=== PATIENT | male | born 1950 | race Caucasian/White ===

== ENCOUNTER 2023-02-10 08:22 | Outpatient (OUT) | payer MEDICARE, SELFPAY ==
[2023-02-11 14:09] LABS: t-Transglutaminase (tTG) IgA 6 U/mL (0-3); t-Transglutaminase (tTG) IgG 9 U/mL (0-5)
== END 2023-02-10 08:23 ==
LOC: LAB 08:30
PROVIDERS: PCP Internal Medicine
DX: K90.0 Celiac disease (principal)
CPT/HCPCS: 36415; 86364

== ENCOUNTER 2023-04-04 09:23 | Outpatient (OUT) | payer MEDICARE, SELFPAY ==
[2023-04-04 10:57] LABS: Anion Gap 14.1; BUN Creatinine Ratio 16.8; Calcium 8.6 mg/dL (8.5-10.1); Carbon Dioxide 23.9 mmol/L (21.0-32.0); Chloride 105 mmol/L (98-107); Estimated GFR (African America >60 (>=60); Estimated GFR (Non-African Ame 53 (>=60); Glucose 96 mg/dL (74-106); Sodium 138 mmol/L (136-145)
== END 2023-04-04 09:24 | disposition home or self-care (01) ==
LOC: LAB 09:25
PROVIDERS: PCP Internal Medicine; Visit Provider Internal Medicine
DX: I10 Essential (primary) hypertension (principal); E87.5 Hyperkalemia
CPT/HCPCS: 36415; 80048

== ENCOUNTER 2023-05-02 09:22 | Outpatient (OUT) | payer MEDICARE, SELFPAY ==
[2023-05-02 10:32] LABS: Anion Gap 11.3; BUN Creatinine Ratio 17.6; Calcium 9.1 mg/dL (8.5-10.1); Carbon Dioxide 26.2 mmol/L (21.0-32.0); Chloride 103 mmol/L (98-107); Estimated GFR (African America >60 (>=60); Estimated GFR (Non-African Ame 51 (>=60); Glucose 92 mg/dL (74-106); Potassium 4.5 mmol/L (3.5-5.1); Sodium 136 mmol/L (136-145)
== END 2023-05-02 09:23 | disposition home or self-care (01) ==
LOC: LAB 09:25
PROVIDERS: PCP Internal Medicine; Visit Provider Internal Medicine
DX: N18.31 Chronic kidney disease, stage 3a (principal)
CPT/HCPCS: 36415; 80048

== ENCOUNTER 2023-05-15 07:49 | Outpatient (OUT) | payer MEDICARE, SELFPAY ==
--- NOTE | 2023-05-15 07:53 | XR_ITS ---
[address] [address] Patient Name: SANTIAGO MONTESINOS MRN: [id number] date: 1950 Sex: M Assigned Patient Location: [facility] Current Patient Location: [facility] Accession/Order Number: [id number] Exam Date: 05/15/2023 08:18 Report Date: 05/15/2023 08:35 At the request of: NON-STAFF PHYSICIAN Procedure: XR DEXA axial skeleton EXAMINATION: XR DEXA axial skeleton, 05/15/2023 8:18 AM EDT HISTORY: Screening For Osteoporosis Z13.820 COMPARISON: None. TECHNIQUE: Dual-energy X-ray absorptiometry (DEXA) bone density study performed for the axial skeleton. HISTORY: Screening For Osteoporosis Z13.820 FINDINGS: Bone mineral the AP spine L1-L4 measures 1.267 g/sq cm. Young adult T score 0.4. WHO classification: Normal. The lowest bone mineral densities the right femoral neck measuring 0.658 g/sq cm. T score -3.2. WHO classification: Osteoporosis XR/XR DEXA axial skeleton IMPRESSION: Osteoporosis. High fracture risk Electronically authenticated by: RUSTY SILVA Date: 05/15/2023 08:35
== END 2023-05-15 07:50 | disposition home or self-care (01) ==
LOC: RAD 07:49
PROVIDERS: PCP Internal Medicine
DX: K90.0 Celiac disease (principal); M85.89 Other specified disorders of bone density and structure, multiple sites; Z13.820 Encounter for screening for osteoporosis; M81.0 Age-related osteoporosis without current pathological fracture
CPT/HCPCS: 77080

== ENCOUNTER 2023-09-19 07:58 | Outpatient (OUT) | payer MEDICARE, SELFPAY ==
[2023-09-19 09:48] LABS: Alanine Aminotransferase 31 U/L (16-63); Albumin Level 3.7 g/dL (3.4-5.0); Alkaline Phosphatase 75 U/L (46-116); Anion Gap 14.6; Aspartate Amino Transferase 23 U/L (15-37); Bilirubin Total 0.5 mg/dL (0.2-1.0); Calcium 8.7 mg/dL (8.5-10.1); Carbon Dioxide 26.6 mmol/L (21.0-32.0); Chloride 104 mmol/L (98-107); Creatine Kinase 124 U/L (39-308); Estimated GFR (African America 58 (>=60); Estimated GFR (Non-African Ame 48 (>=60); Globulin 3.6 g/dL; Glucose 78 mg/dL (74-106); Potassium 5.2 mmol/L (3.5-5.1); Sodium 140 mmol/L (136-145); Thyroid Stimulating Hormone 2.468 uIU/mL (0.358-3.740); Total Protein 7.3 g/dL (6.4-8.2)
[2023-09-19 16:16] LABS: Free T4 0.89 ng/dL (0.76-1.46)
[2023-09-20 04:09] LABS: Testosterone 438 ng/dL (264-916)
[2023-09-21 13:08] LABS: PTH, Intact 56 pg/mL (15-65)
[2023-09-23 13:12] LABS: Albumin, U 65.6 % (.); Alpha-1-Globulin, U 3.4 % (.); Alpha-2-Globulin, U 9.4 % (.); Gamma Globulin, U 7.6 % (.); M-Spike, % Not Observed % (Not Observed)
[2023-09-23 13:12] LABS: Albumin 3.6 g/dL (2.9-4.4); Alpha-1-Globulin 0.2 g/dL (0.0-0.4); Alpha-2-Globulin 0.8 g/dL (0.4-1.0); Immunoglobulin A, Qn, Serum 143 mg/dL (61-437); Immunoglobulin G, Qn, Serum 1089 mg/dL (603-1613); Immunoglobulin M, Qn, Serum 61 mg/dL (15-143); Protein, Total 6.7 g/dL (6.0-8.5)
== END 2023-09-19 07:59 | disposition home or self-care (01) ==
LOC: LAB 08:00
PROVIDERS: PCP Internal Medicine; Visit Provider Internal Medicine Rheumatology
DX: M81.0 Age-related osteoporosis without current pathological fracture (principal); Z51.81 Encounter for therapeutic drug level monitoring; E55.9 Vitamin D deficiency, unspecified
CPT/HCPCS: 36415; 80053; 82306; 82550; 82784; 83970; 84155; 84156; 84165; 84166; 84403; 84439; 84443; 86334; 86335

== ENCOUNTER 2023-12-09 08:33 | Outpatient (OUT) | payer MEDICARE, SELFPAY ==
--- OUTSIDE RECORDS SUMMARY | 2023-12-09 08:55 | XMS_ITS | CCD ---
Author Organization [facility] Care Team Providers Care Process Validation Engineer Name Role Phone Anirudh Wang Unavailable ANIRUDH WANG Primary Care Physician [phone] Asaad, Imad Unavailable ANDREEA ., DR STEVENSON Attending Unavailable ANDREEA ., DR STEVENSON Consulting Unavailable ANDREEA ., DR STEVENSON Admitting Unavailable FELIPE, DR CALLAWAY Primary Care Unavailable BALL, DR CALLAWAY Admitting Unavailable BALL, DR CALLAWAY Attending Unavailable BALL, DR CLALAWAY Consulting Unavailable FELIPE, DR CALLAWAY Primary Care Unavailable ASAADOLFO, IMADOLFO Admitting Unavailable BALL, DR CALLAWAY Primary Care Unavailable ASAAD, HECTOR Attending Unavailable ASAADOLFO, HECTOR Consulting Unavailable WAI DAUGHERTY Attending Unavailable WAI DAUGHERTY Admitting Unavailable SHIRA, DR RUSTY Aguilera Consulting Unavailable FELIPE, DR CALLAWAY Primary Care Unavailable WAI DAUGHERTY Consulting Unavailable FELIPE, DR CALLAWAY Admitting Unavailable BALL, DR CALLAWAY Attending Unavailable BALL, DR CALLAWAY Consulting Unavailable FELIPE, DR CALLAWAY Primary Care Unavailable COURTNEY GILL Consulting Unavailable FELIPE, DR CALLAWAY Admitting Unavailable BALL, DR CALLAWAY Attending Unavailable BALL, DR CALLAWAY Consulting Unavailable FELIPE, DR CALLAWAY Primary Care Unavailable MD Hector Pretty Attending Provider DO Anirudh Wang Primary Care Provider [phone] MD Ryan Cornell Attending Provider Asaadolfo, Imadolfo Attending Unavailable Anirudh Wang Primary Care Unavailable Asaad, Imadolfo Admitting Unavailable Anirudh Wang Primary Care Unavailable Ryan Cornell Admitting Unavailable Ryan Cornell Attending Unavailable Anirudh Wang Primary Care Unavailable Ryan Cornell Admitting Unavailable Ryan Cornell Attending Unavailable Tricia Weiss Unavailable Bijan VELAZQUEZ Attending Unavailable Bijan VELAZQUEZ Attending Unavailable Allergies Allergy Classification Reported Allergen(s) Allergy Type Date of Onset Reaction(s) Facility (20 sources) Doxycycline Drug Allergy Unknown [facility] Other (4 sources) patient allergy list reviewed by nurse or physicia Propensity to adverse reactions Comment:Done [facility] Other (1 source) Doxycycline Drug Allergy Unknown [facility] Other Medications Current Medications Medication Drug Class(es) Dates Sig (Normalized) Sig (Original) alendronic acid 70 mg oral tablet (13 sources) Bisphosphonate Start: 10-24-2023 Alendronate Active 70 MG PO Daily October 24, 2023 1:00am 1 tablet 30 minutes before the first food, beverage or medicine of the day dissolved in 4 ounces of water Start: 05-16-2023 take 1 tablet by leidy th once daily, then take 4 tablets by mouth once daily Alendronate Sodium 70 MG 1 tablet 30 minutes before the first food, beverage or medicine of the day dissolved in 4 ounces of water Orally Once a day for 30 days May, Active amLODIPine 5 mg oral tablet (20 sources) Dihydropyridine Calcium Channel Valdez Start: 11-25-2022 take 5 mg by mouth once daily in the evening Amlodipine Active 5 MG PO Every evening January 23, 2023 12:00am aspirin 81 mg delayed release oral tablet (4 sources) Platelet Aggregation Inhibitor, Nonsteroidal Anti-inflammatory Drug Start: 10-24-2023 take 81 mg by mouth once daily Aspirin Active 81 MG PO Daily October 24, 2023 1:00am take 1 tablet by leidy th every twenty-four hours Aspirin 81 81 MG 1 tablet Orally Once a day Active benazepril hydrochloride 10 mg oral tablet (20 sources) Angiotensin Converting Enzyme Inhibitor Start: 01-23-2023 take 10 mg by mouth once daily Benazepril Active 10 MG PO Daily January 23, 2023 12:00am Start: 11-11-2019 take 1 mg by mouth once daily benazepril 5 mg oral tablet mg tab(s), Oral, Daily, Refills(s) 0 Start Date: 11/11/19 Status: Ordered escitalopram 10 mg oral tablet (5 sources) Serotonin Reuptake Inhibitor Start: 10-24-2023 take 1 tablet by mouth once daily Escitalopram Oxalate Active 10 MG PO Daily October 24, 2023 1:00am FreeTextSi tablet Orally Once a day; Note: Source Status: Taking; Refills: 5; Provider: Felipe Her Start: 08-20-2023 take 1 tablet by leidy th every twenty-four hours Escitalopram Oxalate 10 MG 1 tablet Orally Once a day for 30 days Aug, Active folic acid 1 mg oral tablet (20 sources) Start: 09-27-2022 take 1 mg by mouth once daily Folic Acid Active 1 MG PO Daily January 23, 2023 12:00am Start: 11-22-2019 take 1 tablet by leidy th once daily folic acid 0.4 mg Tab 0.4 mg = 1 tab(s), Oral, Daily, # 100 tab(s), Refills(s) 0 Start Date: 11/22/19 Status: Ordered indomethacin 50 mg oral capsule (20 sources) Nonsteroidal Anti-inflammatory Drug take 1 capsule by mouth every twelve hours Indomethacin 50 MG 1 capsule with food or milk Orally Twice a day Active LORazepam 0.5 mg oral tablet (5 sources) Benzodiazepine Start: take 0.5 mg by mouth every six hours Lorazepam Active 0.5 MG PO Every 6 hours October 24, 2023 1:00am Start: 08-20-2023 take 0.5-1 tablets b y mouth every six hours as needed for anxiety LORazepam 0.5 MG 1/2 - 1 tablet Orally every 6 hours as needed for anxiety for 30 days Aug, Active lubiprostone 0.008 mg oral capsule (7 sources) Chloride Channel Activator Start: 01-28-2023 take 1 capsule by mouth twice daily at mealtime Lubiprostone 8 MCG 1 capsule with food and water Orally Twice a day for 30 days January, Active MiraLax 17 GM/SCOOP (12 sources) Start: 12-18-2022 Start: 12-18-2022 take 17 g by mouth once daily MiraLax 17 GM/SCOOP as directed Orally Once a day for 30 days Dec, Active polysaccharide iron complex 150 mg oral capsule (5 sources) Start: 09-27-2022 take 1 capsule by mouth every twenty-four hours Ferrex 150 150 MG 1 capsule Orally Once a day for 90 days Sep, Active Psyllium (16 sources) Start: 12-02-2022 Start: 12-02-2022 Metamucil 28 % 1 packet with 8 ounces of liquid as needed Orally Once a day for 30 days Nov, Active vitamin B12 (1 source) Vitamin B12 Start: 11-22-2019 Vitamin B12 Re fills(s) 0 Start Date: 11/22/19 Status: Ordered Vitamin D (1 source) Start: 11-20-2020 Vitamin D Inte rnational_Unit, Oral, Daily, Refills(s) 0 Start Date: 11/20/20 Status: Ordered Completed/Discontinued Medications Medication Drug Class(es) Dates Sig (Normalized) Sig (Original) acetaminophen 325 mg / HYDROcodone bitartrate 5 mg oral tablet (2 sources) Opioid Agonist Start: 04-10-2023 End: 10-24-2023 take 1 tablet by mouth every six hours Hydrocodone-Acetami nophen Discontinued 1 TAB PO Q6H 20 April 10, 2023 October 24, 2023 10:55am B-12 - up to 1000 mcg (20 sources) Start: 09-22-2023 B-12 - up to 1000 mcg Sep, 1000 mcg Start: 08-20-2023 B-12 - up to 1 000 mcg Aug, 1 mL Start: 07-21-2023 B-12 - up to 1 000 mcg Jul, 1000 mcg Start: 06-19-2023 B-12 - up to 1 000 mcg Jun, 1000 mcg Start: 05-19-2023 B-12 - up to 1 000 mcg May, 1000 mcg Start: 04-17-2023 B-12 - up to 1 000 mcg Apr, 1000 mcg Start: 03-13-2023 B-12 - up to 1 000 mcg Mar, 1000 mcg Start: 03-13-2023 Start: 02-10-2023 Start: 02-10-2023 B-12 - up to 1 000 mcg Feb, 1000 mcg Start: 01-02-2023 Start: 01-02-2023 B-12 - up to 1 000 mcg Dec, 1000 mcg Start: 12-02-2022 Start: 12-02-2022 B-12 - up to 1 000 mcg Nov, 1000 mcg Start: 10-31-2022 Start: 10-31-2022 B-12 - up to 1 000 mcg Oct, 1000 mcg Start: 09-30-2022 Start: 09-30-2022 B-12 - up to 1 000 mcg Sep, 1000 mcg cholecalciferol 0.025 mg oral tablet (3 sources) Vitamin D Start: 03-27-2023 End: 10-24-2023 take 1 tablet by mouth once daily Cholecalciferol (Vitamin D3) (Vitamin D3) 25 mcg (1,000 unit) Tablet Discontinued 1000 UNIT PO Daily March 27, 2023 12:00am October 24, 2023 10:54am Cyanocobalamin (Vitamin B-12) (Vitamin B-12) 100 mcg/mL Solution (3 sources) Start: 03-27-2023 End: 10-24-2023 Cyanocobalamin (Vitamin B-12) (Vitamin B-12) 100 mcg/mL Solution Discontinued 0 .ROUTE .COMPLEX March 27, 2023 12:00am October 24, 2023 10:54am patient reports vitatmin b-12 shot once a month, unaware of dosage Start: 03-27-2023 Cyanocobalamin (Vitamin B-12) (Vitamin B-12) 100 mcg/mL Solution Active 0 .ROUTE .COMPLEX March 26, 2023 11:00pm patient reports vitatmin b-12 shot once a month, unaware of dosage Start: 03-27-2023 Cyanocobalamin (Vitamin B-12) (Vitamin B-12) 100 mcg/mL Solution Active 0 .ROUTE .COMPLEX March 27, 2023 12:00am patient reports vitatmin b-12 shot once a month, unaware of dosage tamsulosin hydrochloride 0.4 mg oral capsule (20 sources) alpha-Adrenergic Valdez Start: 11-25-2022 End: 10-24-2023 take 0.4 mg by mouth once daily Tamsulosin Discontinued 0.4 MG PO Daily January 23, 2023 12:00am October 24, 2023 10:55am Problems Active Problems Problem Classification Problem Date Documented Da te Episodic/Chronic Abdominal hernia (20 sources) Left inguinal hernia ; Translations: [Unilateral inguinal hernia, without obstruction or gangrene, not specified as recurrent] Onset: 04-10-2023 12-22-2020 Episodic Allergic reactions (11 sources) Allergic contact dermatitis caused by chemical; Translations: [Allergic contact dermatitis due to other chemical products] Episodic Anxiety disorders (8 sources) Generalized anxiety disorder; Translations: [Generalized anxiety disorder] Chronic Biliary tract disease (20 sources) Biliary dyskinesia; Translations: [Other specified diseases of gallbladder] 12-18-2020 Episodic Chronic kidney disease (20 sources) Chronic kidney disease stage 3A ; Translations: [Stage 3a chronic kidney disease (CKD)] 11-05-2023 Chronic Deficiency and other anemia (20 sources) Iron deficiency anemia; Translations: [Iron deficiency anemia, unspecified] Onset: 11-10-2017 Episodic Deficiency and other anemia (20 sources) Pernicious anemia; Translations: [Vitamin B12 deficiency anemia due to intrinsic factor deficiency] 12-18-2020 Episodic Deficiency and other anemia (16 sources) Vitamin B12 deficiency anemia due to intrinsic factor deficiency; Translations: [Pernicious anemia] Episodic Deficiency and other anemia (3 sources) Anemia, unspecified; Translations: [ANEMIA UNSPECIFIED] Onset: 12-05-2022 Episodic Deficiency and other anemia (11 sources) Nutritional anemia; Translations: [Nutritional anemia, unspecified] 12-18-2020 Episodic Deficiency and other anemia (20 sources) Iron deficiency anemia secondary to inadequate dietary iron intake; Translations: [Other iron deficiency anemias] Episodic Deficiency and other anemia (20 sources) Anemia; Translations: [Anemia, unspecified] Onset: 01-26-2017 Episodic Deficiency and other anemia (6 sources) Iron deficiency anemia, unspecified; Translations: [IRON DEFICIENCY ANEMIA UNSPECIFIED] Onset: 01-07-2023 Episodic Deficiency and other anemia (1 source) Nutritional anemia, unspecified; Translations: [Nutritional anemia, unspecified] Episodic Disorders of lipid metabolism (20 sources) Pure hypercholesterolemia ; Translations: [Pure hypercholesterolemia , unspecified] Onset: 09-27-2022 Chronic Essential hypertension (20 sources) Essential hypertension; Translations: [Essential (primary) hypertension] Onset: 09-27-2022 Chronic Genitourinary symptoms and ill-defined conditions (1 source) Urge incontinence of urine 11-22-2019 Chronic Genitourinary symptoms and ill-defined conditions (20 sources) Nocturia; Translations: [Nocturia] Episodic Gout and other crystal arthropathies (20 sources) Gout; Translations: [Gout, unspecified] Chronic Hyperplasia of prostate (20 sources) Lower urinary tract symptoms due to benign prostatic hypertrophy; Translations: [Benign prostatic hyperplasia with lower urinary tract symptoms] Onset: 01-01-2017 Chronic Hypertension with complications and secondary hypertension (20 sources) Chronic kidney disease due to hypertension; Translations: [Hypertensive chronic kidney disease with stage 1 through stage 4 chronic kidney disease, or unspecified chronic kidney disease] Chronic Malaise and fatigue (20 sources) Malaise; Translations: [Other malaise] Onset: 01-01-2017 Episodic Nonspecific chest pain (20 sources) Chest pain; Translations: [Other chest pain] Episodic Osteoporosis (16 sources) Osteoporosis; Translations: [Other osteoporosis without current pathological fracture] Chronic Other aftercare (2 sources) Other moth exterminator (current) drug therapy; Translations: [OTH MINING CONSULTANT CURRENT DRUG THERAPY] Onset: 02-05-2023 Episodic Other diseases of veins and lymphatics (1 source) Venous insufficiency of leg; Translations: [Venous insufficiency (chronic) (peripheral)] 11-05-2023 Episodic Other diseases of veins and lymphatics (1 source) Venous insufficiency (chronic) (peripheral); Translations: [Venous (peripheral) insufficiency, unspecified] 11-05-2023 Episodic Other ear and sense organ disorders (20 sources) Sensorineural hearing loss; Translations: [Unspecified sensorineural hearing loss] 12-18-2020 Chronic Other ear and sense organ disorders (2 sources) Unspecified sensorineural hearing loss; Translations: [Unspecified sensorineural hearing loss] Chronic Other ear and sense organ disorders (11 sources) Sensorineural hearing loss, bilateral; Translations: [Sensorineural hearing loss, bilateral] Onset: 09-06-2016 Chronic Other ear and sense organ disorders (20 sources) Bilateral tinnitus; Translations: [Tinnitus, bilateral] Episodic Other gastrointestinal disorders (20 sources) Celiac disease; Translations: [Celiac disease] Onset: 12-02-2022 11-22-2019 Chronic Other gastrointestinal disorders (11 sources) Celiac disease; Translations: [CELIAC DISEASE] Onset: 12-05-2022 Chronic Other gastrointestinal disorders (20 sources) Chronic idiopathic constipation; Translations: [Chronic idiopathic constipation] Chronic Other gastrointestinal disorders (2 sources) Chronic idiopathic constipation Chronic Other gastrointestinal disorders (10 sources) Irritable bowel syndrome; Translations: [Irritable bowel syndrome without diarrhea] Onset: 12-06-2013 Chronic Other gastrointestinal disorders (1 source) Irritable bowel syndrome without diarrhea; Translations: [Irritable bowel syndrome without diarrhea] Onset: 12-06-2013 Chronic Other gastrointestinal disorders (20 sources) Acute constipation; Translations: [Constipation, unspecified] Episodic Other gastrointestinal disorders (1 source) Alteration in bowel elimination 12-22-2020 Episodic Other gastrointestinal disorders (20 sources) Smearing feces; Translations: [Fecal smearing] Episodic Other gastrointestinal disorders (1 source) Fecal smearing Episodic Other gastrointestinal disorders (20 sources) Constipation; Translations: [Constipation, unspecified] Episodic Other gastrointestinal disorders (7 sources) Constipation, unspecified; Translations: [CONSTIPATION UNSPECIFIED] Onset: 12-30-2022 Episodic Other gastrointestinal disorders (20 sources) Altered bowel function; Translations: [Change in bowel habit] Episodic Other gastrointestinal disorders (20 sources) Flatulence, eructation and gas pain; Translations: [Abdominal distension (gaseous)] Episodic Other gastrointestinal disorders (1 source) Abdominal distension (gaseous) Episodic Other gastrointestinal disorders (1 source) Change in bowel habit Episodic Other injuries and conditions due to external causes (10 sources) History of fall; Translations: [History of falling] Episodic Other injuries and conditions due to external causes (1 source) History of falling; Translations: [History of falling] Episodic Other lower respiratory disease (20 sources) Lung field abnormal; Translations: [Other nonspecific abnormal finding of lung field] Episodic Other lower respiratory disease (2 sources) Other nonspecific abnormal finding of lung field; Translations: [Other nonspecific abnormal finding of lung field] Episodic Other nervous system disorders (2 sources) Acute postoperative pain; Translations: [Other acute postprocedural pain] 08-20-2023 Episodic Other nutritional; endocrine; and metabolic disorders (20 sources) Overweight; Translations: [Overweight] Onset: 11-21-2020 Episodic Other nutritional; endocrine; and metabolic disorders (2 sources) Abnormal weight loss; Translations: [ABNORMAL WEIGHT LOSS] Onset: 12-30-2022 Episodic Other screening for suspected conditions (not mental disorders or infectious disease) (18 sources) Encounter for screening for diseases of the blood and blood-forming organs and certain disorders involving the immune mechanism; Translations: [Encounter for screening for lipoid disorders] Onset: 01-01-2017 Episodic Other upper respiratory infections (11 sources) Acute maxillary sinusitis; Translations: [Acute maxillary sinusitis, unspecified] Episodic Retinal detachments; defects; vascular occlusion; and retinopathy (20 sources) Venous retinal branch occlusion; Translations: [Tributary (branch) retinal vein occlusion, left eye, with macular edema] Onset: 10-15-2021 12-18-2020 Chronic Comment on above: left eye Screening and history of mental health and substance abuse codes (1 source) Encounter for screening for depression; Translations: [Encounter for screening for depression] Episodic Unclassified (1 source) Body mass index 20-24 - normal 12-19-2020 Unclassified (1 source) Bacterial infection, unspecified, in conditions classified elsewhere and of unspecified site; Translations: [Bacterial infection, unspecified, in conditions classified elsewhere and of unspecified site] Onset: 09-06-2016 Unclassified (1 source) Hypertrophy (benign) of prostate without urinary obstruction and other lower urinary tract symptoms [LUTS]; Translations: [Hypertrophy (benign) of prostate without urinary obstruction and other lower urinary tract symptoms [LUTS]] Onset: 01-01-2017 Unclassified (1 source) Encounter for preprocedural laboratory examination; Translations: [Encounter for preprocedural laboratory examination] Onset: 03-27-2023 Urinary tract infections (11 sources) Urinary tract infectious disease; Translations: [Urinary tract infection, site not specified] Episodic Past or Other Problems Problem Classification Problem Date Documented Da te Episodic/Chronic Abdominal pain (17 sources) Left lower quadrant pain; Translations: [Left lower quadrant pain] Onset: 12-25-2022 Resolved: 01-03-2021 12-22-2020 Episodic Acute and unspecified renal failure (12 sources) Acute injury of kidney; Translations: [Acute renal failure syndrome] Resolved: 09-18-2021 12-18-2020 Episodic Bacterial infection; unspecified site (3 sources) Bacterial infectious disease; Translations: [Bacterial infection, unspecified, in conditions classified elsewhere and of unspecified site] Onset: 09-06-2016 Episodic Chronic kidney disease (4 sources) Chronic kidney disease; Translations: [CHRONIC KIDNEY DISEASE STAGE 3A] Onset: 12-05-2022 Deficiency and other anemia (12 sources) Megaloblastic anemia due to poor nutrition; Translations: [Dietary folate deficiency anemia] Resolved: 09-18-2021 12-18-2020 Episodic Headache; including migraine (10 sources) Headache; Translations: [Headache, unspecified] Resolved: 08-15-2020 Episodic Headache; including migraine (1 source) Headache; including migraine; Translations: [Headache, unspecified] Resolved: 08-15-2020 Nutritional deficiencies (11 sources) Vitamin B deficiency; Translations: [Deficiency of other specified B group vitamins] Resolved: 08-15-2020 Episodic Other circulatory disease (10 sources) Elevated blood-pressure reading without diagnosis of hypertension; Translations: [Elevated blood-pressure reading, without diagnosis of hypertension] Onset: 01-01-2017 Episodic Other circulatory disease (1 source) Elevated blood-pressure reading, without diagnosis of hypertension; Translations: [Elevated blood-pressure reading, without diagnosis of hypertension] Onset: 01-01-2017 Episodic Other ear and sense organ disorders (5 sources) Tinnitus; Translations: [Unspecified tinnitus] Onset: 09-06-2016 12-18-2020 Episodic Comment on above: Bilateral Other gastrointestinal disorders (15 sources) Diarrhea; Translations: [Diarrhea] Onset: 12-06-2013 Resolved: 08-15-2020 Episodic Other lower respiratory disease (10 sources) Solitary nodule of lung; Translations: [Solitary pulmonary nodule] Resolved: 08-15-2020 Episodic Other lower respiratory disease (1 source) Solitary pulmonary nodule; Translations: [Solitary pulmonary nodule] Resolved: 08-15-2020 Episodic Other nutritional; endocrine; and metabolic disorders (11 sources) Abnormal weight loss; Translations: [Abnormal weight loss] Onset: 08-14-2018 Episodic Other nutritional; endocrine; and metabolic disorders (1 source) Overweight; Translations: [Overweight] Onset: 11-21-2020 Episodic Other upper respiratory disease (11 sources) Nasal congestion; Translations: [Nasal congestion] Onset: 09-19-2016 Episodic Otitis media and related conditions (11 sources) Eustachian tube salpingitis; Translations: [Unspecified Eustachian salpingitis, right ear] Onset: 09-06-2016 Episodic Pneumonia (except that caused by tuberculosis or sexually transmitted disease) (11 sources) Pneumonia; Translations: [Pneumonia, unspecified organism] Onset: 01-02-2019 Episodic Viral infection (11 sources) Disease caused by 2019-nCoV; Translations: [COVID-19] Resolved: 06-13-2022 Results Test Name Value Interpretation Reference Range Facility Potassiumon 04-10-2023 Potassium [Moles/Vol] 4.3 mmol/L Normal 3.5-5.1 [facility] Comment on above: Result Comment: PERF ORMED BY: [place] [address] PATHOLOGIST FITNESS SPECIALIST ANGELICA SUN M.D. Performed By: #### K #### [address] Basic Metabolic Panelon 03-09 Anion gap [Moles/Vol] 9.5 mmol/L Normal 6.0-15.0 [facility] Comment on above: Performed By: #### C BC, BMP #### [address] Calcium [Mass/Vol] 9.2 mg/dL Normal 8.6-10.3 [facility] Comment on above: Result Comment: PERF ORMED BY: [place] [address] PATHOLOGIST FITNESS SPECIALIST ANGELICA SUN M.D. Performed By: #### C BC, BMP #### [address] Chloride [Moles/Vol] 107 mmol/L Normal 98-107 [facility] Comment on above: Performed By: #### C BC, BMP #### [place] [address] [place] CO2 [Moles/Vol] 28.4 mmol/L Normal 21.0-31.0 [facility] Comment on above: Performed By: #### C BC, BMP #### [facility] [address] [place] [address] [place] Creatinine [Mass/Vol] 1.47 mg/dL High 0.70-1.30 [facility] Comment on above: Performed By: #### C BC, BMP #### [facility] [address] [place] [address] [place] GFR/1.73 sq M.predicted MDRD (S/P/Bld) [Vol rate/Area] 49.742 mL/min/{1.73_m2} Normal [facility] Comment on above: Performed By: #### C BC, BMP #### [facility] [address] Glucose [Mass/Vol] 90 mg/dL Normal 70-100 [facility] Comment on above: Result Comment: [place] Glucose Reference Range is dependent on time and content of last meal. Glucose of more than 200 mg/dL in a nonstressed, ambulatory subject supports the diagnosis of Diabetes Mellitus. ADA recommended reference range Performed By: #### C GARRETT, BMP #### [facility] [address] Potassium [Moles/Vol] 5.9 mmol/L High 3.5-5.1 [facility] Comment on above: Performed By: #### C GARRETT, BMP #### [facility] [address] Sodium [Moles/Vol] 139 mmol/L Normal 136-145 [facility] Comment on above: Performed By: #### C GARRETT, BMP #### [facility] [address] Urea nitrogen [Mass/Vol] 27 mg/dL High 7-25 [facility] Comment on above: Performed By: #### C GARRETT, BMP #### [facility] [address] [place] [address] [place] Basophils Auto (Bld) [#/Vol] Ordered By: Ryan Cornell on 03-27-2023 Basophils (Bld) [#/Vol] 0.0 10*3/uL 0.0-0.2 [facility] Basophils/100 WBC Auto (Bld) Ordered By: Ryan Cornell on 03-27-2023 Basophils/100 WBC (Bld) 0.6 % . F [facility] Calcium [Mass/volume] in Ser um or PlasmaOrdered By: Ryan Cornell on 03-27-2023 Calcium [Mass/Vol] 9.2 mg/dL 8.6-10.3 [facility] Carbon dioxide, total [Moles /volume] in Serum or PlasmaOrdered By: Ryan Cornell on 03-27-2023 CO2 [Moles/Vol] 28.4 mmol/L 21.0-31.0 [facility] Chloride [Moles/volume] in S arturo or PlasmaOrdered By: Ryan Cornell on 03-27-2023 Chloride [Moles/Vol] 107 mmol/L 98-107 [facility] [facility] Blood Count Auto Di ffon 03-27-2023 Basophils (Bld) [#/Vol] 0.0 10*3/uL Normal 0.0-0.2 [facility] Comment on above: Result Comment: PERF ORMED BY: [place] [address] PATHOLOGIST FITNESS SPECIALIST ANGELICA SUN M.D. Performed By: #### C BC, BMP #### [facility] [address] [place] [address] Basophils/100 WBC (Bld) 0.6 % Normal . [facility] Comment on above: Performed By: #### C BC, BMP #### [facility] [address] [place] [address] [place] Eosinophils (Bld) [#/Vol] 0.2 10*3/uL Normal 0.0-0.45 [facility] Comment on above: Performed By: #### C BC, BMP #### [address] Eosinophils/100 WBC (Bld) 3.2 % Normal . [facility] Comment on above: Performed By: #### C BC, BMP #### [address] Erythrocyte distribution width (RBC) [Ratio] 13.3 % Normal 12.0-14.8 [facility] Comment on above: Performed By: #### C BC, BMP #### [address] Hematocrit (Bld) [Volume fraction] 36.5 % Low 38.8-50.0 [facility] Comment on above: Performed By: #### C BC, BMP #### [facility] [address] Hemoglobin (Bld) [Mass/Vol] 12.3 g/dL Low 13.0-17.0 [facility] Comment on above: Performed By: #### C BC, BMP #### [facility] [address] Lymphocytes (Bld) [#/Vol] 1.6 10*3/uL Normal 1.00-4.8 [facility] Comment on above: Performed By: #### C BC, BMP #### [facility] [address] Lymphocytes/100 WBC (Bld) 24.3 % Normal . [facility] Comment on above: Performed By: #### C BC, BMP #### [facility] [address] MCH (RBC) [Entitic mass] 31.8 pg Normal 27.5-35.2 [facility] Comment on above: Performed By: #### C BC, BMP #### [facility] [address] MCV (RBC) [Entitic vol] 94.2 fL Normal 83.5-101 [facility] Comment on above: Performed By: #### C BC, BMP #### [facility] [address] Mean Corpuscular HGB Conc 33.7 g/dL Normal 32.5-35.6 [facility] Comment on above: Performed By: #### C BC, BMP #### [facility] [address] [place] [address] [place] Monocytes (Bld) [#/Vol] 0.7 10*3/uL Normal 0.0-0.8 [facility] Comment on above: Performed By: #### C BC, BMP #### [facility] [address] [place] [address] [place] Monocytes/100 WBC (Bld) 11.1 % Normal . [facility] Comment on above: Performed By: #### C BC, BMP #### [facility] [address] [place] [id number] [place] Neutrophils (Bld) [#/Vol] 3.9 10*3/uL Normal 1.8-7.7 [facility] Comment on above: Performed By: #### C GARRETT, BMP #### [facility] [address] [place] [id number] [place] Neutrophils/100 WBC (Bld) 60.8 % Normal . [facility] Comment on above: Performed By: #### C GARRETT, BMP #### [facility] [address] [place] [address] [place] NRBC% 0.1 /100{WBC} Normal 0-0.5 [facility] Comment on above: Performed By: #### C GARRETT, BMP #### [facility] [address] Platelet mean volume (Bld) [Entitic vol] 7.9 fL Normal 6.6-10.1 [facility] Comment on above: Performed By: #### C GARRETT, BMP #### [facility] [address] [place] [address] [place] Platelets (Bld) [#/Vol] 235 10*3/uL Normal 150-450 [facility] Comment on above: Performed By: #### C GARRETT, BMP #### [facility] [address] [place] [id number] [place] RBC (Bld) [#/Vol] 3.87 10*6/uL Low 3.90-5.60 [facility] Comment on above: Performed By: #### C GARRETT, BMP #### [facility] [address] [place] [id number] [place] WBC (Bld) [#/Vol] 6.5 10*3/uL Normal 4.1-10.5 [facility] Comment on above: Performed By: #### C GARRETT, BMP #### [facility] [address] [place] [phone] [place] Creatinine [Mass/volume] in Serum or PlasmaOrdered By: Ryan Cornell on 03-27-2023 Creatinine [Mass/Vol] 1.47 mg/dL 0.70-1.30 [facility] ECG 12 lead ECGon 03-27-2023 ECG 12 lead ECG [facility] [place] [address] Electrocardiograph Report Signed Patient: Marcelino Escobar MR#: [id number] 48 : 1950 Acct:[id number] Age/Sex: 72 / M ADM Date: 03/27/23 Loc: Room: Type: [facility] Attending Dr: Ryan Cornell MD Ordering Provider: Ryan Cornell MD Date of Service: 03/27/23 ECG/ECG 12 lead ECG: pst Copies to: Test Reason : Blood Pressure : / mmHG Vent. Rate : 056 BPM Atrial Rate : 056 BPM P-R Int : 232 ms QRS Dur : 094 ms QT Int : 396 ms P-R-T Axes : 012 -37 002 degrees QTc Int : 382 ms Sinus bradycardia with marked sinus arrhythmia with 1st degree AV block Left axis deviation Abnormal ECG No previous ECGs available Confirmed by DUGLAS HERNANDEZ MD ([id number]) on 03/28/2023 8:07:43 AM Referred By: DR CORNELL Electronically Signed By:DUGLAS HERNANDEZ MD Transcribed By: MUS Signed By Duglas Hernandez MD 0807 Normal [facility] Eosinophils Auto (Bld) [#/Vo l]Ordered By: Ryan Cornell on 03-27-2023 Eosinophils (Bld) [#/Vol] 0.2 10*3/uL 0.0-0.45 [facility] Eosinophils/100 WBC Auto (Bl d)Ordered By: Ryan Cornell on 03-27-2023 Eosinophils/100 WBC (Bld) 3.2 % . [facility] Erythrocyte distribution wid th Auto (RBC) [Ratio]Ordered By: Ryan Cornell on 03-27-2023 Erythrocyte distribution width (RBC) [Ratio] 13.3 % 12.0-14.8 [facility] Glucose [Mass/volume] in Ser um or PlasmaOrdered By: Ryan Cornell on 03-27-2023 Glucose [Mass/Vol] 90 mg/dL 70-100 [facility] Comment on above: ADA recommended refe rence rangeRandom Glucose Reference Range is dependent on time and content of last meal. Glucose of more than 200 mg/dL in a nonstressed, ambulatory subject supports the diagnosis of Diabetes Mellitus. Hematocrit Auto (Bld) [Volum e fraction]Ordered By: Ryan Cornell on 03-27-2023 Hematocrit (Bld) [Volume fraction] 36.5 % 38.8-50.0 [facility] Hemoglobin [Mass/volume] in BloodOrdered By: Ryan Cornell on 03-27-2023 Hemoglobin (Bld) [Mass/Vol] 12.3 g/dL 13.0-17.0 [facility] Leukocytes [#/volume] correc denis for nucleated erythrocytes in Blood by Automated counOrdered By: Ryan Cornell on 03-27-2023 WBC corrected for nucl RBC Auto (Bld) [#/Vol] 6.5 10*3/uL 4.1-10.5 [facility] Lymphocytes Auto (Bld) [#/Vo l]Ordered By: Ryan Cornell on 03-27-2023 Lymphocytes (Bld) [#/Vol] 1.6 10*3/uL 1.00-4.8 [facility] Lymphocytes/100 WBC Auto (Bl d)Ordered By: Ryan Cornell on 03-27-2023 Lymphocytes/100 WBC (Bld) 24.3 % . [facility] MCH Auto (RBC) [Entitic mass ]Ordered By: Ryan Cornell on 03-27-2023 MCH (RBC) [Entitic mass] 31.8 pg 27.5-35.2 [facility] MCHC Auto (RBC) [Mass/Vol]Or dered By: Ryan Cornell on 03-27-2023 MCHC (RBC) [Mass/Vol] 33.7 g/dL 32.5-35.6 [facility] MCV Auto (RBC) [Entitic vol] Ordered By: Ryan Cornell on 03-27-2023 MCV (RBC) [Entitic vol] 94.2 fL 83.5-101 [facility] Monocytes Auto (Bld) [#/Vol] Ordered By: Ryan Cornell on 03-27-2023 Monocytes (Bld) [#/Vol] 0.7 10*3/uL 0.0-0.8 [facility] Monocytes/100 WBC Auto (Bld) Ordered By: Ryan Cornell on 03-27-2023 Monocytes/100 WBC (Bld) 11.1 % . [facility] Neutrophils Auto (Bld) [#/Vo l]Ordered By: Ryan Cornell on 03-27-2023 Neutrophils (Bld) [#/Vol] 3.9 10*3/uL 1.8-7.7 [facility] Neutrophils/100 WBC Auto (Bl d)Ordered By: Ryan Cornell on 03-27-2023 Neutrophils/100 WBC (Bld) 60.8 % . [facility] No Panel InformationOrdered By: Ryan Cornell on 03-27-2023 Estimated GFR (CKD-EPI) 49.742 mL/Min [facility] Creatinine Clearance (Chem N/A [facility] Nucleated erythrocytes [Pres ence] in Blood by Automated countOrdered By: Ryan Cornell on 03-27-2023 Nucleated RBC Auto Ql (Bld) 0.1 /100{WBC} 0-0.5 [facility] Platelet mean volume Auto (B ld) [Entitic vol]Ordered By: Ryan Cornell on 03-27-2023 Platelet mean volume (Bld) [Entitic vol] 7.9 fL 6.6-10.1 [facility] Platelets Auto (Bld) [#/Vol] Ordered By: Ryan Cornell on 03-27-2023 Platelets (Bld) [#/Vol] 235 10*3/uL 150-450 [facility] Potassium [Moles/volume] in Serum or PlasmaOrdered By: Ryan Cornell on 03-27-2023 Potassium [Moles/Vol] 5.9 mmol/L 3.5-5.1 [facility] RBC Auto (Bld) [#/Vol]Ordere d By: Ryan Cornell on 03-27-2023 RBC (Bld) [#/Vol] 3.87 10*6/uL 3.90-5.60 [facility] Serum or plasma anion gap de terminationOrdered By: Ryan Cornell on 03-27-2023 Anion gap [Moles/Vol] 9.5 mmol/L 6.0-15.0 [facility] Sodium [Moles/volume] in Ser um or PlasmaOrdered By: Ryan Cornell on 03-27-2023 Sodium [Moles/Vol] 139 mmol/L 136-145 [facility] Urea nitrogen [Mass/volume] in Serum or PlasmaOrdered By: Ryan Cornell on 03-27-2023 Urea nitrogen [Mass/Vol] 27 mg/dL 7-25 [facility] WBC Auto (Bld) [#/Vol]Ordere d By: Ryan Cornell on 03-27-2023 WBC (Bld) [#/Vol] 6.5 10*3/uL 4.1-10.5 [facility] CBC AUTO DIFFon 02-04-2023 BASO # 0.0 103/ul Normal 0.0-0.1 [facility] Comment on above: Performed By: #### C BC #### [facility] [address] [place] [address] Dr. Haley Mays Basophils/100 WBC (Bld) 0.4 % Normal 0.2-2.0 [facility] Comment on above: Performed By: #### C BC #### [facility] [address] [place] [address] Dr. Haley Mays EO # 0.0 103/ul Normal 0.0-0.7 [facility] Comment on above: Performed By: #### C BC #### [facility] [address] [address] [address] Haley Mays Eosinophils/100 WBC (Bld) 0.5 % Critically low 0.9-7.0 [facility] Comment on above: Performed By: #### C BC #### [facility] [address] [place] [address] Dr. Haley Mays Erythrocyte distribution width (RBC) [Ratio] 12.3 % Normal 11.0-15.0 [facility] Comment on above: Performed By: #### C BC #### [facility] [address] [place] [address] Dr. Haley Mays Hematocrit (Bld) [Volume fraction] 33.2 % Critically low 42.0-54.0 [facility] Comment on above: Performed By: #### C BC #### [facility] [address] [place] [address] Dr. Haley Mays Hemoglobin (Bld) [Mass/Vol] 11.6 g/dL Critically low 14.0-18.0 [facility] Comment on above: Performed By: #### C BC #### [facility] [address] [place] [address] Dr. Haley Masy IG # 0.05 10e3/ul Critically high 0.00-0.03 [facility] Comment on above: Performed By: #### C BC #### [facility] [address] [place] [address] Dr. Haley Mays IG % 0.9 % Critically high 0.0-0.5 [facility] Comment on above: Performed By: #### C BC #### [facility] [address] [place] [address] Dr. Haley Mays LYMPH # 1.3 103/ul Normal 1.2-3.8 [facility] Comment on above: Performed By: #### C BC #### [facility] [address] [place] [address] Dr. Haley Mays Lymphocytes/100 WBC (Bld) 21.9 % Normal 20.5-60.0 [facility] Comment on above: Performed By: #### C BC #### [facility] [address] [place] [address] Dr. Haley Mays MANUAL DIFF REQ NO Normal [facility] Comment on above: Performed By: #### C BC #### [facility] [address] [place] [address] Dr. Haley Mays MCH (RBC) [Entitic mass] 32.0 pg Normal 25.9-34.0 [facility] Comment on above: Performed By: #### C BC #### [facility] [address] [address] [address] Haley Mays MCHC (RBC) [Mass/Vol] 34.9 g/dL Normal 29.9-35.2 [facility] Comment on above: Performed By: #### C BC #### [facility] [address] [address] [address] Haley Mays MCV (RBC) [Entitic vol] 91.5 fL Normal 80.0-94.0 [facility] Comment on above: Performed By: #### C BC #### [facility] [address] [address] [address] Haley Mays MONO # 0.7 103/ul Normal 0.3-0.8 [facility] Comment on above: Performed By: #### C BC #### [facility] [address] [place] [address] Dr. Haley Mays Monocytes/100 WBC (Bld) 11.6 % Normal 1.7-12.0 [facility] Comment on above: Performed By: #### C BC #### [facility] [address] [place] [address] Dr. Haley Mays NEUT # 3.7 103/ul Normal 1.4-6.5 [facility] Comment on above: Performed By: #### C BC #### [facility] [address] [place] [address] Dr. Haley Mays Neutrophils/100 WBC (Bld) 64.7 % Normal 43.0-75.0 [facility] Comment on above: Performed By: #### C BC #### [facility] [address] [place] [address] Dr. Haley Mays Platelet mean volume (Bld) [Entitic vol] 9.1 fL Critically low 9.5-13.5 [facility] Comment on above: Performed By: #### C BC #### [facility] [address] [place] [address] Dr. Haley Mays PLT 281 103/ul Normal 150-450 [facility] Comment on above: Performed By: #### C BC #### [facility] [address] [address] [address] Haley Mays RBC 3.63 106/ul Critically low 4.70-6.10 [facility] Comment on above: Performed By: #### C BC #### [facility] [address] [address] [address] Haley Mays WBC 5.7 103/ul Normal 4.0-11.0 [facility] Comment on above: Performed By: #### C BC #### [facility] [address] [address] [address] Haley Mays PROF CHEM 8 (BAS METB)on Anion gap [Moles/Vol] 15.2 mmol/L Normal [facility] Comment on above: Performed By: #### B MP #### [facility] [address] [place] [address] Dr. Haley Mays Calcium [Mass/Vol] 8.8 mg/dL Normal 8.5-10.1 [facility] Comment on above: Performed By: #### B MP #### [facility] [address] [address] [address] Haley Mays Chloride [Moles/Vol] 97 mmol/L Critically low 98-107 [facility] Comment on above: Performed By: #### B MP #### [facility] [address] [place] [address] Dr. Haley Mays CO2 [Moles/Vol] 23.5 mmol/L Normal 21.0-32.0 [facility] Comment on above: Performed By: #### B MP #### [facility] [address] [place] [address] Dr. Haley Mays Creatinine [Mass/Vol] 1.44 mg/dL Critically high 0.70-1.30 [facility] Comment on above: Performed By: #### B MP #### [facility] [address] [place] [address] Dr. Haley Mays EGFR-AF BAR[place] 58 mL/min/1.73m2 Critically low >=60 [facility] Comment on above: Performed By: #### B MP #### [facility] [address] [address] [address] Haley Mays EGFR-NON AF [place] 48 mL/min/1.73m2 Critically low >=60 [facility] Comment on above: Performed By: #### B MP #### [facility] [address] [address] [address] Haley Mays Glucose [Mass/Vol] 129 mg/dL Critically high 74-106 [facility] Comment on above: Performed By: #### B MP #### [facility] [address] [address] [address] Haley Mays Potassium [Moles/Vol] 4.7 mmol/L Normal 3.5-5.1 [facility] Comment on above: Performed By: #### B MP #### [facility] [address] [address] [address] Haley Mays Sodium [Moles/Vol] 131 mmol/L Critically low 136-145 [facility] Comment on above: Performed By: #### B MP #### [facility] [address] [address] [address] Haley Mays Urea nitrogen [Mass/Vol] 16.0 mg/dL Normal 7.0-18.0 [facility] Comment on above: Performed By: #### B MP #### [facility] [address] [address] [address] Haley Mays Urea nitrogen/Creatinine [Mass ratio] 11.1 mg/mg Normal [facility] Comment on above: Performed By: #### B MP #### [facility] [address] [address] [address] Haley Mays XR KUB 1 VIEWon 02-04-2023 XR KUB 1 VIEW EXAMINATION: XR KUB 1 VIEW HISTORY: Pain COMPARISON: No relevant comparison available. FINDINGS: BOWEL GAS PATTERN: No abnormal dilation or deviation. CALCIFICATIONS: None significant. OTHER: Mild bilateral hip osteoarthropathy. Degenerative spondylosis. No abnormal gaseous collections. IMPRESSION: Nonobstructive bowel gas pattern Electronically authenticated by: RUSTY SILVA Date: 2023-02-04 13:57 Normal [facility] 01-23-2023 L - -------- Specimen: [id number] Received: 01/24/23 Status: TONY Rosen Num: [id number] Spec Type: Surgical Subm Dr: Hector Pretty MD Tissues: A Stomach - Biopsy/Polyp (DUOD BX) B Colon Biopsy (RNDM COL BX) C Colon Biopsy (DESC COL POLYP) Procedures: HE/6, Gross/Micro L4/3 -------- Age/ Patient Sex Location Account Attending Physician -------- Marcelino Escobar 72/M [id number] Hector Pretty MD -------- SPEC NUM: [id number] RECD: 01/24/23 STATUS: TONY ROSEN NUM: [id number] REGINALDO: 01/23/23- SUBM DR: Hector Pretty MD ENTERED: 01/24/[address] [facility] [address]: SPEC TYPE: Surgical DEPT: S ENTERED BY: [id number] RECV BY: [id number] ORDERED: HE/6, Gross/Micro L4/3 ORDERED: HE/6, Gross/Micro L4/3 Pathological Diagnosis A. Small bowel, duodenum, biopsy: - Villous blunting without significant intraepithelial lymphocytosis. (See Comment). - No granuloma, parasite, or dysplasia seen. B. Colon, random, biopsy: - Colonic mucosa, no significant histopathologic changes. C. Colon, descending, polyps, biopsy: - Hyperplastic polyp of colon. COMMENT: Recommend tTGA serologic study (98% sensitivity for celiac disease), if not already performed. Clinical Information Celiac disease, constipation, change in bowel habits, rule out celiac, rule out microscopic colitis -------- Specimen: [id number] Received: 01/24/23 Status: TONY [facility] Num: [id number] Spec Type: Surgical Subm Dr: Hector Pretty MD Tissues: A Stomach - Biopsy/Polyp (DUOD BX) B Colon Biopsy (RNDM COL BX) C Colon Biopsy (DESC COL POLYP) Procedures: HE/6, Gross/Micro L4/3 -------- Patient: Marcelino Escobar [id number] (Continued) -------- Specimen: [id number] Received: 01/24/23 (Continued) Signed (signature on file) Pop Perze MD 01/27/23 1005 -------- Specimen: [id number] Received: 01/24/23 Status: TONY Rosen Num: [id number] Spec Type: Surgical Subm Dr: Hector Pretty MD Tissues: A Stomach - Biopsy/Polyp (DUOD BX) B Colon Biopsy (RNDM COL BX) C Colon Biopsy (DESC COL POLYP) Procedures: [place]/Janeth Hairston/Dianna L4/3 -------- Patient: Marcelino Escobar [id number] (Continued) -------- Specimen: [id number] Received: 01/24/23 (Continued) Gross Description A. Received in formalin labeled with the patient's name, number and duodenal biopsy are two fragments of soft sharma tissue averaging 0.2 cm. Entirely submitted in one cassette labeled A1. B. Received in formalin labeled with the patient's name, number and random colon biopsy are two fragments of soft sharma tissue averaging 0.2 cm. Entirely submitted in one cassette labeled B1. C. Received in formalin labeled with the patient's name, number and descending colon polyps are multiple fragments of soft sharma tissue and fecal material measuring 2.0 x 1.3 x 0.2 cm in aggregate. Entirely submitted in one cassette labeled C1. Microscopic Description A. Two H E slides reviewed. The microscopic examination confirms the diagnosis. B. Two H E slides reviewed. The microscopic examination confirms the diagnosis. C. Two H E slides reviewed. The microscopic examination confirms the diagnosis. CPT Codes 91415?3 -------- -------- Specimen: [id number] Received: 01/24/23 Status: TONY Rosen Num: [id number] Spec Type: Surgical Subm Dr: Hector Pretty MD Tissues: A Stomach - Biopsy/Polyp (DUOD BX) B Colon Biopsy (RNDM COL BX) C Colon Biopsy (DESC COL POLYP) Procedures: HE/6, Gross/Micro L4/3 -------- Patient: Marcelino Escobar [id number] (Continued) -------- Signed (signature on file) Pop Perez MD 01/27/23 1005 Normal [facility] CBC AUTO DIFFon 01-07-2023 BASO # 0.0 103/ul Normal 0.0-0.1 [facility] Comment on above: Performed By: #### C BC #### [facility] [address] [place] [address] Dr. Haley Mays Basophils/100 WBC (Bld) 0.5 % Normal 0.2-2.0 [facility] Comment on above: Performed By: #### C BC #### [facility] [address] [place] [address] Dr. Haley Mays EO # 0.1 103/ul Normal 0.0-0.7 [facility] Comment on above: Performed By: #### C BC #### [facility] [address] [place] [address] Dr. Haley Mays Eosinophils/100 WBC (Bld) 0.8 % Critically low 0.9-7.0 [facility] Comment on above: Performed By: #### C BC #### [facility] [address] [place] [address] Dr. Haley Mays Erythrocyte distribution width (RBC) [Ratio] 12.6 % Normal 11.0-15.0 [facility] Comment on above: Performed By: #### C BC #### [facility] [address] [address] [address] Haley Mays Hematocrit (Bld) [Volume fraction] 37.7 % Critically low 42.0-54.0 [facility] Comment on above: Performed By: #### C BC #### [facility] [address] [address] [address] Haley Mays Hemoglobin (Bld) [Mass/Vol] 12.3 g/dL Critically low 14.0-18.0 [facility] Comment on above: Performed By: #### C BC #### [facility] [address] [place] [address] Dr. Haley Mays IG # 0.05 10e3/ul Critically high 0.00-0.03 [facility] Comment on above: Performed By: #### C BC #### [facility] [address] [place] [address] Dr. Haley Mays IG % 0.8 % Critically high 0.0-0.5 [facility] Comment on above: Performed By: #### C BC #### [facility] [address] [place] [address] Dr. Haley Mays LYMPH # 1.5 103/ul Normal 1.2-3.8 [facility] Comment on above: Performed By: #### C BC #### [facility] [address] [place] [address] Dr. Haley Mays Lymphocytes/100 WBC (Bld) 25.0 % Normal 20.5-60.0 [facility] Comment on above: Performed By: #### C BC #### [facility] [address] [place] [address] Dr. Haley Mays MANUAL DIFF REQ NO Normal [facility] Comment on above: Performed By: #### C BC #### [facility] [address] [place] [address] Dr. Haley Mays MCH (RBC) [Entitic mass] 31.1 pg Normal 25.9-34.0 [facility] Comment on above: Performed By: #### C BC #### [facility] [address] [address] [address] Haley Mays MCHC (RBC) [Mass/Vol] 32.6 g/dL Normal 29.9-35.2 [facility] Comment on above: Performed By: #### C BC #### [facility] [address] [place] [address] Dr. Haley Mays MCV (RBC) [Entitic vol] 95.4 fL Critically high 80.0-94 .0 [facility] Comment on above: Performed By: #### C BC #### [facility] [address] [place] [address] Dr. Haley Mays MONO # 0.7 103/ul Normal 0.3-0.8 [facility] Comment on above: Performed By: #### C BC #### [facility] [address] [place] [address] Dr. Haley Mays Monocytes/100 WBC (Bld) 11.3 % Normal 1.7-12.0 [facility] Comment on above: Performed By: #### C BC #### [facility] [address] [place] [address] Dr. Haley Mays NEUT # 3.8 103/ul Normal 1.4-6.5 [facility] Comment on above: Performed By: #### C BC #### [facility] [address] [place] [address] Dr. Haley Mays Neutrophils/100 WBC (Bld) 61.6 % Normal 43.0-75.0 [facility] Comment on above: Performed By: #### C BC #### [facility] [address] [place] [address] Dr. Haley Mays Platelet mean volume (Bld) [Entitic vol] 9.2 fL Critically low 9.5-13.5 [facility] Comment on above: Performed By: #### C BC #### [facility] [address] [place] [address] Dr. Haley Mays PLT 300 103/ul Normal 150-450 [facility] Comment on above: Performed By: #### C BC #### [facility] [address] [place], [place] [address] Dr. Haley Mays RBC 3.95 106/ul Critically low 4.70-6.10 [facility] Comment on above: Performed By: #### C BC #### [facility] [address] [place], [place] [address] Dr. Haley Mays WBC 6.1 103/ul Normal 4.0-11.0 [facility] Comment on above: Performed By: #### C BC #### [facility] [address] [place], [place] [address] ABD/PELV W CONon 12-26-19 CT ABD/PELV W CON EXAMINATION: CT ABD/PELV W CON 12/25/2022 HISTORY: Left lower quadrant pain COMPARISON: CT abdomen and pelvis 12/11/2020. TECHNIQUE: Following the intravenous administration of 99 mL of Omnipaque 300, axial soft tissue windows of the abdomen and pelvis were performed with coronal and sagittal reformats. Dose reduction techniques were achieved by using automated exposure control and/or adjustment of mA and/or kV according to patient size and/or use of iterative reconstruction technique. Findings: Stable 0.2 cm right lower lobe nodule (image #20 of series 3). Given the duration of stability this is likely benign. ABDOMEN: The liver, spleen, pancreas, and adrenal glands are unremarkable. Mild nonspecific bilateral perinephric fat stranding. No renal stones or collecting system dilatation. Left lower pole low-attenuation lesion, too small to characterize. The visualized portions of the bilateral ureters are nondilated. The bowel is unremarkable without evidence of wall thickening or obstruction. The appendix is nondilated. The aorta is normal caliber. No enlarged abdominal lymph nodes or free abdominal fluid. Pelvis: Mild circumferential bladder wall thickening likely relates to lack of distention. No bladder calculi. The prostate is nonenlarged. No enlarged pelvic lymph nodes or free pelvic fluid. Tiny fat-containing left inguinal hernia. This is smaller when compared to the prior study. No aggressive sclerotic or lytic osseous lesions. Regions of mild to moderate multilevel degenerative spondylosis in the lumbar spine. IMPRESSION: 1. No acute abdominal or pelvic abnormality. 2. Interval reduction in size in the previously identified fat-containing left inguinal hernia. Electronically authenticated by: COURTNEY GILL Date: 2022-12-25 08:48 Normal [facility] Complete Blood Count and Dif kodak 12-03-2022 Anisocytosis Ql (Bld) [facility] [employer] Other Basophilic stippling LM Ql (Bld) [facility] [employer] Other RBC morphology finding Nom (Bld) [facility] [employer] Other IMMUNOGLOBULIN IGA QUANTITIA VEon 12-03-2022 Immunoglobulin A, Qn, Serum 321 mg/dL Normal 61-437 [facility] Comment on above: Performed By: #### C BC #### [facility] [address] [place] [address] Dr. Haley Mays Lab Reportson 12-03-2022 Lab Reports [id number]. 00CD:127 Normal [facility] TISSUE TRANSGLUTAMINASE IGGo n 12-03-2022 t-Transglutaminase (tTG) IgG 11 U/mL Critically high 0-5 [facility] Comment on above: Result Comment: Nega tive 0 - 5 Weak Positive 6 - 9 Positive >9 Performed By: #### T RNSIGG #### [facility] [address] [place] [address] [address] Haley Mays TRANSGLUTAMINASE IGAon 12-03 t-Transglutaminase (tTG) IgA >100 Critically high 0-3 [facility] Comment on above: Result Comment: Nega tive 0 - 3 Weak Positive 4 - 10 Positive >10 . Tissue Transglutaminase (tTG) has been identified as the endomysial antigen. Studies have demonstr- ated that endomysial IgA antibodies have over 99% specificity for gluten sensitive enteropathy. Performed By: #### C BC #### [facility] [address] [place] [address] Dr. Haley Mays tTG IgA/IgG Transglutaminase on 12-03-2022 tTG IgA/IgG Transglutaminase [facility] [employer] Other Basic Metabolic Panelon 11-07 Anion gap [Moles/Vol] 14.2 mmol/L Normal No rt [employer] Other Comment on above: Performed By: #### B MP #### [facility] [address] [place] [address] [address] Haley Mays Calcium [Mass/Vol] 8.6395540 mg/dL 8.5-10 .1 mg/dL [facility] [employer] Other Chloride [Moles/Vol] 110 mmol/L Critically high 98-107 [facility] [employer] Other Comment on above: Performed By: #### B MP #### [facility] [address] [place] [address] [address] Haley Mays CO2 [Moles/Vol] 26.59386115 mmol/L 21.0-3 2.0 mmol/L [employer] Other Creatinine [Mass/Vol] 1.04823446 mg/dL Critically high 0.70-1.30 mg/dL [place] [employer] Other Potassium [Moles/Vol] 5.03790101 mmol/L Critically hig h 3.5-5.1 mmol/L [employer] Other Urea nitrogen [Mass/Vol] 25.0550455 mg/dL Critically high 7.0-18.0 mg/dL [employer] Other Urea nitrogen/Creatinine [Mass ratio] 18.8 mg/mg Normal [facility] [employer] Other Comment on above: Performed By: #### B MP #### [facility] [address] [place] [address] [address] Haley Mays Basic Metabolic Panel see note Nor [employer] Other Basic Metabolic Panel 145 mmol/L 136-14 5 mmol/L [employer] Other Basic Metabolic Panel 106 mg/dL 74-106 mg/dL [employer] Other Basic Metabolic Panel 53 mL/min/1.73m2 Critically low >=60 mL/min/1.73 m2 [employer] Other Basic Metabolic Panel >60 mL/min/1.73m2 > =60 mL/min/1.73 m2 [employer] Other CBC AUTO DIFFon 12-02-2022 BASO # 0.0 103/ul Normal 0.0-0.1 [facility] Comment on above: Performed By: #### C BC #### [facility] [address] [place] [address] Dr. Haley Mays Basophils/100 WBC (Bld) 0.3 % Normal 0.2-2.0 [facility] Comment on above: Performed By: #### C BC #### [facility] [address] [place] [address] Dr. Haley Mays EO # 0.1 103/ul Normal 0.0-0.7 [facility] Comment on above: Performed By: #### C BC #### [facility] [address] [place] [address] Dr. Haley Mays Eosinophils/100 WBC (Bld) 1.6 % Normal 0.9-7.0 [facility] Comment on above: Performed By: #### C BC #### [facility] [address] [place] [address] Dr. Haley Mays Erythrocyte distribution width (RBC) [Ratio] 12.9 % Normal 11.0-15.0 [facility] Comment on above: Performed By: #### C BC #### [facility] [address] [place] [address] Dr. Haley Mays Hematocrit (Bld) [Volume fraction] 36.7 % Critically low 42.0-54.0 [facility] Comment on above: Performed By: #### C BC #### [facility] [address] [place] [address] Dr. Haley Mays Hemoglobin (Bld) [Mass/Vol] 11.9 g/dL Critically low 14.0-18.0 [facility] Comment on above: Performed By: #### C BC #### [facility] [address] [place] [address] Dr. Haley Mays IG # 0.07 10e3/ul Critically high 0.00-0.03 [facility] Comment on above: Performed By: #### C BC #### [facility] [address] [place] [address] Dr. Haley Mays IG % 1.2 % Critically high 0.0-0.5 [facility] Comment on above: Performed By: #### C BC #### [facility] [address] [place] [address] Dr. Haley Mays LYMPH # 1.4 103/ul Normal 1.2-3.8 [facility] Comment on above: Performed By: #### C BC #### [facility] [address] [place] [address] Dr. Haley Mays Lymphocytes/100 WBC (Bld) 23.4 % Normal 20.5-60.0 [facility] Comment on above: Performed By: #### C BC #### [facility] [address] [place] [address] Dr. Haley Mays MANUAL DIFF REQ NO Normal [facility] Comment on above: Performed By: #### C BC #### [facility] [address] [place] [address] Dr. Haley Mays MCH (RBC) [Entitic mass] 30.7 pg Normal 25.9-34.0 [facility] Comment on above: Performed By: #### C BC #### [facility] [address] [place] [address] Dr. Haley Mays MCHC (RBC) [Mass/Vol] 32.4 g/dL Normal 29.9-35.2 [facility] Comment on above: Performed By: #### C BC #### [facility] [address] [place] [address] Dr. Haley Mays MCV (RBC) [Entitic vol] 94.6 fL Critically high 80.0-94 .0 [facility] Comment on above: Performed By: #### C BC #### [facility] [address] [place] [address] Dr. Haley Mays MONO # 0.7 103/ul Normal 0.3-0.8 [facility] Comment on above: Performed By: #### C BC #### [facility] [address] [place] [address] [address] Haley Mays Monocytes/100 WBC (Bld) 11.5 % Normal 1.7-12.0 [facility] Comment on above: Performed By: #### C BC #### [facility] [address] [place] [address] [address] Haley Mays NEUT # 3.8 103/ul Normal 1.4-6.5 [facility] Comment on above: Performed By: #### C BC #### [facility] [address] [place] [address] [address] Haley Mays Neutrophils/100 WBC (Bld) 62.0 % Normal 43.0-75.0 [facility] Comment on above: Performed By: #### C BC #### [facility] [address] [place] [address] Dr. Haley Mays Platelet mean volume (Bld) [Entitic vol] 9.4 fL Critically low 9.5-13.5 [facility] Comment on above: Performed By: #### C BC #### [facility] [address] [place] [address] Dr. Haley Mays PLT 269 103/ul Normal 150-450 [facility] Comment on above: Performed By: #### C BC #### [facility] [address] [place] [address] [address] Haley Mays RBC 3.88 106/ul Critically low 4.70-6.10 [facility] Comment on above: Performed By: #### C BC #### [facility] [address] [place] [address] [address] Haley Mays WBC 6.1 103/ul Normal 4.0-11.0 [facility] Comment on above: Performed By: #### C BC #### [facility] [address] [place] [address] Dr. Haley Mays FERRITINon 12-02-2022 Ferritin [Mass/Vol] 57.0 ng/mL Normal 26.0-388.0 [facility] Comment on above: Performed By: #### C BC #### [facility] [address] [place] [address] [address] Haley Mays Ferritin [Mass/Vol] 57.4864067 ng/mL 26.0 -388.0 ng/mL [facility] [employer] Other IRON AND TIBCon 12-02-2022 % SATURATION 34.5 % Normal [facility] Comment on above: Performed By: #### C BC #### [facility] [address] [place] [address] [address] Haley Mays Iron [Mass/Vol] 88.0 ug/dL Normal 65.0-175.0 [facility] Comment on above: Performed By: #### C BC #### [facility] [address] [place] [address] [address] Haley Mays TIBC DIRECT 255.0 ug/dL Normal 250.0-450.0 [facility] Comment on above: Performed By: #### C BC #### [facility] [address] [place] [address] [address] Haley Mays Iron [Mass/Vol] 88.1532058 ug/dL 65.0-175 .0 ug/dL [facility] [employer] Other IRON AND TIBC 255.0 ug/dL 250.0-450.0 ug/dL [employer] Other IRON AND TIBC 34.5 % [employer] Other PROF CHEM 8 (BAS METB)on Calcium [Mass/Vol] 8.7 mg/dL Normal 8.5-10.1 [facility] Comment on above: Performed By: #### B MP #### [facility] [address] [place] [address] [address] Haley Mays CO2 [Moles/Vol] 26.0 mmol/L Normal 21.0-32.0 [facility] Comment on above: Performed By: #### B MP #### [facility] [address] [place] [address] [address] Haley Mays Creatinine [Mass/Vol] 1.33 mg/dL Critically high 0.70-1.30 [facility] Comment on above: Performed By: #### B MP #### [facility] [address] [place] [address] [address] Haley Mays EGFR-AF BARBADIAN >60 Normal >=60 [facility] Comment on above: Performed By: #### B MP #### [facility] [address] [place] [address] [address] Haley Mays EGFR-NON AF BAR[place]IAN 53 mL/min/1.73m2 Critically low >=60 [facility] Comment on above: Performed By: #### B MP #### [facility] [address] [place] [address] [address] Haley Mays Glucose [Mass/Vol] 106 mg/dL Normal 74-106 [facility] Comment on above: Performed By: #### B MP #### [facility] [address] [place] [address] [address] Haley Mays Potassium [Moles/Vol] 5.2 mmol/L Critically high 3.5-5.1 [facility] Comment on above: Performed By: #### B MP #### [facility] [address] [place] [address] Dr. Haley Mays Sodium [Moles/Vol] 145 mmol/L Normal 136-145 [facility] Comment on above: Performed By: #### B MP #### [facility] [address] [place] [address] [address] Haley Mays Urea nitrogen [Mass/Vol] 25.0 mg/dL Critically high 7.0-18.0 [facility] Comment on above: Performed By: #### B MP #### [facility] [address] [place] [address] [address] Haley Mays VIT B12 AND FOLATEon 2022 FOLATE 19.60 ng/mL Normal 8.60-58.90 [facility] Comment on above: Performed By: #### C BC #### [facility] [address] [place] [address] Dr. Haley Mays Cobalamin (Vitamin B12) [Mass/Vol] pg/mL Critically high 193.0-986.0 [employer] Other Comment on above: Performed By: #### C BC #### [facility] [address] [place] [address] Dr. Haley Mays VIT B12 AND FOLATE 19.60 ng/mL 8.60-58.9 0 ng/mL [employer] Other [facility] 11-26-2022 Screens [id number] .[id number]:127 [facility] [place] Ambulatory Visit Summaryon 0 11-25-2022 Ambulatory Visit Summary MARCELINO ESCOBAR :1950 Visit Date:11/25/2022 Ambulatory Visit Instructions Your Diagnosis BPH with urinary obstruction Tests Performed Urnls Dip Stick Auto w/o Microscopy POC [address] Your Care Team Attending Physician - Bijan VELAZQUEZ MD Primary Care Physician - ANIRUDH WANG DO This Is Your Medications List Contact prescribing physician if questions or concerns amlodipine (amLODIPine 5 mg Tab) benazepril (benazepril 5 mg oral tablet) cyanocobalamin (Vitamin B12) ergocalciferol (Vitamin D) folic acid (folic acid 0.4 mg Tab) tamsulosin (tamsulosin 0.4 mg Cap) Procedures Performed Laparoscopic cholecystostomy (09/08/2013), Colonoscopy (09/08/2011), EGD (esophagogastroduoden oscopy) gastric outlet reduction (09/08/2011), Repair of left inguinal hernia (09/08/1974), History of knee surgery, vasectomy. Discharge Vitals Heart Rate (Peripheral) 69 Respiratory Rate 16 Blood Pressure 137/74 Height 180 cm Height 71 in Weight 78 kg Weight 171.6 lb BMI 24.07 What to do next Scheduled Follow-Up Appointments Friday 8:30 AM EDT With: Bijan VELAZQUEZ MD Where: [facility] Patient Educationon 11-26-19 23 Patient Education Urology Benign Prostatic Hyperplasia Benign prostatic hyperplasia (BPH) is an enlarged prostate gland that is caused by the normal aging process and not by cancer. The prostate is a walnut-sized gland that is involved in the production of semen. It is located in front of the rectum and below the bladder. The bladder stores urine and the urethra is the tube that carries the urine out of the body. The prostate may get bigger as a man gets older. An enlarged prostate can press on the urethra. This can make it harder to pass urine. The build-up of urine in the bladder can cause infection. Back pressure and infection may progress to bladder damage and kidney (renal) failure. What are the causes? This condition is part of a normal aging process. However, not all men develop problems from this condition. If the prostate enlarges away from the urethra, urine flow will not be blocked. If it enlarges toward the urethra and compresses it, there will be problems passing urine. What increases the risk? This condition is more likely to develop in men over the age of 50 years. What are the signs or symptoms? Symptoms of this condition include: ? Getting up often during the night to urinate. ? Needing to urinate frequently during the day. ? Difficulty starting urine flow. ? Decrease in size and strength of your urine stream. ? Leaking (dribbling) after urinating. ? Inability to pass urine. This needs immediate treatment. ? Inability to completely empty your bladder. ? Pain when you pass urine. This is more common if there is also an infection. ? Urinary tract infection (UTI). How is this diagnosed? This condition is diagnosed based on your medical history, a physical exam, and your symptoms. Tests will also be done, such as: ? A post-void bladder scan. This measures any amount of urine that may remain in your bladder after you finish urinating. ? A digital rectal exam. In a rectal exam, your health care provider checks your prostate by putting a lubricated, gloved finger into your rectum to feel the back of your prostate gland. This exam detects the size of your gland and any abnormal lumps or growths. ? An exam of your urine (urinalysis). ? A prostate specific antigen (PSA) screening. This is a blood test used to screen for prostate cancer. ? An ultrasound. This test uses sound waves to electronically produce a picture of your prostate gland. Your health care provider may refer you to a specialist in kidney and prostate diseases (urologist). How is this treated? Once symptoms begin, your health care provider will monitor your condition (active surveillance or watchful waiting). Treatment for this condition will depend on the severity of your condition. Treatment may include: ? Observation and yearly exams. This may be the only treatment needed if your condition and symptoms are mild. ? Medicines to relieve your symptoms, including: ? Medicines to shrink the prostate. ? Medicines to relax the muscle of the prostate. ? Surgery in severe cases. Surgery may include: ? Prostatectomy. In this procedure, the prostate tissue is removed completely through an open incision or with a laparoscope or robotics. ? Transurethral resection of the prostate (TURP). In this procedure, a tool is inserted through the opening at the tip of the penis (urethra). It is used to cut away tissue of the inner core of the prostate. The pieces are removed through the same opening of the penis. This removes the blockage. ? Transurethral incision (TUIP). In this procedure, small cuts are made in the prostate. This lessens the prostate's pressure on the urethra. ? Transurethral microwave thermotherapy (TUMT). This procedure uses microwaves to create heat. The heat destroys and removes a small amount of prostate tissue. ? Transurethral needle ablation (TUNA). This procedure uses radio frequencies to destroy and remove a small amount of prostate tissue. ? Interstitial laser coagulation (ILC). This procedure uses a laser to destroy and remove a small amount of prostate tissue. ? Transurethral electrovaporization (TUVP). This procedure uses electrodes to destroy and remove a small amount of prostate tissue. ? Prostatic urethral lift. This procedure inserts an implant to push the lobes of the prostate away from the urethra. Follow these instructions at home: ? Take ofiw-fyp-opedjrc and prescription medicines only as told by your health care provider. ? Monitor your symptoms for any changes. Contact your health care provider with any changes. ? Avoid drinking large amounts of liquid before going to bed or out in public. ? Avoid or reduce how much caffeine or alcohol you drink. ? Give yourself time when you urinate. ? Keep all follow-up visits as told by your health care provider. This is important. Contact a health care provider if: ? You have unexplained back pain. ? Your symptoms do not get better with treatment. ? You d (more content not included)... Normal [facility] Urology Office/Clinic Noteon 11-25-2022 Urology Office/Clinic Note Chief Complaint 1yr PSA HPI Staff 1yr PSA DX: BPH & Urge Incontinence PSA done 11/18/22- 1.16 Dr Wang started py on Tamsulosin 0.4mg QD therapy. States he had UTI back in June. That's when he was started on Tamsulosin. Was having cloudy urine, increased frequency. Tx'd with Abx as well. Has not really noticed any changes with Tamsulosin therapy. 2x/night for yrs. Occasional leaking/incontinence. Not very often. Is not concerned with it at this time. IPSS 6 History of Present Illness Tests reviewed: reviewed UA, PSA. I have reviewed the previous health record information and history for this patient from Dr. Velazquez. I have reviewed and verified the staff HPI to be accurate for this encounter. There have been no associated fever, chills, flank pain, or blood in the urine. Denies any urinary infections since last encounter. Review of Systems PHQ Score Initial Depression Screen Score: 0 ROS - Provider Constitutional: denies weight loss, denies hot flashes. Eyes: denies eye problems. Gastrointestinal: denies nausea, denies vomiting. Cardiovascular: denies chest pain or angina. Integumentary: no dryness Musculoskeletal: denies musculoskeletal symptoms. ENMT: denies otolaryngeal symptoms. Respiratory: no shortness of breath. Heme/Lymph: denies easy bleeding tendency, denies easy bruising tendency. Psychiatric: no confusion, no anxiety. Genitourinary: See HPI. Physical Exam Vitals & Measurements HR: 69(Peripheral) RR: 16 BP: 137/74 HT: 71 in HT: 180 cm WT: 78 kg WT: 171.6 lb BMI: 24.07 General Appearance: alert, no distress, well nourished, well developed male. Genitourinary: normal scrotum, normal testes, normal urethra, normal epididymis, normal vas deferens/spermatic cord. Flank Pain: none. Bladder: nonpalpable. Assessment/Plan 1. BPH with urinary obstruction (N40.1: Benign prostatic hyperplasia with lower urinary tract symptoms) PSA: 11/08/20 - 1.43 11/14/21 - 1.60 11/18/22 - 1.16 UA today negative for blood and infection. IPSS 6. Taking Flomax 0.4 mg qd through PCP. Started taking after he had a UTI (cloudy urine, increased frequency) in June, tx'd with abx. Has not noticed any changes on Flomax. PSA remains low and stable. Discussed d/c PSA screenings due to advanced age, low hx of PSA, and non-suspicious DREs. Pt would prefer to continue to monitor Follow up 1 year with PSA, TERRY or sooner if needed. Pt understands and agrees with plan. -cont Flomax (has refills, can call this office or Dr. Wang's for refills) Follow-up With When Contact Information ANDREEA DIXON, Bijan Ruby, URL [facility] [address], [place] [address]- Additional Instructions: 1 yr PSA, TERRY Patient Education Benign Prostatic Hyperplasia I, Marlys Asfhord, personally scribed for Dr. Velazquez on 11/25/2022 08:58:30. . Documentation recorded by the scribe, Marlys Ashford, accurately reflects the services(s) I performed and decisions made by me. Authenticated by Dr. Velazquez on 11/25/2022 09:00:40. Problem List/Past Medical History Ongoing Abdominal pain, left lower quadrant BMI 23.0-23.9, adult BPH with urinary obstruction Celiac disease Constipation in male Hypertension Left inguinal hernia Urge incontinence Historical Acute injury of kidney Biliary dyskinesia Dietary folate deficiency anemia Nutritional anemia Pernicious anemia Retinal vein occlusion Sensorineural hearing loss Tinnitus Procedure/Surgical History Laparoscopic cholecystostomy (09/08/2013), Colonoscopy (09/08/2011), EGD (esophagogastroduoden oscopy) gastric outlet reduction (09/08/2011), Repair of left inguinal hernia (09/08/1974), History of knee surgery, vasectomy. Medications amLODIPine 5 mg Tab benazepril 5 mg oral tablet, Oral, Daily folic acid 0.4 mg Tab, 0.4 mg= 1 tab(s), Oral, Daily tamsulosin 0.4 mg Cap Vitamin B12 Vitamin D, Oral, Daily Allergies No Known Allergies Social History Tobacco - No Risk, 12/18/2020 Never (less than 100 in lifetime) Tobacco Use:. Never Smokeless Tobacco Use:., 11/25/2022 Family History Metastatic cancer: Father. Parkinson disease: Mother. Immunizations Vaccine Date Status Comments influenza virus vaccine, inactivated - Not Given Patient Refuses influenza virus vaccine, live, trivalent - Not Given Patient Refuses Lab Results Ambulatory Point of Care Results Bilirubin Urine Dipstick: Negative (11/25/22 08:33:00) Blood Urine Dipstick: Negative (11/25/22 08:33:00) Glucose Urine Dipstick: Negative (11/25/22 08:33:00) Ketones Urine Dipstick: Negative (11/25/22 08:33:00) Leukocytes Urine Dipstick: Negative (11/25/22 08:33:00) Nitrite Urine Dipstick: Negative (11/25/22 08:33:00) Protein Urine Dipstick: Negative (11/25/22 08:33:00) Specific [place] Urine Dipstick: 1.010 (11/25/22 08:33:00) Urine Appearance Urine Dipstick: Clear (11/25/22 08:33:00) Urine [place] (more content not included)... Normal [facility] Comment on above: Result Comment: Elec tronically Signed By: Bijan VELAZQUEZ MD R\.br\Date and Time Signed: 11/25/22 09:00 EDT\.br\Electronically Co-Signed By: Marlys Ashford\.br\Date and Time Co-Signed: 11/25/22 08:58 EDT CBC AUTO DIFFon 09-20-2022 BASO # 0.0 103/ul Normal 0.0-0.1 [facility] Comment on above: Performed By: #### C BC #### [facility] [address] [address] [address] Haley Mays Basophils/100 WBC (Bld) 0.3 % Normal 0.2-2.0 [facility] Comment on above: Performed By: #### C BC #### [facility] [address] [place] [address] Dr. Haley Mays EO # 0.1 103/ul Normal 0.0-0.7 [facility] Comment on above: Performed By: #### C BC #### [facility] [address] [address] [address] Haley Mays Eosinophils/100 WBC (Bld) 1.4 % Normal 0.9-7.0 [facility] Comment on above: Performed By: #### C BC #### [facility] [address] [place] [address] Dr. Haley Mays Erythrocyte distribution width (RBC) [Ratio] 12.9 % Normal 11.0-15.0 [facility] Comment on above: Performed By: #### C BC #### [facility] [address] [place] [address] Dr. Haley Mays Hematocrit (Bld) [Volume fraction] 39.5 % Critically low 42.0-54.0 [facility] Comment on above: Performed By: #### C BC #### [facility] [address] [place] [address] Dr. Haley Mays Hemoglobin (Bld) [Mass/Vol] 11.9 g/dL Critically low 14.0-18.0 [facility] Comment on above: Performed By: #### C BC #### [facility] [address] [place] [address] Dr. Haley Mays IG # 0.06 10e3/ul Critically high 0.00-0.03 [facility] Comment on above: Performed By: #### C BC #### [facility] [address] [place] [address] Dr. Haley Mays IG % 0.9 % Critically high 0.0-0.5 [facility] Comment on above: Performed By: #### C BC #### [facility] [address] [place] [address] Dr. Haley Mays LYMPH # 1.7 103/ul Normal 1.2-3.8 [facility] Comment on above: Performed By: #### C BC #### [facility] [address] [place] [address] Dr. Haley Mays Lymphocytes/100 WBC (Bld) 25.6 % Normal 20.5-60.0 [facility] Comment on above: Performed By: #### C BC #### [facility] [address] [place] [address] Dr. Haley Mays MANUAL DIFF REQ NO Normal [facility] Comment on above: Performed By: #### C BC #### [facility] [address] [place] [address] Dr. Haley Mays MCH (RBC) [Entitic mass] 31.4 pg Normal 25.9-34.0 [facility] Comment on above: Performed By: #### C BC #### [facility] [address] [place] [address] Dr. Haley Mays MCHC (RBC) [Mass/Vol] 30.1 g/dL Normal 29.9-35.2 [facility] Comment on above: Performed By: #### C BC #### [facility] [address] [place] [address] Dr. Haley Mays MCV (RBC) [Entitic vol] 104.2 fL Critically high 80.0-94 .0 [facility] Comment on above: Performed By: #### C BC #### [facility] [address] [place] [address] Dr. Haley Mays MONO # 0.9 103/ul Critically high 0.3-0.8 [facility] Comment on above: Performed By: #### C BC #### [facility] [address] [place] [address] Dr. Haley Mays Monocytes/100 WBC (Bld) 14.0 % Critically high 1.7-12. 0 [facility] Comment on above: Performed By: #### C BC #### [facility] [address] [place] [address] Dr. Haley Mays NEUT # 3.7 103/ul Normal 1.4-6.5 [facility] Comment on above: Performed By: #### C BC #### [facility] [address] [place] [address] Dr. Haley Mays Neutrophils/100 WBC (Bld) 57.8 % Normal 43.0-75.0 [facility] Comment on above: Performed By: #### C BC #### [facility] [address] [address] [address] Haley Mays Platelet mean volume (Bld) [Entitic vol] 9.6 fL Normal 9.5-13.5 [facility] Comment on above: Performed By: #### C BC #### [facility] [address] [address] [address] Haley Mays PLT 291 103/ul Normal 150-450 [facility] Comment on above: Performed By: #### C BC #### [facility] [address] [address] [address] Haley Mays RBC 3.79 106/ul Critically low 4.70-6.10 [facility] Comment on above: Performed By: #### C BC #### [facility] [address] [address] [address] Haley Mays WBC 6.4 103/ul Normal 4.0-11.0 [facility] Comment on above: Performed By: #### C BC #### [facility] [address] [place] [address] Dr. Haley Mays LIPID PROFILEon 09-20-2022 CHOL-HDL RATIO NORM SEE BELOW Normal [facility] Comment on above: Result Comment: 3.3 - 4.4 LOW RISK 4.4 - 7.1 AVERAGE RISK 7.1 - 11.0 MODERATE RISK >11.0 HIGH RISK Performed By: #### L IPID, BMP, ALT #### [facility] [address] [place] [address] Dr. Haley Mays Cholesterol [Mass/Vol] 123 mg/dL Normal <=200 [facility] Comment on above: Performed By: #### L IPID, BMP, ALT #### [facility] [address] [address] [address] Haley Mays Cholesterol in HDL [Mass/Vol] 26 mg/dL Critically low 40-60 [facility] Comment on above: Performed By: #### L IPID, BMP, ALT #### [facility] [address] [address] [address] Haley Mays Cholesterol in LDL [Mass/Vol] 57.6 mg/dL Normal [facility] Comment on above: Performed By: #### L IPID, BMP, ALT #### [facility] [address] [address] [address] Haley Mays Cholesterol.total/Tri sterol in HDL [Mass ratio] 4.7 {ratio} Normal [facility] Comment on above: Performed By: #### L IPID, BMP, ALT #### [facility] [address] [address] [address] Haley Mays HDL NORMAL > or = 60 mg/dl - LO W CARDIOVASCULAR RISK <40 mg/dl - HIGH CARDIOVASCULAR RISK Normal [facility] Comment on above: Performed By: #### L IPID, BMP, ALT #### [facility] [address] [place] [address] Dr. Haley Mays LDL CALC NORMAL SEE BELOW Normal [facility] Comment on above: Result Comment: <100 mg/dl OPTIMAL 100 - 129 mg/dl NEAR OR ABOVE OPTIMAL 130 - 159 mg/dl BORDERLINE HIGH 160 - 189 mg/dl HIGH >190 mg/dl VERY HIGH Performed By: #### L IPID, BMP, ALT #### [facility] [address] [place] [address] Dr. Haley Myas Triglyceride [Mass/Vol] 197 mg/dL Critically high <=150 [facility] Comment on above: Performed By: #### L IPID, BMP, ALT #### [facility] [address] [address] [address] Haley Mays VLDL CALC 39.4 mg/dL Normal [facility] Comment on above: Performed By: #### L IPID, BMP, ALT #### [facility] [address] [address] [address] Haley Mays PROF CHEM 8 (BAS METB)on Anion gap [Moles/Vol] 13.9 mmol/L Normal [facility] Comment on above: Performed By: #### L IPID, BMP, ALT #### [facility] [address] [address] [address] Haley Mays Calcium [Mass/Vol] 8.6 mg/dL Normal 8.5-10.1 [facility] Comment on above: Performed By: #### L IPID, BMP, ALT #### [facility] [address] [address] [address] Haley Mays Chloride [Moles/Vol] 105 mmol/L Normal 98-107 [facility] Comment on above: Performed By: #### L IPID, BMP, ALT #### [facility] [address] [place] [address] Dr. Haley Mays CO2 [Moles/Vol] 25.1 mmol/L Normal 21.0-32.0 [facility] Comment on above: Performed By: #### L IPID, BMP, ALT #### [facility] [address] [place] [address] Dr. Haley Mays Creatinine [Mass/Vol] 1.47 mg/dL Critically high 0.70-1.30 [facility] Comment on above: Performed By: #### L IPID, BMP, ALT #### [facility] [address] [place] [address] Dr. Haley Mays EGFR-AF BARBADIAN 57 mL/min/1.73m2 Critically low >=60 [facility] Comment on above: Performed By: #### L IPID, BMP, ALT #### [facility] [address] [place] [address] Dr. Haley Mays EGFR-NON AF BAR[place]IAN 47 mL/min/1.73m2 Critically low >=60 [facility] Comment on above: Performed By: #### L IPID, BMP, ALT #### [facility] [address] [place] [address] Dr. Haley Mays Glucose [Mass/Vol] 71 mg/dL Critically low 74-106 [facility] Comment on above: Performed By: #### L IPID, BMP, ALT #### [facility] [address] [place] [address] Dr. aHley Mays Potassium [Moles/Vol] 5.0 mmol/L Normal 3.5-5.1 [facility] Comment on above: Performed By: #### L IPID, BMP, ALT #### [facility] [address] [place], [place] [address] Dr. Haley Mays Sodium [Moles/Vol] 139 mmol/L Normal 136-145 [facility] Comment on above: Performed By: #### L IPID, BMP, ALT #### [facility] [address] [address] [address] Haley Mays Urea nitrogen [Mass/Vol] 27.0 mg/dL Critically high 7.0-18.0 [facility] Comment on above: Performed By: #### L IPID, BMP, ALT #### [facility] [address] [address] [address] Haley Mays Urea nitrogen/Creatinine [Mass ratio] 18.4 mg/mg Normal [facility] Comment on above: Performed By: #### L IPID, BMP, ALT #### [facility] [address] [address] [address] Haley Mays [facility] 09-20-2022 ALT [Catalytic activity/Vol] 37 U/L Normal 16-63 [facility] Comment on above: Performed By: #### L IPID, BMP, ALT #### [facility] [address] [address] [address] Haley Mays Vital Signs Date Time Vital Sign Value Performing Clinician Facility 11-05-2023 11:43-0500 Body height 182.88 cm [facility] 11-05-2023 11:43-0500 Body mass index (BMI) [Ratio] 24.5 kg/m2 [facility] 11-05-2023 11:43-0500 Body weight 82.1 kg [facility] 11-05-2023 11:43-0500 Diastolic blood pressure 83 mm[Hg] [facility] 11-05-2023 11:43-0500 Heart rate 87 /min [facility] 11-05-2023 11:43-0500 Respiratory rate 12 /min [facility] 11-05-2023 11:43-0500 Systolic blood pressure 158 mm[Hg] [facility] 09-19-2023 09:30-0500 Body height 182.88 cm Anirudh Ball Other [facility] 09-19-2023 09:30-0500 Body mass index (BMI) [Ratio] 23.62 kg/m2 Anirudh Ball Other [facility] [employer] Other 09-19-2023 09:30-0500 Body weight 79.02 kg Anirudh Ball Other [facility] [employer] Other 09-19-2023 09:30-0500 Body weight 79.01 kg [facility] 09-19-2023 09:30-0500 Diastolic blood pressure 80 mm[Hg] Anirudh Ball Other [facility] 09-19-2023 09:30-0500 Respiratory rate 12 /min Anirudh Ball Other [facility] [employer] Other 09-19-2023 09:30-0500 Systolic blood pressure 135 mm[Hg] Anirudh Ball Other [facility] 08-20-2023 08:45-0500 Body height 182.88 cm Anirudh Ball Other [facility] 08-20-2023 08:45-0500 Body mass index (BMI) [Ratio] 22.62 kg/m2 Anirudh Ball Other [facility] [employer] Other 08-20-2023 08:45-0500 Body weight 75.66 kg Anirudh Ball Other [facility] [employer] Other 08-20-2023 08:45-0500 Body weight 75.65 kg [facility] 08-20-2023 08:45-0500 Diastolic blood pressure 93 mm[Hg] Anirudh Ball Other [facility] 08-20-2023 08:45-0500 Respiratory rate 12 /min Anirudh Ball Other [facility] [employer] Other 12-13-2023 08:45-0500 Systolic blood pressure 177 mm[Hg] Anirudh Ball Other [facility] 04-17-2023 11:00-0400 Body height 182.88 cm Anirudh Ball Other [employer] Other 04-17-2023 11:00-0400 Body mass index (BMI) [Ratio] 22.51 kg/m2 Anirudh Ball Other [employer] Other 04-17-2023 11:00-0400 Body weight 75.3 kg Anirudh Ball Other [employer] Other 04-17-2023 11:00-0400 Diastolic blood pressure 76 mm[Hg] Anirudh Ball Other [employer] Other 04-17-2023 11:00-0400 Systolic blood pressure 144 mm[Hg] Anirudh Ball Other [employer] Other 04-14-2023 14:00-0400 Body height 182.88 cm Imad Asaad Other [employer] Other 04-14-2023 14:00-0400 Body mass index (BMI) [Ratio] 22.38 kg/m2 Imad Asaad Other [employer] Other 04-14-2023 14:00-0400 Body weight 74.84 kg Imad Asaad Other [employer] Other 04-14-2023 14:00-0400 Diastolic blood pressure 85 mm[Hg] Imad Asaad Other [employer] Other 04-14-2023 14:00-0400 Systolic blood pressure 149 mm[Hg] Imad Asaad Other [employer] Other 02-05-2023 09:30-0400 Body height 182.88 cm Anirudh Ball Other [employer] Other 02-05-2023 09:30-0400 Body mass index (BMI) [Ratio] 20.67 kg/m2 Anirudh Ball Other [employer] Other 02-05-2023 09:30-0400 Body weight 69.13 kg Anirudh Ball Other [employer] Other 02-05-2023 09:30-0400 Diastolic blood pressure 74 mm[Hg] Anirudh Ball Other [employer] Other 02-05-2023 09:30-0400 Respiratory rate 12 /min Anirudh Ball Other [employer] Other 02-05-2023 09:30-0400 Systolic blood pressure 129 mm[Hg] Anirudh Ball Other [employer] Other 01-23-2023 16:15-0400 Diastolic blood pressure 88 mm[Hg] DO Anirudh Ball Work Phone: [facility] 01-23-2023 16:15-0400 Heart rate 68 /min DO Anirudh Ball Work Phone: [facility] 01-23-2023 16:15-0400 Respiratory rate 16 /min DO Anirudh Ball Work Phone: [facility] 01-23-2023 16:15-0400 SaO2% (BldA) [Mass fraction] 99 % DO Anirudh Ball Work Phone: [facility] 01-23-2023 16:15-0400 Systolic blood pressure 128 mm[Hg] DO Anirudh Ball Work Phone: [facility] 01-23-2023 13:44-0400 Body height 180.34 cm DO Anirudh Ball Work Phone: [facility] 01-23-2023 13:44-0400 Body weight 69.39 kg DO Anirudh Ball Work Phone: [facility] 01-06-2023 14:15-0400 Body height 182.88 cm Imad Asaad Other [employer] Other 01-06-2023 14:15-0400 Body mass index (BMI) [Ratio] 21.7 kg/m2 Imad Asaad Other [employer] Other 01-06-2023 14:15-0400 Body weight 72.58 kg Imad Asaad Other [employer] Other 01-06-2023 14:15-0400 Diastolic blood pressure 84 mm[Hg] Imad Asaad Other [employer] Other 01-06-2023 14:15-0400 Systolic blood pressure 150 mm[Hg] Imad Asaad Other [employer] Other 12-18-2022 12:30-0400 Body height 182.88 cm Anirudh Ball Other [employer] Other 12-18-2022 12:30-0400 Body mass index (BMI) [Ratio] 21.62 kg/m2 Anirudh Ball Other [employer] Other 12-18-2022 12:30-0400 Body weight 72.3 kg Anirudh Ball Other [employer] Other 12-18-2022 12:30-0400 Diastolic blood pressure 69 mm[Hg] Anirudh Ball Other [employer] Other 12-18-2022 12:30-0400 Respiratory rate 12 /min Anirudh Ball Other [employer] Other 12-18-2022 12:30-0400 Systolic blood pressure 114 mm[Hg] Anirudh Ball Other [employer] Other 12-02-2022 11:00-0400 Body height 182.88 cm Anirudh Ball Other [employer] Other 12-02-2022 11:00-0400 Body mass index (BMI) [Ratio] 21.64 kg/m2 Anirudh Ball Other [employer] Other 12-02-2022 11:00-0400 Body weight 72.39 kg Anirudh Ball Other [employer] Other 12-02-2022 11:00-0400 Diastolic blood pressure 83 mm[Hg] Anirudh Ball Other [employer] Other 12-02-2022 11:00-0400 Respiratory rate 12 /min Anirudh Ball Other [employer] Other 12-02-2022 11:00-0400 Systolic blood pressure 149 mm[Hg] Anirudh Ball Other [employer] Other 11-25-2022 08:34-0400 Blood Pressure Location Bijan VELAZQUEZ [facility] 11-25-2022 08:34-0400 Diastolic blood pressure 74 mm[Hg] Bijan VELAZQUEZ [facility] 11-25-2022 08:34-0400 Heart rate 69 /min Bijan VELAZQUEZ [facility] 11-25-2022 08:34-0400 Respiratory rate 16 /min Bijan VELAZQUEZ [facility] 11-25-2022 08:34-0400 Systolic blood pressure 137 mm[Hg] Bijan VELAZQUEZ [facility] 09-20-2022 09:30-0500 Body height 182.88 cm Anirudh [employer] Other [employer] Other 09-20-2022 09:30-0500 Body mass index (BMI) [Ratio] 22.46 kg/m2 Anirudh [employer] Other [employer] Other 09-20-2022 09:30-0500 Body weight 75.12 kg Anirudh [employer] Other [employer] Other 09-20-2022 09:30-0500 Diastolic blood pressure 62 mm[Hg] Anirudh [employer] Other [employer] Other 09-20-2022 09:30-0500 Respiratory rate 12 /min Anirudh [employer] Other [employer] Other 09-20-2022 09:30-0500 Systolic blood pressure 118 mm[Hg] Anirudh Ball Other [employer] Other Encounters Encounter Date Encounter Type Care Provider Facility Start: 12-22-2023 ambulatory Bijan VELAZQUEZ Facili ty:[facility] Start: 11-28-2023 End: 11-28-2023 ambulatory [facility] Work Phone: Start: 11-28-2023 End: 11-28-2023 Patient encounter procedure [facility] Work Phone: Start: 11-05-2023 End: 11-05-2023 Patient encounter procedure [facility] Work Phone: Start: 10-24-2023 End: 10-24-2023 ambulatory [facility] Work Phone: Start: 10-24-2023 End: 10-24-2023 Patient encounter procedure [facility] Work Phone: Start: 09-22-2023 End: 09-22-2023 ambulatory Anirudh Ball Other [employer] Other Start: 09-22-2023 Nursing evaluation o f patient and report Anirudh Ball [facility] Start: 09-19-2023 End: 09-19-2023 ambulatory Anirudh Ball Other [employer] Other Start: 09-19-2023 Office outpatient visit 15 minutes Anirudh Ball [facility] Start: 09-19-2023 End: 09-19-2023 Patient encounter procedure [facility] Work Phone: Start: 08-20-2023 End: 08-20-2023 ambulatory Anirudh Ball Other [employer] Other Start: 08-20-2023 Office outpatient visit 15 minutes Anirudh Ball [facility] Start: 08-20-2023 End: 08-20-2023 Patient encounter procedure [facility] Work Phone: Start: 08-06-2023 End: 08-06-2023 ambulatory Anirudh Ball Other [employer] Other Start: 08-06-2023 Telephone encounter Anirudh Ball [facility] Start: 07-28-2023 End: 07-28-2023 ambulatory Anirudh Ball Other [employer] Other Start: 07-28-2023 Telephone encounter Anirudh Ball [facility] Start: 07-21-2023 End: 07-21-2023 ambulatory Anirudh Ball Other [employer] Other Start: 07-21-2023 Nursing evaluation o f patient and report Anirudh Wang [facility] Start: 07-14-2023 End: 07-14-2023 ambulatory Anirudh Wang Other [employer] Other Start: 07-14-2023 Telephone encounter Anirudh WING [facility] Start: 05-19-2023 End: 05-19-2023 ambulatory Tricia Weiss Other [employer] Other Start: 05-19-2023 Nursing evaluation o f patient and report Tricia Weiss [facility] Start: 05-19-2023 Telephone encounter Anirudh WING [facility] Start: 05-16-2023 End: 05-16-2023 ambulatory Imad Asaad Other [employer] Other Start: 05-16-2023 Telephone encounter Imad Asaad [facility] Start: 05-09-2023 End: 05-09-2023 ambulatory Imad Asaad Other [employer] Other Start: 05-09-2023 Telephone encounter Imad Asaad [facility] [employer] Start: 05-02-2023 End: 05-02-2023 ambulatory Anirudh Wang Other [employer] Other Start: 05-02-2023 Telephone encounter Anirudh WING [facility] Start: 04-17-2023 End: 04-17-2023 ambulatory Anirudh Wang Other [employer] Other Start: 04-17-2023 Office outpatient visit 25 minutes Anirudh Wang [facility] Start: 04-14-2023 End: 04-14-2023 ambulatory Imad Asaad Other [employer] Other Start: 04-14-2023 Office outpatient visit 25 minutes Imad Asaad [facility] Start: 04-10-2023 Telephone encounter Anirudh [facility] Start: 04-10-2023 End: 04-10-2023 ambulatory Anirudh Wang [facility] [employer] Other Start: 04-04-2023 End: 04-04-2023 ambulatory Anirudh Wang Other [employer] Other Start: 04-04-2023 Telephone encounter Anirudh Wang [facility] Start: 04-01-2023 End: 04-01-2023 ambulatory Anirudh Wang Other [employer] Other Start: 04-01-2023 Telephone encounter Anirudh Wang [facility] Start: 03-27-2023 End: 03-27-2023 ambulatory Anirudh Wang Facility:[facility] Start: 03-27-2023 End: 03-27-2023 ambulatory DO Anirudh Wang Work Phone: [facility] Work Phone: Start: 03-27-2023 End: 03-27-2023 Patient encounter procedure DO Anirudh Ball Work Phone: [facility] Work Phone: Start: 02-18-2023 End: 02-18-2023 ambulatory Anirudh Wang Other [employer] Other Start: 02-18-2023 Telephone encounter Anirudh WING [facility] Start: 02-10-2023 End: 02-10-2023 ambulatory Anirudh Wang Other [employer] Other Start: 02-10-2023 Nursing evaluation o f patient and report Anirudh Wang [facility] Start: 02-05-2023 End: 02-05-2023 ambulatory Anirudh Wang Other [employer] Other Start: 02-05-2023 Office outpatient visit 15 minutes Anirudh Wang [facility] Start: 02-04-2023 End: 02-04-2023 ambulatory WAI DAUGHERTY Facility:[facility] Start: 01-31-2023 End: 01-31-2023 ambulatory Imad Asaad Other [employer] Other Start: 01-31-2023 Telephone encounter Imad Asaad [facility] Start: 01-23-2023 End: 01-23-2023 ambulatory Imad Asaad Facility:[facility] Start: 01-23-2023 End: 01-23-2023 Admission to same day surgery center DO Anirudh Wang Work Phone: [facility] Work Phone: Start: 01-07-2023 End: 01-08-2023 ambulatory IMAD ASAAD Facility:[facility] Start: 01-06-2023 End: 01-06-2023 ambulatory Imad Asaad Other [employer] Other Start: 01-06-2023 Office outpatient ne w 45 minutes Imad Asaad [facility] Start: 01-02-2023 End: 01-02-2023 ambulatory Anirudh Wang Other [employer] Other Start: 01-02-2023 Nursing evaluation o f patient and report Anirudh Wang [facility] Start: 12-25-2022 Telephone encounter Anirudh WING [facility] Start: 12-25-2022 End: 12-26-[address] ANIRUDH WANG [facility] [employer] Other Start: 12-18-2022 End: 12-18-2022 ambulatory Anirudh Wang Other [employer] Other Start: 12-18-2022 Office outpatient visit 25 minutes Anirudh Wang [facility] Start: 12-13-2022 End: 12-13-2022 ambulatory Anirudh Wang Other [employer] Other Start: 12-13-2022 Telephone encounter Anirudh WING [facility] Start: 12-04-2022 End: 12-04-2022 ambulatory Anirudh Wang Other [employer] Other Start: 12-04-2022 Telephone encounter Anirudh WING [facility] Start: 12-02-2022 End: 12-03-[address] ANIRUDH WANG [facility] [employer] Other Start: 12-02-2022 Nursing evaluation o f patient and report Anirudh Wang [facility] Start: 12-02-2022 Office outpatient visit 15 minutes Anirudh Wang [facility] Start: 11-25-2022 End: 11-26-2022 ambulatory Bijan VELAZQUEZ Facility:[facility] Start: 11-25-2022 End: 11-25-2022 Patient encounter procedure Bijan VELAZQUEZ [facility] Start: 11-18-2022 End: 11-19-[address] BIJAN VELAZQUEZ . Facility: Start: 10-31-2022 End: 10-31-2022 ambulatory Anirudh Wang Other [employer] Other Start: 10-31-2022 Nursing evaluation o f patient and report Anirudh Wang [facility] Start: 10-08-2022 End: 10-08-2022 ambulatory Anirudh Wang Other [employer] Other Start: 10-08-2022 Telephone encounter Anirudh WING [facility] Start: 09-30-2022 End: 09-30-2022 ambulatory Anirudh Wang Other [employer] Other Start: 09-30-2022 Nursing evaluation o f patient and report Anirudh Wang [facility] Start: 09-27-2022 Encounter for genera l adult medical examination without abnormal findings DR ANIRUDH WANG [facility] Start: 09-27-2022 End: 09-27-2022 ambulatory Anirudh Wang Other [employer] Other Start: 09-27-2022 Telephone encounter Anirudh WING [facility] Start: 09-20-2022 Patient encounter procedure Anirudh Wang [facility] Start: 09-20-2022 End: 09-21-[address] ANIRUDH WANG [facility] Other Start: 09-20-2022 End: 09-21-2022 Encounter for general adult medical examination without abnormal findings DR ANIRUDH WANG Facility: Start: 09-17-2021 Adult health examination Anirudh Wang Other [facility] [employer] Other Procedures Date Procedure Procedure Detail Performing Clinician Start: 01-23-2023 Esophagogastroduodenoscopy DO Anirudh wilkerson Work Phone: Start: 11-18-[address] BIJAN VELAZUQEZ . Comment on above: Performed By: #### CBC #### [facility] [address] [place] [address] Dr. Haley Mays Start: 01-01-2017 Hyperlipidemia screening Anirudh Wang Other Start: 09-08-2013 Laparoscopic cholecystostomy Bijan ENGLAND Start: 09-08-2011 Colonoscopy Bijan VELAZQUEZ Start: 09-08-2011 Esophagogastroduodenoscopy gastric outlet reduction Bijan VELAZQUEZ Start: 09-08-1974 Repair of left inguinal hernia Bijan GRAYSON Depression screening Jona Wang Other Depression screening Jona Wang Other History of operative procedure on knee Bijan VELAZQUEZ Vasectomy Bijan VELAZQUEZ Plan of Treatment Date Care Activity Detail Author Start: 01-23-2023 [facility] Patient Education Colon polyps [facility] Work Phone: Immunizations Immunization Date Immunization Notes Care Provider Fa cility NEGATED: Highlighted row has not occurred!11-20-2020 influenza virus vaccine, unspecified formulation Bijan VELAZQUEZ [facility] NEGATED: Highlighted row has not occurred!11-22-2019 influenza virus vaccine, live, attenuated, for intranasal use Bijan VELAZQUEZ [facility] Payers Date Payer Category Payer Self-pay 1961 Medicare [id number] 1948 Unknown [id number] 3 1948 Unknown [id number] 3 1948 Unknown [id number] 3 1948 Unknown [id number] 3 1948 Unknown [id number] 3 1948 Unknown [id number] 3 1948 Unknown [id number] 7 1948 Unknown [id number] 7 Private Health Insurance [employer] Mcr PFFS N on Pt [id number] Unknown [id number] 1 Unknown [id number] 1 Unknown [id number] 1 Social History Date Type Detail Facility Sex Assigned At [facility]: 11-25-2022 End: 09-19-2023 Tobacco smoking status Never smoked tobacco (finding) [facility] Tobacco smoking status Never [facility] Start: 1950 Sex Assigned At Male F [facility] Medical Equipment Procedure Code Equipment Code Equipment Origin al Text Equipment Identifier Dates Repair, hernia, inguinal, with mesh Abdominal hernia surgical mesh, synthetic polymer, non-bioabsorbable [id number] FDA Start: 04-10-2023 Goals Date Patient Goal Desired Activity /State Functional Status Date Assessment Result Facility 11-25-2022 Functional Status N/A [facility] Clinical Notes 09-20-2022 to 11-28-2023 Note Date & Type Note Facility 11-28-2023 Evaluation note Diagnosis Onset Date Pernicious anemia acute Chronic venous insufficiency of lower extremity acute Primary hypertension acute Stage 3a chronic kidney disease (CKD) [facility] Work Phone: 1(443) 191-461101-15-2024 Evaluation note* Encounter Date Diagnosis Assessment Notes Treatment Notes Treatment Clinical Notes Sep, Pernicious anemia (ICD-10 - D51.0) [employer] Other 01-12-2024 Evaluation note* Encounter Date Diagnosis Assessment Notes Treatment Notes Treatment Clinical Notes Sep, Primary hypertension (ICD-10 - I10) This patient is instructed to consume a healthy, low-fat, low-salt diet. They are also encouraged to continue exercise to achieve/maintain a normal BMI. Sep, Other osteoporosis without current pathological fracture (ICD-10 - M81.8) Healthy diet, weight bearing exercises. Ca and Vit D supplements. Discussed treatment options, hesitant to start medication. Sep, KEVIN (generalized anxiety disorder) (ICD-10 - F41.1) Healthy diet and exercise. Continue Lexapro. Continue Ativan: 1/2 1-2 x daily. - helping calm his anxiety and improve his sleep quality Sep, Pernicious anemia (ICD-10 - D51.0) [employer] Other 12-13-2023 Evaluation note* Encounter Date Diagnosis Assessment Notes Treatment Notes Treatment Clinical Notes Aug, Pernicious anemia (ICD-10 - D51.0) Aug, Primary hypertension (ICD-10 - I10) This patient is instructed to consume a healthy, low-fat, low-salt diet. They are also encouraged to continue exercise to achieve/maintain a normal BMI. Patient is instructed on home BP measurements: - rest for 5 minutes w/o talking- positioned w/ feet on floor and arm supported- average best 2/3 readings w/ goal < 135/85 Aug, KEVIN (generalized anxiety disorder) (ICD-10 - F41.1) Healthy diet and exercise. Relaxation stressed. Initiate SSRI and Lorazepam - caution w/ use of Lorazepam as it may cause sedation Recheck in 1 mo [employer] Other 11-20-2023 Evaluation note* Encounter Date Diagnosis Assessment Notes Treatment Notes Treatment Clinical Notes Jul, Primary hypertension (ICD-10 - I10) [employer] Other 11-13-2023 Evaluation note* Encounter Date Diagnosis Assessment Notes Treatment Notes Treatment Clinical Notes Jul, Pernicious anemia (ICD-10 - D51.0) [employer] Other 09-11-2023 Evaluation note* Encounter Date Diagnosis Assessment Notes Treatment Notes Treatment Clinical Notes May, Pernicious anemia (ICD-10 - D51.0) [employer] Other 09-08-2023 Evaluation note* Encounter Date Diagnosis Assessment Notes Treatment Notes Treatment Clinical Notes May, Other osteoporosis without current pathological fracture (ICD-10 - M81.8) [employer] Other 08-10-2023 Evaluation note* Encounter Date Diagnosis Assessment Notes Treatment Notes Treatment Clinical Notes Apr, Primary hypertension (ICD-10 - I10) This patient is instructed to consume a healthy, low-fat, low-salt diet. They are also encouraged to continue exercise to achieve/maintain a normal BMI. Patient is instructed on home BP measurements: - rest for 5 minutes w/o talking- positioned w/ feet on floor and arm supported- average best 2/3 readings w/ goal < 135-85 Restart Benazepril - recheck BMP in 2 wks to check for hyperkalemia Apr, Stage 3a chronic kid anabel disease (ICD-10 - N18.31) The patient is instructed on adequate control of hypertension and diabetes, if appropriate. They are also educated on the associated risks of NSAIDs and PPI use with kidney disease. They were instructed on adequate fluid balance and to avoid dehydration. Apr, Celiac disease (ICD- 10 - K90.0) Continue gluten free diet. DEXA scan ordered f/u GI Apr, Pernicious anemia (I CD-10 - D51.0) Monthly B12 injections Patient meets criteria for vitamin B12 deficiency/insuffic iency. We discussed the etiology of this deficiency and, which is related to his Celiac diseae. Discussed natural sources that can be obtained in the diet including meat, poultry, fish etc. Encouraged vitamin B12 supplement by monthly IM injections Apr, Pure hypercholestero lemia (ICD-10 - E78.00) Instructed on diet and exercise with continued statin therapy.Discussed the beneficial effects of lowering cholesterol in reducing the risk for cerebrovascular and cardiovascular disease. Apr, Chronic idiopathic constipation (ICD-10 - K59.04) Diet instructions, push fluids, increase fiber Amitiza as needed Discussed constipation and IBS-C today. Discussed increasing fiber in the diet routinely and how increased fluid intake will improve stools/bowel movements as well. Discussed stool softeners for maintenance as well as Metamucil. [employer] Other 08-07-2023 Evaluation note* Encounter Date Diagnosis Assessment Notes Treatment Notes Treatment Clinical Notes Apr, Celiac disease (ICD-10 - K90.0) Patient advised to avoid gluten Apr, Encounter for screening for osteoporosis (ICD-10 - Z13.820) [employer] Other 06-05-2023 Evaluation note* Encounter Date Diagnosis Assessment Notes Treatment Notes Treatment Clinical Notes Feb, Pernicious anemia (ICD-10 - D51.0) [employer] Other 05-31-2023 Evaluation note* Encounter Date Diagnosis Assessment Notes Treatment Notes Treatment Clinical Notes January, Pernicious anemia (ICD-10 - D51.0) Continue monthly B12 injections January, Celiac disease (ICD-10 - K90.0) Continue Gluten free diet f/u GI January, Chronic idiopathic constipation (ICD-10 - K59.04) Miralax and Amitiza didn't help. Using Supp every 72 hours as needed. Push fluids [employer] Other 05-26-2023 Evaluation note* Encounter Date Diagnosis Assessment Notes Treatment Notes Treatment Clinical Notes January, Celiac disease (ICD-10 - K90.0) [employer] Other 05-01-2023 Evaluation note* Encounter Date Diagnosis Assessment Notes Treatment Notes Treatment Clinical Notes January, Celiac disease (ICD-10 - K90.0) Will proceed with EGD/Colonoscopy to confirm Celiac disease. January, Constipation, unspecified constipation type (ICD-10 - K59.00) Patient states that he has around 1 bowel movement every 4 days since november 2022. Does use a laxative as needed. Recomended patient to use OTC Miralax to avoid constipation.Titr ate dosage as needed. January, Bloating (ICD-10 - R14.0) Gas has improved since starting Celiac diet. January, Change in bowel habits (ICD-10 - R19.4) January, Iron deficiency anemia (ICD-10 - D50.9) [employer] Other 04-27-2023 Evaluation note* Encounter Date Diagnosis Assessment Notes Treatment Notes Treatment Clinical Notes Dec, Pernicious anemia (ICD-10 - D51.0) [employer] Other 04-12-2023 Evaluation note* Encounter Date Diagnosis Assessment Notes Treatment Notes Treatment Clinical Notes Dec, Essential hypertension (ICD-10 - I10) This patient is instructed to consume a healthy, low-fat, low-salt diet. They are also encouraged to continue exercise to achieve/maintain a normal BMI. Dec, Left lower quadrant abdominal pain (ICD-10 - R10.32) Increase fiber, increase fluids CT to r/o obstructing mass Dec, Unexplained weight loss (ICD-10 - R63.4) Increase calories, increase dietary protein r/o thyroid disease and diabetes Dec, Pernicious anemia (ICD-10 - D51.0) Continue B12 injections Dec, Celiac disease (ICD-10 - K90.0) Continue Gluten free diet Dec, Constipation, unspecified constipation type (ICD-10 - K59.00) Increase fluids, fiber and schedule CT scan to r/o obstructing mass [employer] Other 03-27-2023 Evaluation note* Encounter Date Diagnosis Assessment Notes Treatment Notes Treatment Clinical Notes Nov, Pernicious anemia (ICD-10 - D51.0) [employer] Other 03-27-2023 Evaluation note* Encounter Date Diagnosis Assessment Notes Treatment Notes Treatment Clinical Notes Nov, Celiac disease (ICD-10 - K90.0) Recheck IgA levels. Gluten free diet Nov, Anemia, unspecified type (ICD-10 - D64.9) Hold Fe for now. Recheck CBC and B12,FA,Fe Nov, Fecal smearing (ICD-10 - R15.1) Decrease dietary fruits Start Metamucil Nov, Stage 3a chronic kidney disease (ICD-10 - N18.31) The patient is instructed on adequate control of hypertension and diabetes, if appropriate. They are also educated on the associated risks of NSAIDs and PPI use with kidney disease. They were instructed on adequate fluid balance and to avoid dehydration. [employer] Other 03-20-2023 Hospital Discharge instructions Patient Education 11/25/2022 08:04:45 Benign Prostatic Hyperplasia Benign Prostatic Hyperplasia Benign prostatic hyperplasia (BPH) is an enlarged prostate gland that is caused by the normal agingprocess and not by cancer. The prostate is a walnut-sized gland that is involved in the production of semen. It is located in front of the rectum and below the bladder. The bladder stores urine and the urethra is the tube that carries the urine out of the body. The prostate may get bigger as a man gets older. An enlarged prostate can press on the urethra. This can make it harder to pass urine. The build-up of urine in the bladder can cause infection. Back pressure and infection may progress to bladder damage and kidney (renal) failure. What are the causes? This condition is part of a normal aging process. However, not all men develop problems from this condition. If the prostate enlarges away from the urethra, urine flow will not be blocked. If it enlarges toward the urethra and compresses it, there will be problems passing urine. What increases the risk? This condition is more likely to develop in men over the age of 50 years. What are the signs or symptoms? Symptoms of this condition include: Getting up often during the night to urinate. Needing to urinate frequently during the day. Difficulty starting urine flow. Decrease in size and strength of your urine stream. Leaking (dribbling) after urinating. Inability to pass urine. This needs immediate treatment. Inability to completely empty your bladder. Pain when you pass urine. This is more common if there is also an infection. Urinary tract infection (UTI). How is this diagnosed? This condition is diagnosed based on your medical history, a physical exam, and your symptoms. Tests will also be done, such as: A post-void bladder scan. This measures any amount of urine that may remain in your bladder after you finish urinating. A digital rectal exam. In a rectal exam, your health care provider checks your prostate by putting a lubricated, gloved finger into your rectum to feel the back of your prostate gland. This exam detects the size of your gland and any abnormal lumps or growths. An exam of your urine (urinalysis). A prostate specific antigen (PSA) screening. This is a blood test used to screen for prostate cancer. An ultrasound. This test uses sound waves to electronically produce a picture of your prostate gland. Your health care provider may refer you to a specialist in kidney and prostate diseases (urologist). How is this treated? Once symptoms begin, your health care provider will monitor your condition (active surveillance or watchful waiting). Treatment for this condition will depend on the severity of your condition. Treatment may include: Observation and yearly exams. This may be the only treatment needed if your condition and symptoms are mild. Medicines to relieve your symptoms, including: ?Medicines to shrink the prostate. ?Medicines to relax the muscle of the prostate. Surgery in severe cases. Surgery may include: ?Prostatectomy. In this procedure, the prostate tissue is removed completely through an open incision or with a laparoscope or robotics. ?Transurethral resection of the prostate (TURP). In this procedure, a tool is inserted through the opening at the tip of the penis (urethra). It is used to cut away tissue of the inner core of the prostate. The pieces are removed through the same opening of the penis. This removes the blockage. ?Transurethral incision (TUIP). In this procedure, small cuts are made in the prostate. This lessens the prostate's pressure on the urethra. ?Transurethral microwave thermotherapy (TUMT). This procedure uses microwaves to create heat. The heat destroys and removes a small amount of prostate tissue. ?Transurethral needle ablation (TUNA). This procedure uses radio frequencies to destroy and remove a small amount of prostate tissue. ?Interstitial laser coagulation (ILC). This procedure uses a laser to destroy and remove a small amount of prostate tissue. ?Transurethral electrovaporization (TUVP). This procedure uses electrodes to destroy and remove a small amount of prostate tissue. ?Prostatic urethral lift. This procedure inserts an implant to push the lobes of the prostate away from the urethra. Follow these instructions at home: Take aiil-rjm-ripdqlq and prescription medicines only as told by your health care provider. Monitor your symptoms for any changes. Contact your health care provider with any changes. Avoid drinking large amounts of liquid before going to bed or out in public. Avoid or reduce how much caffeine or alcohol you drink. Give yourself time when you urinate. Keep all follow-up visits as told by your health care provider. This is important. Contact a health care provider if: You have unexplained back pain. Your symptoms do not get better with treatment. You develop side effects from the medicine you are taking. Your urine becomes very dark or has a bad smell. Your lower abdomen becomes distended and you have trouble passing your urine. Get help right away if: You have a fever or chills. You suddenly cannot urinate. You feel lightheaded, or very dizzy, or you faint. There are large amounts of blood or clots in the urine. Your urinary problems become hard to manage. You develop moderate to severe low back or flank pain. The flank is the side of your body between the ribs and the hip. These symptoms may represent a serious problem that is an emergency. Do not wait to see if the symptoms will go away. Get medical help right away. Call your local emergency services (911 in the [place] Do not drive yourself to the hospital. Summary Benign prostatic hyperplasia (BPH) is an enlarged prostate that is caused by the normal aging process and not by cancer. An enlarged prostate can press on the urethra. This can make it hard to pass urine. This condition is part of a normal aging process and is more likely to develop in men over the age of 50 years. Get help right away if you suddenly cannot urinate. This information is not intended to replace advice given to you by your health care provider. Make sure you discuss any questions you have with your health care provider. Document Released: 08/25/2006 Document Revised: 07/20/2019 Document Reviewed: 09/29/2017 [employer] Patient Education 2020 [employer]. Follow Up Care 11/23/2021 08:51:05 With:ANDREEA DIXON, Bijan Ruby, URL Address: [facility] [address] , [place] [address]- When: Unknown [facility] 02-23-2023 Evaluation note* Encounter Date Diagnosis Assessment Notes Treatment Notes Treatment Clinical Notes Oct, Pernicious anemia (ICD-10 - D51.0) [employer] Other 01-23-2023 Evaluation note* Encounter Date Diagnosis Assessment Notes Treatment Notes Treatment Clinical Notes Sep, Pernicious anemia (ICD-10 - D51.0) [place] [employer] Other 01-20-2023 Evaluation note* Encounter Date Diagnosis Assessment Notes Treatment Notes Treatment Clinical Notes Sep, Anemia, unspecified type (ICD-10 - D64.9) [employer] Other 01-13-2023 Evaluation note* Encounter Date Diagnosis Assessment Notes Treatment Notes Treatment Clinical Notes Sep, Essential hypertensi on (ICD-10 - I10) This patient is instructed to consume a healthy, low-fat, low-salt diet. They are also encouraged to continue exercise to achieve/maintain a normal BMI. Sep, Pure hypercholestero lemia (ICD-10 - E78.00) Diet and exercise with continued statin therapy. 13 Virgil, 2023 Stage 3a chronic kid anabel disease (CKD) (ICD-10 - N18.31) The patient is instructed on adequate control of hypertension and diabetes, if appropriate. They are also educated on the associated risks of NSAIDs and PPI use with kidney disease. They were instructed on adequate fluid balance and to avoid dehydration. Sep, Pernicious anemia (I CD-10 - D51.0) Sep, Multiple pulmonary nodules determined by computed tomography of lung (ICD-10 - R91.8) CT surveillance over 2 years revealed no significant change and determined to be benign. Sep, Sensorineural hearin g loss (SNHL), unspecified laterality (ICD-10 - H90.5) f/u Audiology, avoid use of Qtips. Sep, Celiac disease (ICD- 10 - K90.0) Gluten free diet, monitor for vitamin deficiencies. Patient noncompliant w/ diet. Sep, Medicare annual well ness visit, subsequent (ICD-10 - Z00.00) Personalized health advice was given to the beneficiary including a written plan for screenings discussed and provided. Advanced care planning reviewed and/or information given as requested. Additional counseling was provided here today in regards to, [ ]. The above visit was performed by [ ], under direct supervision of [ ]. Document reviewed and amended by provider signed below. Sep, Annual physical exam (ICD-10 - Z00.00) Sep, High risk medication use (ICD-10 - Z79.899) [employer] Other Evaluation + Plan note Future Appointments Appointment Date:11/28/2023 08:30:00 AM Scheduled Provider:Bijan VELAZQUEZ MD Location:[facility] Appointment Type:URO Office Visit Diagnostic Tests Pending * PSA Total 11/25/22 [facility] evaluation noteNo InformationNort [employer] Other Evaluation noteNo assessment information available [facility] Work Phone: History general Narrative - Reported* Type Description Date Medical History 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 Medical History Body mass index (BMI) of 25.0 to 29.9 Medical History Chest pain Medical History Essential hypertension Medical History Malaise Medical History Fatigue Medical History Pure hypercholesterolemia Medical History Depression screening Medical History Celiac disease Medical History Right-sided chest wall pain Medical History Gout Medical History Benign prostatic hyp erplasia with lower urinary tract symptoms Medical History Nocturia Medical History Pernicious anemia Medical History Acute constipation Medical History Left inguinal hernia Medical History Multiple pulmonary n odules determined by computed tomography of lung Medical History Hypertensive chronic kidney disease with stage 1 through stage 4 chronic kidney disease, or unspecified chronic kidney disease Medical History Stage 3a chronic kidney disease (CKD) Medical History Sensorineural hearin g loss (SNHL), unspecified laterality Medical History Tinnitus, bilateral Medical History Biliary dyskinesia Medical History Retinal vein occlusi on of left eye, unspecified retinal vein Surgical History cholecystectomy 2013 Surgical History EGD 09/2018 Surgical History COLONOSCOPY 09/2018 Surgical History CATARACT ECTRACTION, BILATERAL Hospitalization History SEE ABOVE RecordSled Other History general Narrative - Reported* Type Description Date Medical History 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 Medical History Body mass index (BMI) of 25.0 to 29.9 Medical History Chest pain Medical History Essential hypertension Medical History [place] Medical History Fatigue Medical History Pure hypercholesterolemia Medical History Depression screening Medical History Celiac disease Medical History Right-sided chest wall pain Medical History Gout Medical History Benign prostatic hyp erplasia with lower urinary tract symptoms Medical History Nocturia Medical History Pernicious anemia Medical History Acute constipation Medical History Left inguinal hernia Medical History Multiple pulmonary n odules determined by computed tomography of lung Medical History Hypertensive chronic kidney disease with stage 1 through stage 4 chronic kidney disease, or unspecified chronic kidney disease Medical History Stage 3a chronic kidney disease (CKD) Medical History Sensorineural hearin g loss (SNHL), unspecified laterality Medical History Tinnitus, bilateral Medical History Biliary dyskinesia Medical History Retinal vein occlusi on of left eye, unspecified retinal vein Surgical History cholecystectomy 2013 Surgical History EGD 09/2018 Surgical History COLONOSCOPY 09/2018 Surgical History CATARACT ECTRACTION, BILATERAL Surgical History EGD w/ bx 01/2023 Surgical History Colonoscopy w/ polypectomy 01/25 23 Hospitalization History SEE ABOVE RecordSled Other History general Narrative - ReportedNortKalibrr Other [facility] general Narrative - Reported* Type Description Date Medical History 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 Medical History Body mass index (BMI) of 25.0 to 29.9 Medical History Chest pain Medical History Essential hypertension Medical History [place] Medical History Fatigue Medical History Pure hypercholesterolemia Medical History Depression screening Medical History Celiac disease Medical History Right-sided chest wall pain Medical History Gout Medical History Benign prostatic hyp erplasia with lower urinary tract symptoms Medical History Nocturia Medical History Pernicious anemia Medical History Acute constipation Medical History Left inguinal hernia Medical History Multiple pulmonary n odules determined by computed tomography of lung Medical History Hypertensive chronic kidney disease with stage 1 through stage 4 chronic kidney disease, or unspecified chronic kidney disease Medical History Stage 3a chronic kidney disease (CKD) Medical History Sensorineural hearin g loss (SNHL), unspecified laterality Medical History Tinnitus, bilateral Medical History Biliary dyskinesia Medical History Retinal vein occlusi on of left eye, unspecified retinal vein Surgical History cholecystectomy 2013 Surgical History EGD 09/2018 Surgical History COLONOSCOPY 09/2018 Surgical History CATARACT ECTRACTION, BILATERAL Surgical History EGD w/ bx 01/2023 Surgical History Colonoscopy w/ polypectomy 01/25 23 Surgical History Left inguinal hernia 04/2023 Hospitalization History SEE ABOVE RecordSled Other [employer] general Narrative - Reported* Type Description Date Medical History 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 Medical History Body mass index (BMI) of 25.0 to 29.9 Medical History Chest pain Medical History Essential hypertension Medical History [place] Medical History Fatigue Medical History Pure hypercholesterolemia Medical History Depression screening Medical History Celiac disease Medical History Right-sided chest wall pain Medical History Gout Medical History Benign prostatic hyp erplasia with lower urinary tract symptoms Medical History Nocturia Medical History Pernicious anemia Medical History Acute constipation Medical History Left inguinal hernia Medical History Multiple pulmonary n odules determined by computed tomography of lung Medical History Hypertensive chronic kidney disease with stage 1 through stage 4 chronic kidney disease, or unspecified chronic kidney disease Medical History Stage 3a chronic kidney disease (CKD) Medical History Sensorineural hearin g loss (SNHL), unspecified laterality Medical History Tinnitus, bilateral Medical History Biliary dyskinesia Medical History Retinal vein occlusi on of left eye, unspecified retinal vein Medical History Osteoporosis Surgical History cholecystectomy 2013 Surgical History EGD 09/2018 Surgical History COLONOSCOPY 09/2018 Surgical History CATARACT ECTRACTION, BILATERAL Surgical History EGD w/ bx 01/2023 Surgical History Colonoscopy w/ polypectomy 01/25 23 Surgical History Left inguinal hernia 04/2023 Hospitalization History SEE ABOVE RecordSled Other Hospital course Narrative No data available for this section [facility] progress note No data available for this section [facility] reason for referral (narrative)* Reason *Waiting for appt Referral to confirm Celiac disease Diagnosis 1 Celiac disease (K90. 0) Referral Organization [facility] Referring Provider First Name Anirudh Referring Provider Last Name [place] Referring Provider Specialty Internal Me dicine Referred Organization [facility] Gastroenterolo gy Referred Provider Zeeshan Joe Referred Address [address],[id number] Referred Provider Specialty Gastroentero logy Referral Priority Routine General Notes Sanam Guido 11:00:10 AM >RECEIVED TODAY, SENT P2P RecordSled Other Summary Purpose Family History Relationship Condition Age at Onset Recorded Date/T jj father Carcinoma of peritoneum Unknown Not Specified Hypertension Unknown Relationship Condition Age at Onset Recorded Date/T jj father Carcinoma of peritoneum Unknown Not Specified Hypertension Unknown father Heart disease Unknown Relationship Condition Age at Onset Recorded Date/T jj father Carcinoma of peritoneum Unknown Heart disease Unknown Not Specified Hypertension Unknown Advance Directives Advance Directive Response Recorded Date/ Time Advance Directives January 15 3 9:48am Advance Directive Response Recorded Date/ Time Advance Directives January 15 3 8:48am Chief Complaint and Reason for Visit Chief Complaint Celiac Disease, Cons tipation, Change in Bowel Habi Inguinal Hernia Chief Complaint High Bp 1 Month Follow Up B-12 SHOT Chief Complaint 1 Month Follow Up B-12 SHOT swelling, increased weight B-12 SHOT Reason for Visit Pernicious anemia Chronic venous insufficiency of lower extremity Primary hypertension Stage 3a chronic kidney disease (CKD) Additional Source Comments REASON FOR VISIT (unrecogniz ed section and content) WELLNESS MBLab ResultsB-12 S hot mbmedicationB-12 ShotB-12 ShotDigestive System IssuesCeliac resultsReferralMultiple IssuesBloating/GasIncreased PainB-12 ShotCONSULT FOR CELIAC DISEASESENDING LABS1 week follow upB-12 ShotmessageLab resultsNo InformationPATIENT IS HERE FOR FOLLOW UP TO DISCUSS CELIAC DISEASE6 month Follow up -b12Lab ResultsGASTRO CONSULTNo InformationB-12 ShotRefillDEXA [id number] QuestionHigh BP1 month Follow up1 month Follow upB-12 SHOT Patient Care team informatio n (unrecognized section and content) Team Status: Active Member Role Status Dates Anirudh Wang , Primary Care Provider Active Team Status: Inactive Member Role Status Dates Hector Pretty MD Attending Provider Active Anirudh Wang , Primary Care Provider Active Team Status: Inactive Member Role Status Dates Anirudh Wang DO Primary Care Provider Active Ryan Cornell MD Attending Provider Active Team Status: Inactive Member Role Status Dates Anirudh Wang , Attending Provider Active Sta rt: August 20, 2023 End: August 20, 2023 Team Status: Inactive Member Role Status Dates Anirudh Wang , Attending Provider Active Sta rt: September 19, 2023 End: September 19, 2023 Team Status: Inactive Member Role Status Dates Anirudh Wang , Primary Care Provide r, Attending Provider Active Start: October 24, 2023 End: October 24, 2023 Team Status: Inactive Member Role Status Dates Anirudh Wang , Primary Care Provide r, Attending Provider Active Start: November 05, 2023 End: November 05, 2023 Team Status: Inactive Member Role Status Dates Anirudh Wang , DO Primary Care Provide r, Attending Provider Active Start: November 28, 2023 End: November 28, 2023 (unrecognized sect ion and content) No Status Records FoundNo Status Records FoundNo Status Records Found INFORMATION SOURCE (unrecogn ized section and content) DATE CREATED AUTHOR 02/14/2023 [facility] DATE CREATED AUTHOR AUTHOR'S ORGANIZ ATION 04/21/2023 [facility] DATE CREATED AUTHOR AUTHOR'S ORGANIZ ATION 10/21/2023 [facility] [place] Goals (unrecognized section and content) Goals may be documented in a n alternate section FOR RECORDS PERTAINING TO PATIENTS WHO ARE OR HAVE BEEN ENROLLED IN A CHEMICAL DEPENDENCY/SUBSTANCEABUSE PROGRAM, SOME INFORMATION MAY BE OMITTED. This clinical summary was aggregated from multiple sources. Caution should be exercised in using it in the provision of clinical care. This summary normalizes information from multiple sources, and as a consequence, information in this document may materially change the coding, format and clinical context of patient data. In addition, data may be omitted in some cases. CLINICAL DECISIONS SHOULD BE BASED ON THE PRIMARY CLINICAL RECORDS. [facility] [employer] [facility]. provides no warranty or guarantee of the accuracy or completeness of information in this document.
[2023-12-09 10:41] LABS: Prostate Specific Antigen Dx 1.96 ng/mL (<=4.00)
== END 2023-12-09 08:34 | disposition home or self-care (01) ==
LOC: LAB 08:36
PROVIDERS: PCP Internal Medicine; Visit Provider Urology
DX: N40.1 Benign prostatic hyperplasia with lower urinary tract symptoms (principal)
CPT/HCPCS: 36415; 84153

== ENCOUNTER 2023-12-10 09:22 | Outpatient (OUT) | payer MEDICARE, SELFPAY ==
--- OUTSIDE RECORDS SUMMARY | 2023-12-10 09:36 | XMS_ITS | CCD ---
Author Organization [facility] Care Team Providers Care Obstetric Anaesthetist Name Role Phone Anirudh Wang Unavailable ANIRUDH WANG Primary Care Physician Asaad, Imad Unavailable ANDREEA ., DR STEVENSON [...] Care Unavailable MD Hector Pretty Attending Provider [phone] DO Anirudh Wang Primary Care Provider MD Ryan Cornell Attending Provider Asaadolfo, Imadolfo [...] Facility (20 sources) Doxycycline Drug Allergy Unknown [employer] Other (4 sources) patient allergy list reviewed by nurse or physicia Propensity to adverse reactions Comment:Done [employer] Other (1 source) Doxycycline Drug Allergy Unknown [employer] Other Medications Current Medications Medication Drug Class(es) [...] fracture] Chronic Other aftercare (2 sources) Other emt intermediate (current) drug therapy; 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 Performed By: #### K #### [address] Basic Metabolic Panelon 03-09 Anion gap [Moles/Vol] 9.5 mmol/L Normal 6.0-15.0 [facility] Comment on above: Performed By: #### C BC, BMP #### [address] Calcium [Mass/Vol] 9.2 mg/dL Normal 8.6-10.3 [facility] Comment on above: Result Comment: PERF ORMED BY: [place] [address] PATHOLOGIST FIELD ASSISTANT ANGELICA SUN M.D. Performed By: #### C BC, BMP #### [address] Chloride [Moles/Vol] 107 mmol/L Normal 98-107 [facility] Comment on above: Performed By: #### C BC, BMP #### [place] [address] [place] CO2 [Moles/Vol] 28.4 mmol/L Normal 21.0-31.0 [facility] Comment on above: Performed By: #### C BC, BMP #### [facility] [address] [place] [address] [place] Creatinine [Mass/Vol] 1.47 mg/dL High 0.70-1.30 [facility] Comment on above: Performed By: #### C BC, BMP #### [facility] [address] [place] [address] [place] GFR/1.73 sq M.predicted MDRD (S/P/Bld) [Vol rate/Area] 49.742 mL/min/{1.73_m2} Normal [facility] Comment on above: Performed By: #### C BC, BMP #### [facility] [address] Glucose [Mass/Vol] 90 mg/dL Normal 70-100 [facility] Comment on above: Result Comment: [place] Glucose Reference Range is dependent on time and content of last meal. Glucose of more than 200 mg/dL in a nonstressed, ambulatory subject supports the diagnosis of Diabetes Mellitus. ADA recommended reference range Performed By: #### C GARRETT, BMP #### [facility] [address] Potassium [Moles/Vol] 5.9 mmol/L High 3.5-5.1 [facility] Comment on above: Performed By: #### C GARRETT, BMP #### [facility] [address] Sodium [Moles/Vol] 139 mmol/L Normal 136-145 [facility] Comment on above: Performed By: #### C GARRETT, BMP #### [facility] [address] Urea nitrogen [Mass/Vol] 27 mg/dL High 7-25 [facility] Comment on above: Performed By: #### C GARRETT, BMP #### [facility] [address] [place] [address] [place] Basophils Auto (Bld) [#/Vol] Ordered By: Ryan Cornell on 03-27-2023 Basophils (Bld) [#/Vol] 0.0 10*3/uL 0.0-0.2 [facility] Basophils/100 WBC Auto (Bld) Ordered By: Ryan Cornell on 03-27-2023 Basophils/100 WBC (Bld) 0.6 % . [facility] Calcium [Mass/volume] in Ser um or PlasmaOrdered By: Ryan Cornell on 03-27-2023 Calcium [Mass/Vol] 9.2 mg/dL 8.6-10.3 [facility] Carbon dioxide, total [Moles /volume] in Serum or PlasmaOrdered By: Ryan Cornell on 03-27-2023 CO2 [Moles/Vol] 28.4 mmol/L 21.0-31.0 [facility] Chloride [Moles/volume] in S arturo or PlasmaOrdered By: Ryan Cornell on 03-27-2023 Chloride [Moles/Vol] 107 mmol/L 98-107 [facility] Complete Blood Count Auto Di ffon 03-27-2023 Basophils (Bld) [#/Vol] 0.0 10*3/uL Normal 0.0-0.2 [facility] Comment on above: Result Comment: PERF ORMED BY: [place] [address] PATHOLOGIST FIELD ASSISTANT ANGELICA SUN M.D. Performed By: #### C BC, BMP #### [facility] [address] [place] [address] Basophils/100 WBC (Bld) 0.6 % Normal . [facility] Comment on above: Performed By: #### C BC, BMP #### [facility] [address] [place] [address] [place] Eosinophils (Bld) [#/Vol] 0.2 10*3/uL Normal 0.0-0.45 [facility] Comment on above: Performed By: #### C BC, BMP #### [address] Eosinophils/100 WBC (Bld) 3.2 % Normal . [facility] Comment on above: Performed By: #### C BC, BMP #### [address] Erythrocyte distribution width (RBC) [Ratio] 13.3 % Normal 12.0-14.8 [facility] Comment on above: Performed By: #### C BC, BMP #### [address] Hematocrit (Bld) [Volume fraction] 36.5 % Low 38.8-50.0 [facility] Comment on above: Performed By: #### C BC, BMP #### [facility] [address] Hemoglobin (Bld) [Mass/Vol] 12.3 g/dL Low 13.0-17.0 [facility] Comment on above: Performed By: #### C BC, BMP #### [facility] [address] Lymphocytes (Bld) [#/Vol] 1.6 10*3/uL Normal 1.00-4.8 [facility] Comment on above: Performed By: #### C BC, BMP #### [facility] [address] Lymphocytes/100 WBC (Bld) 24.3 % Normal . [facility] Comment on above: Performed By: #### C BC, BMP #### [facility] [address] MCH (RBC) [Entitic mass] 31.8 pg Normal 27.5-35.2 [facility] Comment on above: Performed By: #### C BC, BMP #### [facility] [address] MCV (RBC) [Entitic vol] 94.2 fL Normal 83.5-101 [facility] Comment on above: Performed By: #### C BC, BMP #### [facility] [address] Mean Corpuscular HGB Conc 33.7 g/dL Normal 32.5-35.6 [facility] Comment on above: Performed By: #### C BC, BMP #### [facility] [address] [place] [address] [place] Monocytes (Bld) [#/Vol] 0.7 10*3/uL Normal 0.0-0.8 [facility] Comment on above: Performed By: #### C BC, BMP #### [facility] [address] [place] [address] [place] Monocytes/100 WBC (Bld) 11.1 % Normal . [facility] Comment on above: Performed By: #### C BC, BMP #### [facility] [address] [place] [id number] [place] Neutrophils (Bld) [#/Vol] 3.9 10*3/uL Normal 1.8-7.7 [facility] Comment on above: Performed By: #### C GARRETT, BMP #### [facility] [address] [place] [id number] [place] Neutrophils/100 WBC (Bld) 60.8 % Normal . [facility] Comment on above: Performed By: #### C GARRETT, BMP #### [facility] [address] [place] [address] [place] NRBC% 0.1 /100{WBC} Normal 0-0.5 [facility] Comment on above: Performed By: #### C GARRETT, BMP #### [facility] [address] Platelet mean volume (Bld) [Entitic vol] 7.9 fL Normal 6.6-10.1 [facility] Comment on above: Performed By: #### C GARRETT, BMP #### [facility] [address] [place] [address] [place] Platelets (Bld) [#/Vol] 235 10*3/uL Normal 150-450 [facility] Comment on above: Performed By: #### C GARRETT, BMP #### [facility] [address] [place] [id number] [place] RBC (Bld) [#/Vol] 3.87 10*6/uL Low 3.90-5.60 [facility] Comment on above: Performed By: #### C GARRETT, BMP #### [facility] [address] [place] [id number] [place] WBC (Bld) [#/Vol] 6.5 10*3/uL Normal 4.1-10.5 [facility] Comment on above: Performed By: #### C GARRETT, BMP #### [facility] [address] [place] [id number] [place] Creatinine [Mass/volume] in Serum or PlasmaOrdered By: Ryan Cornell on 03-27-2023 Creatinine [Mass/Vol] 1.47 mg/dL 0.70-1.30 [facility] ECG 12 lead ECGon 03-27-[address]23 [address] [place] [address] Electrocardiograph Report Signed Patient: Marcelino Escobar MR#: [id number] 48 : 1950 Acct:[id number] Age/Sex: 72 / M ADM Date: 03/27/23 Loc: Room: Type: [facility] Attending Dr: Ryan Cornell MD Ordering Provider: [...] Signed By Duglas Hernandez MD 0807 Normal [facility] Eosinophils Auto (Bld) [#/Vo l]Ordered By: Ryan Cornell on 03-27-2023 Eosinophils (Bld) [#/Vol] 0.2 10*3/uL 0.0-0.45 [facility] Eosinophils/100 WBC Auto (Bl d)Ordered By: Ryan Cornell on 03-27-2023 Eosinophils/100 WBC (Bld) 3.2 % . [facility] Erythrocyte distribution wid th Auto (RBC) [Ratio]Ordered By: Ryan Cornell on 03-27-2023 Erythrocyte distribution width (RBC) [Ratio] 13.3 % 12.0-14.8 [facility] Glucose [Mass/volume] in Ser um or PlasmaOrdered By: Ryan Cornell on 03-27-2023 Glucose [Mass/Vol] 90 mg/dL 70-100 [facility] Comment on above: ADA recommended refe rence rangeRandom Glucose Reference Range is dependent on time and content of last meal. Glucose of more than 200 mg/dL in a nonstressed, ambulatory subject supports the diagnosis of Diabetes Mellitus. Hematocrit Auto (Bld) [Volum e fraction]Ordered By: Ryan Cornell on 03-27-2023 Hematocrit (Bld) [Volume fraction] 36.5 % 38.8-50.0 [facility] Hemoglobin [Mass/volume] in BloodOrdered By: Ryan Cornell on 03-27-2023 Hemoglobin (Bld) [Mass/Vol] 12.3 g/dL 13.0-17.0 [facility] Leukocytes [#/volume] correc denis for nucleated erythrocytes in Blood by Automated counOrdered By: Ryan Cornell on 03-27-2023 WBC corrected for nucl RBC Auto (Bld) [#/Vol] 6.5 10*3/uL 4.1-10.5 [facility] Lymphocytes Auto (Bld) [#/Vo l]Ordered By: Ryan Cornell on 03-27-2023 Lymphocytes (Bld) [#/Vol] 1.6 10*3/uL 1.00-4.8 [facility] Lymphocytes/100 WBC Auto (Bl d)Ordered By: Ryan Cornell on 03-27-2023 Lymphocytes/100 WBC (Bld) 24.3 % . [facility] MCH Auto (RBC) [Entitic mass ]Ordered By: Ryan Cornell on 03-27-2023 MCH (RBC) [Entitic mass] 31.8 pg 27.5-35.2 [facility] MCHC Auto (RBC) [Mass/Vol]Or dered By: Ryan Cornell on 03-27-2023 MCHC (RBC) [Mass/Vol] 33.7 g/dL 32.5-35.6 [facility] MCV Auto (RBC) [Entitic vol] Ordered By: Ryan Cornell on 03-27-2023 MCV (RBC) [Entitic vol] 94.2 fL 83.5-101 [facility] Monocytes Auto (Bld) [#/Vol] Ordered By: Ryan Cornell on 03-27-2023 Monocytes (Bld) [#/Vol] 0.7 10*3/uL 0.0-0.8 [facility] Monocytes/100 WBC Auto (Bld) Ordered By: Ryan Cornell on 03-27-2023 Monocytes/100 WBC (Bld) 11.1 % . [facility] Neutrophils Auto (Bld) [#/Vo l]Ordered By: Ryan Cornell on 03-27-2023 Neutrophils (Bld) [#/Vol] 3.9 10*3/uL 1.8-7.7 [facility] Neutrophils/100 WBC Auto (Bl d)Ordered By: Ryan Cornell on 03-27-2023 Neutrophils/100 WBC (Bld) 60.8 % . [facility] No Panel InformationOrdered By: Ryan Cornell on 03-27-2023 Estimated GFR (CKD-EPI) 49.742 mL/Min [facility] Creatinine Clearance (Chem N/A [facility] Nucleated erythrocytes [Pres ence] in Blood by Automated countOrdered By: Ryan Cornell on 03-27-2023 Nucleated RBC Auto Ql (Bld) 0.1 /100{WBC} 0-0.5 [facility] Platelet mean volume Auto (B ld) [Entitic vol]Ordered By: Ryan Cornell on 03-27-2023 Platelet mean volume (Bld) [Entitic vol] 7.9 fL 6.6-10.1 [facility] Platelets Auto (Bld) [#/Vol] Ordered By: Ryan Cornell on 03-27-2023 Platelets (Bld) [#/Vol] 235 10*3/uL 150-450 [facility] Potassium [Moles/volume] in Serum or PlasmaOrdered By: Ryan Cornell on 03-27-2023 Potassium [Moles/Vol] 5.9 mmol/L 3.5-5.1 [facility] RBC Auto (Bld) [#/Vol]Ordere d By: Ryan Cornell on 03-27-2023 RBC (Bld) [#/Vol] 3.87 10*6/uL 3.90-5.60 [facility] Serum or plasma anion gap de terminationOrdered By: Ryan Cornell on 03-27-2023 Anion gap [Moles/Vol] 9.5 mmol/L 6.0-15.0 [facility] Sodium [Moles/volume] in Ser um or PlasmaOrdered By: Ryan Cornell on 03-27-2023 Sodium [Moles/Vol] 139 mmol/L 136-145 [facility] Urea nitrogen [Mass/volume] in Serum or PlasmaOrdered By: Ryan Cornell on 03-27-2023 Urea nitrogen [Mass/Vol] 27 mg/dL 7-25 [facility] WBC Auto (Bld) [#/Vol]Ordere d By: Ryan Cornell on 03-27-2023 WBC (Bld) [#/Vol] 6.5 10*3/uL 4.1-10.5 [facility] CBC AUTO DIFFon 02-04-2023 BASO # 0.0 103/ul Normal 0.0-0.1 [facility] Comment on above: Performed By: #### C BC #### [facility] [address] [place] [address] Dr. Haley Mays Basophils/100 WBC (Bld) 0.4 % Normal 0.2-2.0 [facility] Comment on above: Performed By: #### C BC #### [facility] [address] [place] [address] Dr. Haely Mays EO # 0.0 103/ul Normal 0.0-0.7 [facility] Comment on above: Performed By: #### C BC #### [facility] [address] [place] [address] [address] Haley Mays Eosinophils/100 WBC (Bld) 0.5 % Critically low 0.9-7.0 [facility] Comment on above: Performed By: #### C BC #### [facility] [address] [place] [address] Dr. Haley Mays Erythrocyte distribution width (RBC) [Ratio] 12.3 % Normal 11.0-15.0 [facility] Comment on above: Performed By: #### C BC #### [facility] [address] [place] [address] Dr. Haley Mays Hematocrit (Bld) [Volume fraction] 33.2 % Critically low 42.0-54.0 [facility] Comment on above: Performed By: #### C BC #### [facility] [address] [place] [address] Dr. Haley aMys Hemoglobin (Bld) [Mass/Vol] 11.6 g/dL Critically low 14.0-18.0 [facility] Comment on above: Performed By: #### C BC #### [facility] [address] [place] [address] Dr. Haley Mays IG # 0.05 10e3/ul Critically high 0.00-0.03 [facility] Comment on above: Performed By: #### C BC #### [facility] [address] [place] [address] Dr. Haley Mays IG % 0.9 % Critically high 0.0-0.5 [facility] Comment on above: Performed By: #### C BC #### [facility] [address] [place] [address] Dr. Haley Mays LYMPH # 1.3 103/ul Normal 1.2-3.8 [facility] Comment on above: Performed By: #### C BC #### [facility] [address] [place] [address] Dr. Haley Mays Lymphocytes/100 WBC (Bld) 21.9 % Normal 20.5-60.0 [facility] Comment on above: Performed By: #### C BC #### [facility] [address] [place] [address] Dr. Haley Mays MANUAL DIFF REQ NO Normal [facility] Comment on above: Performed By: #### C BC #### [facility] [address] [place] [address] Dr. Haley Mays MCH (RBC) [Entitic mass] 32.0 pg Normal 25.9-34.0 [facility] Comment on above: Performed By: #### C BC #### [facility] [address] [place] [address] [address] Haley Mays MCHC (RBC) [Mass/Vol] 34.9 g/dL Normal 29.9-35.2 [facility] Comment on above: Performed By: #### C BC #### [facility] [address] [place] [address] [address] Haley Mays MCV (RBC) [Entitic vol] 91.5 fL Normal 80.0-94.0 [facility] Comment on above: Performed By: #### C BC #### [facility] [address] [place] [address] [address] Haley Mays MONO # 0.7 103/ul Normal 0.3-0.8 [facility] Comment on above: Performed By: #### C BC #### [facility] [address] [place] [address] Dr. Haley Mays Monocytes/100 WBC (Bld) 11.6 % Normal 1.7-12.0 [facility] Comment on above: Performed By: #### C BC #### [facility] [address] [place] [address] Dr. Haley Mays NEUT # 3.7 103/ul Normal 1.4-6.5 [facility] Comment on above: Performed By: #### C BC #### [facility] [address] [place] [address] Dr. Haley Mays Neutrophils/100 WBC (Bld) 64.7 % Normal 43.0-75.0 [facility] Comment on above: Performed By: #### C BC #### [facility] [address] [place] [address] Dr. Haley Mays Platelet mean volume (Bld) [Entitic vol] 9.1 fL Critically low 9.5-13.5 [facility] Comment on above: Performed By: #### C BC #### [facility] [address] [place] [address] Dr. Haley Mays PLT 281 103/ul Normal 150-[address] [facility] Comment on above: Performed By: #### C BC #### [facility] [address] [place] [address] [address] Haley Mays RBC 3.63 106/ul Critically low 4.70-6.10 [facility] Comment on above: Performed By: #### C BC #### [facility] [address] [place] [address] [address] Haley Mays WBC 5.7 103/ul Normal 4.0-11.0 [facility] Comment on above: Performed By: #### C BC #### [facility] [address] [place] [address] [address] Haley Mays PROF CHEM 8 (BAS METB)on Anion gap [Moles/Vol] 15.2 mmol/L Normal [facility] Comment on above: Performed By: #### B MP #### [facility] [address] [place] [address] Dr. Haley Mays Calcium [Mass/Vol] 8.8 mg/dL Normal 8.5-10.1 [facility] Comment on above: Performed By: #### B MP #### [facility] [address] [place] [address] [address] Haley Mays Chloride [Moles/Vol] 97 mmol/L Critically low 98-107 [facility] Comment on above: Performed By: #### B MP #### [facility] [address] [place] [address] Dr. Haley Mays CO2 [Moles/Vol] 23.5 mmol/L Normal 21.0-32.0 [facility] Comment on above: Performed By: #### B MP #### [facility] [address] [place] [address] Dr. Haley Mays Creatinine [Mass/Vol] 1.44 mg/dL Critically high 0.70-1.30 [facility] Comment on above: Performed By: #### B MP #### [facility] [address] [place] [address] Dr. Haley Mays EGFR-AF [place] 58 mL/min/1.73m2 Critically low >=[address] [facility] Comment on above: Performed By: #### B MP #### [facility] [address] [place] [address] [address] Haley Mays EGFR-NON AF [place] 48 mL/min/1.73m2 Critically low >=60 [facility] Comment on above: Performed By: #### B MP #### [facility] [address] [place] [address] [address] Haley Mays Glucose [Mass/Vol] 129 mg/dL Critically high 74-106 [facility] Comment on above: Performed By: #### B MP #### [facility] [address] [place] [address] [address] Haley Mays Potassium [Moles/Vol] 4.7 mmol/L Normal 3.5-5.1 [facility] Comment on above: Performed By: #### B MP #### [facility] [address] [place] [address] [address] Haley Mays Sodium [Moles/Vol] 131 mmol/L Critically low 136-145 [facility] Comment on above: Performed By: #### B MP #### [facility] [address] [place] [address] [address] Haley Mays Urea nitrogen [Mass/Vol] 16.0 mg/dL Normal 7.0-18.0 [facility] Comment on above: Performed By: #### B MP #### [facility] [address] [place] [address] [address] Haley Mays Urea nitrogen/Creatinine [Mass ratio] 11.1 mg/mg Normal [facility] Comment on above: Performed By: #### B MP #### [facility] [address] [place] [address] [address] Haley Mays XR KUB 1 VIEWon 02-04-2023 XR KUB 1 VIEW EXAMINATION: XR KUB 1 VIEW HISTORY: Pain COMPARISON: No relevant comparison available. FINDINGS: BOWEL GAS PATTERN: No abnormal dilation or deviation. CALCIFICATIONS: None significant. OTHER: Mild bilateral hip osteoarthropathy. Degenerative spondylosis. No abnormal gaseous collections. IMPRESSION: Nonobstructive bowel gas pattern Electronically authenticated by: RUSTY SILVA Date: 2023-02-04 13:57 Normal [facility] 01-23-2023 L - -------- Specimen: [id number] Received: 01/24/23 Status: TONY Rosen Num: [id number] Spec Type: Surgical Subm Dr: Hector Pretty MD Tissues: A Stomach - Biopsy/Polyp (DUOD BX) B Colon Biopsy (RNDM COL BX) C Colon Biopsy (DESC COL POLYP) Procedures: HE/6, Gross/Micro L4/3 -------- Age/ Patient Sex Location Account Attending Physician -------- Marcelino Escobar 72/M [id number] Hector Pretty MD -------- SPEC NUM: [id number] RECD: 01/24/23 STATUS: TONY ROSEN NUM: [id number] REGINALDO: 01/23/23- SUBM DR: Hector Pretty MD ENTERED: 01/24/23 [facility] DR: SPEC TYPE: Surgical DEPT: S ENTERED BY: [id number] RECV BY: [id number] ORDERED: HE/6, Gross/Micro L4/3 ORDERED: HE/6, Gross/Micro [...] celiac, rule out microscopic colitis -------- Specimen: [id number] Received: 01/24/23 Status: TONY [facility] Num: [id number] Spec Type: Surgical Subm Dr: Hector Pretty MD Tissues: A Stomach - Biopsy/Polyp (DUOD BX) B Colon Biopsy (RNDM COL BX) C Colon Biopsy (DESC COL POLYP) Procedures: HE/6, Gross/Micro L4/3 -------- Patient: Marcelino Escobar [id number] (Continued) -------- Specimen: [id number] Received: 01/24/23 (Continued) Signed (signature on file) Pop Perez MD 01/27/23 1005 -------- Specimen: [id number] Received: 01/24/23 Status: TONY Rosen Num: [id number] Spec Type: Surgical Subm Dr: Hector Pretty MD Tissues: A Stomach - Biopsy/Polyp (DUOD BX) B Colon Biopsy (RNDM COL BX) C Colon Biopsy (DESC COL POLYP) Procedures: [place]/Janeth Hairston/Dianna L4/3 -------- Patient: Marcelino Escobar [id number] (Continued) -------- Specimen: [id number] Received: 01/24/23 (Continued) Gross Description A. Received [...] microscopic examination confirms the diagnosis. CPT Codes 90032?3 -------- -------- Specimen: [id number] Received: 01/24/23 Status: TONY Rosen Num: [id number] Spec Type: Surgical Subm Dr: Hector Pretty MD Tissues: A Stomach - Biopsy/Polyp (DUOD BX) B Colon Biopsy (RNDM COL BX) C Colon Biopsy (DESC COL POLYP) Procedures: HE/6, Gross/Micro L4/3 -------- Patient: Marcelino Escobar [id number] (Continued) -------- Signed (signature on file) Pop Perez MD 01/27/23 1005 Normal [facility] CBC AUTO DIFFon 01-07-2023 BASO # 0.0 103/ul Normal 0.0-0.1 [facility] Comment on above: Performed By: #### C BC #### [facility] [address] [place] [address] Dr. Haley Mays Basophils/100 WBC (Bld) 0.5 % Normal 0.2-2.0 [facility] Comment on above: Performed By: #### C BC #### [facility] [address] [place] [address] Dr. Haley Mays EO # 0.1 103/ul Normal 0.0-0.7 [facility] Comment on above: Performed By: #### C BC #### [facility] [address] [place] [address] Dr. Haley Mays Eosinophils/100 WBC (Bld) 0.8 % Critically low 0.9-7.0 [facility] Comment on above: Performed By: #### C BC #### [facility] [address] [place] [place] [address] Dr. Haley Mays Erythrocyte distribution width (RBC) [Ratio] 12.6 % Normal 11.0-15.0 [facility] Comment on above: Performed By: #### C BC #### [facility] [address] [address] [address] Haley Mays Hematocrit (Bld) [Volume fraction] 37.7 % Critically low 42.0-54.0 [facility] Comment on above: Performed By: #### C BC #### [facility] [address] [address] [address] Haley Mays Hemoglobin (Bld) [Mass/Vol] 12.3 g/dL Critically low 14.0-18.0 [facility] Comment on above: Performed By: #### C BC #### [facility] [address] [place] [address] Dr. Haley Mays IG # 0.05 10e3/ul Critically high 0.00-0.03 [facility] Comment on above: Performed By: #### C BC #### [facility] [address] [place] [address] Dr. Haley Mays IG % 0.8 % Critically high 0.0-0.5 [facility] Comment on above: Performed By: #### C BC #### [facility] [address] [place] [address] Dr. Haley Mays LYMPH # 1.5 103/ul Normal 1.2-3.8 [facility] Comment on above: Performed By: #### C BC #### [facility] [address] [place] [address] Dr. Haley Mays Lymphocytes/100 WBC (Bld) 25.0 % Normal 20.5-60.0 [facility] Comment on above: Performed By: #### C BC #### [facility] [address] [place] [address] Dr. Haley Mays MANUAL DIFF REQ NO Normal [facility] Comment on above: Performed By: #### C BC #### [facility] [address] [place] [address] Dr. Haley Mays MCH (RBC) [Entitic mass] 31.1 pg Normal 25.9-34.0 [facility] Comment on above: Performed By: #### C BC #### [facility] [address] [address] [address] Haley Mays MCHC (RBC) [Mass/Vol] 32.6 g/dL Normal 29.9-35.2 [facility] Comment on above: Performed By: #### C BC #### [facility] [address] [place] [address] Dr. Haley Mays MCV (RBC) [Entitic vol] 95.4 fL Critically high 80.0-94 .0 [facility] Comment on above: Performed By: #### C BC #### [facility] [address] [place] [address] Dr. Haley Mays MONO # 0.7 103/ul Normal 0.3-0.8 [facility] Comment on above: Performed By: #### C BC #### [facility] [address] [place] [address] Dr. Haley Mays Monocytes/100 WBC (Bld) 11.3 % Normal 1.7-12.0 [facility] Comment on above: Performed By: #### C BC #### [facility] [address] [place] [address] Dr. Haley Mays NEUT # 3.8 103/ul Normal 1.4-6.5 [facility] Comment on above: Performed By: #### C BC #### [facility] [address] [place] [address] Dr. Haley Mays Neutrophils/100 WBC (Bld) 61.6 % Normal 43.0-75.0 [facility] Comment on above: Performed By: #### C BC #### [facility] [address] [place] [address] Dr. Haley Mays Platelet mean volume (Bld) [Entitic vol] 9.2 fL Critically low 9.5-13.5 [facility] Comment on above: Performed By: #### C BC #### [facility] [address] [place] [address] Dr. Haley Mays PLT 300 103/ul Normal 150-[address] [facility] Comment on above: Performed By: #### C BC #### [facility] [address] [place], [place] [address] Dr. Haley Mays RBC 3.95 106/ul Critically low 4.70-6.10 [facility] Comment on above: Performed By: #### C BC #### [facility] [address] [place], [place] [address] Dr. Haley Mays WBC 6.1 103/ul Normal 4.0-11.0 [facility] Comment on above: Performed By: #### C BC #### [facility] [address] [place], [place] [address] ABD/PELV W CONon [...] COURTNEY GILL Date: 2022-12-25 08:48 Normal [facility] Complete Blood Count and Dif kodak 12-03-2022 Anisocytosis Ql (Bld) [facility] [employer] Other Basophilic stippling LM Ql (Bld) [facility] [employer] Other RBC morphology finding Nom (Bld) [facility] [employer] Other IMMUNOGLOBULIN IGA QUANTITIA VEon 12-03-2022 Immunoglobulin A, Qn, Serum 321 mg/dL Normal 61-437 [facility] Comment on above: Performed By: #### C BC #### [facility] [address] [place] [address] Dr. Haley Mays Lab Reportson 12-03-2022 Lab Reports [id number] Normal [facility] TISSUE TRANSGLUTAMINASE IGGo n 12-03-2022 t-Transglutaminase (tTG) IgG 11 U/mL Critically high 0-5 [facility] Comment on above: Result Comment: Nega tive 0 - 5 Weak Positive 6 - 9 Positive >9 Performed By: #### T RNSIGG #### [facility] [address] [address] [address] Haley Mays TRANSGLUTAMINASE IGAon 12-03 t-Transglutaminase (tTG) IgA >100 Critically high 0-3 [facility] Comment on above: Result Comment: Nega tive 0 - 3 Weak Positive 4 - 10 Positive >10 . Tissue Transglutaminase (tTG) has been identified as the endomysial antigen. Studies have demonstr- ated that endomysial IgA antibodies have over 99% specificity for gluten sensitive enteropathy. Performed By: #### C BC #### [facility] [address] [place] [address] Dr. Haley Mays tTG IgA/IgG Transglutaminase on 12-03-2022 tTG IgA/IgG Transglutaminase [facility] [employer] Other Basic Metabolic Panelon 11-07 Anion gap [Moles/Vol] 14.2 mmol/L Normal No rt [employer] Other Comment on above: Performed By: #### B MP #### [facility] [address] [address] [address] Haley Mays Calcium [Mass/Vol] 8.4038155 mg/dL 8.5-10 .1 mg/dL [facility] [employer] Other Chloride [Moles/Vol] 110 mmol/L Critically high 98-107 [facility] [employer] Other Comment on above: Performed By: #### B MP #### [facility] [address] [address] [address] Haley Mays CO2 [Moles/Vol] 26.99054254 mmol/L 21.0-3 2.0 mmol/L [employer] Other Creatinine [Mass/Vol] 1.48289580 mg/dL Critically high 0.70-1.30 mg/dL [place] [employer] Other Potassium [Moles/Vol] 5.76061186 mmol/L Critically hig h 3.5-5.1 mmol/L [employer] Other Urea nitrogen [Mass/Vol] 25.6936544 mg/dL Critically high 7.0-18.0 mg/dL [employer] Other Urea nitrogen/Creatinine [Mass ratio] 18.8 mg/mg Normal [facility] [employer] Other Comment on above: Performed By: #### B MP #### [facility] [address] [address] [address] Haley Mays Basic Metabolic Panel see note [facility] [employer] Other Basic Metabolic Panel 145 mmol/L 136-14 5 mmol/L [employer] Other Basic Metabolic Panel 106 mg/dL 74-106 mg/dL [employer] Other Basic Metabolic Panel 53 mL/min/1.73m2 Critically low >=60 mL/min/1.73 m2 [employer] Other Basic Metabolic Panel >60 mL/min/1.73m2 > =60 mL/min/1.73 m2 [employer] Other CBC AUTO DIFFon 12-02-2022 BASO # 0.0 103/ul Normal 0.0-0.1 [facility] Comment on above: Performed By: #### C BC #### [facility] [address] [place] [address] Dr. Haley Mays Basophils/100 WBC (Bld) 0.3 % Normal 0.2-2.0 [facility] Comment on above: Performed By: #### C BC #### [facility] [address] [place] [address] Dr. Haley Mays EO # 0.1 103/ul Normal 0.0-0.7 [facility] Comment on above: Performed By: #### C BC #### [facility] [address] [place] [address] Dr. Haley Mays Eosinophils/100 WBC (Bld) 1.6 % Normal 0.9-7.0 [facility] Comment on above: Performed By: #### C BC #### [facility] [address] [place] [address] Dr. Haley Mays Erythrocyte distribution width (RBC) [Ratio] 12.9 % Normal 11.0-15.0 [facility] Comment on above: Performed By: #### C BC #### [facility] [address] [place] [address] Dr. Haley Mays Hematocrit (Bld) [Volume fraction] 36.7 % Critically low 42.0-54.0 [facility] Comment on above: Performed By: #### C BC #### [facility] [address] [place] [address] Dr. Haley Mays Hemoglobin (Bld) [Mass/Vol] 11.9 g/dL Critically low 14.0-18.0 [facility] Comment on above: Performed By: #### C BC #### [facility] [address] [place] [address] Dr. Haley Mays IG # 0.07 10e3/ul Critically high 0.00-0.03 [facility] Comment on above: Performed By: #### C BC #### [facility] [address] [place] [address] Dr. Haley Mays IG % 1.2 % Critically high 0.0-0.5 [facility] Comment on above: Performed By: #### C BC #### [facility] [address] [place] [address] Dr. Haley Mays LYMPH # 1.4 103/ul Normal 1.2-3.8 [facility] Comment on above: Performed By: #### C BC #### [facility] [address] [place] [address] Dr. Haley Mays Lymphocytes/100 WBC (Bld) 23.4 % Normal 20.5-60.0 [facility] Comment on above: Performed By: #### C BC #### [facility] [address] [place] [address] Dr. Haley Mays MANUAL DIFF REQ NO Normal [facility] Comment on above: Performed By: #### C BC #### [facility] [address] [place] [address] Dr. Haley Mays MCH (RBC) [Entitic mass] 30.7 pg Normal 25.9-34.0 [facility] Comment on above: Performed By: #### C BC #### [facility] [address] [place] [address] Dr. Haley Mays MCHC (RBC) [Mass/Vol] 32.4 g/dL Normal 29.9-35.2 [facility] Comment on above: Performed By: #### C BC #### [facility] [address] [place] [address] Dr. Haley Mays MCV (RBC) [Entitic vol] 94.6 fL Critically high 80.0-94 .0 [facility] Comment on above: Performed By: #### C BC #### [facility] [address] [place] [address] Dr. Haley Mays MONO # 0.7 103/ul Normal 0.3-0.8 [facility] Comment on above: Performed By: #### C BC #### [facility] [address] [address] [address] Haley Mays Monocytes/100 WBC (Bld) 11.5 % Normal 1.7-12.0 [facility] Comment on above: Performed By: #### C BC #### [facility] [address] [address] [address] Haley Mays NEUT # 3.8 103/ul Normal 1.4-6.5 [facility] Comment on above: Performed By: #### C BC #### [facility] [address] [address] [address] Haley Mays Neutrophils/100 WBC (Bld) 62.0 % Normal 43.0-75.0 [facility] Comment on above: Performed By: #### C BC #### [facility] [address] [place] [address] Dr. Haley Mays Platelet mean volume (Bld) [Entitic vol] 9.4 fL Critically low 9.5-13.5 [facility] Comment on above: Performed By: #### C BC #### [facility] [address] [place] [address] Dr. Haley Mays PLT 269 103/ul Normal 150-450 [facility] Comment on above: Performed By: #### C BC #### [facility] [address] [address] [address] Haley Mays RBC 3.88 106/ul Critically low 4.70-6.10 [facility] Comment on above: Performed By: #### C BC #### [facility] [address] [address] [address] Haley Mays WBC 6.1 103/ul Normal 4.0-11.0 [facility] Comment on above: Performed By: #### C BC #### [facility] [address] [place] [address] Dr. Haley Mays FERRITINon 12-02-2022 Ferritin [Mass/Vol] 57.0 ng/mL Normal 26.0-388.0 [facility] Comment on above: Performed By: #### C BC #### [facility] [address] [address] [address] Haley Mays Ferritin [Mass/Vol] 57.4731284 ng/mL 26.0 -388.0 ng/mL [facility] [employer] Other IRON AND TIBCon 12-02-2022 % SATURATION 34.5 % Normal [facility] Comment on above: Performed By: #### C BC #### [facility] [address] [address] [address] Haley Mays Iron [Mass/Vol] 88.0 ug/dL Normal 65.0-175.0 [facility] Comment on above: Performed By: #### C BC #### [facility] [address] [address] [address] Haley Mays TIBC DIRECT 255.0 ug/dL Normal 250.0-450.0 [facility] Comment on above: Performed By: #### C BC #### [facility] [address] [address] [address] Haley Mays Iron [Mass/Vol] 88.6881360 ug/dL 65.0-175 .0 ug/dL [employer] [facility] [employer] Other IRON AND TIBC 255.0 ug/dL 250.0-450.0 ug/dL [employer] Other IRON AND TIBC 34.5 % [employer] Other PROF CHEM 8 (BAS METB)on Calcium [Mass/Vol] 8.7 mg/dL Normal 8.5-10.1 [facility] Comment on above: Performed By: #### B MP #### [facility] [address] [address] [address] Haley Mays CO2 [Moles/Vol] 26.0 mmol/L Normal 21.0-32.0 [facility] Comment on above: Performed By: #### B MP #### [facility] [address] [address] [address] Haley Mays Creatinine [Mass/Vol] 1.33 mg/dL Critically high 0.70-1.30 [facility] Comment on above: Performed By: #### B MP #### [facility] [address] [address] [address] Haley Mays EGFR-AF [place] >60 Normal >=60 [facility] Comment on above: Performed By: #### B MP #### [facility] [address] [address] [address] Haley Mays EGFR-NON AF [place] 53 mL/min/1.73m2 Critically low >=60 [facility] Comment on above: Performed By: #### B MP #### [facility] [address] [address] [address] Haley Mays Glucose [Mass/Vol] 106 mg/dL Normal 74-106 [facility] Comment on above: Performed By: #### B MP #### [facility] [address] [address] [address] Haley Mays Potassium [Moles/Vol] 5.2 mmol/L Critically high 3.5-5.1 [facility] Comment on above: Performed By: #### B MP #### [facility] [address] [place] [address] Dr. Haley Mays Sodium [Moles/Vol] 145 mmol/L Normal 136-145 [facility] Comment on above: Performed By: #### B MP #### [facility] [address] [address] [address] Haley Mays Urea nitrogen [Mass/Vol] 25.0 mg/dL Critically high 7.0-18.0 [facility] Comment on above: Performed By: #### B MP #### [facility] [address] [address] [address] Haley Mays VIT B12 AND FOLATEon 2022 FOLATE 19.60 ng/mL Normal 8.60-58.90 [facility] Comment on above: Performed By: #### C BC #### [facility] [address] [place] [address] Dr. Haley Mays Cobalamin (Vitamin B12) [Mass/Vol] pg/mL Critically high 193.0-986.0 [employer] Other Comment on above: Performed By: #### C BC #### [facility] [address] [place] [address] Dr. Haley Mays VIT B12 AND FOLATE 19.60 ng/mL 8.60-58.9 0 ng/mL [employer] Other [employer] 11-26-2022 Screens [id number] [facility] Ambulatory Visit Summaryon 0 11-25-2022 Ambulatory Visit Summary MARCELINO ESCOBAR :1950 Visit Date:11/25/2022 Ambulatory Visit Instructions Your Diagnosis BPH with urinary obstruction Tests Performed Urnls Dip Stick Auto w/o Microscopy POC 19584 Your Care Team Attending Physician - Bijan [...] Bijan VELAZQUEZ MD Where: [facility] Patient Educationon 11-26-19 23 Patient Education Urology [...] Follow these instructions at home: ? Take [id number] and prescription medicines only as told by [...] [facility] [address], [place] [id number]- Additional Instructions: 1 yr PSA, TERRY Patient Education Benign Prostatic Hyperplasia I, Marlys Ashford, personally scribed for Dr. Velazquez on 11/25/2022 [...] Protein Urine Dipstick: Negative (11/25/22 08:33:00) Specific [place] Urine Dipstick: 1.010 (11/25/22 08:33:00) Urine Appearance Urine Dipstick: Clear (11/25/22 08:33:00) Urine [place] (more content not included)... Normal [facility] Comment on above: Result Comment: Elec tronically Signed By: Bijan VELAZQUEZ MD R\.br\Date and Time Signed: 11/25/22 09:00 EDT\.br\Electronically Co-Signed By: Marlys Ashford\.br\Date and Time Co-Signed: 11/25/22 08:58 EDT CBC AUTO DIFFon 09-20-2022 BASO # 0.0 103/ul Normal 0.0-0.1 [facility] Comment on above: Performed By: #### C BC #### [facility] [address] [address] [address] Haley Mays Basophils/100 WBC (Bld) 0.3 % Normal 0.2-2.0 [facility] Comment on above: Performed By: #### C BC #### [facility] [address] [place] [address] Dr. Haley Mays EO # 0.1 103/ul Normal 0.0-0.7 [facility] Comment on above: Performed By: #### C BC #### [facility] [address] [address] [address] Haley Mays Eosinophils/100 WBC (Bld) 1.4 % Normal 0.9-7.0 [facility] Comment on above: Performed By: #### C BC #### [facility] [address] [place] [address] Dr. Haley Mays Erythrocyte distribution width (RBC) [Ratio] 12.9 % Normal 11.0-15.0 [facility] Comment on above: Performed By: #### C BC #### [facility] [address] [place] [address] Dr. Haley Mays Hematocrit (Bld) [Volume fraction] 39.5 % Critically low 42.0-54.0 [facility] Comment on above: Performed By: #### C BC #### [facility] [address] [place] [address] Dr. Haley Mays Hemoglobin (Bld) [Mass/Vol] 11.9 g/dL Critically low 14.0-18.0 [facility] Comment on above: Performed By: #### C BC #### [facility] [address] [place] [address] Dr. Haley Mays IG # 0.06 10e3/ul Critically high 0.00-0.03 [facility] Comment on above: Performed By: #### C BC #### [facility] [address] [place] [address] Dr. Haley Mays IG % 0.9 % Critically high 0.0-0.5 [facility] Comment on above: Performed By: #### C BC #### [facility] [address] [place] [address] Dr. Haley Mays LYMPH # 1.7 103/ul Normal 1.2-3.8 [facility] Comment on above: Performed By: #### C BC #### [facility] [address] [place] [address] Dr. Haley Mays Lymphocytes/100 WBC (Bld) 25.6 % Normal 20.5-60.0 [facility] Comment on above: Performed By: #### C BC #### [facility] [address] [place] [address] Dr. Haley Mays MANUAL DIFF REQ NO Normal [facility] Comment on above: Performed By: #### C BC #### [facility] [address] [place] [address] Dr. Haley Mays MCH (RBC) [Entitic mass] 31.4 pg Normal 25.9-34.0 [facility] Comment on above: Performed By: #### C BC #### [facility] [address] [place] [address] Dr. Haley Mays MCHC (RBC) [Mass/Vol] 30.1 g/dL Normal 29.9-35.2 [facility] Comment on above: Performed By: #### C BC #### [facility] [address] [place] [address] Dr. Haley Mays MCV (RBC) [Entitic vol] 104.2 fL Critically high 80.0-94 .0 [facility] Comment on above: Performed By: #### C BC #### [facility] [address] [place] [address] Dr. Haley Mays MONO # 0.9 103/ul Critically high 0.3-0.8 [facility] Comment on above: Performed By: #### C BC #### [facility] [address] [place] [address] Dr. Haley Mays Monocytes/100 WBC (Bld) 14.0 % Critically high 1.7-12. 0 [facility] Comment on above: Performed By: #### C BC #### [facility] [address] [place] [address] Dr. aHley Mays NEUT # 3.7 103/ul Normal 1.4-6.[address] [facility] Comment on above: Performed By: #### C BC #### [facility] [address] [place] [address] Dr. Haley Mays Neutrophils/100 WBC (Bld) 57.8 % Normal 43.0-75.[address] [facility] Comment on above: Performed By: #### C BC #### [facility] [address] [address] [address] Haley Mays Platelet mean volume (Bld) [Entitic vol] 9.6 fL Normal 9.5-13.5 [facility] Comment on above: Performed By: #### C BC #### [facility] [address] [address] [address] Haley Mays PLT 291 103/ul Normal 150-450 [facility] Comment on above: Performed By: #### C BC #### [facility] [address] [address] [address] Haley Mays RBC 3.79 106/ul Critically low 4.70-6.10 [facility] Comment on above: Performed By: #### C BC #### [facility] [address] [address] [address] Haley Mays WBC 6.4 103/ul Normal 4.0-11.0 [facility] Comment on above: Performed By: #### C BC #### [facility] [address] [place] [address] Dr. Haley Mays LIPID PROFILEon 09-20-2022 CHOL-HDL RATIO NORM SEE BELOW Normal [facility] [facility] Comment on above: Result Comment: 3.3 - 4.4 LOW RISK 4.4 - 7.1 AVERAGE RISK 7.1 - 11.0 MODERATE RISK >11.0 HIGH RISK Performed By: #### L IPID, BMP, ALT #### [facility] [address] [place] [address] Dr. Haley Mays Cholesterol [Mass/Vol] 123 mg/dL Normal <=200 [facility] Comment on above: Performed By: #### L IPID, BMP, ALT #### [facility] [address] [address] [address] Haley Mays Cholesterol in HDL [Mass/Vol] 26 mg/dL Critically low 40-60 [facility] Comment on above: Performed By: #### L IPID, BMP, ALT #### [facility] [address] [address] [address] Haley Mays Cholesterol in LDL [Mass/Vol] 57.6 mg/dL Normal [facility] Comment on above: Performed By: #### L IPID, BMP, ALT #### [facility] [address] [address] [address] Haley Mays Cholesterol.total/Tri sterol in HDL [Mass ratio] 4.7 {ratio} Normal [facility] Comment on above: Performed By: #### L IPID, BMP, ALT #### [facility] [address] [address] [address] Haley Mays HDL NORMAL > or = 60 mg/dl - LO W CARDIOVASCULAR RISK <40 mg/dl - HIGH CARDIOVASCULAR RISK Normal [facility] Comment on above: Performed By: #### L IPID, BMP, ALT #### [facility] [address] [place] [address] Dr. Haley Mays LDL CALC NORMAL SEE BELOW Normal [facility] Comment on above: Result Comment: <100 mg/dl OPTIMAL 100 - 129 mg/dl NEAR OR ABOVE OPTIMAL 130 - 159 mg/dl BORDERLINE HIGH 160 - 189 mg/dl HIGH >190 mg/dl VERY HIGH Performed By: #### L IPID, BMP, ALT #### [facility] [address] [place] [address] Dr. Haley Mays Triglyceride [Mass/Vol] 197 mg/dL Critically high <=150 [facility] Comment on above: Performed By: #### L IPID, BMP, ALT #### [facility] [address] [address] [address] Haley Mays VLDL CALC 39.4 mg/dL Normal [facility] Comment on above: Performed By: #### L IPID, BMP, ALT #### [facility] [address] [address] [address] Haley Mays PROF CHEM 8 (BAS METB)on Anion gap [Moles/Vol] 13.9 mmol/L Normal [facility] Comment on above: Performed By: #### L IPID, BMP, ALT #### [facility] [address] [address] [address] Haley Mays Calcium [Mass/Vol] 8.6 mg/dL Normal 8.5-10.1 [facility] Comment on above: Performed By: #### L IPID, BMP, ALT #### [facility] [address] [address] [address] Haley Mays Chloride [Moles/Vol] 105 mmol/L Normal 98-107 [facility] Comment on above: Performed By: #### L IPID, BMP, ALT #### [facility] [address] [place] [address] Dr. Haley Mays CO2 [Moles/Vol] 25.1 mmol/L Normal 21.0-32.0 [facility] Comment on above: Performed By: #### L IPID, BMP, ALT #### [facility] [address] [place] [address] Dr. Haley Mays Creatinine [Mass/Vol] 1.47 mg/dL Critically high 0.70-1.30 [facility] Comment on above: Performed By: #### L IPID, BMP, ALT #### [facility] [address] [place] [address] Dr. Haley Mays EGFR-AF [place] 57 mL/min/1.73m2 Critically low >=60 [facility] Comment on above: Performed By: #### L IPID, BMP, ALT #### [facility] [address] [place] [address] Dr. Haley Mays EGFR-NON AF [place] 47 mL/min/1.73m2 Critically low >=60 [facility] Comment on above: Performed By: #### L IPID, BMP, ALT #### [facility] [address] [place] [address] Dr. Haley Mays Glucose [Mass/Vol] 71 mg/dL Critically low 74-106 [facility] Comment on above: Performed By: #### L IPID, BMP, ALT #### [facility] [address] [place] [address] Dr. Haley Mays Potassium [Moles/Vol] 5.0 mmol/L Normal 3.5-5.1 [facility] Comment on above: Performed By: #### L IPID, BMP, ALT #### [facility] [address] [place], [place] [address] Dr. Haley Mays Sodium [Moles/Vol] 139 mmol/L Normal 136-145 [facility] Comment on above: Performed By: #### L IPID, BMP, ALT #### [facility] [address] [address] [address] Haley Mays Urea nitrogen [Mass/Vol] 27.0 mg/dL Critically high 7.0-18.0 [facility] Comment on above: Performed By: #### L IPID, BMP, ALT #### [facility] [address] [address] [address] Haley Mays Urea nitrogen/Creatinine [Mass ratio] 18.4 mg/mg Normal [facility] Comment on above: Performed By: #### L IPID, BMP, ALT #### [facility] [address] [address] [address] Haley Mays [facility] 09-20-2022 ALT [Catalytic activity/Vol] 37 U/L Normal 16-63 [facility] Comment on above: Performed By: #### L IPID, BMP, ALT #### [facility] [address] [address] [address] Haley Mays Vital Signs Date Time Vital Sign Value Performing Clinician Facility 11-05-2023 11:43-0500 Body height 182.88 cm [facility] 11-05-2023 11:43-0500 Body mass index (BMI) [Ratio] 24.5 kg/m2 [facility] 11-05-2023 11:43-0500 Body weight 82.1 kg [facility] 11-05-2023 11:43-0500 Diastolic blood pressure 83 mm[Hg] [facility] 11-05-2023 11:43-0500 Heart rate 87 /min [facility] 11-05-2023 11:43-0500 Respiratory rate 12 /min [facility] 11-05-2023 11:43-0500 Systolic blood pressure 158 mm[Hg] [facility] 09-19-2023 09:30-0500 Body height 182.88 cm Anirudh Ball Other [facility] 09-19-2023 09:30-0500 Body mass index (BMI) [Ratio] 23.62 kg/m2 Anirudh Ball Other [facility] [employer] Other 09-19-2023 09:30-0500 Body weight 79.02 kg Anirudh Ball Other [facility] [employer] Other 09-19-2023 09:30-0500 Body weight 79.01 kg [facility] 09-19-2023 09:30-0500 Diastolic blood pressure 80 mm[Hg] Anirudh Ball Other [facility] 09-19-2023 09:30-0500 Respiratory rate 12 /min Anirudh Ball Other [facility] [employer] Other 09-19-2023 09:30-0500 Systolic blood pressure 135 mm[Hg] Anirudh Ball Other [facility] 08-20-2023 08:45-0500 Body height 182.88 cm Anirudh Ball Other [facility] 08-20-2023 08:45-0500 Body mass index (BMI) [Ratio] 22.62 kg/m2 Anirudh Ball Other [facility] [employer] Other 08-20-2023 08:45-0500 Body weight 75.66 kg Anirudh Ball Other [facility] [employer] Other 08-20-2023 08:45-0500 Body weight 75.65 kg [facility] 08-20-2023 08:45-0500 Diastolic blood pressure 93 mm[Hg] Anirudh Ball Other [facility] 08-20-2023 08:45-0500 Respiratory rate 12 /min Anirudh Ball Other [facility] [employer] Other 12-13-2023 08:45-0500 Systolic blood pressure 177 mm[Hg] Anirudh Ball Other [facility] 04-17-2023 11:00-0400 Body height 182.88 cm Anirudh Ball Other [employer] Other 04-17-2023 11:00-0400 Body mass index (BMI) [Ratio] 22.51 kg/m2 Anirudh Ball Other [employer] Other 04-17-2023 11:00-0400 Body weight 75.3 kg Anirudh Ball Other [employer] Other 04-17-2023 11:00-0400 Diastolic blood pressure 76 mm[Hg] Anirudh Ball Other [employer] Other 04-17-2023 11:00-0400 Systolic blood pressure 144 mm[Hg] Anirudh Ball Other [employer] Other 04-14-2023 14:00-0400 Body height 182.88 cm Imad Asaad Other [employer] Other 04-14-2023 14:00-0400 Body mass index (BMI) [Ratio] 22.38 kg/m2 Imad Asaad Other [employer] Other 04-14-2023 14:00-0400 Body weight 74.84 kg Imad Asaad Other [employer] Other 04-14-2023 14:00-0400 Diastolic blood pressure 85 mm[Hg] Imad Asaad Other [employer] Other 04-14-2023 14:00-0400 Systolic blood pressure 149 mm[Hg] Imad Asaad Other [employer] Other 02-05-2023 09:30-0400 Body height 182.88 cm Anirudh Ball Other [employer] Other 02-05-2023 09:30-0400 Body mass index (BMI) [Ratio] 20.67 kg/m2 Anirudh Ball Other [employer] Other 02-05-2023 09:30-0400 Body weight 69.13 kg Anirudh Ball Other [employer] Other 02-05-2023 09:30-0400 Diastolic blood pressure 74 mm[Hg] Anirudh Ball Other [employer] Other 02-05-2023 09:30-0400 Respiratory rate 12 /min Anirudh Ball Other [employer] Other 02-05-2023 09:30-0400 Systolic blood pressure 129 mm[Hg] Anirudh Ball Other [employer] Other 01-23-2023 16:15-0400 Diastolic blood pressure 88 mm[Hg] DO Anirudh Ball Work Phone: [facility] 01-23-2023 16:15-0400 Heart rate 68 /min DO Anirudh Ball Work Phone: [facility] 01-23-2023 16:15-0400 Respiratory rate 16 /min DO Anirudh Ball Work Phone: [facility] 01-23-2023 16:15-0400 SaO2% (BldA) [Mass fraction] 99 % DO Anirudh Ball Work Phone: [facility] 01-23-2023 16:15-0400 Systolic blood pressure 128 mm[Hg] DO Anirudh Ball Work Phone: [facility] 01-23-2023 13:44-0400 Body height 180.34 cm DO Anirudh Ball Work Phone: [facility] 01-23-2023 13:44-0400 Body weight 69.39 kg DO Anirudh Ball Work Phone: [facility] 01-06-2023 14:15-0400 Body height 182.88 cm Imad Asaad Other [employer] Other 01-06-2023 14:15-0400 Body mass index (BMI) [Ratio] 21.7 kg/m2 Imad Asaad Other [employer] Other 01-06-2023 14:15-0400 Body weight 72.58 kg Imad Asaad Other [employer] Other 01-06-2023 14:15-0400 Diastolic blood pressure 84 mm[Hg] Imad Asaad Other [employer] Other 01-06-2023 14:15-0400 Systolic blood pressure 150 mm[Hg] Imad Asaad Other [employer] Other 12-18-2022 12:30-0400 Body height 182.88 cm Anirudh Ball Other [employer] Other 12-18-2022 12:30-0400 Body mass index (BMI) [Ratio] 21.62 kg/m2 Anirudh Ball Other [employer] Other 12-18-2022 12:30-0400 Body weight 72.3 kg Anirudh Ball Other [employer] Other 12-18-2022 12:30-0400 Diastolic blood pressure 69 mm[Hg] Anirudh Ball Other [employer] Other 12-18-2022 12:30-0400 Respiratory rate 12 /min Anirudh Ball Other [employer] Other 12-18-2022 12:30-0400 Systolic blood pressure 114 mm[Hg] Anirudh Ball Other [employer] Other 12-02-2022 11:00-0400 Body height 182.88 cm Anirudh Ball Other [employer] Other 12-02-2022 11:00-0400 Body mass index (BMI) [Ratio] 21.64 kg/m2 Anirudh Ball Other [employer] Other 12-02-2022 11:00-0400 Body weight 72.39 kg Anirudh Ball Other [employer] Other 12-02-2022 11:00-0400 Diastolic blood pressure 83 mm[Hg] Anirudh Ball Other [employer] Other 12-02-2022 11:00-0400 Respiratory rate 12 /min Anirudh Ball Other [employer] Other 12-02-2022 11:00-0400 Systolic blood pressure 149 mm[Hg] Anirudh Ball Other [employer] Other 11-25-2022 08:34-0400 Blood Pressure Location Bijan VELAZQUEZ [facility] 11-25-2022 08:34-0400 Diastolic blood pressure 74 mm[Hg] Bijan VELAZQUEZ [facility] 11-25-2022 08:34-0400 Heart rate 69 /min Bijan VELAZQUEZ [facility] 11-25-2022 08:34-0400 Respiratory rate 16 /min Bijan VELAZQUEZ [facility] 11-25-2022 08:34-0400 Systolic blood pressure 137 mm[Hg] Bijan VELAZQUEZ [facility] 09-20-2022 09:30-0500 Body height 182.88 cm Anirudh Wenwo Other [employer] Other 09-20-2022 09:30-0500 Body mass index (BMI) [Ratio] 22.46 kg/m2 Anirudh Wenwo Other [employer] Other 09-20-2022 09:30-0500 Body weight 75.12 kg Anirudh Wenwo Other [employer] Other 09-20-2022 09:30-0500 Diastolic blood pressure 62 mm[Hg] Anirudh Wenwo Other [employer] Other 09-20-2022 09:30-0500 Respiratory rate 12 /min Anirudh Wenwo Other [employer] Other 09-20-2022 09:30-0500 Systolic blood pressure 118 mm[Hg] Anirudh Ball Other [employer] Other Encounters Encounter Date Encounter Type Care Provider Facility Start: 12-22-2023 ambulatory Bijan VELAZQUEZ Facili ty:[facility] Start: 11-28-2023 End: 11-28-2023 ambulatory [facility] Work Phone: Start: 11-28-2023 End: 11-28-2023 Patient encounter procedure [facility] Work Phone: Start: 11-05-2023 End: 11-05-2023 [facility] encounter procedure [facility] Work Phone: Start: 10-24-2023 End: 10-24-2023 ambulatory [facility] Work Phone: Start: 10-24-2023 End: 10-24-2023 Patient encounter procedure [facility] Work Phone: Start: 09-22-2023 End: 09-22-2023 ambulatory Anirudh Ball Other [employer] Other Start: 09-22-2023 Nursing evaluation o f patient and report Anirudh Ball [facility] Start: 09-19-2023 End: 09-19-2023 ambulatory Anirudh Ball Other [employer] Other Start: 09-19-2023 Office outpatient visit 15 minutes Anirudh Ball [facility] Start: 09-19-2023 End: 09-19-2023 Patient encounter procedure [facility] Work Phone: Start: 08-20-2023 End: 08-20-2023 ambulatory Anirudh Ball Other [employer] Other Start: 08-20-2023 Office outpatient visit 15 minutes Anirudh Ball [facility] Start: 08-20-2023 End: 08-20-2023 Patient encounter procedure [facility] Work Phone: Start: 08-06-2023 End: 08-06-2023 ambulatory Anirudh Ball Other [employer] Other Start: 08-06-2023 Telephone encounter Anirudh Ball [facility] Start: 07-28-2023 End: 07-28-2023 ambulatory Anirudh Ball Other [employer] Other Start: 07-28-2023 Telephone encounter Anirudh Ball [facility] Start: 07-21-2023 End: 07-21-2023 ambulatory Anirudh Ball Other [employer] Other Start: 07-21-2023 Nursing evaluation o f patient and report Anirudh Wang [facility] Start: 07-14-2023 End: 07-14-2023 ambulatory Anirudh Wang Other [employer] Other Start: 07-14-2023 Telephone encounter Anirudh WING [facility] Start: 05-19-2023 End: 05-19-2023 ambulatory Tricia Weiss Other [employer] Other Start: 05-19-2023 Nursing evaluation o f patient and report Tricia Weiss [facility] Start: 05-19-2023 Telephone encounter Anirudh WING [facility] Start: 05-16-2023 End: 05-16-2023 ambulatory Imad Asaad Other [employer] Other Start: 05-16-2023 Telephone encounter Imad Asaad [facility] Start: 05-09-2023 End: 05-09-2023 ambulatory Imad Asaad Other [employer] Other Start: 05-09-2023 Telephone encounter Imad Asaad [facility] Start: 05-02-2023 End: 05-02-2023 ambulatory Anirudh Wang Other [employer] Other Start: 05-02-2023 Telephone encounter Anirudh WING [facility] Start: 04-17-2023 End: 04-17-2023 ambulatory Anirudh Wang Other [employer] Other Start: 04-17-2023 Office outpatient visit 25 minutes Anirudh Wang [facility] Start: 04-14-2023 End: 04-14-2023 ambulatory Imad Asaad Other [employer] Other Start: 04-14-2023 Office outpatient visit 25 minutes Imad Asaad [facility] Start: 04-10-2023 Telephone encounter Anirudh [facility] Start: 04-10-2023 End: 04-10-2023 ambulatory Anirudh Wang [facility] [employer] Other Start: 04-04-2023 End: 04-04-2023 ambulatory Anirudh Wang Other [employer] Other Start: 04-04-2023 Telephone encounter Anirudh Wang [facility] Start: 04-01-2023 End: 04-01-2023 ambulatory Anirudh Wang Other [employer] Other Start: 04-01-2023 Telephone encounter Anirudh Wang [facility] Start: 03-27-2023 End: 03-27-2023 ambulatory Anirudh Wang Facility:[facility] Start: 03-27-2023 End: 03-27-2023 ambulatory DO Anirudh Wang Work Phone: [facility] Work Phone: Start: 03-27-2023 End: 03-27-2023 Patient encounter procedure DO Anirudh Ball Work Phone: [facility] Work Phone: Start: 02-18-2023 End: 02-18-2023 ambulatory Anirudh Wang Other [employer] Other Start: 02-18-2023 Telephone encounter Anirudh WING [facility] Start: 02-10-2023 End: 02-10-2023 ambulatory Anirudh Wang Other [employer] Other Start: 02-10-2023 Nursing evaluation o f patient and report Anirudh Wang [facility] Start: 02-05-2023 End: 02-05-2023 ambulatory Anirudh Wang Other [employer] Other Start: 02-05-2023 Office outpatient visit 15 minutes Anirudh Wang [facility] Start: 02-04-2023 End: 02-04-2023 ambulatory WAI DAUGHERTY Facility:[facility] Start: 01-31-2023 End: 01-31-2023 ambulatory Imad Asaad Other [employer] Other Start: 01-31-2023 Telephone encounter Imad Asaad [facility] Start: 01-23-2023 End: 01-23-2023 ambulatory Imad Asaad Facility:[facility] Start: 01-23-2023 End: 01-23-2023 Admission to same day surgery center DO Anirudh Wang Work Phone: [facility] Work Phone: Start: 01-07-2023 End: 01-08-2023 ambulatory IMAD ASAAD Facility:[facility] Start: 01-06-2023 End: 01-06-2023 ambulatory Imad Asaad Other [employer] Other Start: 01-06-2023 Office outpatient ne w 45 minutes Imad Asaad [facility] Start: 01-02-2023 End: 01-02-2023 ambulatory Anirudh Wang Other [employer] Other Start: 01-02-2023 Nursing evaluation o f patient and report Anirudh Wang [facility] Start: 12-25-2022 Telephone encounter Anirudh WING [facility] Start: 12-25-2022 End: 12-26-[address] ANIRUDH WAGN [facility] [employer] Other Start: 12-18-2022 End: 12-18-2022 ambulatory Anirudh Wang Other [employer] Other Start: 12-18-2022 Office outpatient visit 25 minutes Anirudh Wang [facility] Start: 12-13-2022 End: 12-13-2022 ambulatory Anirudh Wang Other [employer] Other Start: 12-13-2022 Telephone encounter Anirudh WING [facility] Start: 12-04-2022 End: 12-04-2022 ambulatory Anirudh Wang Other [employer] Other Start: 12-04-2022 Telephone encounter Anirudh WING [facility] Start: 12-02-2022 End: 12-03-[address] ANIRUDH WANG [facility] [employer] Other Start: 12-02-2022 Nursing evaluation o f patient and report Anirudh Wang [facility] Start: 12-02-2022 Office outpatient visit 15 minutes Anirudh Wang [facility] Start: 11-25-2022 End: 11-26-2022 ambulatory Bijan VELAZQUEZ Facility:[facility] Start: 11-25-2022 End: 11-25-2022 Patient encounter procedure Bijan VELAZQUEZ [facility] Start: 11-18-2022 End: 11-19-[address] BIJAN VELAZQUEZ . Facility: Start: 10-31-2022 End: 10-31-2022 ambulatory Anirudh Wang Other [employer] Other Start: 10-31-2022 Nursing evaluation o f patient and report Anirudh Wang [facility] Start: 10-08-2022 End: 10-08-2022 ambulatory Anirudh Wang Other [employer] Other Start: 10-08-2022 Telephone encounter Anirudh WING [facility] Start: 09-30-2022 End: 09-30-2022 ambulatory Anirudh Wang Other [employer] Other Start: 09-30-2022 Nursing evaluation o f patient and report Anirudh Wang [facility] Start: 09-27-2022 Encounter for genera l adult medical examination without abnormal findings DR ANIRUDH WANG [facility] Start: 09-27-2022 End: 09-27-2022 ambulatory Anirudh Wang Other [employer] Other Start: 09-27-2022 Telephone encounter Anirudh WING [facility] Start: 09-20-2022 Patient encounter procedure Anirudh Wang [facility] Start: 09-20-2022 End: 09-21-[address] ANIRUDH WANG [facility] [employer] Other Start: 09-20-2022 End: 09-21-2022 Encounter for general adult medical examination without abnormal findings DR ANIRUDH WANG Facility: Start: 09-17-2021 Adult health examination Anirudh Wang Other [facility] [employer] Other Procedures Date Procedure Procedure Detail Performing Clinician Start: 01-23-2023 Esophagogastroduodenoscopy DO Anirudh wilkerson Work Phone: Start: 11-18-[address] BIJAN VELAZQUEZ . Comment on above: Performed By: #### CBC #### [facility] [address] [place] [address] Dr. Haley Mays Start: 01-01-2017 Hyperlipidemia screening [...] Date Care Activity Detail Author Start: 01-23-2023 [facility] Patient Education Colon polyps [facility] Work Phone: Immunizations Immunization Date Immunization Notes Care Provider Fa cility NEGATED: Highlighted row has not occurred!11-20-2020 influenza virus vaccine, unspecified formulation Bijan VELAZQUEZ [facility] NEGATED: Highlighted row has not occurred!11-22-2019 influenza virus vaccine, live, attenuated, for intranasal use Bijan VELAZQUEZ [facility] Payers Date Payer Category Payer Self-pay 1961 Medicare [id number] 1950 Unknown [id number] 3 1948 Unknown [id number] 3 1948 Unknown [id number] 3 1948 Unknown [id number] 3 1948 Unknown [id number] 3 1948 Unknown [id number] 3 1948 Unknown [id number] 7 1948 Unknown [id number] 7 Private Health Insurance [employer] PFFS N on Pt [id number] Unknown [id number] 1 Unknown [id number] 1 Unknown [id number] 1 Social History Date Type Detail Facility Sex Assigned At [facility]: 11-25-2022 End: 09-19-2023 Tobacco smoking status Never smoked tobacco (finding) [facility] Tobacco smoking status Never [facility] [facility] Start: 1950 Sex Assigned At Male F [facility] Medical Equipment Procedure Code Equipment Code Equipment Origin al Text Equipment Identifier Dates Repair, hernia, inguinal, with mesh Abdominal hernia surgical mesh, synthetic polymer, non-bioabsorbable [id number] FDA Start: 04-10-2023 Goals Date Patient Goal Desired Activity /State Functional Status Date Assessment Result Facility 11-25-2022 Functional Status N/A [facility] Clinical Notes 09-20-2022 to 11-28-2023 Note Date & Type Note Facility 11-28-2023 Evaluation note Diagnosis Onset Date Pernicious anemia acute Chronic venous insufficiency of lower extremity acute Primary hypertension acute Stage 3a chronic kidney disease (CKD) [facility] Work Phone: [phone]) 799-633101-15-2024 Evaluation note* Encounter Date Diagnosis Assessment Notes Treatment Notes Treatment Clinical Notes Sep, Pernicious anemia (ICD-10 - D51.0) [employer] Other 01-12-2024 Evaluation note* Encounter Date Diagnosis [...] quality Sep, Pernicious anemia (ICD-10 - D51.0) [employer] Other 12-13-2023 Evaluation note* Encounter Date Diagnosis [...] may cause sedation Recheck in 1 mo [employer] Other 11-20-2023 Evaluation note* Encounter Date Diagnosis Assessment Notes Treatment Notes Treatment Clinical Notes Jul, Primary hypertension (ICD-10 - I10) [employer] Other 11-13-2023 Evaluation note* Encounter Date Diagnosis Assessment Notes Treatment Notes Treatment Clinical Notes Jul, Pernicious anemia (ICD-10 - D51.0) [employer] Other 09-11-2023 Evaluation note* Encounter Date Diagnosis Assessment Notes Treatment Notes Treatment Clinical Notes May, Pernicious anemia (ICD-10 - D51.0) [employer] Other 09-08-2023 Evaluation note* Encounter Date Diagnosis Assessment Notes Treatment Notes Treatment Clinical Notes May, Other osteoporosis without current pathological fracture (ICD-10 - M81.8) [employer] Other 08-10-2023 Evaluation note* Encounter Date Diagnosis [...] softeners for maintenance as well as Metamucil. [employer] Other 08-07-2023 Evaluation note* Encounter Date Diagnosis Assessment Notes Treatment Notes Treatment Clinical Notes Apr, Celiac disease (ICD-10 - K90.0) Patient advised to avoid gluten Apr, Encounter for screening for osteoporosis (ICD-10 - Z13.820) [employer] Other 06-05-2023 Evaluation note* Encounter Date Diagnosis Assessment Notes Treatment Notes Treatment Clinical Notes Feb, Pernicious anemia (ICD-10 - D51.0) [employer] Other 05-31-2023 Evaluation note* Encounter Date Diagnosis Assessment Notes Treatment Notes Treatment Clinical Notes January, Pernicious anemia (ICD-10 - D51.0) Continue monthly B12 injections January, Celiac disease (ICD-10 - K90.0) Continue Gluten free diet f/u GI January, Chronic idiopathic constipation (ICD-10 - K59.04) Miralax and Amitiza didn't help. Using Supp every 72 hours as needed. Push fluids [employer] Other 05-26-2023 Evaluation note* Encounter Date Diagnosis Assessment Notes Treatment Notes Treatment Clinical Notes January, Celiac disease (ICD-10 - K90.0) [employer] Other 05-01-2023 Evaluation note* Encounter Date Diagnosis [...] January, Iron deficiency anemia (ICD-10 - D50.9) [employer] Other 04-27-2023 Evaluation note* Encounter Date Diagnosis Assessment Notes Treatment Notes Treatment Clinical Notes Dec, Pernicious anemia (ICD-10 - D51.0) [employer] Other 04-12-2023 Evaluation note* Encounter Date Diagnosis [...] schedule CT scan to r/o obstructing mass [employer] Other 03-27-2023 Evaluation note* Encounter Date Diagnosis Assessment Notes Treatment Notes Treatment Clinical Notes Nov, Pernicious anemia (ICD-10 - D51.0) [employer] Other 03-27-2023 Evaluation note* Encounter Date Diagnosis [...] adequate fluid balance and to avoid dehydration. [employer] Other 03-20-2023 Hospital Discharge instructions Patient Education [...] urethra. Follow these instructions at home: Take [id number]-[id number] and prescription medicines only as told by [...] 08/25/2006 Document Revised: 07/20/2019 Document Reviewed: 09/29/2017 IM5 Patient Education 2020 [employer]. Follow Up Care 11/23/2021 08:51:05 With:ANDREEA DIXON, Bijan Ruby, URL Address: [facility] [address] , [place] [address]- When: Unknown [facility] 02-23-2023 Evaluation note* Encounter Date Diagnosis Assessment Notes Treatment Notes Treatment Clinical Notes Oct, Pernicious anemia (ICD-10 - D51.0) [employer] Other 01-23-2023 Evaluation note* Encounter Date Diagnosis Assessment Notes Treatment Notes Treatment Clinical Notes Sep, Pernicious anemia (ICD-10 - D51.0) [facility] [employer] Other 01-20-2023 Evaluation note* Encounter Date Diagnosis Assessment Notes Treatment Notes Treatment Clinical Notes Sep, Anemia, unspecified type (ICD-10 - D64.9) [employer] Other 01-13-2023 Evaluation note* Encounter Date Diagnosis [...] High risk medication use (ICD-10 - Z79.899) [employer] Other Evaluation + Plan note Future Appointments Appointment Date:11/28/2023 08:30:00 AM Scheduled Provider:Bijan VELAZQUEZ MD Location:[facility] Appointment Type:URO Office Visit Diagnostic Tests Pending * PSA Total 11/25/22 [facility] evaluation noteNo [facility] [employer] Other Evaluation noteNo assessment information available [facility] Work Phone: History general Narrative - Reported* [...] CATARACT ECTRACTION, BILATERAL Hospitalization History SEE ABOVE [employer] Other History general Narrative - Reported* Type [...] polypectomy 01/25 23 Hospitalization History SEE ABOVE [employer] Other History general Narrative - ReportedNortSymetrica Other [employer] general Narrative - Reported* Type Description Date [...] inguinal hernia 04/2023 Hospitalization History SEE ABOVE [employer] Other [employer] general Narrative - Reported* Type Description Date [...] inguinal hernia 04/2023 Hospitalization History SEE ABOVE [employer] Other Hospital course Narrative No data available for this section [facility] progress note No data available for this section [facility] reason for referral (narrative)* Reason *Waiting for appt Referral to confirm Celiac disease Diagnosis 1 Celiac disease (K90. 0) Referral Organization [facility] Referring Provider First Name Anirudh Referring Provider Last Name [facility] Referring Provider Specialty Internal Me dicine Referred Organization [facility] Referred Provider Zeeshan Joe Referred Address [address],[address] Referred Provider Specialty Gastroentero logy Referral Priority Routine General Notes Sanam Guido 11:00:10 AM >RECEIVED TODAY, SENT P2P [employer] Other Summary Purpose Family History Relationship Condition [...] Follow up -b12Lab ResultsGASTRO CONSULTNo InformationB-12 ShotRefillDEXA [id number] QuestionHigh BP1 month Follow up1 month Follow [...] content) DATE CREATED AUTHOR [facility]/14/2023 [facility] DATE CREATED AUTHOR AUTHOR'S ORGANIZ ATION 04/21/2023 [facility] DATE CREATED AUTHOR AUTHOR'S ORGANIZ ATION 10/21/2023 [facility] Goals (unrecognized section and content) Goals may [...] BE BASED ON THE PRIMARY CLINICAL RECORDS. [facility] [employer] [facility]. provides no warranty or guarantee of the accuracy or completeness of information in this document.
[2023-12-10 10:23] LABS: Bilirubin Urine NEGATIVE (NEGATIVE); Blood Urine NEGATIVE (NEGATIVE); Clarity Urine CLEAR (CLEAR); Color Urine LT. YELLOW (YELLOW); Glucose Urine UA NEGATIVE (NEGATIVE); Ketones Urine NEGATIVE (NEGATIVE); Leukocyte Esterase Urine NEGATIVE (NEGATIVE); Nitrite Urine NEGATIVE (NEGATIVE); Protein Urine NEGATIVE (NEG/TRACE); Specific Gravity Urine 1.015 (1.005-1.025); Urobilinogen Urine 0.2 EU/dL (0.2-1.0)
[2023-12-10 12:46] LABS: Anion Gap 12.2; BUN Creatinine Ratio 14.4; Calcium 9.1 mg/dL (8.5-10.1); Carbon Dioxide 29.9 mmol/L (21.0-32.0); Chloride 102 mmol/L (98-107); Estimated GFR (African America 39 (>=60); Estimated GFR (Non-African Ame 32 (>=60); Glucose 92 mg/dL (74-106); Potassium 5.1 mmol/L (3.5-5.1); Sodium 139 mmol/L (136-145)
== END 2023-12-10 09:23 | disposition home or self-care (01) ==
LOC: LAB 09:24
PROVIDERS: PCP Internal Medicine; Visit Provider Internal Medicine
DX: N18.31 Chronic kidney disease, stage 3a (principal); I10 Essential (primary) hypertension
CPT/HCPCS: 36415; 80048; 81003

== ENCOUNTER 2023-12-16 07:57 | Outpatient (OUT) | payer MEDICARE, SELFPAY ==
--- NOTE | 2023-12-16 08:00 | US_ITS ---
[address] [address] Patient Name: SANTIAGO MONTESINOS MRN: [id number] date: 1950 Sex: M Assigned Patient Location: [place] Current Patient Location: [place] Accession/Order Number: [id number] Exam Date: 12/16/2023 08:02 Report Date: 12/16/2023 10:23 At the request of: NILTON LR Procedure: US renal BI EXAMINATION: US renal BI HISTORY: Chronic Kidney Disease, Primary Hypertension COMPARISON: No relevant comparison available. TECHNIQUE: Ultrasound examination was performed of the bladder. FINDINGS: Right Kidney: Small in size, slightly nodular cortical contour. Diffuse increase in cortical echotexture. The cortex measures 7.8 mm thick. No solid cortical mass, hydronephrosis or obstructing nephrolithiasis Height: 4.8 cm Length: 9.0 cm Width: 4.1 cm Left Kidney: Small in size, slightly nodular cortical contour. Diffuse increase in cortical echotexture. The cortex measures 8.5 mm thick. No solid cortical mass, hydronephrosis or obstructing nephrolithiasis Height: 6.3 cm Length: 11.3 cm Width: 5.3 cm Urinary bladder is unremarkable US/US renal BI IMPRESSION: Bilateral renal cortical atrophy with increased cortical echotexture suggests medical renal disease Electronically authenticated by: RUSTY SILVA Date: 12/16/2023 10:23
--- OUTSIDE RECORDS SUMMARY | 2023-12-16 08:02 | XMS_ITS | CCD ---
Author Organization [facility] Care Team Providers Care Perfumer Name Role Phone Anirudh Wang Unavailable ANIRUDH WANG Primary Care Physician Asaad, Imad Unavailable ANDREEA Mcguire, DR STEVENSON Attending Unavailable ANDREEA ., DR STEVENSON Consulting Unavailable ANDREEA ., DR STEVENSON Admitting Unavailable FELIPE, DR CALLAWAY Primary Care Unavailable FELIPE, DR CALLAWAY Admitting Unavailable FELIPE, DR CALLAWAY Attending Unavailable BALL, DR CALLAWAY Consulting Unavailable FELIPE, DR CALLAWAY Primary Care Unavailable ASAADOLFO, IMADOLFO Admitting Unavailable BALL, DR CALLAWAY Primary Care Unavailable ASAADOLFO, IMADOLFO Attending Unavailable SUKHWINDER, HECTOR Consulting Unavailable WAI DAUGHERTY Attending Unavailable WAI DAUGHERTY Admitting Unavailable SHIRA, DR RUSTY Aguilera Consulting Unavailable FELIPE, DR CALLAWAY Primary Care Unavailable WAI DAUGHERTY Consulting Unavailable FELIPE, DR CALLAWAY Admitting Unavailable FELIPE, DR CALLAWAY Attending Unavailable FELIPE, DR CALLAWAY Consulting Unavailable FELIPE, DR CALLAWAY Primary Care Unavailable COURTNEY GILL Consulting Unavailable FELIPE, DR CALLAWAY Admitting Unavailable BALL, DR CALLAWAY Attending Unavailable BALL, DR CALLAWAY Consulting Unavailable FELIPE, DR CALLAWAY Primary Care Unavailable MD Hector Pretty Attending Provider [phone] DO Anirudh Wang Primary Care Provider MD Ryan Cornell Attending Provider Sukhwinder Imadolfo Attending Unavailable Anirudh Wang Primary Care Unavailable Sukhwinder, Imadolfo Admitting Unavailable Anirudh Wang Primary Care Unavailable Ryan Cornell Admitting Unavailable Ryan Cornell Attending Unavailable Anirudh Wang Primary Care Unavailable Ryan Cornell Admitting Unavailable Ryan Cornell Attending Unavailable Tricia Weiss Unavailable Bijan DORAN Attending Unavailable Allergies Allergy Classification Reported Allergen(s) Allergy Type Date of Onset Reaction(s) Facility (20 sources) Doxycycline Drug Allergy Unknown [facility] Other (4 sources) patient allergy list reviewed by nurse or physicia Propensity to adverse reactions Comment:Done [facility] Other (1 source) Doxycycline Drug Allergy Unknown [facility] Other Medications Current Medications Medication Drug Class(es) [...] Hydrocodone-Acetami nophen Discontinued 1 TAB PO Q6H 25 01April 10, 2023 October 24, 2023 10:55am B-12 [...] fracture] Chronic Other aftercare (2 sources) Other snf (current) drug therapy; Translations: [OTH [employer]OCIATE CURRENT DRUG THERAPY] Onset: 02-05-2023 Episodic Other [...] Disease caused by 2019-nCoV; Translations: [COVID-19] Resolved: 02-18-2022 Results Test Name Value Interpretation Reference Range Facility [facility] 12-10-2023 Lab Reports [id number] Normal [facility] Potassiumon 04-10-2023 Potassium [Moles/Vol] 4.3 mmol/L Normal 3.5-5.1 [facility] Comment on above: Result Comment: PERF ORMED BY: [place] [address] PATHOLOGIST NUTRITIONAL SERVICES DIRECTOR ANGELICA SUN M.D. Performed By: #### K #### [address] Basic Metabolic Panelon 03-09 Anion gap [Moles/Vol] 9.5 mmol/L Normal 6.0-15.0 [facility] Comment on above: Performed By: #### C BC, BMP #### [address] Calcium [Mass/Vol] 9.2 mg/dL Normal 8.6-10.3 [facility] Comment on above: Result Comment: PERF ORMED BY: [place] [address] PATHOLOGIST NUTRITIONAL SERVICES DIRECTOR ANGELICA SUN M.D. Performed By: #### C BC, BMP #### [place] [address] [place] Chloride [Moles/Vol] 107 mmol/L Normal 98-107 [facility] Comment on above: Performed By: #### C BC, BMP #### [place] [address] [place] CO2 [Moles/Vol] 28.4 mmol/L Normal 21.0-31.0 [facility] Comment on above: Performed By: #### C BC, BMP #### [place] [address] [place] Creatinine [Mass/Vol] 1.47 mg/dL High 0.70-1.30 [facility] Comment on above: Performed By: #### C BC, BMP #### [facility] [address] [place] [address] [place] GFR/1.73 sq M.predicted MDRD (S/P/Bld) [Vol rate/Area] 49.742 mL/min/{1.73_m2} Normal [facility] Comment on above: Performed By: #### C GARRETT, BMP #### [facility] [address] Glucose [Mass/Vol] 90 mg/dL Normal 70-100 [facility] Comment on above: Result Comment: [facility] [place] Glucose Reference Range is dependent on time and content of last meal. Glucose of more than 200 mg/dL in a nonstressed, ambulatory subject supports the diagnosis of Diabetes Mellitus. ADA recommended reference range Performed By: #### C GARRETT, BMP #### [facility] [address] Potassium [Moles/Vol] 5.9 mmol/L High 3.5-5.1 [facility] Comment on above: Performed By: #### C GARRETT, BMP #### [facility] [address] Sodium [Moles/Vol] 139 mmol/L Normal 136-145 [facility] Comment on above: Performed By: #### C GARRETT, BMP #### [facility] [address] Urea nitrogen [Mass/Vol] 27 mg/dL High 7-25 [facility] Comment on above: Performed By: #### C GARRETT, BMP #### [facility] [address] [place] [address] [place] Basophils Auto (Bld) [#/Vol] Ordered By: Ryan Cornell on 03-27-2023 Basophils (Bld) [#/Vol] 0.0 10*3/uL 0.0-0.2 [facility] Basophils/100 WBC Auto (Bld) Ordered By: Ryan Cornell on 03-27-2023 Basophils/100 WBC (Bld) 0.6 % . [facility] Calcium [Mass/volume] in Ser um or PlasmaOrdered By: Ryan Cornell on 03-27-2023 Calcium [Mass/Vol] 9.2 mg/dL 8.6-10.3 [facility] Carbon dioxide, total [Moles /volume] in Serum or PlasmaOrdered By: Ryan Cornell on 03-27-2023 CO2 [Moles/Vol] 28.4 mmol/L 21.0-31.0 [facility] Chloride [Moles/volume] in S arturo or PlasmaOrdered By: Ryan Cornell on 03-27-2023 Chloride [Moles/Vol] 107 mmol/L 98-107 [facility] Complete Blood Count Auto Di ffon 03-27-2023 Basophils (Bld) [#/Vol] 0.0 10*3/uL Normal 0.0-0.2 [facility] Comment on above: Result Comment: PERF ORMED BY: [place] [address] PATHOLOGIST NUTRITIONAL SERVICES DIRECTOR ANGELICA SUN M.D. Performed By: #### C BC, BMP #### [address] Basophils/100 WBC (Bld) 0.6 % Normal . [facility] Comment on above: Performed By: #### C BC, BMP #### [address] Eosinophils (Bld) [#/Vol] 0.2 10*3/uL Normal 0.0-0.45 [facility] Comment on above: Performed By: #### C BC, BMP #### [address] Eosinophils/100 WBC (Bld) 3.2 % Normal . [facility] Comment on above: Performed By: #### C BC, BMP #### [address] Erythrocyte distribution width (RBC) [Ratio] 13.3 % Normal 12.0-14.8 [facility] Comment on above: Performed By: #### C BC, BMP #### [address] Hematocrit (Bld) [Volume fraction] 36.5 % Low 38.8-50.0 [facility] Comment on above: Performed By: #### C BC, BMP #### [address] Hemoglobin (Bld) [Mass/Vol] 12.3 g/dL Low 13.0-17.0 [facility] Comment on above: Performed By: #### C BC, BMP #### [address] Lymphocytes (Bld) [#/Vol] 1.6 10*3/uL Normal 1.00-4.8 [facility] Comment on above: Performed By: #### C BC, BMP #### [address] Lymphocytes/100 WBC (Bld) 24.3 % Normal . [facility] Comment on above: Performed By: #### C BC, BMP #### [address] MCH (RBC) [Entitic mass] 31.8 pg Normal 27.5-35.2 [facility] Comment on above: Performed By: #### C BC, BMP #### [address] MCV (RBC) [Entitic vol] 94.2 fL Normal 83.5-101 [facility] Comment on above: Performed By: #### C BC, BMP #### [address] Mean Corpuscular HGB Conc 33.7 g/dL Normal 32.5-35.6 [facility] Comment on above: Performed By: #### C BC, BMP #### [address] Monocytes (Bld) [#/Vol] 0.7 10*3/uL Normal 0.0-0.8 [facility] Comment on above: Performed By: #### C BC, BMP #### [address] Monocytes/100 WBC (Bld) 11.1 % Normal . [facility] Comment on above: Performed By: #### C BC, BMP #### [facility] [address] Neutrophils (Bld) [#/Vol] 3.9 10*3/uL Normal 1.8-7.7 [facility] Comment on above: Performed By: #### C BC, BMP #### [facility] [address] Neutrophils/100 WBC (Bld) 60.8 % Normal . [facility] Comment on above: Performed By: #### C GARRETT, BMP #### [facility] [address] NRBC% 0.1 /100{WBC} Normal 0-0.5 [facility] Comment on above: Performed By: #### C GARRETT, BMP #### [facility] [address] Platelet mean volume (Bld) [Entitic vol] 7.9 fL Normal 6.6-10.1 [facility] Comment on above: Performed By: #### C GARRETT, BMP #### [facility] [address] Platelets (Bld) [#/Vol] 235 10*3/uL Normal 150-450 [facility] Comment on above: Performed By: #### C GARRETT, BMP #### [facility] [address] [place] [address] [place] RBC (Bld) [#/Vol] 3.87 10*6/uL Low 3.90-5.60 [facility] Comment on above: Performed By: #### C BC, BMP #### [facility] [address] WBC (Bld) [#/Vol] 6.5 10*3/uL Normal 4.1-10.5 [facility] Comment on above: Performed By: #### C BC, BMP #### [facility] [address] Creatinine [Mass/volume] in Serum or PlasmaOrdered By: Ryan Cornell on 03-27-2023 Creatinine [Mass/Vol] 1.47 mg/dL 0.70-1.30 [facility] ECG 12 lead ECGon 03-27-2023 ECG 12 lead ECG [facility] [address] [place] [address] [place] [address] Electrocardiograph Report Signed Patient: Marcelino Escobar MR#: [id number] 48 : 1950 Acct:[id number] Age/Sex: 72 / M ADM Date: 03/27/23 Loc: Room: Type: [facility] Attending Dr: Ryan Cornell MD [...] Signed By Duglas Hernandez MD 0807 Normal [facility] Eosinophils Auto (Bld) [#/Vo l]Ordered By: Ryan Cornell on 03-27-2023 Eosinophils (Bld) [#/Vol] 0.2 10*3/uL 0.0-0.45 [facility] Eosinophils/100 WBC Auto (Bl d)Ordered By: Ryan Cornell on 03-27-2023 Eosinophils/100 WBC (Bld) 3.2 % . [facility] Erythrocyte distribution wid th Auto (RBC) [Ratio]Ordered By: Ryan Cornell on 03-27-2023 Erythrocyte distribution width (RBC) [Ratio] 13.3 % 12.0-14.8 [facility] Glucose [Mass/volume] in Ser um or PlasmaOrdered By: Ryan Cornell on 03-27-2023 Glucose [Mass/Vol] 90 mg/dL 70-100 [facility] Comment on above: ADA recommended refe rence rangeRandom Glucose Reference Range is dependent on time and content of last meal. Glucose of more than 200 mg/dL in a nonstressed, ambulatory subject supports the diagnosis of Diabetes Mellitus. Hematocrit Auto (Bld) [Volum e fraction]Ordered By: Ryan Cornell on 03-27-2023 Hematocrit (Bld) [Volume fraction] 36.5 % 38.8-50.0 [facility] Hemoglobin [Mass/volume] in BloodOrdered By: Ryan Cornell on 03-27-2023 Hemoglobin (Bld) [Mass/Vol] 12.3 g/dL 13.0-17.0 [facility] Leukocytes [#/volume] correc denis for nucleated erythrocytes in Blood by Automated counOrdered By: Ryan Cornell on 03-27-2023 WBC corrected for nucl RBC Auto (Bld) [#/Vol] 6.5 10*3/uL 4.1-10.5 [facility] Lymphocytes Auto (Bld) [#/Vo l]Ordered By: Ryan Cornell on 03-27-2023 Lymphocytes (Bld) [#/Vol] 1.6 10*3/uL 1.00-4.8 [facility] Lymphocytes/100 WBC Auto (Bl d)Ordered By: Ryan Cornell on 03-27-2023 Lymphocytes/100 WBC (Bld) 24.3 % . [facility] MCH Auto (RBC) [Entitic mass ]Ordered By: Ryan Cornell on 03-27-2023 MCH (RBC) [Entitic mass] 31.8 pg 27.5-35.2 [facility] MCHC Auto (RBC) [Mass/Vol]Or dered By: Ryan Cornell on 03-27-2023 MCHC (RBC) [Mass/Vol] 33.7 g/dL 32.5-35.6 [facility] MCV Auto (RBC) [Entitic vol] Ordered By: Ryan Cornell on 03-27-2023 MCV (RBC) [Entitic vol] 94.2 fL 83.5-101 [facility] Monocytes Auto (Bld) [#/Vol] Ordered By: Ryan Cornell on 03-27-2023 Monocytes (Bld) [#/Vol] 0.7 10*3/uL 0.0-0.8 [facility] Monocytes/100 WBC Auto (Bld) Ordered By: Ryan Cornell on 03-27-2023 Monocytes/100 WBC (Bld) 11.1 % . [facility] Neutrophils Auto (Bld) [#/Vo l]Ordered By: Ryan Cornell on 03-27-2023 Neutrophils (Bld) [#/Vol] 3.9 10*3/uL 1.8-7.7 [facility] Neutrophils/100 WBC Auto (Bl d)Ordered By: Ryan Cornell on 03-27-2023 Neutrophils/100 WBC (Bld) 60.8 % . [facility] No Panel InformationOrdered By: Ryan Cornell on 03-27-2023 Estimated GFR (CKD-EPI) 49.742 mL/Min [facility] Creatinine Clearance (Chem N/A [facility] Nucleated erythrocytes [Pres ence] in Blood by Automated countOrdered By: Ryan Cornell on 03-27-2023 Nucleated RBC Auto Ql (Bld) 0.1 /100{WBC} 0-0.5 [facility] Platelet mean volume Auto (B ld) [Entitic vol]Ordered By: Ryan Cornell on 03-27-2023 Platelet mean volume (Bld) [Entitic vol] 7.9 fL 6.6-10.1 [facility] Platelets Auto (Bld) [#/Vol] Ordered By: Ryan Cornell on 03-27-2023 Platelets (Bld) [#/Vol] 235 10*3/uL 150-450 [facility] Potassium [Moles/volume] in Serum or PlasmaOrdered By: Ryan Cornell on 03-27-2023 Potassium [Moles/Vol] 5.9 mmol/L 3.5-5.1 [facility] RBC Auto (Bld) [#/Vol]Ordere d By: Ryan Cornell on 03-27-2023 RBC (Bld) [#/Vol] 3.87 10*6/uL 3.90-5.60 [facility] Serum or plasma anion gap de terminationOrdered By: Ryan Cornell on 03-27-2023 Anion gap [Moles/Vol] 9.5 mmol/L 6.0-15.0 [facility] Sodium [Moles/volume] in Ser um or PlasmaOrdered By: Ryan Cornell on 03-27-2023 Sodium [Moles/Vol] 139 mmol/L 136-145 [facility] Urea nitrogen [Mass/volume] in Serum or PlasmaOrdered By: Ryan Cornell on 03-27-2023 Urea nitrogen [Mass/Vol] 27 mg/dL 7- [facility] WBC Auto (Bld) [#/Vol]Ordere d By: Ryan Cornell on 03-27-2023 WBC (Bld) [#/Vol] 6.5 10*3/uL 4.1-10.5 [facility] CBC AUTO DIFFon 02-04-2023 BASO # 0.0 103/ul Normal 0.0-0.1 [facility] Comment on above: Performed By: #### C BC #### [facility] [address] [place] [address] Dr. Haley Mays Basophils/100 WBC (Bld) 0.4 % Normal 0.2-2.0 [facility] Comment on above: Performed By: #### C BC #### [facility] [address] [place] [address] Dr. Haley Mays EO # 0.0 103/ul Normal 0.0-0.7 [facility] Comment on above: Performed By: #### C BC #### [facility] [address] [address] [address] Haley Mays Eosinophils/100 WBC (Bld) 0.5 % Critically low 0.9-7.0 [facility] Comment on above: Performed By: #### C BC #### [facility] [address] [address] [address] Haley Mays Erythrocyte distribution width (RBC) [Ratio] 12.3 % Normal 11.0-15.0 [facility] Comment on above: Performed By: #### C BC #### [facility] [address] [place] [address] Dr. Haley Mays Hematocrit (Bld) [Volume fraction] 33.2 % Critically low 42.0-54.0 [facility] Comment on above: Performed By: #### C BC #### [facility] [address] [place] [address] Dr. Haley Mays Hemoglobin (Bld) [Mass/Vol] 11.6 g/dL Critically low 14.0-18.0 [facility] Comment on above: Performed By: #### C BC #### [facility] [address] [place] [address] Dr. Haley Mays IG # 0.05 10e3/ul Critically high 0.00-0.03 [facility] Comment on above: Performed By: #### C BC #### [facility] [address] [place] [address] Dr. Haley Mays IG % 0.9 % Critically high 0.0-0.5 [facility] Comment on above: Performed By: #### C BC #### [facility] [address] [place] [address] Dr. Haley Mays LYMPH # 1.3 103/ul Normal 1.2-3.8 [facility] Comment on above: Performed By: #### C BC #### [facility] [address] [place] [address] Dr. Haley Mays Lymphocytes/100 WBC (Bld) 21.9 % Normal 20.5-60.0 [facility] Comment on above: Performed By: #### C BC #### [facility] [address] [place] [address] Dr. Haley Mays MANUAL DIFF REQ NO Normal [facility] Comment on above: Performed By: #### C BC #### [facility] [address] [place] [address] Dr. Haley Mays MCH (RBC) [Entitic mass] 32.0 pg Normal 25.9-34.0 [facility] Comment on above: Performed By: #### C BC #### [facility] [address] [place] [address] Dr. Haley Mays MCHC (RBC) [Mass/Vol] 34.9 g/dL Normal 29.9-35.2 [facility] Comment on above: Performed By: #### C BC #### [facility] [address] [place] [address] Dr. Haley Mays MCV (RBC) [Entitic vol] 91.5 fL Normal 80.0-94.0 [facility] Comment on above: Performed By: #### C BC #### [facility] [address] [place] [address] Dr. Haley Mays MONO # 0.7 103/ul Normal 0.3-0.8 [facility] Comment on above: Performed By: #### C BC #### [facility] [address] [place] [address] Dr. Haley Mays Monocytes/100 WBC (Bld) 11.6 % Normal 1.7-12.0 [facility] Comment on above: Performed By: #### C BC #### [facility] [address] [place] [address] Dr. Haley Mays NEUT # 3.7 103/ul Normal 1.4-6.5 [facility] Comment on above: Performed By: #### C BC #### [facility] [address] [place] [address] Dr. Haley Mays Neutrophils/100 WBC (Bld) 64.7 % Normal 43.0-75.0 [facility] Comment on above: Performed By: #### C BC #### [facility] [address] [place] [address] Dr. Haley Mays Platelet mean volume (Bld) [Entitic vol] 9.1 fL Critically low 9.5-13.5 [facility] Comment on above: Performed By: #### C BC #### [facility] [address] [place] [address] Dr. Haley Mays PLT 281 103/ul Normal 150-450 [facility] Comment on above: Performed By: #### C BC #### [facility] [address] [place] [address] Dr. Haley Mays RBC 3.63 106/ul Critically low 4.70-6.10 [facility] Comment on above: Performed By: #### C BC #### [facility] [address] [place] [address] Dr. Haley Mays WBC 5.7 103/ul Normal 4.0-11.0 [facility] Comment on above: Performed By: #### C BC #### [facility] [address] [place] [address] Dr. Haley Mays PROF CHEM 8 (BAS METB)on Anion gap [Moles/Vol] 15.2 mmol/L Normal [facility] Comment on above: Performed By: #### B MP #### [facility] [address] [place] [address] Dr. Haley Mays Calcium [Mass/Vol] 8.8 mg/dL Normal 8.5-10.1 [facility] Comment on above: Performed By: #### B MP #### [facility] [address] [place] [address] Dr. Haley Mays Chloride [Moles/Vol] 97 mmol/L Critically low 98-107 [facility] Comment on above: Performed By: #### B MP #### [facility] [address] [place] [address] Dr. Haley Mays CO2 [Moles/Vol] 23.5 mmol/L Normal 21.0-32.0 [facility] Comment on above: Performed By: #### B MP #### [facility] [address] [place] [address] Dr. Haley Mays Creatinine [Mass/Vol] 1.44 mg/dL Critically high 0.70-1.30 [facility] Comment on above: Performed By: #### B MP #### [facility] [address] [place] [address] Dr. Haley Mays EGFR-AF SUDANESE 58 mL/min/1.73m2 Critically low >=60 [facility] Comment on above: Performed By: #### B MP #### [facility] [address] [address] [address] Haley Mays EGFR-NON AF SUDANESE 48 mL/min/1.73m2 Critically low >=60 [facility] Comment on above: Performed By: #### B MP #### [facility] [address] [address] [address] Haley Mays Glucose [Mass/Vol] 129 mg/dL Critically high 74-106 T [facility] Comment on above: Performed By: #### B MP #### [facility] [address] [address] [address] Haley Mays Potassium [Moles/Vol] 4.7 mmol/L Normal 3.5-5.1 [facility] Comment on above: Performed By: #### B MP #### [facility] [address] [address] [address] Haley Mays Sodium [Moles/Vol] 131 mmol/L Critically low 136-145 [facility] Comment on above: Performed By: #### B MP #### [facility] [address] [address] [address] Haley Mays Urea nitrogen [Mass/Vol] 16.0 mg/dL Normal 7.0-18.0 [facility] Comment on above: Performed By: #### B MP #### [facility] [address] [address] [address] Haley Mays Urea nitrogen/Creatinine [Mass ratio] 11.1 mg/mg Normal [facility] Comment on above: Performed By: #### B MP #### [facility] [address] [place] [address] Dr. Haley Mays XR KUB 1 VIEWon 02-04-2023 XR KUB 1 VIEW EXAMINATION: XR KUB 1 VIEW HISTORY: Pain COMPARISON: No relevant comparison available. FINDINGS: BOWEL GAS PATTERN: No abnormal dilation or deviation. CALCIFICATIONS: None significant. OTHER: Mild bilateral hip osteoarthropathy. Degenerative spondylosis. No abnormal gaseous collections. IMPRESSION: Nonobstructive bowel gas pattern Electronically authenticated by: RUSTY SILVA Date: 2023-02-04 13:57 Normal [facility] 01-23-2023 L Specimen: [id number] Received: 01/24/23 Status: TONY Rosen Num: [id number] Spec Type: Surgical Subm Dr: Hector Pretty MD Tissues: A Stomach - Biopsy/Polyp (DUOD BX) B Colon Biopsy (RNDM COL BX) C Colon Biopsy (DESC COL POLYP) Procedures: [place]/Janeth Hairston/Micro L4/3 Age/ Patient Sex Location Account Attending Physician Marcelino Escobar/Patria [id number] Hector Pretty MD SPEC NUM: [id number] RECD: 01/24/23 STATUS: TONY ROSEN NUM: [id number] REGINALDO: 01/23/23- SUBM DR: Hector Pretty MD ENTERED: 01/24/23 [facility] DR: SPEC TYPE: Surgical DEPT: S ENTERED BY: [id number] RECV BY: [id number] ORDERED: HE/6, Gross/Micro L4/3 ORDERED: HE/6, Gross/Micro [...] rule out celiac, rule out microscopic colitis Specimen: [id number] Received: 01/24/23 Status: TONY Nielsondarryl Num: [id number] Spec Type: Surgical Subm Dr: Hector Pretty MD Tissues: A Stomach - Biopsy/Polyp (DUOD BX) B Colon Biopsy (RNDM COL BX) C Colon Biopsy (DESC COL POLYP) Procedures: HE/6, Gross/Micro L4/3 Patient: Marcelino Escobar [id number] (Continued) Specimen: [id number] Received: 01/24/23 (Continued) Signed (signatur e on file) Pop Perez MD 01/27/23 1005 Specimen: [id number] Received: 01/24/23 Status: TONY Rosen Num: [id number] Spec Type: Surgical Subm Dr: Hector Pretty MD Tissues: A Stomach - Biopsy/Polyp (DUOD BX) B Colon Biopsy (RNDM COL BX) C Colon Biopsy (DESC COL POLYP) Procedures: HE/Yovanny, Gross/Micro L4/3 Patient: Marcelino Escobar [id number] (Continued) Specimen: [id number] Received: 01/24/23 (Continued) Gross Description A. Received [...] microscopic examination confirms the diagnosis. CPT Codes 13432?3 Specimen: [id number] Received: 01/24/23 Status: TONY Rosen Num: [id number] Spec Type: Surgical Subm Dr: Hector Pretty MD Tissues: A Stomach - Biopsy/Polyp (DUOD BX) B Colon Biopsy (RNDM COL BX) C Colon Biopsy (DESC COL POLYP) Procedures: HE/Yovanny, Janeth/Micro L4/3 Patient: Marcelino Escobar [id number] (Continued) Signed (signatur e on file) Pop Perez MD 01/27/23 1005 Normal [facility] CBC AUTO DIFFon 01-07-2023 BASO # 0.0 103/ul Normal 0.0-0.1 [facility] Comment on above: Performed By: #### C BC #### [facility] [address] [place] [address] Dr. Haley Mays Basophils/100 WBC (Bld) 0.5 % Normal 0.2-2.0 [facility] Comment on above: Performed By: #### C BC #### [facility] [address] [place] [address] Dr. Haley Mays EO # 0.1 103/ul Normal 0.0-0.7 [facility] Comment on above: Performed By: #### C BC #### [facility] [address] [place] [address] Dr. Haley Mays Eosinophils/100 WBC (Bld) 0.8 % Critically low 0.9-7.0 [facility] Comment on above: Performed By: #### C BC #### [facility] [address] [place] [address] Dr. Haley Mays Erythrocyte distribution width (RBC) [Ratio] 12.6 % Normal 11.0-15.0 [facility] Comment on above: Performed By: #### C BC #### [facility] [address] [place] [address] Dr. Haley Mays Hematocrit (Bld) [Volume fraction] 37.7 % Critically low 42.0-54.0 [facility] Comment on above: Performed By: #### C BC #### [facility] [address] [place] [address] Dr. Haley Mays Hemoglobin (Bld) [Mass/Vol] 12.3 g/dL Critically low 14.0-18.0 [facility] Comment on above: Performed By: #### C BC #### [facility] [address] [place] [address] Dr. Haley Mays IG # 0.05 10e3/ul Critically high 0.00-0.03 [facility] Comment on above: Performed By: #### C BC #### [facility] [address] [place] [address] Dr. Haley Mays IG % 0.8 % Critically high 0.0-0.5 [facility] Comment on above: Performed By: #### C BC #### [facility] [address] [place] [address] Dr. Haley Mays LYMPH # 1.5 103/ul Normal 1.2-3.8 [facility] Comment on above: Performed By: #### C BC #### [facility] [address] [place] [address] Dr. Haley Mays Lymphocytes/100 WBC (Bld) 25.0 % Normal 20.5-60.0 [facility] Comment on above: Performed By: #### C BC #### [facility] [address] [place] [address] Dr. Haley Mays MANUAL DIFF REQ NO Normal [facility] Comment on above: Performed By: #### C BC #### [facility] [address] [address] [address] Haley Mays MCH (RBC) [Entitic mass] 31.1 pg Normal 25.9-34.0 [facility] Comment on above: Performed By: #### C BC #### [facility] [address] [place] [address] Dr. Haley Mays MCHC (RBC) [Mass/Vol] 32.6 g/dL Normal 29.9-35.2 [facility] Comment on above: Performed By: #### C BC #### [facility] [address] [place] [address] Dr. Haley Mays MCV (RBC) [Entitic vol] 95.4 fL Critically high 80.0-94 .0 [facility] Comment on above: Performed By: #### C BC #### [facility] [address] [place] [address] Dr. Haley Mays MONO # 0.7 103/ul Normal 0.3-0.8 [facility] Comment on above: Performed By: #### C BC #### [facility] [address] [place] [address] Dr. Haley Mays Monocytes/100 WBC (Bld) 11.3 % Normal 1.7-12.0 [facility] Comment on above: Performed By: #### C BC #### [facility] [address] [place] [address] Dr. Haley Mays NEUT # 3.8 103/ul Normal 1.4-6.5 [facility] Comment on above: Performed By: #### C BC #### [facility] [address] [place] [address] Dr. Haley Mays Neutrophils/100 WBC (Bld) 61.6 % Normal 43.0-75.0 [facility] Comment on above: Performed By: #### C BC #### [facility] [address] [place] [address] Dr. Haley Mays Platelet mean volume (Bld) [Entitic vol] 9.2 fL Critically low 9.5-13.5 [facility] Comment on above: Performed By: #### C BC #### [facility] [address] [place], [place] [address] Dr. Haley Mays PLT 300 103/ul Normal 150-450 [facility] Comment on above: Performed By: #### C BC #### [facility] [address] [place], [place] [address] Dr. Haley Mays RBC 3.95 106/ul Critically low 4.70-6.10 [facility] Comment on above: Performed By: #### C BC #### [facility] [address] [place], [place] [address] Dr. Haley Mays WBC 6.1 103/ul Normal 4.0-11.0 [facility] Comment on above: Performed By: #### C BC #### [facility] [id number] Haley Mays [address] ABD/PELV W CONon [...] COURTNEY GILL Date: 2022-12-25 08:48 Normal [facility] Complete Blood Count and Dif kodak 12-03-2022 Anisocytosis Ql (Bld) Nor [facility] Other Basophilic stippling LM Ql (Bld) [place] [facility] Other RBC morphology finding Nom (Bld) [place] [facility] Other IMMUNOGLOBULIN IGA QUANTITIA VEon 12-03-2022 Immunoglobulin A, Qn, Serum 321 mg/dL Normal 61-437 [facility] Comment on above: Performed By: #### C BC #### [facility] [address] [address] [address] Haley Mays TISSUE TRANSGLUTAMINASE IGGo n 12-03-2022 t-Transglutaminase (tTG) IgG 11 U/mL Critically high 0-5 [facility] Comment on above: Result Comment: Nega tive 0 - 5 Weak Positive 6 - 9 Positive >9 Performed By: #### T RNSIGG #### [facility] [address] [address] [address] Haley Mays TRANSGLUTAMINASE IGAon 12-03 t-Transglutaminase (tTG) IgA >100 Critically high 0-3 [facility] Comment on above: Result Comment: Nega tive 0 - 3 Weak Positive 4 - 10 Positive >10 . Tissue Transglutaminase (tTG) has been identified as the endomysial antigen. Studies have demonstr- ated that endomysial IgA antibodies have over 99% specificity for gluten sensitive enteropathy. Performed By: #### C BC #### [facility] [address] [address] [address] Haley Mays tTG IgA/IgG Transglutaminase on 12-03-2022 tTG IgA/IgG Transglutaminase [facility] [employer] Other Basic Metabolic Panelon - Anion gap [Moles/Vol] 14.2 mmol/L [facility] [employer] Other Comment on above: Performed By: #### B MP #### [facility] [address] [address] [address] Haley Mays Calcium [Mass/Vol] 8.3277719 mg/dL 8.5-10 .1 mg/dL [facility] Other Chloride [Moles/Vol] 110 mmol/L Critically high 98-107 [facility] [employer] Other Comment on above: Performed By: #### B MP #### [facility] [address] [place], [place] [address] Dr. Haley Mays CO2 [Moles/Vol] 26.55105713 mmol/L 21.0-3 2.0 mmol/L [facility] Other Creatinine [Mass/Vol] 1.02366694 mg/dL Critically high 0.70-1.30 mg/dL [facility] Other Potassium [Moles/Vol] 5.65788927 mmol/L Critically hig h 3.5-5.1 mmol/L [facility] Other Urea nitrogen [Mass/Vol] 25.1909424 mg/dL Critically high 7.0-18.0 mg/dL [facility] Other Urea nitrogen/Creatinine [Mass ratio] 18.8 mg/mg Normal [place] [facility] Other Comment on above: Performed By: #### B MP #### [facility] [address] [place], [place] [address] Dr. Haley Mays Basic Metabolic Panel see note Nor [facility] Other Basic Metabolic Panel 145 mmol/L 136-14 5 mmol/L [facility] Other Basic Metabolic Panel 106 mg/dL 74-106 mg/dL [facility] [employer] Other Basic Metabolic Panel 53 mL/min/1.73m2 Critically low >=60 mL/min/1.73m 2 [facility] Other Basic Metabolic Panel >60 mL/min/1.73m2 > =60 mL/min/1.73m 2 [facility] Other CBC AUTO DIFFon 12-02-2022 BASO # 0.0 103/ul Normal 0.0-0.1 [facility] Comment on above: Performed By: #### C BC #### [facility] [address] [place] [address] Dr. Haley Mays Basophils/100 WBC (Bld) 0.3 % Normal 0.2-2.0 [facility] Comment on above: Performed By: #### C BC #### [facility] [address] [place] [address] Dr. Haley Mays EO # 0.1 103/ul Normal 0.0-0.7 [facility] Comment on above: Performed By: #### C BC #### [facility] [address] [place] [address] Dr. Haley Mays Eosinophils/100 WBC (Bld) 1.6 % Normal 0.9-7.0 [facility] Comment on above: Performed By: #### C BC #### [facility] [address] [place] [address] Dr. Haley Mays Erythrocyte distribution width (RBC) [Ratio] 12.9 % Normal 11.0-15.0 [facility] Comment on above: Performed By: #### C BC #### [facility] [address] [place] [address] Dr. Haley Mays Hematocrit (Bld) [Volume fraction] 36.7 % Critically low 42.0-54.0 [facility] Comment on above: Performed By: #### C BC #### [facility] [address] [place] [address] Dr. Haley Mays Hemoglobin (Bld) [Mass/Vol] 11.9 g/dL Critically low 14.0-18.0 [facility] Comment on above: Performed By: #### C BC #### [facility] [address] [place] [address] Dr. Haley Mays IG # 0.07 10e3/ul Critically high 0.00-0.03 [facility] Comment on above: Performed By: #### C BC #### [facility] [address] [place] [address] Dr. Haley Mays IG % 1.2 % Critically high 0.0-0.5 [facility] Comment on above: Performed By: #### C BC #### [facility] [address] [address] [address] Haley Mays LYMPH # 1.4 103/ul Normal 1.2-3.8 [facility] Comment on above: Performed By: #### C BC #### [facility] [address] [place] [address] Dr. Haley Mays Lymphocytes/100 WBC (Bld) 23.4 % Normal 20.5-60.0 [facility] Comment on above: Performed By: #### C BC #### [facility] [address] [place] [address] Dr. Haley Mays MANUAL DIFF REQ NO Normal [facility] Comment on above: Performed By: #### C BC #### [facility] [address] [place] [address] Dr. Haley Mays MCH (RBC) [Entitic mass] 30.7 pg Normal 25.9-34.0 [facility] Comment on above: Performed By: #### C BC #### [facility] [address] [place] [address] Dr. Haley Mays MCHC (RBC) [Mass/Vol] 32.4 g/dL Normal 29.9-35.2 [facility] Comment on above: Performed By: #### C BC #### [facility] [address] [place] [address] Dr. Haley Mays MCV (RBC) [Entitic vol] 94.6 fL Critically high 80.0-94 .0 [facility] Comment on above: Performed By: #### C BC #### [facility] [address] [place] [address] Dr. Haley Mays MONO # 0.7 103/ul Normal 0.3-0.8 [facility] Comment on above: Performed By: #### C BC #### [facility] [address] [place] [address] Dr. Haley Mays Monocytes/100 WBC (Bld) 11.5 % Normal 1.7-12.0 [facility] Comment on above: Performed By: #### C BC #### [facility] [address] [place] [address] Dr. Haley Mays NEUT # 3.8 103/ul Normal 1.4-6.5 [facility] Comment on above: Performed By: #### C BC #### [facility] [address] [place] [address] Dr. Haley Mays Neutrophils/100 WBC (Bld) 62.0 % Normal 43.0-75.0 [facility] Comment on above: Performed By: #### C BC #### [facility] [address] [place] [address] Dr. Haley Mays Platelet mean volume (Bld) [Entitic vol] 9.4 fL Critically low 9.5-13.5 [facility] Comment on above: Performed By: #### C BC #### [facility] [address] [place] [address] Dr. Haley Mays PLT 269 103/ul Normal 150-450 [facility] Comment on above: Performed By: #### C BC #### [facility] [address] [place] [address] Dr. Haley Mays RBC 3.88 106/ul Critically low 4.70-6.10 [facility] Comment on above: Performed By: #### C BC #### [facility] [address] [place] [address] Dr. Haley Mays WBC 6.1 103/ul Normal 4.0-11.0 [facility] Comment on above: Performed By: #### C BC #### [facility] [address] [place] [address] Dr. Haley Mays FERRITINon 12-02-2022 Ferritin [Mass/Vol] 57.0 ng/mL Normal 26.0-388.0 [facility] Comment on above: Performed By: #### C BC #### [facility] [id number] Haley Mays Ferritin [Mass/Vol] 57.0151498 ng/mL 26.0 -388.0 ng/mL [facility] [employer] Other IRON AND TIBCon 12-02-2022 % SATURATION 34.5 % Normal [facility] Comment on above: Performed By: #### C BC #### [facility] [address] [address] [address] Haley Mays Iron [Mass/Vol] 88.0 ug/dL Normal 65.0-175.0 [facility] Comment on above: Performed By: #### C BC #### [facility] [address] [address] [address] Haley Mays TIBC DIRECT 255.0 ug/dL Normal 250.0-450.0 [facility] Comment on above: Performed By: #### C BC #### [facility] [address] [address] [address] Haley Mays Iron [Mass/Vol] 88.1562070 ug/dL 65.0-175 .0 ug/dL [facility] Other IRON AND TIBC 255.0 ug/dL 250.0-450.0 ug/dL [facility] Other IRON AND TIBC 34.5 % [facility] Other PROF CHEM 8 (BAS METB)on Calcium [Mass/Vol] 8.7 mg/dL Normal 8.5-10.1 [facility] Comment on above: Performed By: #### B MP #### [facility] [id number] Haley Mays CO2 [Moles/Vol] 26.0 mmol/L Normal 21.0-32.0 [facility] Comment on above: Performed By: #### B MP #### [facility] [address] [address] [address] Halye Mays Creatinine [Mass/Vol] 1.33 mg/dL Critically high 0.70-1.30 [facility] Comment on above: Performed By: #### B MP #### [facility] [address] [place] [address] Dr. Haley Mays EGFR-AF SUDANESE >60 Normal >=60 [facility] Comment on above: Performed By: #### B MP #### [facility] [address] [address] [address] Haley Mays EGFR-NON AF SUDANESE 53 mL/min/1.73m2 Critically low >=60 [facility] Comment on above: Performed By: #### B MP #### [facility] [address] [place] [address] Dr. Haley Mays Glucose [Mass/Vol] 106 mg/dL Normal 74-106 [facility] Comment on above: Performed By: #### B MP #### [facility] [address] [place] [address] Dr. Haley Mays Potassium [Moles/Vol] 5.2 mmol/L Critically high 3.5-5.1 [facility] Comment on above: Performed By: #### B MP #### [facility] [address] [place] [address] Dr. Haley Mays Sodium [Moles/Vol] 145 mmol/L Normal 136-145 [facility] Comment on above: Performed By: #### B MP #### [facility] [address] [address] [address] Haley Mays Urea nitrogen [Mass/Vol] 25.0 mg/dL Critically high 7.0-18.0 [facility] Comment on above: Performed By: #### B MP #### [facility] [address] [place] [address] Dr. Haley Mays VIT B12 AND FOLATEon 023 FOLATE 19.60 ng/mL Normal 8.60-58.90 [facility] Comment on above: Performed By: #### C BC #### [facility] [address] [place] [address] Dr. Haley Mays Cobalamin (Vitamin B12) [Mass/Vol] pg/mL Critically high 193.0-986.0 [facility] Other Comment on above: Performed By: #### C BC #### [facility] [address] [place] [address] Dr. Haley Mays VIT B12 AND FOLATE 19.60 ng/mL 8.60-58.9 0 ng/mL [facility] Other CBC AUTO DIFFon 09-20-2022 BASO # 0.0 103/ul Normal 0.0-0.1 [facility] Comment on above: Performed By: #### C BC #### [facility] [address] [place] [address] Dr. Haley Mays Basophils/100 WBC (Bld) 0.3 % Normal 0.2-2.0 [facility] Comment on above: Performed By: #### C BC #### [facility] [address] [place] [address] Dr. Haley Mays EO # 0.1 103/ul Normal 0.0-0.7 [facility] Comment on above: Performed By: #### C BC #### [facility] [address] [place] [address] Dr. Haley Mays Eosinophils/100 WBC (Bld) 1.4 % Normal 0.9-7.0 [facility] Comment on above: Performed By: #### C BC #### [facility] [address] [place] [address] Dr. Haley Mays Erythrocyte distribution width (RBC) [Ratio] 12.9 % Normal 11.0-15.0 [facility] Comment on above: Performed By: #### C BC #### [facility] [address] [place] [address] Dr. Haley Mays Hematocrit (Bld) [Volume fraction] 39.5 % Critically low 42.0-54.0 [facility] Comment on above: Performed By: #### C BC #### [facility] [address] [place] [address] Dr. Haley Mays Hemoglobin (Bld) [Mass/Vol] 11.9 g/dL Critically low 14.0-18.0 [facility] Comment on above: Performed By: #### C BC #### [facility] [address] [place] [address] Dr. Haley Mays IG # 0.06 10e3/ul Critically high 0.00-0.03 [facility] Comment on above: Performed By: #### C BC #### [facility] [address] [place] [address] Dr. Haley Mays IG % 0.9 % Critically high 0.0-0.5 [facility] Comment on above: Performed By: #### C BC #### [facility] [address] [place] [address] Dr. Haley Mays LYMPH # 1.7 103/ul Normal 1.2-3.8 [facility] Comment on above: Performed By: #### C BC #### [facility] [address] [place] [address] Dr. Haley Mays Lymphocytes/100 WBC (Bld) 25.6 % Normal 20.5-60.0 [facility] Comment on above: Performed By: #### C BC #### [facility] [address] [place] [address] Dr. Haley Mays MANUAL DIFF REQ NO Normal [facility] Comment on above: Performed By: #### C BC #### [facility] [address] [place] [address] Dr. aHley Mays MCH (RBC) [Entitic mass] 31.4 pg Normal 25.9-34.0 [facility] Comment on above: Performed By: #### C BC #### [facility] [address] [place] [address] Dr. Haley Mays MCHC (RBC) [Mass/Vol] 30.1 g/dL Normal 29.9-35.2 [facility] Comment on above: Performed By: #### C BC #### [facility] [address] [place] [address] Dr. Haley Mays MCV (RBC) [Entitic vol] 104.2 fL Critically high 80.0-94 .0 [facility] Comment on above: Performed By: #### C BC #### [facility] [address] [place] [address] Dr. Haley Mays MONO # 0.9 103/ul Critically high 0.3-0.8 [facility] Comment on above: Performed By: #### C BC #### [facility] [address] [place] [address] Dr. Haley Mays Monocytes/100 WBC (Bld) 14.0 % Critically high 1.7-12. 0 [facility] Comment on above: Performed By: #### C BC #### [facility] [address] [place] [address] Dr. Haley Mays NEUT # 3.7 103/ul Normal 1.4-6.5 [facility] Comment on above: Performed By: #### C BC #### [facility] [address] [place] [address] Dr. Haley Mays Neutrophils/100 WBC (Bld) 57.8 % Normal 43.0-75.0 [facility] Comment on above: Performed By: #### C BC #### [facility] [address] [place] [address] Dr. Haley Mays Platelet mean volume (Bld) [Entitic vol] 9.6 fL Normal 9.5-13.5 [facility] Comment on above: Performed By: #### C BC #### [facility] [address] [place] [address] Dr. Haley Mays PLT 291 103/ul Normal 150-450 [facility] Comment on above: Performed By: #### C BC #### [facility] [address] [place], [place] [id number] Dr. Haley Mays RBC 3.79 106/ul Critically low 4.70-6.10 [facility] Comment on above: Performed By: #### C BC #### [facility] [address] [place] [address] Dr. Haley Mays WBC 6.4 103/ul Normal 4.0-11.0 [facility] Comment on above: Performed By: #### C BC #### [facility] [address] [address] [address] Haley Mays LIPID PROFILEon 09-20-2022 CHOL-HDL RATIO NORM SEE BELOW Normal [facility] Comment on above: Result Comment: 3.3 - 4.4 LOW RISK 4.4 - 7.1 AVERAGE RISK 7.1 - 11.0 MODERATE RISK >11.0 HIGH RISK Performed By: #### L IPID, BMP, ALT #### [facility] [address] [address] [address] Haley Mays Cholesterol [Mass/Vol] 123 mg/dL Normal <=200 [facility] Comment on above: Performed By: #### L IPID, BMP, ALT #### [facility] [address] [address] [address] Haley Mays Cholesterol in HDL [Mass/Vol] 26 mg/dL Critically low 40-60 [facility] Comment on above: Performed By: #### L IPID, BMP, ALT #### [facility] [address] [address] [address] Haley Mays Cholesterol in LDL [Mass/Vol] 57.6 mg/dL Normal [facility] Comment on above: Performed By: #### L IPID, BMP, ALT #### [facility] [address] [address] [address] Haley Mays Cholesterol.total/Tri sterol in HDL [Mass ratio] 4.7 {ratio} Normal [facility] Comment on above: Performed By: #### L IPID, BMP, ALT #### [facility] [address] [address] [address] Haley Mays HDL NORMAL > or = 60 mg/dl - LOW CARDIOVASCULAR RISK <40 mg/dl - HIGH CARDIOVASCULAR RISK Normal [facility] Comment on above: Performed By: #### L IPID, BMP, ALT #### [facility] [address] [address] [address] Haley Mays LDL CALC NORMAL SEE BELOW Normal [facility] Comment on above: Result Comment: <100 mg/dl OPTIMAL 100 - 129 mg/dl NEAR OR ABOVE OPTIMAL 130 - 159 mg/dl BORDERLINE HIGH 160 - 189 mg/dl HIGH >190 mg/dl VERY HIGH Performed By: #### L IPID, BMP, ALT #### [facility] [address] [address] [address] Haley Mays Triglyceride [Mass/Vol] 197 mg/dL Critically high <=150 [facility] Comment on above: Performed By: #### L IPID, BMP, ALT #### [facility] [address] [address] [address] Haley Mays VLDL CALC 39.4 mg/dL Normal [facility] Comment on above: Performed By: #### L IPID, BMP, ALT #### [facility] [address] [place] [address] Dr. Haley Mays PROF CHEM 8 (BAS METB)on Anion gap [Moles/Vol] 13.9 mmol/L Normal [facility] Comment on above: Performed By: #### L IPID, BMP, ALT #### [facility] [address] [place] [address] Dr. Haley Mays Calcium [Mass/Vol] 8.6 mg/dL Normal 8.5-10.1 [facility] Comment on above: Performed By: #### L IPID, BMP, ALT #### [facility] [address] [place] [address] Dr. Haley Mays Chloride [Moles/Vol] 105 mmol/L Normal 98-107 [facility] Comment on above: Performed By: #### L IPID, BMP, ALT #### [facility] [address] [place] [address] Dr. Haley Mays CO2 [Moles/Vol] 25.1 mmol/L Normal 21.0-32.0 [facility] Comment on above: Performed By: #### L IPID, BMP, ALT #### [facility] [address] [place] [address] Dr. Haley Mays Creatinine [Mass/Vol] 1.47 mg/dL Critically high 0.70-1.30 [facility] Comment on above: Performed By: #### L IPID, BMP, ALT #### [facility] [address] [address] [address] Haley Mays EGFR-AF SUDANESE 57 mL/min/1.73m2 Critically low >=60 [facility] Comment on above: Performed By: #### L IPID, BMP, ALT #### [facility] [address] [place] [address] Dr. Haley Mays EGFR-NON AF SUDANESE 47 mL/min/1.73m2 Critically low >=60 [facility] Comment on above: Performed By: #### L IPID, BMP, ALT #### [facility] [address] [place] [address] Dr. Haley Mays Glucose [Mass/Vol] 71 mg/dL Critically low 74-106 [facility] Comment on above: Performed By: #### L IPID, BMP, ALT #### [facility] [address] [place] [address] Dr. Haley Mays Potassium [Moles/Vol] 5.0 mmol/L Normal 3.5-5.1 [facility] Comment on above: Performed By: #### L IPID, BMP, ALT #### [facility] [address] [place] [address] Dr. Haley Mays Sodium [Moles/Vol] 139 mmol/L Normal 136-145 [facility] Comment on above: Performed By: #### L IPID, BMP, ALT #### [facility] [address] [address] [address] Haley Mays Urea nitrogen [Mass/Vol] 27.0 mg/dL Critically high 7.0-18.0 [facility] [facility] Comment on above: Performed By: #### L IPID, BMP, ALT #### [facility] [address] [place] [address] Dr. Haley Mays Urea nitrogen/Creatinine [Mass ratio] 18.4 mg/mg Normal [facility] Comment on above: Performed By: #### L IPID, BMP, ALT #### [facility] [address] [place] [address] Dr. Haley Mays [facility] 09-20-2022 ALT [Catalytic activity/Vol] 37 U/L Normal 16-63 [facility] Comment on above: Performed By: #### L IPID, BMP, ALT #### [facility] [address] [address] [address] Haley Mays Vital Signs Date Time Vital Sign Value Performing Clinician Facility 11-05-2023 11:43-0500 Body height 182.88 cm [facility] 11-05-2023 11:43-0500 Body mass index (BMI) [Ratio] 24.5 kg/m2 [facility] 11-05-2023 11:43-0500 Body weight 82.1 kg [facility] 11-05-2023 11:43-0500 Diastolic blood pressure 83 mm[Hg] [facility] 11-05-2023 11:43-0500 Heart rate 87 /min [facility] 11-05-2023 11:43-0500 Respiratory rate 12 /min [facility] 11-05-2023 11:43-0500 Systolic blood pressure 158 mm[Hg] [facility] 09-19-2023 09:30-0500 Body height 182.88 cm Anirudh Ball Other [facility] 09-19-2023 09:30-0500 Body mass index (BMI) [Ratio] 23.62 kg/m2 Anirudh Ball Other [facility] Other 09-19-2023 09:30-0500 Body weight 79.02 kg Anirudh Ball Other [facility] Other 09-19-2023 09:30-0500 Body weight 79.01 kg [facility] 09-19-2023 09:30-0500 Diastolic blood pressure 80 mm[Hg] Anirudh Ball Other [facility] 09-19-2023 09:30-0500 Respiratory rate 12 /min Anirudh Ball Other [facility] Other 09-19-2023 09:30-0500 Systolic blood pressure 135 mm[Hg] Anirudh Ball Other [facility] 08-20-2023 08:45-0500 Body height 182.88 cm Anirudh Ball Other [facility] 08-20-2023 08:45-0500 Body mass index (BMI) [Ratio] 22.62 kg/m2 Anirudh Ball Other [facility] Other 08-20-2023 08:45-0500 Body weight 75.66 kg Anirudh Ball Other [facility] Other 08-20-2023 08:45-0500 Body weight 75.65 kg [facility] 08-20-2023 08:45-0500 Diastolic blood pressure 93 mm[Hg] Anirudh Ball Other [facility] 08-20-2023 08:45-0500 Respiratory rate 12 /min Anirudh Ball Other [facility] Other 08-20-2023 08:45-0500 Systolic blood pressure 177 mm[Hg] Anirudh Ball Other [facility] 04-17-2023 11:00-0400 Body height 182.88 cm Anirudh Ball Other [facility] Other 04-17-2023 11:00-0400 Body mass index (BMI) [Ratio] 22.51 kg/m2 Anirudh Ball Other [facility] Other 04-17-2023 11:00-0400 Body weight 75.3 kg Anirudh Ball Other [facility] Other 04-17-2023 11:00-0400 Diastolic blood pressure 76 mm[Hg] Anirudh Ball Other [facility] Other 04-17-2023 11:00-0400 Systolic blood pressure 144 mm[Hg] Anirudh Ball Other [facility] Other 04-14-2023 14:00-0400 Body height 182.88 cm Imad Asaad Other [facility] Other 04-14-2023 14:00-0400 Body mass index (BMI) [Ratio] 22.38 kg/m2 Imad Asaad Other [facility] Other 04-14-2023 14:00-0400 Body weight 74.84 kg Imad Asaad Other [facility] Other 04-14-2023 14:00-0400 Diastolic blood pressure 85 mm[Hg] Imad Asaad Other [facility] Other 04-14-2023 14:00-0400 Systolic blood pressure 149 mm[Hg] Imad Asaad Other [facility] Other 02-05-2023 09:30-0400 Body height 182.88 cm Anirudh Ball Other [facility] Other 02-05-2023 09:30-0400 Body mass index (BMI) [Ratio] 20.67 kg/m2 Anirudh Ball Other [facility] Other 02-05-2023 09:30-0400 Body weight 69.13 kg Anirudh Ball Other [facility] Other 02-05-2023 09:30-0400 Diastolic blood pressure 74 mm[Hg] Anirudh Ball Other [facility] Other 02-05-2023 09:30-0400 Respiratory rate 12 /min Anirudh Ball Other [facility] Other 02-05-2023 09:30-0400 Systolic blood pressure 129 mm[Hg] Anirudh Ball Other [facility] Other 01-23-2023 16:15-0400 Diastolic blood pressure 88 mm[Hg] DO Anirudh Ball Work Phone: [facility] 01-23-2023 16:15-0400 Heart rate 68 /min DO Anirudh Ball Work Phone: [facility] 01-23-2023 16:15-0400 Respiratory rate 16 /min DO Anirudh Ball Work Phone: [facility] 01-23-2023 16:15-0400 SaO2% (BldA) [Mass fraction] 99 % DO Anirudh Ball Work Phone: [facility] 01-23-2023 16:15-0400 Systolic blood pressure 128 mm[Hg] DO Anirudh Ball Work Phone: [facility] 01-23-2023 13:44-0400 Body height 180.34 cm DO Anirudh Ball Work Phone: [facility] 01-23-2023 13:44-0400 Body weight 69.39 kg DO Anirudh Ball Work Phone: [facility] 01-06-2023 14:15-0400 Body height 182.88 cm Imad Asaad Other [facility] Other 01-06-2023 14:15-0400 Body mass index (BMI) [Ratio] 21.7 kg/m2 Imad Asaad Other [facility] Other 01-06-2023 14:15-0400 Body weight 72.58 kg Imad Asaad Other [facility] Other 01-06-2023 14:15-0400 Diastolic blood pressure 84 mm[Hg] Imad Asaad Other [facility] Other 01-06-2023 14:15-0400 Systolic blood pressure 150 mm[Hg] Imad Asaad Other [facility] Other 12-18-2022 12:30-0400 Body height 182.88 cm Anirudh Ball Other [facility] Other 12-18-2022 12:30-0400 Body mass index (BMI) [Ratio] 21.62 kg/m2 Anirudh Ball Other [facility] Other 12-18-2022 12:30-0400 Body weight 72.3 kg Anirudh Ball Other [facility] Other 12-18-2022 12:30-0400 Diastolic blood pressure 69 mm[Hg] Anirudh Ball Other [facility] Other 12-18-2022 12:30-0400 Respiratory rate 12 /min Anirudh Ball Other [facility] Other 12-18-2022 12:30-0400 Systolic blood pressure 114 mm[Hg] Anirudh Ball Other [facility] Other 12-02-2022 11:00-0400 Body height 182.88 cm Anirudh Ball Other [facility] Other 12-02-2022 11:00-0400 Body mass index (BMI) [Ratio] 21.64 kg/m2 Anirudh Ball Other [facility] Other 12-02-2022 11:00-0400 Body weight 72.39 kg Anirudh Ball Other [facility] Other 12-02-2022 11:00-0400 Diastolic blood pressure 83 mm[Hg] Anirudh Ball Other [facility] Other 12-02-2022 11:00-0400 Respiratory rate 12 /min Anirudh Ball Other [facility] Other 12-02-2022 11:00-0400 Systolic blood pressure 149 mm[Hg] Anirudh Ball Other [facility] Other 11-25-2022 08:34-0400 Blood Pressure Location Bijan DORAN [facility] 11-25-2022 08:34-0400 Diastolic blood pressure 74 mm[Hg] Bijan DORAN [facility] 11-25-2022 08:34-0400 Heart rate 69 /min Bijan DORAN [facility] 11-25-2022 08:34-0400 Respiratory rate 16 /min Bijan DORAN [facility] 11-25-2022 08:34-0400 Systolic blood pressure 137 mm[Hg] Bijan DORAN [facility] 09-20-2022 09:30-0500 Body height 182.88 cm Anirudh Ball Other [facility] Other 09-20-2022 09:30-0500 Body mass index (BMI) [Ratio] 22.46 kg/m2 Anirudh Ball Other [facility] Other 09-20-2022 09:30-0500 Body weight 75.12 kg Anirudh Ball Other [facility] Other 09-20-2022 09:30-0500 Diastolic blood pressure 62 mm[Hg] Anirudh Wang Other [facility] Other 09-20-2022 09:30-0500 Respiratory rate 12 /min Anirudh Wang Other [facility] Other 09-20-2022 09:30-0500 Systolic blood pressure 118 mm[Hg] Anirudh Wang Other [facility] Other Encounters Encounter Date Encounter Type Care Provider Facility Start: 12-22-2023 ambulatory Bijan Tung Weiss ty:[facility] Start: 11-28-2023 End: 11-28-2023 ambulatory [facility] Work Phone: Start: 11-28-2023 End: 11-28-2023 Patient encounter procedure [facility] Work Phone: Start: 11-05-2023 End: 11-05-2023 Patient encounter procedure [facility] Work Phone: Start: 10-24-2023 End: 10-24-2023 ambulatory [facility] Work Phone: Start: 10-24-2023 End: 10-24-2023 Patient encounter procedure [facility] Work Phone: Start: 09-22-2023 End: 09-22-2023 ambulatory Anirudh Wang Other [facility] Other Start: 09-22-2023 Nursing evaluation o f patient and report Anirudh Wang [facility] Start: 09-19-2023 End: 09-19-2023 ambulatory Anirudh Wang Other [facility] Other Start: 09-19-2023 Office outpatient visit 15 minutes Anirudh Wang [facility] Start: 09-19-2023 End: 09-19-2023 Patient encounter procedure [facility] Work Phone: Start: 08-20-2023 End: 08-20-2023 ambulatory Anirudh Wang Other [facility] Other Start: 08-20-2023 Office outpatient visit 15 minutes Anirudh Wang [facility] Start: 08-20-2023 End: 08-20-2023 Patient encounter procedure [facility] Work Phone: Start: 08-06-2023 End: 08-06-2023 ambulatory Anirudh Wang Other [facility] Other Start: 08-06-2023 Telephone encounter Anirudh Thrasher [facility] Start: 07-28-2023 End: 07-28-2023 ambulatory Anirudh Wang Other [facility] Other Start: 07-28-2023 Telephone encounter Anirudh Thrasher [facility] Start: 07-21-2023 End: 07-21-2023 ambulatory Anirudh Wang Other [facility] Other Start: 07-21-2023 Nursing evaluation o f patient and report Anirudh Wang [facility] Start: 07-14-2023 End: 07-14-2023 ambulatory Anirudh Wang Other [facility] Other Start: 07-14-2023 Telephone encounter Anirudh Thrasher [facility] Start: 05-19-2023 End: 05-19-2023 ambulatory Tricia Isela Other [facility] Other Start: 05-19-2023 Nursing evaluation o f patient and report Tricia Isela [facility] Start: 05-19-2023 Telephone encounter Anirudh Thrasher [facility] Start: 05-16-2023 End: 05-16-2023 ambulatory Imad Asaad Other [facility] Other Start: 05-16-2023 Telephone encounter Imad Asaad [facility] Start: 05-09-2023 End: 05-09-2023 ambulatory Imad Asaad Other [facility] Other Start: 05-09-2023 Telephone encounter Imad Asaad [facility] Start: 05-02-2023 End: 05-02-2023 ambulatory Anirudh Wang Other [facility] Other Start: 05-02-2023 Telephone encounter Anirudh Wang [facility] Start: 04-17-2023 End: 04-17-2023 ambulatory Anirudh Wang Other [facility] Other Start: 04-17-2023 Office outpatient visit 25 minutes Anirudh Felipe [facility] Start: 04-14-2023 End: 04-14-2023 ambulatory Imad Asaad Other [facility] Other Start: 04-14-2023 Office outpatient visit 25 minutes Imad Asaad [facility] Start: 04-10-2023 Telephone encounter Anirudh Wang [facility] Start: 04-10-2023 End: 04-10-2023 ambulatory Anirudh Wang [employer] Other Start: 04-04-2023 End: 04-04-2023 ambulatory Anirudh Wang Other [facility] Other Start: 04-04-2023 Telephone encounter Anirudh Wang [facility] Start: 04-01-2023 End: 04-01-2023 ambulatory Anirudh Wang Other [facility] Other Start: 04-01-2023 Telephone encounter Anirudh Wang [facility] Start: 03-27-2023 End: 03-27-2023 ambulatory Anirudh Wang Facility:[facility] Start: 03-27-2023 End: 03-27-2023 ambulatory DO Anirudh Wang Work Phone: [facility] Work Phone: Start: 03-27-2023 End: 03-27-2023 Patient encounter procedure DO Anirudh Wang Work Phone: [facility] Work Phone: Start: 02-18-2023 End: 02-18-2023 ambulatory Anirudh Wang Other [facility] Other Start: 02-18-2023 Telephone encounter Anirudh Wang FP [facility] Start: 02-10-2023 End: 02-10-2023 ambulatory Anirudh Wang Other [facility] Other Start: 02-10-2023 Nursing evaluation o f patient and report Anirudh Wang [facility] Start: 02-05-2023 End: 02-05-2023 ambulatory Anirudh Wang Other [facility] Other Start: 02-05-2023 Office outpatient visit 15 minutes Anirudh Wang [facility] Start: 02-04-2023 End: 02-04-2023 ambulatory WAI DAUGHERTY Facility:[facility] Start: 01-31-2023 End: 01-31-2023 ambulatory Imad Asaad Other [facility] Other Start: 01-31-2023 Telephone encounter Imad Asaad [facility] Start: 01-23-2023 End: 01-23-2023 ambulatory Imad Asaad Facility:[facility] Start: 01-23-2023 End: 01-23-2023 Admission to same day surgery center DO Anirudh Wang Work Phone: [facility] Work Phone: Start: 01-07-2023 End: 01-08-2023 ambulatory IMAD ASAAD Facility:[facility] Start: 01-06-2023 End: 01-06-2023 ambulatory Imad Asaad Other [facility] Other Start: 01-06-2023 Office outpatient ne w 45 minutes Imad Asaad [facility] Start: 01-02-2023 End: 01-02-2023 ambulatory Anirudh Wang Other [facility] Other Start: 01-02-2023 Nursing evaluation o f patient and report Anirudh Wang [facility] Start: 12-25-2022 Telephone encounter Anirudh Wang MACIEJ [facility] Start: 12-25-2022 End: 12-26-[address] ANIRUDH WANG [facility] Other Start: 12-18-2022 End: 12-18-2022 ambulatory Anirudh Wang Other [facility] Other Start: 12-18-2022 Office outpatient visit 25 minutes Anirudh Wang [facility] Start: 12-13-2022 End: 12-13-2022 ambulatory Anirudh Wang Other [facility] Other Start: 12-13-2022 Telephone encounter Anirudh Wang FP [facility] Start: 12-04-2022 End: 12-04-2022 ambulatory Anirudh Wang Other [facility] Other Start: 12-04-2022 Telephone encounter Anirudh WING [facility] Start: 12-02-2022 End: 12-03-[address] ANIRUDH WANG [facility] Other Start: 12-02-2022 Nursing evaluation o f patient and report Anirudh Wang [facility] Start: 12-02-2022 Office outpatient visit 15 minutes Anirudh Wang [facility] Start: 11-25-2022 End: 11-25-2022 Patient encounter procedure Bijan DORAN [facility] Start: 11-18-2022 End: 11-19-[address] BIJAN DORAN . Facility: Start: 10-31-2022 End: 10-31-2022 ambulatory Anirudh Felipe Other [facility] Other Start: 10-31-2022 Nursing evaluation o f patient and report Anirudh Wang [facility] Start: 10-08-2022 End: 10-08-2022 ambulatory Anirudh Wang Other [facility] Other Start: 10-08-2022 Telephone encounter Anirudh Wang [facility] Start: 09-30-2022 End: 09-30-2022 ambulatory Anirudh Wang Other [facility] Other Start: 09-30-2022 Nursing evaluation o f patient and report Anirudh Wang [facility] Start: 09-27-2022 Encounter for genera l adult medical examination without abnormal findings DR ANIRUDH WANG [facility] Start: 09-27-2022 End: 09-27-2022 ambulatory Anirudh Wang Other [facility] Other Start: 09-27-2022 Telephone encounter Anirudh WING [facility] Start: 09-20-2022 Patient encounter procedure Anirudh Wang [facility] Start: 09-20-2022 End: 09-21-[address] ANIRUDH WANG [facility] Other Start: 09-20-2022 End: 09-21-2022 Encounter for general adult medical examination without abnormal findings DR ANIRUDH WANG Facility: Start: 09-17-2021 Adult health examination Anirudh Wang Other [facility] Other Procedures Date Procedure Procedure Detail Performing Clinician Start: 01-23-2023 Esophagogastroduodenoscopy DO Anirudh Cunningham all Work Phone: Start: 11-18-[address] BIJAN DORAN . Comment on above: Performed By: #### CBC #### [facility] [address] [place] [address] Dr. Haley Mays Start: 01-01-2017 Hyperlipidemia screening Anirudh Wang Other Start: 09-08-2013 Laparoscopic cholecystostomy Bijan ENGLAND Start: 09-08-2011 Colonoscopy Bijan DORAN Start: 09-08-2011 Esophagogastroduodenoscopy gastric outlet reduction Bijan DORAN Start: 09-08-1974 Repair of left inguinal hernia Bijan GRAYSON Depression screening Jona Wang Other Depression screening Jona Wang Other History of operative procedure on knee Bijan DORAN Vasectomy Bijan DORAN Plan of Treatment Date Care Activity Detail Author Start: 01-23-2023 [facility] Patient Education Colon polyps [facility] Work Phone: Immunizations Immunization Date Immunization Notes Care Provider Aurora acosta NEGATED: Highlighted row has not occurred!11-20-2020 influenza virus vaccine, unspecified formulation Bijan DORAN [facility] NEGATED: Highlighted row has not occurred!11-22-2019 influenza virus vaccine, live, attenuated, for intranasal use Bijan DORAN [facility] Payers Date Payer Category Payer Self-pay 1961 Medicare [id number] 1950 Unknown [id number] 3 1948 Unknown [id number] 3 1948 Unknown [id number] 3 1948 Unknown [id number] 3 1948 Unknown [id number] 3 1948 Unknown [id number] 3 1948 Unknown [id number] 7 Private Health Insurance [employer] Mc[employer] PFFS N on Pt [id number] Unknown [id number] 1 Unknown [id number] 1 Unknown [id number] 1 Social History Date Type Detail Facility Sex Assigned At [facility] Start: 11-25-2022 End: 09-19-2023 Tobacco smoking status Never smoked tobacco (finding) [facility] Tobacco smoking status Never [facility] Start: 1950 Sex Assigned At Male [facility] Medical Equipment Procedure Code Equipment Code Equipment Origin al Text Equipment Identifier Dates Repair, hernia, inguinal, with mesh Abdominal hernia surgical mesh, synthetic polymer, non-bioabsorbable [id number] [facility] Start: 04-10-2023 Goals Date Patient Goal Desired Activity /State Functional Status Date Assessment Result Facility 11-25-2022 Functional Status N/A [facility] Clinical Notes 09-20-2022 to 11-28-2023 Note Date & Type Note Facility 11-28-2023 Evaluation note Diagnosis Onset Date Pernicious anemia acute Chronic venous insufficiency of lower extremity acute Primary hypertension acute Stage 3a chronic kidney disease (CKD) [facility] Work Phone: 1(748) 366-764801-15-2024 Evaluation note* Encounter Date Diagnosis Assessment Notes Treatment Notes Treatment Clinical Notes Sep, Pernicious anemia (ICD-10 - D51.0) [facility] Other 01-12-2024 Evaluation note* Encounter Date Diagnosis [...] quality Sep, Pernicious anemia (ICD-10 - D51.0) [facility] Other 12-13-2023 Evaluation note* Encounter Date Diagnosis [...] may cause sedation Recheck in 1 mo [facility] Other 11-20-2023 Evaluation note* Encounter Date Diagnosis Assessment Notes Treatment Notes Treatment Clinical Notes Jul, Primary hypertension (ICD-10 - I10) [facility] Other 11-13-2023 Evaluation note* Encounter Date Diagnosis Assessment Notes Treatment Notes Treatment Clinical Notes Jul, Pernicious anemia (ICD-10 - D51.0) [facility] Other 09-11-2023 Evaluation note* Encounter Date Diagnosis Assessment Notes Treatment Notes Treatment Clinical Notes May, Pernicious anemia (ICD-10 - D51.0) [facility] Other 09-08-2023 Evaluation note* Encounter Date Diagnosis Assessment Notes Treatment Notes Treatment Clinical Notes May, Other osteoporosis without current pathological fracture (ICD-10 - M81.8) [facility] Other 08-10-2023 Evaluation note* Encounter Date Diagnosis [...] softeners for maintenance as well as Metamucil. [facility] Other 08-07-2023 Evaluation note* Encounter Date Diagnosis Assessment Notes Treatment Notes Treatment Clinical Notes Apr, Celiac disease (ICD-10 - K90.0) Patient advised to avoid gluten Apr, Encounter for screening for osteoporosis (ICD-10 - Z13.820) [facility] Other 06-05-2023 Evaluation note* Encounter Date Diagnosis Assessment Notes Treatment Notes Treatment Clinical Notes Feb, Pernicious anemia (ICD-10 - D51.0) [facility] Other 05-31-2023 Evaluation note* Encounter Date Diagnosis Assessment Notes Treatment Notes Treatment Clinical Notes January, Pernicious anemia (ICD-10 - D51.0) Continue monthly B12 injections January, Celiac disease (ICD-10 - K90.0) Continue Gluten free diet f/u GI January, Chronic idiopathic constipation (ICD-10 - K59.04) Miralax and Amitiza didn't help. Using Supp every 72 hours as needed. Push fluids [facility] Other 05-26-2023 Evaluation note* Encounter Date Diagnosis Assessment Notes Treatment Notes Treatment Clinical Notes January, Celiac disease (ICD-10 - K90.0) [facility] Other 05-01-2023 Evaluation note* Encounter Date Diagnosis [...] January, Iron deficiency anemia (ICD-10 - D50.9) [facility] Other 04-27-2023 Evaluation note* Encounter Date Diagnosis Assessment Notes Treatment Notes Treatment Clinical Notes Dec, Pernicious anemia (ICD-10 - D51.0) [facility] Other 04-12-2023 Evaluation note* Encounter Date Diagnosis [...] schedule CT scan to r/o obstructing mass [facility] Other 03-27-2023 Evaluation note* Encounter Date Diagnosis Assessment Notes Treatment Notes Treatment Clinical Notes Nov, Pernicious anemia (ICD-10 - D51.0) [facility] Other 03-27-2023 Evaluation note* Encounter Date Diagnosis [...] adequate fluid balance and to avoid dehydration. [facility] Other 03-20-2023 Hospital Discharge instructions Patient Education [...] urethra. Follow these instructions at home: Take [id number] and prescription medicines only as told by [...] 08/25/2006 Document Revised: 07/20/2019 Document Reviewed: 09/29/2017 [employer] 2020 [employer] Follow Up Care 11/23/2021 08:51:05 With:ANDREEA DIXON, Bijan Ruby, URL Address: [facility] [address] , [place] [address]- When: Unknown [facility] 02-23-2023 Evaluation note* Encounter Date Diagnosis Assessment Notes Treatment Notes Treatment Clinical Notes Oct, Pernicious anemia (ICD-10 - D51.0) [facility] Other 01-23-2023 Evaluation note* Encounter Date Diagnosis Assessment Notes Treatment Notes Treatment Clinical Notes Sep, Pernicious anemia (ICD-10 - D51.0) [facility] Other 01-20-2023 Evaluation note* Encounter Date Diagnosis Assessment Notes Treatment Notes Treatment Clinical Notes Sep, Anemia, unspecified type (ICD-10 - D64.9) [facility] Other 01-13-2023 Evaluation note* Encounter Date Diagnosis Assessment Notes Treatment Notes Treatment Clinical Notes Sep, Essential hypertensi on (ICD-10 - I10) This patient is instructed to consume a healthy, low-fat, low-salt diet. They are also encouraged to continue exercise to achieve/maintain a normal BMI. Sep, Pure hypercholestero lemia (ICD-10 - E78.00) Diet and exercise with continued statin therapy. Sep, Stage 3a chronic kid anabel disease (CKD) [...] High risk medication use (ICD-10 - Z79.899) [facility] Other Evaluation + Plan note Future Appointments Appointment Date:11/28/2023 08:30:00 AM Scheduled Provider:Bijan DORAN MD Location:[facility] Appointment Type:URO Office Visit Diagnostic Tests Pending * PSA Total 11/25/22 [facility] evaluation noteNo InformationNort [employer] Other Evaluation noteNo assessment information available [facility] Work Phone: Hiselvz general Narrative - Reported* Type Description Date [...] CATARACT ECTRACTION, BILATERAL Hospitalization History SEE ABOVE [facility] Other Hisarnk general Narrative - Reported* Type Description Date [...] polypectomy 01/25 23 Hospitalization History SEE ABOVE [facility] Other History general Narrative - [email or web address] Other Hisspjt general Narrative - Reported* Type Description Date [...] inguinal hernia 04/2023 Hospitalization History SEE ABOVE [facility] Other Hisoybk general Narrative - Reported* Type Description Date [...] inguinal hernia 04/2023 Hospitalization History SEE ABOVE [facility] Other Hospital course Narrative No data available for this section [facility] progress note No data available for this section [facility] reason for referral (narrative)* Reason *Waiting for appt Referral to confirm Celiac disease Diagnosis 1 Celiac disease (K90. 0) Referral Organization [facility] Felipe Hussein C linvikram Referring Provider First Name Anirudh Referring Provider Last Name Felipe Referring Provider Specialty Internal Me dicine Referred Organization [facility] Gastroenterolo gy Referred Provider Zeeshan Joe Referred Address [address],[address] Referred Provider Specialty Gastroentero logy Referral Priority Routine General Notes Sanam Guido 11:00:10 AM >RECEIVED TODAY, SENT P2P [facility] Other Summary Purpose Family History No Family History Records Found Relationship Condition Age at Onset Recorded Date/T jj father Carcinoma of peritoneum Unknown Not Specified Hypertension Unknown Relationship Condition Age at Onset Recorded Date/T jj father Carcinoma of peritoneum Unknown Not Specified Hypertension Unknown father Heart disease Unknown Relationship Condition Age at Onset Recorded Date/T jj father Carcinoma of peritoneum Unknown Heart disease Unknown Not Specified Hypertension Unknown Advance Directives No Advanced Directives Records Found Advance Directive Response Recorded Date/ Time Advance Directives nn January 15 3 9:48am Advance Directive Response Recorded Date/ Time Advance Directives nn January 15 3 8:48am Chief Complaint and [...] Follow up -b12Lab ResultsGASTRO CONSULTNo InformationB-12 ShotRefillDEXA [id number] QuestionHigh BP1 month Follow up1 month Follow upB-12 SHOT Patient Care team informatio n (unrecognized section and content) Team Status: Active Member Role Status Dates Anirudh Wang DO Primary Care Provider Active Team Status: Inactive Member Role Status Dates Hector Pretty MD Attending Provider Active Anirudh Wang DO Primary Care Provider Active Team Status: Inactive Member Role Status Renato Wang DO Primary Care Provider Active Ryan Cornell MD Attending Provider Active Team Status: Inactive Member Role Status Dates Anirudh Wang DO Attending Provider Active Sta rt: August 20, 2023 End: August 20, 2023 Team Status: Inactive Member Role Status Renato Wang DO Attending Provider Active Sta rt: September 19, 2023 End: September 19, 2023 Team Status: Inactive Member Role Status Renato Wang DO Primary Care Provide r, Attending Provider Active Start: October 24, 2023 End: October 24, 2023 Team Status: Inactive Member Role Status Renato Wang DO Primary Care Provide r, Attending Provider Active Start: November 05, 2023 End: November 05, 2023 Team Status: Inactive Member Role Status Dates Anirudh Wang DO Primary Care Provide r, Attending Provider Active Start: November 28, 2023 End: November 28, 2023 (unrecognized sect ion and content) No Status Records FoundNo Status Records FoundNo Status Records Found INFORMATION SOURCE (unrecogn ized section and content) DATE CREATED AUTHOR 02/14/2023 [facility] DATE CREATED AUTHOR AUTHOR'S ORGANIZ ATION 04/21/2023 [facility] DATE CREATED AUTHOR AUTHOR'S ORGANIZ ATION 12/11/2023 [facility] Goals (unrecognized section and content) Goals may [...] BE BASED ON THE PRIMARY CLINICAL RECORDS. [facility] [employer] provides no warranty or guarantee of the accuracy or completeness of information in this document.
[2023-12-16 08:41] LABS: Basophils Percent Auto 0.5 % (0.2-2.0); Eosinophils Absolute Auto 0.2 10^3/uL (0.0-0.7); Eosinophils Percent Auto 2.5 % (0.9-7.0); Hematocrit 42.8 % (42.0-54.0); Immature Granulocytes Abs Auto 0.04 10^3/uL (0.00-0.03); Immature Granulocytes Pct Auto 0.7 % (0.0-0.5); Lymphocytes Absolute Auto 1.4 10^3/uL (1.2-3.8); Lymphocytes Percent Auto 23.1 % (20.5-60.0); Mean Corpuscular HGB Conc 32.7 g/dL (29.9-35.2); Mean Corpuscular Volume 94.9 fL (80.0-94.0); Mean Platelet Volume 9.9 fL (9.5-13.5); Monocytes Absolute Auto 0.8 10^3/uL (0.3-0.8); Monocytes Percent Auto 13.3 % (1.7-12.0); Neutrophils Absolute Auto 3.6 10^3/uL (1.4-6.5); Neutrophils Percent Auto 59.9 % (43.0-75.0); Platelet Count 230 10^3/uL (150-450); Red Blood Count 4.51 10^6/uL (4.70-6.10); Red Cell Distribution Width 12.6 % (11.0-15.0); White Blood Count 6.1 10^3/uL (4.0-11.0)
[2023-12-16 08:42] LABS: Bilirubin Urine NEGATIVE (NEGATIVE); Blood Urine NEGATIVE (NEGATIVE); Clarity Urine CLEAR (CLEAR); Color Urine LT. YELLOW (YELLOW); Glucose Urine UA NEGATIVE (NEGATIVE); Ketones Urine NEGATIVE (NEGATIVE); Leukocyte Esterase Urine NEGATIVE (NEGATIVE); Nitrite Urine NEGATIVE (NEGATIVE); Protein Urine NEGATIVE (NEG/TRACE); Specific Gravity Urine <=1.005 (1.005-1.025); Urobilinogen Urine 0.2 EU/dL (0.2-1.0)
[2023-12-17 17:09] LABS: Albumin 4.2 g/dL (2.9-4.4); Alpha-1-Globulin 0.2 g/dL (0.0-0.4); Alpha-2-Globulin 0.7 g/dL (0.4-1.0); Free Kappa Lt Chains,S 39.7 mg/L (3.3-19.4); Free Lambda Lt Chains,S 23.7 mg/L (5.7-26.3); Gamma Globulin 1.1 g/dL (0.4-1.8); Immunoglobulin A, Qn, Serum 143 mg/dL (61-437); Immunoglobulin G, Qn, Serum 1110 mg/dL (603-1613); Immunoglobulin M, Qn, Serum 62 mg/dL (15-143); Kappa/Lambda Ratio,S 1.68 (0.26-1.65); Protein, Total 7.1 g/dL (6.0-8.5)
== END 2023-12-16 07:58 | disposition home or self-care (01) ==
LOC: US 07:57
PROVIDERS: PCP Internal Medicine; Visit Provider Internal Medicine
DX: I12.9 Hypertensive chronic kidney disease with stage 1 through stage 4 chronic kidney disease, or unspecified chronic kidney disease (principal); N18.9 Chronic kidney disease, unspecified; D51.0 Vitamin B12 deficiency anemia due to intrinsic factor deficiency; N18.31 Chronic kidney disease, stage 3a
CPT/HCPCS: 36415; 76775; 81003; 82784; 83521; 84155; 84165; 85025; 86334

== ENCOUNTER 2024-03-19 08:01 | Outpatient (OUT) | payer MEDICARE, SELFPAY ==
[2024-03-19 08:43] LABS: Bilirubin Urine NEGATIVE (NEGATIVE); Blood Urine NEGATIVE (NEGATIVE); Clarity Urine CLEAR (CLEAR); Color Urine YELLOW (YELLOW); Glucose Urine UA NEGATIVE (NEGATIVE); Ketones Urine NEGATIVE (NEGATIVE); Leukocyte Esterase Urine NEGATIVE (NEGATIVE); Nitrite Urine NEGATIVE (NEGATIVE); Protein Urine NEGATIVE (NEG/TRACE); Specific Gravity Urine 1.015 (1.005-1.025); Urobilinogen Urine 0.2 EU/dL (0.2-1.0)
[2024-03-19 08:54] LABS: Bacteria Urine NONE SEEN #/HPF (NONE SEEN); Cast Seen? NONE SEEN #/LPF (NONE SEEN); Crystals Seen? None Seen #/HPF (None Seen); Mucus Urine NONE SEEN (NONE SEEN); RBC Urine 0-2 #/HPF (0-2); Squamous Epithelial Cell Urine NONE SEEN #/LPF (NONE/RARE); WBC Urine 0-2 #/HPF (NONE SEEN)
[2024-03-19 09:05] LABS: Creatinine Urine Random 118.03 mg/dL (20.00-300.00); Protein Creatinine Ratio Urine 0.17
[2024-03-19 09:08] LABS: Albumin Level 3.8 g/dL (3.4-5.0); BUN Creatinine Ratio 16.4; Calcium 8.8 mg/dL (8.5-10.1); Carbon Dioxide 25.8 mmol/L (21.0-32.0); Chloride 105 mmol/L (98-107); Estimated GFR (African America 44 (>=60); Estimated GFR (Non-African Ame 36 (>=60); Glucose 108 mg/dL (74-106); Magnesium 1.9 mg/dL (1.8-2.4); Potassium 4.8 mmol/L (3.5-5.1); Sodium 140 mmol/L (136-145); Uric Acid 7.9 mg/dL (3.5-7.2)
[2024-03-19 10:12] LABS: Hematocrit 42.1 % (42.0-54.0); Hemoglobin 13.7 g/dL (14.0-18.0); Mean Corpuscular HGB Conc 32.5 g/dL (29.9-35.2); Mean Corpuscular Hemoglobin 30.9 pg (25.9-34.0); Mean Platelet Volume 10.6 fL (9.5-13.5); Platelet Count 221 10^3/uL (150-450); Red Blood Count 4.43 10^6/uL (4.70-6.10); Red Cell Distribution Width 12.8 % (11.0-15.0)
[2024-03-21 11:07] LABS: PTH, Intact 41 pg/mL (15-65)
== END 2024-03-19 08:02 | disposition home or self-care (01) ==
LOC: LAB 08:03
PROVIDERS: PCP Internal Medicine; Visit Provider Internal Medicine
DX: N40.1 Benign prostatic hyperplasia with lower urinary tract symptoms (principal); N18.9 Chronic kidney disease, unspecified; I12.9 Hypertensive chronic kidney disease with stage 1 through stage 4 chronic kidney disease, or unspecified chronic kidney disease; H34.8112 Central retinal vein occlusion, right eye, stable; M81.8 Other osteoporosis without current pathological fracture; D51.0 Vitamin B12 deficiency anemia due to intrinsic factor deficiency
CPT/HCPCS: 36415; 80069; 81001; 82306; 82570; 83735; 83970; 84156; 84550; 85027

== ENCOUNTER 2024-06-22 08:24 | Outpatient (OUT) | payer MEDICARE, SELFPAY ==
--- OUTSIDE RECORDS SUMMARY | 2024-06-22 08:39 | XMS_ITS | CCD ---
Author Organization [facility] CliniSymd Care Team Providers Care Integrated Marketing Intern Name Role Phone Anirudh Wang Unavailable ANIRUDH WANG Primary Care Physician Asaad, Imad Unavailable ANDREEA Mcguire, DR STEVENSON Attending Unavailable ANDREEA ., DR STEVENSON Consulting Unavailable ANDREEA ., DR STEVENSON Admitting Unavailable FELIPE, DR CALLAWAY Primary Care Unavailable BALL, DR CALLAWAY Admitting Unavailable FELIPE, DR CALLAWAY Attending Unavailable BALL, DR CALLAWAY Consulting Unavailable FELIPE, DR CALLAWAY Primary Care Unavailable ASAAD, IMCADEN Admitting Unavailable FELIPE, DR CALLAWAY Primary Care Unavailable ASAAD, HECTOR Attending Unavailable SUKHWINDER, HECTOR Consulting Unavailable WAI DAUGHERTY Attending Unavailable WAI DAUGHERTY Admitting Unavailable SHIRA, DR RUSTY Aguilera Consulting Unavailable FELIPE, DR CALLAWAY Primary Care Unavailable WAI DAUGHERTY Consulting Unavailable FELIPE, DR CALLAWAY Admitting Unavailable FELIPE, DR CALLAWAY Attending Unavailable FELIPE, DR CALLAWAY Consulting Unavailable FELIPE, DR CALLAWAY Primary Care Unavailable COURTNEY GILL Consulting Unavailable FELIPE, DR CALLAWAY Admitting Unavailable BALL, DR CALLWAAY Attending Unavailable BALL, DR CALLAWAY Consulting Unavailable FELIPE, DR CALLAWAY Primary Care Unavailable MD Hector Pretty Attending Provider [phone] 1 DO Anirudh Wang Primary Care Provider MD Ryan Cornell Attending Provider Asaad, Imad Attending Unavailable Aniruhd Wang Primary Care Unavailable Sukhwinder, Hector Admitting Unavailable Anirudh Wang Primary Care Unavailable Ryan Cornell Admitting Unavailable Ryan Cornell Attending Unavailable Anirudh Wang Primary Care Unavailable Ryan Cornell Admitting Unavailable Ryan Cornell Attending Unavailable Tricia Weiss Unavailable Bijan VELAZQUEZ Attending Unavailable Bijan VELAZQUEZ Attending Unavailable Igor ShAshkan pratt Attending Unavailable Igor ShAshkan pratt Referring Unavailable Ashkan Pacheco Attending Unavailable Ashkan Pacheco Referring Unavailable Ashkan Pacheco Attending Unavailable Ashkan Pacheco Referring Unavailable Ashkan Pacheco Attending Unavailable Allergies Allergy Classification Reported Allergen(s) Allergy Type Date of Onset Reaction(s) Facility (20 sources) Doxycycline Drug Allergy Unknown [facility] [employer] Other (4 sources) patient allergy list reviewed by nurse or physicia Propensity to adverse reactions Comment:Done [employer] Other (1 source) Doxycycline Drug Allergy Unknown [employer] Other Medications Current Medications Medication Drug Class(es) Dates Sig (Normalized) Sig (Original) amLODIPine 5 mg oral tablet (20 sources) Dihydropyridine Calcium Channel Valdez Start: 11-25-2022 take 5 mg by mouth once daily in the evening Amlodipine Active 5 MG PO Every evening January 23, 2023 12:00am aspirin 81 mg delayed release oral tablet (16 sources) Platelet Aggregation Inhibitor, Nonsteroidal Anti-inflammatory Drug Start: 10-24-2023 take 81 mg by mouth once daily Aspirin Active 81 MG PO Daily October 24, 2023 1:00am take 1 tablet by leidy th every twenty-four hours Aspirin 81 81 MG 1 tablet Orally Once a day Active benazepril hydrochloride 10 mg oral tablet (20 sources) Angiotensin Converting Enzyme Inhibitor Start: 01-23-2023 End: 01-29-2024 take 10 mg by mouth once daily Benazepril Active 10 MG PO Daily 90 90 January 29, 2024 3:40pm Start: 11-11-2019 take 1 mg by mouth once daily benazepril 5 mg oral tablet mg tab(s), Oral, Daily, Refills(s) 0 Start Date: 11/11/19 Status: Ordered calcium carbonate 1500 mg / cholecalciferol 500 unt oral capsule (7 sources) Vitamin D Start: 03-18-2024 take 1 capsule by mouth once daily Calcium Carbonate-Vitamin D3 (Calcium 600 With Vitamin D3) 600 mg-12.5 mcg (500 unit) capsule Active 1 CAP PO daily March 18, 2024 12:00am escitalopram 10 mg oral tablet (20 sources) Serotonin Reuptake Inhibitor Start: 06-14-2024 take 1 tablet by mouth once daily Escitalopram Oxalate Active 0 .ROUTE .COMPLEX 90 June 14, 2024 8:42am TAKE 1 TABLET BY MOUTH EVERY DAY FOR 30 DAYS Start: 05-03-2024 End: 06-14-2024 take 10 mg by mouth once daily Escitalopram Oxalate Di scontinued 10 MG PO Daily May 03, 2024 9:45am June 14, 2024 8:43am Start: 12-22-2023 escitalopram 1 0 mg Tab Refills(s) 0 Start Date: 12/22/23 Status: Ordered Start: 12-15-2023 End: 05-03-2024 take 1 tablet by mouth once daily Escitalopram Oxalate Discontinued 0 .ROUTE .COMPLEX 90 December 15, 2023 7:28pm May 03, 2024 9:45am TAKE 1 TABLET BY MOUTH EVERY DAY FOR 30 DAYS Start: 10-24-2023 End: 12-15-2023 take 1 tablet by mouth once daily Escitalopram Oxalate Discontinued 10 MG PO Daily October 24, 2023 1:00am December 15, 2023 7:29pm [employer] tablet Orally Once a day; Note: Source Status: Taking; Refills: 5; Provider: Felipe Her Start: 08-20-2023 take 1 tablet by leidy th every twenty-four hours Escitalopram Oxalate 10 MG 1 tablet Orally Once a day for 30 days Aug, Active indomethacin 50 mg oral capsule (20 sources) Nonsteroidal Anti-inflammatory Drug take 1 capsule by mouth every twelve hours Indomethacin 50 MG 1 capsule with food or milk Orally Twice a day Active lubiprostone 0.008 mg oral capsule (7 sources) Chloride Channel Activator Start: 023 take 1 capsule by mouth twice daily at mealtime Lubiprostone 8 MCG 1 capsule with food and water Orally Twice a day for 30 days January, Active MiraLax 17 GM/SCOOP (12 sources) Start: 023 Start: 12-18-2022 take 17 g by mouth once daily MiraLax 17 GM/SCOOP as directed Orally Once a day for 30 days Dec, Active polysaccharide iron complex 150 mg oral capsule (5 sources) Start: 09-27-2022 take 1 capsule by mouth every twenty-four hours Ferrex 150 150 MG 1 capsule Orally Once a day for 90 days 20 Virgil, 2023 Active Psyllium (16 sources) Start: 12-02-2022 Start: 12-02-2022 Metamucil 28 % 1 packet with 8 ounces of liquid as needed Orally Once a day for 30 days Nov, Active tamsulosin hydrochloride 0.4 mg oral capsule (20 sources) alpha-Adrenergic Valdez Start: 05-03-2024 take 0.4 mg by mouth once daily at bedtime Tamsulosin Active 0.4 MG PO Daily at bedtime 90 90 May 03, 2024 12:00am Start: 11-25-2022 End: 03-18-2024 take 1 capsule by mouth once daily Tamsulosin (Flomax) 0.4 mg capsule Discontinued 0.4 MG PO Daily October 24, 2023 1:00am March 18, 2024 2:26pm vitamin B12 (2 sources) Vitamin B12 Start: 11-22-2019 Vitamin B12 Re fills(s) 0 Start Date: 11/22/19 Status: Ordered Vitamin D (2 sources) Start: 11-20-2020 Vitamin D Inte rnational_Unit, Oral, Daily, Refills(s) 0 Start Date: 11/20/20 Status: Ordered Completed/Discontinued Medications Medication Drug Class(es) Dates Sig (Normalized) Sig (Original) acetaminophen 325 mg / HYDROcodone bitartrate 5 mg oral tablet (13 sources) Opioid Agonist Start: 04-10-2023 End: 10-24-2023 take 1 tablet by mouth every six hours Hydrocodone-Acetami nophen Discontinued 1 TAB PO Q6H 20 5 April 10, 2023 October 24, 2023 10:55am alendronic acid 70 mg oral tablet (20 sources) Bisphosphonate Start: 10-24-2023 End: 03-18-2024 Alendronate Discontinued 70 MG PO Daily October 24, 2023 1:00am March 18, 2024 2:26pm 1 tablet 30 minutes before the first [...] a day for 30 days May, Active B-12 - up to 1000 mcg (20 sources) Start: 09-22-2023 B-12 - up to 1 000 mcg Sep, 1000 mcg Start: 08-20-2023 B-12 [...] 1000 mcg cholecalciferol 0.025 mg oral tablet (14 sources) Vitamin D Start: 03-27-2023 End: 10-24-2023 take 1 tablet by mouth once daily Cholecalciferol (Vitamin D3) (Vitamin D3) 25 mcg (1,000 unit) Tablet Discontinued 1000 UNIT PO Daily March 27, 2023 12:00am October 24, 2023 10:54am Cyanocobalamin (Vitamin B-12) (Vitamin B-12) 100 mcg/mL Solution (14 sources) Start: 03-27-2023 End: 10-24-2023 Cyanocobalamin (Vitamin [...] shot once a month, unaware of dosage folic acid 1 mg oral tablet (20 sources) Start: 09-27-2022 End: 01-29-2024 take 1 mg by mouth once daily Folic Acid Discontinued 1 MG PO Daily January 23, 2023 12:00am January 29, 2024 3:40pm Start: 11-22-2019 take 1 tablet by leidy th once daily folic acid 0.4 mg Tab 0.4 mg = 1 tab(s), Oral, Daily, # 100 tab(s), Refills(s) 0 Start Date: 11/22/19 Status: Ordered LORazepam 0.5 mg oral tablet (20 sources) Benzodiazepine Start: 10-24-2023 End: 03-18-2024 take 0.5 mg by mouth every six hours Lorazepam Discontinued 0.5 MG PO Every 6 hours 60 30 January 01, 2024 9:55am March 18, 2024 2:26pm Start: 08-20-2023 take 0.5-1 tablets b y mouth every six hours as needed for anxiety LORazepam 0.5 MG 1/2 - 1 tablet Orally every 6 hours as needed for anxiety for 30 days Aug, Active Problems Active Problems Problem Classification Problem Date Documented Da te Episodic/Chronic Abdominal hernia (20 sources) Left inguinal hernia ; Translations: [Unilateral inguinal hernia, without obstruction or gangrene, not specified as recurrent] Onset: 04-10-2023 12-22-2020 Episodic Abdominal pain (18 sources) Left lower quadrant pain; Translations: [Left lower quadrant pain] Onset: 12-25-2022 Resolved: 01-03-2021 12-22-2020 Episodic Acute and unspecified renal failure (20 sources) Acute injury of kidney; Translations: [Acute renal failure syndrome] Resolved: 09-18-2021 12-18-2020 Episodic Allergic reactions (11 sources) Allergic contact dermatitis caused by chemical; Translations: [Allergic contact dermatitis due to other chemical products] Episodic Anxiety disorders (20 sources) Generalized anxiety disorder; Translations: [Generalized anxiety disorder] Chronic Biliary tract disease (20 sources) Biliary dyskinesia; Translations: [Other specified diseases of gallbladder] 12-18-2020 Episodic Cataract (2 sources) Age-related nuclear cataract, left eye; Translations: [Presence of intraocular lens] Onset: 05-31-2024 Chronic Chronic kidney disease (20 sources) Chronic kidney disease stage 3A ; Translations: [Stage 3a chronic kidney disease (CKD)] 11-05-2023 Chronic Deficiency and other anemia (20 sources) Iron deficiency anemia; Translations: [Iron deficiency anemia, unspecified] Onset: 11-10-2017 Episodic Deficiency and other anemia (20 sources) Pernicious anemia; Translations: [Vitamin B12 deficiency anemia due to intrinsic factor deficiency] 12-18-2020 Episodic Deficiency and other anemia (20 sources) Vitamin B12 deficiency anemia due to intrinsic factor deficiency; Translations: [Pernicious anemia] Episodic Deficiency and other anemia (3 sources) Anemia, unspecified; Translations: [ANEMIA UNSPECIFIED] Onset: 12-05-2022 Episodic Deficiency and other anemia (13 sources) Megaloblastic anemia due to poor nutrition; Translations: [Dietary folate deficiency anemia] Resolved: 09-18-2021 12-18-2020 Episodic Deficiency and other anemia (12 sources) Nutritional anemia; Translations: [Nutritional anemia, unspecified] [...] 09-27-2022 Chronic Genitourinary symptoms and ill-defined conditions (2 sources) Urge incontinence of urine 11-22-2019 Chronic Genitourinary [...] kidney disease, or unspecified chronic kidney disease] 03-18-2024 Chronic Malaise and fatigue (20 sources) Malaise; Translations: [Other malaise] Onset: 01-01-2017 Episodic Nephritis; nephrosis; renal sclerosis (2 sources) Atrophy of kidney; Translations: [Atrophy of kidney (terminal)] Onset: 12-22-2023 Chronic Nonspecific chest pain (20 sources) Chest pain; Translations: [Other chest pain] Episodic Nutritional deficiencies (10 sources) Vitamin D deficiency; Translations: [Vitamin D deficiency, unspecified] 04-03-2024 Chronic Osteoporosis (20 sources) Osteoporosis; Translations: [Other osteoporosis without current pathological fracture] Chronic Other aftercare (2 sources) Other buttermaker continuous churn (current) drug therapy; Translations: [OTH GROUP HOME CURRENT DRUG THERAPY] Onset: 02-05-2023 Episodic Other diseases of veins and lymphatics (12 sources) Venous insufficiency of leg; Translations: [Venous insufficiency (chronic) (peripheral)] 11-05-2023 Episodic Other diseases of veins and lymphatics (12 sources) Venous insufficiency (chronic) (peripheral); Translations: [Venous (peripheral) [...] Bilateral tinnitus; Translations: [Tinnitus, bilateral] Episodic Other ear and sense organ disorders (6 sources) Tinnitus; Translations: [Unspecified tinnitus] Onset: 09-06-2016 12-18-2020 Episodic Comment on above: Bilateral Other eye disorders (1 source) Unspecified ptosis of bilateral eyelids; Translations: [Ptosis, bilateral] Onset: 04-30-2024 Episodic Other gastrointestinal disorders (20 sources) Celiac disease; Translations: [Celiac disease] Onset: 12-02-2022 11-22-2019 Chronic Other gastrointestinal disorders (19 sources) Celiac disease; Translations: [Celiac disease] Onset: 12-05-2022 Chronic Other gastrointestinal disorders (20 [...] Translations: [Constipation, unspecified] Episodic Other gastrointestinal disorders (2 sources) Alteration in bowel elimination 12-22-2020 Episodic Other [...] lung field] Episodic Other nervous system disorders (13 sources) Acute postoperative pain; Translations: [Other acute [...] [Encounter for screening for depression] Episodic Unclassified (2 sources) Body mass index 20-24 - normal 12-19-2020 [...] Classification Problem Date Documented Da te Episodic/Chronic Bacterial infection; unspecified site (3 sources) Bacterial infectious disease; Translations: [Bacterial infection, unspecified, in conditions classified elsewhere and of unspecified site] Onset: 09-06-2016 Episodic Chronic kidney disease (4 sources) Chronic kidney disease; Translations: [CHRONIC KIDNEY DISEASE STAGE 3A] Onset: 12-05-2022 Headache; including migraine (10 sources) Headache; Translations: [...] diagnosis of hypertension] Onset: 01-01-2017 Episodic Other gastrointestinal disorders (15 sources) Diarrhea; Translations: [...] Test Name Value Interpretation Reference Range Facility Erythrocyte distribution wid th Auto (RBC) [Ratio]on 03-19-2024 Erythrocyte distribution width (RBC) [Ratio] 12.8 % 11.0-15.0 [facility] Estimated glomerular filtrat ion rate (GFR) non- Americanon 03-19-2024 GFR/1.73 sq M.predicted among non-blacks MDRD (S/P/Bld) [Vol rate/Area] 36 mL/min/{1.73_m2} Low >=60 [facility] Hematocrit Auto (Bld) [Volum e fraction]on 03-19-2024 Hematocrit (Bld) [Volume fraction] 42.1 % 42.0-54.0 [facility] Hemoglobin [Mass/volume] in Bloodon 03-19-2024 Hemoglobin (Bld) [Mass/Vol] 13.7 g/dL Low 14.0-18.0 [facility] Laboratory - Chemistry and C hemistry - challengeon 03-19-2024 Albumin [Mass/Vol] 3.8 g/dL 3.4-5.0 [facility] Calcium [Mass/Vol] 8.8 mg/dL 8.5-10.1 [facility] Chloride [Moles/Vol] 105 mmol/L 98-107 [facility] CO2 [Moles/Vol] 25.8 mmol/L 21.0-32.0 [facility] Creatinine [Mass/Vol] 1.83 mg/dL High 0.70-1.30 [facility] GFR/1.73 sq M.predicted MDRD (S/P/Bld) [Vol rate/Area] 44 mL/min/{1.73_m2} Low >=60 [facility] Glucose [Mass/Vol] 108 mg/dL High 74-106 [facility] Magnesium [Mass/Vol] 1.9 mg/dL 1.8-2.4 [facility] Potassium [Moles/Vol] 4.8 mmol/L 3.5-5.1 [facility] Sodium [Moles/Vol] 140 mmol/L 136-145 [facility] Urate [Mass/Vol] 7.9 mg/dL High 3.5-7.2 [facility] Urea nitrogen [Mass/Vol] 30.0 mg/dL High 7.0-18.0 [facility] Urea nitrogen/Creatinine [Mass ratio] 16.4 mg/mg [facility] Bilirubin Ql (U) Negative NEGATIVE [facility] Glucose (U) [Mass/Vol] Negative NEGATIVE [facility] Ketones Ql (U) Negative NEGATIVE [facility] pH (U) 6.0 [pH] 5.0-9.0 [facility] Specific gravity (U) [Rel density] 1.015 1.005-1.025 [facility] Urobilinogen Qn (U) 0.2 {Aimee'U}/dL 0.2-1.0 [facility] Laboratory - Specimen inform ationon 03-19-2024 Appearance (U) CLEAR CLEAR [facility] Color (U) YELLOW YELLOW [facility] Laboratory - Urinalysison Leukocyte esterase Test strip Ql (U) Negative NEGATIVE [facility] Mucus Ql (Urine sed) NONE SEEN NONE SEEN [facility] Nitrite Ql (U) Negative NEGATIVE [facility] Protein (U) [Mass/Vol] 20.0 mg/dL High <=11.9 [facility] Protein Ql (U) Negative NEG/TRACE [facility] Leukocytes [#/volume] correc denis for nucleated erythrocytes in Blood by Automated counon 03-19-2024 WBC corrected for nucl RBC Auto (Bld) [#/Vol] 5.0 10 3/uL 4.0-11.0 [facility] MCH Auto (RBC) [Entitic mass ]on 03-19-2024 MCH (RBC) [Entitic mass] 30.9 pg 25.9-34.0 [facility] MCHC Auto (RBC) [Mass/Vol]on 03-19-2024 MCHC (RBC) [Mass/Vol] 32.5 g/dL 29.9-35.2 [facility] MCV Auto (RBC) [Entitic vol] on 03-19-2024 MCV (RBC) [Entitic vol] 95.0 fL High 80.0-94.0 [facility] No Panel Informationon 03-19 25-Hydroxy Vitamin D Total 52.4 ng/mL [facility] Comment on above: <20 ng/mL Vit D defi cient20-<30 ng/mL Vit D xequvosdasyc86-788 ng/mL Vit D sufficient>100 ng/mL Potential Toxicity Parathyroid Hormone (Intact) 41 pg/mL 15-65 [facility] Comment on above: Performed at: - [facility] [address] [id number] Director: Vinny Alexander PhD, Phone: [phone] Phosphorus Level 3.0 mg/dL 2.6-4.7 [facility] Urine Bacteria NONE SEEN #/HPF NONE SEEN [facility] Urine Occult Blood Negative NEGATIVE [facility] Urine Other Casts NONE SEEN #/LPF NONE SEEN [facility] Urine Other Crystals None Seen #/HPF None Seen [facility] Urine Random Creatinine 118.03 mg/dL 20.0 0-300.0 0 [facility] Urine RBC 0-2 #/HPF 0-2 [facility] Urine Squamous Epithelial Cells NONE SEEN #/LPF NONE/RARE [facility] Urine WBC 0-2 #/HPF Abnormal NONE SEEN [facility] Platelet mean volume Auto (B ld) [Entitic vol]on 03-19-2024 Platelet mean volume (Bld) [Entitic vol] 10.6 fL 9.5-13.5 [facility] Platelets Auto (Bld) [#/Vol] on 03-19-2024 Platelets (Bld) [#/Vol] 221 10 3/uL 150-450 [facility] RBC Auto (Bld) [#/Vol]on RBC (Bld) [#/Vol] 4.43 10 6/uL Low 4.70-6.10 [facility] Serum or plasma anion gap de terminationon 03-19-2024 Anion gap [Moles/Vol] 14.0 mmol/L [facility] Urine protein/creatinine rat ioon 03-19-2024 Protein/Creatinine (U) [Ratio] 0.17 [facility] Lab Reportson 12-30-2023 Lab Reports [id number]# 1.00TIFF Normal [facility] RAD - MISCon 12-24-2023 RAD - MISC [id number]#1 .00TIFF Normal [facility] Patient Educationon 12-22-19 Patient Education Urology Benign Prostatic Hyperplasia Benign prostatic hyperplasia (BPH) is an enlarged prostate gland that is caused by the normal aging process. The prostate may get bigger as a man gets older. The condition is not caused by cancer. The prostate is a walnut-sized gland that is involved in the production of semen. It is located in front of the rectum and below the bladder. The bladder stores urine. The urethra carries stored urine out of the body. An enlarged prostate can press on the urethra. This can make it harder to pass urine. The buildup of urine in the bladder can cause infection. Back pressure and infection may progress to bladder damage and kidney (renal) failure. What are the causes? This condition is part of the normal aging process. However, not all men develop problems from this condition. If the prostate enlarges away from the urethra, urine flow will not be blocked. If it enlarges toward the urethra and compresses it, there will be problems passing urine. What increases the risk? This condition is more likely to develop in men older than 50 years. What are the signs or [...] Follow these instructions at home: ? Take [id number] and prescription medicines only as told by your health care provider. ? Monitor your symptoms for any changes. Contact your health care provider with any changes. ? Avoid drinking large amounts of liquid before going to bed or out in public. ? Avoid or reduce how much caffeine or alcohol you drink. ? Give yourself time when you urinate. ? Keep all follow-up visits. This is important. Contact a health care provider if: ? You have unexplained back pain. ? Your symptoms do not get better with treatment. ? You develop side effects from the medicine (more content not included)... Normal [facility] Urology Office/Clinic Noteon 12-22-2023 Urology Office/Clinic Note Chief Complaint BPH wiuth obstruction HPI Staff 1 year with PSA and TERRY Dx: BPH with urinary obstruction Tamsulosin 0.4mg qd (PCP manages) PSA done 12/09/23 is 1.96 Dysuria: no Incomplete bladder emptying: no Hematuria: no Frequency: no Urgency: _ Nocturia: _ Stream: good steady stream no straining Leaking: no Post void dripping: no Wearing pads/ Depends: no Urge incontinence: no Stress incontinence: no Incontinence without Sensory Awareness: no Abdominal pain: no Flank pain: _ Sexual complaints: no History of Present Illness Tests reviewed: reviewed UA, PSA, ROBERT, labs I have reviewed the previous health record information and history for this patient from Dr. Velazquez. I have reviewed and verified the staff HPI to be accurate for this encounter. Review of Systems PHQ Score Initial Depression Screen Score: 0 SCORE ROS - Provider Constitutional: denies weight loss, denies hot flashes. Eyes: denies eye problems. Gastrointestinal: denies nausea, denies vomiting. Cardiovascular: denies chest pain or angina. Integumentary: no dryness Musculoskeletal: denies musculoskeletal symptoms. ENMT: denies otolaryngeal symptoms. Respiratory: no shortness of breath. Heme/Lymph: denies easy bleeding tendency, denies easy bruising tendency. Psychiatric: no confusion, no anxiety. Genitourinary: See HPI. Physical Exam Vitals & Measurements T: 37 ?C(Temporal Artery) HR: 75(Peripheral) RR: 16 BP: 138/87 HT: 71 in HT: 180 cm WT: 76.7 kg WT: 168.74 lb BMI: 23.67 General Appearance: alert, no distress, well nourished, well developed male. Genitourinary: normal scrotum, normal testes, normal urethra, normal epididymis, normal vas deferens/spermatic cord. Flank Pain: none. Bladder: nonpalpable. Assessment/Plan 1. BPH with urinary obstruction (N40.1: Benign prostatic hyperplasia with lower urinary tract symptoms) PSA: 11/08/20 - 1.43 11/14/21 - 1.60 11/18/22 - 1.16 12/09/23 - 1.96 PSA has increased from prior. Re-discussed stopping PSA checks due to advancing age. Pt still wishes to monitor. UA today negative for blood and infection. Taking Tamsulosin 0.4mg qd per PCP. Not voicing any urinary habit complaints. -PSA in 1 year -Cont Tamsulosin as above 2. Renal atrophy (N26.1: Atrophy of kidney (terminal)) ROBERT 12/16/23 [facility] (ordered by Dr. Wang due to CKD) - bilateral renal cortical atrophy with increased cortical echotexture suggests medical renal disease. 12/10/23 - BUN 29. Cr 2.02. eGFR 32. Pt recently had blood work and imaging done per PCP and was concerned since he had not heard of results. Advised pt of ROBERT findings. Recommended pt to call PCP's office to obtain results and discuss next steps. Counseled pt on possible referral to nephrology. Follow-up With When Contact Information ANDREEA DIXON, Bijan Ruby, [facility] [address], [place] [address]- [phone] Additional Instructions: 1 yr w/ PSA Patient Education Benign Prostatic Hyperplasia I, Anita Magana, personally scribed for Dr. Velazquez on 12/22/2023 15:19:46. . Documentation recorded by the scribe, Anita Magana, accurately reflects the services(s) I performed and decisions made by me. Authenticated by Dr. Velazquez on 12/22/2023 15:22:28. Problem List/Past Medical History Ongoing Abdominal pain, left lower quadrant BMI 23.0-23.9, adult BPH with urinary obstruction Celiac disease Constipation in male Hypertension Left inguinal hernia Renal atrophy Urge incontinence Historical Acute injury of kidney Biliary dyskinesia Dietary folate deficiency anemia Nutritional anemia Pernicious anemia Retinal vein occlusion Sensorineural hearing loss Tinnitus Procedure/Surgical History Laparoscopic cholecystostomy (09/08/2013), Colonoscopy (09/08/2011), EGD (esophagogastroduoden oscopy) gastric outlet reduction (09/08/2011), Repair of left inguinal hernia (09/08/1974), History of knee surgery, vasectomy. Medications amLODIPine 5 mg Tab aspirin 81 mg Oral EC Tab, Oral, Daily benazepril 5 mg oral tablet, Oral, Daily escitalopram 10 mg Tab folic acid 0.4 mg Tab, 0.4 mg= 1 tab(s), Oral, Daily LORazepam 0.5 mg Tab tamsulosin 0.4 mg Cap Vitamin B12 Vitamin D, Oral, Daily Allergies No Known Allergies Social History Tobacco - No Risk, 12/18/2020 Never (less than 100 in lifetime) Tobacco Use:. Never Smokeless Tobacco Use:. Household tobacco concerns: No., 12/22/2023 Family History Metastatic cancer: Father. Parkinson disease: Mother. Immunizations Vaccine Date Status Comments influenza virus vaccine, inactivated - Not Given Patient Refuses influenza virus vaccine, live, trivalent - Not Given Patient Refuses Lab Results Ambulatory Point of Care Results Bilirubin Urine Dipstick: Negative (12/22/23 14:11:00) Blood Urine Dipstick: Negative (12/22/23 14:11:00) Glucose Urine Dipstick: Negative (12/22/23 (more content not included)... Normal [facility] Comment on above: Result Comment: Elec tronically Signed By: Bijan VELAZQUEZ MD\.br\Date and Time Signed: 12/22/23 15:22 EDT\.br\Electronically Co-Signed By: Anita Magana.br\Date and Time Co-Signed: 12/22/23 15:20 EDT Albumin [Mass/volume] in Ser um or Plasmaon 12-16-2023 Albumin [Mass/Vol] 4.2 g/dL 2.9-4.4 [facility] Automated urine specific gra vity by refractometryon 12-16-2023 Specific gravity Refractometry automated (U) [Rel density] <=1.005 Abnormal 1.005-1.025 [facility] Basophils Auto (Bld) [#/Vol] on 12-16-2023 Basophils (Bld) [#/Vol] 0.0 10 3/uL 0.0-0.1 [facility] Basophils/100 WBC Auto (Bld) on 12-16-2023 Basophils/100 WBC (Bld) 0.5 % 0.2-2.0 [facility] Bilirubin Auto test strip (U ) [Mass/Vol]on 12-16-2023 Bilirubin (U) [Mass/Vol] Negative NEGATIVE [facility] Color Auto (U)on 12-16-2023 Color (U) LT. YELLOW YELLOW [facility] Eosinophils/100 WBC Auto (Bl d)on 12-16-2023 Eosinophils/100 WBC (Bld) 2.5 % 0.9-7.0 [facility] Erythrocyte distribution wid th Auto (RBC) [Ratio]on 12-16-2023 Erythrocyte distribution width (RBC) [Ratio] 12.6 % 11.0-15.0 [facility] Hematocrit Auto (Bld) [Volum e fraction]on 12-16-2023 Hematocrit (Bld) [Volume fraction] 42.8 % 42.0-54.0 [facility] Hemoglobin [Mass/volume] in Bloodon 12-16-2023 Hemoglobin (Bld) [Mass/Vol] 14.0 g/dL 14.0-18.0 [facility] IgA [Mass/volume] in Serum o r Plasmaon 12-16-2023 IgA [Mass/Vol] 143 mg/dL 61-437 [facility] IgG [Mass/volume] in Serum o r Plasmaon 12-16-2023 IgG [Mass/Vol] 1110 mg/dL 603-1613 [facility] IgM [Mass/volume] in Serum o r Plasmaon 12-16-2023 IgM [Mass/Vol] 62 mg/dL 15-143 [facility] Immunoglobulin light chains. kappa.free [Mass/volume] in Serumon 12-16-2023 Immunoglobulin light chains.kappa.free (S) [Mass/Vol] 39.7 mg/L Abnormal 3.3-19.4 [facility] Immunoglobulin light chains. kappa.free/Immunoglobulin light chains.lambda.free [Kassy 12-16-2023 Immunoglobulin light chains.kappa.free/Immun oglobulin light chains.lambda.free (S) [Mass ratio] 1.68 Abnormal 0.26-1.65 [facility] Comment on above: Performed at: [address] [id number] Director: Vinny Alexander PhD, Phone: [phone] Immunoglobulin light chains. lambda.free [Mass/volume] in Serum or Plasmaon 12-16-2023 Immunoglobulin light chains.lambda.free [Mass/Vol] 23.7 mg/L 5.7-26.3 [facility] Ketones Auto test strip (U) [Mass/Vol]on 12-16-2023 Ketones (U) [Mass/Vol] Negative NEGATIVE [facility] - Hematology and Cell countson 12-16-2023 Immature granulocytes/100 WBC (Bld) 0.7 % High 0.0-0.5 [facility] Leukocytes [#/volume] correc denis for nucleated erythrocytes in Blood by Automated counon 12-16-2023 WBC corrected for nucl RBC Auto (Bld) [#/Vol] 6.1 10 3/uL 4.0-11.0 [facility] Lymphocytes Auto (Bld) [#/Vo l]on 12-16-2023 Lymphocytes (Bld) [#/Vol] 1.4 10 3/uL 1.2-3.8 [facility] Lymphocytes/100 WBC Auto (Bl d)on 12-16-2023 Lymphocytes/100 WBC (Bld) 23.1 % 20.5-60.0 [facility] MCH Auto (RBC) [Entitic mass ]on 12-16-2023 MCH (RBC) [Entitic mass] 31.0 pg 25.9-34.0 [facility] MCHC Auto (RBC) [Mass/Vol]on 12-16-2023 MCHC (RBC) [Mass/Vol] 32.7 g/dL 29.9-35.2 [facility] MCV Auto (RBC) [Entitic vol] on 12-16-2023 MCV (RBC) [Entitic vol] 94.9 fL High 80.0-94.0 [facility] Monocytes Auto (Bld) [#/Vol] on 12-16-2023 Monocytes (Bld) [#/Vol] 0.8 10 3/uL 0.3-0.8 [facility] Monocytes/100 WBC Auto (Bld) on 12-16-2023 Monocytes/100 WBC (Bld) 13.3 % High 1.7-12.0 [facility] Neutrophils Auto (Bld) [#/Vo l]on 12-16-2023 Neutrophils (Bld) [#/Vol] 3.6 10 3/uL 1.4-6.5 [facility] Neutrophils/100 WBC Auto (Bl d)on 12-16-2023 Neutrophils/100 WBC (Bld) 59.9 % 43.0-75.0 [facility] No Panel Informationon 12-15 Eosinophils # (Auto) 0.2 10 3/uL 0.0-0.7 [facility] Immature Granulocyte # (Auto) 0.04 10 3/uL High 0.00-0.03 [facility] Protein Electrophoresis M-Valerio Not Observed g/dL Not Observed [facility] Protein Electrophoresis Note Comment . [facility] Comment on above: Protein electrophore sis scan will follow via computer,mail, or senior group manager delivery. Platelet mean volume Auto (B ld) [Entitic vol]on 12-16-2023 Platelet mean volume (Bld) [Entitic vol] 9.9 fL 9.5-13.5 [facility] Platelets Auto (Bld) [#/Vol] on 12-16-2023 Platelets (Bld) [#/Vol] 230 10 3/uL 150-450 [facility] Protein Auto test strip (U) [Mass/Vol]on 12-16-2023 Protein (U) [Mass/Vol] Negative [facility] [Mass/volume] in Ser um or Plasmaon 12-16-2023 Protein [Mass/Vol] 7.1 g/dL 6.0-8.5 [facility] RBC Auto (Bld) [#/Vol]on RBC (Bld) [#/Vol] 4.51 10 6/uL Low 4.70-6.10 [facility] Serum globulin measurement ( mass/volume)on 12-16-2023 Globulin (S) [Mass/Vol] 2.9 g/dL 2.2-3.9 [facility] Serum or plasma albumin/glob ulin mass ratioon 12-16-2023 Albumin/Globulin [Mass ratio] 1.5 {ratio} 0.7-1.7 [facility] Serum or plasma alpha 1 glob ulin measurement by electrophoresis (mass/volume)on 12-16-2023 Alpha 1 globulin Elph [Mass/Vol] 0.2 g/dL 0.0-0.4 [facility] Serum or plasma alpha 2 glob ulin measurement by electrophoresis (mass/volume)on 12-16-2023 Alpha 2 globulin Elph [Mass/Vol] 0.7 g/dL 0.4-1.0 [facility] Serum or plasma beta globuli n measurement by electrophoresis (mass/volume)on 12-16-2023 Beta globulin Elph [Mass/Vol] 0.8 g/dL 0.7-1.3 [facility] Serum or plasma gamma globul in measurement by electrophoresis (mass/volume)on 12-16-2023 Gamma globulin Elph [Mass/Vol] 1.1 g/dL 0.4-1.8 [facility] Serum or plasma immunoelectr ophoresis interpretationon 12-16-2023 Interpretation IEP [Interp] Comment . [facility] Comment on above: No monoclonality det ected. Specific gravity Auto test s trip (U) [Rel density]on 12-16-2023 Specific gravity (U) [Rel density] CLEAR CLEAR [facility] Urine glucose measurement by test strip (mass/volume)on 12-16-2023 Glucose Test strip (U) [Mass/Vol] Negative NEGATIVE [facility] Urine hemoglobin detection b y automated test stripon 12-16-2023 Hemoglobin Auto test strip Ql (U) Negative NEGATIVE [facility] Urine nitrite detection by a utomated test stripon 12-16-2023 Nitrite Auto test strip Ql (U) Negative NEGATIVE [facility] Urobilinogen Auto test strip (U) [Mass/Vol]on 12-16-2023 Urobilinogen Qn (U) 0.2 {Aimee'U}/dL 0.2-1.0 [facility] pH Auto test strip (U)on pH (U) 6.0 [pH] 5.0-9.0 [facility] Automated urine specific gra vity by refractometryon 12-10-2023 Specific gravity Refractometry automated (U) [Rel density] 1.015 1.005-1.025 [facility] Bilirubin Auto test strip (U ) [Mass/Vol]on 12-10-2023 Bilirubin (U) [Mass/Vol] Negative NEGATIVE [facility] Color Auto (U)on 12-10-2023 Color (U) LT. YELLOW YELLOW [facility] Estimated glomerular filtrat ion rate (GFR) non- Americanon 12-10-2023 GFR/1.73 sq M.predicted among non-blacks MDRD (S/P/Bld) [Vol rate/Area] 32 mL/min/{1.73_m2} Low >=60 [facility] Ketones Auto test strip (U) [Mass/Vol]on 12-10-2023 Ketones (U) [Mass/Vol] Negative NEGATIVE [facility] Lab Reportson 12-10-2023 Lab Reports [id number] Normal [facility] Laboratory - Chemistry and C hemistry - challengeon 12-10-2023 Calcium [Mass/Vol] 9.1 mg/dL 8.5-10.1 [facility] Chloride [Moles/Vol] 102 mmol/L 98-107 [facility] CO2 [Moles/Vol] 29.9 mmol/L 21.0-32.0 [facility] Creatinine [Mass/Vol] 2.02 mg/dL High 0.70-1.30 [facility] GFR/1.73 sq M.predicted MDRD (S/P/Bld) [Vol rate/Area] 39 mL/min/{1.73_m2} Low >=60 [facility] Glucose [Mass/Vol] 92 mg/dL 74-106 [facility] Potassium [Moles/Vol] 5.1 mmol/L 3.5-5.1 [facility] Sodium [Moles/Vol] 139 mmol/L 136-145 [facility] Urea nitrogen [Mass/Vol] 29.0 mg/dL High 7.0-18.0 [facility] Urea nitrogen/Creatinine [Mass ratio] 14.4 mg/mg [facility] Protein Auto test strip (U) [Mass/Vol]on 12-10-2023 Protein (U) [Mass/Vol] Negative NEG/TRACE [facility] Serum or plasma anion gap de terminationon 12-10-2023 Anion gap [Moles/Vol] 12.2 mmol/L [facility] Specific gravity Auto test s trip (U) [Rel density]on 12-10-2023 Specific gravity (U) [Rel density] CLEAR CLEAR [facility] Urine glucose measurement by test strip (mass/volume)on 12-10-2023 Glucose Test strip (U) [Mass/Vol] Negative NEGATIVE [facility] Urine hemoglobin detection b y automated test stripon 12-10-2023 Hemoglobin Auto test strip Ql (U) Negative NEGATIVE [facility] Urine nitrite detection by a utomated test stripon 12-10-2023 Nitrite Auto test strip Ql (U) Negative NEGATIVE [facility] Urobilinogen Auto test strip (U) [Mass/Vol]on 12-10-2023 Urobilinogen Qn (U) 0.2 {Aimee'U}/dL 0.2-1.0 [facility] pH Auto test strip (U)on pH (U) 8.0 [pH] 5.0-9.0 [facility] No Panel Informationon 12-08 Prostate Specific Antigen Total 1.96 ng/mL <=4.00 [facility] Potassiumon 04-10-2023 Potassium [Moles/Vol] 4.3 mmol/L Normal 3.5-5.1 [facility] Comment on above: Result Comment: PERF ORMED BY: [place] [address] PATHOLOGIST [employer] PROFESSIONAL ANGELICA SUN M.D. Performed By: #### K #### [facility] [address] Basic Metabolic Panelon 07-2 -2022 Anion gap [Moles/Vol] 9.5 mmol/L Normal 6.0-15.0 [facility] Comment on above: Performed By: #### C BC, BMP #### [facility] [address] Calcium [Mass/Vol] 9.2 mg/dL Normal 8.6-10.3 [facility] Comment on above: Result Comment: PERF ORMED BY: [place] [address] PATHOLOGIST [employer]COMM[employer] PROFESSIONAL ANGELICA SUN M.D. Performed By: #### C BC, BMP #### [facility] [address] [place] [address] [place] Chloride [Moles/Vol] 107 mmol/L Normal 98-107 [facility] Comment on above: Performed By: #### C BC, BMP #### [facility] [address] CO2 [Moles/Vol] 28.4 mmol/L Normal 21.0-31.0 [facility] Comment on above: Performed By: #### C BC, BMP #### [facility] [address] [place] [address] [place] Creatinine [Mass/Vol] 1.47 mg/dL High 0.70-1.30 [facility] Comment on above: Performed By: #### C BC, BMP #### [facility] [address] [place] [address] [place] GFR/1.73 sq M.predicted MDRD (S/P/Bld) [Vol rate/Area] 49.742 mL/min/{1.73_m2} Normal [facility] Comment on above: Performed By: #### C BC, BMP #### [facility] [address] Glucose [Mass/Vol] 90 mg/dL Normal 70-100 [facility] Comment on above: Result Comment: [place] Glucose Reference Range is dependent on time and content of last meal. Glucose of more than 200 mg/dL in a nonstressed, ambulatory subject supports the diagnosis of Diabetes Mellitus. ADA recommended reference range Performed By: #### C BC, BMP #### [facility] [address] Potassium [Moles/Vol] 5.9 mmol/L High 3.5-5.1 [facility] Comment on above: Performed By: #### C GARRETT, BMP #### [facility] [address] Sodium [Moles/Vol] 139 mmol/L Normal 136-145 [facility] Comment on above: Performed By: #### C GARRETT, BMP #### [facility] [address] Urea nitrogen [Mass/Vol] 27 mg/dL High 7-25 [facility] Comment on above: Performed By: #### C GARRETT, BMP #### [facility] [address] [place] [address] [place] Basophils Auto (Bld) [#/Vol] Ordered By: Ryan Cornell on 03-27-2023 Basophils (Bld) [#/Vol] 0.0 10*3/uL 0.0-0.2 [facility] Basophils/100 WBC Auto (Bld) Ordered By: Ryan Cornell on 03-27-2023 Basophils/100 WBC (Bld) 0.6 % . [facility] Calcium [Mass/volume] in Ser um or PlasmaOrdered By: Ryan Cornell on 03-27-2023 Calcium [Mass/Vol] 9.2 mg/dL 8.6-10.3 [facility] Carbon dioxide, total [Moles /volume] in Serum or PlasmaOrdered By: Ryan Cornell on 03-27-2023 CO2 [Moles/Vol] 28.4 mmol/L 21.0-31.0 [facility] Chloride [Moles/volume] in S arturo or PlasmaOrdered By: Ryan Cornell on 03-27-2023 Chloride [Moles/Vol] 107 mmol/L 98-107 [facility] Complete Blood Count Auto Di ffon 03-27-2023 Basophils (Bld) [#/Vol] 0.0 10*3/uL Normal 0.0-0.2 [facility] Comment on above: Result Comment: PERF ORMED BY: [place] [address] PATHOLOGIST [employer] PROFESSIONAL ANGELICA SUN M.D. Performed By: #### C BC, BMP #### [address] Basophils/100 WBC (Bld) 0.6 % Normal . [facility] Comment on above: Performed By: #### C BC, BMP #### [address] Eosinophils (Bld) [#/Vol] 0.2 10*3/uL Normal 0.0-0.45 [facility] Comment on above: Performed By: #### C BC, BMP #### [address] Eosinophils/100 WBC (Bld) 3.2 % Normal . [facility] Comment on above: Performed By: #### C BC, BMP #### [address] Erythrocyte distribution width (RBC) [Ratio] 13.3 % Normal 12.0-14.8 [facility] Comment on above: Performed By: #### C BC, BMP #### [address] Hematocrit (Bld) [Volume fraction] 36.5 % Low 38.8-50.0 [facility] Comment on above: Performed By: #### C BC, BMP #### [address] Hemoglobin (Bld) [Mass/Vol] 12.3 g/dL Low 13.0-17.0 [facility] Comment on above: Performed By: #### C GARRETT, BMP #### [facility] [address] Lymphocytes (Bld) [#/Vol] 1.6 10*3/uL Normal 1.00-4.8 [facility] Comment on above: Performed By: #### C BC, BMP #### [facility] [address] Lymphocytes/100 WBC (Bld) 24.3 % Normal . [facility] Comment on above: Performed By: #### C GARRETT, BMP #### [address] MCH (RBC) [Entitic mass] 31.8 pg Normal 27.5-35.2 [facility] Comment on above: Performed By: #### C GARRETT, BMP #### [address] MCV (RBC) [Entitic vol] 94.2 fL Normal 83.5-101 [facility] Comment on above: Performed By: #### C GARRETT, BMP #### [address] Mean Corpuscular HGB Conc 33.7 g/dL Normal 32.5-35.6 [facility] Comment on above: Performed By: #### C GARRETT, BMP #### [address] Monocytes (Bld) [#/Vol] 0.7 10*3/uL Normal 0.0-0.8 [facility] Comment on above: Performed By: #### C BC, BMP #### [place] [address] [place] Monocytes/100 WBC (Bld) 11.1 % Normal . [facility] Comment on above: Performed By: #### C BC, BMP #### [address] Neutrophils (Bld) [#/Vol] 3.9 10*3/uL Normal 1.8-7.7 [facility] Comment on above: Performed By: #### C GARRETT, BMP #### [facility] [address] [place] [address] [place] Neutrophils/100 WBC (Bld) 60.8 % Normal . [facility] Comment on above: Performed By: #### C GARRETT, BMP #### [facility] [address] [place] [address] [place] NRBC% 0.1 /100{WBC} Normal 0-0.5 [facility] Comment on above: Performed By: #### C GARRETT, BMP #### [facility] [address] Platelet mean volume (Bld) [Entitic vol] 7.9 fL Normal 6.6-10.1 [facility] Comment on above: Performed By: #### C GARRETT, BMP #### [facility] [address] [place] [address] [place] Platelets (Bld) [#/Vol] 235 10*3/uL Normal 150-450 [facility] Comment on above: Performed By: #### C GARRETT, BMP #### [place] [address] [place] RBC (Bld) [#/Vol] 3.87 10*6/uL Low 3.90-5.60 [facility] Comment on above: Performed By: #### C GARRETT, BMP #### [address] WBC (Bld) [#/Vol] 6.5 10*3/uL Normal 4.1-10.5 [facility] Comment on above: Performed By: #### C GARRETT, BMP #### [place] [address] [place] Creatinine [Mass/volume] in Serum or PlasmaOrdered By: Ryan Cornell on 03-27-2023 Creatinine [Mass/Vol] 1.47 mg/dL 0.70-1.30 [facility] ECG 12 lead ECGon 03-27-2023 ECG 12 lead ECG [facility] [place] [address] [place] [address] Electrocardiograph Report Signed Patient: Marcelino Escobar MR#: [id number] 48 : 1950 Acct:[id number] Age/Sex: 72 / M ADM Date: 03/27/23 Loc: Room: Type: [facility] Attending Dr: Ryan Cornell [...] Signed By Duglas Hernandez MD 0807 Normal [facility] Eosinophils Auto (Bld) [#/Vo l]Ordered By: Ryan Cornell on 03-27-2023 Eosinophils (Bld) [#/Vol] 0.2 10*3/uL 0.0-0.45 [facility] Eosinophils/100 WBC Auto (Bl d)Ordered By: Ryan Cornell on 03-27-2023 Eosinophils/100 WBC (Bld) 3.2 % . [facility] Erythrocyte distribution wid th Auto (RBC) [Ratio]Ordered By: Ryan Cornell on 03-27-2023 Erythrocyte distribution width (RBC) [Ratio] 13.3 % 12.0-14.8 [facility] Glucose [Mass/volume] in Ser um or PlasmaOrdered By: Ryan Cornell on 03-27-2023 Glucose [Mass/Vol] 90 mg/dL 70-100 [facility] Comment on above: ADA recommended refe rence rangeRandom Glucose Reference Range is dependent on time and content of last meal. Glucose of more than 200 mg/dL in a nonstressed, ambulatory subject supports the diagnosis of Diabetes Mellitus. Hematocrit Auto (Bld) [Volum e fraction]Ordered By: Ryan Cornell on 03-27-2023 Hematocrit (Bld) [Volume fraction] 36.5 % 38.8-50.0 [facility] Hemoglobin [Mass/volume] in BloodOrdered By: Ryan Cornell on 03-27-2023 Hemoglobin (Bld) [Mass/Vol] 12.3 g/dL 13.0-17.0 [facility] Leukocytes [#/volume] correc denis for nucleated erythrocytes in Blood by Automated counOrdered By: Ryan Cornell on 03-27-2023 WBC corrected for nucl RBC Auto (Bld) [#/Vol] 6.5 10*3/uL 4.1-10.5 [facility] Lymphocytes Auto (Bld) [#/Vo l]Ordered By: Ryan Cronell on 03-27-2023 Lymphocytes (Bld) [#/Vol] 1.6 10*3/uL 1.00-4.8 [facility] Lymphocytes/100 WBC Auto (Bl d)Ordered By: Ryan Cornell on 03-27-2023 Lymphocytes/100 WBC (Bld) 24.3 % . [facility] MCH Auto (RBC) [Entitic mass ]Ordered By: Ryan Cornell on 03-27-2023 MCH (RBC) [Entitic mass] 31.8 pg 27.5-35.2 [facility] MCHC Auto (RBC) [Mass/Vol]Or dered By: Ryan Cornell on 03-27-2023 MCHC (RBC) [Mass/Vol] 33.7 g/dL 32.5-35.6 [facility] MCV Auto (RBC) [Entitic vol] Ordered By: Ryan Cornell on 03-27-2023 MCV (RBC) [Entitic vol] 94.2 fL 83.5-101 [facility] Monocytes Auto (Bld) [#/Vol] Ordered By: Ryan Cornell on 03-27-2023 Monocytes (Bld) [#/Vol] 0.7 10*3/uL 0.0-0.8 [facility] Monocytes/100 WBC Auto (Bld) Ordered By: Ryan Cornell on 03-27-2023 Monocytes/100 WBC (Bld) 11.1 % . [facility] Neutrophils Auto (Bld) [#/Vo l]Ordered By: Ryan Cornell on 03-27-2023 Neutrophils (Bld) [#/Vol] 3.9 10*3/uL 1.8-7.7 [facility] Neutrophils/100 WBC Auto (Bl d)Ordered By: Ryan Cornell on 03-27-2023 Neutrophils/100 WBC (Bld) 60.8 % . [facility] No Panel InformationOrdered By: Ryan Cornell on 03-27-2023 Estimated GFR (CKD-EPI) 49.742 mL/Min [facility] Creatinine Clearance (Chem N/A [facility] Nucleated erythrocytes [Pres ence] in Blood by Automated countOrdered By: Ryan Cornell on 03-27-2023 Nucleated RBC Auto Ql (Bld) 0.1 /100{WBC} 0-0.5 [facility] Platelet mean volume Auto (B ld) [Entitic vol]Ordered By: Ryan Cornell on 03-27-2023 Platelet mean volume (Bld) [Entitic vol] 7.9 fL 6.6-10.1 [facility] Platelets Auto (Bld) [#/Vol] Ordered By: Ryan oCrnell on 03-27-2023 Platelets (Bld) [#/Vol] 235 10*3/uL 150-450 [facility] Potassium [Moles/volume] in Serum or PlasmaOrdered By: Ryan Cornell on 03-27-2023 Potassium [Moles/Vol] 5.9 mmol/L 3.5-5.1 [facility] RBC Auto (Bld) [#/Vol]Ordere d By: Ryan Cornell on 03-27-2023 RBC (Bld) [#/Vol] 3.87 10*6/uL 3.90-5.60 [facility] Serum or plasma anion gap de terminationOrdered By: Ryan Cornell on 03-27-2023 Anion gap [Moles/Vol] 9.5 mmol/L 6.0-15.0 [facility] Sodium [Moles/volume] in Ser um or PlasmaOrdered By: Ryan Cornell on 03-27-2023 Sodium [Moles/Vol] 139 mmol/L 136-145 [facility] Urea nitrogen [Mass/volume] in Serum or PlasmaOrdered By: Ryan Cornell on 03-27-2023 Urea nitrogen [Mass/Vol] 27 mg/dL 7-25 [facility] WBC Auto (Bld) [#/Vol]Ordere d By: Ryan Cornell on 03-27-2023 WBC (Bld) [#/Vol] 6.5 10*3/uL 4.1-10.5 [facility] CBC AUTO DIFFon 02-04-2023 BASO # 0.0 103/ul Normal 0.0-0.1 [facility] Comment on above: Performed By: #### C BC #### [facility] [address] [place] [address] Dr. Haley Mays Basophils/100 WBC (Bld) 0.4 % Normal 0.2-2.0 [facility] Comment on above: Performed By: #### C BC #### [facility] [address] [place] [address] Dr. Haley Mays EO # 0.0 103/ul Normal 0.0-0.7 [facility] Comment on above: Performed By: #### C BC #### [facility] [address] [place] [address] Dr. Haley Mays Eosinophils/100 WBC (Bld) 0.5 % Critically low 0.9-7.0 [facility] Comment on above: Performed By: #### C BC #### [facility] [address] [place] [address] Dr. Haley Mays Erythrocyte distribution width (RBC) [Ratio] 12.3 % Normal 11.0-15.0 [facility] Comment on above: Performed By: #### C BC #### [facility] [address] [place] [address] Dr. Haley Mays Hematocrit (Bld) [Volume fraction] 33.2 % Critically low 42.0-54.0 [facility] Comment on above: Performed By: #### C BC #### [facility] [address] [place] [address] Dr. Haley Mays Hemoglobin (Bld) [Mass/Vol] 11.6 g/dL Critically low 14.0-18.0 [facility] Comment on above: Performed By: #### C BC #### [facility] [address] [place] [address] Dr. Haley Mays IG # 0.05 10e3/ul Critically high 0.00-0.03 [facility] Comment on above: Performed By: #### C BC #### [facility] [address] [place] [address] Dr. Haley Mays IG % 0.9 % Critically high 0.0-0.5 [facility] Comment on above: Performed By: #### C BC #### [facility] [address] [place] [address] Dr. Haley Mays LYMPH # 1.3 103/ul Normal 1.2-3.8 [facility] Comment on above: Performed By: #### C BC #### [facility] [address] [place] [address] Dr. Haley Mays Lymphocytes/100 WBC (Bld) 21.9 % Normal 20.5-60.0 [facility] Comment on above: Performed By: #### C BC #### [facility] [address] [place] [address] Dr. Haley Mays MANUAL DIFF REQ NO Normal [facility] Comment on above: Performed By: #### C BC #### [facility] [address] [place] [address] Dr. Haley Mays MCH (RBC) [Entitic mass] 32.0 pg Normal 25.9-34.0 [facility] Comment on above: Performed By: #### C BC #### [facility] [address] [place] [address] Dr. Haley Mays MCHC (RBC) [Mass/Vol] 34.9 g/dL Normal 29.9-35.2 [facility] Comment on above: Performed By: #### C BC #### [facility] [address] [place] [address] Dr. Haley Mays MCV (RBC) [Entitic vol] 91.5 fL Normal 80.0-94.0 [facility] Comment on above: Performed By: #### C BC #### [facility] [address] [place] [address] Dr. Haley Mays MONO # 0.7 103/ul Normal 0.3-0.8 [facility] Comment on above: Performed By: #### C BC #### [facility] [address] [place] [address] Dr. Haley Mays Monocytes/100 WBC (Bld) 11.6 % Normal 1.7-12.0 [facility] Comment on above: Performed By: #### C BC #### [facility] [address] [place] [address] Dr. Haley Mays NEUT # 3.7 103/ul Normal 1.4-6.5 [facility] Comment on above: Performed By: #### C BC #### [facility] [address] [place] [address] Dr. Haley Mays Neutrophils/100 WBC (Bld) 64.7 % Normal 43.0-75.0 [facility] Comment on above: Performed By: #### C BC #### [facility] [address] [place] [address] Dr. Haley Mays Platelet mean volume (Bld) [Entitic vol] 9.1 fL Critically low 9.5-13.5 [facility] Comment on above: Performed By: #### C BC #### [facility] [address] [place] [address] Dr. Haley Mays PLT 281 103/ul Normal 150-450 [facility] Comment on above: Performed By: #### C BC #### [facility] [address] [place] [address] Dr. Haley Mays RBC 3.63 106/ul Critically low 4.70-6.10 [facility] Comment on above: Performed By: #### C BC #### [facility] [address] [place] [address] Dr. Haley Mays WBC 5.7 103/ul Normal 4.0-11.0 [facility] Comment on above: Performed By: #### C BC #### [facility] [address] [address] [address] Haley Mays PROF CHEM 8 (BAS METB)on Anion gap [Moles/Vol] 15.2 mmol/L Normal [facility] Comment on above: Performed By: #### B MP #### [facility] [address] [place] [address] Dr. Haley Mays Calcium [Mass/Vol] 8.8 mg/dL Normal 8.5-10.1 [facility] Comment on above: Performed By: #### B MP #### [facility] [address] [place] [address] Dr. Haley Mays Chloride [Moles/Vol] 97 mmol/L Critically low 98-107 [facility] Comment on above: Performed By: #### B MP #### [facility] [address] [place] [address] Dr. Haley Mays CO2 [Moles/Vol] 23.5 mmol/L Normal 21.0-32.0 [facility] Comment on above: Performed By: #### B MP #### [facility] [address] [place] [address] Dr. Haley Mays Creatinine [Mass/Vol] 1.44 mg/dL Critically high 0.70-1.30 [facility] Comment on above: Performed By: #### B MP #### [facility] [address] [place] [address] Dr. Haley Mays EGFR-AF COLOMBIAN 58 mL/min/1.73m2 Critically low >=60 [facility] Comment on above: Performed By: #### B MP #### [facility] [address] [place] [address] Dr. Haley Mays EGFR-NON AF COLOMBIAN 48 mL/min/1.73m2 Critically low >=60 [facility] Comment on above: Performed By: #### B MP #### [facility] [address] [address] [address] Haley Mays Glucose [Mass/Vol] 129 mg/dL Critically high 74-106 [facility] Comment on above: Performed By: #### B MP #### [facility] [address] [address] [address] Haley Mays Potassium [Moles/Vol] 4.7 mmol/L Normal 3.5-5.1 [facility] Comment on above: Performed By: #### B MP #### [facility] [address] [address] [address] Haley Mays Sodium [Moles/Vol] 131 mmol/L Critically low 136-145 [facility] Comment on above: Performed By: #### B MP #### [facility] [address] [place] [address] Dr. Haley Mays Urea nitrogen [Mass/Vol] 16.0 mg/dL Normal 7.0-18.0 [facility] Comment on above: Performed By: #### B MP #### [facility] [address] [place] [address] Dr. Haley Mays Urea nitrogen/Creatinine [Mass ratio] 11.1 mg/mg Normal [facility] Comment on above: Performed By: #### B MP #### [facility] [address] [place] [address] Dr. Haley Mays XR KUB 1 VIEWon 02-04-2023 XR KUB 1 VIEW EXAMINATION: XR KUB 1 VIEW HISTORY: Pain COMPARISON: No relevant comparison available. FINDINGS: BOWEL GAS PATTERN: No abnormal dilation or deviation. CALCIFICATIONS: None significant. OTHER: Mild bilateral hip osteoarthropathy. Degenerative spondylosis. No abnormal gaseous collections. IMPRESSION: Nonobstructive bowel gas pattern Electronically authenticated by: RUSTY SILVA Date: 2023-02-04 13:57 Normal [facility] 01-23-2023 L - -------- Specimen: [id number] Received: 01/24/23 Status: TONY Rosen Num: [id number] Spec Type: Surgical Subm Dr: Hector Pretty MD Tissues: A Stomach - Biopsy/Polyp (DUOD BX) B Colon Biopsy (RNDM COL BX) C Colon Biopsy (DESC COL POLYP) Procedures: HE/6, Gross/Micro L4/3 -------- Age/ Patient Sex Location Account Attending Physician -------- Marcelino Escobar/[facility] [id number] Hector Pretty MD -------- SPEC NUM: [id number] RECD: 01/24/23 STATUS: TONY ROSEN NUM: [id number] REGINALDO: 01/23/23- [facility] DR: Hector Pretty MD ENTERED: 01/24/[address] [facility] DR: SPEC TYPE: Surgical DEPT: S ENTERED BY: [id number] RECV BY: [id number] ORDERED: HE/6, Gross/Micro L4/3 ORDERED: HE6, Gross/Micro L4/3 Pathological Diagnosis A. Small bowel, [...] celiac, rule out microscopic colitis -------- Specimen: [id number] Received: 01/24/23 Status: TONY Silas Num: [id number] Spec Type: Surgical Subm Dr: Hector Pretty MD Tissues: A Stomach - Biopsy/Polyp (DUOD BX) B Colon Biopsy (RNDM COL BX) C Colon Biopsy (DESC COL POLYP) Procedures: , Gross/Micro L4/3 -------- Patient: Marcelino Escobar [id number] (Continued) -------- Specimen: [id number] Received: 01/24/23 (Continued) Signed (signature on file) Pop Perez MD 01/27/23 1005 -------- Specimen: Received: 01/24/23 Status: TONY Rosen Num: [id number] Spec Type: Surgical Subm Dr: Hector Pretty MD Tissues: A Stomach - Biopsy/Polyp (DUOD BX) B Colon Biopsy (RNDM COL BX) C Colon Biopsy (DESC COL POLYP) Procedures: [place]/Janeth Hairston/Dianna L4/3 -------- Patient: Marcelino Escobar [id number] (Continued) -------- Specimen: Received: 01/24/23 (Continued) Gross Description A. Received [...] microscopic examination confirms the diagnosis. CPT Codes 54269?3 -------- -------- Specimen: [id number] Received: 01/24/23 Status: TONY Rosen Num: [id number] Spec Type: Surgical Subm Dr: Hector Pretty MD Tissues: A Stomach - Biopsy/Polyp (DUOD BX) B Colon Biopsy (RNDM COL BX) C Colon Biopsy (DESC COL POLYP) Procedures: HE/6, Gross/Micro L4/3 -------- Patient: Marcelino Escobar [id number] (Continued) -------- Signed (signature on file) Pop Perez MD 01/27/23 1005 Normal [facility] CBC AUTO DIFFon 01-07-2023 BASO # 0.0 103/ul Normal 0.0-0.1 [facility] Comment on above: Performed By: #### C BC #### [facility] [address] [place] [address] Dr. Haley Mays Basophils/100 WBC (Bld) 0.5 % Normal 0.2-2.0 [facility] Comment on above: Performed By: #### C BC #### [facility] [address] [place] [address] Dr. Haley Mays EO # 0.1 103/ul Normal 0.0-0.7 [facility] Comment on above: Performed By: #### C BC #### [facility] [address] [place] [address] Dr. Haley Mays Eosinophils/100 WBC (Bld) 0.8 % Critically low 0.9-7.0 [facility] Comment on above: Performed By: #### C BC #### [facility] [address] [place] [address] Dr. Haley Mays Erythrocyte distribution width (RBC) [Ratio] 12.6 % Normal 11.0-15.0 [facility] Comment on above: Performed By: #### C BC #### [facility] [address] [address] [address] Haley Mays Hematocrit (Bld) [Volume fraction] 37.7 % Critically low 42.0-54.0 [facility] Comment on above: Performed By: #### C BC #### [facility] [address] [place] [address] Dr. Haley Mays Hemoglobin (Bld) [Mass/Vol] 12.3 g/dL Critically low 14.0-18.0 [facility] Comment on above: Performed By: #### C BC #### [facility] [address] [place] [address] Dr. Haley Mays IG # 0.05 10e3/ul Critically high 0.00-0.03 [facility] Comment on above: Performed By: #### C BC #### [facility] [address] [place] [address] Dr. Haley Mays IG % 0.8 % Critically high 0.0-0.5 [facility] Comment on above: Performed By: #### C BC #### [facility] [address] [place] [address] Dr. Haley Mays LYMPH # 1.5 103/ul Normal 1.2-3.8 [facility] Comment on above: Performed By: #### C BC #### [facility] [address] [place] [address] Dr. Haley Mays Lymphocytes/100 WBC (Bld) 25.0 % Normal 20.5-60.0 [facility] Comment on above: Performed By: #### C BC #### [facility] [address] [place] [address] Dr. Haley Mays MANUAL DIFF REQ NO Normal [facility] Comment on above: Performed By: #### C BC #### [facility] [address] [place] [address] Dr. Haley Mays MCH (RBC) [Entitic mass] 31.1 pg Normal 25.9-34.0 [facility] Comment on above: Performed By: #### C BC #### [facility] [address] [place] [address] Dr. Haley Mays MCHC (RBC) [Mass/Vol] 32.6 g/dL Normal 29.9-35.2 [facility] Comment on above: Performed By: #### C BC #### [facility] [address] [place] [address] Dr. Haley Mays MCV (RBC) [Entitic vol] 95.4 fL Critically high 80.0-94 .0 [facility] Comment on above: Performed By: #### C BC #### [facility] [address] [place] [address] Dr. Haley Mays MONO # 0.7 103/ul Normal 0.3-0.8 [facility] Comment on above: Performed By: #### C BC #### [facility] [address] [place] [address] Dr. Haley Mays Monocytes/100 WBC (Bld) 11.3 % Normal 1.7-12.0 [facility] Comment on above: Performed By: #### C BC #### [facility] [address] [place] [address] Dr. Haley Mays NEUT # 3.8 103/ul Normal 1.4-6.5 [facility] Comment on above: Performed By: #### C BC #### [facility] [address] [place] [address] Dr. Haley Mays Neutrophils/100 WBC (Bld) 61.6 % Normal 43.0-75.0 [facility] Comment on above: Performed By: #### C BC #### [facility] [address] [place] [address] Dr. Haley Mays Platelet mean volume (Bld) [Entitic vol] 9.2 fL Critically low 9.5-13.5 [facility] Comment on above: Performed By: #### C BC #### [facility] [address] [place] [address] Dr. Haley Mays PLT 300 103/ul Normal 150-450 [facility] Comment on above: Performed By: #### C BC #### [facility] [address] [place] [address] Dr. Haley Mays RBC 3.95 106/ul Critically low 4.70-6.10 [facility] Comment on above: Performed By: #### C BC #### [facility] [address] [place], [place] [address] Dr. Haley Mays WBC 6.1 103/ul Normal 4.0-11.0 [facility] Comment on above: Performed By: #### C BC #### [facility] [address] [place], [place] [address] ABD/PELV W CONon 12-26-[address] ABD/PELV W CON EXAMINATION: CT ABD/PELV [...] COURTNEY GILL Date: 2022-12-25 08:48 Normal [facility] Complete Blood Count and Dif kodak 12-03-2022 Anisocytosis Ql (Bld) [facility] Other Basophilic stippling LM Ql (Bld) [facility] [facility] Other RBC morphology finding Nom (Bld) [facility] Other IMMUNOGLOBULIN IGA QUANTITIA VEon 12-03-2022 Immunoglobulin A, Qn, Serum 321 mg/dL Normal 61-437 [facility] Comment on above: Performed By: #### C BC #### [facility] [address] [address] [address] Haley Mays TISSUE TRANSGLUTAMINASE IGGo n 12-03-2022 t-Transglutaminase (tTG) IgG 11 U/mL Critically high 0-5 [facility] Comment on above: Result Comment: Nega tive 0 - 5 Weak Positive 6 - 9 Positive >9 Performed By: #### T RNSIGG #### [facility] [address] [address] [address] Haley Mays TRANSGLUTAMINASE IGAon 12-03 t-Transglutaminase (tTG) IgA >100 Critically high 0-3 [facility] Comment on above: Result Comment: Nega tive 0 - 3 Weak Positive 4 - 10 Positive >10 . Tissue Transglutaminase (tTG) has been identified as the endomysial antigen. Studies have demonstr- ated that endomysial IgA antibodies have over 99% specificity for gluten sensitive enteropathy. Performed By: #### C BC #### [facility] [address] [address] [address] Haley Mays tTG IgA/IgG Transglutaminase on 12-03-2022 tTG IgA/IgG Transglutaminase [facility] [employer] Other Basic Metabolic Panelon 11-07 Anion gap [Moles/Vol] 14.2 mmol/L Normal No [facility] Other Comment on above: Performed By: #### B MP #### [facility] [address] [place] [address] Dr. Haley Mays Calcium [Mass/Vol] 8.8384028 mg/dL 8.5-10 .1 mg/dL [facility] [employer] Other Chloride [Moles/Vol] 110 mmol/L Critically high 98-[address] [facility] [employer] Other Comment on above: Performed By: #### B MP #### [facility] [address] [place] [address] Dr. Haley Mays CO2 [Moles/Vol] 26.47841720 mmol/L 21.0-3 2.0 mmol/L [facility] [employer] Other Creatinine [Mass/Vol] 1.92898437 mg/dL Critically high 0.70-1.30 mg/dL [facility] [employer] Other Potassium [Moles/Vol] 5.63256460 mmol/L Critically hig h 3.5-5.1 mmol/L [employer] Other Urea nitrogen [Mass/Vol] 25.2818825 mg/dL Critically high 7.0-18.0 mg/dL [employer] Other Urea nitrogen/Creatinine [Mass ratio] 18.8 mg/mg Normal [facility] Other Comment on above: Performed By: #### B MP #### [facility] [address] [place], [place] [id number] Dr. Haley Mays Basic Metabolic Panel see note [facility] Other Basic Metabolic Panel 145 mmol/L 136-14 5 mmol/L [employer] Other Basic Metabolic Panel 106 mg/dL 74-106 mg/dL [employer] Other Basic Metabolic Panel 53 mL/min/1.73m2 Critically low >=60 mL/min/1.73 m2 [employer] Other Basic Metabolic Panel >60 mL/min/1.73m2 > =60 mL/min/1.73 m2 [employer] Other CBC AUTO DIFFon 12-02-2022 BASO # 0.0 103/ul Normal 0.0-0.1 [facility] Comment on above: Performed By: #### C BC #### [facility] [address] [address] [address] Haley Mays Basophils/100 WBC (Bld) 0.3 % Normal 0.2-2.0 [facility] Comment on above: Performed By: #### C BC #### [facility] [address] [address] [address] Haley Mays EO # 0.1 103/ul Normal 0.0-0.7 [facility] Comment on above: Performed By: #### C BC #### [facility] [address] [address] [address] Haley Mays Eosinophils/100 WBC (Bld) 1.6 % Normal 0.9-7.0 [facility] Comment on above: Performed By: #### C BC #### [facility] [address] [place] [address] Dr. Haley Mays Erythrocyte distribution width (RBC) [Ratio] 12.9 % Normal 11.0-15.0 [facility] Comment on above: Performed By: #### C BC #### [facility] [address] [place] [address] Dr. Haley Mays Hematocrit (Bld) [Volume fraction] 36.7 % Critically low 42.0-54.0 [facility] Comment on above: Performed By: #### C BC #### [facility] [address] [place] [address] Dr. Haley Mays Hemoglobin (Bld) [Mass/Vol] 11.9 g/dL Critically low 14.0-18.0 [facility] Comment on above: Performed By: #### C BC #### [facility] [address] [place] [address] Dr. Haley Mays IG # 0.07 10e3/ul Critically high 0.00-0.03 [facility] Comment on above: Performed By: #### C BC #### [facility] [address] [address] [address] Haley Mays IG % 1.2 % Critically high 0.0-0.5 [facility] Comment on above: Performed By: #### C BC #### [facility] [address] [address] [address] Haley Mays LYMPH # 1.4 103/ul Normal 1.2-3.8 [facility] Comment on above: Performed By: #### C BC #### [facility] [address] [address] [address] Haley Mays Lymphocytes/100 WBC (Bld) 23.4 % Normal 20.5-60.0 [facility] Comment on above: Performed By: #### C BC #### [facility] [address] [place] [address] Dr. Haley Mays MANUAL DIFF REQ NO Normal [facility] Comment on above: Performed By: #### C BC #### [facility] [address] [place] [address] Dr. Haley Mays MCH (RBC) [Entitic mass] 30.7 pg Normal 25.9-34.0 [facility] Comment on above: Performed By: #### C BC #### [facility] [address] [place] [address] Dr. Haley Mays MCHC (RBC) [Mass/Vol] 32.4 g/dL Normal 29.9-35.2 [facility] Comment on above: Performed By: #### C BC #### [facility] [address] [place] [address] Dr. Haley Mays MCV (RBC) [Entitic vol] 94.6 fL Critically high 80.0-94 .0 [facility] Comment on above: Performed By: #### C BC #### [facility] [address] [place] [address] Dr. Haley Mays MONO # 0.7 103/ul Normal 0.3-0.8 [facility] Comment on above: Performed By: #### C BC #### [facility] [address] [place] [address] Dr. Haley Mays Monocytes/100 WBC (Bld) 11.5 % Normal 1.7-12.0 [facility] Comment on above: Performed By: #### C BC #### [facility] [address] [address] [address] Haley Mays NEUT # 3.8 103/ul Normal 1.4-6.5 [facility] Comment on above: Performed By: #### C BC #### [facility] [address] [address] [address] Haley Mays Neutrophils/100 WBC (Bld) 62.0 % Normal 43.0-75.0 [facility] Comment on above: Performed By: #### C BC #### [facility] [address] [address] [address] Haley Mays Platelet mean volume (Bld) [Entitic vol] 9.4 fL Critically low 9.5-13.5 [facility] Comment on above: Performed By: #### C BC #### [facility] [address] [address] [address] Haley Mays PLT 269 103/ul Normal 150-450 [facility] Comment on above: Performed By: #### C BC #### [facility] [address] [address] [address] Haley Mays RBC 3.88 106/ul Critically low 4.70-6.10 [facility] Comment on above: Performed By: #### C BC #### [facility] [address] [address] [address] Haley Mays WBC 6.1 103/ul Normal 4.0-11.0 [facility] Comment on above: Performed By: #### C BC #### [facility] [address] [address] [address] Haley Mays FERRITINon 12-02-2022 Ferritin [Mass/Vol] 57.0 ng/mL Normal 26.0-388.0 [facility] Comment on above: Performed By: #### C BC #### [facility] [address] [address] [address] Haley Mays Ferritin [Mass/Vol] 57.0696250 ng/mL 26.0 -388.0 ng/mL [employer] Other IRON AND TIBCon 12-02-2022 % SATURATION 34.5 % Normal [facility] Comment on above: Performed By: #### C BC #### [facility] [address] [address] [address] Haley Mays Iron [Mass/Vol] 88.0 ug/dL Normal 65.0-175.0 [facility] Comment on above: Performed By: #### C BC #### [facility] [address] [address] [address] Haley Mays TIBC DIRECT 255.0 ug/dL Normal 250.0-450.0 [facility] Comment on above: Performed By: #### C BC #### [facility] [address] [address] [address] Haley Mays Iron [Mass/Vol] 88.5659696 ug/dL 65.0-175 .0 ug/dL [employer] Other IRON AND TIBC 255.0 ug/dL 250.0-450.0 ug/dL [employer] Other IRON AND TIBC 34.5 % [employer] Other PROF CHEM 8 (BAS METB)on Calcium [Mass/Vol] 8.7 mg/dL Normal 8.5-10.1 [facility] Comment on above: Performed By: #### B MP #### [facility] [address] [place] [address] Dr. Haley Mays CO2 [Moles/Vol] 26.0 mmol/L Normal 21.0-32.0 [facility] Comment on above: Performed By: #### B MP #### [facility] [address] [address] [address] Haley Mays Creatinine [Mass/Vol] 1.33 mg/dL Critically high 0.70-1.30 [facility] Comment on above: Performed By: #### B MP #### [facility] [address] [address] [address] Haley Mays EGFR-AF COLOMBIAN >60 Normal >=60 [facility] Comment on above: Performed By: #### B MP #### [facility] [address] [address] [address] Haley Mays EGFR-NON AF COLOMBIAN 53 mL/min/1.73m2 Critically low >=60 [facility] Comment on above: Performed By: #### B MP #### [facility] [address] [address] [address] Haley Mays Glucose [Mass/Vol] 106 mg/dL Normal 74-106 [facility] Comment on above: Performed By: #### B MP #### [facility] [address] [address] [address] Haley Mays Potassium [Moles/Vol] 5.2 mmol/L Critically high 3.5-5.1 [facility] Comment on above: Performed By: #### B MP #### [facility] [address] [address] [address] Haley Mays Sodium [Moles/Vol] 145 mmol/L Normal 136-145 [facility] Comment on above: Performed By: #### B MP #### [facility] [address] [address] [address] Haley Mays Urea nitrogen [Mass/Vol] 25.0 mg/dL Critically high 7.0-18.0 [facility] Comment on above: Performed By: #### B MP #### [facility] [address] [address] [address] Haley Mays VIT B12 AND FOLATEon 023 FOLATE 19.60 ng/mL Normal 8.60-58.90 [facility] Comment on above: Performed By: #### C BC #### [facility] [address] [address] [address] Haley Mays Cobalamin (Vitamin B12) [Mass/Vol] pg/mL Critically high 193.0-986.0 [employer] Other Comment on above: Performed By: #### C BC #### [facility] [address] [address] [address] Haley Mays VIT B12 AND FOLATE 19.60 ng/mL 8.60-58.9 0 ng/mL [employer] Other CBC AUTO DIFFon 09-20-2022 BASO # 0.0 103/ul Normal 0.0-0.1 [facility] Comment on above: Performed By: #### C BC #### [facility] [address] [address] [address] Haley Mays Basophils/100 WBC (Bld) 0.3 % Normal 0.2-2.0 [facility] Comment on above: Performed By: #### C BC #### [facility] [address] [address] [address] Haley Mays EO # 0.1 103/ul Normal 0.0-0.7 [facility] Comment on above: Performed By: #### C BC #### [facility] [address] [address] [address] Haley Mays Eosinophils/100 WBC (Bld) 1.4 % Normal 0.9-7.0 [facility] Comment on above: Performed By: #### C BC #### [facility] [address] [address] [address] Haley Mays Erythrocyte distribution width (RBC) [Ratio] 12.9 % Normal 11.0-15.0 [facility] Comment on above: Performed By: #### C BC #### [facility] [address] [address] [address] Haley Mays Hematocrit (Bld) [Volume fraction] 39.5 % Critically low 42.0-54.0 [facility] Comment on above: Performed By: #### C BC #### [facility] [address] [address] [address] Haley Mays Hemoglobin (Bld) [Mass/Vol] 11.9 g/dL Critically low 14.0-18.0 [facility] Comment on above: Performed By: #### C BC #### [facility] [address] [address] [address] Haley Mays IG # 0.06 10e3/ul Critically high 0.00-0.03 [facility] Comment on above: Performed By: #### C BC #### [facility] [address] [place] [address] Dr. Haley Mays IG % 0.9 % Critically high 0.0-0.5 [facility] Comment on above: Performed By: #### C BC #### [facility] [address] [address] [address] Haley Mays LYMPH # 1.7 103/ul Normal 1.2-3.8 [facility] Comment on above: Performed By: #### C BC #### [facility] [address] [place] [address] Dr. Haley Mays Lymphocytes/100 WBC (Bld) 25.6 % Normal 20.5-60.0 [facility] Comment on above: Performed By: #### C BC #### [facility] [address] [place] [address] Dr. Haley Mays MANUAL DIFF REQ NO Normal [facility] Comment on above: Performed By: #### C BC #### [facility] [address] [place] [address] Dr. Haley Mays MCH (RBC) [Entitic mass] 31.4 pg Normal 25.9-34.0 [facility] Comment on above: Performed By: #### C BC #### [facility] [address] [place] [address] Dr. Haley Mays MCHC (RBC) [Mass/Vol] 30.1 g/dL Normal 29.9-35.2 [facility] Comment on above: Performed By: #### C BC #### [facility] [address] [place] [address] Dr. Haley Mays MCV (RBC) [Entitic vol] 104.2 fL Critically high 80.0-94 .0 [facility] Comment on above: Performed By: #### C BC #### [facility] [address] [place] [address] Dr. Haley Mays MONO # 0.9 103/ul Critically high 0.3-0.8 [facility] Comment on above: Performed By: #### C BC #### [facility] [address] [address] [address] Haley Mays Monocytes/100 WBC (Bld) 14.0 % Critically high 1.7-12. 0 [facility] Comment on above: Performed By: #### C BC #### [facility] [address] [address] [address] Haley Mays NEUT # 3.7 103/ul Normal 1.4-6.5 [facility] Comment on above: Performed By: #### C BC #### [facility] [address] [address] [address] Haley Mays Neutrophils/100 WBC (Bld) 57.8 % Normal 43.0-75.0 [facility] Comment on above: Performed By: #### C BC #### [facility] [address] [address] [address] Haley Mays Platelet mean volume (Bld) [Entitic vol] 9.6 fL Normal 9.5-13.5 [facility] Comment on above: Performed By: #### C BC #### [facility] [address] [address] [address] Haley Mays PLT 291 103/ul Normal 150-450 [facility] Comment on above: Performed By: #### C BC #### [facility] [address] [address] [address] Haley Mays RBC 3.79 106/ul Critically low 4.70-6.10 [facility] Comment on above: Performed By: #### C BC #### [facility] [address] [address] [address] Haley Mays WBC 6.4 103/ul Normal 4.0-11.0 [facility] Comment on above: Performed By: #### C BC #### [facility] [address] [address] [address] Haley Mays LIPID PROFILEon 09-20-2022 CHOL-HDL RATIO NORM SEE BELOW Normal [facility] Comment on above: Result Comment: 3.3 - 4.4 LOW RISK 4.4 - 7.1 AVERAGE RISK 7.1 - 11.0 MODERATE RISK >11.0 HIGH RISK Performed By: #### L IPID, BMP, ALT #### [facility] [address] [address] [address] Haley Mays Cholesterol [Mass/Vol] 123 mg/dL Normal <=200 [facility] Comment on above: Performed By: #### L IPID, BMP, ALT #### [facility] [address] [address] [address] Haley Mays Cholesterol in HDL [Mass/Vol] 26 mg/dL Critically low 40-60 [facility] Comment on above: Performed By: #### L IPID, BMP, ALT #### [facility] [address] [address] [address] Haley Mays Cholesterol in LDL [Mass/Vol] 57.6 mg/dL Normal [facility] Comment on above: Performed By: #### L IPID, BMP, ALT #### [facility] [address] [address] [address] Haley Mays Cholesterol.total/Tri sterol in HDL [Mass ratio] 4.7 {ratio} Normal [facility] Comment on above: Performed By: #### L IPID, BMP, ALT #### [facility] [address] [address] [address] aHley Mays HDL NORMAL > or = 60 mg/dl - LO W CARDIOVASCULAR RISK <40 mg/dl - HIGH CARDIOVASCULAR RISK Normal [facility] Comment on above: Performed By: #### L IPID, BMP, ALT #### [facility] [address] [place] [address] Dr. Haley Mays LDL CALC NORMAL SEE BELOW Normal [facility] Comment on above: Result Comment: <100 mg/dl OPTIMAL 100 - 129 mg/dl NEAR OR ABOVE OPTIMAL 130 - 159 mg/dl BORDERLINE HIGH 160 - 189 mg/dl HIGH >190 mg/dl VERY HIGH Performed By: #### L IPID, BMP, ALT #### [facility] [address] [address] [address] Haley Mays Triglyceride [Mass/Vol] 197 mg/dL Critically high <=150 [facility] Comment on above: Performed By: #### L IPID, BMP, ALT #### [facility] [address] [place] [address] Dr. Haley Mays VLDL CALC 39.4 mg/dL Normal [facility] Comment on above: Performed By: #### L IPID, BMP, ALT #### [facility] [address] [place] [address] Dr. Haley Mays PROF CHEM 8 (BAS METB)on Anion gap [Moles/Vol] 13.9 mmol/L Normal [facility] Comment on above: Performed By: #### L IPID, BMP, ALT #### [facility] [address] [place] [address] Dr. Haley Mays Calcium [Mass/Vol] 8.6 mg/dL Normal 8.5-10.1 [facility] Comment on above: Performed By: #### L IPID, BMP, ALT #### [facility] [address] [place] [address] Dr. Haley Mays Chloride [Moles/Vol] 105 mmol/L Normal 98-107 [facility] Comment on above: Performed By: #### L IPID, BMP, ALT #### [facility] [address] [place] [address] Dr. Haley Mays CO2 [Moles/Vol] 25.1 mmol/L Normal 21.0-32.0 [facility] Comment on above: Performed By: #### L IPID, BMP, ALT #### [facility] [address] [place] [address] Dr. Haley Mays Creatinine [Mass/Vol] 1.47 mg/dL Critically high 0.70-1.30 [facility] Comment on above: Performed By: #### L IPID, BMP, ALT #### [facility] [address] [place] [address] Dr. Haley Mays EGFR-AF COLOMBIAN 57 mL/min/1.73m2 Critically low >=60 [facility] Comment on above: Performed By: #### L IPID, BMP, ALT #### [facility] [address] [address] [address] Haley Mays EGFR-NON AF COLOMBIAN 47 mL/min/1.73m2 Critically low >=60 [facility] Comment on above: Performed By: #### L IPID, BMP, ALT #### [facility] [address] [address] [address] Haley Mays Glucose [Mass/Vol] 71 mg/dL Critically low 74-106 [facility] Comment on above: Performed By: #### L IPID, BMP, ALT #### [facility] [address] [address] [address] Haley Mays Potassium [Moles/Vol] 5.0 mmol/L Normal 3.5-5.1 [facility] Comment on above: Performed By: #### L IPID, BMP, ALT #### [facility] [address] [address] [address] Haley Mays Sodium [Moles/Vol] 139 mmol/L Normal 136-145 [facility] Comment on above: Performed By: #### L IPID, BMP, ALT #### [facility] [address] [address] [address] Haley Mays Urea nitrogen [Mass/Vol] 27.0 mg/dL Critically high 7.0-18.0 [facility] Comment on above: Performed By: #### L IPID, BMP, ALT #### [facility] [address] [address] [address] Haley Mays Urea nitrogen/Creatinine [Mass ratio] 18.4 mg/mg Normal [facility] Comment on above: Performed By: #### L IPID, BMP, ALT #### [facility] [address] [address] [address] Haley Mays [facility] 09-20-2022 ALT [Catalytic activity/Vol] 37 U/L Normal 16-63 [facility] Comment on above: Performed By: #### L IPID, BMP, ALT #### [facility] [address] [address] [address] Haley Mays Vital Signs Date Time Vital Sign Value Performing Clinician Facility 05-03-2024 09:42-0400 Body height 180.34 cm [facility] 05-03-2024 09:42-0400 Body mass index (BMI) [Ratio] 25.4 kg/m2 [facility] 05-03-2024 09:42-0400 Body weight 82.55 kg [facility] 05-03-2024 09:42-0400 Diastolic blood pressure 78 mm[Hg] [facility] 05-03-2024 09:42-0400 Heart rate 82 /min [facility] 05-03-2024 09:42-0400 Systolic blood pressure 126 mm[Hg] [facility] 04-01-2024 14:13-0400 Body height 180.34 cm [facility] 04-01-2024 14:13-0400 Body mass index (BMI) [Ratio] 25.1 kg/m2 [facility] 04-01-2024 14:13-0400 Body temperature 97.8 [degF] [facility] 04-01-2024 14:13-0400 Body weight 81.76 kg [facility] 04-01-2024 14:13-0400 Diastolic blood pressure 80 mm[Hg] [facility] 04-01-2024 14:13-0400 Heart rate 74 /min [facility] 04-01-2024 14:13-0400 Respiratory rate 18 /min [facility] 04-01-2024 14:13-0400 SaO2% (BldA) [Mass fraction] 99 % [facility] 04-01-2024 14:13-0400 Systolic blood pressure 122 mm[Hg] [facility] 03-18-2024 14:22-0400 Body height 180.34 cm [facility] 03-18-2024 14:22-0400 Body mass index (BMI) [Ratio] 25.5 kg/m2 [facility] 03-18-2024 14:22-0400 Body temperature 98.5 [degF] [facility] 03-18-2024 14:220400 Body weight 83 kg [facility] 03-18-2024 14:22-0400 Diastolic blood pressure 75 mm[Hg] [facility] 03-18-2024 14:22-0400 Heart rate 67 /min [facility] 03-18-2024 14:22-0400 Respiratory rate 16 /min [facility] 03-18-2024 14:22-0400 SaO2% (BldA) [Mass fraction] 97 % [facility] 03-18-2024 14:22-0400 Systolic blood pressure 125 mm[Hg] [facility] 01-01-2024 09:13-0400 Body height 182.88 cm [facility] 01-01-2024 09:13-0400 Body mass index (BMI) [Ratio] 24.7 kg/m2 [facility] 01-01-2024 09:13-0400 Body weight 82.61 kg [facility] 01-01-2024 09:13-0400 Diastolic blood pressure 87 mm[Hg] [facility] 01-01-2024 09:13-0400 Heart rate 81 /min [facility] 01-01-2024 09:13-0400 Respiratory rate 16 /min [facility] 01-01-2024 09:13-0400 Systolic blood pressure 136 mm[Hg] [facility] 12-22-2023 14:12-0400 Blood Pressure Location Bijan VELAZQUEZ [facility] 12-22-2023 14:12-0400 Body temperature 98.6 [degF] Bijan VELAZQUEZ [facility] 12-22-2023 14:12-0400 Diastolic blood pressure 87 mm[Hg] Bijan VELAZQUEZ [facility] 12-22-2023 14:12-0400 Heart rate 75 /min Bijan VELAZQUEZ [facility] 12-22-2023 14:12-0400 Respiratory rate 16 /min Bijan VELAZQUEZ [facility] 12-22-2023 14:12-0400 Systolic blood pressure 138 mm[Hg] Bijan VELAZQUEZ [facility] 11-05-2023 11:43-0500 Body height 182.88 cm [facility] 11-05-2023 11:43-0500 Body mass index (BMI) [Ratio] 24.5 kg/m2 [facility] 11-05-2023 11:43-0500 Body weight 82.1 kg [facility] 11-05-2023 11:43-0500 Diastolic blood pressure 83 mm[Hg] [facility] 11-05-2023 11:43-0500 Heart rate 87 /min [facility] 11-05-2023 11:43-0500 Respiratory rate 12 /min [facility] 11-05-2023 11:43-0500 Systolic blood pressure 158 mm[Hg] [facility] 09-19-2023 09:30-0500 Body height 182.88 cm Anirudh Ball Other [facility] 09-19-2023 09:30-0500 Body mass index (BMI) [Ratio] 23.62 kg/m2 Anirudh Ball Other [facility] [employer] Other 09-19-2023 09:30-0500 Body weight 79.02 kg Anirudh Ball Other [facility] [employer] Other 09-19-2023 09:30-0500 Body weight 79.01 kg [facility] 09-19-2023 09:30-0500 Diastolic blood pressure 80 mm[Hg] Anirudh Ball Other [facility] 09-19-2023 09:30-0500 Respiratory rate 12 /min Anirudh Ball Other [facility] [employer] Other 09-19-2023 09:30-0500 Systolic blood pressure 135 mm[Hg] Anirudh Ball Other [facility] 08-20-2023 08:45-0500 Body height 182.88 cm Anirudh Ball Other [facility] 08-20-2023 08:45-0500 Body mass index (BMI) [Ratio] 22.62 kg/m2 Anirudh Ball Other [facility] [employer] Other 08-20-2023 08:45-0500 Body weight 75.66 kg Anirudh Ball Other [facility] [employer] Other 08-20-2023 08:45-0500 Body weight 75.65 kg [facility] 08-20-2023 08:45-0500 Diastolic blood pressure 93 mm[Hg] Anirudh Ball Other [facility] 08-20-2023 08:45-0500 Respiratory rate 12 /min Anirudh Ball Other [facility] [employer] Other 08-20-2023 08:45-0500 Systolic blood pressure 177 mm[Hg] Anirudh Ball Other [facility] 04-17-2023 11:00-0400 Body height 182.88 cm Anirudh Ball Other [facility] [employer] Other 04-17-2023 11:00-0400 Body mass index (BMI) [Ratio] 22.51 kg/m2 Anirudh Ball Other [facility] [employer] Other 04-17-2023 11:00-0400 Body weight 75.3 kg Anirudh Ball Other [facility] [employer] Other 04-17-2023 11:00-0400 Diastolic blood pressure 76 mm[Hg] Anirudh Ball Other [facility] Other 04-17-2023 11:00-0400 Systolic blood pressure 144 mm[Hg] Anirudh Ball Other [employer] Other 04-14-2023 14:00-0400 Body height 182.88 cm Imad Asaad Other [employer] Other 04-14-2023 14:00-0400 Body mass index (BMI) [Ratio] 22.38 kg/m2 Imad Asaad Other [employer] Other 04-14-2023 14:00-0400 Body weight 74.84 kg Imad Asaad Other [employer] Other 04-14-2023 14:00-0400 Diastolic blood pressure 85 mm[Hg] Imad Asaad Other [employer] Other 04-14-2023 14:00-0400 Systolic blood pressure 149 mm[Hg] Imad Asaad Other [employer] Other 02-05-2023 09:30-0400 Body height 182.88 cm Anirudh Ball Other [employer] Other 02-05-2023 09:30-0400 Body mass index (BMI) [Ratio] 20.67 kg/m2 Anirudh Ball Other [employer] Other 02-05-2023 09:30-0400 Body weight 69.13 kg Anirudh Ball Other [employer] Other 02-05-2023 09:30-0400 Diastolic blood pressure 74 mm[Hg] Anirudh Ball Other [employer] Other 02-05-2023 09:30-0400 Respiratory rate 12 /min Anirudh Ball Other [employer] Other 02-05-2023 09:30-0400 Systolic blood pressure 129 mm[Hg] Anirudh Ball Other [facility] [employer] Other 01-23-2023 16:15-0400 Diastolic blood pressure 88 mm[Hg] DO Anirudh Ball Work Phone: [facility] 01-23-2023 16:15-0400 Heart rate 68 /min DO Anirudh Ball Work Phone: [facility] 01-23-2023 16:15-0400 Respiratory rate 16 /min DO Anirudh Ball Work Phone: [facility] 01-23-2023 16:15-0400 SaO2% (BldA) [Mass fraction] 99 % DO Anirudh Ball Work Phone: [facility] 01-23-2023 16:15-0400 Systolic blood pressure 128 mm[Hg] DO Anirudh Ball Work Phone: [facility] 01-23-2023 13:44-0400 Body height 180.34 cm DO Anirudh Ball Work Phone: [facility] 01-23-2023 13:44-0400 Body weight 69.39 kg DO Anirudh Ball Work Phone: [facility] 01-06-2023 14:15-0400 Body height 182.88 cm Imad Asaad Other [facility] [employer] Other 01-06-2023 14:15-0400 Body mass index (BMI) [Ratio] 21.7 kg/m2 Imad Asaad Other [employer] Other 01-06-2023 14:15-0400 Body weight 72.58 kg Imad Asaad Other [facility] [employer] Other 01-06-2023 14:15-0400 Diastolic blood pressure 84 mm[Hg] Imad Asaad Other [employer] Other 01-06-2023 14:15-0400 Systolic blood pressure 150 mm[Hg] Imad Asaad Other [employer] Other 12-18-2022 12:30-0400 Body height 182.88 cm Anirudh Ball Other [employer] Other 12-18-2022 12:30-0400 Body mass index (BMI) [Ratio] 21.62 kg/m2 Anirudh Ball Other [employer] Other 12-18-2022 12:30-0400 Body weight 72.3 kg Anirudh Ball Other [employer] Other 12-18-2022 12:30-0400 Diastolic blood pressure 69 mm[Hg] Anirudh Ball Other [employer] Other 12-18-2022 12:30-0400 Respiratory rate 12 /min Anirudh Ball Other [employer] Other 12-18-2022 12:30-0400 Systolic blood pressure 114 mm[Hg] Anirudh Ball Other [employer] Other 12-02-2022 11:00-0400 Body height 182.88 cm Anirudh Ball Other [employer] Other 12-02-2022 11:00-0400 Body mass index (BMI) [Ratio] 21.64 kg/m2 Anirudh Ball Other [employer] Other 12-02-2022 11:00-0400 Body weight 72.39 kg Anirudh Ball Other [employer] Other 12-02-2022 11:00-0400 Diastolic blood pressure 83 mm[Hg] Anirudh Ball Other [facility] [employer] Other 12-02-2022 11:00-0400 Respiratory rate 12 /min Anirudh Ball Other [employer] Other 12-02-2022 11:00-0400 Systolic blood pressure 149 mm[Hg] Anirudh Ball Other [facility] [employer] Other 11-25-2022 08:34-0400 Blood Pressure Location Bjian VELAZQUEZ [facility] 11-25-2022 08:34-0400 Diastolic blood pressure 74 mm[Hg] Bijan VELAZQUEZ [facility] 11-25-2022 08:34-0400 Heart rate 69 /min Bijan VELAZQUEZ [facility] 11-25-2022 08:34-0400 Respiratory rate 16 /min Bijan VELAZQUEZ [facility] 11-25-2022 08:34-0400 Systolic blood pressure 137 mm[Hg] Bijan VELAZQUEZ [facility] 09-20-2022 09:30-0500 Body height 182.88 cm Anirudh Ball Other [facility] [employer] Other 09-20-2022 09:30-0500 Body mass index (BMI) [Ratio] 22.46 kg/m2 Anirudh Ball Other [employer] Other 09-20-2022 09:30-0500 Body weight 75.12 kg Anirudh Ball Other [employer] Other 09-20-2022 09:30-0500 Diastolic blood pressure 62 mm[Hg] Anirudh Wang Other [employer] Other 09-20-2022 09:30-0500 Respiratory rate 12 /min Anirudh Wang Other [employer] Other 09-20-2022 09:30-0500 Systolic blood pressure 118 mm[Hg] Anirudh Wang Other [employer] Other Encounters Encounter Date Encounter Type Care Provider Facility Start: 12-27-2024 ambulatory Bijan Tung Weiss ty:[facility] Start: 06-18-2024 End: 06-18-2024 ambulatory [facility] Work Phone: Start: 06-18-2024 End: 06-18-2024 Patient encounter procedure [facility] Work Phone: Start: 06-07-2024 [facility] Start: 05-31-[facility]24 ambulatory [facility] Start: 05-19-2024 End: 05-19-2024 ambulatory [facility] Work Phone: Start: 05-19-2024 End: 05-19-2024 Patient encounter procedure [facility] Work Phone: Start: 05-03-2024 End: 05-03-2024 ambulatory [facility] Work Phone: Start: 05-03-2024 End: 05-03-2024 Patient encounter procedure [facility] Work Phone: Start: 04-30-2024 Office outpatient visit 25 minutes Ashkan [facility] Start: 04-30-2024 [facility] Start[facility] 04-07-2024 End: 04-07-2024 ambulatory [facility] Work Phone: Start: 04-07-2024 End: 04-07-2024 Patient encounter procedure [facility] Work Phone: Start: 04-01-2024 End: 04-01-2024 ambulatory [facility] Work Phone: Start: 04-01-2024 End: 04-01-2024 Patient encounter procedure [facility] Phys[facility] Work Phone: Start: 03-19-2024 Non-patient / Non-visit [facility] Work Phone: Start: 03-18-2024 End: 03-18-2024 ambulatory [facility] Work Phone: Start: 03-18-2024 End: 03-18-2024 Patient encounter procedure [facility] Work Phone: Start: 03-04-2024 End: 03-04-2024 ambulatory [facility] Work Phone: Start: 03-04-2024 End: 03-04-2024 Patient encounter procedure [facility] Work Phone: Start: 01-29-2024 End: 01-29-2024 ambulatory [facility] Work Phone: Start: 01-29-2024 End: 01-29-2024 Patient encounter procedure [facility] Work Phone: Start: 01-01-2024 End: 01-01-2024 ambulatory [facility] Work Phone: Start: 01-01-2024 End: 01-01-2024 Patient encounter procedure [facility] Work Phone: Start: 12-30-2023 End: 12-30-2023 ambulatory [facility] Work Phone: Start: 12-30-2023 End: 12-30-2023 Patient encounter procedure [facility] Work Phone: Start: 12-22-2023 End: 12-23-2023 ambulatory Bijanhoa VELAZQUEZ Facility:[facility] Start: 12-22-2023 End: 12-22-2023 Patient encounter procedure Bijan VELAZQUEZ [facility] Start: 12-16-2023 Non-patient / Non-visit [facility] [facility] Work Phone: Start: 12-10-2023 Non-patient / Non-visit [facility] Physician [facility] Work Phone: Start: 12-09-2023 Non-patient / Non-visit [facility] Physician [facility] Work Phone: Start: 11-28-2023 End: 11-28-2023 ambulatory [facility] Work Phone: Start: 11-28-2023 End: 11-28-2023 Patient encounter procedure [facility] Physician [facility] Work Phone: Start: 11-05-2023 End: 11-05-2023 Patient encounter procedure [facility] Physician [facility] Work Phone: Start: 10-24-2023 End: 10-24-2023 ambulatory [facility] Work Phone: Start: 10-24-2023 End: 10-24-2023 Patient encounter procedure [facility] Physician [facility] Medical [facility] Work Phone: Start: 09-22-2023 End: 09-22-2023 ambulatory Anirudh Wang Other [employer] Other Start: 09-22-2023 Nursing evaluation o f patient and report Anirudh Wang [facility] Start: 09-19-2023 End: 09-19-2023 ambulatory Anirudh Wang Other [employer] Other Start: 09-19-2023 Office outpatient visit 15 minutes Anirudh Wang [facility] Start: 09-19-2023 End: 09-19-2023 Patient encounter procedure [facility] Work Phone: Start: 08-20-2023 End: 08-20-2023 ambulatory Anirudh Wang Other [employer] Other Start: 08-20-2023 Office outpatient visit 15 minutes Anirudh Wang [facility] Start: 08-20-2023 End: 08-20-2023 Patient encounter procedure [facility] Work Phone: Start: 08-06-2023 End: 08-06-2023 ambulatory Anirudh Wang Other [employer] Other Start: 08-06-2023 Telephone encounter Anirudh WING [facility] Start: 07-28-2023 End: 07-28-2023 ambulatory Anirudh Wang Other [employer] Other Start: 07-28-2023 Telephone encounter Anirudh WING [facility] Start: 07-21-2023 End: 07-21-2023 ambulatory Anirudh Wang Other [employer] Other Start: 07-21-2023 Nursing evaluation o f patient and report Anirudh Wang [facility] Start: 07-14-2023 End: 07-14-2023 ambulatory Anirudh Wang Other [employer] Other Start: 07-14-2023 Telephone encounter Anirudh Wang [facility] Start: 05-19-2023 End: 05-19-2023 ambulatory Tricia Weiss Other [employer] Other Start: 05-19-2023 Nursing evaluation o f patient and report Tricia Weiss [facility] Start: 05-19-2023 Telephone encounter Anirudh Wang [facility] Start: 05-16-2023 End: 05-16-2023 ambulatory Imad Asaad Other [employer] Other Start: 05-16-2023 Telephone encounter Imad Asaad [facility] Start: 05-09-2023 End: 05-09-2023 ambulatory Imad Asaad Other [employer] Other Start: 05-09-2023 Telephone encounter [facility]ad As[facility]ad [facility] Start: 05-02-2023 End: 05-02-2023 ambulatory Anirudh Wang Other [employer] Other Start: 05-02-2023 Telephone encounter Anirudh WING [facility] Start: 04-17-2023 End: 04-17-2023 ambulatory Aniruhd Wang Other [employer] Other Start: 04-17-2023 Office outpatient visit 25 minutes Anirudh Wang [facility] Start: 04-14-2023 End: 04-14-2023 ambulatory Imad Asaad Other [employer] Other Start: 04-14-2023 Office outpatient visit 25 minutes Imad Asaad [facility] Start: 04-10-2023 Telephone encounter Anirudh WING [facility] Start: 04-10-2023 End: 04-10-2023 ambulatory Anirudh Wang [employer] Other Start: 04-04-2023 End: 04-04-2023 ambulatory Anirudh Wang Other [employer] Other Start: 04-04-2023 Telephone encounter Anirudh Wang [facility] Start: 04-01-2023 End: 04-01-2023 ambulatory Anirudh Wang Other [employer] Other Start: 04-01-2023 Telephone encounter Anirudh Wang [facility] Start: 03-27-2023 End: 03-27-2023 ambulatory Anirudh Wang Facility:[facility] Start: 03-27-2023 End: 03-27-2023 ambulatory DO Anirudh Wang Work Phone: [facility] Work Phone: Start: 03-27-2023 End: 03-27-2023 Patient encounter procedure DO Anirudh Wang Work Phone: [facility] Work Phone: Start: 02-18-2023 End: 02-18-2023 ambulatory Anirudh Wang Other [employer] Other Start: 02-18-2023 Telephone encounter Anirudh Wang [facility] Start: 02-10-2023 End: 02-10-2023 ambulatory Anirudh Wang Other [employer] Other Start: 02-10-2023 Nursing evaluation o f patient and report Anirudh Wang [facility] Start: 02-05-2023 End: 02-05-2023 ambulatory Anirudh Wang Other [employer] Other Start: 02-05-2023 Office outpatient visit 15 minutes Anirudh Wang [facility] Start: 02-04-2023 End: 02-04-2023 ambulatory WAI DAUGHERTY Facility:[facility] Start: 01-31-2023 End: 01-31-2023 ambulatory Imad Asaad Other [employer] Other Start: 01-31-2023 Telephone encounter Imad Asaad [facility] Start: 01-23-2023 End: 01-23-2023 ambulatory Imad Asaad Facility:[facility] Start: 01-23-2023 End: 01-23-2023 Admission to same day surgery center DO Anirudh Wang Work Phone: [facility] Work Phone: Start: 01-07-2023 End: 01-08-2023 ambulatory IMAD ASAAD Facility:[facility] Start: 01-06-2023 End: 01-06-2023 ambulatory Imad Asaad Other [employer] Other Start: 01-06-2023 Office outpatient ne w 45 minutes Imad Asaad [facility] Start: 01-02-2023 End: 01-02-2023 ambulatory Anirudh Wang Other [employer] Other Start: 01-02-2023 Nursing evaluation o f patient and report Anirudh Felipe [facility] Start: 12-25-2022 Telephone encounter Anirudh Wang MACIEJ [facility] Start: 12-25-2022 End: 12-26-[address] ANIRUDH WANG [facility] [employer] Other Start: 12-18-2022 End: 12-18-2022 ambulatory Anirudh Wang Other [employer] Other Start: 12-18-2022 Office outpatient visit 25 minutes Anirudh Wang [facility] Start: 12-13-2022 End: 12-13-2022 ambulatory Anirudh Wang Other [employer] Other Start: 12-13-2022 Telephone encounter Anirudh Wang MACIEJ [facility] Start: 12-04-2022 End: 12-04-2022 ambulatory Anirudh Wang Other [employer] Other Start: 12-04-2022 Telephone encounter Anirudh WING [facility] Start: 12-02-2022 End: 12-03-[address] ANIRUDH WANG [facility] [employer] Other Start: 12-02-2022 Nursing evaluation o f patient and report Anirudh Wang [facility] Start: 12-02-2022 Office outpatient visit 15 minutes Anirudh Wang [facility] Start: 11-25-2022 End: 11-25-2022 Patient encounter procedure Bijan VELAZQUEZ [facility] Start: 11-18-2022 End: 11-19-[address] BIJAN VELAZQUEZ . Facility:[facility] Start: 10-31-2022 End: 10-31-2022 ambulatory Anirudh Wang Other [employer] Other Start: 10-31-2022 Nursing evaluation o f patient and report Anirudh Wang [facility] Start: 10-08-2022 End: 10-08-2022 ambulatory Anirudh Wang Other [employer] Other Start: 10-08-2022 Telephone encounter Anirudh WING [facility] Start: 09-30-2022 End: 09-30-2022 ambulatory Anirudh Wang Other [employer] Other Start: 09-30-2022 Nursing evaluation o f patient and report Anirudh Wang [facility] Start: 09-27-2022 Encounter for genera l adult medical examination without abnormal findings DR ANIRUDH WANG [facility] Start: 09-27-2022 End: 09-27-2022 ambulatory Anirudh Wang Other [employer] Other Start: 09-27-2022 Telephone encounter Anirudh WING [facility] Start: 09-20-2022 Patient encounter procedure Anirudh Wang [facility] Start: 09-20-2022 End: 09-21-[address] ANIRUDH WANG [facility] [employer] Other Start: 09-20-2022 End: 09-21-2022 Encounter for general adult medical examination without abnormal findings DR ANIRUDH WANG Facility:[facility] Start: 09-17-2021 Adult health examination Anirudh Wang Other [employer] Other Procedures Date Procedure Procedure Detail Performing Clinician Start: 06-07-2024 Dstrj loclzd lesion retina 1/> sess pc Ashkan Costa Shweiki Start: 05-31-2024 Eylea 1mg Pre-filled Syringe Ashkan Costa S hweiki Start: 05-31-2024 Fluorescein angrph w/multiframe i&r uni/bi Ashkan Pacheco Start: 05-31-2024 Fundus Photos No Charge Ashkan Carrera i Start: 05-31-2024 Intravitreal njx pharmacologic agt spx Ashkan Campbellelma Start: 04-30-2024 Computerized ophthalmic imaging retina Ashkan Campbellsonjaelma Start: 01-23-2023 Esophagogastroduodenoscopy DO Anirudh wilkerson Work Phone: Start: 11-18-[address] BIJAN VELAZQUEZ . Comment on above: Performed By: #### CBC #### [facility] [address] [place] [address] Dr. Haley Mays Start: 01-01-2017 Hyperlipidemia screening Anirudh Wang Other Start: 09-08-2013 Laparoscopic cholecystostomy Bijan ENGLAND Start: 09-08-2011 Colonoscopy Bijan VELAZQUEZ Comment on above: 01/2023 Start: 09-08-2011 Esophagogastroduodenoscopy gastric outlet reduction Bijan VELAZQUEZ Start: 09-08-1974 Repair of left inguinal hernia Bijan GRAYSON Depression screening Jona Wang Other Depression screening Jona Wang Other History of operative procedure on knee Bijan VELAZQUEZ Vasectomy Bijan VELAZQUEZ Plan of Treatment Date Care Activity Detail Author Start: 01-01-2024 Patient referral [facility] Work Phone: Start: 01-23-2023 [facility] Patient Education Colon polyps [facility] Work Phone: Patient referral [facility] R [facility] Work Phone: Renal function 2000 panel - Serum or Plasma [facility] Renal function 1999 panel - Serum or Plasma [facility] Immunizations Immunization Date Immunization Notes Care Provider Aurora acosta NEGATED: Highlighted row has not occurred!11-20-2020 influenza virus vaccine, unspecified formulation Bijan VELAZQUEZ [facility] NEGATED: Highlighted row has not occurred!11-22-2019 influenza virus vaccine, live, attenuated, for intranasal use Bijan ANDREEA [facility] Payers Date Payer Category Payer Self-pay 1961 Medicare [id number] 1948 Unknown [id number] 3 1948 Unknown [id number] [id number] 3 1948 Unknown [id number] [id number] 3 1948 Unknown [id number] [id number] 3 1948 Unknown [id number] [id number] 3 1948 Unknown [id number] [id number] 3 1948 Unknown [id number] 2.16.840.1.646013.3.579.2.72 7 1948 Unknown [id number] 2.16.840.1.754432.3.579.2.72 7 1948 Unknown [id number] 2.16.840.1.017442.3.579.2.13 47 1948 Unknown [id number] 2.16.840.1.600036.3.579.2.13 47 1948 Unknown [id number] [id number] 47 1948 Unknown [id number] [id number] 47 Private Health Insurance [employer] Mc[employer] PFFS N on Pt MEBJCPNP [id number] Unknown [id number] [id number] 1 Unknown [id number] [id number] 1 Unknown [id number] [id number] 1 Social History Date Type Detail Facility Sex Assigned At [facility] Start: 11-25-2022 End: 03-18-2024 Tobacco smoking status Never smoked tobacco (finding) [facility] Tobacco smoking status Never [facility] Start: 1950 Sex Assigned At Male [facility] Medical Equipment Procedure Code Equipment Code Equipment Origin al Text Equipment Identifier Dates Repair, hernia, inguinal, with mesh Abdominal hernia surgical mesh, synthetic polymer, non-bioabsorbable ([id number] [facility] Start: 04-10-2023 Goals Date Patient Goal Desired Activity /State Functional Status Date Assessment Result Facility 12-22-2023 Functional Status N/A [facility] 11-25-2022 Functional Status N/A [facility] Clinical Notes 09-20-2022 to 12-22-2023 Note Date & Type Note Facility 12-22-2023 Hospital Discharge instructions Patient Education 12/22/2023 15:16:35 Benign Prostatic Hyperplasia Benign Prostatic Hyperplasia Benign prostatic hyperplasia (BPH) is an enlarged prostate gland that is caused by the normal aging process. The prostate may get bigger as a man gets older. The condition is not caused by cancer. The prostate is a walnut-sized gland that is involved in the production of semen. It is located in front of the rectum and below the bladder. The bladder stores urine. The urethra carries stored urine out of the body. An enlarged prostate can press on the urethra. This can make it harder to pass urine. The buildup of urine in the bladder can cause infection. Back pressure and infection may progress to bladder damage and kidney (renal) failure. What are the causes? This condition is part of the normal aging process. However, not all men develop problems from this condition. If the prostate enlarges away from the urethra, urine flow will not be blocked. If it enlarges toward the urethra and compresses it, there will be problems passing urine. What increases the risk? This condition is more likely to develop in men older than 50 years. What are the signs or [...] urethra. Follow these instructions at home: Take siwy-vqy-eddabql and prescription medicines only as told by your health care provider. Monitor your symptoms for any changes. Contact your health care provider with any changes. Avoid drinking large amounts of liquid before going to bed or out in public. Avoid or reduce how much caffeine or alcohol you drink. Give yourself time when you urinate. Keep all follow-up visits. This is important. Contact a health care provider if: You have unexplained back pain. Your symptoms do not get better with treatment. You develop side effects from the medicine you are taking. Your urine becomes very dark or has a bad smell. Your lower abdomen becomes distended and you have trouble passing urine. Get help right away if: You have a fever or chills. You suddenly cannot urinate. You feel light-headed or very dizzy, or you faint. There are large amounts of blood or clots in your urine. Your urinary problems become hard to manage. You develop moderate to severe low back or flank pain. The flank is the side of your body between the ribs and the hip. These symptoms may be an emergency. Get help right away. Call 911. Do not wait to see if the symptoms will go away. Do not drive yourself to the hospital. Summary Benign prostatic hyperplasia (BPH) is an enlarged prostate that is caused by the normal aging process. It is not caused by cancer. An enlarged prostate can press on the urethra. This can make it hard to pass urine. This condition is more likely to develop in men older than 50 years. Get help right away if you suddenly cannot urinate. This information is not intended to replace advice given to you by your health care provider. Make sure you discuss any questions you have with your health care provider. Document Revised: 03/13/2022 Document Reviewed: 03/13/2022 [employer] Patient Education 2022 [employer]. Follow Up Care 11/25/2022 09:03:23 With:ANDREEA DIXON, Bijan Ruby, URL Address: [facility] [address] [place] [address]- [phone] When: Unknown Comments:1 yr w/ PSA [facility] 11-28-2023 Evaluation note Diagnosis Onset Date Pernicious anemia acute Chronic venous insufficiency of lower extremity acute Primary hypertension acute Stage 3a chronic kidney disease (CKD) [facility] Work Phone: [phone]) 537-357401-15-2024 Evaluation note* Encounter Date Diagnosis Assessment Notes Treatment Notes Treatment Clinical Notes Sep, Pernicious anemia (ICD-10 - D51.0) [employer] Other 01-12-2024 Evaluation note* Encounter Date Diagnosis [...] quality Sep, Pernicious anemia (ICD-10 - D51.0) [employer] Other 12-13-2023 Evaluation note* Encounter Date Diagnosis [...] may cause sedation Recheck in 1 mo [employer] Other 11-20-2023 Evaluation note* Encounter Date Diagnosis Assessment Notes Treatment Notes Treatment Clinical Notes Jul, Primary hypertension (ICD-10 - I10) [employer] Other 11-13-2023 Evaluation note* Encounter Date Diagnosis Assessment Notes Treatment Notes Treatment Clinical Notes Jul, Pernicious anemia (ICD-10 - D51.0) [employer] Other 09-11-2023 Evaluation note* Encounter Date Diagnosis Assessment Notes Treatment Notes Treatment Clinical Notes May, Pernicious anemia (ICD-10 - D51.0) [employer] Other 09-08-2023 Evaluation note* Encounter Date Diagnosis Assessment Notes Treatment Notes Treatment Clinical Notes May, Other osteoporosis without current pathological fracture (ICD-10 - M81.8) [employer] Other 08-10-2023 Evaluation note* Encounter Date Diagnosis [...] softeners for maintenance as well as Metamucil. [employer] Other 08-07-2023 Evaluation note* Encounter Date Diagnosis Assessment Notes Treatment Notes Treatment Clinical Notes Apr, Celiac disease (ICD-10 - K90.0) Patient advised to avoid gluten Apr, Encounter for screening for osteoporosis (ICD-10 - Z13.820) [employer] Other 06-05-2023 Evaluation note* Encounter Date Diagnosis Assessment Notes Treatment Notes Treatment Clinical Notes Feb, Pernicious anemia (ICD-10 - D51.0) [employer] Other 05-31-2023 Evaluation note* Encounter Date Diagnosis Assessment Notes Treatment Notes Treatment Clinical Notes January, Pernicious anemia (ICD-10 - D51.0) Continue monthly B12 injections January, Celiac disease (ICD-10 - K90.0) Continue Gluten free diet f/u GI January, Chronic idiopathic constipation (ICD-10 - K59.04) Miralax and Amitiza didn't help. Using Supp every 72 hours as needed. Push fluids [employer] Other 05-26-2023 Evaluation note* Encounter Date Diagnosis Assessment Notes Treatment Notes Treatment Clinical Notes January, Celiac disease (ICD-10 - K90.0) [employer] Other 05-01-2023 Evaluation note* Encounter Date Diagnosis [...] January, Iron deficiency anemia (ICD-10 - D50.9) [employer] Other 04-27-2023 Evaluation note* Encounter Date Diagnosis Assessment Notes Treatment Notes Treatment Clinical Notes Dec, Pernicious anemia (ICD-10 - D51.0) [employer] Other 04-12-2023 Evaluation note* Encounter Date Diagnosis [...] schedule CT scan to r/o obstructing mass [employer] Other 03-27-2023 Evaluation note* Encounter Date Diagnosis Assessment Notes Treatment Notes Treatment Clinical Notes Nov, Pernicious anemia (ICD-10 - D51.0) [employer] Other 03-27-2023 Evaluation note* Encounter Date Diagnosis [...] adequate fluid balance and to avoid dehydration. [employer] Other 03-20-2023 Hospital Discharge instructions Patient Education [...] urethra. Follow these instructions at home: Take zyyg-zab-qzwjilm and prescription medicines only as told by [...] 08/25/2006 Document Revised: 07/20/2019 Document Reviewed: 09/29/2017 [employer] Patient Education [employer]. Follow Up Care 11/23/2021 08:51:05 With:ANDREEA DIXON, Bijan Ruby, URL Address: [facility] [address], [place] [address]- When: Unknown [facility] 02-23-2023 Evaluation note* Encounter Date Diagnosis Assessment Notes Treatment Notes Treatment Clinical Notes Oct, Pernicious anemia (ICD-10 - D51.0) [facility] [employer] Other 01-23-2023 Evaluation note* Encounter Date Diagnosis Assessment Notes Treatment Notes Treatment Clinical Notes Sep, Pernicious anemia (ICD-10 - D51.0) [employer] Other 01-20-2023 Evaluation note* Encounter Date Diagnosis Assessment Notes Treatment Notes Treatment Clinical Notes Sep, Anemia, unspecified type (ICD-10 - D64.9) [employer] Other 01-13-2023 Evaluation note* Encounter Date Diagnosis Assessment Notes Treatment Notes Treatment Clinical Notes 13 Virgil, 2023 Essential hypertensi on (ICD-10 - I10) This [...] High risk medication use (ICD-10 - Z79.899) [employer] Other Evaluation + Plan note Future Appointments Appointment Date:11/28/2023 08:30:00 AM Scheduled Provider:Bijan VELAZQUEZ MD Location:[facility] Appointment Type:URO Office Visit Diagnostic Tests Pending * PSA Total 11/25/22 [facility] evaluation + Plan note Future Appointments Appointment Date:12/27/2024 09:45:00 AM Scheduled Provider:Bijan VELAZQUEZ MD Location:[facility] Appointment Type:URO Office Visit Diagnostic Tests Pending * PSA Total 12/22/23 [facility] evalbpwhsu noteNo InformationNort Canara Other evaluation noteNo assessment information available [facility] Work Phone: evaluation note* Diagnosis Onset Date Resolution Status Pernicious anemia acute Chronic venous insufficiency of lower extremity acute Primary hypertension acute [facility] Work Phone: evaluation note* Diagnosis Onset Date Resolution Status Pernicious anemia acute Chronic venous insufficiency of lower extremity acute Primary hypertension acute Benign prostatic hyperplasia with lower urinary tract symptoms acute Celiac disease acute Chronic kidney disease acute Chronic venous insufficiency of lower extremity acute KEVIN (generalized anxiety disorder) acute Primary hypertension acute Medicare annual wellness visit, subsequent noneactive [facility] Work Phone: evaluation note* Diagnosis Onset Date Resolution Status Chronic venous insufficiency of lower extremity acute Primary hypertension acute Benign prostatic hyperplasia with lower urinary tract symptoms acute Celiac disease acute Chronic kidney disease acute Chronic venous insufficiency of lower extremity acute KEVIN (generalized anxiety disorder) acute Primary hypertension acute Medicare annual wellness visit, subsequent noneactive [facility] Work Phone: evaluation note* Diagnosis Onset Date Resolution Status Benign prostatic hyperplasia with lower urinary tract symptoms acute Celiac disease acute Chronic kidney disease acute Chronic venous insufficiency of lower extremity acute KEVIN (generalized anxiety disorder) acute Primary hypertension acute Medicare annual wellness visit, subsequent noneactive [facility] Work Phone: evaluation note* Diagnosis Onset Date Resolution Status Benign prostatic hyperplasia with lower urinary tract symptoms acute Celiac disease acute Chronic kidney disease acute Chronic venous insufficiency of lower extremity acute KEVIN (generalized anxiety disorder) acute Primary hypertension acute Medicare annual wellness visit, subsequent noneactive Benign prostatic hyperplasia with lower urinary tract symptoms acute Chronic kidney disease acute [id number] acute Other osteoporosis without c urrent pathological fracture acute Pernicious anemia acute Retinal vein occlusion of right eye acute [facility] Work Phone: Evaluation note* Diagnosis Onset Date Resolution Status Benign prostatic hyperplasia with lower urinary tract symptoms acute Chronic kidney disease acute [id number] acute Pernicious anemia acute Retinal vein occlusion of right eye acute Benign prostatic hyperplasia with lower urinary tract symptoms acute Chronic kidney disease acute [id number] acute Pernicious anemia acute Retinal vein occlusion of right eye acute [facility] Work Phone: Evaluation note* Diagnosis Onset Date Resolution Status Benign prostatic hyperplasia with lower urinary tract symptoms acute Chronic kidney disease acute [id number] acute Pernicious anemia acute Retinal vein occlusion of right eye acute Benign prostatic hyperplasia with lower urinary tract symptoms acute Chronic kidney disease acute [id number] acute Pernicious anemia acute Retinal vein occlusion of right eye acute Vitamin D deficiency acute [facility] Work Phone: Evaluation note* Diagnosis Onset Date Resolution Status Benign prostatic hyperplasia with lower urinary tract symptoms acute Chronic kidney disease acute [id number] acute Pernicious anemia acute Retinal vein occlusion of right eye acute Benign prostatic hyperplasia with lower urinary tract symptoms acute Chronic kidney disease acute [id number] acute Pernicious anemia acute Retinal vein occlusion of right eye acute Vitamin D deficiency acute Benign prostatic hyperplasia with lower urinary tract symptoms acute Celiac disease acute Chronic kidney disease acute Chronic venous insufficiency of lower extremity acute KEVIN (generalized anxiety disorder) acute Primary hypertension acute [facility] Work Phone: Evaluation note* Diagnosis Onset Date Resolution Status Benign prostatic hyperplasia with lower urinary tract symptoms acute Chronic kidney disease acute [id number] acute Pernicious anemia acute Retinal vein occlusion of right eye acute Vitamin D deficiency acute Benign prostatic hyperplasia with lower urinary tract symptoms acute Celiac disease acute Chronic kidney disease acute Chronic venous insufficiency of lower extremity acute KEVIN (generalized anxiety disorder) acute Primary hypertension acute [facility] Work Phone: History general Narrative - Reported* [...] CATARACT ECTRACTION, BILATERAL Hospitalization History SEE ABOVE [employer] Other [facility] general Narrative - Reported* Type Description Date [...] polypectomy 01/25 23 Hospitalization History SEE ABOVE [employer] Other History general Narrative - [facility] Other History general Narrative - Reported* Type [...] inguinal hernia 04/2023 Hospitalization History SEE ABOVE [employer] Other History general Narrative - Reported* Type [...] inguinal hernia 04/2023 Hospitalization History SEE ABOVE [employer] Other Hospital course Narrative No data available for this section [facility] Discharge instructionsAmbulatory Orders* Referral to Nephrology Location: None Selected [facility] Work Phone: Progress note No data available for this section [facility] reason for referral (narrative)* Reason *Waiting for appt Referral to confirm Celiac disease Diagnosis 1 Celiac disease (K90. 0) Referral Organization [facility]erring Provider First Name Anirudh Referring Provider Last Name [facility] Referring Provider Specialty Internal Me dicine Referred Organization [facility] Gastroenterolo gy Referred Provider Zeeshan Joe Referred Address [address],[id number] Referred Provider Specialty Gastroentero logy Referral Priority Routine General Notes Sanam Guido 11:00:10 AM >RECEIVED TODAY, SENT P2P [employer] Other Summary Purpose Family History Relationship Condition Age at Onset Recorded Date/T jj father Carcinoma of peritoneum Unknown Not Specified Hypertension Unknown Relationship Condition Age at Onset Recorded Date/T jj father Carcinoma of peritoneum Unknown Not Specified Hypertension Unknown father Heart disease Unknown Relationship Condition Age at Onset Recorded Date/T jj father Carcinoma of peritoneum Unknown Heart disease Unknown Not Specified Hypertension Unknown Relationship Condition Age at Onset Recorded Date/T jj father Carcinoma of peritoneum Unknown Heart disease Unknown mother Hypertension Unknown Advance Directives Advance Directive Response [...] hypertension Stage 3a chronic kidney disease (CKD) Chief Complaint B-12 SHOT swelling, increased weight B-12 SHOT B12 Reason for Visit Pernicious anemia Chronic venous insufficiency of lower extremity Primary hypertension Chief Complaint B-12 SHOT swelling, increased weight B-12 SHOT B12 Medicare Wellness Reason for Visit Pernicious anemia Chronic venous insufficiency of lower extremity Primary hypertension Benign prostatic hyperplasia with lower urinary tract symptoms Celiac disease Chronic kidney disease Chronic venous insufficiency of lower extremity KEVIN (generalized anxiety disorder) Primary hypertension Medicare annual wellness visit, subsequent Chief Complaint swelling, increased weight B-12 SHOT B12 Medicare Wellness B12 Reason for Visit Chronic venous insuf ficiency of lower extremity Primary hypertension Benign prostatic hyperplasia with lower urinary tract symptoms Celiac disease Chronic kidney disease Chronic venous insufficiency of lower extremity KEVIN (generalized anxiety disorder) Primary hypertension Medicare annual wellness visit, subsequent Chief Complaint B12 Medicare Wellness B12 B12 Shot Reason for Visit Benign prostatic hyp erplasia with lower urinary tract symptoms Celiac disease Chronic kidney disease Chronic venous insufficiency of lower extremity KEVIN (generalized anxiety disorder) Primary hypertension Medicare annual wellness visit, subsequent Chief Complaint B12 Medicare Wellness B12 B12 Shot RENAL CKD Reason for Visit Benign prostatic hyp erplasia with lower urinary tract symptoms Celiac disease Chronic kidney disease Chronic venous insufficiency of lower extremity KEVIN (generalized anxiety disorder) Primary hypertension Medicare annual wellness visit, subsequent Benign prostatic hyperplasia with lower urinary tract symptoms Chronic kidney disease [id number] Other osteoporosis without current pathological fracture Pernicious anemia Retinal vein occlusion of right eye Chief Complaint B12 B12 Shot RENAL CKD RENAL 2 WK F/U Reason for Visit Benign prostatic hyp erplasia with lower urinary tract symptoms Chronic kidney disease [id number] Pernicious anemia Retinal vein occlusion of right eye Benign prostatic hyperplasia with lower urinary tract symptoms Chronic kidney disease [id number] Pernicious anemia Retinal vein occlusion of right eye Chief Complaint B12 B12 Shot RENAL CKD RENAL 2 WK F/U B12 shot Reason for Visit Benign prostatic hyp erplasia with lower urinary tract symptoms Chronic kidney disease [id number] Pernicious anemia Retinal vein occlusion of right eye Benign prostatic hyperplasia with lower urinary tract symptoms Chronic kidney disease [id number] Pernicious anemia Retinal vein occlusion of right eye Vitamin D deficiency Chief Complaint B12 Shot RENAL CKD RENAL 2 WK F/U B12 shot 4 month check up Reason for Visit Benign prostatic hyp erplasia with lower urinary tract symptoms Chronic kidney disease [id number] Pernicious anemia Retinal vein occlusion of right eye Benign prostatic hyperplasia with lower urinary tract symptoms Chronic kidney disease [id number] Pernicious anemia Retinal vein occlusion of right eye Vitamin D deficiency Benign prostatic hyperplasia with lower urinary tract symptoms Celiac disease Chronic kidney disease Chronic venous insufficiency of lower extremity KEVIN (generalized anxiety disorder) Primary hypertension Chief Complaint B12 Shot RENAL CKD RENAL 2 WK F/U B12 shot 4 month check up B 12 Shot Reason for Visit Benign prostatic hyp erplasia with lower urinary tract symptoms Chronic kidney disease [id number] Pernicious anemia Retinal vein occlusion of right eye Benign prostatic hyperplasia with lower urinary tract symptoms Chronic kidney disease [id number] Pernicious anemia Retinal vein occlusion of right eye Vitamin D deficiency Benign prostatic hyperplasia with lower urinary tract symptoms Celiac disease Chronic kidney disease Chronic venous insufficiency of lower extremity KEVIN (generalized anxiety disorder) Primary hypertension Chief Complaint RENAL 2 WK F/U B12 shot 4 month check up B 12 Shot b12 shot Reason for Visit Benign prostatic hyp erplasia with lower urinary tract symptoms Chronic kidney disease [id number] Pernicious anemia Retinal vein occlusion of right eye Vitamin D deficiency Benign prostatic hyperplasia with lower urinary tract symptoms Celiac disease Chronic kidney disease Chronic venous insufficiency of lower extremity KEVIN (generalized anxiety disorder) Primary hypertension Additional Source Comments REASON FOR VISIT (unrecogniz ed section and content) WELLNESS MBLab ResultsB-12 S hot mbmedicationB-12 ShotB-12 ShotDigestive System IssuesCeliac resultsReferralMultiple IssuesBloating/GasIncreased PainB-12 ShotCONSULT FOR CELIAC DISEASESENDING LABS1 week follow upB-12 ShotmessageLab resultsNo InformationPATIENT IS HERE FOR FOLLOW UP TO DISCUSS CELIAC DISEASE6 month Follow up -b12Lab ResultsGASTRO CONSULTNo InformationB-12 ShotRefillDEXA [id number] QuestionHigh BP1 month Follow up1 month Follow upB-12 SHOT Patient Care team informatio n (unrecognized section and content) Team Status: Active Member Role Status Dates Anirudh Wang DO Primary Care Provider Active Team Status: Inactive Member Role Status Dates Anirudh Wang DO Primary Care Provider Active Start: December 30, 2023 End: December 30, 2023 Tricia Weiss MD Attending Provider Active St art: December 30, 2023 End: December 30, 2023 Team Status: Inactive Member Role Status Dates Anirudh Wang DO Primary Care Provide r, Attending Provider Active Start: January 01, 2024 End: January 01, 2024 Team Status: Inactive Member Role Status Renato Wang DO Primary Care Provide r, Attending Provider Active Start: January 29, 2024 End: January 29, 2024 Team Status: Inactive Member Role Status Renato Wang DO Primary Care Provide r, Attending Provider Active Start: March 04, 2024 End: March 04, 2024 Team Status: Inactive Member Role Status Renato Wang DO Primary Care Provide r, Referring Provider Active Start: March 18, 2024 End: March 18, 2024 Billy Mata MD Attending Provider Active Start : March 18, 2024 End: March 18, 2024 Team Status: Active Member Role Status Renato Wang DO Primary Care Provide r, Attending Provider Active Start: December 09, 2023 Team Status: Active Member Role Status Renato Wang DO Primary Care Provide r, Attending Provider Active Start: December 10, 2023 Team Status: Active Member Role Status Renato Wang DO Primary Care Provide r, Attending Provider Active Start: December 16, 2023 Team Status: Inactive Member Role Status Renato Pretty MD Attending Provider Active Anirudh Wang [...] November 28, 2023 End: November 28, 2023 Team Status: Active Member Role Status Renato Wang DO Primary Care Provider Active Start: March 19, 2024 Billy Mata MD Attending Provider Active Start : March 19, 2024 Team Status: Inactive Member Role Status Renato Wang DO Primary Care Provider Active Start: April 01, 2024 End: April 01, 2024 Billy Mata MD Attending Provider Active Start : April 01, 2024 End: April 01, 2024 Team Status: Inactive Member Role Status Dates Anirudh Wang , DO Primary Care Provide r, Attending Provider Active Start: April 07, 2024 End: April 07, 2024 Team Status: Inactive Member Role Status Dates Anirudh Wang , DO Primary Care Provide r, Attending Provider Active Start: May 03, 2024 End: May 03, 2024 Team Status: Inactive Member Role Status Dates Anirudh Wang , DO Primary Care Provide r, Attending Provider Active Start: May 19, 2024 End: May 19, 2024 Team Status: Inactive Member Role Status Dates Anirudh Wang , DO Primary Care Provide r, Attending Provider Active Start: June 18, 2024 End: June 18, 2024 (unrecognized sect ion and content) No Status Records FoundNo Status Records FoundNo Status Records FoundNo Status Records Found INFORMATION SOURCE (unrecogn ized section and content) DATE CREATED AUTHOR 02/14/2023 [facility] DATE CREATED AUTHOR AUTHOR'S ORGANIZ ATION 04/21/2023 [facility] DATE CREATED AUTHOR AUTHOR'S ORGANIZ ATION 12/31/[address] [facility] DATE CREATED AUTHOR AUTHOR'S ORGANIZ ATION 06/11/2024 [facility] Goals (unrecognized section and content) Goals may [...] BE BASED ON THE PRIMARY CLINICAL RECORDS. [employer] provides no warranty or guarantee of the accuracy or completeness of information in this document.
[2024-06-22 09:24] LABS: Bilirubin Urine NEGATIVE (NEGATIVE); Blood Urine NEGATIVE (NEGATIVE); Clarity Urine CLEAR (CLEAR); Color Urine LT. YELLOW (YELLOW); Glucose Urine UA NEGATIVE (NEGATIVE); Ketones Urine NEGATIVE (NEGATIVE); Leukocyte Esterase Urine NEGATIVE (NEGATIVE); Nitrite Urine NEGATIVE (NEGATIVE); Protein Urine NEGATIVE (NEG/TRACE); Specific Gravity Urine 1.015 (1.005-1.025); Urobilinogen Urine 0.2 EU/dL (0.2-1.0)
[2024-06-22 09:33] LABS: Hematocrit 45.1 % (42.0-54.0); Hemoglobin 14.6 g/dL (14.0-18.0); Mean Corpuscular HGB Conc 32.4 g/dL (29.9-35.2); Mean Corpuscular Hemoglobin 31.2 pg (25.9-34.0); Mean Corpuscular Volume 96.4 fL (80.0-94.0); Mean Platelet Volume 9.8 fL (9.5-13.5); Platelet Count 234 10^3/uL (150-450); Red Blood Count 4.68 10^6/uL (4.70-6.10); Red Cell Distribution Width 12.6 % (11.0-15.0); White Blood Count 5.1 10^3/uL (4.0-11.0)
[2024-06-22 10:52] LABS: Bacteria Urine TRACE #/HPF (NONE SEEN); Cast Seen? NONE SEEN #/LPF (NONE SEEN); Crystals Seen? None Seen #/HPF (None Seen); Mucus Urine NONE SEEN (NONE SEEN); RBC Urine NONE SEEN #/HPF (0-2); Squamous Epithelial Cell Urine RARE #/LPF (NONE/RARE); WBC Urine NONE SEEN #/HPF (NONE SEEN)
[2024-06-22 11:06] LABS: Creatinine Urine Random 104.02 mg/dL (20.00-300.00); Total Protein Urine Random 21.1 mg/dL (<=11.9)
[2024-06-22 11:13] LABS: Albumin Level 3.9 g/dL (3.4-5.0); Anion Gap 12.1; BUN Creatinine Ratio 15.6; Calcium 9.2 mg/dL (8.5-10.1); Carbon Dioxide 28.9 mmol/L (21.0-32.0); Chloride 105 mmol/L (98-107); Estimated GFR (African America 49 (>=60 mL/min/1.73m^2); Estimated GFR (Non-African Ame 40 (>=60 mL/min/1.73m^2); Glucose 121 mg/dL (74-106); Magnesium 2.2 mg/dL (1.8-2.4); Phosphorus 2.5 mg/dL (2.6-4.7); Sodium 141 mmol/L (136-145); Uric Acid 6.9 mg/dL (3.5-7.2)
[2024-06-22 11:40] LABS: Percent Iron Saturation 30.3 %
[2024-06-23 11:13] LABS: PTH, Intact 41 pg/mL (15-65)
== END 2024-06-22 08:25 | disposition home or self-care (01) ==
LOC: LAB 08:28
PROVIDERS: PCP Internal Medicine; Visit Provider Internal Medicine
DX: H34.8112 Central retinal vein occlusion, right eye, stable (principal); I12.9 Hypertensive chronic kidney disease with stage 1 through stage 4 chronic kidney disease, or unspecified chronic kidney disease; N40.1 Benign prostatic hyperplasia with lower urinary tract symptoms; N18.9 Chronic kidney disease, unspecified; D51.0 Vitamin B12 deficiency anemia due to intrinsic factor deficiency
CPT/HCPCS: 36415; 80069; 81001; 82570; 82728; 83540; 83550; 83735; 83970; 84156; 84550; 85027

== ENCOUNTER 2024-10-14 10:20 | Outpatient (OUT) | payer MEDICARE, SELFPAY ==
--- OUTSIDE RECORDS SUMMARY | 2024-10-14 10:34 | XMS_ITS | CCD ---
Author Organization [facility] [place] [facility] Team Providers Care Biodiesel Process Control Technician Name Role Phone Anirudh Wang Unavailable ANIRUDH WANG Primary Care Physician [phone] Asaad, Imad Unavailable ANDREEA Mcguire, DR STEVENSON Attending Unavailable ANDREEA ., DR STEVENSON Consulting Unavailable ANDREEA ., DR STEVENSON Admitting Unavailable ADELINE, DR OLEARY Primary Care Unavailable BALL, DR OLEARY Admitting Unavailable BALL, DR OLEARY Attending Unavailable BALL, DR OLEARY Consulting Unavailable ADELINE, DR OLEARY Primary Care Unavailable ASAAD, IMAD Admitting Unavailable BALL, DR OLEARY Primary Care Unavailable ASAAD, VAUGHN Attending Unavailable DEVI, VAUGHN Consulting Unavailable WAI DAUGHERTY Attending Unavailable WAI DAUGHERTY Admitting Unavailable SHIRA, DR RUSTY Aguilera Consulting Unavailable ADELINE, DR OLEARY Primary Care Unavailable WAI DAUGHERTY Consulting Unavailable ADELINE, DR OLEARY Admitting Unavailable ADELINE, DR OLEARY Attending Unavailable ADELINE, DR OLEARY Consulting Unavailable ADELINE, DR OLEARY Primary Care Unavailable COURTNEY GILL Consulting Unavailable ADELINE, DR OLEARY Admitting Unavailable BALL, DR OLEARY Attending Unavailable BALL, DR OLEARY Consulting Unavailable ADELINE, DR OLEARY Primary Care Unavailable MD Vaughn Pretty Attending Provider [phone] DO Anirudh Wang Primary Care Provider MD Ryan Cornell Attending Provider [phone] Asaad, Imad Attending Unavailable Anirudh Wang Primary Care Unavailable Devi, Imadolfo Admitting Unavailable Anirudh Wang Primary Care Unavailable Ryan Cornell Admitting Unavailable Ryan Cornell Attending Unavailable Anirudh Wang Primary Care Unavailable Ryan Cornell Admitting Unavailable Ryan Cornell Attending Unavailable Tricia Weiss Unavailable Graham VELAZQUEZ Attending Unavailable Graham VELAZQUEZ Attending Unavailable Igor ShAshkan pratt Attending Unavailable Al ShweikiAshkan Referring Unavailable Al Shweiki, Ashkan Attending Unavailable Igor Boswell, Ashkan Referring Unavailable Igor Boswell, Ashkan Attending Unavailable Igor Boswell, Ashkan Referring Unavailable Igor Boswell Ashkan Attending Unavailable Igor Boswell, Ashkan Attending Unavailable Igor Boswell, Ashkan Referring Unavailable Igor Boswell MD, Ashkan Unavailable Unavailabl e Allergies Allergy Classification Reported Allergen(s) Allergy Type Date of Onset Reaction(s) Facility (20 sources) Doxycycline Drug Allergy Unknown [facility] Other (4 sources) patient allergy list reviewed by nurse or physicia Propensity to adverse reactions 9 Comment:Done [facility] Other (1 source) Doxycycline Drug Allergy Unknown [facility] Other (1 source) Amoxicillin; Translations: [amoxicillin] Drug Allergy 7 Unknown [facility] Physicians Medications Current Medications Medication Drug Class(es) Dates Sig (Normalized) Sig (Original) amLODIPine 5 mg oral tablet (20 sources) Dihydropyridine Calcium Channel Valdez Start: 11-25-2022 take 1 tablet by mouth once daily in the evening Amlodipine 5 mg tablet Active 5 MG PO Every evening January 22, 2023 11:00pm aspirin 81 mg delayed release oral tablet (19 sources) Platelet Aggregation Inhibitor, Nonsteroidal Anti-inflammatory Drug Start: 10-24-2023 take 1 tablet by mouth once daily Aspirin 81 mg tablet,delayed release (DR/EC) Active 81 MG PO Daily October 24, 2023 12:00am take 1 tablet by leidy th every twenty-four hours Aspirin 81 81 MG 1 tablet Orally Once a day Active benazepril hydrochloride 10 mg oral tablet (20 sources) Angiotensin Converting Enzyme Inhibitor Start: 01-23-2023 End: 01-29-2024 take 1 tablet by mouth once daily Benazepril 10 mg tablet Active 10 MG PO Daily 90 90 January 29, 2024 2:40pm Start: 11-11-2019 take 1 mg by mouth once daily benazepril 5 mg oral tablet mg tab(s), Oral, Daily, Refills(s) 0 Start Date: 11/11/19 Status: Ordered calcium carbonate 1500 mg / cholecalciferol 500 unt oral capsule (10 sources) Vitamin D Start: 03-18-2024 take 1 capsule by mouth once daily Calcium Carbonate-Vitamin D3 (Calcium 600 With Vitamin D3) 600 mg-12.5 mcg (500 unit) capsule Active 1 CAP PO daily March 17, 2024 11:00pm dextran 70 1 mg/ml / hypromellose 3 mg/ml ophthalmic solution (1 source) Plasma Volume Older Adult Social Work Specialist Artificial Tears (PF ) drops in a dropperette - Active escitalopram 10 mg oral tablet (20 sources) Serotonin Reuptake Inhibitor Start: 06-14-2024 End: 08-31-2024 take 1 tablet by mouth once daily Escitalopram Oxalate 10 mg tablet Active 0 .ROUTE .COMPLEX 90 August 31, 2024 9:07am TAKE 1 TABLET BY MOUTH EVERY DAY FOR 30 DAYS Start: 05-03-2024 End: 06-14-2024 take 1 tablet by mouth once daily Escitalopram Oxalate 10 mg tablet Discontinued 10 MG PO Daily May 03, 2024 8:45am June 14, 2024 7:43am Start: 12-22-2023 escitalopram 1 0 mg Tab Refills(s) 0 Start Date: 12/22/23 Status: Ordered Start: 12-15-2023 End: 05-03-2024 take 1 tablet by mouth once daily Escitalopram Oxalate 10 mg tablet Discontinued 0 .ROUTE .COMPLEX December 15, 2023 6:28pm May 03, 2024 8:45am TAKE 1 TABLET BY MOUTH EVERY DAY FOR 30 DAYS Start: 10-24-2023 End: 12-15-2023 take 1 tablet by mouth once daily Escitalopram Oxalate 10 mg tablet Discontinued 10 MG PO Daily October 24, 2023 12:00am December 15, 2023 6:29pm FreeTextSi tablet Orally Once a day; Note: Source Status: Taking; Refills: 5; Provider: Adeline Her Start: 08-20-2023 take 1 tablet by leidy th every twenty-four hours Escitalopram Oxalate 10 MG 1 tablet Orally Once a day for 30 days Aug, Active indomethacin 50 mg oral capsule (20 sources) Nonsteroidal Anti-inflammatory Drug take 1 capsule by mouth every twelve hours Indomethacin 50 MG 1 capsule with food or milk Orally Twice a day Active ketorolac tromethamine 4 mg/ml ophthalmic solution (2 sources) Nonsteroidal Anti-inflammatory Drug, Cyclooxygenase Inhibitor Start: End: take 1 drop(s) into the eye(s) three times daily ketorolac 0.4 % eye drops instill 1 drop by ophthalmic route 3 times every day into the left eye - Active substitutions are acceptable Comment on above: substitutions are ac ceptable lubiprostone 0.008 mg oral capsule (7 sources) Chloride Channel Activator Start: take 1 capsule by mouth twice daily at mealtime Lubiprostone 8 MCG 1 capsule with food and water Orally Twice a day for 30 days January, Active mineral oil 0.15 mg/mg / petrolatum 0.83 mg/mg ophthalmic ointment (1 source) Artificial Eye Lubricant 83 %-15 % ointment - Active MiraLax 17 GM/SCOOP (12 sources) Start: Start: 12-18-2022 take 17 g by mouth [...] (20 sources) alpha-Adrenergic Valdez Start: 05-03-2024 take 1 capsule by mouth once daily at bedtime Tamsulosin 0.4 mg capsule Active 0.4 MG PO Daily at bedtime 90 90 May 02, 2024 11:00pm Start: 11-25-2022 End: 03-18-2024 take 1 capsule by mouth once daily Tamsulosin (Flomax) 0.4 mg capsule Discontinued 0.4 MG PO Daily October 24, 2023 12:00am March 18, 2024 1:26pm vitamin B12 (2 sources) Vitamin B12 Start: 11-22-2019 Vitamin B12 Re fills(s) 0 Start Date: 11/22/19 Status: Ordered Vitamin D (2 sources) Start: 11-20-2020 Vitamin D Inte rnational_Unit, Oral, Daily, Refills(s) 0 Start Date: 11/20/20 Status: Ordered Completed/Discontinued Medications Medication Drug Class(es) Dates Sig (Normalized) Sig (Original) acetaminophen 325 mg / HYDROcodone bitartrate 5 mg oral tablet (16 sources) Opioid Agonist Start: 04-10-2023 End: 10-24-2023 take 1 tablet by mouth every six hours as needed for pain Hydrocodone-Acetami nophen 5-325 mg tablet Discontinued 1 TAB PO Q6H as needed for pain 25 01April 10, 2023 October 24, 2023 9:55am alendronic acid 70 mg oral tablet (20 [...] a day for 30 days May, Active Alendronate 70 mg tablet, effervescent (2 sources) Start: 10-24-2023 End: 03-18-2024 Alendronate 70 mg tablet, effervescent Discontinued 70 MG PO Daily October 24, 2023 12:00am March 18, 2024 1:26pm 1 tablet 30 minutes before the first food, beverage or medicine of the day dissolved in 4 ounces of water B-12 - up to 1000 mcg (20 [...] 1000 mcg cholecalciferol 0.025 mg oral tablet (17 sources) Vitamin D Start: 03-27-2023 End: 10-24-2023 take 1 tablet by mouth once daily Cholecalciferol (Vitamin D3) (Vitamin D3) 25 mcg (1,000 unit) Tablet Discontinued 1000 UNIT PO Daily March 26, 2023 11:00pm October 24, 2023 9:54am Cyanocobalamin (Vitamin B-12) (Vitamin B-12) 100 mcg/mL Solution (17 sources) Start: 03-27-2023 End: 10-24-2023 Cyanocobalamin (Vitamin B-12) (Vitamin B-12) 100 mcg/mL Solution Discontinued 0 .ROUTE .COMPLEX March 26, 2023 11:00pm October 24, 2023 9:54am patient reports vitatmin b-12 shot once a month, unaware of dosage Start: 03-27-2023 End: 10-24-2023 Cyanocobalamin (Vitamin B-12 ) (Vitamin B-12) 100 mcg/mL Solution Discontinued 0 [...] sources) Start: 09-27-2022 End: 01-29-2024 take 1 tablet by mouth once daily Folic Acid 1 mg tablet Discontinued 1 MG PO Daily January 22, 2023 11:00pm January 29, 2024 2:40pm Start: 11-22-2019 take 1 tablet by leidy th once daily folic acid 0.4 mg Tab 0.4 mg = 1 tab(s), Oral, Daily, # 100 tab(s), Refills(s) 0 Start Date: 11/22/19 Status: Ordered LORazepam 0.5 mg oral tablet (20 sources) Benzodiazepine Start: 10-24-2023 End: 03-18-2024 take 1 tablet by mouth every six hours Lorazepam 0.5 mg tablet Discontinued 0.5 MG PO Every 6 hours 60 30 January 01, 2024 8:55am March 18, 2024 1:26pm Start: 08-20-2023 take 0.5-1 tablets b y [...] specified diseases of gallbladder] 12-18-2020 Episodic Cataract (20 sources) Age-related nuclear cataract, left eye; Translations: [...] Essential hypertension; Translations: [Essential (primary) hypertension] Onset: 01-20-2023 Chronic Genitourinary symptoms and ill-defined conditions (2 [...] Translations: [Other chest pain] Episodic Nutritional deficiencies (16 sources) Vitamin D deficiency; Translations: [Vitamin D deficiency, unspecified] 04-03-2024 Chronic Osteoporosis (20 sources) Osteoporosis; Translations: [Other osteoporosis without current pathological fracture] Chronic Other aftercare (2 sources) Other group home (current) drug therapy; Translations: [OTH INSOLE TACKER CURRENT DRUG THERAPY] Onset: 02-05-2023 Episodic Other diseases of veins and lymphatics (15 sources) Venous insufficiency of leg; Translations: [Venous insufficiency (chronic) (peripheral)] 11-05-2023 Episodic Other diseases of veins and lymphatics (15 sources) Venous insufficiency (chronic) (peripheral); Translations: [Venous [...] Comment on above: Bilateral Other eye disorders (19 sources) Vitreous degeneration, bilateral Chronic Other eye disorders (2 sources) Unspecified ptosis of bilateral eyelids; Translations: [Ptosis, bilateral] Onset: 04-30-2024 Episodic Other eye disorders (1 source) Dry eyes; Translations: [Dry eyes] Episodic Other eye disorders (1 source) Ptosis of eyelid; Translations: [Ptosis of eyelid] Episodic Other eye disorders (1 source) Dry eye syndrome of bilateral lacrimal glands; Translations: [Dry eyes, bilateral] Episodic Other gastrointestinal disorders (20 sources) Celiac disease; Translations: [Celiac disease] Onset: 12-02-2022 11-22-2019 Chronic Other gastrointestinal disorders (20 sources) Celiac disease; [...] lung field] Episodic Other nervous system disorders (16 sources) Acute postoperative pain; Translations: [Other acute postprocedural pain] 08-20-2023 Episodic Comment on above: Problem List clean-u p per request of Phys. EHR Cmte Other nutritional; endocrine; and metabolic disorders (20 [...] occlusion, left eye, with macular edema] Onset: 12-11-2016 12-18-2020 Chronic Comment on above: left eye [...] Translations: [Pneumonia, unspecified organism] Onset: 01-02-2019 Episodic Unclassified (10 sources) BRVO (chief complaint) Onset: 07-12-2020 Resolved: 08-30-2024 Unclassified (1 source) BRVO with ME (chief complaint) Onset: 06-07-2024 Unclassified (1 source) retinal vein occlusion (chief complaint) Onset: 04-30-2024 Unclassified (1 source) branch retinal vein occlusion (chief complaint) Onset: 10-21-2023 Unclassified (1 source) discomfort like a toothache (chief complaint) Onset: 08-21-2023 Unclassified (2 sources) 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) Stable Vision (chief complaint) Onset: 03-04-2022 Resolved: 06-24-2022 Unclassified (1 source) BRVO (chief complaint) Increased Vision (chief complaint) Onset: 01-07-2022 Unclassified (1 source) decreased vision (chief complaint) Onset: 11-21-2021 Unclassified (1 source) possible CME OS per (chief complaint) reports gradual vision improvement (chief complaint) Onset: 10-31-2021 Unclassified (2 sources) BRVO (chief complaint) decreased vision (chief complaint) Onset: 01-06-2019 Resolved: 10-15-2021 Unclassified (1 source) BRVO (chief complaint) no vision changes (chief complaint) Onset: 06-06-2021 Unclassified (1 source) 2 mo fu due to BRVO w/ mac edema (chief complaint) Stable vision (chief complaint) Onset: 09-06-2020 Unclassified (3 sources) BRVO (chief complaint) stable vision (chief complaint) Onset: 07-07-2019 Resolved: 01-05-2020 Unclassified (1 source) BRVO (chief complaint) increased (chief complaint) Onset: 04-14-2019 Unclassified (1 source) BRVO with edema (chief complaint) increase in vision (chief complaint) Onset: 02-17-2019 Unclassified (2 sources) vein occlusion (chief complaint) denies vision changes (chief complaint) Onset: 01-14-2018 Resolved: 10-07-2018 Unclassified (1 source) vein occlusion (chief complaint) decrease in vision (chief complaint) Onset: 08-05-2018 Unclassified (1 source) vein occlusion (chief complaint) burry vision (chief complaint) denies vision change (chief complaint) Onset: 04-15-2018 Unclassified (1 source) vein occlusion (chief complaint) stable vision (chief complaint) Onset: 02-18-2018 Unclassified (1 source) vein occlusion (chief complaint) blurry vision (chief complaint) denies vision changes (chief complaint) Onset: 12-10-2017 Unclassified (1 source) BRVO (chief complaint) denies vision change (chief complaint) new medication (chief complaint) Onset: 11-19-2017 Unclassified (1 source) BRVO (chief complaint) blurry vision (chief complaint) no visual changes (chief complaint) Onset: 10-14-2017 Unclassified (1 source) BRVO (chief complaint) reports stable vision (chief complaint) Onset: 09-10-2017 Unclassified (1 source) vein occlusion (chief complaint) slight decrease in vision (chief complaint) distorted vision (chief complaint) Onset: 07-30-2017 Unclassified (1 source) vision changes (chief complaint) blurry vision (chief complaint) reports no visual changes (chief complaint) Onset: 06-23-2017 Unclassified (1 source) vein occlusion (chief complaint) small black floater, with no vision changes (chief complaint) denies any vision changes (chief complaint) Onset: 05-13-2017 Unclassified (1 source) BRVO with macular edema (chief complaint) blurry vision (chief complaint) stable vision (chief complaint) Onset: 04-02-2017 Unclassified (1 source) BRVO with macular edema (chief complaint) reports no visual changes (chief complaint) Onset: 02-12-2017 Unclassified (1 source) BRVO with macular edema (chief complaint) red dots (chief complaint) Onset: 01-08-2017 Unclassified (1 source) referred by Dr. Zayas for a retinal occlusion (chief complaint) flashes (chief complaint) blurriness in vision (chief complaint) Onset: 12-11-2016 Viral infection (11 sources) Disease caused by 2019-nCoV; Translations: [COVID-19] Resolved: 02-18-2022 Results Test Name Value Interpretation Reference Range Facility Erythrocyte distribution wid th Auto (RBC) [Ratio]on 06-22-2024 Erythrocyte distribution width (RBC) [Ratio] 12.6 % 11.0-15.0 [facility] Erythrocyte distribution width (RBC) [Ratio] Erythrocyte distribution width [Ratio] by Automated count 11.0-15.0 [facility] Estimated glomerular filtrat ion rate (GFR) non- Americanon 06-22-2024 GFR/1.73 sq M.predicted among non-blacks MDRD (S/P/Bld) [Vol rate/Area] 40 mL/min/{1.73_m2} Low >=60 mL/min/1.73 m 2 [facility] GFR/1.73 sq M.predicted among non-blacks MDRD (S/P/Bld) [Vol rate/Area] Estimated glomerular filtration rate (GFR) non- Low >=60 mL/min/1.73 m 2 [facility] Hematocrit Auto (Bld) [Volum e fraction]on 06-22-2024 Hematocrit (Bld) [Volume fraction] 45.1 % 42.0-54.0 [facility] Hematocrit (Bld) [Volume fraction] Hematocrit [Volume Fraction] of Blood by Automated count 42.0-54.0 [facility] Hemoglobin [Mass/volume] in Bloodon 06-22-2024 Hemoglobin (Bld) [Mass/Vol] 14.6 g/dL 14.0-18.0 [facility] Hemoglobin (Bld) [Mass/Vol] Hemoglobin [Mass/volume] in Blood 14.0-18.0 [facility] Iron binding capacity [Mass/ volume] in Serum or Plasmaon 06-22-2024 Iron binding capacity [Mass/Vol] 317.0 ug/dL 250.0-450.0 [facility] Iron binding capacity [Mass/Vol] Iron binding capacity [Mass/volume] in Serum or Plasma 250.0-450.0 [facility] Iron saturation [Mass Fracti on] in Serum or Plasmaon 06-22-2024 Iron saturation [Mass fraction] 30.3 % [facility] Iron saturation [Mass fraction] Iron saturation [Mass Fraction] in Serum or Plasma [facility] Laboratory - Chemistry and C hemistry - challengeon 06-22-2024 Albumin [Mass/Vol] 3.9 g/dL 3.4-5.0 [facility] Calcium [Mass/Vol] 9.2 mg/dL 8.5-10.1 [facility] Chloride [Moles/Vol] 105 mmol/L 98-107 [facility] CO2 [Moles/Vol] 28.9 mmol/L 21.0-32.0 [facility] Creatinine [Mass/Vol] 1.67 mg/dL High 0.70-1.30 [facility] Ferritin [Mass/Vol] 53.0 ng/mL 26.0-388.0 [facility] GFR/1.73 sq M.predicted MDRD (S/P/Bld) [Vol rate/Area] 49 mL/min/{1.73_m2} Low >=60 mL/min/1.73 m 2 [facility] Glucose [Mass/Vol] 121 mg/dL High 74-106 [facility] Iron [Mass/Vol] 96.0 ug/dL 65.0-175.0 [facility] Magnesium [Mass/Vol] 2.2 mg/dL 1.8-2.4 [facility] Potassium [Moles/Vol] 5.0 mmol/L 3.5-5.1 [facility] Sodium [Moles/Vol] 141 mmol/L 136-145 [facility] Urate [Mass/Vol] 6.9 mg/dL 3.5-7.2 [facility] Urea nitrogen [Mass/Vol] 26.0 mg/dL High 7.0-18.0 [facility] Urea nitrogen/Creatinine [Mass ratio] 15.6 mg/mg [facility] Bilirubin Ql (U) Negative NEGATIVE [facility] Glucose (U) [Mass/Vol] Negative NEGATIVE [facility] Ketones Ql (U) Negative NEGATIVE [facility] pH (U) 6.0 [pH] 5.0-9.0 [facility] Specific gravity (U) [Rel density] 1.015 1.005-1.025 [facility] Urobilinogen Qn (U) 0.2 {Aimee'U}/dL 0.2-1.0 [facility] Laboratory - Specimen inform ationon 06-22-2024 Appearance (U) CLEAR CLEAR [facility] Color (U) LT. YELLOW YELLOW [facility] Laboratory - Urinalysison Leukocyte esterase Test strip Ql (U) Negative NEGATIVE [facility] Mucus Ql (Urine sed) NONE SEEN NONE SEEN [facility] Nitrite Ql (U) Negative NEGATIVE [facility] Protein (U) [Mass/Vol] 21.1 mg/dL High <=11.9 [facility] Protein Ql (U) Negative NEG/TRACE [facility] Leukocytes [#/volume] correc denis for nucleated erythrocytes in Blood by Automated counon 06-22-2024 WBC corrected for nucl RBC Auto (Bld) [#/Vol] 5.1 10 3/uL 4.0-11.0 [facility] WBC corrected for nucl RBC Auto (Bld) [#/Vol] Leukocytes [#/volume] corrected for nucleated erythrocytes in Blood by Automated coun 4.0-11.0 [facility] MCH Auto (RBC) [Entitic mass ]on 06-22-2024 MCH (RBC) [Entitic mass] 31.2 pg 25.9-34.0 [facility] MCH (RBC) [Entitic mass] MCH [Entitic mass] by Automated count 25.9-34.0 [facility] MCHC Auto (RBC) [Mass/Vol]on 06-22-2024 MCHC (RBC) [Mass/Vol] 32.4 g/dL 29.9-35.2 [facility] MCHC (RBC) [Mass/Vol] MCHC [Mass/volume] by Automated count 29.9-35.2 [facility] MCV Auto (RBC) [Entitic vol] on 06-22-2024 MCV (RBC) [Entitic vol] 96.4 fL High 80.0-94.0 [facility] MCV (RBC) [Entitic vol] MCV [Entitic vol ume] by Automated count High 80.0-94.0 [facility] No Panel Informationon 06-22 Parathyroid Hormone (Intact) 41 pg/mL [facility] Comment on above: Performed at: - [facility] [employer] [address] [id number] Director: Vinny Alexander PhD, Phone: [phone] Phosphorus Level 2.5 mg/dL Low 2.6-4.7 [facility] Urine Bacteria TRACE #/HPF Abnormal NONE SEEN [facility] Urine Occult Blood Negative NEGATIVE [facility] Urine Other Casts NONE SEEN #/LPF NONE SEEN [facility] Urine Other Crystals None Seen #/HPF None Seen [facility] Urine Random Creatinine 104.02 mg/dL 20.0 0-300.0 0 [facility] Urine RBC NONE SEEN #/HPF 0-2 [facility] Urine Squamous Epithelial Cells RARE #/LPF NONE/RARE [facility] Urine WBC NONE SEEN #/HPF NONE SEEN [facility] Platelet mean volume Auto (B ld) [Entitic vol]on 06-22-2024 Platelet mean volume (Bld) [Entitic vol] 9.8 fL 9.5-13.5 [facility] Platelet mean volume (Bld) [Entitic vol] Platelet mean volume [Entitic volume] in Blood by Automated count 9.-13.5 [facility] Platelets Auto (Bld) [#/Vol] on 06-22-2024 Platelets (Bld) [#/Vol] 234 10 3/uL 150-450 [facility] Platelets (Bld) [#/Vol] Platelets [#/vol ume] in Blood by Automated count 150-450 [facility] RBC Auto (Bld) [#/Vol]on RBC (Bld) [#/Vol] 4.68 10 6/uL Low 4.70-6.10 [facility] RBC (Bld) [#/Vol] Erythrocytes [#/volume] in Blood by Automated count Low 4.70-6.10 [facility] Serum or plasma anion gap de terminationon 06-22-2024 Anion gap [Moles/Vol] 12.1 mmol/L [facility] Anion gap [Moles/Vol] Serum or plasma an ion gap determination [facility] Urine protein/creatinine rat ioon 06-22-2024 Protein/Creatinine (U) [Ratio] 0.20 [facility] Protein/Creatinine (U) [Ratio] Urine protein/creatinine ratio [facility] Erythrocyte distribution wid th Auto (RBC) [Ratio]on 03-19-2024 Erythrocyte distribution width (RBC) [Ratio] 12.8 % 11.0-15.0 [facility] Estimated glomerular filtrat ion rate (GFR) non- Americanon 03-19-2024 GFR/1.73 sq M.predicted among non-blacks MDRD (S/P/Bld) [Vol rate/Area] 36 mL/min/{1.73_m2} Low >=60 [facility] Hematocrit Auto (Bld) [Volum e fraction]on 03-19-2024 Hematocrit (Bld) [Volume fraction] 42.1 % 42.0-54.0 [facility] Hemoglobin [Mass/volume] in Bloodon 03-19-2024 Hemoglobin (Bld) [Mass/Vol] 13.7 g/dL Low 14.0-18.0 [facility] Laboratory - Chemistry and C hemistry - challengeon 03-19-2024 Albumin [Mass/Vol] 3.8 g/dL 3.4-5.0 [facility] Calcium [Mass/Vol] 8.8 mg/dL 8.5-10.1 [facility] Chloride [Moles/Vol] 105 mmol/L 98-107 [facility] CO2 [Moles/Vol] 25.8 mmol/L 21.0-32.0 [facility] Creatinine [Mass/Vol] 1.83 mg/dL High 0.70-1.30 [facility] GFR/1.73 sq M.predicted MDRD (S/P/Bld) [Vol rate/Area] 44 mL/min/{1.73_m2} Low >=60 [facility] Glucose [Mass/Vol] 108 mg/dL High 74-106 [facility] Magnesium [Mass/Vol] 1.9 mg/dL 1.8-2.4 [facility] Potassium [Moles/Vol] 4.8 mmol/L 3.5-5.1 [facility] Sodium [Moles/Vol] 140 mmol/L 136-145 [facility] Urate [Mass/Vol] 7.9 mg/dL High 3.5-7.2 [facility] Urea nitrogen [Mass/Vol] 30.0 mg/dL High 7.0-18.0 [facility] Urea nitrogen/Creatinine [Mass ratio] 16.4 mg/mg [facility] Bilirubin Ql (U) Negative NEGATIVE [facility] Glucose (U) [Mass/Vol] Negative NEGATIVE [facility] Ketones Ql (U) Negative NEGATIVE [facility] pH (U) 6.0 [pH] 5.0-9.0 [facility] Specific gravity (U) [Rel density] 1.015 1.005-1.025 [facility] Urobilinogen Qn (U) 0.2 {Aimee'U}/dL 0.2-1.0 [facility] - Specimen inform ationon 03-19-2024 Appearance (U) CLEAR CLEAR [facility] Color (U) YELLOW YELLOW [facility] - Urinalysison Leukocyte esterase Test strip Ql (U) Negative NEGATIVE [facility] Mucus Ql (Urine sed) NONE SEEN NONE SEEN [facility] Nitrite Ql (U) Negative NEGATIVE [facility] Protein (U) [Mass/Vol] 20.0 mg/dL High <=11.9 [facility] Protein Ql (U) Negative NEG/TRACE [facility] Leukocytes [#/volume] correc denis for nucleated erythrocytes in Blood by Automated counon 03-19-2024 WBC corrected for nucl RBC Auto (Bld) [#/Vol] 5.0 10 3/uL 4.0-11.0 [facility] MCH Auto (RBC) [Entitic mass ]on 03-19-2024 MCH (RBC) [Entitic mass] 30.9 pg 25.9-34.0 [facility] MCHC Auto (RBC) [Mass/Vol]on 03-19-2024 MCHC (RBC) [Mass/Vol] 32.5 g/dL 29.9-35.2 [facility] MCV Auto (RBC) [Entitic vol] on 03-19-2024 MCV (RBC) [Entitic vol] 95.0 fL High 80.0-94.0 [facility] No Panel Informationon 03-19 25-Hydroxy Vitamin D Total 52.4 ng/mL [facility] Comment on above: <20 ng/mL Vit D defi cient20-<30 ng/mL Vit D [id number] ng/mL Vit D sufficient>100 ng/mL Potential Toxicity Parathyroid Hormone (Intact) 41 pg/mL 15-65 [facility] Comment on above: Performed at: - [facility] [employer] [address] [id number] Director: Vinny Alexander PhD, Phone: [phone] Phosphorus Level 3.0 mg/dL 2.6-4.7 [facility] Urine Bacteria NONE SEEN #/HPF NONE SEEN [facility] Urine Occult Blood Negative NEGATIVE [facility] Urine Other Casts NONE SEEN #/LPF NONE SEEN [facility] Urine Other Crystals None Seen #/HPF None Seen [facility] Urine Random Creatinine 118.03 mg/dL 20.0 0-300.0 0 [facility] Urine RBC 0-2 #/HPF 0-2 [facility] Urine Squamous Epithelial Cells NONE SEEN #/LPF NONE/RARE [facility] Urine WBC 0-2 #/HPF Abnormal NONE SEEN [facility] Platelet mean volume Auto (B ld) [Entitic vol]on 03-19-2024 Platelet mean volume (Bld) [Entitic vol] 10.6 fL 9.5-13.5 [facility] Platelets Auto (Bld) [#/Vol] on 03-19-2024 Platelets (Bld) [#/Vol] 221 10 3/uL 150-450 [facility] RBC Auto (Bld) [#/Vol]on RBC (Bld) [#/Vol] 4.43 10 6/uL Low 4.70-6.10 [facility] Serum or plasma anion gap de terminationon 03-19-2024 Anion gap [Moles/Vol] 14.0 mmol/L [facility] Urine protein/creatinine rat ioon 03-19-2024 Protein/Creatinine (U) [Ratio] 0.17 [facility] Lab Reportson 12-30-2023 Lab Reports [id number]# 1.00TIFF Normal [facility] RAD - MISCon 12-24-2023 RAD - MISC [id number]#1 .00TIFF Normal [facility] Patient Educationon 12-22-19 Patient Education Urology [...] Follow these instructions at home: ? Take [id number] and prescription medicines only as told by [...] the medicine (more content not included)... Normal [facility] Urology Office/Clinic Noteon 12-22-2023 Urology Office/Clinic [...] Follow-up With When Contact Information ANDREEA DIXON, Graham Ruby, URL [facility] [address] , [place] [address]- [phone] Additional Instructions: 1 yr w/ PSA Patient [...] Negative (12/22/23 (more content not included)... Normal [facility] Comment on above: Result Comment: Elec tronically Signed By: Graham VELAZQUEZ MD\.br\Date and Time Signed: 12/22/23 15:22 EDT\.br\Electronically Co-Signed By: Anita Magana.br\Date and Time Co-Signed: 12/22/23 15:20 EDT Albumin [Mass/volume] in Ser um or Plasmaon 12-16-2023 Albumin [Mass/Vol] 4.2 g/dL 2.9-4.4 [facility] Automated urine specific gra vity by refractometryon 12-16-2023 Specific gravity Refractometry automated (U) [Rel density] <=1.005 Abnormal 1.005-1.025 [facility] Basophils Auto (Bld) [#/Vol] on 12-16-2023 Basophils (Bld) [#/Vol] 0.0 10 3/uL 0.0-0.1 [facility] Basophils/100 WBC Auto (Bld) on 12-16-2023 Basophils/100 WBC (Bld) 0.5 % 0.2-2.0 [facility] Bilirubin Auto test strip (U ) [Mass/Vol]on 12-16-2023 Bilirubin (U) [Mass/Vol] Negative NEGATIVE [facility] Color Auto (U)on 12-16-2023 Color (U) LT. YELLOW YELLOW [facility] Eosinophils/100 WBC Auto (Bl d)on 12-16-2023 Eosinophils/100 WBC (Bld) 2.5 % 0.9-7.0 [facility] Erythrocyte distribution wid th Auto (RBC) [Ratio]on 12-16-2023 Erythrocyte distribution width (RBC) [Ratio] 12.6 % 11.0-15.0 [facility] Hematocrit Auto (Bld) [Volum e fraction]on 12-16-2023 Hematocrit (Bld) [Volume fraction] 42.8 % 42.0-54.0 [facility] Hemoglobin [Mass/volume] in Bloodon 12-16-2023 Hemoglobin (Bld) [Mass/Vol] 14.0 g/dL 14.0-18.0 [facility] IgA [Mass/volume] in Serum o r Plasmaon 12-16-2023 IgA [Mass/Vol] 143 mg/dL 61-437 [facility] IgG [Mass/volume] in Serum o r Plasmaon 12-16-2023 IgG [Mass/Vol] 1110 mg/dL 603-1613 [facility] IgM [Mass/volume] in Serum o r Plasmaon 12-16-2023 IgM [Mass/Vol] 62 mg/dL 15-143 [facility] Immunoglobulin light chains. kappa.free [Mass/volume] in Serumon 12-16-2023 Immunoglobulin light chains.kappa.free (S) [Mass/Vol] 39.7 mg/L Abnormal 3.3-19.4 [facility] Immunoglobulin light chains. kappa.free/Immunoglobulin light chains.lambda.free [Kassy 12-16-2023 Immunoglobulin light chains.kappa.free/Immun oglobulin light chains.lambda.free (S) [Mass ratio] 1.68 Abnormal 0.26-1.65 [facility] Comment on above: Performed at: [address] [id number] Director: Vinny Alexander PhD, Phone: [phone] Immunoglobulin light chains. lambda.free [Mass/volume] in Serum or Plasmaon 12-16-2023 Immunoglobulin light chains.lambda.free [Mass/Vol] 23.7 mg/L 5.7-26.3 [facility] Ketones Auto test strip (U) [Mass/Vol]on 12-16-2023 Ketones (U) [Mass/Vol] Negative NEGATIVE [facility] Laboratory - Hematology and Cell countson 12-16-2023 Immature granulocytes/100 WBC (Bld) 0.7 % High 0.0-0.5 [facility] Leukocytes [#/volume] correc denis for nucleated erythrocytes in Blood by Automated counon 12-16-2023 WBC corrected for nucl RBC Auto (Bld) [#/Vol] 6.1 10 3/uL 4.0-11.0 [facility] Lymphocytes Auto (Bld) [#/Vo l]on 12-16-2023 Lymphocytes (Bld) [#/Vol] 1.4 10 3/uL 1.2-3.8 [facility] Lymphocytes/100 WBC Auto (Bl d)on 12-16-2023 Lymphocytes/100 WBC (Bld) 23.1 % 20.5-60.0 [facility] MCH Auto (RBC) [Entitic mass ]on 12-16-2023 MCH (RBC) [Entitic mass] 31.0 pg 25.9-34.0 [facility] MCHC Auto (RBC) [Mass/Vol]on 12-16-2023 MCHC (RBC) [Mass/Vol] 32.7 g/dL 29.9-35.2 [facility] MCV Auto (RBC) [Entitic vol] on 12-16-2023 MCV (RBC) [Entitic vol] 94.9 fL High 80.0-94.0 [facility] Monocytes Auto (Bld) [#/Vol] on 12-16-2023 Monocytes (Bld) [#/Vol] 0.8 10 3/uL 0.3-0.8 [facility] Monocytes/100 WBC Auto (Bld) on 12-16-2023 Monocytes/100 WBC (Bld) 13.3 % High 1.7-12.0 [facility] Neutrophils Auto (Bld) [#/Vo l]on 12-16-2023 Neutrophils (Bld) [#/Vol] 3.6 10 3/uL 1.4-6.5 [facility] Neutrophils/100 WBC Auto (Bl d)on 12-16-2023 Neutrophils/100 WBC (Bld) 59.9 % 43.0-75.0 [facility] No Panel Informationon 12-15 Eosinophils # (Auto) 0.2 10 3/uL 0.0-0.7 [facility] Immature Granulocyte # (Auto) 0.04 10 3/uL High 0.00-0.03 [facility] Protein Electrophoresis M-Valerio Not Observed g/dL Not Observed [facility] Protein Electrophoresis Note Comment . [facility] Comment on above: Protein electrophore sis scan will follow via computer,mail, or television news anchor delivery. Platelet mean volume Auto (B ld) [Entitic vol]on 12-16-2023 Platelet mean volume (Bld) [Entitic vol] 9.9 fL 9.5-13.5 [facility] Platelets Auto (Bld) [#/Vol] on 12-16-2023 Platelets (Bld) [#/Vol] 230 10 3/uL 150-450 [facility] Protein Auto test strip (U) [Mass/Vol]on 12-16-2023 Protein (U) [Mass/Vol] Negative NEG/[facility] Protein [Mass/volume] in Ser um or Plasmaon 12-16-2023 Protein [Mass/Vol] 7.1 g/dL 6.0-8.5 [facility] RBC Auto (Bld) [#/Vol]on RBC (Bld) [#/Vol] 4.51 10 6/uL Low 4.70-6.10 [facility] Serum globulin measurement ( mass/volume)on 12-16-2023 Globulin (S) [Mass/Vol] 2.9 g/dL 2.2-3.9 [facility] Serum or plasma albumin/glob ulin mass ratioon 12-16-2023 Albumin/Globulin [Mass ratio] 1.5 {ratio} 0.7-1.7 [facility] Serum or plasma alpha 1 glob ulin measurement by electrophoresis (mass/volume)on 12-16-2023 Alpha 1 globulin Elph [Mass/Vol] 0.2 g/dL 0.0-0.4 [facility] Serum or plasma alpha 2 glob ulin measurement by electrophoresis (mass/volume)on 12-16-2023 Alpha 2 globulin Elph [Mass/Vol] 0.7 g/dL 0.4-1.0 [facility] Serum or plasma beta globuli n measurement by electrophoresis (mass/volume)on 12-16-2023 Beta globulin Elph [Mass/Vol] 0.8 g/dL 0.7-1.3 [facility] Serum or plasma gamma globul in measurement by electrophoresis (mass/volume)on 12-16-2023 Gamma globulin Elph [Mass/Vol] 1.1 g/dL 0.4-1.8 [facility] Serum or plasma immunoelectr ophoresis interpretationon 12-16-2023 Interpretation IEP [Interp] Comment . [facility] Comment on above: No monoclonality det ected. Specific gravity Auto test s trip (U) [Rel density]on 12-16-2023 Specific gravity (U) [Rel density] CLEAR CLEAR [facility] Urine glucose measurement by test strip (mass/volume)on 12-16-2023 Glucose Test strip (U) [Mass/Vol] Negative NEGATIVE [facility] Urine hemoglobin detection b y automated test stripon 12-16-2023 Hemoglobin Auto test strip Ql (U) Negative NEGATIVE [facility] Urine nitrite detection by a utomated test stripon 12-16-2023 Nitrite Auto test strip Ql (U) Negative NEGATIVE [facility] Urobilinogen Auto test strip (U) [Mass/Vol]on 12-16-2023 Urobilinogen Qn (U) 0.2 {Aimee'U}/dL 0.2-1.0 [facility] pH Auto test strip (U)on pH (U) 6.0 [pH] 5.0-9.0 [facility] Automated urine specific gra vity by refractometryon 12-10-2023 Specific gravity Refractometry automated (U) [Rel density] 1.015 1.005-1.025 [facility] Bilirubin Auto test strip (U ) [Mass/Vol]on 12-10-2023 Bilirubin (U) [Mass/Vol] Negative NEGATIVE [facility] Color Auto (U)on 12-10-2023 Color (U) LT. YELLOW YELLOW [facility] Estimated glomerular filtrat ion rate (GFR) non- Americanon 12-10-2023 GFR/1.73 sq M.predicted among non-blacks MDRD (S/P/Bld) [Vol rate/Area] 32 mL/min/{1.73_m2} Low >=60 [facility] Ketones Auto test strip (U) [Mass/Vol]on 12-10-2023 Ketones (U) [Mass/Vol] Negative NEGATIVE [facility] Lab Reportson 12-10-2023 Lab Reports [id number] .00TIFF Normal [facility] - Chemistry and C hemistry - challengeon 12-10-2023 Calcium [Mass/Vol] 9.1 mg/dL 8.5-10.1 [facility] Chloride [Moles/Vol] 102 mmol/L 98-107 [facility] CO2 [Moles/Vol] 29.9 mmol/L 21.0-32.0 [facility] Creatinine [Mass/Vol] 2.02 mg/dL High 0.70-1.30 [facility] GFR/1.73 sq M.predicted MDRD (S/P/Bld) [Vol rate/Area] 39 mL/min/{1.73_m2} Low >=60 [facility] Glucose [Mass/Vol] 92 mg/dL 74-106 [facility] Potassium [Moles/Vol] 5.1 mmol/L 3.5-5.1 [facility] Sodium [Moles/Vol] 139 mmol/L 136-145 [facility] Urea nitrogen [Mass/Vol] 29.0 mg/dL High 7.0-18.0 [facility] Urea nitrogen/Creatinine [Mass ratio] 14.4 mg/mg [facility] Protein Auto test strip (U) [Mass/Vol]on 12-10-2023 Protein (U) [Mass/Vol] Negative NEG/TRACE [facility] Serum or plasma anion gap de terminationon 12-10-2023 Anion gap [Moles/Vol] 12.2 mmol/L Fi [facility] Specific gravity Auto test s trip (U) [Rel density]on 12-10-2023 Specific gravity (U) [Rel density] CLEAR CLEAR [facility] Urine glucose measurement by test strip (mass/volume)on 12-10-2023 Glucose Test strip (U) [Mass/Vol] Negative NEGATIVE [facility] Urine hemoglobin detection b y automated test stripon 12-10-2023 Hemoglobin Auto test strip Ql (U) Negative NEGATIVE [facility] Urine nitrite detection by a utomated test stripon 12-10-2023 Nitrite Auto test strip Ql (U) Negative NEGATIVE [facility] Urobilinogen Auto test strip (U) [Mass/Vol]on 12-10-2023 Urobilinogen Qn (U) 0.2 {Aimee'U}/dL 0.2-1.0 [facility] pH Auto test strip (U)on pH (U) 8.0 [pH] 5.0-9.0 [facility] No Panel Informationon 12-08 Prostate Specific Antigen Total 1.96 ng/mL <=4.00 [facility] Potassiumon 04-10-2023 Potassium [Moles/Vol] 4.3 mmol/L Normal 3.5-5.1 [facility] Comment on above: Result Comment: PERF ORMED BY: [place] [address] PATHOLOGIST EDGE TRIMMING MACHINE OPERATOR ANGELICA SUN M.D. Performed By: #### K #### [facility] [address] Basic Metabolic Panelon 07-2 Anion gap [Moles/Vol] 9.5 mmol/L Normal 6.0-15.0 [facility] Comment on above: Performed By: #### C BC, BMP #### [facility] [address] Calcium [Mass/Vol] 9.2 mg/dL Normal 8.6-10.3 [facility] Comment on above: Result Comment: PERF ORMED BY: [place] [address] PATHOLOGIST EDGE TRIMMING MACHINE OPERATOR ANGELICA SUN M.D. Performed By: #### C BC, BMP #### [facility] [address] [place] [address] [place] Chloride [Moles/Vol] 107 mmol/L Normal 98-107 [facility] Comment on above: Performed By: #### C BC, BMP #### [facility] [address] CO2 [Moles/Vol] 28.4 mmol/L Normal 21.0-31.0 [facility] Comment on above: Performed By: #### C BC, BMP #### [facility] [address] [place] [address] [place] Creatinine [Mass/Vol] 1.47 mg/dL High 0.70-1.30 [facility] Comment on above: Performed By: #### C BC, BMP #### [facility] [address] [place] [address] [place] GFR/1.73 sq M.predicted MDRD (S/P/Bld) [Vol rate/Area] 49.742 mL/min/{1.73_m2} Normal [facility] Comment on above: Performed By: #### C BC, BMP #### [facility] [address] Glucose [Mass/Vol] 90 mg/dL Normal 70-100 [facility] Comment on above: Result Comment: Hodge Glucose Reference Range is dependent on time and content of last meal. Glucose of more than 200 mg/dL in a nonstressed, ambulatory subject supports the diagnosis of Diabetes Mellitus. ADA recommended reference range Performed By: #### C BC, BMP #### [facility] [address] Potassium [Moles/Vol] 5.9 mmol/L High 3.5-5.1 [facility] Comment on above: Performed By: #### C GARRETT, BMP #### [facility] [address] Sodium [Moles/Vol] 139 mmol/L Normal 136-145 [facility] Comment on above: Performed By: #### C GARRETT, BMP #### [facility] [address] Urea nitrogen [Mass/Vol] 27 mg/dL High 7-25 [facility] Comment on above: Performed By: #### C GARRETT, BMP #### [facility] [address] Basophils Auto (Bld) [#/Vol] Ordered By: Ryan Cornell on 03-27-2023 Basophils (Bld) [#/Vol] 0.0 10*3/uL 0.0-0.2 [facility] Basophils/100 WBC Auto (Bld) Ordered By: Ryan Cornell on 03-27-2023 Basophils/100 WBC (Bld) 0.6 % . [facility] Calcium [Mass/volume] in Ser um or PlasmaOrdered By: Ryan Cornell on 03-27-2023 Calcium [Mass/Vol] 9.2 mg/dL 8.6-10.3 [facility] Carbon dioxide, total [Moles /volume] in Serum or PlasmaOrdered By: Ryan Cornell on 03-27-2023 CO2 [Moles/Vol] 28.4 mmol/L 21.0-31.0 [facility] Chloride [Moles/volume] in S arturo or PlasmaOrdered By: Ryan Cornell on 03-27-2023 Chloride [Moles/Vol] 107 mmol/L 98-107 [facility] Complete Blood Count Auto Di ffon 03-27-2023 Basophils (Bld) [#/Vol] 0.0 10*3/uL Normal 0.0-0.2 [facility] Comment on above: Result Comment: PERF ORMED BY: [place] [address] PATHOLOGIST EDGE TRIMMING MACHINE OPERATOR ANGELICA SUN M.D. Performed By: #### C BC, BMP #### [address] Basophils/100 WBC (Bld) 0.6 % Normal . [facility] Comment on above: Performed By: #### C BC, BMP #### [address] Eosinophils (Bld) [#/Vol] 0.2 10*3/uL Normal 0.0-0.45 [facility] Comment on above: Performed By: #### C BC, BMP #### [address] Eosinophils/100 WBC (Bld) 3.2 % Normal . [facility] Comment on above: Performed By: #### C BC, BMP #### [address] Erythrocyte distribution width (RBC) [Ratio] 13.3 % Normal 12.0-14.8 [facility] Comment on above: Performed By: #### C BC, BMP #### [address] Hematocrit (Bld) [Volume fraction] 36.5 % Low 38.8-50.0 [facility] Comment on above: Performed By: #### C BC, BMP #### [place] [address] [place] Hemoglobin (Bld) [Mass/Vol] 12.3 g/dL Low 13.0-17.0 [facility] Comment on above: Performed By: #### C BC, BMP #### [address] Lymphocytes (Bld) [#/Vol] 1.6 10*3/uL Normal 1.00-4.8 [facility] Comment on above: Performed By: #### C BC, BMP #### [facility] [address] Lymphocytes/100 WBC (Bld) 24.3 % Normal . [facility] Comment on above: Performed By: #### C GARRETT, BMP #### [address] MCH (RBC) [Entitic mass] 31.8 pg Normal 27.5-35.2 [facility] Comment on above: Performed By: #### C GARRETT, BMP #### [address] MCV (RBC) [Entitic vol] 94.2 fL Normal 83.5-101 [facility] Comment on above: Performed By: #### C GARRETT, BMP #### [address] Mean Corpuscular HGB Conc 33.7 g/dL Normal 32.5-35.6 [facility] Comment on above: Performed By: #### C BC, BMP #### [address] Monocytes (Bld) [#/Vol] 0.7 10*3/uL Normal 0.0-0.8 [facility] Comment on above: Performed By: #### C BC, BMP #### [address] Monocytes/100 WBC (Bld) 11.1 % Normal . [facility] Comment on above: Performed By: #### C BC, BMP #### [address] Neutrophils (Bld) [#/Vol] 3.9 10*3/uL Normal 1.8-7.7 [facility] Comment on above: Performed By: #### C GARRETT, BMP #### [facility] [address] [place] [address] [place] Neutrophils/100 WBC (Bld) 60.8 % Normal . [facility] Comment on above: Performed By: #### C GARRETT, BMP #### [facility] [address] NRBC% 0.1 /100{WBC} Normal 0-0.5 [facility] Comment on above: Performed By: #### C GARRETT, BMP #### [facility] [address] Platelet mean volume (Bld) [Entitic vol] 7.9 fL Normal 6.6-10.1 [facility] Comment on above: Performed By: #### C GARRETT, BMP #### [address] Platelets (Bld) [#/Vol] 235 10*3/uL Normal 150-450 [facility] Comment on above: Performed By: #### C GARRETT, BMP #### [address] RBC (Bld) [#/Vol] 3.87 10*6/uL Low 3.90-5.60 [facility] Comment on above: Performed By: #### C GARRETT, BMP #### [address] WBC (Bld) [#/Vol] 6.5 10*3/uL Normal 4.1-10.5 [facility] Comment on above: Performed By: #### C GARRETT, BMP #### [place] [address] [place] Creatinine [Mass/volume] in Serum or PlasmaOrdered By: Ryan Cornell on 03-27-2023 Creatinine [Mass/Vol] 1.47 mg/dL 0.70-1.30 [facility] ECG 12 lead ECGon 03-27-2023 ECG 12 lead ECG [facility] [place] [address] [place] [address] Electrocardiograph Report Signed Patient: Marcelino Escobar MR#: [id number] 48 : 1950 Acct:[id number] Age/Sex: 72 / M ADM Date: 03/27/23 Loc: Room: Type: [facility] Attending Dr: Ryan Cornell MD Ordering Provider: [...] Signed By Duglas Hernandez MD 0807 Normal [facility] Eosinophils Auto (Bld) [#/Vo l]Ordered By: Ryan Cornell on 03-27-2023 Eosinophils (Bld) [#/Vol] 0.2 10*3/uL 0.0-0.45 [facility] Eosinophils/100 WBC Auto (Bl d)Ordered By: Ryan Cornell on 03-27-2023 Eosinophils/100 WBC (Bld) 3.2 % . [facility] Erythrocyte distribution wid th Auto (RBC) [Ratio]Ordered By: Ryan Cornell on 03-27-2023 Erythrocyte distribution width (RBC) [Ratio] 13.3 % 12.0-14.8 [facility] Glucose [Mass/volume] in Ser um or PlasmaOrdered By: Ryan Cornell on 03-27-2023 Glucose [Mass/Vol] 90 mg/dL 70-100 [facility] Comment on above: ADA recommended refe rence rangeRandom Glucose Reference Range is dependent on time and content of last meal. Glucose of more than 200 mg/dL in a nonstressed, ambulatory subject supports the diagnosis of Diabetes Mellitus. Hematocrit Auto (Bld) [Volum e fraction]Ordered By: Ryan Cornell on 03-27-2023 Hematocrit (Bld) [Volume fraction] 36.5 % 38.8-50.0 [facility] Hemoglobin [Mass/volume] in BloodOrdered By: Ryan Cornell on 03-27-2023 Hemoglobin (Bld) [Mass/Vol] 12.3 g/dL 13.0-17.0 [facility] Leukocytes [#/volume] correc denis for nucleated erythrocytes in Blood by Automated counOrdered By: Ryan Cornell on 03-27-2023 WBC corrected for nucl RBC Auto (Bld) [#/Vol] 6.5 10*3/uL 4.1-10.5 [facility] Lymphocytes Auto (Bld) [#/Vo l]Ordered By: Ryan Cornell on 03-27-2023 Lymphocytes (Bld) [#/Vol] 1.6 10*3/uL 1.00-4.8 [facility] Lymphocytes/100 WBC Auto (Bl d)Ordered By: Ryan Cornell on 03-27-2023 Lymphocytes/100 WBC (Bld) 24.3 % . [facility] MCH Auto (RBC) [Entitic mass ]Ordered By: Ryan Cornell on 03-27-2023 MCH (RBC) [Entitic mass] 31.8 pg 27.5-35.2 [facility] MCHC Auto (RBC) [Mass/Vol]Or dered By: Ryan Cornell on 03-27-2023 MCHC (RBC) [Mass/Vol] 33.7 g/dL 32.5-35.6 [facility] MCV Auto (RBC) [Entitic vol] Ordered By: Ryan Cornell on 03-27-2023 MCV (RBC) [Entitic vol] 94.2 fL 83.5-101 [facility] Monocytes Auto (Bld) [#/Vol] Ordered By: Ryan Cornell on 03-27-2023 Monocytes (Bld) [#/Vol] 0.7 10*3/uL 0.0-0.8 [facility] Monocytes/100 WBC Auto (Bld) Ordered By: Ryan Cornell on 03-27-2023 Monocytes/100 WBC (Bld) 11.1 % . [facility] Neutrophils Auto (Bld) [#/Vo l]Ordered By: Ryan Cornell on 03-27-2023 Neutrophils (Bld) [#/Vol] 3.9 10*3/uL 1.8-7.7 [facility] Neutrophils/100 WBC Auto (Bl d)Ordered By: Ryan Cornell on 03-27-2023 Neutrophils/100 WBC (Bld) 60.8 % . [facility] No Panel InformationOrdered By: Ryan Cornell on 03-27-2023 Estimated GFR (CKD-EPI) 49.742 mL/Min [facility] Creatinine Clearance (Chem N/A [facility] Nucleated erythrocytes [Pres ence] in Blood by Automated countOrdered By: Ryan Cornell on 03-27-2023 Nucleated RBC Auto Ql (Bld) 0.1 /100{WBC} 0-0.5 [facility] Platelet mean volume Auto (B ld) [Entitic vol]Ordered By: Ryan Cornell on 03-27-2023 Platelet mean volume (Bld) [Entitic vol] 7.9 fL 6.6-10.1 [facility] Platelets Auto (Bld) [#/Vol] Ordered By: Ryan Cornell on 03-27-2023 Platelets (Bld) [#/Vol] 235 10*3/uL 150-450 [facility] Potassium [Moles/volume] in Serum or PlasmaOrdered By: Ryan Cornell on 03-27-2023 Potassium [Moles/Vol] 5.9 mmol/L 3.5-5.1 [facility] RBC Auto (Bld) [#/Vol]Ordere d By: Ryan Cornell on 03-27-2023 RBC (Bld) [#/Vol] 3.87 10*6/uL 3.90-5.60 [facility] Serum or plasma anion gap de terminationOrdered By: Ryan Cornell on 03-27-2023 Anion gap [Moles/Vol] 9.5 mmol/L 6.0-15.0 [facility] Sodium [Moles/volume] in Ser um or PlasmaOrdered By: Ryan Cornell on 03-27-2023 Sodium [Moles/Vol] 139 mmol/L 136-145 [facility] Urea nitrogen [Mass/volume] in Serum or PlasmaOrdered By: Ryan Cornell on 03-27-2023 Urea nitrogen [Mass/Vol] 27 mg/dL 7-25 [facility] WBC Auto (Bld) [#/Vol]Ordere d By: Ryan Cornell on 03-27-2023 WBC (Bld) [#/Vol] 6.5 10*3/uL 4.1-10.5 [facility] CBC AUTO DIFFon 02-04-2023 BASO # 0.0 103/ul Normal 0.0-0.1 [facility] Comment on above: Performed By: #### C BC #### [facility] [address] [place] [address] Dr. Haley Mays Basophils/100 WBC (Bld) 0.4 % Normal 0.2-2.0 [facility] Comment on above: Performed By: #### C BC #### [facility] [address] [place] [address] Dr. Haley Mays EO # 0.0 103/ul Normal 0.0-0.7 [facility] Comment on above: Performed By: #### C BC #### [facility] [address] [place] [address] Dr. Haley Mays Eosinophils/100 WBC (Bld) 0.5 % Critically low 0.9-7.0 [facility] Comment on above: Performed By: #### C BC #### [facility] [address] [place] [address] Dr. Haley Mays Erythrocyte distribution width (RBC) [Ratio] 12.3 % Normal 11.0-15.0 [facility] Comment on above: Performed By: #### C BC #### [facility] [address] [place] [address] Dr. Haley Mays Hematocrit (Bld) [Volume fraction] 33.2 % Critically low 42.0-54.0 [facility] Comment on above: Performed By: #### C BC #### [facility] [address] [place] [address] Dr. Haley Mays Hemoglobin (Bld) [Mass/Vol] 11.6 g/dL Critically low 14.0-18.0 [facility] Comment on above: Performed By: #### C BC #### [facility] [address] [place] [address] Dr. Haley Mays IG # 0.05 10e3/ul Critically high 0.00-0.03 [facility] Comment on above: Performed By: #### C BC #### [facility] [address] [place] [address] Dr. Haley Mays IG % 0.9 % Critically high 0.0-0.5 [facility] Comment on above: Performed By: #### C BC #### [facility] [address] [place] [address] Dr. Haley Mays LYMPH # 1.3 103/ul Normal 1.2-3.8 [facility] Comment on above: Performed By: #### C BC #### [facility] [address] [place] [address] Dr. Haley Mays Lymphocytes/100 WBC (Bld) 21.9 % Normal 20.5-60.0 [facility] Comment on above: Performed By: #### C BC #### [facility] [address] [place] [address] Dr. Haley Mays MANUAL DIFF REQ NO Normal [facility] Comment on above: Performed By: #### C BC #### [facility] [address] [place] [address] Dr. Haley Mays MCH (RBC) [Entitic mass] 32.0 pg Normal 25.9-34.0 [facility] Comment on above: Performed By: #### C BC #### [facility] [address] [place] [address] Dr. Haley Mays MCHC (RBC) [Mass/Vol] 34.9 g/dL Normal 29.9-35.2 [facility] Comment on above: Performed By: #### C BC #### [facility] [address] [place] [address] Dr. Haley Mays MCV (RBC) [Entitic vol] 91.5 fL Normal 80.0-94.0 [facility] Comment on above: Performed By: #### C BC #### [facility] [address] [place] [address] Dr. Haley Mays MONO # 0.7 103/ul Normal 0.3-0.8 [facility] Comment on above: Performed By: #### C BC #### [facility] [address] [place] [address] Dr. Haley Mays Monocytes/100 WBC (Bld) 11.6 % Normal 1.7-12.0 [facility] Comment on above: Performed By: #### C BC #### [facility] [address] [place] [address] Dr. Haley Mays NEUT # 3.7 103/ul Normal 1.4-6.5 [facility] Comment on above: Performed By: #### C BC #### [facility] [address] [place] [address] Dr. Haley Mays Neutrophils/100 WBC (Bld) 64.7 % Normal 43.0-75.0 [facility] Comment on above: Performed By: #### C BC #### [facility] [address] [place] [address] Dr. Haley Mays Platelet mean volume (Bld) [Entitic vol] 9.1 fL Critically low 9.5-13.5 [facility] Comment on above: Performed By: #### C BC #### [facility] [address] [place] [address] Dr. Haley Mays PLT 281 103/ul Normal 150-450 [facility] Comment on above: Performed By: #### C BC #### [facility] [address] [place] [address] Dr. Haley Mays RBC 3.63 106/ul Critically low 4.70-6.10 [facility] Comment on above: Performed By: #### C BC #### [facility] [address] [place] [address] Dr. Haley Mays WBC 5.7 103/ul Normal 4.0-11.0 [facility] Comment on above: Performed By: #### C BC #### [facility] [address] [place] [address] Dr. Haley Mays PROF CHEM 8 (BAS METB)on Anion gap [Moles/Vol] 15.2 mmol/L Normal [facility] Comment on above: Performed By: #### B MP #### [facility] [address] [place] [address] Dr. Haley Mays Calcium [Mass/Vol] 8.8 mg/dL Normal 8.5-10.1 [facility] Comment on above: Performed By: #### B MP #### [facility] [address] [place] [address] Dr. Haley Mays Chloride [Moles/Vol] 97 mmol/L Critically low 98-107 [facility] Comment on above: Performed By: #### B MP #### [facility] [address] [place] [address] Dr. Haley Mays CO2 [Moles/Vol] 23.5 mmol/L Normal 21.0-32.0 [facility] Comment on above: Performed By: #### B MP #### [facility] [address] [place] [address] Dr. Haley Mays Creatinine [Mass/Vol] 1.44 mg/dL Critically high 0.70-1.30 [facility] Comment on above: Performed By: #### B MP #### [facility] [address] [place] [address] Dr. Haley Mays EGFR-AF NICARAGUAN 58 mL/min/1.73m2 Critically low >=60 [facility] Comment on above: Performed By: #### B MP #### [facility] [address] [place] [address] Dr. Haley Mays EGFR-NON AF NICARAGUAN 48 mL/min/1.73m2 Critically low >=60 [facility] Comment on above: Performed By: #### B MP #### [facility] [address] [address] [address] Haley Mays Glucose [Mass/Vol] 129 mg/dL Critically high 74-106 [facility] Comment on above: Performed By: #### B MP #### [facility] [address] [address] [address] Haley Mays Potassium [Moles/Vol] 4.7 mmol/L Normal 3.5-5.1 [facility] Comment on above: Performed By: #### B MP #### [facility] [address] [address] [address] Haley Mays Sodium [Moles/Vol] 131 mmol/L Critically low 136-145 Th [facility] Comment on above: Performed By: #### B MP #### [facility] [address] [address] [address] Haley Mays Urea nitrogen [Mass/Vol] 16.0 mg/dL Normal 7.0-18.0 [facility] Comment on above: Performed By: #### B MP #### [facility] [address] [place] [address] Dr. Haley Mays Urea nitrogen/Creatinine [Mass ratio] 11.1 mg/mg Normal [facility] Comment on above: Performed By: #### B MP #### [facility] [address] [place] [address] Dr. Haley Mays XR KUB 1 VIEWon 02-04-2023 XR KUB 1 VIEW EXAMINATION: XR KUB 1 VIEW HISTORY: Pain COMPARISON: No relevant comparison available. FINDINGS: BOWEL GAS PATTERN: No abnormal dilation or deviation. CALCIFICATIONS: None significant. OTHER: Mild bilateral hip osteoarthropathy. Degenerative spondylosis. No abnormal gaseous collections. IMPRESSION: Nonobstructive bowel gas pattern Electronically authenticated by: RUSTY SILVA Date: 2023-02-04 13:57 Normal [facility] 01-23-2023 L - -------- Specimen: [id number] Received: 01/24/23 Status: TONY Rosen Num: [id number] Spec Type: Surgical Subm Dr: Vaughn Pretty MD Tissues: A Stomach - Biopsy/Polyp (DUOD BX) B Colon Biopsy (RNDM COL BX) C Colon Biopsy (DESC COL POLYP) Procedures: HE/6, Gross/Micro L4/3 -------- Age/ Patient Sex Location Account Attending Physician -------- Marcelino Escobar/Patria [id number] Vaughn Pretty MD -------- SPEC NUM: [id number] RECD: 01/24/23 STATUS: TONY ROSEN NUM: [id number] REGINALDO: 01/23/23- [facility] DR: Vaughn Pretty MD ENTERED: 01/24/[address] [facility] [address]: SPEC TYPE: Surgical DEPT: S ENTERED BY: [id number] RECV BY: [id number] ORDERED: HE/6, Gross/Micro L4/3 ORDERED: HE6, Gross/Micro [...] celiac, rule out microscopic colitis -------- Specimen: [id number] Received: 01/24/23 Status: TONY Silas Num: [id number] Spec Type: Surgical Subm Dr: Vaughn Pretty MD Tissues: A Stomach - Biopsy/Polyp (DUOD BX) B Colon Biopsy (RNDM COL BX) C Colon Biopsy (DESC COL POLYP) Procedures: ANTHONY, Gross/Micro L4/3 -------- Patient: Marcelino Escobar [id number] (Continued) -------- Specimen: [id number] Received: 01/24/23 (Continued) Signed (signature on file) Amy Perez MD 01/27/23 1005 -------- Specimen: Received: 01/24/23 Status: TONY Rosen Num: [id number] Spec Type: Surgical Subm Dr: Vaughn Pretty MD Tissues: A Stomach - Biopsy/Polyp (DUOD BX) B Colon Biopsy (RNDM COL BX) C Colon Biopsy (DESC COL POLYP) Procedures: PHOENIX/Yovanny, Janeth/Dianna L4/3 -------- Patient: Marcelino Escobar [id number] (Continued) -------- Specimen: Received: 01/24/23 (Continued) Gross [...] microscopic examination confirms the diagnosis. CPT Codes 83268?3 -------- -------- Specimen: [id number] Received: 01/24/23 Status: TONY Rosen Num: [id number] Spec Type: Surgical Subm Dr: Vaughn Pretty MD Tissues: A Stomach - Biopsy/Polyp (DUOD BX) B Colon Biopsy (RNDM COL BX) C Colon Biopsy (DESC COL POLYP) Procedures: HE/6, Gross/Micro L4/3 -------- Patient: Marcelino Escobar [id number] (Continued) -------- Signed (signature on file) Pop Perez MD 01/27/23 1005 Normal [facility] CBC AUTO DIFFon 01-07-2023 BASO # 0.0 103/ul Normal 0.0-0.1 [facility] Comment on above: Performed By: #### C BC #### [facility] [address] [place] [address] Dr. Haley Mays Basophils/100 WBC (Bld) 0.5 % Normal 0.2-2.0 [facility] Comment on above: Performed By: #### C BC #### [facility] [address] [place] [address] Dr. Haley Mays EO # 0.1 103/ul Normal 0.0-0.7 [facility] Comment on above: Performed By: #### C BC #### [facility] [address] [place] [address] Dr. Haley Mays Eosinophils/100 WBC (Bld) 0.8 % Critically low 0.9-7.0 [facility] Comment on above: Performed By: #### C BC #### [facility] [address] [place] [address] Dr. Haley Mays Erythrocyte distribution width (RBC) [Ratio] 12.6 % Normal 11.0-15.0 [facility] Comment on above: Performed By: #### C BC #### [facility] [address] [address] [address] Haley Mays Hematocrit (Bld) [Volume fraction] 37.7 % Critically low 42.0-54.0 [facility] Comment on above: Performed By: #### C BC #### [facility] [address] [place] [address] Dr. Haley Mays Hemoglobin (Bld) [Mass/Vol] 12.3 g/dL Critically low 14.0-18.0 [facility] Comment on above: Performed By: #### C BC #### [facility] [address] [place] [address] Dr. Haley Mays IG # 0.05 10e3/ul Critically high 0.00-0.03 [facility] Comment on above: Performed By: #### C BC #### [facility] [address] [place] [address] Dr. Haley Mays IG % 0.8 % Critically high 0.0-0.5 [facility] Comment on above: Performed By: #### C BC #### [facility] [address] [place] [address] Dr. Haley Mays LYMPH # 1.5 103/ul Normal 1.2-3.8 [facility] Comment on above: Performed By: #### C BC #### [facility] [address] [place] [address] Dr. Haley Mays Lymphocytes/100 WBC (Bld) 25.0 % Normal 20.5-60.0 [facility] Comment on above: Performed By: #### C BC #### [facility] [address] [place] [address] Dr. Hlaey Mays MANUAL DIFF REQ NO Normal [facility] Comment on above: Performed By: #### C BC #### [facility] [address] [place] [address] Dr. Haley Mays MCH (RBC) [Entitic mass] 31.1 pg Normal 25.9-34.0 [facility] Comment on above: Performed By: #### C BC #### [facility] [address] [place] [address] Dr. Haley Mays MCHC (RBC) [Mass/Vol] 32.6 g/dL Normal 29.9-35.2 [facility] Comment on above: Performed By: #### C BC #### [facility] [address] [place] [address] Dr. Haley Mays MCV (RBC) [Entitic vol] 95.4 fL Critically high 80.0-94 .0 [facility] Comment on above: Performed By: #### C BC #### [facility] [address] [place] [address] Dr. Haley Mays MONO # 0.7 103/ul Normal 0.3-0.8 [facility] Comment on above: Performed By: #### C BC #### [facility] [address] [place] [address] Dr. Haley Mays Monocytes/100 WBC (Bld) 11.3 % Normal 1.7-12.0 [facility] Comment on above: Performed By: #### C BC #### [facility] [address] [place] [address] Dr. Haley Mays NEUT # 3.8 103/ul Normal 1.4-6.5 [facility] Comment on above: Performed By: #### C BC #### [facility] [address] [place] [address] Dr. Haley Mays Neutrophils/100 WBC (Bld) 61.6 % Normal 43.0-75.0 [facility] Comment on above: Performed By: #### C BC #### [facility] [address] [place] [address] Dr. Haley Mays Platelet mean volume (Bld) [Entitic vol] 9.2 fL Critically low 9.5-13.5 [facility] Comment on above: Performed By: #### C BC #### [facility] [address] [place] [address] Dr. Haley Mays PLT 300 103/ul Normal 150-450 [facility] Comment on above: Performed By: #### C BC #### [facility] [address] [place] [address] Dr. Haley Mays RBC 3.95 106/ul Critically low 4.70-6.10 [facility] Comment on above: Performed By: #### C BC #### [facility] [address] [place], [place] [address] Dr. Haley Mays WBC 6.1 103/ul Normal 4.0-11.0 [facility] Comment on above: Performed By: #### C BC #### [facility] [address] [place], [place] [address] ABD/PELV W CONon [...] COURTNEY GILL Date: 2022-12-25 08:48 Normal [facility] Complete Blood Count and Dif kodak 12-03-2022 Anisocytosis Ql (Bld) [employer] Other Basophilic stippling LM Ql (Bld) [place] [employer] Other RBC morphology finding Nom (Bld) [facility] [employer] Other IMMUNOGLOBULIN IGA QUANTITIA VEon 12-03-2022 Immunoglobulin A, Qn, Serum 321 mg/dL Normal 61-437 [facility] Comment on above: Performed By: #### C BC #### [facility] [address] [address] [address] Haley Mays TISSUE TRANSGLUTAMINASE IGGo n 12-03-2022 t-Transglutaminase (tTG) IgG 11 U/mL Critically high 0-5 [facility] Comment on above: Result Comment: Nega tive 0 - 5 Weak Positive 6 - 9 Positive >9 Performed By: #### T RNSIGG #### [facility] [address] [address] [address] Haley Mays TRANSGLUTAMINASE IGAon 12-03 t-Transglutaminase (tTG) IgA >100 Critically high 0-3 [facility] Comment on above: Result Comment: Nega tive 0 - 3 Weak Positive 4 - 10 Positive >10 . Tissue Transglutaminase (tTG) has been identified as the endomysial antigen. Studies have demonstr- ated that endomysial IgA antibodies have over 99% specificity for gluten sensitive enteropathy. Performed By: #### C BC #### [facility] [address] [address] [address] Haley Mays tTG IgA/IgG Transglutaminase on 12-03-2022 tTG IgA/IgG Transglutaminase [facility] [employer] Other Basic Metabolic Panelon 11-07 Anion gap [Moles/Vol] 14.2 mmol/L Normal No [facility] [employer] Other Comment on above: Performed By: #### B MP #### [facility] [address] [place] [address] Dr. Haley Mays Calcium [Mass/Vol] 8.9349891 mg/dL 8.5-10 .1 mg/dL [facility] [employer] Other Chloride [Moles/Vol] 110 mmol/L Critically high 98-107 [facility] [employer] Other Comment on above: Performed By: #### B MP #### [facility] [address] [place] [address] Dr. Haley Mays CO2 [Moles/Vol] 26.91348906 mmol/L 21.0-3 2.0 mmol/L [facility] [employer] Other Creatinine [Mass/Vol] 1.42984939 mg/dL Critically high 0.70-1.30 mg/dL [facility] [employer] Other Potassium [Moles/Vol] 5.49504129 mmol/L Critically hig h 3.5-5.1 mmol/L [employer] [facility] [employer] Other Urea nitrogen [Mass/Vol] 25.2419818 mg/dL Critically high 7.0-18.0 mg/dL [facility] [employer] Other Urea nitrogen/Creatinine [Mass ratio] 18.8 mg/mg Normal [facility] [employer] Other Comment on above: Performed By: #### B MP #### [facility] [address] [place], [place] [id number] Dr. Haley Mays Basic Metabolic Panel see note [employer] Other Basic Metabolic Panel 145 mmol/L 136-14 5 mmol/L [facility] [employer] Other Basic Metabolic Panel 106 mg/dL 74-106 mg/dL [employer] Other Basic Metabolic Panel 53 mL/min/1.73m2 Critically low >=60 mL/min/1.73 m2 [facility] [employer] Other Basic Metabolic Panel >60 mL/min/1.73m2 > =60 mL/min/1.73 m2 [employer] Other CBC AUTO DIFFon 12-02-2022 BASO # 0.0 103/ul Normal 0.0-0.1 [facility] Comment on above: Performed By: #### C BC #### [facility] [address] [address] [address] Haley Mays Basophils/100 WBC (Bld) 0.3 % Normal 0.2-2.0 [facility] Comment on above: Performed By: #### C BC #### [facility] [address] [address] [address] Haley Mays EO # 0.1 103/ul Normal 0.0-0.7 [facility] Comment on above: Performed By: #### C BC #### [facility] [address] [address] [address] Haley Mays Eosinophils/100 WBC (Bld) 1.6 % Normal 0.9-7.0 [facility] Comment on above: Performed By: #### C BC #### [facility] [address] [place] [address] Dr. Haley Mays Erythrocyte distribution width (RBC) [Ratio] 12.9 % Normal 11.0-15.0 [facility] Comment on above: Performed By: #### C BC #### [facility] [address] [place] [address] Dr. Haley Mays Hematocrit (Bld) [Volume fraction] 36.7 % Critically low 42.0-54.0 [facility] Comment on above: Performed By: #### C BC #### [facility] [address] [place] [address] Dr. Haley Mays Hemoglobin (Bld) [Mass/Vol] 11.9 g/dL Critically low 14.0-18.0 [facility] Comment on above: Performed By: #### C BC #### [facility] [address] [place] [address] Dr. Haley Mays IG # 0.07 10e3/ul Critically high 0.00-0.03 [facility] Comment on above: Performed By: #### C BC #### [facility] [address] [place] [address] Dr. Haley Mays IG % 1.2 % Critically high 0.0-0.5 [facility] Comment on above: Performed By: #### C BC #### [facility] [address] [place] [address] Dr. Haley Mays LYMPH # 1.4 103/ul Normal 1.2-3.8 [facility] Comment on above: Performed By: #### C BC #### [facility] [address] [address] [address] Haley Mays Lymphocytes/100 WBC (Bld) 23.4 % Normal 20.5-60.0 [facility] Comment on above: Performed By: #### C BC #### [facility] [address] [place] [address] Dr. Haley Myas MANUAL DIFF REQ NO Normal [facility] Comment on above: Performed By: #### C BC #### [facility] [address] [place] [address] Dr. Haley Mays MCH (RBC) [Entitic mass] 30.7 pg Normal 25.9-34.0 [facility] Comment on above: Performed By: #### C BC #### [facility] [address] [place] [address] Dr. Haley Mays MCHC (RBC) [Mass/Vol] 32.4 g/dL Normal 29.9-35.2 [facility] Comment on above: Performed By: #### C BC #### [facility] [address] [place] [address] Dr. Haley Mays MCV (RBC) [Entitic vol] 94.6 fL Critically high 80.0-94 .0 [facility] Comment on above: Performed By: #### C BC #### [facility] [address] [place] [address] Dr. Haley Mays MONO # 0.7 103/ul Normal 0.3-0.8 [facility] Comment on above: Performed By: #### C BC #### [facility] [address] [place] [address] Dr. Haley Mays Monocytes/100 WBC (Bld) 11.5 % Normal 1.7-12.0 [facility] Comment on above: Performed By: #### C BC #### [facility] [address] [address] [address] Haley Mays NEUT # 3.8 103/ul Normal 1.4-6.5 [facility] Comment on above: Performed By: #### C BC #### [facility] [address] [address] [address] Haley Mays Neutrophils/100 WBC (Bld) 62.0 % Normal 43.0-75.0 [facility] Comment on above: Performed By: #### C BC #### [facility] [address] [address] [address] Haley Mays Platelet mean volume (Bld) [Entitic vol] 9.4 fL Critically low 9.5-13.5 [facility] Comment on above: Performed By: #### C BC #### [facility] [address] [place] [address] Dr. Haley Mays PLT 269 103/ul Normal 150-450 [facility] Comment on above: Performed By: #### C BC #### [facility] [address] [place] [address] Dr. Haley Mays RBC 3.88 106/ul Critically low 4.70-6.10 [facility] Comment on above: Performed By: #### C BC #### [facility] [address] [place] [address] Dr. Haley Mays WBC 6.1 103/ul Normal 4.0-11.0 [facility] Comment on above: Performed By: #### C BC #### [facility] [address] [address] [address] Haley Mays FERRITINon 12-02-2022 Ferritin [Mass/Vol] 57.0 ng/mL Normal 26.0-388.0 [facility] Comment on above: Performed By: #### C BC #### [facility] [address] [address] [address] Haley Mays Ferritin [Mass/Vol] 57.1940639 ng/mL 26.0 -388.0 ng/mL [employer] Other IRON AND TIBCon 12-02-2022 % SATURATION 34.5 % Normal [facility] Comment on above: Performed By: #### C BC #### [facility] [address] [address] [address] Haley Mays Iron [Mass/Vol] 88.0 ug/dL Normal 65.0-175.0 [facility] Comment on above: Performed By: #### C BC #### [facility] [address] [address] [address] Haley Mays TIBC DIRECT 255.0 ug/dL Normal 250.0-450.0 [facility] Comment on above: Performed By: #### C BC #### [facility] [address] [place] [address] Dr. Haley Mays Iron [Mass/Vol] 88.6931646 ug/dL 65.0-175 .0 ug/dL [employer] Other IRON AND TIBC 255.0 ug/dL 250.0-450.0 ug/dL [employer] Other IRON AND TIBC 34.5 % [employer] Other PROF CHEM 8 (BAS METB)on Calcium [Mass/Vol] 8.7 mg/dL Normal 8.5-10.1 [facility] Comment on above: Performed By: #### B MP #### [facility] [address] [place] [address] Dr. Haley Mays CO2 [Moles/Vol] 26.0 mmol/L Normal 21.0-32.0 [facility] Comment on above: Performed By: #### B MP #### [facility] [address] [address] [address] Haley Mays Creatinine [Mass/Vol] 1.33 mg/dL Critically high 0.70-1.30 [facility] Comment on above: Performed By: #### B MP #### [facility] [address] [address] [address] Haley Mays EGFR-AF NICARAGUAN >60 Normal >=60 [facility] Comment on above: Performed By: #### B MP #### [facility] [address] [address] [address] Haley Mays EGFR-NON AF NICARAGUAN 53 mL/min/1.73m2 Critically low >=60 [facility] Comment on above: Performed By: #### B MP #### [facility] [address] [address] [address] Haley Mays Glucose [Mass/Vol] 106 mg/dL Normal 74-106 [facility] Comment on above: Performed By: #### B MP #### [facility] [address] [address] [address] Haley Mays Potassium [Moles/Vol] 5.2 mmol/L Critically high 3.5-5.1 [facility] Comment on above: Performed By: #### B MP #### [facility] [address] [address] [address] Haley Mays Sodium [Moles/Vol] 145 mmol/L Normal 136-145 [facility] Comment on above: Performed By: #### B MP #### [facility] [address] [address] [address] Haley Mays Urea nitrogen [Mass/Vol] 25.0 mg/dL Critically high 7.0-18.0 [facility] Comment on above: Performed By: #### B MP #### [facility] [address] [address] [address] Haley Mays VIT B12 AND FOLATEon 023 FOLATE 19.60 ng/mL Normal 8.60-58.90 [facility] Comment on above: Performed By: #### C BC #### [facility] [address] [address] [address] Haley Mays Cobalamin (Vitamin B12) [Mass/Vol] pg/mL Critically high 193.0-986.0 [employer] Other Comment on above: Performed By: #### C BC #### [facility] [address] [place] [address] Dr. Haley Mays VIT B12 AND FOLATE 19.60 ng/mL 8.60-58.9 0 ng/mL [employer] Other CBC AUTO DIFFon 09-20-2022 BASO # 0.0 103/ul Normal 0.0-0.1 [facility] Comment on above: Performed By: #### C BC #### [facility] [address] [address] [address] Haley Mays Basophils/100 WBC (Bld) 0.3 % Normal 0.2-2.0 [facility] Comment on above: Performed By: #### C BC #### [facility] [address] [address] [address] Haley Mays EO # 0.1 103/ul Normal 0.0-0.7 [facility] Comment on above: Performed By: #### C BC #### [facility] [address] [address] [address] Haley Mays Eosinophils/100 WBC (Bld) 1.4 % Normal 0.9-7.0 [facility] Comment on above: Performed By: #### C BC #### [facility] [address] [address] [address] Haley Mays Erythrocyte distribution width (RBC) [Ratio] 12.9 % Normal 11.0-15.0 [facility] Comment on above: Performed By: #### C BC #### [facility] [address] [address] [address] Haley Mays Hematocrit (Bld) [Volume fraction] 39.5 % Critically low 42.0-54.0 [facility] Comment on above: Performed By: #### C BC #### [facility] [address] [address] [address] Haley Mays Hemoglobin (Bld) [Mass/Vol] 11.9 g/dL Critically low 14.0-18.0 [facility] Comment on above: Performed By: #### C BC #### [facility] [address] [address] [address] Haley Mays IG # 0.06 10e3/ul Critically high 0.00-0.03 [facility] Comment on above: Performed By: #### C BC #### [facility] [address] [place] [address] Dr. Haley Mays IG % 0.9 % Critically high 0.0-0.5 [facility] Comment on above: Performed By: #### C BC #### [facility] [address] [place] [address] Dr. Haley Mays LYMPH # 1.7 103/ul Normal 1.2-3.8 [facility] Comment on above: Performed By: #### C BC #### [facility] [address] [place] [address] Dr. Haley Mays Lymphocytes/100 WBC (Bld) 25.6 % Normal 20.5-60.0 [facility] Comment on above: Performed By: #### C BC #### [facility] [address] [place] [address] Dr. Haley Mays MANUAL DIFF REQ NO Normal [facility] Comment on above: Performed By: #### C BC #### [facility] [address] [place] [address] Dr. Haley Mays MCH (RBC) [Entitic mass] 31.4 pg Normal 25.9-34.0 [facility] Comment on above: Performed By: #### C BC #### [facility] [address] [place] [address] Dr. Haley Mays MCHC (RBC) [Mass/Vol] 30.1 g/dL Normal 29.9-35.2 [facility] Comment on above: Performed By: #### C BC #### [facility] [address] [place] [address] Dr. Haley Mays MCV (RBC) [Entitic vol] 104.2 fL Critically high 80.0-94 .0 [facility] Comment on above: Performed By: #### C BC #### [facility] [address] [place] [address] Dr. Haley Mays MONO # 0.9 103/ul Critically high 0.3-0.8 [facility] Comment on above: Performed By: #### C BC #### [facility] [address] [address] [address] Haley Mays Monocytes/100 WBC (Bld) 14.0 % Critically high 1.7-12. 0 [facility] Comment on above: Performed By: #### C BC #### [facility] [address] [address] [address] Haley Mays NEUT # 3.7 103/ul Normal 1.4-6.5 [facility] Comment on above: Performed By: #### C BC #### [facility] [address] [address] [address] Haley Mays Neutrophils/100 WBC (Bld) 57.8 % Normal 43.0-75.0 [facility] Comment on above: Performed By: #### C BC #### [facility] [address] [address] [address] Haley Mays Platelet mean volume (Bld) [Entitic vol] 9.6 fL Normal 9.5-13.5 [facility] Comment on above: Performed By: #### C BC #### [facility] [address] [address] [address] Haley Mays PLT 291 103/ul Normal 150-450 [facility] Comment on above: Performed By: #### C BC #### [facility] [address] [address] [address] Haley Mays RBC 3.79 106/ul Critically low 4.70-6.10 [facility] Comment on above: Performed By: #### C BC #### [facility] [address] [address] [address] Haley Mays WBC 6.4 103/ul Normal 4.0-11.0 [facility] Comment on above: Performed By: #### C BC #### [facility] [address] [address] [address] Haley Mays LIPID PROFILEon 09-20-2022 CHOL-HDL RATIO NORM SEE BELOW Normal [facility] Comment on above: Result Comment: 3.3 - 4.4 LOW RISK 4.4 - 7.1 AVERAGE RISK 7.1 - 11.0 MODERATE RISK >11.0 HIGH RISK Performed By: #### L IPID, BMP, ALT #### [facility] [address] [address] [address] Haley Mays Cholesterol [Mass/Vol] 123 mg/dL Normal <=200 [facility] Comment on above: Performed By: #### L IPID, BMP, ALT #### [facility] [address] [address] [address] Haley Mays Cholesterol in HDL [Mass/Vol] 26 mg/dL Critically low 40-60 [facility] Comment on above: Performed By: #### L IPID, BMP, ALT #### [facility] [address] [address] [address] Haley Mays Cholesterol in LDL [Mass/Vol] 57.6 mg/dL Normal [facility] Comment on above: Performed By: #### L IPID, BMP, ALT #### [facility] [address] [address] [address] Haley Mays Cholesterol.total/Tri sterol in HDL [Mass ratio] 4.7 {ratio} Normal [facility] Comment on above: Performed By: #### L IPID, BMP, ALT #### [facility] [address] [place] [address] Dr. Haley Mays HDL NORMAL > or = 60 mg/dl - LO W CARDIOVASCULAR RISK <40 mg/dl - HIGH CARDIOVASCULAR RISK Normal [facility] Comment on above: Performed By: #### L IPID, BMP, ALT #### [facility] [address] [address] [address] Haley Mays LDL CALC NORMAL SEE BELOW Normal [facility] Comment on above: Result Comment: <100 mg/dl OPTIMAL 100 - 129 mg/dl NEAR OR ABOVE OPTIMAL 130 - 159 mg/dl BORDERLINE HIGH 160 - 189 mg/dl HIGH >190 mg/dl VERY HIGH Performed By: #### L IPID, BMP, ALT #### [facility] [address] [address] [address] Haley Mays Triglyceride [Mass/Vol] 197 mg/dL Critically high <=150 [facility] Comment on above: Performed By: #### L IPID, BMP, ALT #### [facility] [address] [place] [address] Dr. Haley Mays VLDL CALC 39.4 mg/dL Normal [facility] Comment on above: Performed By: #### L IPID, BMP, ALT #### [facility] [address] [place] [address] Dr. Haley Mays PROF CHEM 8 (BAS METB)on Anion gap [Moles/Vol] 13.9 mmol/L Normal [facility] Comment on above: Performed By: #### L IPID, BMP, ALT #### [facility] [address] [place] [address] Dr. Haley Mays Calcium [Mass/Vol] 8.6 mg/dL Normal 8.5-10.1 [facility] Comment on above: Performed By: #### L IPID, BMP, ALT #### [facility] [address] [place] [address] Dr. Haley Mays Chloride [Moles/Vol] 105 mmol/L Normal 98-107 [facility] Comment on above: Performed By: #### L IPID, BMP, ALT #### [facility] [address] [place] [address] Dr. Haley Mays CO2 [Moles/Vol] 25.1 mmol/L Normal 21.0-32.0 [facility] Comment on above: Performed By: #### L IPID, BMP, ALT #### [facility] [address] [place] [address] Dr. Haley Mays Creatinine [Mass/Vol] 1.47 mg/dL Critically high 0.70-1.30 [facility] Comment on above: Performed By: #### L IPID, BMP, ALT #### [facility] [address] [place] [address] Dr. Haley Mays EGFR-AF NICARAGUAN 57 mL/min/1.73m2 Critically low >=60 [facility] Comment on above: Performed By: #### L IPID, BMP, ALT #### [facility] [address] [address] [address] Haley Mays EGFR-NON AF NICARAGUAN 47 mL/min/1.73m2 Critically low >=60 [facility] Comment on above: Performed By: #### L IPID, BMP, ALT #### [facility] [address] [address] [address] Haley Mays Glucose [Mass/Vol] 71 mg/dL Critically low 74-106 [facility] Comment on above: Performed By: #### L IPID, BMP, ALT #### [facility] [address] [address] [address] Haley Mays Potassium [Moles/Vol] 5.0 mmol/L Normal 3.5-5.1 [facility] Comment on above: Performed By: #### L IPID, BMP, ALT #### [facility] [address] [address] [address] Haley Mays Sodium [Moles/Vol] 139 mmol/L Normal 136-145 [facility] Comment on above: Performed By: #### L IPID, BMP, ALT #### [facility] [address] [address] [address] Haley Mays Urea nitrogen [Mass/Vol] 27.0 mg/dL Critically high 7.0-18.0 [facility] Comment on above: Performed By: #### L IPID, BMP, ALT #### [facility] [address] [address] [address] Haley Mays Urea nitrogen/Creatinine [Mass ratio] 18.4 mg/mg Normal [facility] Comment on above: Performed By: #### L IPID, BMP, ALT #### [facility] [address] [address] [address] Haley Mays [facility] 09-20-2022 ALT [Catalytic activity/Vol] 37 U/L Normal 16-63 [facility] Comment on above: Performed By: #### L IPID, BMP, ALT #### [facility] [address] [address] [address] Haley Mays Vital Signs Date Time Vital Sign Value Performing Clinician Facility 08-31-2024 08:55-0500 Body height 180.34 cm [facility] 08-31-2024 08:55-0500 Body mass index (BMI) [Ratio] 26.4 kg/m2 [facility] 08-31-2024 08:55-0500 Body weight 85.95 kg [facility] 08-31-2024 08:55-0500 Diastolic blood pressure 89 mm[Hg] [facility] 08-31-2024 08:55-0500 Heart rate 80 /min [facility] 08-31-2024 08:55-0500 Respiratory rate 12 /min [facility] 08-31-2024 08:55-0500 Systolic blood pressure 139 mm[Hg] [facility] 08-30-2024 10:22-0500 Diastolic blood pressure 76 mm[Hg] Ashkan Pacheco MD [facility] 08-30-2024 10:22-0500 Systolic blood pressure 138 mm[Hg] Ashkan Pacheco MD [facility] 07-01-2024 11:57-0400 Body height 180.34 cm [facility] 07-01-2024 11:57-0400 Body mass index (BMI) [Ratio] 25.7 kg/m2 [facility] 07-01-2024 11:57-0400 Body temperature 97.5 [degF] [facility] 07-01-2024 11:57-0400 Body weight 83.51 kg [facility] 07-01-2024 11:57-0400 Diastolic blood pressure 92 mm[Hg] [facility] 07-01-2024 11:57-0400 Heart rate 76 /min [facility] 07-01-2024 11:57-0400 Respiratory rate 16 /min [facility] 07-01-2024 11:57-0400 SaO2% (BldA) [Mass fraction] 96 % [facility] 07-01-2024 11:57-0400 Systolic blood pressure 139 mm[Hg] [facility] 05-03-2024 09:42-0400 Body height 180.34 cm [facility] 05-03-2024 09:42-0400 Body mass index (BMI) [Ratio] 25.4 kg/m2 [facility] 05-03-2024 09:42-0400 Body weight 82.55 kg [facility] 05-03-2024 09:42-0400 Diastolic blood pressure 78 mm[Hg] [facility] 05-03-2024 09:42-0400 Heart rate 82 /min [facility] 05-03-2024 09:42-0400 Systolic blood pressure 126 mm[Hg] [facility] 04-01-2024 14:13-0400 Body height 180.34 cm [facility] 04-01-2024 14:13-0400 Body mass index (BMI) [Ratio] 25.1 kg/m2 [facility] 04-01-2024 14:13-0400 Body temperature 97.8 [degF] [facility] 04-01-2024 14:13-0400 Body weight 81.76 kg [facility] 04-01-2024 14:13-0400 Diastolic blood pressure 80 mm[Hg] [facility] 04-01-2024 14:13-0400 Heart rate 74 /min [facility] 04-01-2024 14:13-0400 Respiratory rate 18 /min [facility] 04-01-2024 14:13-0400 SaO2% (BldA) [Mass fraction] 99 % [facility] 04-01-2024 14:13-0400 Systolic blood pressure 122 mm[Hg] [facility] 03-18-2024 14:22-0400 Body height 180.34 cm [facility] 03-18-2024 14:22-0400 Body mass index (BMI) [Ratio] 25.5 kg/m2 [facility] 03-18-2024 14:22-0400 Body temperature 98.5 [degF] [facility] 03-18-2024 14:[id number] Body weight 83 kg [facility] 03-18-2024 14:22-0400 Diastolic blood pressure 75 mm[Hg] [facility] 03-18-2024 14:22-0400 Heart rate 67 /min [facility] 03-18-2024 14:22-0400 Respiratory rate 16 /min [facility] 03-18-2024 14:22-0400 SaO2% (BldA) [Mass fraction] 97 % [facility] 03-18-2024 14:22-0400 Systolic blood pressure 125 mm[Hg] [facility] 01-01-2024 09:13-0400 Body height 182.88 cm [facility] 01-01-2024 09:13-0400 Body mass index (BMI) [Ratio] 24.7 kg/m2 [facility] 01-01-2024 09:13-0400 Body weight 82.61 kg [facility] 01-01-2024 09:13-0400 Diastolic blood pressure 87 mm[Hg] [facility] 01-01-2024 09:13-0400 Heart rate 81 /min [facility] 01-01-2024 09:13-0400 Respiratory rate 16 /min [facility] 01-01-2024 09:13-0400 Systolic blood pressure 136 mm[Hg] [facility] 12-22-2023 14:12-0400 Blood Pressure Location Graham VELAZQUEZ [facility] 12-22-2023 14:12-0400 Body temperature 98.6 [degF] Graham VELAZQUEZ [facility] 12-22-2023 14:12-0400 Diastolic blood pressure 87 mm[Hg] Graham VELAZQUEZ [facility] 12-22-2023 14:12-0400 Heart rate 75 /min Graham VELAZQUEZ [facility] 12-22-2023 14:12-0400 Respiratory rate 16 /min Graham VELAZQUEZ [facility] 12-22-2023 14:12-0400 Systolic blood pressure 138 mm[Hg] Graham VELAZQUEZ [facility] 11-05-2023 11:43-0500 Body height 182.88 cm [facility] 11-05-2023 11:43-0500 Body mass index (BMI) [Ratio] 24.5 kg/m2 [facility] 11-05-2023 11:43-0500 Body weight 82.1 kg [facility] 11-05-2023 11:43-0500 Diastolic blood pressure 83 mm[Hg] [facility] 11-05-2023 11:43-0500 Heart rate 87 /min [facility] 11-05-2023 11:43-0500 Respiratory rate 12 /min [facility] 11-05-2023 11:43-0500 Systolic blood pressure 158 mm[Hg] [facility] 09-19-2023 09:30-0500 Body height 182.88 cm Anirudh Ball Other [facility] 09-19-2023 09:30-0500 Body mass index (BMI) [Ratio] 23.62 kg/m2 Anirudh Ball Other [facility] [employer] Other 09-19-2023 09:30-0500 Body weight 79.02 kg Anirudh Ball Other [facility] [employer] Other 09-19-2023 09:30-0500 Body weight 79.01 kg [facility] 09-19-2023 09:30-0500 Diastolic blood pressure 80 mm[Hg] Anirudh Ball Other [facility] 09-19-2023 09:30-0500 Respiratory rate 12 /min Anirudh Ball Other [facility] [employer] Other 09-19-2023 09:30-0500 Systolic blood pressure 135 mm[Hg] Anirudh Ball Other [facility] 08-20-2023 08:45-0500 Body height 182.88 cm Anirudh Ball Other [facility] 08-20-2023 08:45-0500 Body mass index (BMI) [Ratio] 22.62 kg/m2 Anirudh Ball Other [facility] [employer] Other 08-20-2023 08:45-0500 Body weight 75.66 kg Anirudh Ball Other [facility] [employer] Other 08-20-2023 08:45-0500 Body weight 75.65 kg [facility] 08-20-2023 08:45-0500 Diastolic blood pressure 93 mm[Hg] Anirudh Ball Other [facility] 08-20-2023 08:45-0500 Respiratory rate 12 /min Anirudh Ball Other [facility] [employer] Other 08-20-2023 08:45-0500 Systolic blood pressure 177 mm[Hg] Anirudh Ball Other [facility] 04-17-2023 11:00-0400 Body height 182.88 cm Anirudh Ball Other [facility] [employer] Other 04-17-2023 11:00-0400 Body mass index (BMI) [Ratio] 22.51 kg/m2 Anirudh Ball Other [facility] [employer] Other 04-17-2023 11:00-0400 Body weight 75.3 kg Anirudh Ball Other [facility] [employer] Other 04-17-2023 11:00-0400 Diastolic blood pressure 76 mm[Hg] Anirudh Ball Other [employer] Other 04-17-2023 11:00-0400 Systolic blood pressure 144 mm[Hg] Anirudh Ball Other [employer] Other 04-14-2023 14:00-0400 Body height 182.88 cm Imad Asaad Other [employer] Other 04-14-2023 14:00-0400 Body mass index (BMI) [Ratio] 22.38 kg/m2 Imad Asaad Other [employer] Other 04-14-2023 14:00-0400 Body weight 74.84 kg Imad Asaad Other [employer] Other 04-14-2023 14:00-0400 Diastolic blood pressure 85 mm[Hg] Imad Asaad Other [employer] Other 04-14-2023 14:00-0400 Systolic blood pressure 149 mm[Hg] Imad Asaad Other [employer] Other 02-05-2023 09:30-0400 Body height 182.88 cm Anirudh Ball Other [employer] Other 02-05-2023 09:30-0400 Body mass index (BMI) [Ratio] 20.67 kg/m2 Anirudh Ball Other [employer] Other 02-05-2023 09:30-0400 Body weight 69.13 kg Anirudh Ball Other [employer] Other 02-05-2023 09:30-0400 Diastolic blood pressure 74 mm[Hg] Anirudh Ball Other [employer] Other 02-05-2023 09:30-0400 Respiratory rate 12 /min Anirudh Ball Other [employer] Other 02-05-2023 09:30-0400 Systolic blood pressure 129 mm[Hg] Anirudh Ball Other [facility] [employer] Other 01-23-2023 16:15-0400 Diastolic blood pressure 88 mm[Hg] DO Anirudh Ball Work Phone: [facility] 01-23-2023 16:15-0400 Heart rate 68 /min DO Anirudh Ball Work Phone: [facility] 01-23-2023 16:15-0400 Respiratory rate 16 /min DO Anirudh Ball Work Phone: [facility] 01-23-2023 16:15-0400 SaO2% (BldA) [Mass fraction] 99 % DO Anirudh Ball Work Phone: [facility] 01-23-2023 16:15-0400 Systolic blood pressure 128 mm[Hg] DO Anirudh Ball Work Phone: [facility] 01-23-2023 13:44-0400 Body height 180.34 cm DO Anirudh Ball Work Phone: [facility] 01-23-2023 13:44-0400 Body weight 69.39 kg DO Anirudh Ball Work Phone: [facility] 01-06-2023 14:15-0400 Body height 182.88 cm Imad Asaad Other [facility] [employer] Other 01-06-2023 14:15-0400 Body mass index (BMI) [Ratio] 21.7 kg/m2 Imad Asaad Other [employer] [facility] [employer] Other 01-06-2023 14:15-0400 Body weight 72.58 kg Imad Asaad Other [employer] Other 01-06-2023 14:15-0400 Diastolic blood pressure 84 mm[Hg] Imad Asaad Other [employer] Other 01-06-2023 14:15-0400 Systolic blood pressure 150 mm[Hg] Imad Asaad Other [employer] Other 12-18-2022 12:30-0400 Body height 182.88 cm Anirduh Ball Other [employer] Other 12-18-2022 12:30-0400 Body mass index (BMI) [Ratio] 21.62 kg/m2 Anirudh Ball Other [employer] Other 12-18-2022 12:30-0400 Body weight 72.3 kg Anirudh Ball Other [employer] Other 12-18-2022 12:30-0400 Diastolic blood pressure 69 mm[Hg] Anirudh Ball Other [employer] Other 12-18-2022 12:30-0400 Respiratory rate 12 /min Anirudh Ball Other [employer] Other 12-18-2022 12:30-0400 Systolic blood pressure 114 mm[Hg] Anirudh Ball Other [employer] Other 12-02-2022 11:00-0400 Body height 182.88 cm Anirudh Ball Other [employer] Other 12-02-2022 11:00-0400 Body mass index (BMI) [Ratio] 21.64 kg/m2 Anirudh Ball Other [employer] Other 12-02-2022 11:00-0400 Body weight 72.39 kg Anirudh Ball Other [employer] Other 12-02-2022 11:00-0400 Diastolic blood pressure 83 mm[Hg] Anirudh Ball Other [employer] Other 12-02-2022 11:00-0400 Respiratory rate 12 /min Anirudh Ball Other [employer] Other 12-02-2022 11:00-0400 Systolic blood pressure 149 mm[Hg] Anirudh Ball Other [employer] Other 11-25-2022 08:34-0400 Blood Pressure Location [facility]ELAZQUE[facility] 11-25-2022 08:34-0400 Diastolic blood pressure 74 mm[Hg] Graham VELAZQUEZ [facility] 11-25-2022 08:34-0400 Heart rate 69 /min Grahamhoa VELAZQUEZ [facility] 11-25-2022 08:34-0400 Respiratory rate 16 /min Grahamhoa VELAZQUEZ [facility] 11-25-2022 08:34-0400 Systolic blood pressure 137 mm[Hg] Graham VELAZQUEZ [facility] 09-20-2022 09:30-0500 Body height 182.88 cm Anirudh Ball Other [employer] Other 09-20-2022 09:30-0500 Body mass index (BMI) [Ratio] 22.46 kg/m2 Anirudh Ball Other [employer] Other 09-20-2022 09:30-0500 Body weight 75.12 kg Anirudh Ball Other [employer] Other 09-20-2022 09:30-0500 Diastolic blood pressure 62 mm[Hg] Anirudh Ball Other [employer] Other 09-20-2022 09:30-0500 Respiratory rate 12 /min Anirudh Wang Other [employer] Other 09-20-2022 09:30-0500 Systolic blood pressure 118 mm[Hg] Anirudh Wang Other [employer] Other Encounters Encounter Date Encounter Type Care Provider Facility Start: 12-27-2024 ambulatory Graham Ruby ANDREEA Weiss ty:EU Erika Start: 09-20-2024 End: 09-20-2024 ambulatory [facility] Work Phone: Start: 09-20-2024 End: 09-20-2024 Patient encounter procedure [facility] Work Phone: Start: 09-02-2024 Non-patient / Non-visit [facility] Work Phone: Start: 08-31-2024 End: 08-31-2024 Patient encounter procedure [facility] Work Phone: Start: 08-30-2024 End: 08-30-2024 Ashkan Pacheco Work Phone: [facility] Start: 08-30-2024 ambulatory Ashkan Pacheco [facility] Start: 08-18-2024 End: 08-18-2024 Patient encounter procedure [facility] Work Phone: Start: 07-19-2024 End: 07-19-2024 ambulatory [facility] Work Phone: Start: 07-19-2024 End: 07-19-2024 Patient encounter procedure [facility] Work Phone: Start: 07-01-2024 End: 07-01-2024 ambulatory [facility] Work Phone: Start: 07-01-2024 End: 07-01-2024 Patient encounter procedure [facility] [place] Work Phone: Start: 06-22-2024 Non-patient / Non-visit [facility] Work Phone: Start: 06-18-2024 End: 06-18-2024 ambulatory [facility] Work Phone: Start: 06-18-2024 End: 06-18-2024 Patient encounter procedure [facility] Work Phone: Start: 06-07-2024 End: 06-07-2024 Ashkan Al Shweiki Work Phone: [facility] Start: 06-07-2024 ambulatory Ashkan Al Shweiki [facility] [place] Start: 05-31-2024 End: 05-31-2024 Ashkan Al Shweiki Work Phone: [facility] Start: 05-31-2024 ambulatory Ashkan Al Shweiki [facility] [place] Start: 05-19-2024 End: 05-19-2024 ambulatory [facility] Work Phone: Start: 05-19-2024 End: 05-19-2024 Patient encounter procedure [facility] Work Phone: Start: 05-03-2024 End: 05-03-2024 ambulatory [facility] Work Phone: Start: 05-03-2024 End: 05-03-2024 Patient encounter procedure [facility] Work Phone: Start: 04-30-2024 End: 04-30-2024 Office outpatient visit 25 minutes Ashkan Al Shweiki Work Phone: [facility] Start: 04-30-2024 ambulatory Ashkan Al Shweiki [facility] [place] Start: 04-07-2024 End: 04-07-2024 ambulatory [facility] Work Phone: Start: 04-07-2024 End: 04-07-2024 Patient encounter procedure [facility] Work Phone: Start: 04-01-2024 End: 04-01-2024 ambulatory [facility] Work Phone: Start: 04-01-2024 End: 04-01-2024 Patient encounter procedure [facility] [place] Work Phone: Start: 03-19-2024 Non-patient / Non-visit [facility] Work Phone: Start: 03-18-2024 End: 03-18-2024 ambulatory [facility] Work Phone: Start: 03-18-2024 End: 03-18-2024 Patient encounter procedure [facility] Work Phone: Start: 03-04-2024 End: 03-04-2024 ambulatory [facility] Work Phone: Start: 03-04-2024 End: 03-04-2024 Patient encounter procedure [facility] Work Phone: Start: 01-29-2024 End: 01-29-2024 ambulatory [facility] Work Phone: Start: 01-29-2024 End: 01-29-2024 Patient encounter procedure [facility] Work Phone: Start: 01-20-2024 End: 01-20-2024 May Brandon Layton Work Phone: [facility] Start: 01-01-2024 End: 01-01-2024 ambulatory [facility] Work Phone: Start: 01-01-2024 End: 01-01-2024 Patient encounter procedure [facility] Work Phone: Start: 12-30-2023 End: 12-30-2023 ambulatory [facility] Work Phone: Start: 12-30-2023 End: 12-30-2023 Patient encounter procedure [facility] Work Phone: Start: 12-22-2023 End: 12-23-2023 ambulatory Grahamhoa VELAZQUEZ Facility:[facility] Start: 12-22-2023 End: 12-22-2023 Patient encounter procedure Graham VELAZQUEZ [facility] Start: 12-16-2023 Non-patient / Non-visit [facility] Work Phone: Start: 12-10-2023 Non-patient / Non-visit [facility] Work Phone: Start: 12-09-2023 Non-patient / Non-visit [facility] Work Phone: Start: 11-28-2023 End: 11-28-2023 ambulatory [facility] Work Phone: Start: 11-28-2023 End: 11-28-2023 Patient encounter procedure [facility] Work Phone: Start: 11-05-2023 End: 11-05-2023 Patient encounter procedure [facility] Work Phone: Start: 10-24-2023 End: 10-24-2023 ambulatory [facility] Work Phone: Start: 10-24-2023 End: 10-24-2023 Patient encounter procedure [facility] Work Phone: Start: 10-21-2023 End: 10-21-2023 Francoise Layton Work Phone: [facility] Start: 09-22-2023 End: 09-22-2023 ambulatory Anirudh Wang Other [employer] Other Start: 09-22-2023 Nursing evaluation o f patient and report Anirudh Wang [facility] Start: 09-19-2023 End: 09-19-2023 ambulatory Anirudh Wang Other [employer] Other Start: 09-19-2023 Office outpatient visit 15 minutes Anirudh Wang [facility] Start: 09-19-2023 End: 09-19-2023 Patient encounter procedure [facility] Work Phone: Start: 08-26-2023 End: 08-26-2023 May El Rashedy Work Phone: [facility] Start: 08-21-2023 End: 08-21-2023 Office outpatient visit 15 minutes Avani Mcguire Work Phone: [facility] Start: 08-20-2023 End: 08-20-2023 ambulatory Anirudh Wang Other [employer] Other Start: 08-20-2023 Office outpatient visit 15 minutes Anirudh Wang [facility] Start: 08-20-2023 End: 08-20-2023 Patient encounter procedure [facility] Work Phone: Start: 08-06-2023 End: 08-06-2023 ambulatory Anirudh Wang Other [employer] Other Start: 08-06-2023 Telephone encounter Anirudh Wang [facility] Start: 07-29-2023 End: 07-29-2023 Office outpatient visit 25 minutes May El Rashedy Work Phone: [facility] Start: 07-28-2023 End: 07-28-2023 ambulatory Anirudh Wang Other [employer] Other Start: 07-28-2023 Telephone encounter Anirudh Wang [facility] Start: 07-21-2023 End: 07-21-2023 ambulatory Anirudh Wang Other [employer] Other Start: 07-21-2023 Nursing evaluation o f patient and report Anirudh Wang [facility] Start: 07-14-2023 End: 07-14-2023 ambulatory Anirudh Wang Other [employer] Other Start: 07-14-2023 Telephone encounter Anirudh WING [facility] Start: 05-19-2023 End: 05-19-2023 ambulatory Tricia Weiss Other [employer] Other Start: 05-19-2023 Nursing evaluation o f patient and report Tricia Weiss [facility] Start: 05-19-2023 Telephone encounter Anirudh WING [facility] Start: 05-16-2023 End: 05-16-2023 ambulatory Imad Asaad Other [employer] Other Start: 05-16-2023 Telephone encounter Imad Asaad [facility] Start: 05-09-2023 End: 05-09-2023 ambulatory Imad Asaad Other [employer] Other Start: 05-09-2023 Telephone encounter Imad Asaad [facility] Start: 05-02-2023 End: 05-02-2023 ambulatory Anirudh Wang Other [employer] Other Start: 05-02-2023 Telephone encounter Anirudh WING [facility] Start: 04-17-2023 End: 04-17-2023 ambulatory Anirudh Wang Other [employer] Other Start: 04-17-2023 Office outpatient visit 25 minutes Anirudh Wang [facility] Start: 04-14-2023 End: 04-14-2023 ambulatory Imad Asaad Other [employer] Other Start: 04-14-2023 Office outpatient visit 25 minutes Imad Asaad [facility] Start: 04-10-2023 Telephone encounter Anirudh [facility]ING [facility] Start: 04-10-2023 End: 04-10-2023 ambulatory Anirudh Wang [facility] [employer] Other Start: 04-04-2023 End: 04-04-2023 ambulatory Anirudh Wang Other [employer] Other Start: 04-04-2023 Telephone encounter Anirudh [facility] Start: 04-01-2023 End: 04-01-2023 ambulatory Anirudh Wang Other [employer] Other Start: 04-01-2023 Telephone encounter Anirudh WING [facility] Start: 03-27-2023 End: 03-27-2023 ambulatory Anirudh Wang Facility:[facility] Start: 03-27-2023 End: 03-27-2023 ambulatory DO Anirudh Wang Work Phone: [facility] Work Phone: Start: 03-27-2023 End: 03-27-2023 Patient encounter procedure DO Anirudh Wang Work Phone: [facility] [employer] Work Phone: Start: 02-18-2023 End: 02-18-2023 ambulatory Anirudh Wang Other [employer] Other Start: 02-18-2023 Telephone encounter Anirudh [facility] Start: 02-10-2023 End: 02-10-2023 ambulatory Anirudh Wang Other [employer] Other Start: 02-10-2023 Nursing evaluation o f patient and report Anirudh Wang [facility] Start: 02-05-2023 End: 02-05-2023 ambulatory Anirudh Wang Other [employer] Other Start: 02-05-2023 Office outpatient visit 15 minutes Anirudh Wang [facility] Start: 02-04-2023 End: 02-04-2023 ambulatory WAI Bakari DAT Facility:[facility] Start: 01-31-2023 End: 01-31-2023 ambulatory Imad Asaad Other [employer] Other Start: 01-31-2023 Telephone encounter Imad Asaad [facility] Start: 01-23-2023 End: 01-23-2023 ambulatory Imad Asaad Facility:[facility] Start: 01-23-2023 End: 01-23-2023 Admission to same day surgery center DO Anirudh Adeline Work Phone: [facility] Work Phone: Start: 01-07-2023 End: 01-08-2023 ambulatory IMAD ASAAD Facility: Start: 01-06-2023 End: 01-06-2023 ambulatory Imad Asaad Other [employer] Other Start: 01-06-2023 Office outpatient ne w 45 minutes Imad Asaad [facility] Start: 01-02-2023 End: 01-02-2023 ambulatory Anirudh Wang Other [employer] Other Start: 01-02-2023 Nursing evaluation o f patient and report Anirudh Wang [facility] Start: 12-25-2022 Telephone encounter Anirudh Wang [facility] Start: 12-25-2022 End: 12-26-[address] ANIRUDH WANG [facility] [employer] Other Start: 12-18-2022 End: 12-18-2022 ambulatory Anirudh Wang Other [employer] Other Start: 12-18-2022 Office outpatient visit 25 minutes Anirudh Wang [facility] Start: 12-13-2022 End: 12-13-2022 ambulatory Anirudh Wang Other [employer] Other Start: 12-13-2022 Telephone encounter Anirudh [facility] Start: 12-04-2022 End: 12-04-2022 ambulatory Anirudh Wang Other [employer] Other Start: 12-04-2022 Telephone encounter Anirudh WING [facility] Start: 12-02-2022 End: 12-03-[address] ANIRUDH WANG [facility] [employer] Other Start: 12-02-2022 Nursing evaluation o f patient and report Anirudh Wang [facility] Start: 12-02-2022 Office outpatient visit 15 minutes Anirudh Wang [facility] Start: 11-25-2022 End: 11-25-2022 Patient encounter procedure Graham VELAZQUEZ [facility] Start: 11-18-2022 End: 11-19-[address] GRAHAM VELAZQUEZ . Facility: Start: 10-31-2022 End: 10-31-2022 ambulatory Anirudh Wang Other [employer] Other Start: 10-31-2022 Nursing evaluation o f patient and report Anirudh Wang [facility] Start: 10-14-2022 End: 10-14-2022 Khari Bates Work Phone: [facility] Start: 10-08-2022 End: 10-08-2022 ambulatory Anirudh Wang Other [employer] Other Start: 10-08-2022 Telephone encounter [facility]udh [facility] Start: 09-30-2022 End: 09-30-2022 ambulatory Anirudh Wang Other [employer] Other Start: 09-30-2022 Nursing evaluation o f patient and report Anirudh Wang [facility] Start: 09-27-2022 Encounter for genera l adult medical examination without abnormal findings DR ANIRUDH WANG [facility] Start: 09-27-2022 End: 09-27-2022 ambulatory Anirudh Wang Other [employer] Other Start: 09-27-2022 Telephone encounter Anirudh WING [facility] Start: 09-20-2022 Patient encounter procedure Anirudh Wang [facility] Start: 09-20-2022 End: 09-21-[address] ANIRUDH WANG [facility] [employer] Other Start: 09-20-2022 End: 09-21-2022 Encounter for general adult medical examination without abnormal findings DR ANIRUDH WANG Facility: Start: 06-24-2022 End: 06-24-2022 Khari Bates Work Phone: [facility] Start: 03-04-2022 End: 03-04-2022 Khari Truong Jana Work Phone: [facility] Start: 01-07-2022 End: 01-07-2022 Khari Truong Jana Work Phone: [facility] [place] Start: 12-10-2021 End: 12-10-2021 Khari Truong Jana Work Phone: [facility] [place] Start: 11-21-2021 End: 11-21-2021 Office outpatient visit 25 minutes Avani Mcguire Work Phone: [facility] Start: 10-31-2021 End: 10-31-2021 Office outpatient visit 15 minutes Avani Mcguire Work Phone: [facility] Start: 10-15-2021 End: 10-15-2021 Office outpatient visit 15 minutes Khari Truong Jana Work Phone: [facility] [place] Start: 09-17-2021 Adult health examination Anirudh Wang Other [employer] Other Start: 06-06-2021 End: 06-06-2021 Office outpatient visit 15 minutes Khari Bates Work Phone: [facility] [place] Start: 03-07-2021 End: 03-07-2021 Office outpatient visit 25 minutes Khari Truong Jana Work Phone: [facility] [place] Start: 12-06-2020 End: 12-06-2020 Khari Truong Jana Work Phone: [facility] [place] Start: 09-06-2020 End: 09-06-2020 Office outpatient visit 15 minutes Khari Alexi Jana Work Phone: [facility] [place] Start: 07-12-2020 End: 07-12-2020 Khari Alexi Jana Work Phone: [facility] [place] Start: 01-05-2020 End: 01-05-2020 Khari Alexi Jana Work Phone: [facility] [place] Start: 10-06-2019 End: 10-06-2019 Office outpatient visit 15 minutes Khari Truong Jana Work Phone: [facility] [place] Start: 07-07-2019 End: 07-07-2019 Khari Truong Jana Work Phone: [facility] [place] Start: 04-14-2019 End: 04-14-2019 Khari Alexi Jana Work Phone: [facility] [place] Start: 02-17-2019 End: 02-17-2019 Khari Alexi Jana Work Phone: [facility] [place] Start: 01-06-2019 End: 01-06-2019 Khari Alexi Jana Work Phone: [facility] [place] Start: 10-07-2018 End: 10-07-2018 Khari Alexi Jana Work Phone: [facility] [place] Start: 08-05-2018 End: 08-05-2018 Khari Alexi Jana Work Phone: [facility] [place] Start: 04-15-2018 End: 04-15-2018 Khari K Jana Work Phone: [facility] [place] Start: 02-18-2018 End: 02-18-2018 Khari Alexi Jana Work Phone: [facility] [place] Start: 01-14-2018 End: 01-14-2018 Office outpatient visit 15 minutes Khari Truong Jana Work Phone: [facility] Start: 12-10-2017 End: 12-10-2017 Khari Truong Jana Work Phone: [facility] [place] Start: 11-19-2017 End: 11-19-2017 Khari Alexi Bates Work Phone: [facility] Start: 10-14-2017 End: 10-14-2017 Rowanmasha Sherman Work Phone: [facility] Start: 09-10-2017 End: 09-10-2017 Khari Truong Jana Work Phone: [facility] Start: 07-30-2017 End: 07-30-2017 Khari Bates Work Phone: [facility] Start: 06-23-2017 End: 06-23-2017 Rowanmasha Sherman Work Phone: [facility] Start: 05-13-2017 End: 05-13-2017 Office outpatient visit 15 minutes Khari Truong Jana Work Phone: [facility] Start: 04-02-2017 End: 04-02-2017 Khari Bates Work Phone: [facility] Start: 02-12-2017 End: 02-12-2017 Khari Bates Work Phone: [facility] Start: 01-08-2017 End: 01-08-2017 Khari Alexi Jana Work Phone: [facility] Start: 12-11-2016 End: 12-11-2016 Office outpatient new 45 minutes Khari Bates Work Phone: [facility] Procedures Date Procedure Procedure Detail Performing Clinician Start: 08-30-2024 Eylea 1mg Pre-filled Syringe Ashkan Al S hweiki Start: 08-30-2024 End: 08-30-2024 Eylea 1mg Pre-filled Syringe Ashkan Al S hweiki MD Start: 08-30-2024 End: 08-30-2024 Intravitreal njx pharmacologic agt spx Ashkan Pacheco Start: 06-07-2024 End: 06-07-2024 Dstrj loclzd lesion retina 1/> sess pc Ashkan Pacheco Start: 05-31-2024 Eylea 1mg Pre-filled Syringe Ashkan Polanco Start: 05-31-2024 End: 05-31-2024 Eylea 1mg Pre-filled Syringe Ashkan Polanco MD Start: 05-31-2024 End: 05-31-2024 Fluorescein angrph w/multiframe i&r uni/bi Ashkan Pacheco Start: 05-31-2024 Fundus Photos No Charge Ashkan Carrera i Start: 05-31-2024 End: 05-31-2024 Fundus Photos No Charge Bilateral Ashkan Pacheco MD Start: 05-31-2024 End: 05-31-2024 Intravitreal njx pharmacologic agt spx Ashkan Pacheco Start: 04-30-2024 End: 04-30-2024 Computerized ophthalmic imaging retina Ashkan Pacheco Start: 01-20-2024 End: 01-20-2024 Computerized ophthalmic imaging retina Ashkan Pacheco MD Start: 01-20-2024 End: 01-20-2024 Eylea 1mg Pre-filled Syringe Ashkan Polanco MD Start: 01-20-2024 End: 01-20-2024 Intravitreal njx pharmacologic agt spx Ashkan Pacheco MD Start: 10-21-2023 End: 10-21-2023 Aflibercept injection Ashkan Pacheco MD Start: 10-21-2023 End: 10-21-2023 Computerized ophthalmic imaging retina Ashkan Pacheco MD Start: 10-21-2023 End: 10-21-2023 Intravitreal njx pharmacologic agt spx Ashkan Pacheco MD Start: 08-26-2023 End: 08-26-2023 Computerized ophthalmic imaging retina Ashkan Pacheco MD Start: 08-26-2023 End: 08-26-2023 Eylea 1mg Pre-filled Syringe Ashkan Polanco MD Start: 08-26-2023 End: 08-26-2023 Fundus Photos No Charge Bilateral Ashkan Pacheco MD Start: 08-26-2023 End: 08-26-2023 Intravitreal njx pharmacologic agt spx Ashkan Pacheco MD Start: 08-21-2023 End: 08-21-2023 Computerized ophthalmic imaging retina Ashkan Pacheco MD Start: 07-29-2023 End: 07-29-2023 Bevacizumab injection Ashkan Pacheco MD Start: 07-29-2023 End: 07-29-2023 Computerized ophthalmic imaging retina Ashkan Pacheco MD Start: 07-29-2023 End: 07-29-2023 Intravitreal njx pharmacologic agt spx Ashkan Pacheco MD Start: 01-23-2023 Esophagogastroduodenoscopy DO Anirudh B all Work Phone: Start: 11-18-[address] GRAHAM VELAZQUEZ . Comment on above: Performed By: #### CBC #### [facility] [address] [place] [address] Dr. Haley Mays Start: 10-14-2022 End: 10-14-2022 Computerized ophthalmic imaging retina Ashkan Pacheco MD Start: 06-24-2022 End: 06-24-2022 Computerized ophthalmic imaging retina Ashkan Pacheco MD Start: 03-04-2022 End: 03-04-2022 Computerized ophthalmic imaging retina Ashkan Pacheco MD Start: 01-07-2022 End: 01-07-2022 Computerized ophthalmic imaging retina Ashkan Pacheco MD Start: 12-10-2021 End: 12-10-2021 Computerized ophthalmic imaging optic nerve Ashkan Pacheco MD Start: 12-10-2021 End: 12-10-2021 Eylea 1mg Pre-filled Syringe Ashkan Polanco MD Start: 12-10-2021 End: 12-10-2021 Intravitreal njx pharmacologic agt spx Ashkan Pacheco MD Start: 11-21-2021 End: 11-21-2021 Computerized ophthalmic imaging retina Ashkan Pacheco MD Start: 11-21-2021 End: 11-21-2021 Eylea Sample Drug Ashkan Pacheco MD Start: 11-21-2021 End: 11-21-2021 Intravitreal njx pharmacologic agt spx Ashkan Pacheco MD Start: 10-31-2021 End: 10-31-2021 Computerized ophthalmic imaging retina Ashkan Pacheco MD Start: 10-15-2021 End: 10-15-2021 Computerized ophthalmic imaging retina Ashkan Pacheco MD Start: 06-06-2021 End: 06-06-2021 Computerized ophthalmic imaging retina Ashkan Pacheco MD Start: 03-07-2021 End: 03-07-2021 Computerized ophthalmic imaging retina Ashkan Pacheco MD Start: 03-07-2021 End: 03-07-2021 Eylea 1mg Pre-filled Syringe Ashkan Polanco MD Start: 03-07-2021 End: 03-07-2021 Intravitreal njx pharmacologic agt spx Ashkan Pacheco MD Start: 12-06-2020 End: 12-06-2020 Computerized ophthalmic imaging retina Ashkan Pacheco MD Start: 09-06-2020 End: 09-06-2020 Computerized ophthalmic imaging retina Ashkan Pacheco MD Start: 09-06-2020 End: 09-06-2020 Eylea 1mg Pre-filled Syringe Ashkan Polanco MD Start: 09-06-2020 End: 09-06-2020 Intravitreal njx pharmacologic agt spx Ashkan Pacheco MD Start: 07-12-2020 End: 07-12-2020 Computerized ophthalmic imaging retina Ashkan Pacheco MD Start: 07-12-2020 End: 07-12-2020 Eylea 1mg Pre-filled Syringe Ashkan Polanco MD Start: 07-12-2020 End: 07-12-2020 Intravitreal njx pharmacologic agt spx Ashkan Pacheco MD Start: 01-05-2020 End: 01-05-2020 Computerized ophthalmic imaging retina Ashkan Pacheco MD Start: 10-06-2019 End: 10-06-2019 Computerized ophthalmic imaging retina Ashkan Pacheco MD Start: 07-07-2019 End: 07-07-2019 Aflibercept injection Ashkan Pacheco MD Start: 07-07-2019 End: 07-07-2019 Computerized ophthalmic imaging retina Ashkan Pacheco MD Start: 07-07-2019 End: 07-07-2019 Intravitreal njx pharmacologic agt spx Ashkan Igor Boswell MD Start: 04-14-2019 End: 04-14-2019 Computerized ophthalmic imaging retina Ashkan Pacheco MD Start: 02-17-2019 End: 02-17-2019 Computerized ophthalmic imaging retina Ashkan Pacheco MD Start: 01-06-2019 End: 01-06-2019 Aflibercept injection Ashkan Pacheco MD Start: 01-06-2019 End: 01-06-2019 Computerized ophthalmic imaging retina Ashkan Pacheco MD Start: 01-06-2019 End: 01-06-2019 Intravitreal njx pharmacologic agt spx Ashkan Pacheco MD Start: 10-07-2018 End: 10-07-2018 Computerized ophthalmic imaging retina Ashkan Pacheco MD Start: 08-05-2018 End: 08-05-2018 Computerized ophthalmic imaging retina Ashkan Pacheco MD Start: 04-15-2018 End: 04-15-2018 Aflibercept injection Ashkan Pacheco MD Start: 04-15-2018 End: 04-15-2018 Computerized ophthalmic imaging retina Ashkan Pacheco MD Start: 04-15-2018 End: 04-15-2018 Intravitreal njx pharmacologic agt spx Ashkan Pacheco MD Start: 02-18-2018 End: 02-18-2018 Aflibercept injection Ashkan Pacheco MD Start: 02-18-2018 End: 02-18-2018 Computerized ophthalmic imaging retina Ashkan Pacheco MD Start: 02-18-2018 End: 02-18-2018 Intravitreal njx pharmacologic agt spx Ashkan Pacheco MD Start: 01-14-2018 End: 01-14-2018 Aflibercept injection Ashkan Pacheco MD Start: 01-14-2018 End: 01-14-2018 Computerized ophthalmic imaging retina Ashkan Pacheco MD Start: 01-14-2018 End: 01-14-2018 Intravitreal njx pharmacologic agt spx Ashkan Pacheco MD Start: 12-10-2017 End: 12-10-2017 Bevacizumab injection Ashkan Pacheco MD Start: 12-10-2017 End: 12-10-2017 Computerized ophthalmic imaging retina Ashkan Pacheco MD Start: 12-10-2017 End: 12-10-2017 Intravitreal njx pharmacologic agt spx Ashkan Pacheco MD Start: 11-19-2017 End: 11-19-2017 Computerized ophthalmic imaging retina Ashkan Pacheco MD Start: 10-14-2017 End: 10-14-2017 Bevacizumab injection Ashkan Pacheco MD Start: 10-14-2017 End: 10-14-2017 Computerized ophthalmic imaging retina Ashkan Pacheco MD Start: 10-14-2017 End: 10-14-2017 Intravitreal njx pharmacologic agt spx Ashkan Pacheco MD Start: 09-10-2017 End: 09-10-2017 Computerized ophthalmic imaging retina Ashkan Pacheco MD Start: 09-10-2017 End: 09-10-2017 Intravitreal njx pharmacologic agt spx Ashkan Pacheco MD Start: 09-10-2017 End: 09-10-2017 Unclassified biologics Ashkan Pacheco MD Start: 07-30-2017 End: 07-30-2017 Bevacizumab injection Ashkan Pacheco MD Start: 07-30-2017 End: 07-30-2017 Computerized ophthalmic imaging retina Ashkan Pacheco MD Start: 07-30-2017 End: 07-30-2017 Intravitreal njx pharmacologic agt spx Ashkan Pacheco MD Start: 06-23-2017 End: 06-23-2017 Bevacizumab injection Ashkan Pacheco MD Start: 06-23-2017 End: 06-23-2017 Computerized ophthalmic imaging retina Ashkan Pacheco MD Start: 06-23-2017 End: 06-23-2017 Intravitreal njx pharmacologic agt spx Ashkan Pacheco MD Start: 05-13-2017 End: 05-13-2017 Computerized ophthalmic imaging retina Ashkan Pacheco MD Start: 05-13-2017 End: 05-13-2017 Intravitreal njx pharmacologic agt spx Ashkan Pacheco MD Start: 05-13-2017 End: 05-13-2017 Unclassified biologics Ashkan Pacheco MD Start: 04-02-2017 End: 04-02-2017 Bevacizumab injection Ashkan Pacheco MD Start: 04-02-2017 End: 04-02-2017 Computerized ophthalmic imaging retina Ashkan Pacheco MD Start: 04-02-2017 End: 04-02-2017 Intravitreal njx pharmacologic agt spx Ashkan Pacheco MD Start: 02-12-2017 End: 02-12-2017 Bevacizumab injection Ashkan Pacheco MD Start: 02-12-2017 End: 02-12-2017 Computerized ophthalmic imaging retina Ashkan Pacheco MD Start: 02-12-2017 End: 02-12-2017 Intravitreal njx pharmacologic agt spx Ashkan Pacheco MD Start: 01-08-2017 End: 01-08-2017 Bevacizumab injection Ashkan Pacheco MD Start: 01-08-2017 End: 01-08-2017 Computerized ophthalmic imaging retina Ashkan Pacheco MD Start: 01-08-2017 End: 01-08-2017 Intravitreal njx pharmacologic agt spx Ashkan Pacheco MD Start: 01-01-2017 Hyperlipidemia screening Anirudh Wang Other Start: 12-11-2016 End: 12-11-2016 Bevacizumab injection Ashkan Pacheco MD Start: 12-11-2016 End: 12-11-2016 Computerized ophthalmic imaging retina Ashkan Pacheco MD Start: 12-11-2016 End: 12-11-2016 Intravitreal njx pharmacologic agt spx Ashkan Pacheco MD Start: 09-08-2013 Laparoscopic cholecystostomy Graham ENGLAND Start: 09-08-2011 Colonoscopy Graham VELAZQUEZ Comment on above: 01/2023 Start: 09-08-2011 Esophagogastroduodenoscopy gastric outlet reduction Graham VELAZQUEZ Start: 09-08-1974 Repair of left inguinal hernia Graham GRAYSON Depression screening Jona Wang Other Depression screening Jona Wang Other History of operative procedure on knee Grahamhoa VELAZQUEZ Vasectomy Graham VELAZQUEZ Plan of Treatment Date Care Activity Detail Author Start: 12-06-2024 Marcelino Escobar 14 Weeks EYL OS(2-3) OCT [facility] Work Phone: Start: 01-01-2024 Patient referral [facility] Work Phone: Start: 01-23-2023 [facility] Start: 10-15-2021 Smoking cessation education Tobacco cessation counseling [facility] Start: 01-05-2020 Patient Education Health Infor mation for You: [facility]~ [facility] Work Phone: Start: 10-06-2019 Patient Education Health Infor mation for You: [facility] Work Phone: Start: 07-07-2019 Patient Education Health Infor mation for You: [facility]~ [facility] Work Phone: Patient Education Colon polyps [facility] Work Phone: Patient referral [facility] Work Phone: Renal function 1999 panel - Serum or Plasma [facility] Renal function 1999 panel - Serum or Plasma [facility] Renal function 1999 panel - Serum or Plasma [facility] Immunizations Immunization Date Immunization Notes Care Provider Aurora acosta NEGATED: Highlighted row has not occurred!11-20-2020 influenza virus vaccine, unspecified formulation Graham VELAZQUEZ [facility] NEGATED: Highlighted row has not occurred!11-22-2019 influenza virus vaccine, live, attenuated, for intranasal use Garham VELAZQUEZ [facility] Payers Date Payer Category Payer Self-pay 1961 Medicare [id number] 1948 Unknown [id number] 3 1948 Unknown [id number] 3 1948 Unknown [id number] [id number] 3 1948 Unknown [id number] [id number] 3 1948 Unknown [id number] [id number] 3 1948 Unknown [id number] [id number] 3 1948 Unknown [id number] [id number] 7 1948 Unknown [id number] 2.16.840.1.254785.3.579.2.72 7 1948 Unknown [id number] 2.16.840.1.573232.3.579.2.13 47 1948 Unknown [id number] 2.16.840.1.974849.3.579.2.13 47 1948 Unknown [id number] 2.16.840.1.809374.3.579.2.13 47 1948 Unknown [id number] 2.16.840.1.296415.3.579.2.13 47 1948 Unknown [id number] [id number] 47 Private Health Insurance [employer] Mcr PFFS N on Pt MEBJCPNP [id number] Unknown [id number] 1 Unknown [id number] [id number] 1 Unknown [id number] [id number] 1 Social History Date Type Detail Facility Sex Assigned At [facility] Start: 11-25-2022 End: 03-18-2024 Tobacco smoking status Never smoked tobacco (finding) [facility] Erika Tobacco smoking status Never [facility] Start: 1950 Sex Assigned At Male [facility] Start: 07-19-2024 End: 09-20-2024 Sex Male (finding) [facility] Start: 08-30-2024 Health-related behavior (observable entity) Caffeine Use Details [facility] NEGATED: Highlighted rowStart: 08-30-2024 Tobacco smoking status NHIS Unknown if ever smoked [facility] NEGATED: Highlighted row Alcohol intake Alcohol Use Details [facility] NEGATED: Highlighted rowStart: 08-30-2024 History of tobacco use Current non-smoker [facility] Medical Equipment Procedure Code Equipment Code Equipment Origin al Text Equipment Identifier Dates Repair, hernia, inguinal, with mesh Abdominal hernia surgical mesh, synthetic polymer, non-bioabsorbable ([id number] FDA Start: 04-10-2023 Goals Date Patient Goal Desired Activity /State Functional Status Date Assessment Result Facility 12-22-2023 Functional Status N/A [facility] 11-25-2022 Functional Status N/A [facility] Clinical Notes 09-20-2022 to 08-30-2024 Note Date & Type Note Facility 08-30-2024 Evaluation note Type assessment Trib rtnl vein occlu maribel, left eye, with macular edema impression Trib rtnl vein occlu maribel, left eye, with macular edema: H34.8320. Let [facility] Work Phone: [phone]) [phone] History of Present illness Narrative* Encounter Date Complaint History Of Prese nt Illness BRVO The 73 year old male presents for evaluation and treatment of BRVO in the left eye. Per patient when reading the eyes get watery and using refresh qhs OU. States no change with the distance vision since last visit. Denies any new floaters or flashing lights. Per patient has been getting some irritation out of the left eye that is on and off. Patient using ketorolac only in the mornings after his shower and forgets the rest of the day. BRVO with ME The 73 year old male presents for treatment of BRVO with ME in the left eye. Patient states that there are no changes in his vision over the last week. Patient states no new floaters or flashes of light. BRVO The 73 year old male presents for evaluation of BRVO in the left eye. Patient states vision stable, denies any new onset of flashes, floaters, or ocular pain. retinal vein occlusion The 73 ye ar old patient presents for evaluation of retinal vein occlusion in the left eye. He stated that since his last visit here he has had no changes in his vision. He is using artificial tears as needed. BRVO The 73 year old male presents for treatment of BRVO in the left eye. Patient states vision stable possible improvement. Denies any new onset of flashes, and floaters. Patient states increased in tearing. Patient using art tears gel at night OU. 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 Patient denies any vision changes since last visit. Patient states he began a moisturizing drop and ointment at bedtime for dry eye as suggested at last visit, with some relief. Patient is still unsure of medication names, did not bring list. BRVO The 72 year old patient presents for treatment of BRVO in the left eye. discomfort like a toothache The 72 year old male presents for evaluation of discomfort like a toothache in the left eye for about 1 week. Patient states flashes are intermittent and not new. Patient denies floaters in the left eye. Patient reports having high blood pressure recently and family doctor added 2 blood pressure medication yesterday and 1 anxiety medication, names unknown. Patient states that he is a nervous person and he always has been. Today automatic blood pressure measured 134/82. BRVO The 72 year old patient presents for evaluation of BRVO in the left eye. Patient reports stable vision. Patient denies ocular pain. Intermittent flashes of light while sitting in the dark per patient. Intermittent floaters. No complaints from the patient at this time . BRVO The 71 year old male presents for evaluation of BRVO with macular edema in the left eye. Patient denies eye pain, flashes and floaters. Reports stable vision since last appointment. 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 Stable Vision The patient repo rts Stable Vision in the right eye and left eye. No changes reported. Patient denies eye pain. Associated symptoms include: floaters and flashes. Stable Vision The patient repo rts Stable Vision in both eyes. No changes reported. Patient denies eye pain. Associated symptoms include: flashes and floaters. 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 Increased Vision The patient rep orts Increased Vision in both eyes since Cataract surgery. Patient also states vision is better than it has ever been Patient denies eye pain. No other changes reported. Associated symptoms include: floaters and flashes. BRVO The 71 year old male presents for evaluation of BRVO in both eyes. POSSIBLE Eylea injection OS BRVO The 71 year old male presents for evaluation of BRVO in the left eye. The patent reports stable vision since last exam 3 weeks ago. The patient reports dealing with some recent elevated blood pressure, his PCP doubled his benzapril and is monitoring him closely. decreased vision The 71 year old male presents for evaluation of decreased vision in the left eye. The symptom started about 2 weeks ago. He is scheduled for cataract surgery on 12-17-[address] Wilder. She wanted the patient to be seen today and treated if indicated prior to surgery. The patient denies floaters and flashes. reports gradual vision improveme nt The patient reports gradual vision improvement in the left eye. It started about 2 week(s) ago. In addition, the condition is associated with daily activities and chores. Associated symptoms include: flashes at night. possible CME OS per . The 71 year old male presents for evaluation of possible CME OS per . BRVO The 70 year old male presents for evaluation of BRVO in the left eye. Eylea Injection OS. decreased vision The patient rep orts decreased vision in the left eye. It started about 1 week(s) ago and onset was sudden. Associated symptoms include: flashes and floaters and eye pain/discomfort. BRVO The 70 year old male presents for evaluation of BRVO in the left eye. no vision changes The patient st ates no vision changes in both eyes, since last visit. It affects both near and distance vision. The symptom is all of the time. The condition is stable. In addition, the condition is associated with daily activities and chores. Associated symptoms include: flashes in the left eye. Patient states floaters in both eyes. BRVO The 70 year old male presents for evaluation of BRVO in the left eye. The patient reports a slight decrease in vision since last exam 3 months ago. The patient denies eye pain and flashes. BRVO The 70 year old male presents for evaluation of BRVO in the left eye. The patient reports stable blurry vision in the left eye since last exam 3 months ago. The patient denies eye pain and flashes. Stable vision The patient stat es his vision has been stable sense his appointment a month ago. It occurs constantly. The condition is unchanged. The condition is associated with daily activities and chores. The patient denies eye pain and flashes. The patient has no concerns. 2 mo fu due to BRVO w/ mac edema The 69 year old male is present for his 2 mo fu due to BRVO w/ mac edema OS. Possible Eylea OS. BRVO The 69 year old male presents for evaluation of BRVO in the left eye. The patient reports some decreased vision since last visit 7 months ago. He reports the cataract has progressed and he is plaaning to schedule cataract surgery in the near future. The patient denies eye pain and flashes. BRVO The 69 year old male presents for BRVO in the left eye. stable vision The patient repo rts stable vision in the left eye since last visit about 3 month(s) ago. It occurs constantly. It affects both near and distance vision. In addition, the condition is associated with daily activities and chores. Patient reports intermittent floaters not affecting the vision. Patient denies flashes. Patient reports no vision changes in the right eye. BRVO The 68 year old male presents for BRVO with edema in the left eye. stable vision The patient repo rts stable vision in the left eye since last visit about 3 month(s) ago. It occurs constantly. It affects both near and distance vision. In addition, the condition is associated with daily activities and chores. Patient reports intermittent floaters and flashes in left eye. Patient reports no vision changes in the right eye. BRVO The 68 year old male presents for BRVO with edema in the left eye. stable vision The patient repo rts stable vision in the left eye since last visit about 3 month(s) ago. It occurs constantly. It affects both near and distance vision. In addition, the condition is associated with daily activities and chores. Patient denies floaters and flashes. patient reports no vision changes in the right eye. BRVO The 68 year old male presents for evaluation of BRVO in the left eye. increased The patient stat es his vision has increased in both eyes. Patient denies flashes and eye pain. increase in vision The patient r eports an increase in vision in both eyes since he got new glasses 10 days ago. The onset was gradual. It affects both near and far vision. The symptom is constant. The condition is mild. In addition, the condition is associated with daily activity and chores. Patient denies flashes and floaters. BRVO with edema The 68 year old male presents for a BRVO with edema in the left eye. decreased vision The patient rep orts decreased vision in the left eye. It started about 3 days ago. It occurs all the time. The onset was sudden. It affects both near and far vision. The condition is severe. The condition is described as blurring. In addition, the condition is associated with daily activity and chores and reading. Patient denies floaters and flashes. BRVO The 68 year old male presents for BRVO with edema in the left eye. denies vision changes The patien t denies vision changes in both eyes since his last exam 2 months ago. Patient denies flashes, floaters. vein occlusion The 67 year old male presents for evaluation of vein occlusion in the left eye. decrease in vision The patient r eports a decrease in vision in the left eye. It started about 1 week ago. The onset was gradual. It affects both near and far vision. The symptom is constant. The condition is mild. The condition is described as blurring. In addition, the condition is associated with daily activity and chores. Patient denies flashes and floaters. Patient reports no visual changes in the right eye. vein occlusion The 67 year old male presents for evaluation of vein occlusion with edema in the left eye. denies vision change The patient denies vision change in the right eye. It started about 2 months ago. It affects both near and far vision. The symptom is constant. It occurs all the time. The condition is stable. The patient denies flashes, eye pain and floaters. burry vision The patient comp lains of burry vision in the left eye. It started about 2 weeks ago . The onset was gradual. It affects both near and far vision. The symptom is frequent. It occurs persistently. The condition is mild. The patient denies flashes, eye pain, floaters. vein occlusion The 67 year old male presents for evaluation of vein occlusion in the left eye. stable vision The patient repo rts stable vision in both eyes since last exam 5 weeks ago.The symptom is constant. In addition, the condition is associated with daily activity and chores. The patient denies flashes, eye pain. vein occlusion The 67 year old male presents for evaluation of vein occlusion in the left eye. denies vision changes The patien t denies vision changes in the right and left eye since last visit about 1 month ago. The patient denies flashes, eye pain. vein occlusion The 67 year old male presents for evaluation of vein occlusion in the left eye. denies vision changes The patien t complains of denies vision changes in the right eye. It started about 1 month ago. It affects both near and far vision. The symptom is constant. It occurs all the time. The condition is stable. In addition, the condition is associated with daily activity and chores. The patient denies floaters and flashes. blurry vision The patient comp lains of blurry vision in the left eye. It started about 5 days ago . The onset was gradual. It affects both near and far vision. The symptom is constant. It occurs all the time. The condition is mild. The condition is described as discomfort. In addition, the condition is associated with daily activity and chores. The patient denies floaters, flashes. vein occlusion The 67 year old male presents for evaluation of vein occlusion in the left eye. new medication Patient is now t aking Benazepril. 1x a day. denies vision change The patient denies vision change in both eyes since his last exam 5 weeks ago. The patient denies eye pain, flashes, floaters. BRVO The 67 year old male presents for evaluation of BRVO in the left eye. no visual changes The patient no niyah of no visual changes in his right eye since his last exam.Blood pressure 155/79. blurry vision The patient note s of blurry vision, which started 4 days ago. States it has worsened over the past 4 days. Patient states he has been having trouble reading with his left eye as well, never had that issue before. The patient denies eye pain, flashes, floaters. BRVO The 66 year old male presents for evaluation of BRVO in the left eye. reports stable vision The patien t reports stable vision in both eyes since his last visit 6 weeks ago. The patient denies flashes, floaters. BRVO The 66 year old male presents for evaluation of BRVO in the left eye. vein occlusion The 66 year old male presents for evaluation of vein occlusion in the left eye. distorted vision The patient com plains intermittent distortion with his right eye visio. Patient states that he will have problems seeing the entirity of a sentence or the entire time on the clock. For example, if it is 1:30, he will only see the 30 portion. He states this has happened a few times in the past. The patient denies flashes and floaters. slight decrease in vision The maciel benoitjanine complains of a slight decrease in vision in the left eye. He states he notices this about 5 weeks after his injection, and it is a gradual decerase. It affects both near and far vision. The patient denies flashes, floaters. vision changes The 66 year old male emergently reports vision changes int he left eye. S/P Avastin in the left eye for BRVO with edema (last injection was (05/13/17). reports no visual changes The maciel cagle reports no visual changes in the right eye since his last visit 6 weeks ago. It affects both near and far vision. The symptom is constant. The condition is stable. In addition, the condition is associated with daily activity and chores. The patient denies flashes and floaters. blurry vision The patient repo rts blurry vision in the left eye. It started about 1 day ago . The onset was sudden. It affects both near and far vision. The symptom is constant. The condition is moderate. In addition, the condition is associated with daily activity and chores. The patient denies flashes, floaters. denies any vision changes The maciel benoitjanine denies any vision changes in the right eye. small black floater, with no vision changes The patient reports a small black floater, with no vision changes in the left eye, 1 week ago, that has subsided. The onset was sudden. It affects peripheral vision. The symptom was frequent. It occurs with no pattern. vein occlusion The 66 year old male presents for evaluation of vein occlusion in the left eye. stable vision The patient repo rts stable vision in the right eye and left eye. It affects both near and far vision. The symptom is constant. The patient denies flashes and floaters. blurry vision The patient comp lains of blurry vision in the left eye. It started about 10 days ago. The onset was gradual. It affects both near and far vision. The symptom is constant. The condition is moderate. The condition is described as blurring. The patient denies flashes, floaters. BRVO with macular edema The 66 y ear old male presents for evaluation of BRVO with macular edema in the left eye. reports no visual changes The maciel cagle reports no visual changes in the right eye and left eye since his last visit 5 weeks ago. It affects both near and far vision. The symptom is constant. The condition is stable. In addition, the condition is associated with daily activity and chores. The patient denies flashes, floaters. BRVO with macular edema The 66 y ear old male presents for evaluation of a BRVO with macular edema in the left eye. red dots The patientrepor ts red dots in the left eye. It started about 2 weeks ago . The onset was sudden. It affects near vision. The symptom is constant. The condition is mild. In addition, the condition is associated with reading against a white background. Patient reports he notices the red dots when he covers the right eye and quickly opens it to read. BRVO with macular edema The 66 y ear old male presents for evaluation of a BRVO with macular edema in the left eye. blurriness in vision The patient reports blurriness in vision in the left eye. It started about 2 months ago . The onset was gradual. It affects distance vision. The symptom is constant. The condition is moderate. In addition, the condition is associated with driving. flashes The patient repo rts flashes in the right eye and left eye it started last night. The onset was sudden. Vision is not affected. The symptom is constant. The condition is mild. In addition, the condition is noticeable in dark settings. Patient reported the flashes happened 3-4 times last night while watching the baseball game. referred by Dr. Andrei ruby for a retinal occlusion The 66 year old male referred by Dr. Zayas for a retinal occlusion in the left eye. [facility] Work Phone: [phone] Instructions* Date Instruction Additional Infor naveen Impression/Plan Related to Trib rtnl vein occlusion, left eye, with macular edema Impression/Plan Related to Catar act, Nuclear Sclerosis OS Keep next appt Related to Trib rtnl vein occlusion, left eye, with macular edema Impression/Plan Related to Trib rtnl vein occlusion, left eye, with macular edema Impression/Plan Related to Catar act, Nuclear Sclerosis OS Impression/Plan Related to Pseud ophakia Impression/Plan Related to Trib rtnl vein occlusion, left eye, with macular edema Impression/Plan Related to Hyper tension Impression/Plan Related to Ptosi s, bilateral Impression/Plan Related to Trib rtnl vein occlusion, left eye, with macular edema Impression/Plan Related to Catar act, Nuclear Sclerosis OS Impression/Plan Related to Pseud ophakia Impression/Plan Related to Hyper tension Impression/Plan Related to Trib rtnl vein occlusion, left eye, with macular edema Impression/Plan Related to Trib rtnl vein occlusion, left eye, with macular edema Impression/Plan Related to Trib rtnl vein occlusion, left eye, with macular edema Return in Related to Dry e yes, bilateral Impression/Plan Related to Trib rtnl vein occlusion, left eye, with macular edema Impression/Plan Related to Prese nce of intraocular lens Impression/Plan Related to Dry e yes, bilateral Impression/Plan Related to Prese nce of intraocular lens Impression/Plan Related to Trib rtnl vein occlusion, left eye, with macular edema Return in Related to Trib rtnl vein occlusion, left eye, with macular edema Impression/Plan Related to Hyper tensive retinopathy of both eyes Impression/Plan Related to Prese nce of intraocular lens Impression/Plan Related to Trib rtnl vein occlusion, left eye, with macular edema Return in Related to Trib rtnl vein occlusion, left eye, with macular edema Impression/Plan Related to Hyper tensive retinopathy of both eyes Jun- Impression/Plan Related to Prese nce of intraocular lens Impression/Plan Related to Retin al edema Impression/Plan Related to Trib rtnl vein occlusion, left eye, with macular edema Return in Related to Trib rtnl vein occlusion, left eye, with macular edema Impression/Plan Related to Hyper tensive retinopathy of both eyes Impression/Plan Related to Prese nce of intraocular lens Impression/Plan Related to Trib rtnl vein occlusion, left eye, with macular edema Return in Related to Trib rtnl vein occlusion, left eye, with macular edema Impression/Plan Related to Hyper tensive retinopathy of both eyes Impression/Plan Related to Prese nce of intraocular lens Impression/Plan Related to Retin al edema Impression/Plan Related to Trib rtnl vein occlusion, left eye, with macular edema Return in 1 month wi Khari Bates MD for follow up, OCT, possible Eylea OS Related to Trib rtnl vein occlusion, left eye, with macular edema Impression/Plan Related to Trib rtnl vein occlusion, left eye, with macular edema Impression/Plan Related to Retin al edema Impression/Plan Related to Age-r elated nuclear cataract, left eye Return in Related to Trib rtnl vein occlusion, left eye, with macular edema Impression/Plan Related to Age-r elated nuclear cataract, left eye Impression/Plan Related to Retin al edema Impression/Plan Related to Trib rtnl vein occlusion, left eye, with macular edema Impression/Plan Related to Prese nce of intraocular lens Impression/Plan Related to Hyper tensive retinopathy of both eyes Return in 1 Related to Trib rtnl vein occlusion, left eye, with macular edema Impression/Plan Related to Pucke ring of macula, right eye Impression/Plan Related to Hyper tensive retinopathy of both eyes Impression/Plan Related to Trib rtnl vein occlusion, left eye, with macular edema Impression/Plan Related to Essen tial (primary) hypertension Impression/Plan Related to Age-r elated nuclear cataract, bilateral Return in Related to Trib rtnl vein occlusion, left eye, with macular edema Impression/Plan Related to Essen tial (primary) hypertension Impression/Plan Related to Age-r elated nuclear cataract, bilateral Impression/Plan Related to Pucke ring of macula, right eye Impression/Plan Related to Trib rtnl vein occlusion, left eye, with macular edema Return in Related to Trib rtnl vein occlusion, left eye, with macular edema Impression/Plan Related to Essen tial (primary) hypertension Impression/Plan Related to Age-r elated nuclear cataract, bilateral Impression/Plan Related to Pucke ring of macula, right eye Impression/Plan Related to Trib rtnl vein occlusion, left eye, with macular edema Return in Related to Trib rtnl vein occlusion, left eye, with macular edema Impression/Plan Related to Trib rtnl vein occlusion, left eye, with macular edema Impression/Plan Related to Retin al edema Impression/Plan Related to Retin al hemorrhage, left eye Impression/Plan Related to Pucke ring of macula, right eye Impression/Plan Related to Age-r elated nuclear cataract, bilateral Impression/Plan Related to Essen tial (primary) hypertension Return in 3 months w esther Bates MD for follow up and OCT. The need for add'l tx TBD Related to Trib rtnl vein occlusion, left eye, with macular edema Impression/Plan Related to Retin al edema Impression/Plan Related to Retin al hemorrhage, left eye Impression/Plan Related to Trib rtnl vein occlusion, left eye, with macular edema Impression/Plan Related to Essen tial (primary) hypertension Impression/Plan Related to Age-r elated nuclear cataract, bilateral Impression/Plan Related to Pucke ring of macula, right eye Impression/Plan Related to Trib rtnl vein occlusion, left eye, with macular edema Impression/Plan Related to Age-r elated nuclear cataract, bilateral Impression/Plan Related to Essen tial (primary) hypertension Impression/Plan Related to Trib rtnl vein occlusion, left eye, with macular edema Impression/Plan Related to Pucke ring of macula, right eye Impression/Plan Related to Retin al edema Return in 7-8 week(s ) with Khari Bates MD for follow up, OCT, possible Eylea OS Related to Trib rtnl vein occlusion, left eye, with macular edema Impression/Plan Related to Vitre ous degeneration, bilateral Impression/Plan Related to Age-r elated nuclear cataract, bilateral Impression/Plan Related to Essen tial (primary) hypertension Impression/Plan Related to Trib rtnl vein occlusion, left eye, with macular edema Impression/Plan Related to Pucke ring of macula, right eye Return in 6 months w esther Bates MD for follow up exam and OCT. Related to Trib rtnl vein occlusion, left eye, with macular edema Impression/Plan Related to Age-r elated nuclear cataract, bilateral Impression/Plan Related to Essen tial (primary) hypertension Impression/Plan Related to Vitre ous degeneration, bilateral Impression/Plan Related to Pucke ring of macula, right eye Impression/Plan Related to Trib rtnl vein occlusion, left eye, with macular edema Return in 3 months w esther Bates MD for follow up exam and OCT, poss Eylea OS Related to Trib rtnl vein occlusion, left eye, with macular edema Impression/Plan Related to Essen tial (primary) hypertension Impression/Plan Related to Age-r elated nuclear cataract, bilateral Impression/Plan Related to Vitre ous degeneration, bilateral Impression/Plan Related to Pucke ring of macula, right eye Impression/Plan Related to Trib rtnl vein occlusion, left eye, with macular edema Return in 3 months w esther Bates MD for follow up, OCT, possible Eylea OS Related to Trib rtnl vein occlusion, left eye, with macular edema Impression/Plan Related to Essen tial (primary) hypertension Impression/Plan Related to Age-r elated nuclear cataract, bilateral Impression/Plan Related to Pucke ring of macula, right eye Impression/Plan Related to Trib rtnl vein occlusion, left eye, with macular edema Return in 3 months w esther Bates MD for follow up and OCT Related to Trib rtnl vein occlusion, left eye, with macular edema Impression/Plan Related to Trib rtnl vein occlusion, left eye, with macular edema Impression/Plan Related to Pucke ring of macula, right eye Impression/Plan Related to Vitre ous degeneration, bilateral Impression/Plan Related to Age-r elated nuclear cataract, bilateral Impression/Plan Related to Essen tial (primary) hypertension Return in 6-[address] Bates for follow up exam and OCT. The need for additional EYL OS will be determined at that time. Related to Trib rtnl vein occlusion, left eye, with macular edema Impression/Plan Related to Pucke ring of macula, right eye Impression/Plan Related to Vitre ous degeneration, bilateral Impression/Plan Related to Age-r elated nuclear cataract, bilateral Impression/Plan Related to Essen tial (primary) hypertension Impression/Plan Related to Trib rtnl vein occlusion, left eye, with macular edema Return in 8-[address] Bates for FU/OCT/possible EYL OS. Related to Trib rtnl vein occlusion, left eye, with macular edema Impression/Plan Related to Essen tial (primary) hypertension Impression/Plan Related to Age-r elated nuclear cataract, bilateral Impression/Plan Related to Vitre ous degeneration, bilateral Impression/Plan Related to Pucke ring of macula, right eye Impression/Plan Related to Trib rtnl vein occlusion, left eye, with macular edema Return in [address] Bates for follow up exam and OCT. Related to Trib rtnl vein occlusion, left eye, with macular edema Impression/Plan Related to Essen tial (primary) hypertension Impression/Plan Related to Age-r elated nuclear cataract, bilateral Impression/Plan Related to Vitre ous degeneration, bilateral Impression/Plan Related to Pucke ring of macula, right eye Impression/Plan Related to Trib rtnl vein occlusion, left eye, with macular edema Return in [address] Bates for FU/OCT/possible EYLEA. Related to Trib rtnl vein occlusion, left eye, with macular edema Impression/Plan Related to Age-r elated nuclear cataract, bilateral Impression/Plan Related to Vitre ous degeneration, bilateral Impression/Plan Related to Pucke ring of macula, right eye Impression/Plan Related to Trib rtnl vein occlusion, left eye, with macular edema Impression/Plan Related to Essen tial (primary) hypertension Return in [address] Bates for follow up exam with OCT and possible Eylea OS. 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 Continued anti-VEGF treatment was recommended to reduce the macular edema and hopefully improve vision. Recommend extending interval to 3 months. Risks, benefits, and alternatives were reviewed. The patient chose to continue treatment and received an intravitreal injection of Eylea today. The patient tolerated the procedure well and has been instructed to call immediately with severe pain, non-watery discharge or visual changes. The ocular and systemic benefits of blood pressure control were rediscussed as well as follow up compliance from a retinal standpoint and with the PCP. Appropriate follow up with primary eye childcare attendant was recommended. Related to Trib rtnl vein occlusion, left eye, with macular edema Impression/Plan - RI GHT: Stable Macular Pucker with pseudohole was noted on examination today and discussed with the patient. The pucker is not inducing vision loss or distortion that is severe enough to warrant surgical risk. I have counseled for continued observation at the current level of vision, and the patient will l let us know if there is any progressive vision loss or worsening metamorphopsia. 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, right eye Impression/Plan - Th ere is no evidence of a retinal tear, break or detachment. Related to Vitreous degeneration, bilateral Impression/Plan - Re gular follow up appointments with the patient's comprehensive eye doctor were recommended to monitor the patients cataract for progression. Referral for surgical intervention is not indicated at this time. Related to Age-related nuclear cataract, bilateral Follow up - Return i n [address] Bates for follow up exam with OCT and possible Eylea OS. Related to Trib rtnl vein occlusion, left eye, with macular edema Return in [address] Bates for follow up exam with OCT and possible Eylea. 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 Referral for surgical intervention is not indicated at this time. Related to Age-related nuclear cataract, bilateral Impression/Plan - LE FT: Branch Retinal Vein Occlusion with macular edema was noted on examination today and explained to the patient. Continued anti-VEGF treatment was recommended to reduce the macular edema and hopefully improve vision. Risks, benefits, and alternatives were reviewed. The patient chose to continue treatment and received an intravitreal injection of Eylea today. The patient tolerated the procedure well and has been instructed to call immediately with severe pain, non-watery discharge or visual changes. The ocular and systemic benefits of blood pressure control were rediscussed as well as follow up compliance from a retinal standpoint and with the PCP. Appropriate follow up with primary eye childcare attendant was recommended. Related to Trib rtnl vein occlusion, left eye, with macular edema Impression/Plan - Th ere is no evidence of a retinal tear, break or detachment. Related to Vitreous degeneration, bilateral Impression/Plan - RI GHT: Stable Macular Pucker with pseudohole was noted on examination today and discussed with the patient. The pucker is not inducing vision loss or distortion that is severe enough to warrant surgical risk. I have counseled for continued observation at the current level of vision, and the patient will l let us know if there is any progressive vision loss or worsening metamorphopsia. 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, right eye Follow up - Return i n [address] Bates for follow up exam with OCT and possible Eylea. 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 Bates for follow up exam with OCT and possible Eylea OS (pending authorization). 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 Referral for surgical intervention is not indicated at this time. Related to Age-related nuclear cataract, bilateral Impression/Plan - RI GHT: Stable Macular Pucker with pseudohole was noted on examination today and discussed with the patient. The pucker is not inducing vision loss or distortion that is severe enough to warrant surgical risk. I have counseled for continued observation at the current level of vision, and the patient will l let us know if there is any progressive vision loss or worsening metamorphopsia. 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, right eye Impression/Plan - LE FT: Branch Retinal Vein Occlusion with mild macular edema was noted on examination today. Treatment options were reviewed; the pros and cons of the different anti-VEGF medications were discussed. Risks of intravitreal injections and medications were reviewed. Because of the efficacy of Eylea with increased dosing intervals, a switch to Eylea was suggested for his next visit. At the patient's request, we proceeded with an intravitreal Avastin injection at today's visit and it was completed without complication. The patient was instructed to call if any post-operative problems developed such as eye pain, vision loss, or any non-watery discharge from the treated eye. 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 Bates for follow up exam with OCT and possible Eylea OS (pending authorization). Related to Trib rtnl vein occlusion, left eye, with macular edema Impression/Plan - Po sterior vitreous detachment was noted on examination today and explained to the patient. There is no evidence of a retinal tear, break or detachment. Patient instructed to call the office immediately if any symptoms noted. Related to Vitreous degeneration, bilateral Return in 2 months w esther Bates for follow up exam and OCT. The need for additional Avastin OS will be determined at that time. Related to Trib rtnl vein occlusion, left eye, with macular edema Follow up - Return i n [address] Bates for follow up exam and OCT. The need for additional Avastin OS will be determined at that time. 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 Referral for surgical intervention is not indicated at this time. Related to Age-related nuclear cataract, bilateral Impression/Plan - Po sterior vitreous detachment was noted on examination today and explained to the patient. There is no evidence of a retinal tear, break or detachment. Patient instructed to call the office immediately if any symptoms noted. Related to Vitreous degeneration, bilateral Impression/Plan - RI GHT: Stable Macular Pucker was noted on examination today and discussed with the patient. The pucker is not inducing vision loss or distortion that is severe enough to warrant surgical risk. I have counseled for continued observation at the current level of vision, and the patient will l let us know if there is any progressive vision loss or worsening metamorphopsia. 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, right eye Impression/Plan - LE FT: Branch Retinal Vein Occlusion with mild macular edema was noted on examination today. The stable exam findings were discussed with the patient. The options of continued treatment with increasing interval between injections vs holding treatment with careful monitored follow up visits were rediscussed. The patient has done well with the current treatment regimen but would like to hold treatment and follow closely. The patient has been instructed to call immediately with any vision changes. The importance of blood pressure control was discussed today. The patient was advised of both ocular and systemic benefits of blood pressure control as well as regular follow up compliance with the PCP. The patient was instructed to return to their referring physician for further evaluation of their current prescription. It is reasonable from a retinal standpoint to update the prescription should they find that a change would improve the patient's vision. 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 Referral for surgical intervention is not indicated at this time. Related to Age-related nuclear cataract, bilateral Impression/Plan - Th ere is no evidence of a retinal tear, break, or detachment. Related to Vitreous degeneration, bilateral Impression/Plan - RI GHT EYE: Stable Macular Pucker was noted on examination today and discussed with the patient. The pucker is not inducing vision loss or distortion that is severe enough to warrant surgical risk. I have counseled for continued observation at the current level of vision, and the patient will l let us know if there is any progressive vision loss or worsening metamorphopsia. 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 Based on today's exam and interpretation of testing, antiVEGF treatment was recommended to reduce the macular edema and hopefully improve vision. Risks, benefits, and alternatives were reviewed. The patient wishes to continue treatment and receive an intravitreal injection of Avastin today. The patient tolerated the procedure well and has been instructed to call immediately with severe pain or visual changes. The need for ongoing treatment will be determined at future visits. The ocular and systemic benefits of blood pressure control were rediscussed as well as follow up compliance from a retinal standpoint and with the PCP. 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 Bates for follow up exam with OCT and possible Avastin. Return in [address] Bates for follow up exam with OCT and possible Avastin. 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 Bates for follow up exam with OCT and possible Avastin. 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 Referral for surgical intervention is not indicated at this time. Related to Age-related nuclear cataract, bilateral Impression/Plan - Th ere is no evidence of a retinal tear, break, or detachment. Related to Vitreous degeneration, bilateral Impression/Plan - RI GHT EYE: Stable Macular Pucker was noted on examination today and discussed with the patient. The pucker is not inducing vision loss or distortion that is severe enough to warrant surgical risk. I have counseled for continued observation at the current level of vision, and the patient will l let us know if there is any progressive vision loss or worsening metamorphopsia. 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 Continued anti-VEGF treatment was recommended to reduce the macular edema and hopefully improve vision. Risks, benefits, and alternatives were reviewed. The off label status of Avastin was discussed. The use of a compounding pharmacy was reviewed with the patient. The patient chose to continue treatment and received an intravitreal injection of Avastin today. The patient tolerated the procedure well and has been instructed to call immediately with severe pain, non-watery discharge or visual changes. The ocular and systemic benefits of blood pressure control were discussed as well as follow up compliance from a retinal standpoint and with the PCP. Appropriate follow up with primary eye childcare attendant was recommended. 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 The pucker is not inducing vision loss or distortion that is severe enough to warrant surgical risk. I have counseled for observation at the current level of vision, and the patient will l let us know if there is any progressive vision loss or worsening metamorphopsia. 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 Patient feels his vision has declined therefore we will continue antiVEGF treatment today instead of next week. Risks, benefits, and alternatives were reviewed. The patient wishes to continue treatment and receive an intravitreal injection of Avastin today. We will continue dosing intervals at 4-6 weeks. The patient tolerated the procedure well and has been instructed to call immediately with severe pain or visual changes. The need for ongoing treatment will be determined at future visits. The ocular and systemic benefits of blood pressure control were rediscussed as well as follow up compliance from a retinal standpoint and with the PCP. 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 Referral for surgical intervention is not indicated at this time. Related to Age-related nuclear cataract, bilateral Impression/Plan - Po sterior vitreous detachment was noted on examination today and explained to the patient. There is no evidence of a retinal tear, break, or detachment. Patient instructed to call the office immediately if any symptoms noted. Related to Vitreous degeneration, bilateral Follow up - Return i n 4-[address] Bates for follow up exam, OCT and possible Avastin. Oct Impression/Plan - Re gular follow up appointments with the patient's comprehensive eye doctor were recommended to monitor the patients cataract for progression. Referral for surgical intervention is not indicated at this time. Related to Age-related nuclear cataract, bilateral Jun- Impression/Plan - Po sterior vitreous detachment was noted on examination today and explained to the patient. There is no evidence of a retinal tear, break, or detachment. Patient instructed to call the office immediately if any symptoms noted. Related to Vitreous degeneration, bilateral Jun- Impression/Plan - RI GHT EYE: Macular Pucker was noted on examination today and explained to the patient. The pucker is not inducing vision loss or distortion that is severe enough to warrant surgical risk. I have counseled for observation at the current level of vision, and the patient will l let us know if there is any progressive vision loss or worsening metamorphopsia. 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 Improving s/p Avastin - see plan #1. Related to Retinal hemorrhage, left eye Impression/Plan - Br anch Retinal Vein Occlusion with mild macular edema was noted on examination today and explained to the patient. Patient feels his vision has declined therefore we will continue antiVEGF treatment today instead of next week. Risks, benefits, and alternatives were reviewed. The patient wishes to continue treatment and receive an intravitreal injection of Avastin today. We will continue dosing intervals at 4-6 weeks. The patient tolerated the procedure well and has been instructed to call immediately with severe pain or visual changes. The need for ongoing treatment will be determined at future visits. The ocular and systemic benefits of blood pressure control were rediscussed as well as follow up compliance from a retinal standpoint and with the PCP. 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 Bates for INJ AVN OS w/OCT. 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 Improving s/p Avastin - see plan #1. Related to Retinal hemorrhage, left eye Impression/Plan - RI GHT EYE: Macular Pucker was noted on examination today and explained to the patient. The pucker is not inducing vision loss or distortion that is severe enough to warrant surgical risk. I have counseled for observation at the current level of vision, and the patient will l let us know if there is any progressive vision loss or worsening metamorphopsia. 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 Referral for surgical intervention is not indicated at this time. Related to Age-related nuclear cataract, bilateral Impression/Plan - Po sterior vitreous detachment was noted on examination today and explained to the patient. There is no evidence of a retinal tear, break, or detachment. Patient instructed to call the office immediately if any symptoms noted. Related to Vitreous degeneration, bilateral Impression/Plan - LE FT EYE: Branch Retinal Vein Occlusion with persistent macular edema was noted on examination today and explained to the patient. Continued antiVEGF treatment was recommended to reduce the macular edema and hopefully improve vision. Risks, benefits, and alternatives were reviewed. The off label status of Avastin was discussed. The use of a compounding pharmacy was reviewed with the patient. The patient chose to continue treatment and received an intravitreal injection of Avastin today. The patient tolerated the procedure well and has been instructed to call immediately with severe pain, non-watery discharge or visual changes. The ocular and systemic benefits of blood pressure control were rediscussed as well as follow up compliance from a retinal standpoint and with the PCP. 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 Bates for INJ AVN OS w/OCT. 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 Continued antiVEGF treatment was recommended to reduce the macular edema and hopefully improve vision. Risks, benefits, and alternatives were reviewed. The off label status of Avastin was discussed. The use of a compounding pharmacy was reviewed with the patient. The patient chose to continue treatment and received an intravitreal injection of Avastin today. The patient tolerated the procedure well and has been instructed to call immediately with severe pain, non-watery discharge or visual changes. The ocular and systemic benefits of blood pressure control were rediscussed as well as follow up compliance from a retinal standpoint and with the PCP. Appropriate follow up with primary eye childcare attendant was recommended. 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 Referral for surgical intervention is not indicated at this time. Related to Age-related nuclear cataract, bilateral Impression/Plan - Po sterior vitreous detachment was noted on examination today and explained to the patient. There is no evidence of a retinal tear, break, or detachment. Patient instructed to call the office immediately if any symptoms noted. Related to Vitreous degeneration, bilateral Follow up - Return i n 6-8 weeks for FU, OCT, poss AVN OS. 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 The pucker is not inducing vision loss or distortion that is severe enough to warrant surgical risk. I have counseled for observation at the current level of vision, and the patient will l let us know if there is any progressive vision loss or worsening metamorphopsia. 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 Related to Retinal hemorrhage, left eye - 1 mo for INJ AVN OS w/OCT Rela denis to Tributary (branch) retinal vein occlusion, left eye, with macular edema Return in [address] Bates for follow up exam with OCT and possible Avastin OS. 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 Initial antiVEGF treatment was recommended to reduce the macular edema and hopefully improve vision. Risks, benefits, and alternatives were discussed. The off label status of Avastin was discussed. The use of a compounding pharmacy was reviewed with the patient. The patient chose to proceed with treatment and received an intravitreal injection of Avastin today. The patient tolerated the procedure well and has been instructed to call immediately with severe pain or visual changes. The ocular and systemic benefits of blood pressure control were discussed as well as follow up compliance from a retinal standpoint and with the PCP. Appropriate follow up with primary eye childcare attendant was recommended. 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 Bates for follow up exam with OCT and possible Avastin OS. 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 Related to Retinal hemorrhage, left eye Impression/Plan - Re gular follow up appointments with the patient's comprehensive eye doctor were recommended to monitor the patients cataract for progression. Referral for surgical intervention is not indicated at this time. Related to Age-related nuclear cataract, bilateral Impression/Plan - Po sterior vitreous detachment was noted on examination today and explained to the patient. There is no evidence of a retinal tear, break or detachment. Patient instructed to call the office immediately if any symptoms noted. Related to Vitreous degeneration, bilateral Impression/Plan - RI GHT: Macular Pucker was noted on examination today and explained to the patient. The pucker is not inducing vision loss or distortion that is severe enough to warrant surgical risk. I have counseled for observation at the current level of vision, and the patient will l let us know if there is any progressive vision loss or worsening metamorphopsia. 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, right eye [facility] Work Phone: 1(960) 534-884510-24-2024 Evaluation note* Diagnosis Onset Date Resolution Status Admit Date Benign prostatic hyperplasia with lower urinary tract symptoms acute July 01 1:41pm CKD (chronic kidney disease) stage 3, GFR 30-59 ml/min acute Octobe r 2023 1:41pm Hypertensive chronic kidney disease with stage 1 through stage 4 chronic ki acute July 01, 2024 1:41pm Pernicious anemia acute July 01, 2024 1:41pm Retinal vein occlusion of ri ght eye acute July 01 1:41pm Vitamin D deficiency acute Juno 2023 1:41pm Benign prostatic hyperplasia with lower urinary tract symptoms acute August 31 8:51am Celiac disease acute August 092023 8:51am Chronic kidney disease acute cem2023 8:51am Chronic venous insufficiency of lower extremity acute August 31 8:51am KEVIN (generalized anxiety disorder) acute August 31 8:51am Primary hypertension acute Dece mber 2023 8:51am [facility] Work Phone: 1(498) 123-871008-26-2024 Evaluation note* Diagnosis Onset Date Resolution Status Admit Date Benign prostatic hyperplasia with lower urinary tract symptoms acute May 03 9:29am Celiac disease acute April 9:29am Chronic kidney disease acute Au edilma 2023 9:29am Chronic venous insufficiency of lower extremity acute May 03 9:29am KEVIN (generalized anxiety disorder) acute May 03 9:29am Primary hypertension acute Augu st 2023 9:29am Benign prostatic hyperplasia with lower urinary tract symptoms acute July 01 1:41pm CKD (chronic kidney disease) stage 3, GFR 30-59 ml/min acute Octobe r 2023 1:41pm Hypertensive chronic kidney disease with stage 1 through stage 4 chronic ki acute July 01, 2024 1:41pm Pernicious anemia acute July 01, 2024 1:41pm Retinal vein occlusion of ri ght eye acute July 01 1:41pm Vitamin D deficiency acute Juno 2023 1:41pm [facility] Work Phone: 1(236) 125-475104-15-2024 Hospital Discharge instructions Patient Education 12/22/2023 15:16:35 Benign Prostatic Hyperplasia Benign Prostatic Hyperplasia Benign prostatic hyperplasia (BPH) is an enlarged prostate gland that is caused by the normal agingprocess. The prostate may get bigger as a man gets older. The condition is not caused by cancer. The prostate is a walnut-sized gland that is involved in the production of semen. It is located in front of the rectum and below the bladder. The bladder stores urine. The urethra carries stored urine ou t of the body. An enlarged prostate can press on the urethra. This can make it harder to pass urine. The buildup of urine in the bladder can cause infection. Back pressure and infection may progress to bladder damage and kidney (renal) failure. What are the causes? This condition is part of the normal aging process. However, not all men develop problems from thiscondition. If the prostate enlarges away from the [...] urethra. Follow these instructions at home: Take [id number] and prescription medicines only as told by [...] provider. Document Revised: 03/13/2022 Document Reviewed: 03/13/2022 [employer] Patient Education 2022 [employer]. Follow Up Care 11/25/2022 09:03:23 With:ANDREEA DIXON, Graham Ruby, URL Address: [facility] [address] , [place] [address]- [phone] When: Unknown Comments:1 yr w/ PSA [facility] 03-22-2024 Evaluation note* Diagnosis Onset Date Resolution Status Pernicious anemia acute Chronic venous insufficiency of lower extremity acute Primary hypertension acute Stage 3a chronic kidney disease (CKD) [facility] Work Phone: 1(672) 394-485801-15-2024 Evaluation note* Encounter Date Diagnosis Assessment Notes Treatment Notes Treatment Clinical Notes Sep, Pernicious anemia (ICD-10 - D51.0) [facility] Other 01-12-2024 Evaluation note* Encounter Date Diagnosis [...] quality Sep, Pernicious anemia (ICD-10 - D51.0) [facility] Other 12-13-2023 Evaluation note* Encounter Date Diagnosis [...] may cause sedation Recheck in 1 mo [facility] Other 11-20-2023 Evaluation note* Encounter Date Diagnosis Assessment Notes Treatment Notes Treatment Clinical Notes Jul, Primary hypertension (ICD-10 - I10) [facility] Other 11-13-2023 Evaluation note* Encounter Date Diagnosis Assessment Notes Treatment Notes Treatment Clinical Notes Jul, Pernicious anemia (ICD-10 - D51.0) [facility] Other 09-11-2023 Evaluation note* Encounter Date Diagnosis Assessment Notes Treatment Notes Treatment Clinical Notes May, Pernicious anemia (ICD-10 - D51.0) [facility] Other 09-08-2023 Evaluation note* Encounter Date Diagnosis Assessment Notes Treatment Notes Treatment Clinical Notes May, Other osteoporosis without current pathological fracture (ICD-10 - M81.8) [facility] Other 08-10-2023 Evaluation note* Encounter Date Diagnosis [...] softeners for maintenance as well as Metamucil. [facility] Other 08-07-2023 Evaluation note* Encounter Date Diagnosis Assessment Notes Treatment Notes Treatment Clinical Notes Apr, Celiac disease (ICD-10 - K90.0) Patient advised to avoid gluten Apr, Encounter for screening for osteoporosis (ICD-10 - Z13.820) [facility] Other 06-05-2023 Evaluation note* Encounter Date Diagnosis Assessment Notes Treatment Notes Treatment Clinical Notes Feb, Pernicious anemia (ICD-10 - D51.0) [facility] Other 05-31-2023 Evaluation note* Encounter Date Diagnosis Assessment Notes Treatment Notes Treatment Clinical Notes January, Pernicious anemia (ICD-10 - D51.0) Continue monthly B12 injections January, Celiac disease (ICD-10 - K90.0) Continue Gluten free diet f/u GI January, Chronic idiopathic constipation (ICD-10 - K59.04) Miralax and Amitiza didn't help. Using Supp every 72 hours as needed. Push fluids [facility] Other 05-26-2023 Evaluation note* Encounter Date Diagnosis Assessment Notes Treatment Notes Treatment Clinical Notes January, Celiac disease (ICD-10 - K90.0) [facility] Other 05-01-2023 Evaluation note* Encounter Date Diagnosis [...] January, Iron deficiency anemia (ICD-10 - D50.9) [facility] Other 04-27-2023 Evaluation note* Encounter Date Diagnosis Assessment Notes Treatment Notes Treatment Clinical Notes Dec, Pernicious anemia (ICD-10 - D51.0) [facility] Other 04-12-2023 Evaluation note* Encounter Date Diagnosis [...] schedule CT scan to r/o obstructing mass [facility] Other 03-27-2023 Evaluation note* Encounter Date Diagnosis Assessment Notes Treatment Notes Treatment Clinical Notes Nov, Pernicious anemia (ICD-10 - D51.0) [facility] Other 03-27-2023 Evaluation note* Encounter Date Diagnosis [...] adequate fluid balance and to avoid dehydration. [facility] Other 03-20-2023 Hospital Discharge instructions Patient Education [...] urethra. Follow these instructions at home: Take jger-aju-qaeorph and prescription medicines only as told by [...] 08/25/2006 Document Revised: 07/20/2019 Document Reviewed: 09/29/2017 [employer] Patient Education 2020 [employer]. Follow Up Care 11/23/2021 08:51:05 With:ANDREEA DIXON, Graham Ruby, URL Address: [facility] [address] , [place] [address]- When: Unknown [facility] 02-23-2023 Evaluation note* Encounter Date Diagnosis Assessment Notes Treatment Notes Treatment Clinical Notes Oct, Pernicious anemia (ICD-10 - D51.0) [facility] Other 01-23-2023 Evaluation note* Encounter Date Diagnosis Assessment Notes Treatment Notes Treatment Clinical Notes Sep, Pernicious anemia (ICD-10 - D51.0) [facility] Other 01-20-2023 Evaluation note* Encounter Date Diagnosis Assessment Notes Treatment Notes Treatment Clinical Notes Sep, Anemia, unspecified type (ICD-10 - D64.9) [facility] Other 01-13-2023 Evaluation note* Encounter Date Diagnosis [...] High risk medication use (ICD-10 - Z79.899) [facility] Other Consult note* Clinical Note Date No Information [facility] Work Phone: Discharge summary* Clinical Note Date No Information [facility] Work Phone: Evaluation + Plan note Future Appointments Appointment Date:11/28/2023 08:30:00 AM Scheduled Provider:Graham VELAZQUEZ MD Location:[facility] Appointment Type:URO Office Visit Diagnostic Tests Pending * PSA Total 11/25/22 [facility] evaluation + Plan note Future Appointments Appointment Date:12/27/2024 09:45:00 AM Scheduled Provider:Graham VELAZQUEZ MD Location:[facility] Appointment Type:URO Office Visit Diagnostic Tests Pending * PSA Total 12/22/23 [facility] evalotxxqz noteNo InformationNoBLOVES Other evaluation noteNo assessment information available [facility] Work Phone: evaluation note* Diagnosis Onset Date Resolution Status Pernicious anemia acute Chronic venous insufficiency of lower extremity acute Primary hypertension acute [facility] Work Phone: evaluation note* Diagnosis Onset Date Resolution Status Pernicious anemia acute Chronic venous insufficiency of lower extremity acute Primary hypertension acute Benign prostatic hyperplasia with lower urinary tract symptoms acute Celiac disease acute Chronic kidney disease acute Chronic venous insufficiency of lower extremity acute KEVIN (generalized anxiety disorder) acute Primary hypertension acute Medicare annual wellness visit, subsequent noneactive [facility] Work Phone: evaluation note* Diagnosis Onset Date Resolution Status Chronic venous insufficiency of lower extremity acute Primary hypertension acute Benign prostatic hyperplasia with lower urinary tract symptoms acute Celiac disease acute Chronic kidney disease acute Chronic venous insufficiency of lower extremity acute KEVIN (generalized anxiety disorder) acute Primary hypertension acute Medicare annual wellness visit, subsequent noneactive [facility] Work Phone: evalumahjr note* Diagnosis Onset Date Resolution Status Benign prostatic hyperplasia with lower urinary tract symptoms acute Celiac disease acute Chronic kidney disease acute Chronic venous insufficiency of lower extremity acute KEVIN (generalized anxiety disorder) acute Primary hypertension acute Medicare annual wellness visit, subsequent noneactive [facility] Work Phone: Evaluation note* Diagnosis Onset Date Resolution Status Benign prostatic hyperplasia with lower urinary tract symptoms acute Celiac disease acute Chronic kidney disease acute Chronic venous insufficiency of lower extremity acute KEVIN (generalized anxiety disorder) acute Primary hypertension acute Medicare annual wellness visit, subsequent noneactive Benign prostatic hyperplasia with lower urinary tract symptoms acute Chronic kidney disease acute [id number] acute Other osteoporosis without c urrent pathological fracture acute Pernicious anemia acute Retinal vein occlusion of right eye acute [facility] Work Phone: Evaluation note* Diagnosis Onset Date Resolution Status Benign prostatic hyperplasia with lower urinary tract symptoms acute Chronic kidney disease acute [id number] acute Pernicious anemia acute Retinal vein occlusion of right eye acute Benign prostatic hyperplasia with lower urinary tract symptoms acute Chronic kidney disease acute [id number] acute Pernicious anemia acute Retinal vein occlusion of right eye acute [facility] Work Phone: Evaluation note* Diagnosis Onset Date Resolution Status Benign prostatic hyperplasia with lower urinary tract symptoms acute Chronic kidney disease acute [id number] acute Pernicious anemia acute Retinal vein occlusion of right eye acute Benign prostatic hyperplasia with lower urinary tract symptoms acute Chronic kidney disease acute [id number] acute Pernicious anemia acute Retinal vein occlusion of right eye acute Vitamin D deficiency acute [facility] Work Phone: Evaluation note* Diagnosis Onset Date Resolution Status Benign prostatic hyperplasia with lower urinary tract symptoms acute Chronic kidney disease acute [id number] acute Pernicious anemia acute Retinal vein occlusion of right eye acute Benign prostatic hyperplasia with lower urinary tract symptoms acute Chronic kidney disease acute [id number] acute Pernicious anemia acute Retinal vein occlusion of right eye acute Vitamin D deficiency acute Benign prostatic hyperplasia with lower urinary tract symptoms acute Celiac disease acute Chronic kidney disease acute Chronic venous insufficiency of lower extremity acute KEVIN (generalized anxiety disorder) acute Primary hypertension acute [facility] Work Phone: Evaluation note* Diagnosis Onset Date Resolution Status Benign prostatic hyperplasia with lower urinary tract symptoms acute Chronic kidney disease acute [id number] acute Pernicious anemia acute Retinal vein occlusion of right eye acute Vitamin D deficiency acute Benign prostatic hyperplasia with lower urinary tract symptoms acute Celiac disease acute Chronic kidney disease acute Chronic venous insufficiency of lower extremity acute KEVIN (generalized anxiety disorder) acute Primary hypertension acute [facility] Work Phone: Evaluation note* Diagnosis Onset Date Resolution Status Benign prostatic hyperplasia with lower urinary tract symptoms acute Celiac disease acute Chronic kidney disease acute Chronic venous insufficiency of lower extremity acute KEVIN (generalized anxiety disorder) acute Primary hypertension acute Benign prostatic hyperplasia with lower urinary tract symptoms acute CKD (chronic kidney disease) stage 3, GFR 30-59 ml/min acute [id number] acute Pernicious anemia acute Retinal vein occlusion of right eye acute Vitamin D deficiency acute [facility] Work Phone: History and physical note* Clinical Note Date No Information [facility] Work Phone: [facility] general Narrative - Reported* Type Description Date [...] CATARACT ECTRACTION, BILATERAL Hospitalization History SEE ABOVE [facility] Other [facility] general Narrative - Reported* Type Description Date [...] polypectomy 01/25 23 Hospitalization History SEE ABOVE [facility] [employer] Other [facility] general Narrative - Reported* Type Description Date [...] inguinal hernia 04/2023 Hospitalization History SEE ABOVE [facility] Other history general Narrative - Reported* Type Description Date [...] inguinal hernia 04/2023 Hospitalization History SEE ABOVE [facility] Other Hospital course Narrative No data available for this section [facility] Hospital Discharge instructionsAmbulatory Orders* Referral to Nephrology Location: None Selected [facility] Work Phone: Progress note No data available for this section [facility] progress note* Clinical Note Date No Information [facility] Work Phone: Reason for referral (narrative)* Reason *Waiting for appt Referral to confirm Celiac disease Diagnosis 1 Celiac disease (K90. 0) Referral Organization [facility] Referring Provider First Name Anirudh Referring Provider Last Name Adeline Referring Provider Specialty Internal Me dicine Referred Organization [facility] Referred Provider Zeeshan Joe Referred Address [address],[id number] Referred Provider Specialty Gastroentero logy Referral Priority Routine General Notes Sanam Guido 11:00:10 AM >RECEIVED TODAY, SENT P2P [employer] Other Reason for referral (narrative)* Reason For Referral No Information [facility] Work Phone: Summary Purpose Family History Relationship Condition Age [...] Unknown Heart disease Unknown mother Hypertension Unknown Family Member Type Diagnosis Age At Onset No Information Advance Directives Advance Directive Response Recorded Date/ Time Advance Directives January 15 3 9:48am Advance Directive Response Recorded Date/ Time Advance Directives nn January 15 3 8:48am Directive Yes / No Effective Date File Name No Information Chief Complaint and Reason for Visit Chief [...] lower urinary tract symptoms Chronic kidney disease [id number] Other osteoporosis without current pathological fracture Pernicious anemia Retinal vein occlusion of right eye Chief Complaint B12 B12 Shot RENAL CKD RENAL 2 WK F/U Reason for Visit Benign prostatic hyp erplasia with lower urinary tract symptoms Chronic kidney disease [id number] Pernicious anemia Retinal vein occlusion of right eye Benign prostatic hyperplasia with lower urinary tract symptoms Chronic kidney disease [id number] Pernicious anemia Retinal vein occlusion of right eye Chief Complaint B12 B12 Shot RENAL CKD RENAL 2 WK F/U B12 shot Reason for Visit Benign prostatic hyp erplasia with lower urinary tract symptoms Chronic kidney disease [id number] Pernicious anemia Retinal vein occlusion of right eye Benign prostatic hyperplasia with lower urinary tract symptoms Chronic kidney disease [id number] Pernicious anemia Retinal vein occlusion of right eye Vitamin D deficiency Chief Complaint B12 Shot RENAL CKD RENAL 2 WK F/U B12 shot 4 month check up Reason for Visit Benign prostatic hyp erplasia with lower urinary tract symptoms Chronic kidney disease [id number] Pernicious anemia Retinal vein occlusion of right eye Benign prostatic hyperplasia with lower urinary tract symptoms Chronic kidney disease [id number] Pernicious anemia Retinal vein occlusion of right [...] lower urinary tract symptoms Chronic kidney disease [id number] Pernicious anemia Retinal vein occlusion of right eye Benign prostatic hyperplasia with lower urinary tract symptoms Chronic kidney disease [id number] Pernicious anemia Retinal vein occlusion of right [...] lower urinary tract symptoms Chronic kidney disease [id number] Pernicious anemia Retinal vein occlusion of right eye Vitamin D deficiency Benign prostatic hyperplasia with lower urinary tract symptoms Celiac disease Chronic kidney disease Chronic venous insufficiency of lower extremity KEVIN (generalized anxiety disorder) Primary hypertension Chief Complaint B12 shot 4 month check up B 12 Shot b12 shot RENAL 3 MONTH F/U Reason for Visit Benign prostatic hyp erplasia with lower urinary tract symptoms Celiac disease Chronic kidney disease Chronic venous insufficiency of lower extremity KEVIN (generalized anxiety disorder) Primary hypertension Benign prostatic hyperplasia with lower urinary tract symptoms CKD (chronic kidney disease) stage 3, GFR 30-59 ml/min [id number] Pernicious anemia Retinal vein occlusion of right eye Vitamin D deficiency Chief Complaint Admit Date 4 month check up May 03, 2024 9: 29am B 12 Shot May 19, 2024 8:35am b12 shot June 18, 2024 8 :54am RENAL 3 MONTH F/U July 01, 2024 1 :41pm B12 Shot July 19, 2024 8:25am Reason for Visit Admit Date Benign prostatic hyperplasia with lower urinary tract symptoms May 03, 2024 9:29am Celiac disease May 03, 2024 9: 29am Chronic kidney disease May 03, 2024 9:29am Chronic venous insufficiency of lower ex tremity May 03, 2024 9:29am KEVIN (generalized anxiety disorder) Augus t 2023 9:29am Primary hypertension May 03, 2024 9 :29am Benign prostatic hyperplasia with lower urinary tract symptoms July 01, 2024 1:41pm CKD (chronic kidney disease) stage 3, GF R 30-59 ml/min July 01, 2024 1:41pm Hypertensive chronic kidney disease with stage 1 through stage 4 chronic ki July 01, 2024 1:41pm Pernicious anemia July 01, 2024 1 :41pm Retinal vein occlusion of right eye Octo 2023 1:41pm Vitamin D deficiency July 01, 2024 1:41pm Chief Complaint Admit Date RENAL 3 MONTH F/U July 01, 2024 1 :41pm B12 Shot July 19, 2024 8:25am b12 shot August 18, 2024 9:24am 4 month f/u August 31, 2024 8:51am CC Adult Risk Stratification September [id number] 11:20am B12 shot September 20, 2024 8 :46am Reason for Visit Admit Date Benign prostatic hyperplasia with lower urinary tract symptoms July 01, 2024 1:41pm CKD (chronic kidney disease) stage 3, GF R 30-59 ml/min July 01, 2024 1:41pm Hypertensive chronic kidney disease with stage 1 through stage 4 chronic ki July 01, 2024 1:41pm Pernicious anemia July 01, 2024 1 :41pm Retinal vein occlusion of right eye Octo 2023 1:41pm Vitamin D deficiency July 01, 2024 1:41pm Benign prostatic hyperplasia with lower urinary tract symptoms August 31, 2024 8:51am Celiac disease August 31, 2024 8:51am Chronic kidney disease August 31 8:51am Chronic venous insufficiency of lower ex tremity August 31, 2024 8:51am KEVIN (generalized anxiety disorder) Decem 2023 8:51am Primary hypertension August 31, 2024 8:51am Additional Source Comments REASON FOR VISIT (unrecogniz ed section and content) WELLNESS MBLab ResultsB-12 S hot mbmedicationB-12 ShotB-12 ShotDigestive System IssuesCeliac resultsReferralMultiple IssuesBloating/GasIncreased PainB-12 ShotCONSULT FOR CELIAC DISEASESENDING LABS1 week follow upB-12 ShotmessageLab resultsNo InformationPATIENT IS HERE FOR FOLLOW UP TO DISCUSS CELIAC DISEASE6 month Follow up -b12Lab ResultsGASTRO CONSULTNo InformationB-12 ShotRefillDEXA [id number] QuestionHigh BP1 month Follow up1 month Follow upB-12 SHOT Patient Care team informatio n (unrecognized section and content) Team Status: Active Member Role Status Dates Anirudh Wang DO Primary Care Provider Active Team Status: Active Member Role Status Dates Anirudh Wang DO Primary Care Provider Active Start: June 22, 2024 Billy Mata MD Attending Provider Active Start : June 22, 2024 Team Status: Inactive Member Role Status Dates Anirudh Wang DO Primary Care Provider Active Start: July 01, 2024 End: July 01, 2024 Billy Mata MD Attending Provider Active Start : July 01, 2024 End: July 01, 2024 Team Status: Inactive Member Role Status Dates Anirudh Ball , DO Primary Care Provide r, Attending Provider Active Start: July 19, 2024 End: July 19, 2024 Team Status: Inactive Member Role Status Renato Wang DO Primary Care Provide r, Attending Provider Active Start: August 18, 2024 End: August 18, 2024 Team Status: Inactive Member Role Status Rneato Wang , DO Primary Care Provide r, Attending Provider Active Start: August 31, 2024 End: August 31, 2024 Team Status: Active Member Role Status Renato Wang DO Primary Care Provide r, Attending Provider Active Start: September 02, 2024 Team Status: Inactive Member Role Status Renato Wang DO Primary Care Provide r, Attending Provider Active Start: September 20, 2024 End: September 20, 2024 Team Status: Active Member Role Status Renato Wang DO Primary Care Provider Active Team Status: Inactive Member Role Status Renato Wang DO Primary Care Provider Active Start: December 30, 2023 End: December 30, 2023 Tricia Weiss MD Attending Provider Active St art: December 30, 2023 End: December 30, 2023 Team Status: Inactive Member Role Status Renato Oleary Adeline DO Primary Care Provide r, Attending Provider [...] 2023 Team Status: Inactive Member Role Status Renaot Wang DO Primary Care Provide r, Attending [...] June 18, 2024 End: June 18, 2024 Team Status: Active Member Role Status Renato Wang DO Primary Care Provider Active Start: June 22, 2024 Billy Mata MD Attending Provider Active Start : June 22, 2024 Team Status: Inactive Member Role Status Dates Anirudh Ball , DO Primary Care Provider Active Start: July 01, 2024 End: July 01, 2024 Billy Mata MD Attending Provider Active Start : July 01, 2024 End: July 01, 2024 Team Status: Inactive Member Role Status Dates Anirudh Wang , DO Primary Care Provide r, Attending Provider Active Start: July 19, 2024 End: July 19, 2024 Name Effective Dates (start - stop) Status Members No Information Team Status: Inactive Member Role Status Dates Anirudh Wang , DO Primary Care Provide r, Attending Provider Active Start: August 18, 2024 End: August 18, 2024 Team Status: Inactive Member Role Status Dates Anirudh Wang , DO Primary Care Provide r, Attending Provider Active Start: August 31, 2024 End: August 31, 2024 Team Status: Active Member Role Status Dates Anirudh Wang , DO Primary Care Provide r, Attending Provider Active Start: September 02, 2024 Team Status: Inactive Member Role Status Dates Anirudh Wang , DO Primary Care Provide r, Attending Provider Active Start: September 20, 2024 End: September 20, 2024 (unrecognized sect ion and content) No Status Records FoundNo Status Records FoundNo Status Records FoundNo Status Records Found INFORMATION SOURCE (unrecogn ized section and content) DATE CREATED AUTHOR 02/14/2023 [facility] DATE CREATED AUTHOR AUTHOR'S ORGANIZ ATION 04/21/2023 [facility] DATE CREATED AUTHOR AUTHOR'S ORGANIZ ATION 12/31/2023 [facility] DATE CREATED AUTHOR AUTHOR'S ORGANIZ ATION 09/10/2024 [facility] Goals (unrecognized section and [...] BE BASED ON THE PRIMARY CLINICAL RECORDS. [facility]. provides no warranty or guarantee of the accuracy or completeness of information in this document.
[2024-10-14 10:45] LABS: Basophils Percent Auto 0.5 % (0.2-2.0); Eosinophils Absolute Auto 0.2 10^3/uL (0.0-0.7); Eosinophils Percent Auto 4.1 % (0.9-7.0); Hematocrit 42.1 % (42.0-54.0); Hemoglobin 13.9 g/dL (14.0-18.0); Immature Granulocytes Abs Auto 0.03 10^3/uL (0.00-0.03); Immature Granulocytes Pct Auto 0.5 % (0.0-0.5); Lymphocytes Absolute Auto 1.8 10^3/uL (1.2-3.8); Lymphocytes Percent Auto 31.4 % (20.5-60.0); Mean Corpuscular Hemoglobin 31.6 pg (25.9-34.0); Mean Corpuscular Volume 95.7 fL (80.0-94.0); Mean Platelet Volume 10.1 fL (9.5-13.5); Monocytes Absolute Auto 0.9 10^3/uL (0.3-0.8); Monocytes Percent Auto 15.4 % (1.7-12.0); Neutrophils Absolute Auto 2.8 10^3/uL (1.4-6.5); Neutrophils Percent Auto 48.1 % (43.0-75.0); Platelet Count 220 10^3/uL (150-450); Red Cell Distribution Width 12.6 % (11.0-15.0); White Blood Count 5.9 10^3/uL (4.0-11.0)
== END 2024-10-14 10:21 | disposition home or self-care (01) ==
PROVIDERS: PCP Internal Medicine
DX: Z01.812 Encounter for preprocedural laboratory examination (principal); H02.429 Myogenic ptosis of unspecified eyelid
CPT/HCPCS: 36415; 85025

== ENCOUNTER 2024-12-06 08:43 | Outpatient (OUT) | payer MEDICARE, SELFPAY ==
--- OUTSIDE RECORDS SUMMARY | 2024-12-06 09:02 | XMS_ITS | CCD ---
Author Organization [facility] Care Team Providers Care Senior Support Analyst Name Role Phone Anirudh Wang Unavailable ANIRUDH [...] Care Unavailable MD Vaughn Pretty Attending Provider DO Anirudh Wang Primary Care Provider [phone] MD Ryan Cornell Attending Provider [phone] Asaad, Imad Attending Unavailable Anirudh Wang Primary Care Unavailable Devi, Imadolfo Admitting Unavailable Anirudh Wang Primary Care Unavailable Ryan Cornell Admitting Unavailable Ryan Cornell Attending Unavailable Anirudh Wang Primary Care Unavailable Ryan Cornell Admitting Unavailable Ryan Cornell Attending Unavailable Tricia Weiss Unavailable Al Shweiki, Ashkan Attending Unavailable Al Shweiki, Ashkan Referring Unavailable Al Shweiki, Ashkan Attending Unavailable Al Shweiki, Ashkan Referring Unavailable Al Shweiki Ashkan Attending Unavailable Ashkan Pacheco Referring Unavailable Ashkan Pacheco Attending Unavailable Ashkan Pacheco Attending Unavailable Ashkan Pacheco Referring Unavailable Ashkan Pacheco MD Unavailable UnavailGraham Proctor Attending Unavailable Graham VELAZQUEZ Attending Unavailable Graham VELAZQUEZ Attending Unavailable Allergies Allergy Classification Reported Allergen(s) Allergy Type Date of Onset Reaction(s) Facility (20 sources) Doxycycline Drug Allergy Unknown [facility] Other (4 sources) patient allergy list reviewed by nurse or physicia Propensity to adverse reactions 9 Comment:Done [employer] Other (1 source) Doxycycline Drug Allergy Unknown [employer] Other (1 source) Amoxicillin; Translations: [amoxicillin] Drug Allergy 7 Unknown [facility] Medications Current Medications Medication Drug Class(es) Dates Sig (Normalized) Sig (Original) amLODIPine 5 mg oral tablet (20 sources) Dihydropyridine Calcium Channel [place] Start: 10-24-2024 take 1 tablet by mouth once daily Amlodipine 5 mg tablet Active 0 .ROUTE .COMPLEX October 24, 2024 9:43am TAKE 1 TABLET BY MOUTH EVERY DAY FOR 90 DAYS Start: 11-25-2022 End: 10-24-2024 take 1 tablet by mouth once daily in the evening Amlodipine 5 mg tablet Discontinued 5 MG PO Every evening January 23, 2023 12:00am October 24, 2024 9:43am aspirin 81 mg delayed release oral tablet (20 sources) Platelet Aggregation Inhibitor, Nonsteroidal Anti-inflammatory Drug [...] tablet Active 10 MG PO Daily 90 January 29, 2024 3:40pm Start: 11-11-2019 take 1 mg by mouth once daily benazepril 5 mg oral tablet mg tab(s), Oral, Daily, Refills(s) 0 Start Date: 11/11/19 Status: Ordered calcium carbonate 1500 mg / cholecalciferol 500 unt oral capsule (12 sources) Vitamin D Start: 03-18-2024 take 1 capsule by mouth once daily Calcium Carbonate-Vitamin D3 (Calcium 600 With Vitamin D3) 600 mg-12.5 mcg (500 unit) capsule Active 1 CAP PO daily March 18, 2024 12:00am dextran 70 1 mg/ml / hypromellose 3 mg/ml ophthalmic solution (1 source) Plasma Volume Kinesiology Professor Artificial Tears (PF ) drops in a dropperette - Active escitalopram 10 mg oral tablet (20 sources) Serotonin Reuptake Inhibitor Start: 06-14-2024 End: 08-31-2024 take 1 tablet by mouth once daily Escitalopram Oxalate 10 mg tablet Active 0 .ROUTE .COMPLEX 90 August 31, 2024 10:07am TAKE 1 TABLET BY MOUTH EVERY DAY [...] 10 mg tablet Discontinued 0 .ROUTE .COMPLEX 90 December 15, [...] / HYDROcodone bitartrate 5 mg oral tablet (18 sources) Opioid Agonist Start: 04-10-2023 End: 10-24-2023 take 1 tablet by mouth every six hours as needed for pain Hydrocodone-Acetami nophen 5-325 mg tablet Discontinued 1 TAB PO Q6H as needed for pain 25 01April 10, 2023 October 24, 2023 10:55am alendronic [...] May, Active Alendronate 70 mg tablet, effervescent (4 sources) Start: 10-24-2023 End: 03-18-2024 Alendronate 70 mg tablet, effervescent Discontinued 70 MG PO Daily October 24, 2023 1:00am March 18, 2024 2:26pm 1 tablet 30 minutes before the first food, beverage or medicine of the day dissolved in 4 ounces of water Start: 10-24-2023 End: 03-18-2024 Alendronate 70 mg tablet, ef fervescent Discontinued 70 MG PO Daily October 24, [...] 1000 mcg cholecalciferol 0.025 mg oral tablet (19 sources) Vitamin D Start: 03-27-2023 End: 10-24-2023 take 1 tablet by mouth once daily Cholecalciferol (Vitamin D3) (Vitamin D3) 25 mcg (1,000 unit) Tablet Discontinued 1000 UNIT PO Daily March 27, 2023 12:00am October 24, 2023 10:54am Cyanocobalamin (Vitamin B-12) (Vitamin B-12) 100 mcg/mL Solution (19 sources) Start: 03-27-2023 End: 10-24-2023 Cyanocobalamin (Vitamin [...] tablet Discontinued 1 MG PO Daily January 23, [...] Translations: [Other chest pain] Episodic Nutritional deficiencies (18 sources) Vitamin D deficiency; Translations: [Vitamin D deficiency, unspecified] 04-03-2024 Chronic Osteoporosis (20 sources) Osteoporosis; Translations: [Other osteoporosis without current pathological fracture] Chronic Other aftercare (2 sources) Other prison (current) drug therapy; Translations: [[facility] CURRENT [facility]APY] Onset: 02-05-2023 Episodic Other diseases of veins and lymphatics (17 sources) Venous insufficiency of leg; Translations: [Venous insufficiency (chronic) (peripheral)] 11-05-2023 Episodic Other diseases of veins and lymphatics (16 sources) Venous insufficiency (chronic) (peripheral); Translations: [Venous [...] lung field] Episodic Other nervous system disorders (18 sources) Acute postoperative pain; Translations: [Other acute [...] Unclassified (1 source) possible CME OS per . (chief complaint) reports gradual vision improvement (chief [...] Test Name Value Interpretation Reference Range Facility Basophils Auto (Bld) [#/Vol] on 10-14-2024 Basophils (Bld) [#/Vol] Automated basoph il count 0.0-0.1 [facility] Basophils/100 WBC Auto (Bld) on 10-14-2024 Basophils/100 WBC (Bld) Automated basophil % 0. 2-2.0 [facility] Eosinophils/100 WBC Auto (Bl d)on 10-14-2024 Eosinophils/100 WBC (Bld) Automated eosinophil % 0.9-7.0 [facility] Erythrocyte distribution wid th Auto (RBC) [Ratio]on 10-14-2024 Erythrocyte distribution width (RBC) [Ratio] Erythrocyte distribution width [Ratio] by Automated count 11.0-15.0 [facility] Hematocrit Auto (Bld) [Volum e fraction]on 10-14-2024 Hematocrit (Bld) [Volume fraction] Hematocrit [Volume Fraction] of Blood by Automated count 42.0-54.0 [facility] Hemoglobin [Mass/volume] in Bloodon 10-14-2024 Hemoglobin (Bld) [Mass/Vol] Hemoglobin [Mass/volume] in Blood Low 14.0-18.0 [facility] Laboratory - Hematology and Cell countson 10-14-2024 Immature granulocytes/100 WBC (Bld) 0.5 % 0.0-0.5 [facility] Leukocytes [#/volume] correc dneis for nucleated erythrocytes in Blood by Automated counon 10-14-2024 WBC corrected for nucl RBC Auto (Bld) [#/Vol] Leukocytes [#/volume] corrected for nucleated erythrocytes in Blood by Automated coun 4.0-11.0 [facility] Lymphocytes Auto (Bld) [#/Vo l]on 10-14-2024 Lymphocytes (Bld) [#/Vol] Lymphocytes [#/volume] in Blood by Automated count 1.2-3.8 [facility] Lymphocytes/100 WBC Auto (Bl d)on 10-14-2024 Lymphocytes/100 WBC (Bld) Lymphocytes/100 leukocytes in Blood by Automated count 20.5-60.0 [facility] MCH Auto (RBC) [Entitic mass ]on 10-14-2024 MCH (RBC) [Entitic mass] MCH [Entitic mass] by Automated count 25.9-34.0 [facility] MCHC Auto (RBC) [Mass/Vol]on 10-14-2024 MCHC (RBC) [Mass/Vol] MCHC [Mass/volume] by Automated count 29.9-35.2 [facility] MCV Auto (RBC) [Entitic vol] on 10-14-2024 MCV (RBC) [Entitic vol] MCV [Entitic vol ume] by Automated count High 80.0-94.0 [facility] Monocytes Auto (Bld) [#/Vol] on 10-14-2024 Monocytes (Bld) [#/Vol] Automated blood monocyte count High 0.3-0.8 [facility] Monocytes/100 WBC Auto (Bld) on 10-14-2024 Monocytes/100 WBC (Bld) Automated monocyte % High 1. 7-12.0 [facility] Neutrophils Auto (Bld) [#/Vo l]on 10-14-2024 Neutrophils (Bld) [#/Vol] Neutrophils [#/volume] in Blood by Automated count 1.4-6.5 [facility] Neutrophils/100 WBC Auto (Bl d)on 10-14-2024 Neutrophils/100 WBC (Bld) Automated neutrophil % 43.0-75.0 [facility] No Panel Informationon 10-14 Eosinophils # (Auto) 0.2 10 3/uL 0.0-0.7 [facility] Immature Granulocyte # (Auto) 0.03 10 3/uL 0.00-0.03 [facility] Platelet mean volume Auto (B ld) [Entitic vol]on 10-14-2024 Platelet mean volume (Bld) [Entitic vol] Platelet mean volume [Entitic volume] in Blood by Automated count 9.5-13.5 [facility] Platelets Auto (Bld) [#/Vol] on 10-14-2024 Platelets (Bld) [#/Vol] Platelets [#/vol ume] in Blood by Automated count 150-450 [facility] RBC Auto (Bld) [#/Vol]on RBC (Bld) [#/Vol] Erythrocytes [#/volume] in Blood by Automated count Low 4.70-6.10 [facility] Erythrocyte distribution wid th Auto (RBC) [Ratio]on 06-22-2024 Erythrocyte distribution width (RBC) [Ratio] 12.6 % 11.0-15.0 [facility] Erythrocyte distribution width (RBC) [Ratio] Erythrocyte distribution width [Ratio] by Automated count 11.0-15.0 [facility] Estimated glomerular filtrat ion rate (GFR) non- Americanon 06-22-2024 GFR/1.73 sq M.predicted among non-blacks MDRD (S/P/Bld) [Vol rate/Area] 40 mL/min/{1.73_m2} Low >=60 mL/min/1.73 m 2 [facility] GFR/1.73 sq M.predicted among non-blacks MDRD (S/P/Bld) [Vol rate/Area] Estimated glomerular filtration rate (GFR) non- Low >=60 mL/min/1.73 m 2 [facility] Hematocrit Auto (Bld) [Volum e fraction]on 06-22-2024 Hematocrit (Bld) [Volume fraction] 45.1 % 42.0-54.0 [facility] Hematocrit (Bld) [Volume fraction] Hematocrit [Volume Fraction] of Blood by Automated count 42.0-54.0 [facility] Hemoglobin [Mass/volume] in Bloodon 06-22-2024 Hemoglobin (Bld) [Mass/Vol] 14.6 g/dL 14.0-18.0 [facility] Hemoglobin (Bld) [Mass/Vol] Hemoglobin [Mass/volume] in Blood 14.0-18.0 [facility] Iron binding capacity [Mass/ volume] in Serum or Plasmaon 06-22-2024 Iron binding capacity [Mass/Vol] 317.0 ug/dL 250.0-450.0 [facility] Iron binding capacity [Mass/Vol] Iron binding capacity [Mass/volume] in Serum or Plasma 250.0-450.0 [facility] Iron saturation [Mass Fracti on] in Serum or Plasmaon 06-22-2024 Iron saturation [Mass fraction] 30.3 % [facility] Iron saturation [Mass fraction] Iron saturation [Mass Fraction] in Serum or Plasma [facility] Laboratory - Chemistry and C hemistry - challengeon 06-22-2024 Albumin [Mass/Vol] 3.9 g/dL 3.4-5.0 [facility] Calcium [Mass/Vol] 9.2 mg/dL 8.5-10.1 [facility] Chloride [Moles/Vol] 105 mmol/L 98-107 [facility] CO2 [Moles/Vol] 28.9 mmol/L 21.0-32.0 [facility] Creatinine [Mass/Vol] 1.67 mg/dL High 0.70-1.30 [facility] Ferritin [Mass/Vol] 53.0 ng/mL 26.0-388.0 [facility] GFR/1.73 sq M.predicted MDRD (S/P/Bld) [Vol rate/Area] 49 mL/min/{1.73_m2} Low >=60 mL/min/1.73 m 2 [facility] Glucose [Mass/Vol] 121 mg/dL High 74-106 [facility] Iron [Mass/Vol] 96.0 ug/dL 65.0-175.0 [facility] Magnesium [Mass/Vol] 2.2 mg/dL 1.8-2.4 [facility] Potassium [Moles/Vol] 5.0 mmol/L 3.5-5.1 [facility] Sodium [Moles/Vol] 141 mmol/L 136-145 [facility] Urate [Mass/Vol] 6.9 mg/dL 3.5-7.2 [facility] Urea nitrogen [Mass/Vol] 26.0 mg/dL High 7.0-18.0 [facility] Urea nitrogen/Creatinine [Mass ratio] 15.6 mg/mg [facility] Bilirubin Ql (U) Negative NEGATIVE [facility] Glucose (U) [Mass/Vol] Negative NEGATIVE [facility] Ketones Ql (U) Negative NEGATIVE [facility] pH (U) 6.0 [pH] 5.0-9.0 [facility] Specific gravity (U) [Rel density] 1.015 1.005-1.025 [facility] Urobilinogen Qn (U) 0.2 {Aimee'U}/dL 0.2-1.0 [facility] Laboratory - Specimen inform ationon 06-22-2024 Appearance (U) CLEAR CLEAR [facility] Color (U) LT. YELLOW YELLOW [facility] - Urinalysison Leukocyte esterase Test strip Ql (U) Negative NEGATIVE [facility] Mucus Ql (Urine sed) NONE SEEN NONE SEEN [facility] Nitrite Ql (U) Negative NEGATIVE [facility] Protein (U) [Mass/Vol] 21.1 mg/dL High <=11.9 [facility] Protein Ql (U) Negative NEG/TRACE [facility] Leukocytes [#/volume] correc denis for nucleated erythrocytes in Blood by Automated counon 06-22-2024 WBC corrected for nucl RBC Auto (Bld) [#/Vol] 5.1 10 3/uL 4.0-11.0 [facility] WBC corrected for nucl RBC Auto (Bld) [#/Vol] Leukocytes [#/volume] corrected for nucleated erythrocytes in Blood by Automated coun .0-11.0 [facility] MCH Auto (RBC) [Entitic mass ]on 06-22-2024 MCH (RBC) [Entitic mass] 31.2 pg 25.9-34.0 [facility] MCH (RBC) [Entitic mass] MCH [Entitic mass] by Automated count 25.9-34.0 [facility] MCHC Auto (RBC) [Mass/Vol]on 06-22-2024 MCHC (RBC) [Mass/Vol] 32.4 g/dL 29.9-35.2 [facility] MCHC (RBC) [Mass/Vol] MCHC [Mass/volume] by Automated count 29.9-35.2 [facility] MCV Auto (RBC) [Entitic vol] on 06-22-2024 MCV (RBC) [Entitic vol] 96.4 fL High 80.0-94.0 [facility] MCV (RBC) [Entitic vol] MCV [Entitic vol ume] by Automated count High 80.0-94.0 [facility] No Panel Informationon 06-22 Parathyroid Hormone (Intact) 41 pg/mL [facility] Comment on above: Performed at: [facility] [employer] [place] [id number] Director: Vinny Alexander PhD, Phone: [phone] Phosphorus Level 2.5 mg/dL Low 2.6-4.7 [facility] Urine Bacteria TRACE #/HPF Abnormal NONE SEEN [facility] Urine Occult Blood Negative NEGATIVE [facility] Urine Other Casts NONE SEEN #/LPF NONE SEEN [facility] Urine Other Crystals None Seen #/HPF None Seen [facility] Urine Random Creatinine 104.02 mg/dL 20.0 0-300.0 0 [facility] Urine RBC NONE SEEN #/HPF 0-2 [facility] Urine Squamous Epithelial Cells RARE #/LPF NONE/RARE [facility] Urine WBC NONE SEEN #/HPF NONE SEEN [facility] Platelet mean volume Auto (B ld) [Entitic vol]on 06-22-2024 Platelet mean volume (Bld) [Entitic vol] 9.8 fL 9.5-13.5 [facility] Platelet mean volume (Bld) [Entitic vol] Platelet mean volume [Entitic volume] in Blood by Automated count 9.5-13.5 [facility] Platelets Auto (Bld) [#/Vol] on 06-22-2024 Platelets (Bld) [#/Vol] 234 10 3/uL 150-450 [facility] Platelets (Bld) [#/Vol] Platelets [#/vol ume] in Blood by Automated count 150-450 [facility] RBC Auto (Bld) [#/Vol]on RBC (Bld) [#/Vol] 4.68 10 6/uL Low 4.70-6.10 [facility] RBC (Bld) [#/Vol] Erythrocytes [#/volume] in Blood by Automated count Low 4.70-6.10 [facility] Serum or plasma anion gap de terminationon 06-22-2024 Anion gap [Moles/Vol] 12.1 mmol[facility] Anion gap [Moles/Vol] Serum or plasma an ion gap determination [facility] Urine protein/creatinine rat ioon 06-22-2024 Protein/Creatinine (U) [Ratio] 0.20 [facility] Protein/Creatinine (U) [Ratio] Urine protein/creatinine ratio [facility] Erythrocyte distribution wid th Auto (RBC) [Ratio]on 03-19-2024 Erythrocyte distribution width (RBC) [Ratio] 12.8 % 11.0-15.0 [facility] Estimated glomerular filtrat ion rate (GFR) non- Americanon 03-19-2024 GFR/1.73 sq M.predicted among non-blacks MDRD (S/P/Bld) [Vol rate/Area] 36 mL/min/{1.73_m2} Low >=60 [facility] Hematocrit Auto (Bld) [Volum e fraction]on 03-19-2024 Hematocrit (Bld) [Volume fraction] 42.1 % 42.0-54.0 [facility] Hemoglobin [Mass/volume] in Bloodon 03-19-2024 Hemoglobin (Bld) [Mass/Vol] 13.7 g/dL Low 14.0-18.0 [facility] Laboratory - Chemistry and C hemistry - challengeon 03-19-2024 Albumin [Mass/Vol] 3.8 g/dL 3.4-5.0 [facility] Calcium [Mass/Vol] 8.8 mg/dL 8.5-10.1 [facility] Chloride [Moles/Vol] 105 mmol/L 98-107 [facility] CO2 [Moles/Vol] 25.8 mmol/L 21.0-32.0 [facility] Creatinine [Mass/Vol] 1.83 mg/dL High 0.70-1.30 [facility] GFR/1.73 sq M.predicted MDRD (S/P/Bld) [Vol rate/Area] 44 mL/min/{1.73_m2} Low >=60 [facility] Glucose [Mass/Vol] 108 mg/dL High 74-106 [facility] Magnesium [Mass/Vol] 1.9 mg/dL 1.8-2.4 [facility] Potassium [Moles/Vol] 4.8 mmol/L 3.5-5.1 [facility] Sodium [Moles/Vol] 140 mmol/L 136-145 [facility] Urate [Mass/Vol] 7.9 mg/dL High 3.5-7.2 [facility] Urea nitrogen [Mass/Vol] 30.0 mg/dL High 7.0-18.0 [facility] Urea nitrogen/Creatinine [Mass ratio] 16.4 mg/mg [facility] Bilirubin Ql (U) Negative NEGATIVE [facility] Glucose (U) [Mass/Vol] Negative NEGATIVE [facility] Ketones Ql (U) Negative NEGATIVE [facility] pH (U) 6.0 [pH] 5.0-9.0 [facility] Specific gravity (U) [Rel density] 1.015 1.005-1.025 [facility] Urobilinogen Qn (U) 0.2 {Aimee'U}/dL 0.2-1.0 [facility] - Specimen inform ationon 03-19-2024 Appearance (U) CLEAR CLEAR [facility] Color (U) YELLOW YELLOW [facility] - Urinalysison Leukocyte esterase Test strip Ql (U) Negative NEGATIVE [facility] Mucus Ql (Urine sed) NONE SEEN NONE SEEN [facility] Nitrite Ql (U) Negative NEGATIVE [facility] Protein (U) [Mass/Vol] 20.0 mg/dL High <=11.9 [facility] Protein Ql (U) Negative NEG/TRACE [facility] Leukocytes [#/volume] correc denis for nucleated erythrocytes in Blood by Automated counon 03-19-2024 WBC corrected for nucl RBC Auto (Bld) [#/Vol] 5.0 10 3/uL 4.0-11.0 [facility] MCH Auto (RBC) [Entitic mass ]on 03-19-2024 MCH (RBC) [Entitic mass] 30.9 pg 25.9-34.0 [facility] MCHC Auto (RBC) [Mass/Vol]on 03-19-2024 MCHC (RBC) [Mass/Vol] 32.5 g/dL 29.9-35.2 [facility] MCV Auto (RBC) [Entitic vol] on 03-19-2024 MCV (RBC) [Entitic vol] 95.0 fL High 80.0-94.0 [facility] No Panel Informationon 03-19 25-Hydroxy Vitamin D Total 52.4 ng/mL [facility] Comment on above: <20 ng/mL Vit D defi cient20-<30 ng/mL Vit D [id number] ng/mL Vit D sufficient>100 ng/mL Potential Toxicity Parathyroid Hormone (Intact) 41 pg/mL 15-65 [facility] Comment on above: Performed at: [address] [id number] Director: Vinny Alexander PhD, Phone: [phone] Phosphorus Level 3.0 mg/dL 2.6-4.7 [facility] Urine Bacteria NONE SEEN #/HPF NONE SEEN [facility] Urine Occult Blood Negative NEGATIVE [facility] Urine Other Casts NONE SEEN #/LPF NONE SEEN [facility] Urine Other Crystals None Seen #/HPF None Seen [facility] Urine Random Creatinine 118.03 mg/dL 20.0 0-300.0 0 [facility] Urine RBC 0-2 #/HPF 0-2 [facility] Urine Squamous Epithelial Cells NONE SEEN #/LPF NONE/RARE [facility] Urine WBC 0-2 #/HPF Abnormal NONE SEEN [facility] Platelet mean volume Auto (B ld) [Entitic vol]on 03-19-2024 Platelet mean volume (Bld) [Entitic vol] 10.6 fL 9.5-13.5 [facility] Platelets Auto (Bld) [#/Vol] on 03-19-2024 Platelets (Bld) [#/Vol] 221 10 3/uL 150-450 [facility] RBC Auto (Bld) [#/Vol]on RBC (Bld) [#/Vol] 4.43 10 6/uL Low 4.70-6.10 [facility] Serum or plasma anion gap de terminationon 03-19-2024 Anion gap [Moles/Vol] 14.0 mmol/L [facility] Urine protein/creatinine rat ioon 03-19-2024 Protein/Creatinine (U) [Ratio] 0.17 [facility] Lab Reportson 12-30-2023 Lab Reports [id number]# 1.00TIFF Normal [facility] RAD - MISCon 12-24-2023 RAD MIS [id number]#1 .00TIFF Normal [facility] Patient Educationon 12-22-19 Patient Education [...] Follow these instructions at home: ? Take [id number] and prescription medicines only as told by [...] the medicine (more content not included)... Normal [facility] Urology Office/Clinic Noteon 12-22-2023 Urology [...] Graham Ruby, [facility] [address], [place] [address] [phone] Additional Instructions: 1 yr w/ PSA Patient [...] Negative (12/22/23 (more content not included)... Normal [facility] Comment on above: Result Comment: Elec tronically Signed By: Graham VELAZQUEZ MD\.br\Date and Time Signed: 12/22/23 15:22 EDT\.br\Electronically Co-Signed By: Anita Magana\.br\Date and Time Co-Signed: 12/22/23 15:20 EDT Albumin [Mass/volume] in Ser um or Plasmaon 12-16-2023 Albumin [Mass/Vol] 4.2 g/dL 2.9-4.4 [facility] Automated urine specific gra vity by refractometryon 12-16-2023 Specific gravity Refractometry automated (U) [Rel density] <=1.005 Abnormal 1.005-1.025 [facility] Basophils Auto (Bld) [#/Vol] on 12-16-2023 Basophils (Bld) [#/Vol] 0.0 10 3/uL 0.0-0.1 [facility] Basophils/100 WBC Auto (Bld) on 12-16-2023 Basophils/100 WBC (Bld) 0.5 % 0.2-2.0 [facility] Bilirubin Auto test strip (U ) [Mass/Vol]on 12-16-2023 Bilirubin (U) [Mass/Vol] Negative NEGATIVE [facility] Color Auto (U)on 12-16-2023 Color (U) LT. YELLOW YELLOW [facility] Eosinophils/100 WBC Auto (Bl d)on 12-16-2023 Eosinophils/100 WBC (Bld) 2.5 % 0.9-7.0 [facility] Erythrocyte distribution wid th Auto (RBC) [Ratio]on 12-16-2023 Erythrocyte distribution width (RBC) [Ratio] 12.6 % 11.0-15.0 [facility] Hematocrit Auto (Bld) [Volum e fraction]on 12-16-2023 Hematocrit (Bld) [Volume fraction] 42.8 % 42.0-54.0 [facility] Hemoglobin [Mass/volume] in Bloodon 12-16-2023 Hemoglobin (Bld) [Mass/Vol] 14.0 g/dL 14.0-18.0 [facility] IgA [Mass/volume] in Serum o r Plasmaon 12-16-2023 IgA [Mass/Vol] 143 mg/dL 61-437 [facility] IgG [Mass/volume] in Serum o r Plasmaon 12-16-2023 IgG [Mass/Vol] 1110 mg/dL 603-1613 [facility] IgM [Mass/volume] in Serum o r Plasmaon 12-16-2023 IgM [Mass/Vol] 62 mg/dL 15-143 [facility] Immunoglobulin light chains. kappa.free [Mass/volume] in Serumon 12-16-2023 Immunoglobulin light chains.kappa.free (S) [Mass/Vol] 39.7 mg/L Abnormal 3.3-19.4 [facility] Immunoglobulin light chains. kappa.free/Immunoglobulin light chains.lambda.free [Kassy 12-16-2023 Immunoglobulin light chains.kappa.free/Immun oglobulin light chains.lambda.free (S) [Mass ratio] 1.68 Abnormal 0.26-1.65 [facility] Comment on above: Performed at: [place] [id number] Director: Vinny Alexander PhD, Phone: [phone] Immunoglobulin light chains. lambda.free [Mass/volume] in Serum or Plasmaon 12-16-2023 Immunoglobulin light chains.lambda.free [Mass/Vol] 23.7 mg/L 5.7-26.3 [facility] Ketones Auto test strip (U) [Mass/Vol]on 12-16-2023 Ketones (U) [Mass/Vol] Negative NEGATIVE [facility] Laboratory - Hematology and Cell countson 12-16-2023 Immature granulocytes/100 WBC (Bld) 0.7 % High 0.0-0.5 [facility] Leukocytes [#/volume] correc denis for nucleated erythrocytes in Blood by Automated counon 12-16-2023 WBC corrected for nucl RBC Auto (Bld) [#/Vol] 6.1 10 3/uL 4.0-11.0 [facility] Lymphocytes Auto (Bld) [#/Vo l]on 12-16-2023 Lymphocytes (Bld) [#/Vol] 1.4 10 3/uL 1.2-3.8 [facility] Lymphocytes/100 WBC Auto (Bl d)on 12-16-2023 Lymphocytes/100 WBC (Bld) 23.1 % 20.5-60.0 [facility] MCH Auto (RBC) [Entitic mass ]on 12-16-2023 MCH (RBC) [Entitic mass] 31.0 pg 25.9-34.0 [facility] MCHC Auto (RBC) [Mass/Vol]on 12-16-2023 MCHC (RBC) [Mass/Vol] 32.7 g/dL 29.9-35.2 [facility] MCV Auto (RBC) [Entitic vol] on 12-16-2023 MCV (RBC) [Entitic vol] 94.9 fL High 80.0-94.0 [facility] Monocytes Auto (Bld) [#/Vol] on 12-16-2023 Monocytes (Bld) [#/Vol] 0.8 10 3/uL 0.3-0.8 [facility] Monocytes/100 WBC Auto (Bld) on 12-16-2023 Monocytes/100 WBC (Bld) 13.3 % High 1.7-12.0 [facility] Neutrophils Auto (Bld) [#/Vo l]on 12-16-2023 Neutrophils (Bld) [#/Vol] 3.6 10 3/uL 1.4-6.5 [facility] Neutrophils/100 WBC Auto (Bl d)on 12-16-2023 Neutrophils/100 WBC (Bld) 59.9 % 43.0-75.0 [facility] No Panel Informationon 12-15 Eosinophils # (Auto) 0.2 10 3/uL 0.0-0.7 [facility] Immature Granulocyte # (Auto) 0.04 10 3/uL High 0.00-0.03 [facility] Protein Electrophoresis M-Valerio Not Observed g/dL Not Observed [facility] Protein Electrophoresis Note Comment . [facility] Comment on above: Protein electrophore sis scan will follow via computer,mail, or dramatic coach delivery. Platelet mean volume Auto (B ld) [Entitic vol]on 12-16-2023 Platelet mean volume (Bld) [Entitic vol] 9.9 fL 9.5-13.5 [facility] Platelets Auto (Bld) [#/Vol] on 12-16-2023 Platelets (Bld) [#/Vol] 230 10 3/uL 150-450 [facility] Protein Auto test strip (U) [Mass/Vol]on 12-16-2023 Protein (U) [Mass/Vol] Negative NEG/TRACE [facility] Protein [Mass/volume] in Ser um or Plasmaon 12-16-2023 Protein [Mass/Vol] 7.1 g/dL 6.0-8.5 [facility] RBC Auto (Bld) [#/Vol]on RBC (Bld) [#/Vol] 4.51 10 6/uL Low 4.70-6.10 [facility] Serum globulin measurement ( mass/volume)on 12-16-2023 Globulin (S) [Mass/Vol] 2.9 g/dL 2.2-3.9 [facility] Serum or plasma albumin/glob ulin mass ratioon 12-16-2023 Albumin/Globulin [Mass ratio] 1.5 {ratio} 0.7-1.7 [facility] Serum or plasma alpha 1 glob ulin measurement by electrophoresis (mass/volume)on 12-16-2023 Alpha 1 globulin Elph [Mass/Vol] 0.2 g/dL 0.0-0.4 [facility] Serum or plasma alpha 2 glob ulin measurement by electrophoresis (mass/volume)on 12-16-2023 Alpha 2 globulin Elph [Mass/Vol] 0.7 g/dL 0.4-1.0 [facility] Serum or plasma beta globuli n measurement by electrophoresis (mass/volume)on 12-16-2023 Beta globulin Elph [Mass/Vol] 0.8 g/dL 0.7-1.3 [facility] Serum or plasma gamma globul in measurement by electrophoresis (mass/volume)on 12-16-2023 Gamma globulin Elph [Mass/Vol] 1.1 g/dL 0.4-1.8 [facility] Serum or plasma immunoelectr ophoresis interpretationon 12-16-2023 Interpretation IEP [Interp] Comment . [facility] Comment on above: No monoclonality det ected. Specific gravity Auto test s trip (U) [Rel density]on 12-16-2023 Specific gravity (U) [Rel density] CLEAR CLEAR [facility] Urine glucose measurement by test strip (mass/volume)on 12-16-2023 Glucose Test strip (U) [Mass/Vol] Negative NEGATIVE [facility] Urine hemoglobin detection b y automated test stripon 12-16-2023 Hemoglobin Auto test strip Ql (U) Negative NEGATIVE [facility] Urine nitrite detection by a utomated test stripon 12-16-2023 Nitrite Auto test strip Ql (U) Negative NEGATIVE [facility] Urobilinogen Auto test strip (U) [Mass/Vol]on 12-16-2023 Urobilinogen Qn (U) 0.2 {Aimee'U}/dL 0.2-1.0 [facility] pH Auto test strip (U)on pH (U) 6.0 [pH] 5.0-9.0 [facility] Automated urine specific gra vity by refractometryon 12-10-2023 Specific gravity Refractometry automated (U) [Rel density] 1.015 1.005-1.025 [facility] Bilirubin Auto test strip (U ) [Mass/Vol]on 12-10-2023 Bilirubin (U) [Mass/Vol] Negative NEGATIVE [facility] Color Auto (U)on 12-10-2023 Color (U) LT. YELLOW YELLOW [facility] Estimated glomerular filtrat ion rate (GFR) non- Americanon 12-10-2023 GFR/1.73 sq M.predicted among non-blacks MDRD (S/P/Bld) [Vol rate/Area] 32 mL/min/{1.73_m2} Low >=60 [facility] Ketones Auto test strip (U) [Mass/Vol]on 12-10-2023 Ketones (U) [Mass/Vol] Negative NEGATIVE [facility] Lab Reportson 12-10-2023 Lab Reports [id number] Normal [facility] - Chemistry and C hemistry - challengeon 12-10-2023 Calcium [Mass/Vol] 9.1 mg/dL 8.5-10.1 [facility] Chloride [Moles/Vol] 102 mmol/L 98-107 [facility] CO2 [Moles/Vol] 29.9 mmol/L 21.0-32.0 [facility] Creatinine [Mass/Vol] 2.02 mg/dL High 0.70-1.30 [facility] GFR/1.73 sq M.predicted MDRD (S/P/Bld) [Vol rate/Area] 39 mL/min/{1.73_m2} Low >=60 [facility] Glucose [Mass/Vol] 92 mg/dL 74-106 [facility] Potassium [Moles/Vol] 5.1 mmol/L 3.5-5.1 [facility] Sodium [Moles/Vol] 139 mmol/L 136-145 [facility] Urea nitrogen [Mass/Vol] 29.0 mg/dL High 7.0-18.0 [facility] Urea nitrogen/Creatinine [Mass ratio] 14.4 mg/mg [facility] Protein Auto test strip (U) [Mass/Vol]on 12-10-2023 Protein (U) [Mass/Vol] Negative NEG/TRACE [facility] Serum or plasma anion gap de terminationon 12-10-2023 Anion gap [Moles/Vol] 12.2 mmol/L [facility] Specific gravity Auto test s trip (U) [Rel density]on 12-10-2023 Specific gravity (U) [Rel density] CLEAR CLEAR [facility] Urine glucose measurement by test strip (mass/volume)on 12-10-2023 Glucose Test strip (U) [Mass/Vol] Negative NEGATIVE [facility] Urine hemoglobin detection b y automated test stripon 12-10-2023 Hemoglobin Auto test strip Ql (U) Negative NEGATIVE [facility] Urine nitrite detection by a utomated test stripon 12-10-2023 Nitrite Auto test strip Ql (U) Negative NEGATIVE [facility] Urobilinogen Auto test strip (U) [Mass/Vol]on 12-10-2023 Urobilinogen Qn (U) 0.2 {Aimee'U}/dL 0.2-1.0 [facility] pH Auto test strip (U)on pH (U) 8.0 [pH] 5.0-9.0 [facility] No Panel Informationon 12-08 Prostate Specific Antigen Total 1.96 ng/mL <=4.00 [facility] Potassiumon 04-10-2023 Potassium [Moles/Vol] 4.3 mmol/L Normal 3.5-5.1 [facility] Comment on above: Result Comment: PERF ORMED BY: [place] [address] PATHOLOGIST [employer] ANGELICA SUN M.D. Performed By: #### K #### [address] Basic Metabolic Panelon 072 Anion gap [Moles/Vol] 9.5 mmol/L Normal 6.0-15.0 [facility] Comment on above: Performed By: #### C BC, BMP #### [address] Calcium [Mass/Vol] 9.2 mg/dL Normal 8.6-10.3 [facility] Comment on above: Result Comment: PERF ORMED BY: [facility] [address] [place] [address] PATHOLOGIST [employer] ANGELICA SUN M.D. Performed By: #### C BC, BMP #### [place] [address] [place] Chloride [Moles/Vol] 107 mmol/L Normal 98-107 [facility] Comment on above: Performed By: #### C BC, BMP #### [place] [address] [place] CO2 [Moles/Vol] 28.4 mmol/L Normal 21.0-31.0 [facility] Comment on above: Performed By: #### C BC, BMP #### [facility] [address] Creatinine [Mass/Vol] 1.47 mg/dL High 0.70-1.30 [facility] Comment on above: Performed By: #### C BC, BMP #### [facility] [address] [place] [address] [place] GFR/1.73 sq M.predicted MDRD (S/P/Bld) [Vol rate/Area] 49.742 mL/min/{1.73_m2} Normal [facility] Comment on above: Performed By: #### C BC, BMP #### [facility] [address] Glucose [Mass/Vol] 90 mg/dL Normal 70-100 [facility] Comment on above: Result Comment: [place] Glucose Reference Range is dependent on time and content of last meal. Glucose of more than 200 mg/dL in a nonstressed, ambulatory subject supports the diagnosis of Diabetes Mellitus. ADA recommended reference range Performed By: #### C BC, BMP #### [facility] [address] [place] [address] [place] Potassium [Moles/Vol] 5.9 mmol/L High 3.5-5.1 [facility] Comment on above: Performed By: #### C BC, BMP #### [facility] [address] [place] [address] [place] Sodium [Moles/Vol] 139 mmol/L Normal 136-145 [facility] Comment on above: Performed By: #### C BC, BMP #### [facility] [address] [place] [address] [place] Urea nitrogen [Mass/Vol] 27 mg/dL High 7-25 [facility] Comment on above: Performed By: #### C BC, BMP #### [facility] [address] [place] [address] [place] Basophils Auto (Bld) [#/Vol] Ordered By: Ryan Cornell on 03-27-2023 Basophils (Bld) [#/Vol] 0.0 10*3/uL 0.0-0.2 [facility] Basophils/100 WBC Auto (Bld) Ordered By: Ryan Cornell on 03-27-2023 Basophils/100 WBC (Bld) 0.6 % . [facility] Calcium [Mass/volume] in Ser um or PlasmaOrdered By: Ryan Cornell on 03-27-2023 Calcium [Mass/Vol] 9.2 mg/dL 8.6-10.3 [facility] Carbon dioxide, total [Moles /volume] in Serum or PlasmaOrdered By: Ryan Cornell on 03-27-2023 CO2 [Moles/Vol] 28.4 mmol/L 21.0-31.0 [facility] Chloride [Moles/volume] in S arturo or PlasmaOrdered By: Ryan Cornell on 03-27-2023 Chloride [Moles/Vol] 107 mmol/L 98-107 [facility] Complete Blood Count Auto Di ffon 03-27-2023 Basophils (Bld) [#/Vol] 0.0 10*3/uL Normal 0.0-0.2 [facility] Comment on above: Result Comment: PERF ORMED BY: [place] [address] PATHOLOGIST [employer] ANGELICA SUN M.D. Performed By: #### C BC, BMP #### [facility] [address] [place] [address] [place] Basophils/100 WBC (Bld) 0.6 % Normal . [facility] Comment on above: Performed By: #### C BC, BMP #### [facility] [address] [place] [address] [place] Eosinophils (Bld) [#/Vol] 0.2 10*3/uL Normal 0.0-0.45 [facility] Comment on above: Performed By: #### C BC, BMP #### [facility] [address] [place] [address] [place] Eosinophils/100 WBC (Bld) 3.2 % Normal . [facility] Comment on above: Performed By: #### C BC, BMP #### [facility] [address] Erythrocyte distribution width (RBC) [Ratio] 13.3 % Normal 12.0-14.8 [facility] Comment on above: Performed By: #### C BC, BMP #### [facility] [address] Hematocrit (Bld) [Volume fraction] 36.5 % Low 38.8-50.0 [facility] Comment on above: Performed By: #### C BC, BMP #### [facility] [address] Hemoglobin (Bld) [Mass/Vol] 12.3 g/dL Low 13.0-17.0 [facility] Comment on above: Performed By: #### C BC, BMP #### [facility] [address] Lymphocytes (Bld) [#/Vol] 1.6 10*3/uL Normal 1.00-4.8 [facility] Comment on above: Performed By: #### C BC, BMP #### [facility] [address] Lymphocytes/100 WBC (Bld) 24.3 % Normal . [facility] Comment on above: Performed By: #### C BC, BMP #### [facility] [address] MCH (RBC) [Entitic mass] 31.8 pg Normal 27.5-35.2 [facility] Comment on above: Performed By: #### C BC, BMP #### [facility] [address] MCV (RBC) [Entitic vol] 94.2 fL Normal 83.5-101 [facility] Comment on above: Performed By: #### C BC, BMP #### [facility] [address] Mean Corpuscular HGB Conc 33.7 g/dL Normal 32.5-35.6 [facility] Comment on above: Performed By: #### C BC, BMP #### [facility] [address] [place] [address] [place] Monocytes (Bld) [#/Vol] 0.7 10*3/uL Normal 0.0-0.8 [facility] Comment on above: Performed By: #### C BC, BMP #### [facility] [address] [place] [id number] [place] Monocytes/100 WBC (Bld) 11.1 % Normal . [facility] Comment on above: Performed By: #### C BC, BMP #### [facility] [address] [place] [address] [place] Neutrophils (Bld) [#/Vol] 3.9 10*3/uL Normal 1.8-7.7 [facility] Comment on above: Performed By: #### C BC, BMP #### [facility] [address] [place] [address] [place] Neutrophils/100 WBC (Bld) 60.8 % Normal . [facility] Comment on above: Performed By: #### C BC, BMP #### [facility] [address] [place] [address] [place] NRBC% 0.1 /100{WBC} Normal 0-0.5 [facility] Comment on above: Performed By: #### C BC, BMP #### [facility] [address] [place] [address] [place] Platelet mean volume (Bld) [Entitic vol] 7.9 fL Normal 6.6-10.1 [facility] Comment on above: Performed By: #### C BC, BMP #### [facility] [address] [place] [address] [place] Platelets (Bld) [#/Vol] 235 10*3/uL Normal 150-450 [facility] Comment on above: Performed By: #### C BC, BMP #### [facility] [address] [place] [address] [place] RBC (Bld) [#/Vol] 3.87 10*6/uL Low 3.90-5.60 [facility] Comment on above: Performed By: #### C GARRETT, BMP #### [facility] [address] [place] [address] [place] WBC (Bld) [#/Vol] 6.5 10*3/uL Normal 4.1-10.5 [facility] Comment on above: Performed By: #### C GARRETT, BMP #### [facility] [address] Creatinine [Mass/volume] in Serum or PlasmaOrdered By: Ryan Cornell on 03-27-2023 Creatinine [Mass/Vol] 1.47 mg/dL 0.70-1.30 [facility] ECG 12 lead ECGon 03-27-2023 ECG 12 lead ECG [facility] [address] [place] [address] [place] [address] Electrocardiograph Report Signed Patient: Marcelino Escobar MR#: [id number] 48 : 1950 Acct:[id number] Age/Sex: 72 / M ADM Date: 03/27/23 Loc: Room: Type: [facility] Attending Dr: Ryan Cornell MD Ordering [...] Signed By Duglas Hernandez MD 0807 Normal [facility] Eosinophils Auto (Bld) [#/Vo l]Ordered By: Ryan Cornell on 03-27-2023 Eosinophils (Bld) [#/Vol] 0.2 10*3/uL 0.0-0.45 [facility] Eosinophils/100 WBC Auto (Bl d)Ordered By: Ryan Cornell on 03-27-2023 Eosinophils/100 WBC (Bld) 3.2 % . [facility] Erythrocyte distribution wid th Auto (RBC) [Ratio]Ordered By: Ryan Cornell on 03-27-2023 Erythrocyte distribution width (RBC) [Ratio] 13.3 % 12.0-14.8 [facility] Glucose [Mass/volume] in Ser um or PlasmaOrdered By: Ryan Cornell on 03-27-2023 Glucose [Mass/Vol] 90 mg/dL 70-100 [facility] Comment on above: ADA recommended refe rence rangeRandom Glucose Reference Range is dependent on time and content of last meal. Glucose of more than 200 mg/dL in a nonstressed, ambulatory subject supports the diagnosis of Diabetes Mellitus. Hematocrit Auto (Bld) [Volum e fraction]Ordered By: Ryan Cornell on 03-27-2023 Hematocrit (Bld) [Volume fraction] 36.5 % 38.8-50.0 [facility] Hemoglobin [Mass/volume] in BloodOrdered By: Ryan Cornell on 03-27-2023 Hemoglobin (Bld) [Mass/Vol] 12.3 g/dL 13.0-17.0 [facility] Leukocytes [#/volume] correc denis for nucleated erythrocytes in Blood by Automated counOrdered By: Ryan Cornell on 03-27-2023 WBC corrected for nucl RBC Auto (Bld) [#/Vol] 6.5 10*3/uL 4.1-10.5 [facility] Lymphocytes Auto (Bld) [#/Vo l]Ordered By: Ryan Cornell on 03-27-2023 Lymphocytes (Bld) [#/Vol] 1.6 10*3/uL 1.00-4.8 [facility] Lymphocytes/100 WBC Auto (Bl d)Ordered By: Ryan Cornell on 03-27-2023 Lymphocytes/100 WBC (Bld) 24.3 % . [facility] MCH Auto (RBC) [Entitic mass ]Ordered By: Ryan Cornell on 03-27-2023 MCH (RBC) [Entitic mass] 31.8 pg 27.5-35.2 [facility] MCHC Auto (RBC) [Mass/Vol]Or dered By: Ryan Cornell on 03-27-2023 MCHC (RBC) [Mass/Vol] 33.7 g/dL 32.5-35.6 [facility] MCV Auto (RBC) [Entitic vol] Ordered By: Ryan Cornell on 03-27-2023 MCV (RBC) [Entitic vol] 94.2 fL 83.5-101 [facility] Monocytes Auto (Bld) [#/Vol] Ordered By: Ryan Cornell on 03-27-2023 Monocytes (Bld) [#/Vol] 0.7 10*3/uL 0.0-0.8 [facility] Monocytes/100 WBC Auto (Bld) Ordered By: Ryan Cornell on 03-27-2023 Monocytes/100 WBC (Bld) 11.1 % . [facility] Neutrophils Auto (Bld) [#/Vo l]Ordered By: Ryan Cornell on 03-27-2023 Neutrophils (Bld) [#/Vol] 3.9 10*3/uL 1.8-7.7 [facility] Neutrophils/100 WBC Auto (Bl d)Ordered By: Ryan Cornell on 03-27-2023 Neutrophils/100 WBC (Bld) 60.8 % . [facility] No Panel InformationOrdered By: Ryan Cornell on 03-27-2023 Estimated GFR (CKD-EPI) 49.742 mL/Min [facility] Creatinine Clearance (Chem N/A [facility] Nucleated erythrocytes [Pres ence] in Blood by Automated countOrdered By: Ryan Cornell on 03-27-2023 Nucleated RBC Auto Ql (Bld) 0.1 /100{WBC} 0-0.5 [facility] Platelet mean volume Auto (B ld) [Entitic vol]Ordered By: Ryan Cornell on 03-27-2023 Platelet mean volume (Bld) [Entitic vol] 7.9 fL 6.6-10.1 [facility] Platelets Auto (Bld) [#/Vol] Ordered By: Ryan Cornell on 03-27-2023 Platelets (Bld) [#/Vol] 235 10*3/uL 150-450 [facility] Potassium [Moles/volume] in Serum or PlasmaOrdered By: Ryan Cornell on 03-27-2023 Potassium [Moles/Vol] 5.9 mmol/L 3.5-5.1 [facility] RBC Auto (Bld) [#/Vol]Ordere d By: Ryan Cornell on 03-27-2023 RBC (Bld) [#/Vol] 3.87 10*6/uL 3.90-5.60 [facility] Serum or plasma anion gap de terminationOrdered By: Ryan Cornell on 03-27-2023 Anion gap [Moles/Vol] 9.5 mmol/L 6.0-15.0 [facility] Sodium [Moles/volume] in Ser um or PlasmaOrdered By: Ryan Cornell on 03-27-2023 Sodium [Moles/Vol] 139 mmol/L 136-145 [facility] Urea nitrogen [Mass/volume] in Serum or PlasmaOrdered By: Ryan Cornell on 03-27-2023 Urea nitrogen [Mass/Vol] 27 mg/dL 7-25 [facility] WBC Auto (Bld) [#/Vol]Ordere d By: Ryan Conrell on 03-27-2023 WBC (Bld) [#/Vol] 6.5 10*3/uL 4.1-10.5 [facility] CBC AUTO DIFFon 02-04-2023 BASO # 0.0 103/ul Normal 0.0-0.1 [facility] Comment on above: Performed By: #### C BC #### [facility] [address] [place], [place] [address] Dr. Haley Mays Basophils/100 WBC (Bld) 0.4 % Normal 0.2-2.0 [facility] Comment on above: Performed By: #### C BC #### [facility] [address] [place], [place] [address] Dr. Haley Mays EO # 0.0 103/ul Normal 0.0-0.7 [facility] Comment on above: Performed By: #### C BC #### [facility] [address] [place] [address] [address] Haley Mays Eosinophils/100 WBC (Bld) 0.5 % Critically low 0.9-7.0 [facility] Comment on above: Performed By: #### C BC #### [facility] [address] [place] [address] [address] Haley Mays Erythrocyte distribution width (RBC) [Ratio] 12.3 % Normal 11.0-15.0 [facility] Comment on above: Performed By: #### C BC #### [facility] [address] [place] [address] Dr. Haley Mays Hematocrit (Bld) [Volume fraction] 33.2 % Critically low 42.0-54.0 [facility] Comment on above: Performed By: #### C BC #### [facility] [address] [place] [address] Dr. Haley Mays Hemoglobin (Bld) [Mass/Vol] 11.6 g/dL Critically low 14.0-18.0 [facility] Comment on above: Performed By: #### C BC #### [facility] [address] [place] [address] Dr. Haley Mays IG # 0.05 10e3/ul Critically high 0.00-0.03 [facility] Comment on above: Performed By: #### C BC #### [facility] [address] [place] [address] Dr. Haley Mays IG % 0.9 % Critically high 0.0-0.5 [facility] Comment on above: Performed By: #### C BC #### [facility] [address] [place] [address] [address] Haley Mays LYMPH # 1.3 103/ul Normal 1.2-3.8 [facility] Comment on above: Performed By: #### C BC #### [facility] [address] [place] [address] Dr. Haley Mays Lymphocytes/100 WBC (Bld) 21.9 % Normal 20.5-60.0 [facility] Comment on above: Performed By: #### C BC #### [facility] [address] [place] [address] Dr. Haley Mays MANUAL DIFF REQ NO Normal [facility] Comment on above: Performed By: #### C BC #### [facility] [address] [place] [address] Dr. Haley Mays MCH (RBC) [Entitic mass] 32.0 pg Normal 25.9-34.0 [facility] Comment on above: Performed By: #### C BC #### [facility] [address] [place] [address] Dr. Haley Mays MCHC (RBC) [Mass/Vol] 34.9 g/dL Normal 29.9-35.2 [facility] Comment on above: Performed By: #### C BC #### [facility] [address] [place] [address] Dr. Haley Mays MCV (RBC) [Entitic vol] 91.5 fL Normal 80.0-94.0 [facility] Comment on above: Performed By: #### C BC #### [facility] [address] [place] [address] Dr. Haley Mays MONO # 0.7 103/ul Normal 0.3-0.8 [facility] Comment on above: Performed By: #### C BC #### [facility] [address] [place] [address] Dr. Haley Mays Monocytes/100 WBC (Bld) 11.6 % Normal 1.7-12.0 [facility] Comment on above: Performed By: #### C BC #### [facility] [address] [place] [address] Dr. Haley Mays NEUT # 3.7 103/ul Normal 1.4-6.5 [facility] Comment on above: Performed By: #### C BC #### [facility] [address] [place] [address] Dr. Haley Mays Neutrophils/100 WBC (Bld) 64.7 % Normal 43.0-75.0 [facility] Comment on above: Performed By: #### C BC #### [facility] [address] [place] [address] [address] Haley Mays Platelet mean volume (Bld) [Entitic vol] 9.1 fL Critically low 9.5-13.5 [facility] Comment on above: Performed By: #### C BC #### [facility] [address] [place] [address] Dr. Haley Mays PLT 281 103/ul Normal 150-450 [facility] Comment on above: Performed By: #### C BC #### [facility] [address] [place] [address] [address] Haley Mays RBC 3.63 106/ul Critically low 4.70-6.10 [facility] Comment on above: Performed By: #### C BC #### [facility] [address] [place] [address] Dr. Haley Mays WBC 5.7 103/ul Normal 4.0-11.0 [facility] Comment on above: Performed By: #### C BC #### [facility] [address] [place] [address] Dr. Haley Mays PROF CHEM 8 (BAS METB)on Anion gap [Moles/Vol] 15.2 mmol/L Normal [facility] Comment on above: Performed By: #### B MP #### [facility] [address] [place] [address] Dr. Haley Mays Calcium [Mass/Vol] 8.8 mg/dL Normal 8.5-10.1 [facility] Comment on above: Performed By: #### B MP #### [facility] [address] [place] [address] Dr. Haley Mays Chloride [Moles/Vol] 97 mmol/L Critically low 98-107 [facility] Comment on above: Performed By: #### B MP #### [facility] [address] [place] [address] Dr. Haley Mays CO2 [Moles/Vol] 23.5 mmol/L Normal 21.0-32.0 [facility] Comment on above: Performed By: #### B MP #### [facility] [address] [place] [address] [address] Haley Mays Creatinine [Mass/Vol] 1.44 mg/dL Critically high 0.70-1.30 [facility] Comment on above: Performed By: #### B MP #### [facility] [address] [place] [address] [address] Haley Mays EGFR-AF COMORAN 58 mL/min/1.73m2 Critically low >=60 [facility] Comment on above: Performed By: #### B MP #### [facility] [address] [place] [address] [address] Haley Mays EGFR-NON AF COMORAN 48 mL/min/1.73m2 Critically low >=60 [facility] Comment on above: Performed By: #### B MP #### [facility] [address] [place] [address] [address] Haley Mays Glucose [Mass/Vol] 129 mg/dL Critically high 74-106 T [facility] Comment on above: Performed By: #### B MP #### [facility] [address] [place] [address] [address] Haley Mays Potassium [Moles/Vol] 4.7 mmol/L Normal 3.5-5.1 [facility] Comment on above: Performed By: #### B MP #### [facility] [address] [place] [address] [address] Haley Mays Sodium [Moles/Vol] 131 mmol/L Critically low 136-145 [facility] Comment on above: Performed By: #### B MP #### [facility] [address] [place] [address] [address] Haley Mays Urea nitrogen [Mass/Vol] 16.0 mg/dL Normal 7.0-18.0 [facility] Comment on above: Performed By: #### B MP #### [facility] [address] [place] [address] [address] Haley Mays Urea nitrogen/Creatinine [Mass ratio] 11.1 mg/mg Normal [facility] Comment on above: Performed By: #### B MP #### [facility] [address] [place] [address] [address] Haley Mays XR KUB 1 VIEWon 02-04-2023 XR KUB 1 VIEW EXAMINATION: XR KUB 1 VIEW HISTORY: Pain COMPARISON: No relevant comparison available. FINDINGS: BOWEL GAS PATTERN: No abnormal dilation or deviation. CALCIFICATIONS: None significant. OTHER: Mild bilateral hip osteoarthropathy. Degenerative spondylosis. No abnormal gaseous collections. IMPRESSION: Nonobstructive bowel gas pattern Electronically authenticated by: RUSTY SILVA Date: 2023-02-04 13:57 Normal [facility] Sarath 01-23-2023 L - -------- Specimen: [id number] Received: 01/24/23 Status: TONY Silas Num: [id number] Spec Type: Surgical Subm Dr: Vaughn Pretty MD Tissues: A Stomach - Biopsy/Polyp (DUOD BX) B Colon Biopsy (RNDM COL BX) C Colon Biopsy (DESC COL POLYP) Procedures: HE/6, Gross/Micro L4/3 -------- Age/ Patient Sex Location Account Attending Physician -------- Marcelino Escobar 72/M [id number] Vaughn Pretty MD -------- SPEC NUM: [id number] RECD: 01/24/23 STATUS: TONY MCDANIEL NUM: [id number] REGINALDO: 01/23/23 DR: Vaughn Pretty MD ENTERED: 01/24/23 [facility] DR: SPEC TYPE: Surgical DEPT: S ENTERED BY: [id number] RECV BY: [id number] ORDERED: HE/6, Gross/Micro L4/3 ORDERED: HE/6, Gross/Micro [...] celiac, rule out microscopic colitis -------- Specimen: [id number] Received: 01/24/23 Status: TONY Rosen Num: [id number] Spec Type: Surgical Subm Dr: Vaughn Pretty MD Tissues: A Stomach - Biopsy/Polyp (DUOD BX) B Colon Biopsy (RNDM COL BX) C Colon Biopsy (DESC COL POLYP) Procedures: HE/6, Gross/Micro L4/3 -------- Patient: Marcelino Escobar [id number] (Continued) -------- Specimen: [id number] Received: 01/24/23 (Continued) Signed (signature on file) Pop Perez MD 01/27/23 1005 -------- Specimen: [id number] Received: 01/24/23 Status: TONY Rosen Num: [id number] Spec Type: Surgical Subm Dr: Vaughn Pretty MD Tissues: A Stomach - Biopsy/Polyp (DUOD BX) B Colon Biopsy (RNDM COL BX) C Colon Biopsy (DESC COL POLYP) Procedures: Janeth CRUZ/Micro L4/3 -------- Patient: Marcelino Escobar [id number] (Continued) -------- Specimen: [id number] Received: 01/24/23 (Continued) Gross Description A. Received [...] microscopic examination confirms the diagnosis. CPT Codes 88044?3 -------- -------- Specimen: [id number] Received: 01/24/23 Status: TONY Rosen Num: [id number] Spec Type: Surgical Subm Dr: Vaughn Pretty MD Tissues: A Stomach - Biopsy/Polyp (DUOD BX) B Colon Biopsy (RNDM COL BX) C Colon Biopsy (DESC COL POLYP) Procedures: HE/Yovanny, Gross/Micro L4/3 -------- Patient: Marcelino Escobar [id number] (Continued) -------- Signed (signature on file) Pop Peerz MD 01/27/23 1005 [facility] CBC AUTO DIFFon 01-07-2023 BASO # 0.0 103/ul Normal 0.0-0.1 [facility] Comment on above: Performed By: #### C BC #### [facility] [address] [address] [address] Haley Mays Basophils/100 WBC (Bld) 0.5 % Normal 0.2-2.0 [facility] Comment on above: Performed By: #### C BC #### [facility] [address] [address] [address] Haley Mays EO # 0.1 103/ul Normal 0.0-0.7 [facility] Comment on above: Performed By: #### C BC #### [facility] [address] [place] [address] Dr. Haley Mays Eosinophils/100 WBC (Bld) 0.8 % Critically low 0.9-7.0 [facility] Comment on above: Performed By: #### C BC #### [facility] [address] [place] [address] Dr. Haley Mays Erythrocyte distribution width (RBC) [Ratio] 12.6 % Normal 11.0-15.0 [facility] Comment on above: Performed By: #### C BC #### [facility] [address] [place] [address] Dr. Haley Mays Hematocrit (Bld) [Volume fraction] 37.7 % Critically low 42.0-54.0 [facility] Comment on above: Performed By: #### C BC #### [facility] [address] [place] [address] Dr. Haley Mays Hemoglobin (Bld) [Mass/Vol] 12.3 g/dL Critically low 14.0-18.0 [facility] Comment on above: Performed By: #### C BC #### [facility] [address] [place] [address] Dr. Haley Mays IG # 0.05 10e3/ul Critically high 0.00-0.03 [facility] Comment on above: Performed By: #### C BC #### [facility] [address] [place] [address] Dr. Haley Mays IG % 0.8 % Critically high 0.0-0.5 [facility] Comment on above: Performed By: #### C BC #### [facility] [address] [place] [address] Dr. Haley Mays LYMPH # 1.5 103/ul Normal 1.2-3.8 [facility] Comment on above: Performed By: #### C BC #### [facility] [address] [place] [address] Dr. Haley Mays Lymphocytes/100 WBC (Bld) 25.0 % Normal 20.5-60.0 [facility] Comment on above: Performed By: #### C BC #### [facility] [address] [place] [address] Dr. Haley Mays MANUAL DIFF REQ NO Normal [facility] Comment on above: Performed By: #### C BC #### [facility] [address] [place] [address] Dr. Haley Mays MCH (RBC) [Entitic mass] 31.1 pg Normal 25.9-34.0 [facility] Comment on above: Performed By: #### C BC #### [facility] [address] [place] [address] Dr. Haley Mays MCHC (RBC) [Mass/Vol] 32.6 g/dL Normal 29.9-35.2 [facility] Comment on above: Performed By: #### C BC #### [facility] [address] [place] [address] Dr. Haley Mays MCV (RBC) [Entitic vol] 95.4 fL Critically high 80.0-94 .0 [facility] Comment on above: Performed By: #### C BC #### [facility] [address] [place] [address] Dr. Haley Mays MONO # 0.7 103/ul Normal 0.3-0.8 [facility] Comment on above: Performed By: #### C BC #### [facility] [address] [place] [address] Dr. Haley Mays Monocytes/100 WBC (Bld) 11.3 % Normal 1.7-12.0 [facility] Comment on above: Performed By: #### C BC #### [facility] [address] [place] [address] Dr. Haley Mays NEUT # 3.8 103/ul Normal 1.4-6.5 [facility] Comment on above: Performed By: #### C BC #### [facility] [address] [place] [address] Dr. Haley Mays Neutrophils/100 WBC (Bld) 61.6 % Normal 43.0-75.0 [facility] Comment on above: Performed By: #### C BC #### [facility] [address] [address] [address] Haley Mays Platelet mean volume (Bld) [Entitic vol] 9.2 fL Critically low 9.5-13.5 [facility] Comment on above: Performed By: #### C BC #### [facility] [address] [address] [address] Haley Mays PLT 300 103/ul Normal 150-450 [facility] Comment on above: Performed By: #### C BC #### [facility] [address] [address] [address] Haley Mays RBC 3.95 106/ul Critically low 4.70-6.10 [facility] Comment on above: Performed By: #### C BC #### [facility] [address] [address] [address] Haley aMys WBC 6.1 103/ul Normal 4.0-11.0 [facility] Comment on above: Performed By: #### C BC #### [facility] [address] [place] [address] ABD/PELV W CONon [...] COURTNEY GILL Date: 2022-12-25 08:48 Normal [facility] Complete Blood Count and Dif kodak 12-03-2022 Anisocytosis Ql (Bld) [facility] [employer] Other Basophilic stippling LM Ql (Bld) [facility] [employer] Other RBC morphology finding Nom (Bld) [facility] [employer] Other IMMUNOGLOBULIN IGA QUANTITIA VEon 12-03-2022 Immunoglobulin A, Qn, Serum 321 mg/dL Normal 61-437 [facility] Comment on above: Performed By: #### C BC #### [facility] [address] [address] [address] Haley Mays TISSUE TRANSGLUTAMINASE IGGo n 12-03-2022 t-Transglutaminase (tTG) IgG 11 U/mL Critically high 0-5 [facility] Comment on above: Result Comment: Nega tive 0 - 5 Weak Positive 6 - 9 Positive >9 Performed By: #### T RNSIGG #### [facility] [address] [address] [address] Haley Mays TRANSGLUTAMINASE IGAon 12-03 t-Transglutaminase (tTG) IgA >100 Critically high 0-3 [facility] Comment on above: Result Comment: Nega tive 0 - 3 Weak Positive 4 - 10 Positive >10 . Tissue Transglutaminase (tTG) has been identified as the endomysial antigen. Studies have demonstr- ated that endomysial IgA antibodies have over 99% specificity for gluten sensitive enteropathy. Performed By: #### C BC #### [facility] [address] [address] [address] Haley Mays tTG IgA/IgG Transglutaminase on 12-03-2022 tTG IgA/IgG Transglutaminase [facility] [employer] Other Basic Metabolic Panelon 11-07 Anion gap [Moles/Vol] 14.2 mmol/L Normal [facility] [employer] Other Comment on above: Performed By: #### B MP #### [facility] [address] [address] [address] Haley Mays Calcium [Mass/Vol] 8.8285065 mg/dL 8.5-10 .1 mg/dL [facility] [employer] Other Chloride [Moles/Vol] 110 mmol/L Critically high 98-107 [facility] [employer] Other Comment on above: Performed By: #### B MP #### [facility] [address] [address] [address] Haley Mays CO2 [Moles/Vol] 26.94246360 mmol/L 21.0-3 2.0 mmol/L [facility] [employer] Other Creatinine [Mass/Vol] 1.44285270 mg/dL Critically high 0.70-1.30 mg/dL [place] [employer] Other Potassium [Moles/Vol] 5.14899278 mmol/L Critically hig h 3.5-5.1 mmol/L [facility] [employer] Other Urea nitrogen [Mass/Vol] 25.9344822 mg/dL Critically high 7.0-18.0 mg/dL [employer] Other Urea nitrogen/Creatinine [Mass ratio] 18.8 mg/mg Normal [facility] [employer] Other Comment on above: Performed By: #### B MP #### [facility] [address] [address] [address] Haley Mays Basic Metabolic Panel see note [facility] [employer] Other Basic Metabolic Panel 145 mmol/L 136-14 5 mmol/L [employer] [facility] [employer] Other Basic Metabolic Panel 106 mg/dL 74-106 mg/dL [employer] Other Basic Metabolic Panel 53 mL/min/1.73m2 Critically low >=60 mL/min/1.73 m2 [employer] Other Basic Metabolic Panel >60 mL/min/1.73m2 > =60 mL/min/1.73 m2 [employer] Other CBC AUTO DIFFon 12-02-2022 BASO # 0.0 103/ul Normal 0.0-0.1 [facility] Comment on above: Performed By: #### C BC #### [facility] [address] [place] [address] Dr. Haley Mays Basophils/100 WBC (Bld) 0.3 % Normal 0.2-2.0 [facility] Comment on above: Performed By: #### C BC #### [facility] [address] [place] [address] Dr. Haley Mays EO # 0.1 103/ul Normal 0.0-0.7 [facility] Comment on above: Performed By: #### C BC #### [facility] [address] [place] [address] Dr. Haley Mays Eosinophils/100 WBC (Bld) 1.6 % Normal 0.9-7.0 [facility] Comment on above: Performed By: #### C BC #### [facility] [address] [place] [address] Dr. Haley Mays Erythrocyte distribution width (RBC) [Ratio] 12.9 % Normal 11.0-15.0 [facility] Comment on above: Performed By: #### C BC #### [facility] [address] [place] [address] Dr. Haley Mays Hematocrit (Bld) [Volume fraction] 36.7 % Critically low 42.0-54.0 [facility] Comment on above: Performed By: #### C BC #### [facility] [id number] Haley Mays Hemoglobin (Bld) [Mass/Vol] 11.9 g/dL Critically low 14.0-18.0 [facility] Comment on above: Performed By: #### C BC #### [facility] [address] [address] [address] Haley Mays IG # 0.07 10e3/ul Critically high 0.00-0.03 [facility] Comment on above: Performed By: #### C BC #### [facility] [address] [address] [address] Haley Mays IG % 1.2 % Critically high 0.0-0.5 [facility] Comment on above: Performed By: #### C BC #### [facility] [address] [place] [address] Dr. Haley Mays LYMPH # 1.4 103/ul Normal 1.2-3.8 [facility] Comment on above: Performed By: #### C BC #### [facility] [address] [place] [address] Dr. Haley Mays Lymphocytes/100 WBC (Bld) 23.4 % Normal 20.5-60.0 [facility] Comment on above: Performed By: #### C BC #### [facility] [address] [place] [address] Dr. Haley Mays MANUAL DIFF REQ NO Normal [facility] Comment on above: Performed By: #### C BC #### [facility] [address] [address] [address] Haley Mays MCH (RBC) [Entitic mass] 30.7 pg Normal 25.9-34.0 [facility] Comment on above: Performed By: #### C BC #### [facility] [address] [place] [address] Dr. Haley Mays MCHC (RBC) [Mass/Vol] 32.4 g/dL Normal 29.9-35.2 [facility] Comment on above: Performed By: #### C BC #### [facility] [address] [address] [address] Haley Mays MCV (RBC) [Entitic vol] 94.6 fL Critically high 80.0-94 .0 [facility] Comment on above: Performed By: #### C BC #### [facility] [address] [place] [address] Dr. Haley Mays MONO # 0.7 103/ul Normal 0.3-0.8 [facility] Comment on above: Performed By: #### C BC #### [facility] [address] [place] [address] Dr. Haley Mays Monocytes/100 WBC (Bld) 11.5 % Normal 1.7-12.0 [facility] Comment on above: Performed By: #### C BC #### [facility] [address] [place] [address] Dr. Haley Mays NEUT # 3.8 103/ul Normal 1.4-6.5 [facility] Comment on above: Performed By: #### C BC #### [facility] [address] [place] [address] Dr. Haley Mays Neutrophils/100 WBC (Bld) 62.0 % Normal 43.0-75.0 [facility] Comment on above: Performed By: #### C BC #### [facility] [address] [place] [address] Dr. Haley Mays Platelet mean volume (Bld) [Entitic vol] 9.4 fL Critically low 9.5-13.5 [facility] Comment on above: Performed By: #### C BC #### [facility] [address] [place] [address] Dr. Haley Mays PLT 269 103/ul Normal 150-450 [facility] Comment on above: Performed By: #### C BC #### [facility] [address] [place], [place] [address] Dr. Haley Mays RBC 3.88 106/ul Critically low 4.70-6.10 [facility] Comment on above: Performed By: #### C BC #### [facility] [address] [place] [address] Dr. Haley Mays WBC 6.1 103/ul Normal 4.0-11.0 [facility] Comment on above: Performed By: #### C BC #### [facility] [address] [address] [address] Haley Mays FERRITINon 12-02-2022 Ferritin [Mass/Vol] 57.0 ng/mL Normal 26.0-388.0 [facility] Comment on above: Performed By: #### C BC #### [facility] [address] [address] [address] Haley Mays Ferritin [Mass/Vol] 57.6878998 ng/mL 26.0 -388.0 ng/mL [facility] [employer] Other IRON AND TIBCon 12-02-2022 % SATURATION 34.5 % Normal [facility] Comment on above: Performed By: #### C BC #### [facility] [address] [address] [address] Haley Mays Iron [Mass/Vol] 88.0 ug/dL Normal 65.0-175.0 [facility] Comment on above: Performed By: #### C BC #### [facility] [address] [address] [address] Haley Mays TIBC DIRECT 255.0 ug/dL Normal 250.0-450.0 [facility] Comment on above: Performed By: #### C BC #### [facility] [address] [place] [address] Dr. Haley Mays Iron [Mass/Vol] 88.0803372 ug/dL 65.0-175 .0 ug/dL [employer] Other IRON AND TIBC 255.0 ug/dL 250.0-450.0 ug/dL [employer] Other IRON AND TIBC 34.5 % [employer] Other PROF CHEM 8 (BAS METB)on Calcium [Mass/Vol] 8.7 mg/dL Normal 8.5-10.1 [facility] Comment on above: Performed By: #### B MP #### [facility] [address] [address] [address] Haley Mays CO2 [Moles/Vol] 26.0 mmol/L Normal 21.0-32.0 [facility] Comment on above: Performed By: #### B MP #### [facility] [address] [address] [address] Haley Mays Creatinine [Mass/Vol] 1.33 mg/dL Critically high 0.70-1.30 [facility] Comment on above: Performed By: #### B MP #### [facility] [address] [address] [address] Haley Mays EGFR-AF COMORAN >60 Normal >=60 [facility] Comment on above: Performed By: #### B MP #### [facility] [address] [address] [address] Haley Mays EGFR-NON AF COMORAN 53 mL/min/1.73m2 Critically low >=60 [facility] Comment on above: Performed By: #### B MP #### [facility] [address] [address] [address] Haley Mays Glucose [Mass/Vol] 106 mg/dL Normal 74-106 [facility] Comment on above: Performed By: #### B MP #### [facility] [address] [address] [address] Haley Mays Potassium [Moles/Vol] 5.2 mmol/L Critically high 3.5-5.1 [facility] Comment on above: Performed By: #### B MP #### [facility] [address] [address] [address] Haley Mays Sodium [Moles/Vol] 145 mmol/L Normal 136-145 [facility] Comment on above: Performed By: #### B MP #### [facility] [address] [address] [address] Haley Mays Urea nitrogen [Mass/Vol] 25.0 mg/dL Critically high 7.0-18.0 [facility] Comment on above: Performed By: #### B MP #### [facility] [address] [place] [address] Dr. Haley Mays VIT B12 AND FOLATEon 023 FOLATE 19.60 ng/mL Normal 8.60-58.90 [facility] Comment on above: Performed By: #### C BC #### [facility] [address] [place] [address] Dr. Haley Mays Cobalamin (Vitamin B12) [Mass/Vol] pg/mL Critically high 193.0-986.0 [employer] Other Comment on above: Performed By: #### C BC #### [facility] [address] [place] [address] Dr. Haley Mays VIT B12 AND FOLATE 19.60 ng/mL 8.60-58.9 0 ng/mL [employer] Other CBC AUTO DIFFon 09-20-2022 BASO # 0.0 103/ul Normal 0.0-0.1 [facility] Comment on above: Performed By: #### C BC #### [facility] [address] [place] [address] Dr. Haley Mays Basophils/100 WBC (Bld) 0.3 % Normal 0.2-2.0 [facility] Comment on above: Performed By: #### C BC #### [facility] [address] [place] [address] Dr. Haley Mays EO # 0.1 103/ul Normal 0.0-0.7 [facility] Comment on above: Performed By: #### C BC #### [facility] [address] [place] [address] Dr. Haley Mays Eosinophils/100 WBC (Bld) 1.4 % Normal 0.9-7.0 [facility] Comment on above: Performed By: #### C BC #### [facility] [address] [place] [address] Dr. Haley Mays Erythrocyte distribution width (RBC) [Ratio] 12.9 % Normal 11.0-15.0 [facility] Comment on above: Performed By: #### C BC #### [facility] [address] [place] [address] Dr. Haley Mays Hematocrit (Bld) [Volume fraction] 39.5 % Critically low 42.0-54.0 [facility] Comment on above: Performed By: #### C BC #### [facility] [address] [place] [address] Dr. Haley Mays Hemoglobin (Bld) [Mass/Vol] 11.9 g/dL Critically low 14.0-18.0 [facility] Comment on above: Performed By: #### C BC #### [facility] [address] [place] [address] Dr. Haley Mays IG # 0.06 10e3/ul Critically high 0.00-0.03 [facility] Comment on above: Performed By: #### C BC #### [facility] [address] [place] [address] Dr. Haley Mays IG % 0.9 % Critically high 0.0-0.5 [facility] Comment on above: Performed By: #### C BC #### [facility] [address] [place] [address] Dr. Haley Mays LYMPH # 1.7 103/ul Normal 1.2-3.8 [facility] Comment on above: Performed By: #### C BC #### [facility] [address] [place] [address] Dr. Haley Mays Lymphocytes/100 WBC (Bld) 25.6 % Normal 20.5-60.0 [facility] Comment on above: Performed By: #### C BC #### [facility] [address] [place] [address] Dr. Haley Mays MANUAL DIFF REQ NO Normal [facility] Comment on above: Performed By: #### C BC #### [facility] [address] [place] [address] Dr. Haley Mays MCH (RBC) [Entitic mass] 31.4 pg Normal 25.9-34.0 [facility] Comment on above: Performed By: #### C BC #### [facility] [address] [place] [address] Dr. Haley Mays MCHC (RBC) [Mass/Vol] 30.1 g/dL Normal 29.9-35.2 [facility] Comment on above: Performed By: #### C BC #### [facility] [address] [address] [address] Haley Mays MCV (RBC) [Entitic vol] 104.2 fL Critically high 80.0-94 .0 [facility] Comment on above: Performed By: #### C BC #### [facility] [address] [address] [address] Haley Mays MONO # 0.9 103/ul Critically high 0.3-0.8 [facility] Comment on above: Performed By: #### C BC #### [facility] [address] [place] [address] Dr. Haley Mays Monocytes/100 WBC (Bld) 14.0 % Critically high 1.7-12. 0 [facility] Comment on above: Performed By: #### C BC #### [facility] [address] [place] [address] Dr. Haley Mays NEUT # 3.7 103/ul Normal 1.4-6.5 [facility] Comment on above: Performed By: #### C BC #### [facility] [address] [place] [address] Dr. Haley Mays Neutrophils/100 WBC (Bld) 57.8 % Normal 43.0-75.0 [facility] Comment on above: Performed By: #### C BC #### [facility] [address] [place] [address] Dr. Haley Mays Platelet mean volume (Bld) [Entitic vol] 9.6 fL Normal 9.5-13.5 [facility] Comment on above: Performed By: #### C BC #### [facility] [address] [place] [address] Dr. Haley Mays PLT 291 103/ul Normal 150-450 [facility] Comment on above: Performed By: #### C BC #### [facility] [address] [place] [address] Dr. Haley Mays RBC 3.79 106/ul Critically low 4.70-6.10 [facility] Comment on above: Performed By: #### C BC #### [facility] [address] [address] [address] Haley Mays WBC 6.4 103/ul Normal 4.0-11.0 [facility] Comment on above: Performed By: #### C BC #### [facility] [address] [address] [address] Haley Mays LIPID PROFILEon 09-20-2022 CHOL-HDL RATIO NORM SEE BELOW Normal [facility] Comment on above: Result Comment: 3.3 - 4.4 LOW RISK 4.4 - 7.1 AVERAGE RISK 7.1 - 11.0 MODERATE RISK >11.0 HIGH RISK Performed By: #### L IPID, BMP, ALT #### [facility] [address] [address] [address] Haley Mays Cholesterol [Mass/Vol] 123 mg/dL Normal <=200 [facility] Comment on above: Performed By: #### L IPID, BMP, ALT #### [facility] [address] [address] [address] Haley Mays Cholesterol in HDL [Mass/Vol] 26 mg/dL Critically low 40-60 [facility] Comment on above: Performed By: #### L IPID, BMP, ALT #### [facility] [address] [address] [address] Haley Mays Cholesterol in LDL [Mass/Vol] 57.6 mg/dL Normal [facility] Comment on above: Performed By: #### L IPID, BMP, ALT #### [facility] [address] [address] [address] Haley Mays Cholesterol.total/Tri sterol in HDL [Mass ratio] 4.7 {ratio} Normal [facility] Comment on above: Performed By: #### L IPID, BMP, ALT #### [facility] [address] [address] [address] Haley Mays HDL NORMAL > or = 60 mg/dl - LO W CARDIOVASCULAR RISK <40 mg/dl - HIGH CARDIOVASCULAR RISK Normal [facility] Comment on above: Performed By: #### L IPID, BMP, ALT #### [facility] [address] [address] [address] Haley Mays LDL CALC NORMAL SEE BELOW Normal [facility] Comment on above: Result Comment: <100 mg/dl OPTIMAL 100 - 129 mg/dl NEAR OR ABOVE OPTIMAL 130 - 159 mg/dl BORDERLINE HIGH 160 - 189 mg/dl HIGH >190 mg/dl VERY HIGH Performed By: #### L IPID, BMP, ALT #### [facility] [address] [address] [address] Haley Mays Triglyceride [Mass/Vol] 197 mg/dL Critically high <=150 [facility] Comment on above: Performed By: #### L IPID, BMP, ALT #### [facility] [address] [address] [address] Haley Mays VLDL CALC 39.4 mg/dL Normal [facility] Comment on above: Performed By: #### L IPID, BMP, ALT #### [facility] [address] [address] [address] Haley Mays PROF CHEM 8 (BAS METB)on Anion gap [Moles/Vol] 13.9 mmol/L Normal [facility] Comment on above: Performed By: #### L IPID, BMP, ALT #### [facility] [address] [address] [address] Haley Mays Calcium [Mass/Vol] 8.6 mg/dL Normal 8.5-10.1 [facility] Comment on above: Performed By: #### L IPID, BMP, ALT #### [facility] [address] [address] [address] Haley Mays Chloride [Moles/Vol] 105 mmol/L Normal 98-107 [facility] Comment on above: Performed By: #### L IPID, BMP, ALT #### [facility] [address] [address] [address] Haley Mays CO2 [Moles/Vol] 25.1 mmol/L Normal 21.0-32.0 [facility] Comment on above: Performed By: #### L IPID, BMP, ALT #### [facility] [address] [address] [address] Haley Mays Creatinine [Mass/Vol] 1.47 mg/dL Critically high 0.70-1.30 [facility] Comment on above: Performed By: #### L IPID, BMP, ALT #### [facility] [address] [place] [address] Dr. Haley Mays EGFR-AF COMORAN 57 mL/min/1.73m2 Critically low >=60 [facility] Comment on above: Performed By: #### L IPID, BMP, ALT #### [facility] [address] [place] [address] Dr. Haley Mays EGFR-NON AF COMORAN 47 mL/min/1.73m2 Critically low >=60 [facility] Comment on above: Performed By: #### L IPID, BMP, ALT #### [facility] [address] [address] [address] Haley Mays Glucose [Mass/Vol] 71 mg/dL Critically low 74-106 [facility] Comment on above: Performed By: #### L IPID, BMP, ALT #### [facility] [address] [place] [address] Dr. Haley Mays Potassium [Moles/Vol] 5.0 mmol/L Normal 3.5-5.1 [facility] Comment on above: Performed By: #### L IPID, BMP, ALT #### [facility] [address] [place] [address] Dr. Haley Mays Sodium [Moles/Vol] 139 mmol/L Normal 136-145 [facility] Comment on above: Performed By: #### L IPID, BMP, ALT #### [facility] [address] [place] [address] Dr. Haley Mays Urea nitrogen [Mass/Vol] 27.0 mg/dL Critically high 7.0-18.0 [facility] Comment on above: Performed By: #### L IPID, BMP, ALT #### [facility] [address] [place], [place] [address] Dr. Haley Mays Urea nitrogen/Creatinine [Mass ratio] 18.4 mg/mg Normal [facility] Comment on above: Performed By: #### L IPID, BMP, ALT #### [facility] [address] [place], [place] [address] Dr. Haley Mays SGPTon 09-20-2022 ALT [Catalytic activity/Vol] 37 U/L Normal 16-63 [facility] Comment on above: Performed By: #### L IPID, BMP, ALT #### [facility] [address] [place], [place] [address] Dr. Haley Mays Vital Signs Date Time Vital Sign Value Performing Clinician Facility 08-31-2024 08:55-0500 Body height 180.34 cm [facility] 08-31-2024 08:55-0500 Body mass index (BMI) [Ratio] 26.4 kg/m2 [facility] 08-31-2024 08:55-0500 Body weight 85.95 kg [facility] 08-31-2024 08:55-0500 Diastolic blood pressure 89 mm[Hg] [facility] 08-31-2024 08:55-0500 Heart rate 80 /min [facility] 08-31-2024 08:55-0500 Respiratory rate 12 /min [facility] 08-31-2024 08:55-0500 Systolic blood pressure 139 mm[Hg] [facility] 08-30-2024 10:22-0500 Diastolic blood pressure 76 mm[Hg] Ashkan Pacheco MD [facility] 08-30-2024 10:22-0500 Systolic blood pressure 138 mm[Hg] Ashkan Pacheco MD [facility] 07-01-2024 11:57-0400 Body height 180.34 cm [facility] 07-01-2024 11:57-0400 Body mass index (BMI) [Ratio] 25.7 kg/m2 [facility] 07-01-2024 11:57-0400 Body temperature 97.5 [degF] [facility] 07-01-2024 11:57-0400 Body weight 83.51 kg [facility] 07-01-2024 11:57-0400 Diastolic blood pressure 92 mm[Hg] [facility] 07-01-2024 11:57-0400 Heart rate 76 /min [facility] 07-01-2024 11:57-0400 Respiratory rate 16 /min [facility] 07-01-2024 11:57-0400 SaO2% (BldA) [Mass fraction] 96 % [facility] 07-01-2024 11:57-0400 Systolic blood pressure 139 mm[Hg] [facility] 05-03-2024 09:42-0400 Body height 180.34 cm [facility] 05-03-2024 09:42-0400 Body mass index (BMI) [Ratio] 25.4 kg/m2 [facility] 05-03-2024 09:42-0400 Body weight 82.55 kg [facility] 05-03-2024 09:42-0400 Diastolic blood pressure 78 mm[Hg] [facility] 05-03-2024 09:42-0400 Heart rate 82 /min [facility] 05-03-2024 09:42-0400 Systolic blood pressure 126 mm[Hg] [facility] 04-01-2024 14:13-0400 Body height 180.34 cm [facility] 04-01-2024 14:13-0400 Body mass index (BMI) [Ratio] 25.1 kg/m2 [facility] 04-01-2024 14:13-0400 Body temperature 97.8 [degF] [facility] 04-01-2024 14:13-0400 Body weight 81.76 kg [facility] 04-01-2024 14:13-0400 Diastolic blood pressure 80 mm[Hg] [facility] 04-01-2024 14:13-0400 Heart rate 74 /min [facility] 04-01-2024 14:13-0400 Respiratory rate 18 /min [facility] 04-01-2024 14:13-0400 SaO2% (BldA) [Mass fraction] 99 % [facility] 04-01-2024 14:13-0400 Systolic blood pressure 122 mm[Hg] [facility] 03-18-2024 14:22-0400 Body height 180.34 cm [facility] 03-18-2024 14:22-0400 Body mass index (BMI) [Ratio] 25.5 kg/m2 [facility] 03-18-2024 14:22-0400 Body temperature 98.5 [degF] [facility] 03-18-2024 14:22-0400 Body weight 83 kg [facility] 03-18-2024 14:22-0400 Diastolic blood pressure 75 mm[Hg] [facility] 03-18-2024 14:22-0400 Heart rate 67 /min [facility] 03-18-2024 14:22-0400 Respiratory rate 16 /min [facility] 03-18-2024 14:22-0400 SaO2% (BldA) [Mass fraction] 97 % [facility] 03-18-2024 14:22-0400 Systolic blood pressure 125 mm[Hg] [facility] 01-01-2024 09:13-0400 Body height 182.88 cm [facility] 01-01-2024 09:13-0400 Body mass index (BMI) [Ratio] 24.7 kg/m2 [facility] 01-01-2024 09:13-0400 Body weight 82.61 kg [facility] 01-01-2024 09:13-0400 Diastolic blood pressure 87 mm[Hg] [facility] 01-01-2024 09:13-0400 Heart rate 81 /min [facility] 01-01-2024 09:13-0400 Respiratory rate 16 /min [facility] 01-01-2024 09:13-0400 Systolic blood pressure 136 mm[Hg] [facility] 12-22-2023 14:12-0400 Blood Pressure Location Graham VELAQZUEZ [facility] 12-22-2023 14:12-0400 Body temperature 98.6 [degF] Graham VELAZQUEZ [facility] 12-22-2023 14:12-0400 Diastolic blood pressure 87 mm[Hg] Graham VELAZQUEZ [facility] 12-22-2023 14:12-0400 Heart rate 75 /min Graham VELAZQUEZ [facility] 12-22-2023 14:12-0400 Respiratory rate 16 /min Graham VELAZQUEZ [facility] 12-22-2023 14:12-0400 Systolic blood pressure 138 mm[Hg] Graham VELAZQUEZ [facility] 11-05-2023 11:43-0500 Body height 182.88 cm [facility] 11-05-2023 11:43-0500 Body mass index (BMI) [Ratio] 24.5 kg/m2 [facility] 11-05-2023 11:43-0500 Body weight 82.1 kg [facility] 11-05-2023 11:43-0500 Diastolic blood pressure 83 mm[Hg] [facility] 11-05-2023 11:43-0500 Heart rate 87 /min [facility] 11-05-2023 11:43-0500 Respiratory rate 12 /min [facility] 11-05-2023 11:43-0500 Systolic blood pressure 158 mm[Hg] [facility] 09-19-2023 09:30-0500 Body height 182.88 cm Anirudh Ball Other [facility] 09-19-2023 09:30-0500 Body mass index (BMI) [Ratio] 23.62 kg/m2 Anirudh Ball Other [facility] [employer] Other 09-19-2023 09:30-0500 Body weight 79.02 kg Anirudh Ball Other [facility] [employer] Other 09-19-2023 09:30-0500 Body weight 79.01 kg [facility] 09-19-2023 09:30-0500 Diastolic blood pressure 80 mm[Hg] Anirudh Ball Other [facility] 09-19-2023 09:30-0500 Respiratory rate 12 /min Anirudh Ball Other [facility] [employer] Other 09-19-2023 09:30-0500 Systolic blood pressure 135 mm[Hg] Anirudh Ball Other [facility] 08-20-2023 08:45-0500 Body height 182.88 cm Anirudh Ball Other [facility] 08-20-2023 08:45-0500 Body mass index (BMI) [Ratio] 22.62 kg/m2 Anirudh Ball Other [facility] [employer] Other 08-20-2023 08:45-0500 Body weight 75.66 kg Anirudh Ball Other [facility] [employer] Other 08-20-2023 08:45-0500 Body weight 75.65 kg [facility] 08-20-2023 08:45-0500 Diastolic blood pressure 93 mm[Hg] Anirudh Ball Other [facility] 08-20-2023 08:45-0500 Respiratory rate 12 /min Anirudh Ball Other [facility] [employer] Other 08-20-2023 08:45-0500 Systolic blood pressure 177 mm[Hg] Anirudh Ball Other [facility] 04-17-2023 11:00-0400 Body height 182.88 cm Nairudh Ball Other [facility] [employer] Other 04-17-2023 11:00-0400 Body mass index (BMI) [Ratio] 22.51 kg/m2 Anirudh Ball Other [employer] Other 04-17-2023 11:00-0400 Body weight 75.3 kg Anirudh Ball Other [employer] Other 04-17-2023 11:00-0400 Diastolic blood pressure 76 mm[Hg] Anriudh Ball Other [employer] Other 04-17-2023 11:00-0400 Systolic blood pressure 144 mm[Hg] Anirudh Ball Other [employer] Other 04-14-2023 14:00-0400 Body height 182.88 cm Imad Asaad Other [employer] Other 04-14-2023 14:00-0400 Body mass index (BMI) [Ratio] 22.38 kg/m2 Imad Asaad Other [employer] Other 04-14-2023 14:00-0400 Body weight 74.84 kg Imad Asaad Other [employer] Other 04-14-2023 14:00-0400 Diastolic blood pressure 85 mm[Hg] Imad Asaad Other [employer] Other 04-14-2023 14:00-0400 Systolic blood pressure 149 mm[Hg] Imad Asaad Other [employer] Other 02-05-2023 09:30-0400 Body height 182.88 cm Anirudh Ball Other [employer] Other 02-05-2023 09:30-0400 Body mass index (BMI) [Ratio] 20.67 kg/m2 Anirudh Ball Other [employer] Other 02-05-2023 09:30-0400 Body weight 69.13 kg Anirudh Ball Other [facility] [employer] Other 02-05-2023 09:30-0400 Diastolic blood pressure 74 mm[Hg] Anirudh Ball Other [facility] [employer] Other 02-05-2023 09:30-0400 Respiratory rate 12 /min Anirudh Ball Other [facility] [employer] Other 02-05-2023 09:30-0400 Systolic blood pressure 129 mm[Hg] Anirudh Ball Other [facility] [employer] Other 01-23-2023 16:15-0400 Diastolic blood pressure 88 mm[Hg] DO Anirudh Ball Work Phone: [facility] 01-23-2023 16:15-0400 Heart rate 68 /min DO Anirudh Ball Work Phone: [facility] 01-23-2023 16:15-0400 Respiratory rate 16 /min DO Anirudh Ball Work Phone: [facility] 01-23-2023 16:15-0400 SaO2% (BldA) [Mass fraction] 99 % DO Anirudh Ball Work Phone: [facility] 01-23-2023 16:15-0400 Systolic blood pressure 128 mm[Hg] DO Anirudh Ball Work Phone: [facility] 01-23-2023 13:44-0400 Body height 180.34 cm DO Anirudh Ball Work Phone: [facility] 01-23-2023 13:44-0400 Body weight 69.39 kg DO Anirudh Ball Work Phone: [facility] 01-06-2023 14:15-0400 Body height 182.88 cm Imad Asaad Other [facility] [employer] Other 01-06-2023 14:15-0400 Body mass index (BMI) [Ratio] 21.7 kg/m2 Imad Asaad Other [employer] Other 01-06-2023 14:15-0400 Body weight 72.58 kg Imad Asaad Other [employer] Other 01-06-2023 14:15-0400 Diastolic blood pressure 84 mm[Hg] Imad Asaad Other [employer] Other 01-06-2023 14:15-0400 Systolic blood pressure 150 mm[Hg] Imad Asaad Other [employer] Other 12-18-2022 12:30-0400 Body height 182.88 cm Anirudh Ball Other [employer] Other 12-18-2022 12:30-0400 Body mass index (BMI) [Ratio] 21.62 kg/m2 Anirudh Ball Other [employer] Other 12-18-2022 12:30-0400 Body weight 72.3 kg Anirudh Ball Other [employer] Other 12-18-2022 12:30-0400 Diastolic blood pressure 69 mm[Hg] Anirudh Ball Other [employer] Other 12-18-2022 12:30-0400 Respiratory rate 12 /min Anirudh Ball Other [employer] Other 12-18-2022 12:30-0400 Systolic blood pressure 114 mm[Hg] Anirudh Ball Other [employer] Other 12-02-2022 11:00-0400 Body height 182.88 cm Anirudh Ball Other [employer] Other 12-02-2022 11:00-0400 Body mass index (BMI) [Ratio] 21.64 kg/m2 Anirudh Ball Other [employer] Other 12-02-2022 11:00-0400 Body weight 72.39 kg Anirudh Ball Other [employer] Other 12-02-2022 11:00-0400 Diastolic blood pressure 83 mm[Hg] Anirudh Ball Other [employer] Other 12-02-2022 11:00-0400 Respiratory rate 12 /min Anirudh Ball Other [employer] Other 12-02-2022 11:00-0400 Systolic blood pressure 149 mm[Hg] Anirudh Ball Other [employer] Other 11-25-2022 08:34-0400 Blood Pressure Location Grahamhoa VELAZQUEZ [facility] 11-25-2022 08:34-0400 Diastolic blood pressure 74 mm[Hg] Graham VELAZQUEZ [facility] 11-25-2022 08:34-0400 Heart rate 69 /min Graham VELAZQUEZ [facility] 11-25-2022 08:34-0400 Respiratory rate 16 /min Graham VELAZQUEZ [facility] 11-25-2022 08:34-0400 Systolic blood pressure 137 mm[Hg] Graham VELAZQUEZ [facility] 09-20-2022 09:30-0500 Body height 182.88 cm Anirudh Ball Other [facility] Other 09-20-2022 09:30-0500 Body mass index (BMI) [Ratio] 22.46 kg/m2 Anirudh Ball Other [employer] Other 09-20-2022 09:30-0500 Body weight 75.12 kg Anirudh Ball Other [employer] Other 09-20-2022 09:30-0500 Diastolic blood pressure 62 mm[Hg] Anirudh [employer] Other [employer] Other 09-20-2022 09:30-0500 Respiratory rate 12 /min Anirud[employer] Other [employer] Other 09-20-2022 09:30-0500 Systolic blood pressure 118 mm[Hg] Anirudh [employer] Other [employer] Other Encounters Encounter Date Encounter Type Care Provider Facility Start: 12-27-2024 ambulatory Graham Richardsi ty:KAY James Start: 12-20-2024 ambulatory Graham Richardsi ty:KAY James Start: 11-30-2024 End: 11-30-2024 ambulatory [facility] Work Phone: Start: 11-30-2024 End: 11-30-2024 Patient encounter procedure [facility] Work Phone: Start: 2024 End: 2024 ambulatory [facility] Work Phone: Start: 2024 End: 2024 Patient encounter procedure [facility] Work Phone: Start: 10-14-2024 Non-patient / Non-visit [facility] Work Phone: Start: 09-20-2024 End: 09-20-2024 ambulatory [facility] Work Phone: Start: 09-20-2024 End: 09-20-2024 Patient encounter procedure [facility] Physician [facility] Work Phone: Start: 09-02-2024 Non-patient / Non-visit [facility] Work Phone: Start: 08-31-2024 End: 08-31-2024 Patient encounter procedure [facility] Physician [facility] Work Phone: Start: 08-30-2024 End: 08-30-2024 Ashkan Pacheco Work Phone: [facility] Start: 08-30-2024 ambulatory Ashkan Pacheco [facility] Start: 08-18-2024 End: 08-18-2024 Patient encounter procedure [facility] Physician [facility] Work Phone: Start: 07-19-2024 End: 07-19-2024 ambulatory [facility] Work Phone: Start: 07-19-2024 End: 07-19-2024 Patient encounter procedure [facility] Physician [facility] Work Phone: Start: 07-01-2024 End: 07-01-2024 ambulatory [facility] Work Phone: Start: 07-01-2024 End: 07-01-2024 Patient encounter procedure [facility] Physician [facility] Work Phone: Start: 06-22-2024 Non-patient / Non-visit [facility] Physician [facility] [place] Work Phone: Start: 06-18-2024 End: 06-18-2024 ambulatory [facility] Work Phone: Start: 06-18-2024 End: 06-18-2024 Patient encounter procedure [facility] Physician [facility] Work Phone: Start: 06-07-2024 End: 06-07-2024 Ashkan Al Bryonweiki Work Phone: [facility] Start: 06-07-2024 ambulatory Ashkan Al Shweiki [facility] Start: 05-31-2024 End: 05-31-2024 Ashkan Al Shweiki Work Phone: [facility] Start: 05-31-2024 ambulatory Ashkan Al Shweiki [facility] Start: 05-19-2024 End: 05-19-2024 ambulatory [facility] Work Phone: Start: 05-19-2024 End: 05-19-2024 Patient encounter procedure [facility] Work Phone: Start: 05-03-2024 End: 05-03-2024 ambulatory [facility] Work Phone: Start: 05-03-2024 End: 05-03-2024 Patient encounter procedure [facility] Physician [facility] Work Phone: Start: 04-30-2024 End: 04-30-2024 Office outpatient visit 25 minutes Ashkan Al Bryonweiki Work Phone: [facility] Start: 04-30-2024 ambulatory Ashkan Al Bryonweiki [facility] Start: 04-07-2024 End: 04-07-2024 ambulatory [facility] Work Phone: Start: 04-07-2024 End: 04-07-2024 Patient encounter procedure [facility] Physician [facility] Work Phone: Start: 04-01-2024 End: 04-01-2024 ambulatory [facility] Work Phone: Start: 04-01-2024 End: 04-01-2024 Patient encounter procedure [facility] Work Phone: Start: 03-19-2024 Non-patient / Non-visit [facility] Physician [facility] [place] Work Phone: Start: 03-18-2024 End: 03-18-2024 ambulatory [facility] Work Phone: Start: 03-18-2024 End: 03-18-2024 Patient encounter procedure [facility] Physician [facility] Work Phone: Start: 03-04-2024 End: 03-04-2024 ambulatory [facility] Work Phone: Start: 03-04-2024 End: 03-04-2024 Patient encounter procedure [facility] Physician [facility] Work Phone: Start: 01-29-2024 End: 01-29-2024 ambulatory [facility] Work Phone: Start: 01-29-2024 End: 01-29-2024 Patient encounter procedure [facility] Physician [facility] Work Phone: Start: 01-20-2024 End: 01-20-2024 Francoise Layton Work Phone: [facility] Start: 01-01-2024 End: 01-01-2024 ambulatory [facility] Work Phone: Start: 01-01-2024 End: 01-01-2024 Patient encounter procedure [facility] Physician [facility] Work Phone: Start: 12-30-2023 End: 12-30-2023 ambulatory [facility] Work Phone: Start: 12-30-2023 End: 12-30-2023 Patient encounter procedure [facility] Physician [facility] Work Phone: Start: 12-22-2023 End: 12-22-2023 ambulatory Graham VELAZQUEZ Facility:[facility] Start: 12-22-2023 End: 12-22-2023 Patient encounter procedure Graham VELAZQUEZ [facility] Start: 12-16-2023 Non-patient / Non-visit [facility] Physician [facility] [place] Work Phone: Start: 12-10-2023 Non-patient / Non-visit [facility] Physician [facility] [place] Work Phone: Start: 12-09-2023 Non-patient / Non-visit [facility] Physician [facility] [place] Work Phone: Start: 11-28-2023 End: 11-28-2023 ambulatory [facility] Work Phone: Start: 11-28-2023 End: 11-28-2023 Patient encounter procedure [facility] Physician [facility] Work Phone: Start: 11-05-2023 End: 11-05-2023 Patient encounter procedure [facility] Physician [facility] Work Phone: Start: 10-24-2023 End: 10-24-2023 ambulatory [facility] Work Phone: Start: 10-24-2023 End: 10-24-2023 Patient encounter procedure [facility] Physician [facility] Work Phone: Start: 10-21-2023 End: 10-21-2023 Francoise Layton Work Phone: [facility] Start: 09-22-2023 End: 09-22-2023 ambulatory Anirudh Wang Other [employer] Other Start: 09-22-2023 Nursing evaluation o f patient and report Anirudh Wang [facility] Start: 09-19-2023 End: 09-19-2023 ambulatory Anirudh Wang Other [employer] Other Start: 09-19-2023 Office outpatient visit 15 minutes Anirudh Wang [facility] Start: 09-19-2023 End: 09-19-2023 Patient encounter procedure [facility] Work Phone: Start: 08-26-2023 End: 08-26-2023 May El Rashedy Work Phone: [facility] Start: 08-21-2023 End: 08-21-2023 Office outpatient visit 15 minutes Avani Mcguire Work Phone: [facility] Start: 08-20-2023 End: 08-20-2023 ambulatory Anirudh Wang Other [employer] Other Start: 08-20-2023 Office outpatient visit 15 minutes Anirudh Wang [facility] Start: 08-20-2023 End: 08-20-2023 Patient encounter procedure [facility] Work Phone: Start: 08-06-2023 End: 08-06-2023 ambulatory Anirudh Wang Other [employer] Other Start: 08-06-2023 Telephone encounter Anirudh W[facility] Start: 07-29-2023 End: 07-29-2023 Office outpatient visit 25 minutes May El Rashedy Work Phone: [facility] Start: 07-28-2023 End: 07-28-2023 ambulatory Anirudh Wang Other [employer] Other Start: 07-28-2023 Telephone encounter Anirudh [facility] Start: 07-21-2023 End: 07-21-2023 ambulatory Anirudh Wang Other [employer] Other Start: 07-21-2023 Nursing evaluation o f patient and report Anirudh Wang [facility] Start: 07-14-2023 End: 07-14-2023 ambulatory Anirudh Wang Other [employer] Other Start: 07-14-2023 Telephone encounter Anirudh Wang [facility] Start: 05-19-2023 End: 05-19-2023 ambulatory Tricia Weiss Other [employer] Other Start: 05-19-2023 Nursing evaluation o f patient and report Tricia Weiss [facility] Start: 05-19-2023 Telephone encounter Anirudh Wang [facility] Start: 05-16-2023 End: 05-16-2023 ambulatory Imad Asaad Other [employer] Other Start: 05-16-2023 Telephone encounter Imad Asaad [facility] Start: 05-09-2023 End: 05-09-2023 ambulatory Imad Asaad Other [employer] Other Start: 05-09-2023 Telephone encounter Imad Asaad [facility] Start: 05-02-2023 End: 05-02-2023 ambulatory Anirudh Wang Other [employer] Other Start: 05-02-2023 Telephone encounter Anirudh Wang [facility] Start: 04-17-2023 End: 04-17-2023 ambulatory Anirudh Wang Other [employer] Other Start: 04-17-2023 Office outpatient visit 25 minutes Anirudh Wang [facility] Start: 04-14-2023 End: 04-14-2023 ambulatory Imad Asaad Other [employer] Other Start: 04-14-2023 Office outpatient visit 25 minutes Imad Asaad [facility] Start: 04-10-2023 Telephone encounter Anirudh WING [facility] Start: 04-10-2023 End: 04-10-2023 ambulatory Anirudh Wang [employer] Other Start: 04-04-2023 End: 04-04-2023 ambulatory Anirudh Wang Other [employer] Other Start: 04-04-2023 Telephone encounter Anirudh Wang FP [facility] Start: 04-01-2023 End: 04-01-2023 ambulatory Anirudh Wang Other [employer] Other Start: 04-01-2023 Telephone encounter Anirudh WING [facility] Start: 03-27-2023 End: 03-27-2023 ambulatory Anirudh Wang Facility:[facility] Start: 03-27-2023 End: 03-27-2023 ambulatory DO Anirudh Wang Work Phone: [facility] Work Phone: Start: 03-27-2023 End: 03-27-2023 Patient encounter procedure DO Anirudh Wang Work Phone: [facility] Work Phone: Start: 02-18-2023 End: 02-18-2023 ambulatory Anirudh Wang Other [employer] Other Start: 02-18-2023 Telephone encounter [facility] Start: 02-10-2023 End: 02-10-2023 ambulatory Anirudh Wang Other [employer] Other Start: 02-10-2023 Nursing evaluation o f patient and report Anirudh Wang [facility] Start: 02-05-2023 End: 02-05-2023 ambulatory Anirudh Wang Other [employer] Other Start: 02-05-2023 Office outpatient visit 15 minutes Anirudh Wang [facility] Start: 02-04-2023 End: 02-04-2023 ambulatory WAI DAUGHERTY Facility:[facility] Start: 01-31-2023 End: 01-31-2023 ambulatory Imad Asaad Other [employer] Other Start: 01-31-2023 Telephone encounter Imad Asaad [facility] Start: 01-23-2023 End: 01-23-2023 ambulatory Imad Asaad Facility:[facility] Start: 01-23-2023 End: 01-23-2023 Admission to same day surgery center DO Anirudh Wang Work Phone: [facility] Work Phone: Start: 01-07-2023 End: 01-08-2023 ambulatory IMAD ASAAD Facility:[facility] Start: 01-06-2023 End: 01-06-2023 ambulatory Imad Asaad Other [employer] Other Start: 01-06-2023 Office outpatient ne w 45 minutes Imad Asaad [facility] Start: 01-02-2023 End: 01-02-2023 ambulatory Anirudh Wang Other [employer] Other Start: 01-02-2023 Nursing evaluation o f patient and report Anirudh Wang [facility] Start: 12-25-2022 Telephone encounter Anirudh WING [facility] Start: 12-25-2022 End: 12-26-[address] ANIRUDH WANG [employer] Other Start: 12-18-2022 End: 12-18-2022 ambulatory Anirudh Wang Other [employer] Other Start: 12-18-2022 Office outpatient visit 25 minutes Anirudh Wang [facility] Start: 12-13-2022 End: 12-13-2022 ambulatory Anirudh Wang Other [employer] Other Start: 12-13-2022 Telephone encounter Anirudh WING [facility] Start: 12-04-2022 End: 12-04-2022 ambulatory Anirudh Wang Other [employer] Other Start: 12-04-2022 Telephone encounter Anirudh WING [facility] Start: 12-02-2022 End: 12-03-[address] ANIRUDH WANG [facility] [employer] Other Start: 12-02-2022 Nursing evaluation o f patient and report Anirudh Wang [facility] Start: 12-02-2022 Office outpatient visit [address]h Wang [facility] Start: 11-25-2022 End: 11-25-2022 Patient encounter procedure Graham VELAZQUEZ [facility] Start: 11-18-2022 End: 11-19-[address] GRAHAM VELAZQUEZ . Facility:[facility] Start: 10-31-2022 End: 10-31-2022 ambulatory Anirudh Wang Other [employer] Other Start: 10-31-2022 Nursing evaluation o f patient and report Anirudh [facility] Start: 10-14-2022 End: 10-14-2022 Khari Alexi Jana Work Phone: [facility] Start: 10-08-2022 End: 10-08-2022 ambulatory Anirudh Wang Other [employer] Other Start: 10-08-2022 Telephone encounter [facility] Start: 09-30-2022 End: 09-30-2022 ambulatory Anirudh Wang Other [employer] Other Start: 09-30-2022 Nursing evaluation o f patient and report Anirudh Wang [facility] Start: 09-27-2022 Encounter for genera l adult medical examination without abnormal findings DR ANIRUDH WANG [facility] Start: 09-27-2022 End: 09-27-2022 ambulatory Anirudh Wang Other [employer] Other Start: 09-27-2022 Telephone encounter Anirudh WING [facility] Start: 09-20-2022 Patient encounter procedure Anirudh [facility] Start: 09-20-2022 End: 09-21-[address] ANIRUDH WANG [facility] [employer] Other Start: 09-20-2022 End: 09-21-2022 Encounter for general adult medical examination without abnormal findings DR ANIRUDH WANG Facility:[facility] Start: 06-24-2022 End: 06-24-2022 Khari Truong Jana Work Phone: [facility] Start: 03-04-2022 End: 03-04-2022 Khari Alexi Jana Work Phone: [facility] Start: 01-07-2022 End: 01-07-2022 Khari Alexi Jana Work Phone: [facility] Start: 12-10-2021 End: 12-10-2021 Khari K Jana Work Phone: [facility] Start: 11-21-2021 End: 11-21-2021 Office outpatient visit 25 minutes Avani Mcguire Work Phone: [facility] Start: 10-31-2021 End: 10-31-2021 Office outpatient visit 15 minutes Avani España Alkaliby Work Phone: [facility] Start: 10-15-2021 End: 10-15-2021 Office outpatient visit 15 minutes Khari Truong Jana Work Phone: [facility] Start: 09-17-2021 Adult health examination Anirudh [facility] Other [facility] [employer] Other Start: 06-06-2021 End: 06-06-2021 Office outpatient visit 15 minutes Khari Bates Work Phone: [facility] Start: 03-07-2021 End: 03-07-2021 Office outpatient visit 25 minutes Khari Truong Jana Work Phone: [facility] Start: 12-06-2020 End: 12-06-2020 Khari Truong Jana Work Phone: [facility] Start: 09-06-2020 End: 09-06-2020 Office outpatient visit 15 minutes Khari Truong Jana Work Phone: [facility] Start: 07-12-2020 End: 07-12-2020 Khari Truong Jana Work Phone: [facility] Start: 01-05-2020 End: 01-05-2020 Khari Truong Jana Work Phone: [facility] Start: 10-06-2019 End: 10-06-2019 Office outpatient visit 15 minutes Khari Truong Jana Work Phone: [facility] Start: 07-07-2019 End: 07-07-2019 Khari Truong Jana Work Phone: [facility] Start: 04-14-2019 End: 04-14-2019 Khari Truong Jana Work Phone: [facility] Start: 02-17-2019 End: 02-17-2019 Khari Truong Jana Work Phone: [facility] Start: 01-06-2019 End: 01-06-2019 Khari Truong Jana Work Phone: [facility] Start: 10-07-2018 End: 10-07-2018 Khari Truong Jana Work Phone: [facility] Start: 08-05-2018 End: 08-05-2018 Khari Truong Jana Work Phone: [facility] Start: 04-15-2018 End: 04-15-2018 Khari Truong Jana Work Phone: [facility] Start: 02-18-2018 End: 02-18-2018 Khari Truong Jana Work Phone: [facility] Start: 01-14-2018 End: 01-14-2018 Office outpatient visit 15 minutes Khari Truong Jana Work Phone: [facility] Start: 12-10-2017 End: 12-10-2017 Khari Truong Jana Work Phone: [facility] Start: 11-19-2017 End: 11-19-2017 Khari Alexi Jana Work Phone: [facility] Start: 10-14-2017 End: 10-14-2017 Rowan Sherman Work Phone: [facility] Start: 09-10-2017 End: 09-10-2017 Khari Alexi Jana Work Phone: [facility] Start: 07-30-2017 End: 07-30-2017 Khari Truong Jana Work Phone: [facility] Start: 06-23-2017 End: 06-23-2017 Rowan Sherman Work Phone: [facility] Start: 05-13-2017 End: 05-13-2017 Office outpatient visit 15 minutes Khari Bates Work Phone: [facility] Start: 04-02-2017 End: 04-02-2017 Khari Alexi Bates Work Phone: [facility] Start: 02-12-2017 [...] Eylea 1mg Pre-filled Syringe Ashkan Al S cassandra DIXON Start: 08-30-2024 End: 08-30-2024 Intravitreal njx pharmacologic agt spx Ashkan Al Shweiki Start: 06-07-2024 End: 06-07-2024 Dstrj loclzd lesion retina 1/> sess pc Ashkan Al Shweiki Start: 05-31-2024 Eylea 1mg Pre-filled Syringe Ashkan Al S hweiki Start: 05-31-2024 End: 05-31-2024 Eylea 1mg Pre-filled Syringe Ashkan Al S cassandra DIXON Start: 05-31-2024 End: 05-31-2024 Fluorescein angrph w/multiframe [...] MD Start: 10-21-2023 End: 10-21-2023 Aflibercept injection Ashkna Pacheco MD Start: 10-21-2023 End: 10-21-2023 Computerized [...] on above: Performed By: #### CBC #### [facility] [address] [place] [address] Dr. Haley Mays Start: 10-14-2022 End: 10-14-2022 [...] 07-07-2019 Intravitreal njx pharmacologic agt spx Ashkan Pacheco MD Start: 04-14-2019 End: 04-14-2019 Computerized ophthalmic [...] 04-15-2018 Intravitreal njx pharmacologic agt spx Ashkan Igor Boswell MD Start: 02-18-2018 End: 02-18-2018 Aflibercept injection Ashkan Pacheco MD Start: 02-18-2018 End: 02-18-2018 Computerized ophthalmic imaging retina Ashkan Pacheco MD Start: 02-18-2018 End: 02-18-2018 Intravitreal njx pharmacologic agt spx Ashkan Igor Boswell MD Start: 01-14-2018 End: 01-14-2018 Aflibercept injection [...] 10-14-2017 Intravitreal njx pharmacologic agt spx Ashkan Igor Boswell MD Start: 09-10-2017 End: 09-10-2017 Computerized ophthalmic imaging retina Ashkan Pacheco MD Start: 09-10-2017 End: 09-10-2017 Intravitreal njx pharmacologic agt spx Ashkan Igor Boswell MD Start: 09-10-2017 End: 09-10-2017 Unclassified biologics Ashkan Pacheco MD Start: 07-30-2017 End: 07-30-2017 Bevacizumab injection Ashkan Pacheco MD Start: 07-30-2017 End: 07-30-2017 Computerized ophthalmic imaging retina Ashkan Pacheco MD Start: 07-30-2017 End: 07-30-2017 Intravitreal njx pharmacologic agt spx Ashkan Igor Boswell MD Start: 06-23-2017 End: 06-23-2017 Bevacizumab injection [...] 01-08-2017 Intravitreal njx pharmacologic agt spx Ashkan Igro Boswell MD Start: 01-01-2017 Hyperlipidemia screening Anirudh Wang [...] 09-08-1974 Repair of left inguinal hernia Graham Alexandria GRAYSON Depression screening Jona keke [facility] Other Depression screening Jona Wang Other History of operative procedure on knee Graham VELAZQUEZ Vasectomy Graham VELAZQUEZ Plan of Treatment Date Care Activity Detail Author Start: 12-06-2024 Marcelino Escobar 14 Weeks EYL OS(2-3) OCT [facility] Work Phone: Start: 01-01-2024 Patient referral [facility] Work Phone: Start: 01-23-2023 [facility] Start: 10-15-2021 Smoking cessation education Tobacco cessation counseling [facility] Start: 01-05-2020 Patient Education Health Infor mation for You: [facility] Work Phone: Start: 10-06-2019 Patient Education Health Infor mation for You: [facility] Work Phone: Start: 07-07-2019 Patient Education Health Infor mation for You: [facility] Work Phone: Patient Education Colon polyps [facility] Work Phone: Patient referral [facility] Work Phone: Renal function 1999 panel - Serum or Plasma [facility] Renal function 1999 panel - Serum or Plasma [facility] Renal function 2000 panel - Serum or Plasma [facility] Immunizations Immunization Date Immunization Notes Care Provider Aurora acosta NEGATED: Highlighted row has not occurred!11-20-2020 influenza virus vaccine, unspecified formulation Graham VELAZQUEZ [facility] NEGATED: Highlighted row has not occurred!11-22-2019 influenza virus vaccine, live, attenuated, for intranasal use Graham VELAZQUEZ [facility] Payers Date Payer Category Payer Self-pay 1961 Medicare [id number] 1948 Unknown [id number] 3 1948 Unknown [id number] 3 1948 Unknown [id number] 2.840.1.994700.3.579.2.59 3 1948 Unknown [id number] 2.16.840.1.593165.3.579.2.59 3 1948 Unknown [id number] 2.16.840.1.917838.3.579.2.59 3 1948 Unknown [id number] 2.16.840.1.422066.3.579.2.59 3 1948 Unknown [id number] 2.16.840.1.495761.3.579.2.13 47 1948 Unknown [id number] 2.16.840.1.281515.3.579.2.13 47 1948 Unknown [id number] 2.16.840.1.711052.3.579.2.13 47 1948 Unknown [id number] 2.16.840.1.961025.3.579.2.13 47 1948 Unknown [id number] 2.16.840.1.389139.3.579.2.13 47 1948 Unknown [id number] 2.16.840.1.757198.3.579.2.72 7 1948 Unknown [id number] 2.16.840.1.675480.3.579.2.72 7 1948 Unknown [id number] 2.16.840.1.994293.3.579.2.72 7 Private Health Insurance [employer] Mcr PFFS N on Pt [id number] Unknown [id number] [id number] 1 Unknown [id number] 2.16.840.1.790727.3.579.2.53 1 Unknown [id number] [id number] 1 Social History Date Type Detail Facility Sex Assigned At [facility] Start: 11-25-2022 End: 03-18-2024 Tobacco smoking status Never smoked tobacco (finding) [facility] Tobacco smoking status Never [facility] Start: 1950 Sex Assigned At Male [facility] Start: 07-19-2024 End: 11-30-2024 Sex Male (finding) [facility] Start: 08-30-2024 Health-related behavior (observable entity) Caffeine [...] Abdominal hernia surgical mesh, synthetic polymer, non-bioabsorbable ()[id number] FDA Start: 04-10-2023 Goals Date Patient Goal Desired Activity /State Functional Status Date Assessment Result Facility 12-22-2023 Functional Status N/A [facility] 11-25-2022 Functional Status N/A [facility] Clinical Notes 09-20-2022 to 08-31-2024 Note Date & Type Note Facility 08-31-2024 Evaluation note Diagnosis Onset Date Resolution Benign prostatic hyperplasia with lower urinary tract symptoms acute August 31, 2024 8:51am Celiac disease acute August 092023 8:51am Chronic kidney disease acute 2023 8:51am Chronic venous insufficiency of lower extremity acute August 31 8:51am KEVIN (generalized anxiety disorder) acute August 31 8:51am Primary hypertension acute 2023 8:51am [facility] Work Phone: 1(401) 305-791612-23-2024 Evaluation note* Type Assessment Date assessment Trib rtnl vein occlusion, left e ye, with macular edema impression Trib rtnl vein occlu maribel, left eye, with macular edema: H34.8320. Let [facility] Work Phone: 1(164) 907-998712-23-2024 History of Present illness Narrative* Encounter Date [...] floaters. slight decrease in vision The maciel cagle complains of a slight decrease in vision [...] floaters. denies any vision changes The maciel cagle denies any vision changes in the right [...] 66 year old male referred by Dr. aZyas for a retinal occlusion in the left eye. [facility] Work Phone: 1(168) 769-722012-23-2024 Instructions* Date Instruction Additional Infor mation Impression/Plan Related to Trib rtnl vein occlusion, [...] right eye Return in 6 months w ith Khari Bates MD for follow up exam and [...] PCP. Appropriate follow up with primary eye pet caretaker was recommended. Related to Trib rtnl vein [...] PCP. Appropriate follow up with primary eye pet caretaker was recommended. Related to Trib rtnl vein [...] PCP. Appropriate follow up with primary eye pet caretaker was recommended. Related to Trib rtnl vein [...] symptoms noted. Related to Vitreous degeneration, bilateral Oct Follow up - Return i n 4-[address] Bates for follow up exam, OCT and possible Avastin. Jun- Impression/Plan - Re gular follow up appointments [...] #1. Related to Retinal hemorrhage, left eye Jun- Impression/Plan - Br anch Retinal Vein Occlusion [...] #1. Related to Retinal hemorrhage, left eye May- Impression/Plan - RI GHT EYE: Macular Pucker [...] PCP. Appropriate follow up with primary eye pet caretaker was recommended. Related to Trib rtnl vein [...] PCP. Appropriate follow up with primary eye pet caretaker was recommended. Related to Trib rtnl vein [...] macula, right eye [facility] Work Phone: 1(877) 362-254110-24-2024 Evaluation note* Diagnosis Onset Date Resolution Status Admit Date Benign prostatic hyperplasia with lower urinary tract symptoms acute July 01 1:41pm CKD (chronic kidney disease) stage 3, GFR 30-59 ml/min acute Junobe r 2023 1:41pm Hypertensive chronic kidney disease with stage 1 through stage 4 chronic ki acute July 01, 2024 1:41pm Pernicious anemia acute July 01, 2024 1:41pm Retinal vein occlusion of ri ght eye acute July 01 1:41pm Vitamin D deficiency acute 2023 1:41pm Benign prostatic hyperplasia with lower urinary tract symptoms acute August 31 8:51am Celiac disease acute August 092023 8:51am Chronic kidney disease acute 2023 8:51am Chronic venous insufficiency of lower extremity acute August 31 8:51am KEVIN (generalized anxiety disorder) acute August 31 8:51am Primary hypertension acute Dece mb2023 8:51am [facility] Work Phone: 1(677) 338-318308-26-2024 Evaluation note* Diagnosis Onset Date Resolution Status [...] July 01 1:41pm Vitamin D deficiency acute 2023 1:41pm [facility] Work Phone: 1(139) 161-751904-15-2024 Hospital Discharge instructions Patient Education 12/22/2023 15:16:35 [...] urethra. Follow these instructions at home: Take uqon-jav-pncmqar and prescription medicines only as told by [...] provider. Document Revised: 03/13/2022 Document Reviewed: 03/13/2022 [employer] Patient Education 2022 [employer]. Follow Up Care 11/25/2022 09:03:23 With:ANDREEA DIXON, Graham Ruby, URL Address: [facility] [address], [place] [address]- [phone] When: Unknown Comments:1 yr w/ PSA [facility] 03-22-2024 Evaluation note* Diagnosis Onset Date Resolution Status Pernicious anemia acute Chronic venous insufficiency of lower extremity acute Primary hypertension acute Stage 3a chronic kidney disease (CKD) [facility] Work Phone: 1([phone]) 475-142601-15-2024 Evaluation note* Encounter Date Diagnosis Assessment Notes Treatment Notes Treatment Clinical Notes Sep, Pernicious anemia (ICD-10 - D51.0) [employer] Other 01-12-2024 Evaluation note* Encounter Date Diagnosis [...] quality Sep, Pernicious anemia (ICD-10 - D51.0) [employer] Other 12-13-2023 Evaluation note* Encounter Date Diagnosis [...] may cause sedation Recheck in 1 mo [employer] Other 11-20-2023 Evaluation note* Encounter Date Diagnosis Assessment Notes Treatment Notes Treatment Clinical Notes Jul, Primary hypertension (ICD-10 - I10) [employer] Other 11-13-2023 Evaluation note* Encounter Date Diagnosis Assessment Notes Treatment Notes Treatment Clinical Notes Jul, Pernicious anemia (ICD-10 - D51.0) [employer] Other 09-11-2023 Evaluation note* Encounter Date Diagnosis Assessment Notes Treatment Notes Treatment Clinical Notes May, Pernicious anemia (ICD-10 - D51.0) [employer] Other 09-08-2023 Evaluation note* Encounter Date Diagnosis Assessment Notes Treatment Notes Treatment Clinical Notes May, Other osteoporosis without current pathological fracture (ICD-10 - M81.8) [employer] Other 08-10-2023 Evaluation note* Encounter Date Diagnosis [...] softeners for maintenance as well as Metamucil. [employer] Other 08-07-2023 Evaluation note* Encounter Date Diagnosis Assessment Notes Treatment Notes Treatment Clinical Notes Apr, Celiac disease (ICD-10 - K90.0) Patient advised to avoid gluten Apr, Encounter for screening for osteoporosis (ICD-10 - Z13.820) [employer] Other 06-05-2023 Evaluation note* Encounter Date Diagnosis Assessment Notes Treatment Notes Treatment Clinical Notes Feb, Pernicious anemia (ICD-10 - D51.0) [employer] Other 05-31-2023 Evaluation note* Encounter Date Diagnosis Assessment Notes Treatment Notes Treatment Clinical Notes January, Pernicious anemia (ICD-10 - D51.0) Continue monthly B12 injections January, Celiac disease (ICD-10 - K90.0) Continue Gluten free diet f/u GI January, Chronic idiopathic constipation (ICD-10 - K59.04) Miralax and Amitiza didn't help. Using Supp every 72 hours as needed. Push fluids [employer] Other 05-26-2023 Evaluation note* Encounter Date Diagnosis Assessment Notes Treatment Notes Treatment Clinical Notes January, Celiac disease (ICD-10 - K90.0) [employer] Other 05-01-2023 Evaluation note* Encounter Date Diagnosis [...] January, Iron deficiency anemia (ICD-10 - D50.9) [employer] Other 04-27-2023 Evaluation note* Encounter Date Diagnosis Assessment Notes Treatment Notes Treatment Clinical Notes Dec, Pernicious anemia (ICD-10 - D51.0) [employer] Other 04-12-2023 Evaluation note* Encounter Date Diagnosis [...] schedule CT scan to r/o obstructing mass [employer] Other 03-27-2023 Evaluation note* Encounter Date Diagnosis Assessment Notes Treatment Notes Treatment Clinical Notes Nov, Pernicious anemia (ICD-10 - D51.0) [employer] Other 03-27-2023 Evaluation note* Encounter Date Diagnosis [...] adequate fluid balance and to avoid dehydration. [employer] Other 03-20-2023 Hospital Discharge instructions Patient Education [...] urethra. Follow these instructions at home: Take mjie-wee-kowilcs and prescription medicines only as told by [...] 08/25/2006 Document Revised: 07/20/2019 Document Reviewed: 09/29/2017 [employer] Patient Education 2020 [employer]. Follow Up Care 11/23/2021 08:51:05 With:ANDREEA DIXON, Graham Ruby, URL Address: [facility] [address] [place] [address]- When: Unknown [facility] 02-23-2023 Evaluation note* Encounter Date Diagnosis Assessment Notes Treatment Notes Treatment Clinical Notes Oct, Pernicious anemia (ICD-10 - D51.0) [employer] Other 01-23-2023 Evaluation note* Encounter Date Diagnosis Assessment Notes Treatment Notes Treatment Clinical Notes Sep, Pernicious anemia (ICD-10 - D51.0) [employer] [facility] [employer] Other 01-20-2023 Evaluation note* Encounter Date Diagnosis Assessment Notes Treatment Notes Treatment Clinical Notes Sep, Anemia, unspecified type (ICD-10 - D64.9) [employer] Other 01-13-2023 Evaluation note* Encounter Date Diagnosis [...] High risk medication use (ICD-10 - Z79.899) [employer] Other Consult note* Clinical Note Date No Information [facility] Work Phone: Discharge summary* Clinical Note Date No Information [facility] Work Phone: Evaluation + Plan note Future Appointments Appointment Date:11/28/2023 08:30:00 AM Scheduled Provider:Graham VELAZQUEZ MD Location:[facility] Appointment Type:URO Office Visit Diagnostic Tests Pending * PSA Total 11/25/22 [facility] evaluation + Plan note Future Appointments Appointment Date:12/27/2024 09:45:00 AM Scheduled Provider:Graham VELAZQUEZ MD Location:[facility] Appointment Type:URO Office Visit Diagnostic Tests Pending * PSA Total 12/22/23 [facility] evaluation noteNo [employer] Other evaluation noteNo assessment information available [facility] Work Phone: evaluation note* Diagnosis Onset Date Resolution Status Pernicious anemia acute Chronic venous insufficiency of lower extremity acute Primary hypertension acute [facility] Work Phone: evaluptizu note* Diagnosis Onset Date Resolution Status Pernicious anemia acute Chronic venous insufficiency of lower extremity acute Primary hypertension acute Benign prostatic hyperplasia with lower urinary tract symptoms acute Celiac disease acute Chronic kidney disease acute Chronic venous insufficiency of lower extremity acute KEVIN (generalized anxiety disorder) acute Primary hypertension acute Medicare annual wellness visit, subsequent noneactive [facility] Work Phone: Evaluation note* Diagnosis Onset Date Resolution Status Chronic venous insufficiency of lower extremity acute Primary hypertension acute Benign prostatic hyperplasia with lower urinary tract symptoms acute Celiac disease acute Chronic kidney disease acute Chronic venous insufficiency of lower extremity acute KEVIN (generalized anxiety disorder) acute Primary hypertension acute Medicare annual wellness visit, subsequent noneactive [facility] Work Phone: evaluation note* Diagnosis Onset Date Resolution Status Benign prostatic hyperplasia with lower urinary tract symptoms acute Celiac disease acute Chronic kidney disease acute Chronic venous insufficiency of lower extremity acute KEVIN (generalized anxiety disorder) acute Primary hypertension acute Medicare annual wellness visit, subsequent noneactive [facility] Work Phone: Evaluation note* Diagnosis Onset Date Resolution Status Benign prostatic hyperplasia with lower urinary tract symptoms acute Celiac disease acute Chronic kidney disease acute Chronic venous insufficiency of lower extremity acute KEVIN (generalized anxiety disorder) acute Primary hypertension acute Medicare annual wellness visit, subsequent noneactive Benign prostatic hyperplasia with lower urinary tract symptoms acute Chronic kidney disease acute [id number] acute Other osteoporosis without c urrent pathological fracture acute Pernicious anemia acute Retinal vein occlusion of right eye acute [facility] Work Phone: Evaluation note* Diagnosis Onset Date Resolution Status Benign prostatic hyperplasia with lower urinary tract symptoms acute Chronic kidney disease acute [id number] acute Pernicious anemia acute Retinal vein occlusion of right eye acute Benign prostatic hyperplasia with lower urinary tract symptoms acute Chronic kidney disease acute [id number] acute Pernicious anemia acute Retinal vein occlusion of right eye acute [facility] Work Phone: Evaluation note* Diagnosis Onset Date Resolution Status Benign prostatic hyperplasia with lower urinary tract symptoms acute Chronic kidney disease acute [id number] acute Pernicious anemia acute Retinal vein occlusion of right eye acute Benign prostatic hyperplasia with lower urinary tract symptoms acute Chronic kidney disease acute [id number] acute Pernicious anemia acute Retinal vein occlusion of right eye acute Vitamin D deficiency acute [facility] Work Phone: Evaluation note* Diagnosis Onset Date Resolution Status Benign prostatic hyperplasia with lower urinary tract symptoms acute Chronic kidney disease acute [id number] acute Pernicious anemia acute Retinal vein occlusion of right eye acute Benign prostatic hyperplasia with lower urinary tract symptoms acute Chronic kidney disease acute [id number] acute Pernicious anemia acute Retinal vein occlusion of right eye acute Vitamin D deficiency acute Benign prostatic hyperplasia with lower urinary tract symptoms acute Celiac disease acute Chronic kidney disease acute Chronic venous insufficiency of lower extremity acute KEVIN (generalized anxiety disorder) acute Primary hypertension acute [facility] Work Phone: Evaluation note* Diagnosis Onset Date Resolution Status Benign prostatic hyperplasia with lower urinary tract symptoms acute Chronic kidney disease acute [id number] acute Pernicious anemia acute Retinal vein occlusion of right eye acute Vitamin D deficiency acute Benign prostatic hyperplasia with lower urinary tract symptoms acute Celiac disease acute Chronic kidney disease acute Chronic venous insufficiency of lower extremity acute KEVIN (generalized anxiety disorder) acute Primary hypertension acute [facility] Work Phone: Evaluation note* Diagnosis Onset Date Resolution Status Benign prostatic hyperplasia with lower urinary tract symptoms acute Celiac disease acute Chronic kidney disease acute Chronic venous insufficiency of lower extremity acute KEVIN (generalized anxiety disorder) acute Primary hypertension acute Benign prostatic hyperplasia with lower urinary tract symptoms acute CKD (chronic kidney disease) stage 3, GFR 30-59 ml/min acute [id number] acute Pernicious anemia acute Retinal vein occlusion of right eye acute Vitamin D deficiency acute [facility] Work Phone: History and physical note* Clinical Note Date No Information [facility] Work Phone: Hissmpx general Narrative - Reported* Type Description Date [...] CATARACT ECTRACTION, BILATERAL Hospitalization History SEE ABOVE [facility] Other Hisrmrw general Narrative - Reported* Type Description Date [...] polypectomy 01/25 23 Hospitalization History SEE ABOVE [facility] Other Hismroc general Narrative - ReportedNoFilmLoop Other Hiseuno general Narrative - Reported* Type Description Date [...] inguinal hernia 04/2023 Hospitalization History SEE ABOVE [facility] Other History general Narrative - Reported* Type [...] inguinal hernia 04/2023 Hospitalization History SEE ABOVE [facility] Other Hospital course Narrative No data available for this section [facility] Hospital Discharge instructionsAmbulatory Orders* Referral to Nephrology Location: None [facility] Work Phone: Progress note No data available for this section [facility] progress note* Clinical Note Date No Information [facility] Work Phone: Reason for referral (narrative)* Reason *Waiting for appt Referral to confirm Celiac disease Diagnosis 1 Celiac disease (K90. 0) Referral Organization [facility] Adeline parker Referring Provider First Name Anirudh Referring Provider Last Name Adeline Referring Provider Specialty Internal Me dicine Referred Organization [facility] Referred Provider Zeeshan Joe Referred Address [address],[id number] Referred Provider Specialty Gastroentero logy Referral Priority Routine General Notes Sanam Guido 11:00:10 AM >RECEIVED TODAY, SENT [facility] Other Reason for referral (narrative)* Reason For [...] Time Advance Directives January 15 3 8:48am Directive Yes / [...] lower urinary tract symptoms Chronic kidney disease [id number] Other osteoporosis without current pathological fracture Pernicious anemia Retinal vein occlusion of right eye Chief Complaint B12 B12 Shot RENAL CKD RENAL 2 WK F/U Reason for Visit Benign prostatic hyp erplasia with lower urinary tract symptoms Chronic kidney disease [id number] Pernicious anemia Retinal vein occlusion of right eye Benign prostatic hyperplasia with lower urinary tract symptoms Chronic kidney disease [id number] Pernicious anemia Retinal vein occlusion of right eye Chief Complaint B12 B12 Shot RENAL CKD RENAL 2 WK F/U B12 shot Reason for Visit Benign prostatic hyp erplasia with lower urinary tract symptoms Chronic kidney disease [id number] Pernicious anemia Retinal vein occlusion of right eye Benign prostatic hyperplasia with lower urinary tract symptoms Chronic kidney disease [id number] Pernicious anemia Retinal vein occlusion of right eye Vitamin D deficiency Chief Complaint B12 Shot RENAL CKD RENAL 2 WK F/U B12 shot 4 month check up Reason for Visit Benign prostatic hyp erplasia with lower urinary tract symptoms Chronic kidney disease [id number] Pernicious anemia Retinal vein occlusion of right eye Benign prostatic hyperplasia with lower urinary tract symptoms Chronic kidney disease [id number] Pernicious anemia Retinal vein occlusion of right [...] lower urinary tract symptoms Chronic kidney disease [id number] Pernicious anemia Retinal vein occlusion of right eye Benign prostatic hyperplasia with lower urinary tract symptoms Chronic kidney disease [id number] Pernicious anemia Retinal vein occlusion of right [...] lower urinary tract symptoms Chronic kidney disease [id number] Pernicious anemia Retinal vein occlusion of right [...] kidney disease) stage 3, GFR 30-59 ml/min [id number] Pernicious anemia Retinal vein occlusion of right [...] 2024 8:51am KEVIN (generalized anxiety disorder) Decem mars 2023 8:51am Primary hypertension August 31, 2024 8:51am Chief Complaint Admit Date b12 shot August 18, 2024 9:24am 4 month f/u August 31, 2024 8:51am CC Adult Risk Stratification September 022023 11:20am B12 shot September 20, 2024 8 :46am b12 shot 2024 9:16am Reason for Visit Admit Date Benign prostatic hyperplasia with lower urinary tract symptoms August 31, 2024 8:51am Celiac disease August 31, 2024 8:51am Chronic kidney disease August 31 8:51am Chronic venous insufficiency of lower ex tremity August 31, 2024 8:51am KEVIN (generalized anxiety disorder) Decem mars 2023 8:51am Primary hypertension August 31, 2024 8:51am Chief Complaint Admit Date CC Adult Risk Stratification September 022023 11:20am B12 shot September 20, 2024 8 :46am b12 shot 2024 9:16am B12 shot November 30, 2024 8:5 5am Additional Source Comments REASON FOR VISIT (unrecogniz ed section and content) WELLNESS MBLab ResultsB-12 S hot mbmedicationB-12 ShotB-12 ShotDigestive System IssuesCeliac resultsReferralMultiple IssuesBloating/GasIncreased PainB-12 ShotCONSULT FOR CELIAC DISEASESENDING LABS1 week follow upB-12 ShotmessageLab resultsNo InformationPATIENT IS HERE FOR FOLLOW UP TO DISCUSS CELIAC DISEASE6 month Follow up -b12Lab ResultsGASTRO CONSULTNo InformationB-12 ShotRefillDEXA [id number] QuestionHigh BP1 month Follow up1 month Follow upB-12 SHOT Patient Care team informatio n (unrecognized section and content) Team Status: Active Member Role Status Renato Wang , DO Primary Care Provider Active Team Status: Active Member Role Status Renato Wang DO Primary Care Provide r, Attending Provider Active Start: September 02, 2024 Team Status: Inactive Member Role Status Renato Wang DO Primary Care Provide r, Attending Provider Active Start: September 20, 2024 End: September 20, 2024 Team Status: Active Member Role Status Renato Wang DO Primary Care Provide r, Attending Provider Active Start: October 14, 2024 Team Status: Inactive Member Role Status Renato Wang DO Primary Care Provide r, Attending Provider Active Start: 2024 End: 2024 Team Status: Inactive Member Role Status Renato Wang DO Primary Care Provide r, Attending Provider Active Start: November 30, 2024 End: November 30, 2024 Team Status: Active Member Role Status [...] Team Status: Inactive Member Role Status Renato Wagn DO Primary Care Provide r, Attending Provider Active Start: September 20, 2024 End: September 20, 2024 Team Status: Active Member Role Status Renato Wang DO Primary Care Provide r, Attending Provider Active Start: October 14, 2024 Team Status: Inactive Member Role Status Rneato Wang DO Primary Care Provide r, Attending Provider Active Start: 2024 End: 2024 Team Status: Active Member Role Status [...] Team Status: Inactive Member Role Status Renato Anirudh Wang DO Primary Care Provide r, Attending Provider Active Start: June 18, 2024 End: June 18, 2024 Name Effective Dates (start - stop) Status Members No Information Team Status: Inactive Member Role Status Renato Anirudh Wang DO Primary Care Provide r, Attending Provider Active Start: November 30, 2024 End: November 30, 2024 (unrecognized sect ion and content) No Status Records FoundNo Status Records FoundNo Status Records FoundNo Status Records Found INFORMATION SOURCE (unrecogn ized section and content) DATE CREATED AUTHOR [facility]/14/2023 [facility] DATE CREATED AUTHOR AUTHOR'S ORGANIZ ATION 04/21/2023 [facility] DATE CREATED AUTHOR AUTHOR'S ORGANIZ ATION 09/10/2024 [facility] DATE CREATED AUTHOR AUTHOR'S ORGANIZ ATION 11/14/2024 Kurt Chen [facility] Goals (unrecognized section and content) Goals may [...] BE BASED ON THE PRIMARY CLINICAL RECORDS. [employer] [facility]. provides no warranty or guarantee of the accuracy or completeness of information in this document.
[2024-12-06 09:10] LABS: Hematocrit 42.6 % (42.0-54.0); Hemoglobin 14.6 g/dL (14.0-18.0); Mean Corpuscular HGB Conc 34.3 g/dL (29.9-35.2); Mean Corpuscular Hemoglobin 32.3 pg (25.9-34.0); Mean Corpuscular Volume 94.2 fL (80.0-94.0); Mean Platelet Volume 9.8 fL (9.5-13.5); Platelet Count 198 10^3/uL (150-450); Red Blood Count 4.52 10^6/uL (4.70-6.10); Red Cell Distribution Width 12.4 % (11.0-15.0); White Blood Count 5.3 10^3/uL (4.0-11.0)
[2024-12-06 09:17] LABS: Bilirubin Urine NEGATIVE (NEGATIVE); Blood Urine NEGATIVE (NEGATIVE); Clarity Urine CLEAR (CLEAR); Color Urine LT. YELLOW (YELLOW); Glucose Urine UA NEGATIVE (NEGATIVE); Ketones Urine NEGATIVE (NEGATIVE); Leukocyte Esterase Urine NEGATIVE (NEGATIVE); Nitrite Urine NEGATIVE (NEGATIVE); Protein Urine TRACE mg/dL (NEG/TRACE); Urobilinogen Urine 0.2 EU/dL (0.2-1.0)
[2024-12-06 09:25] LABS: Creatinine Urine Random 96.62 mg/dL (20.00-300.00); Protein Creatinine Ratio Urine 0.25; Total Protein Urine Random 24.3 mg/dL (<=11.9)
[2024-12-06 09:27] LABS: Bacteria Urine NONE SEEN #/HPF (NONE SEEN); Cast Seen? NONE SEEN #/LPF (NONE SEEN); Crystals Seen? None Seen #/HPF (None Seen); Mucus Urine NONE SEEN (NONE SEEN); RBC Urine NONE SEEN #/HPF (0-2); Squamous Epithelial Cell Urine RARE #/LPF (NONE/RARE); WBC Urine NONE SEEN #/HPF (NONE SEEN)
[2024-12-06 09:43] LABS: Albumin Level 3.8 g/dL (3.4-5.0); BUN Creatinine Ratio 15.4; Calcium 8.8 mg/dL (8.5-10.1); Chloride 105 mmol/L (98-107); Estimated GFR (African America 51 (>=60 mL/min/1.73m^2); Estimated GFR (Non-African Ame 42 (>=60 mL/min/1.73m^2); Glucose 86 mg/dL (74-106); Phosphorus 2.6 mg/dL (2.6-4.7); Sodium 141 mmol/L (136-145); Uric Acid 6.7 mg/dL (3.5-7.2)
[2024-12-07 09:08] LABS: PTH, Intact 47 pg/mL (15-65)
== END 2024-12-06 08:44 | disposition home or self-care (01) ==
LOC: LAB 08:44
PROVIDERS: PCP Internal Medicine; Visit Provider Internal Medicine
DX: E55.9 Vitamin D deficiency, unspecified (principal); I12.9 Hypertensive chronic kidney disease with stage 1 through stage 4 chronic kidney disease, or unspecified chronic kidney disease; N40.1 Benign prostatic hyperplasia with lower urinary tract symptoms; N18.30 Chronic kidney disease, stage 3 unspecified
CPT/HCPCS: 36415; 80069; 81001; 82306; 82570; 83735; 83970; 84156; 84550; 85027

== ENCOUNTER 2025-05-17 08:52 | Outpatient (OUT) | payer MEDICARE, SELFPAY ==
--- OUTSIDE RECORDS SUMMARY | 2025-05-17 09:04 | XMS_ITS | CCD ---
Author Organization [facility] Care Team Providers Care Infection Control Specialist Name Role Phone Anirudh Wang Unavailable ANIRUDH WANG Primary Care Physician Asaad, Imad Unavailable ANDREEA ., DR STEVENSON Attending Unavailable ANDREEA ., DR STEVENSON Consulting Unavailable ANDREEA ., DR STEVENSON Admitting Unavailable ADELINE, DR CALLAWAY Primary Care Unavailable BALL, DR CALLAWAY Admitting Unavailable BALL, DR CALLAWAY Attending Unavailable ADELINE, DR CALLAWAY Consulting Unavailable ADELINE, DR CALLAWAY Primary Care Unavailable DEVI, IMADOLFO Admitting Unavailable ADELINE, DR CALLAWAY Primary Care Unavailable ASAADOLFO, VAUGHN Attending Unavailable DEVI, VAUGHN Consulting Unavailable WAI DAUGHERTY Attending Unavailable WAI DAUGHERTY Admitting Unavailable SHIRA, DR RUSTY Aguilera Consulting Unavailable ADELINE, DR CALLAWAY Primary Care Unavailable WAI DAUGHERTY Consulting Unavailable ADELINE, DR CALLAWAY Admitting Unavailable ADELINE, DR CALLAWAY Attending Unavailable ADELINE, DR CALLAWAY Consulting Unavailable ADELINE, DR CALLAWAY Primary Care Unavailable COURTNEY GILL Consulting Unavailable ADELINE, DR CALLAWAY Admitting Unavailable BALL, DR CALLAWAY Attending Unavailable ADELINE, DR CALLAWAY Consulting Unavailable ADELINE, DR CALLAWAY Primary Care Unavailable MD Vaughn Pretty Attending Provider DO Anirudh Wang Primary Care Provider MD Ryan Cornell Attending Provider Asaad, Imadolfo Attending Unavailable Anirudh Wang Primary Care Unavailable Devi, Imadolfo Admitting Unavailable Anirudh Wang Primary Care Unavailable Ryan Cornell Admitting Unavailable Ryan Cornell Attending Unavailable Anirudh Wang Primary Care Unavailable Ryan Cornell Admitting Unavailable Ryan Cornell Attending Unavailable Tricia Weiss Unavailable Igor Boswell MD, Ashkan Unavailable UnavailGraham Proctor Attending Unavailable Graham VELAZQUEZ Attending Unavailable Graham VELAZQUEZ Attending Unavailable VELAZQUEZ, Graham R Admitting Unavailable DEVEN HANNA Attending Unavailable ANDREEA, Graham R Attending Unavailable VELAZQUEZ, Graham R Attending Unavailable ANDREEA, Graham R Attending Unavailable ANDREEA, Graham R Admitting Unavailable Anirudh Wang DO Primary Care Provider [phone] Billy Mata MD Attending Provider Adeline Anirudh GUZMAN Attending Provider Tricia Weiss MD Attending Provider Al Shweiki, Ashkan Attending Unavailable Al Shweiki, Ashkan Referring Unavailable Al Shweiki, Ashkan Attending Unavailable Al Shweiki, Ashkan Referring Unavailable Al Shweiki, Ashkan Attending Unavailable Al Shweiki, Ashkan Referring Unavailable Al Shweiki, Ashkan Attending Unavailable Al Shweiki, Ashkan Attending Unavailable Al Shweiki, Ashkan Referring Unavailable Al Shweiki, Ashkan Attending Unavailable Al Shweiki, Ashkan Referring Unavailable Al Shweiki, Ashkan Attending Unavailable Al Shweiki, Ashkan Referring Unavailable Al Ashkan Boswell MD Unavailable Unavailabl e Anirudh Wang DO Primary Care Provider Anirudh Wang DO Attending Provider Allergies Allergy Classification Reported Allergen(s) Allergy Type Date of Onset Reaction(s) Facility (20 sources) Doxycycline Drug Allergy Unknown [facility] Other (4 sources) patient allergy list reviewed by nurse or physicia Propensity to adverse reactions 9 Comment:Done [facility] Other (1 source) Doxycycline Drug Allergy Unknown [facility] Other (2 sources) Amoxicillin; Translations: [amoxicillin] Drug Allergy 7 Unknown [facility] Medications Current Medications Medication Drug Class(es) Dates Sig (Normalized) Sig (Original) amLODIPine 5 mg oral tablet (20 sources) Dihydropyridine Calcium Channel [place] Start: 12-16-2024 take 1 tablet by mouth once daily Start: 10-24-2024 End: 12-16-2024 take 1 tablet by mouth once daily Amlodipine 5 mg tablet Discontinued 0 .ROUTE .COMPLEX 90 October 24, 2024 9:43am December 16, 2024 12:55pm TAKE 1 TABLET BY MOUTH EVERY DAY [...] take 1 tablet by mouth once daily take 1 tablet by leidy th every twenty-four hours Aspirin 81 81 MG 1 tablet Orally Once a day Active benazepril hydrochloride 10 mg oral tablet (20 sources) Angiotensin Converting Enzyme Inhibitor Start: 01-27-2025 take 1 tablet by mouth once daily Start: 01-23-2023 End: 01-27-2025 take 1 tablet by mouth once daily Benazepril 10 mg tablet Discontinued 10 MG PO Daily January 29, 2024 3:40pm January 27, 2025 7:36am Start: 11-11-2019 take 1 mg by mouth once daily benazepril 5 mg oral tablet mg tab(s), Oral, Daily, Refills(s) 0 Start Date: 11/11/19 Status: Ordered Repeat number: 1 calcium carbonate 1500 mg / cholecalciferol 500 unt oral capsule (19 sources) Vitamin D Start: 03-18-2024 take 1 capsule by mouth once daily dextran 70 1 mg/ml / hypromellose 3 mg/ml ophthalmic solution (2 sources) Plasma Volume Game [employer]visor Artificial Tears (PF) drops in a dropperette - Active escitalopram 10 mg oral tablet (20 sources) Serotonin Reuptake Inhibitor Start: 03-15-2025 take 1 tablet by mouth once daily Start: 12-16-2024 End: 03-15-2025 take 1 tablet by mouth once daily Escitalopram Oxalate 10 mg tablet Discontinued 10 MG PO Daily December 16, 2024 12:54pm March 15, 2025 7:41am Start: 06-14-2024 End: 12-16-2024 take 1 tablet by mouth once daily Escitalopram Oxalate 10 mg tablet Discontinued 0 .ROUTE .COMPLEX August 31, 2024 10:07am December 16, 2024 12:55pm TAKE 1 TABLET BY MOUTH EVERY DAY FOR 30 DAYS Start: 12-22-2023 End: 06-14-2024 take 1 tablet by mouth once daily Escitalopram Oxalate 10 mg tablet Discontinued 10 MG PO Daily May 03, 2024 9:45am June 14, 2024 8:43am Start: 12-15-2023 End: 05-03-2024 take 1 tablet [...] Active ketorolac tromethamine 4 mg/ml ophthalmic solution (3 sources) Nonsteroidal Anti-inflammatory Drug, Cyclooxygenase Inhibitor Start: [...] mg/mg / petrolatum 0.83 mg/mg ophthalmic ointment (2 sources) Artificial Eye Lubricant 83 %-15 % ointment [...] capsule by mouth once daily at bedtime Start: 11-25-2022 End: 03-18-2024 take 1 capsule by mouth once daily Tamsulosin (Flomax) 0.4 mg capsule Discontinued 0.4 MG PO Daily October 24, 2023 1:00am March 18, 2024 2:26pm vitamin B12 (3 sources) Vitamin B12 Start: 11-22-2019 Vitamin B12 Re fills(s) 0 Start Date: 11/22/19 Status: Ordered Repeat number: 1 Start: 11-22-2019 Vitamin B12 Re fills(s) 0 Start Date: 11/22/19 Status: Ordered Vitamin D (3 sources) Start: 11-20-2020 Vitamin D Inte rnational_Unit, Oral, Daily, Refills(s) 0 Start Date: 11/20/20 Status: Ordered Repeat number: 1 Start: 11-20-2020 Vitamin D Inte rnational_Unit, Oral, Daily, Refills(s) 0 Start Date: 11/20/20 Status: Ordered Completed/Discontinued Medications Medication Drug Class(es) Dates Sig (Normalized) Sig (Original) acetaminophen 325 mg / HYDROcodone bitartrate 5 mg oral tablet (20 sources) Opioid Agonist Start: 04-10-2023 End: 10-24-2023 take 1 tablet by mouth every six hours as needed for pain Hydrocodone-Acetami nophen 5-325 mg tablet Discontinued 1 TAB PO Q6H as needed for pain 25 01April 10, 2023 October 24, 2023 10:55am alendronic acid 70 mg effervescent oral tablet (20 sources) Bisphosphonate Start: 10-24-2023 End: 03-18-2024 Alendronate 70 mg tablet, effervescent Discontinued 70 MG PO Daily October 24, 2023 1:00am March 18, 2024 2:26pm 1 tablet 30 minutes before the first food, beverage or medicine of the day dissolved in 4 ounces of water Start: 10-24-2023 End: 03-18-2024 Alendronate Discontinued 70 [...] May, Active Alendronate 70 mg tablet, effervescent (9 sources) Start: 10-24-2023 End: 03-18-2024 Alendronate 70 [...] 1000 mcg cholecalciferol 0.025 mg oral tablet (20 sources) Vitamin D Start: 03-27-2023 End: 10-24-2023 take 1 tablet by mouth once daily Cholecalciferol (Vitamin D3) (Vitamin D3) 25 mcg (1,000 unit) Tablet Discontinued 1000 UNIT PO Daily March 27, 2023 12:00am October 24, 2023 10:54am Cyanocobalamin (Vitamin B-12) (Vitamin B-12) 100 mcg/mL Solution (20 sources) Start: 03-27-2023 End: 10-24-2023 Cyanocobalamin (Vitamin [...] oral tablet (20 sources) Start: 09-27-2022 End: 02-07-2025 take 1 tablet by mouth once daily Folic Acid 1 mg tablet Discontinued 1 MG PO Daily January 23, 2023 12:00am January 29, 2024 3:40pm Start: 11-22-2019 take 1 tablet by leidy th once daily folic acid 0.4 mg Tab 0.4 mg = 1 tab(s), Oral, Daily, # 100 tab(s), Refills(s) 0 Start Date: 11/22/19 Status: Ordered Quantity: 100.0 Unit: tab(s) Repeat number: 1 LORazepam 0.5 mg oral tablet (20 sources) [...] recurrent] Onset: 04-10-2023 12-22-2020 Episodic Abdominal pain (19 sources) Left lower quadrant pain; Translations: [Left [...] [Other specified diseases of gallbladder] 12-18-2020 Episodic Blindness and vision defects (3 sources) Diplopia; Translations: [Diplopia] Onset: 04-04-2025 Episodic Cataract (20 sources) Age-related nuclear cataract, [...] Onset: 12-05-2022 Episodic Deficiency and other anemia (14 sources) Megaloblastic anemia due to poor nutrition; Translations: [Dietary folate deficiency anemia] Resolved: 09-18-2021 12-18-2020 Episodic Deficiency and other anemia (13 sources) Nutritional anemia; Translations: [Nutritional anemia, unspecified] [...] 09-27-2022 Chronic Genitourinary symptoms and ill-defined conditions (3 sources) Urge incontinence of urine 11-22-2019 Chronic Genitourinary symptoms and ill-defined conditions (20 sources) Nocturia; Translations: [Nocturia] 01-13-2025 Episodic Gout and other crystal arthropathies (20 [...] Onset: 01-01-2017 Episodic Nephritis; nephrosis; renal sclerosis (3 sources) Atrophy of kidney; Translations: [Atrophy of kidney (terminal)] Onset: 12-22-2023 Chronic Nonspecific chest pain (20 sources) Chest pain; Translations: [Other chest pain] Episodic Nutritional deficiencies (20 sources) Vitamin D deficiency; Translations: [Vitamin D deficiency, unspecified] 04-03-2024 Chronic Osteoporosis (20 sources) Osteoporosis; Translations: [Other osteoporosis without current pathological fracture] Chronic Other aftercare (2 sources) Other fpc (current) drug therapy; Translations: [[employer] CURRENT DRUG THERAPY] Onset: 02-05-2023 Episodic Other diseases of kidney and ureters (1 source) Urinary tract obstruction; Translations: [Other obstructive and reflux uropathy] Onset: 12-20-2024 Episodic Other diseases of veins and lymphatics (20 sources) Venous insufficiency of leg; Translations: [Venous insufficiency (chronic) (peripheral)] 11-05-2023 Episodic Other diseases of veins and lymphatics (20 sources) Venous insufficiency (chronic) (peripheral); Translations: [Venous [...] Episodic Other ear and sense organ disorders (7 sources) Tinnitus; Translations: [Unspecified tinnitus] Onset: 09-06-2016 12-18-2020 Episodic Comment on above: Bilateral Other eye disorders (20 sources) Vitreous degeneration, bilateral Chronic Other eye disorders (2 sources) Dry eyes; Translations: [Dry eyes] Episodic Other eye disorders (2 sources) Ptosis of eyelid; Translations: [Ptosis of eyelid] Episodic Other eye disorders (3 sources) Unspecified ptosis of bilateral eyelids; Translations: [Ptosis, bilateral] Onset: 04-30-2024 Episodic Other eye disorders (2 sources) Dry eye syndrome of bilateral lacrimal glands; [...] Translations: [Constipation, unspecified] Episodic Other gastrointestinal disorders (3 sources) Alteration in bowel elimination 12-22-2020 Episodic [...] source) Change in bowel habit Episodic Other hereditary and degenerative nervous system conditions (5 sources) Impaired cognition; Translations: [Mild cognitive impairment, so stated] 01-16-2025 Chronic Other hereditary and degenerative nervous system conditions (2 sources) Mild cognitive impairment, so stated; Translations: [Mild cognitive impairment, so stated] 01-18-2025 Chronic Other injuries and conditions due to external [...] lung field] Episodic Other nervous system disorders (20 sources) Acute postoperative pain; Translations: [Other acute postprocedural pain] 08-20-2023 Episodic Comment on above: Problem List clean-u p per request of Phys. EHR Cmte Other non-epithelial cancer of skin (6 sources) Squamous cell carcinoma of skin of left upper limb, including shoulder; Translations: [Squamous cell carcinoma of skin of upper limb, including shoulder] 12-16-2024 Episodic Other nutritional; endocrine; and metabolic disorders [...] [Encounter for screening for depression] Episodic Unclassified (3 sources) Body mass index 20-24 - normal [...] [Pneumonia, unspecified organism] Onset: 01-02-2019 Episodic Unclassified (20 sources) BRVO (chief complaint) Onset: 07-12-2020 Resolved: 08-30-2024 Unclassified (2 sources) BRVO with ME (chief complaint) Onset: 06-07-2024 Unclassified (2 sources) retinal vein occlusion (chief complaint) Onset: 04-30-2024 Unclassified (2 sources) branch retinal vein occlusion (chief complaint) Onset: 10-21-2023 Unclassified (2 sources) discomfort like a toothache (chief complaint) Onset: 08-21-2023 Unclassified (4 sources) 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) Stable Vision (chief complaint) Onset: 03-04-2022 Resolved: 06-24-2022 Unclassified (2 sources) BRVO (chief complaint) Increased Vision (chief complaint) Onset: 01-07-2022 Unclassified (2 sources) decreased vision (chief complaint) Onset: 11-21-2021 Unclassified (2 sources) possible CME OS per . (chief complaint) reports gradual vision improvement (chief complaint) Onset: 10-31-2021 Unclassified (4 sources) BRVO (chief complaint) decreased vision (chief complaint) Onset: 01-06-2019 Resolved: 10-15-2021 Unclassified (2 sources) BRVO (chief complaint) no vision changes (chief complaint) Onset: 06-06-2021 Unclassified (2 sources) 2 mo fu due to BRVO w/ mac edema (chief complaint) Stable vision (chief complaint) Onset: 09-06-2020 Unclassified (6 sources) BRVO (chief complaint) stable vision (chief complaint) Onset: 07-07-2019 Resolved: 01-05-2020 Unclassified (2 sources) BRVO (chief complaint) increased (chief complaint) Onset: 04-14-2019 Unclassified (2 sources) BRVO with edema (chief complaint) increase in vision (chief complaint) Onset: 02-17-2019 Unclassified (4 sources) vein occlusion (chief complaint) denies vision changes (chief complaint) Onset: 01-14-2018 Resolved: 10-07-2018 Unclassified (2 sources) vein occlusion (chief complaint) decrease in vision (chief complaint) Onset: 08-05-2018 Unclassified (2 sources) vein occlusion (chief complaint) burry vision (chief complaint) denies vision change (chief complaint) Onset: 04-15-2018 Unclassified (2 sources) vein occlusion (chief complaint) stable vision (chief complaint) Onset: 02-18-2018 Unclassified (2 sources) vein occlusion (chief complaint) blurry vision (chief complaint) denies vision changes (chief complaint) Onset: 12-10-2017 Unclassified (2 sources) BRVO (chief complaint) denies vision change (chief complaint) new medication (chief complaint) Onset: 11-19-2017 Unclassified (2 sources) BRVO (chief complaint) blurry vision (chief complaint) no visual changes (chief complaint) Onset: 10-14-2017 Unclassified (2 sources) BRVO (chief complaint) reports stable vision (chief complaint) Onset: 09-10-2017 Unclassified (2 sources) vein occlusion (chief complaint) slight decrease in vision (chief complaint) distorted vision (chief complaint) Onset: 07-30-2017 Unclassified (2 sources) vision changes (chief complaint) blurry vision (chief complaint) reports no visual changes (chief complaint) Onset: 06-23-2017 Unclassified (2 sources) vein occlusion (chief complaint) small black floater, with no vision changes (chief complaint) denies any vision changes (chief complaint) Onset: 05-13-2017 Unclassified (2 sources) BRVO with macular edema (chief complaint) blurry vision (chief complaint) stable vision (chief complaint) Onset: 04-02-2017 Unclassified (2 sources) BRVO with macular edema (chief complaint) reports no visual changes (chief complaint) Onset: 02-12-2017 Unclassified (2 sources) BRVO with macular edema (chief complaint) red dots (chief complaint) Onset: 01-08-2017 Unclassified (2 sources) referred by Dr. Zayas for a retinal occlusion (chief complaint) flashes (chief complaint) blurriness in vision (chief complaint) Onset: 12-11-2016 Viral infection (11 sources) Disease caused by 2019-nCoV; Translations: [COVID-19] Resolved: 02-18-2022 Results Test Name Value Interpretation Reference Range Facility Laboratory - Chemistry and C hemistry - challengeon 01-13-2025 Bilirubin Ql (U) Negative [facility] Glucose (U) [Mass/Vol] Negative [facility] Ketones Ql (U) Negative [facility] pH (U) 5 [pH] [facility] Specific gravity (U) [Rel density] 1.000 [facility] Urobilinogen (U) [Mass/Vol] 0.2 mg/dL [facility] Laboratory - Specimen inform ationon 01-13-2025 Appearance (U) clear [facility] Color (U) yellow [facility] Laboratory - Urinalysison Leukocyte esterase Test strip Ql (U) Negative [facility] Nitrite Ql (U) Negative [facility] Protein Ql (U) Negative [facility] No Panel Informationon 01-13 Urine Occult Blood Negative [facility] Ambulatory Visit Summaryon 0 12-27-2024 Ambulatory Visit Summary Ambulatory Visi t Summary MARCELINO ESCOBAR :1950 Visit Date:12/27/2024 Ambulatory Visit Instructions Your Diagnosis BPH with urinary obstruction ED (erectile dysfunction) Renal atrophy Your Care Team Attending Physician - Graham VELAZQUEZ MD Primary Care Physician - ANIRUDH WANG DO This Is Your Medications List Contact prescribing physician if questions or concerns amlodipine (amLODIPine 5 mg Tab) aspirin (aspirin 81 mg Oral EC Tab) benazepril (benazepril 5 mg oral tablet) cyanocobalamin (Vitamin B12) ergocalciferol (Vitamin D) escitalopram (escitalopram 10 mg Tab) folic acid (folic acid 0.4 mg Tab) lorazepam (LORazepam 0.5 mg Tab) tamsulosin (tamsulosin 0.4 mg Cap) Procedures Performed Laparoscopic cholecystostomy (09/08/2013), Colonoscopy (09/08/2011), EGD (esophagogastroduode noscopy) gastric outlet reduction (09/08/2011), Repair of left inguinal hernia (09/08/1974), Blepharoplasty, History of knee surgery, vasectomy. Discharge Vitals Temperature (Temporal Artery) 37 ???C Heart Rate (Peripheral) 71 Respiratory Rate 17 Blood Pressure 135/83 Height 180 cm Height 71 in Weight 86.5 kg Weight 190.7 lb BMI 26.7 What to do next You Need to Schedule the Following Appointments Follow Up with ANDREEA DIXON, Graham Ruby, BILLY When: Where: [facility] [address] [place] [address] [phone] Medications What How Much When Instructions Unchanged amlodipine (amLODIPine 5 mg Tab) Contact prescribing physician if questions or concerns Unchanged aspirin (aspirin 81 mg Oral EC Tab) By Mouth Every day Contact prescribing physician if questions or concerns Unchanged benazepril (benazepril 5 mg oral tablet) By Mouth Every day Contact prescribing physician if questions or concerns Unchanged cyanocobalamin (Vitamin B12) Contact prescribing physician if questions or concerns Unchanged ergocalciferol (Vitamin D) By Mouth Every day Contact prescribing physician if questions or concerns Unchanged escitalopram (escitalopram 10 mg Tab) Contact prescribing physician if questions or concerns Unchanged folic acid (folic acid 0.4 mg Tab) 1 Tablets By Mouth Every day Contact prescribing physician if questions or concerns Unchanged lorazepam (LORazepam 0.5 mg Tab) Contact prescribing physician if questions or concerns Unchanged tamsulosin (tamsulosin 0.4 mg Cap) Contact prescribing physician if questions or concerns Allergies No Known Allergies Problems Ongoing - Any problem that you are currently receiving treatment for. Abdominal pain, left lower quadrant BMI 23.0-23.9, adult BPH with urinary obstruction Celiac disease Constipation in male ED (erectile dysfunction) Hypertension Left inguinal hernia Renal atrophy Urge incontinence Historical - Any problem that you are no longer receiving treatment for. Acute injury of kidney Biliary dyskinesia Dietary folate deficiency anemia Nutritional anemia Pernicious anemia Retinal vein occlusion Sensorineural hearing loss Tinnitus Patient Survey You may receive a survey via text or e-mail asking about your office visit. Please share your experience with us by completing your survey. We appreciate your feedback and thank you for choosing us for your care. Education Materials Benign Prostatic Hyperplasia Benign prostatic hyperplasia (BPH) [...] or symptoms? Symptoms of this condition include: ??? Getting up often during the night to urinate. ??? Needing to urinate frequently during the day. ??? Difficulty starting urine flow. ??? Decrease in size and strength of your urine stream. ??? Leaking (dribbling) after urinating. ??? Inability to pass urine. This needs immediate treatment. ??? Inability to completely empty your bladder. ??? Pain when you pass urine. This is more common if there is also an infection (more content not included)... Normal [facility] Urology Office/Clinic Noteon 12-27-2024 Urology Office/Clinic Note Urology Office/Clinic Note Chief Complaint 1 year with PSA HPI Staff 74 yr old male here for 1 yr f/u w/ PSA Dx: BPH with urinary obstruction Tamsulosin 0.4mg qd (PCP manages) PSA 12/09/23 - 1.96 12/20/24 - 1.9 IPSS score today is 3. Denies any urinary concerns at this time. History of Present Illness Tests reviewed: reviewed UA, PSA I have reviewed the previous health record [...] Physical Exam Vitals & Measurements T: 37 ???C(Temporal Artery) HR: 71(Peripheral) RR: 17 BP: 135/83 HT: 71 in HT: 180 cm WT: 86.5 kg WT: 190.7 lb BMI: 26.7 General Appearance: alert, no distress, well nourished, well developed male. Assessment/Plan 1. BPH with urinary obstruction (N40.1: Benign prostatic hyperplasia with lower urinary tract symptoms) PSA: 11/08/20 - 1.43 11/14/21 - 1.60 11/18/22 - 1.16 12/09/23 - 1.96 12/20/24 - 1.9 IPSS 3. UA today negative for blood and infection. Taking Tamsulosin 0.4mg qd per PCP. Good stream. Feels he empties. Shares he delays urination and will have leakage at times. Recommended timed voids. PSA remains stable. Pt wishes to continue to monitor level. -Cont Tamsulosin as above -Timed voids q2-3hrs -F/u in1 yr w/ PSA 2. ED (erectile dysfunction) (N52.9: Male erectile dysfunction, unspecified) Shares interest in trying medications. Discussed risks/benefits/possi ble SEs. Pt not taking any nitro products. -Start Tadalafil 20mg prn. Recommended GoodRx (coupon provided). Rx sent to [facility]. 3. Renal atrophy (N26.1: Atrophy of kidney (terminal)) ROBERT 12/16/23 [facility] (ordered by Dr. Wang due to CKD) - bilateral renal cortical atrophy with increased cortical echotexture suggests medical renal disease. 12/10/23 - BUN 29. Cr 2.02. eGFR 32. [1] Now follows with nephrology q6mos. Follow-up With When Contact Information ANDREEA DIXON, Graham Ruby, URL [facility] [address], [place] [address] [phone] Additional Instructions: 1 yr w/ PSA Patient Education Benign Prostatic Hyperplasia I, Anita Magana, personally scribed for Dr. Velazquez on 12/27/2024 10:45:20. . Documentation recorded by the scribe, Anita Magana, accurately reflects the services(s) I performed and decisions made by me. Authenticated by Dr. Velazquez on 12/27/2024 10:46:06. Problem List/Past Medical History Ongoing Abdominal pain, left lower quadrant BMI 23.0-23.9, adult BPH with urinary obstruction Celiac disease Constipation in male ED (erectile dysfunction) Hypertension Left inguinal hernia Renal atrophy Urge incontinence Historical Acute injury of kidney Biliary dyskinesia Dietary folate deficiency anemia Nutritional anemia Pernicious anemia Retinal vein occlusion Sensorineural hearing loss Tinnitus Procedure/Surgical History Laparoscopic cholecystostomy (09/08/2013), Colonoscopy (09/08/2011), EGD (esophagogastroduode noscopy) gastric outlet reduction (09/08/2011), Repair of left inguinal hernia (09/08/1974), Blepharoplasty, History of knee surgery, vasectomy. Medications amLODIPine [...] Smokeless Tobacco Use:. Household tobacco concerns: No., 12/27/2024 Family History Metastatic cancer: Father. Parkinson disease: Mother. Immunizations Vaccine Date Status Comments influenza virus vaccine, inactivated - Not Given Patient Refuses influenza virus vaccine, live, trivalent - Not Given Patient Refuses Lab Results Ambulatory Point of Care Results Bilirubin Urine Dipstick: Negative (12/27/24 09:50:00) Blood Urine Dipstick: Negative (12/27/24 09:50:00) Glucose Urine Dipstick: Negative (12/27/24 09:50:00) Ketones Urine Dipstick: Negative (12/27/24 09:50:00) Leukocytes Urine Dipstick: Negative (12/27/24 09:50:00) Nitrite Urine Dipstick: Negative (12/27/24 09:50:00) Protein Urine Dipstick: 1+ (30 mg/dl) (12/27/24 09:50:00) Specif (more content not included)... Normal [facility] Comment on above: Result Comment: Elec tronically Signed By: Graham VELAZQUEZ MD\.br\Date and Time Signed: 12/27/24 10:46 EDT\.br\Electronically Co-Signed By: Anita Magana\.br\Date and Time Co-Signed: 12/27/24 10:45 EDT CHEMISTRYOrdered By: SYSTEM SYSTEM on 12-20-2024 Prostate specific Ag [Mass/Vol] 1.9 ng/mL Normal 0.1 - 3.5 ng/mL [facility] Comment on above: Interpretive Data: T he concentration of PSA determined by different manufacturers can vary due to differences in assay methods and reagent specificity. Values obtained from different assay methods cannot be used interchangeably. The methodology used for this result was chemiluminescence using [employer]'s Access Hybritech PSA reagent. PSA Totalon 12-20-2024 Prostate specific Ag [Mass/Vol] 1.9 ng/mL Normal 0.1-3.5 [facility] Comment on above: Result Comment: The concentration of PSA determined by different manufacturers can vary due to differences in assay methods and reagent specificity. Values obtained from different assay methods cannot be used interchangeably. The methodology used for this result was chemiluminescence using [employer]'s Access Hybritech PSA reagent. Performed By: #### 1 [id number] #### [facility] [address] [place] [address] Erythrocyte distribution wid th Auto (RBC) [Ratio]on 12-06-2024 Erythrocyte distribution width (RBC) [Ratio] Erythrocyte distribution width [Ratio] by Automated count 11.0-15.0 [facility] Estimated glomerular filtrat ion rate (GFR) non- Americanon 12-06-2024 GFR/1.73 sq M.predicted among non-blacks MDRD (S/P/Bld) [Vol rate/Area] Estimated glomerular filtration rate (GFR) non- Low >=60 mL/min/1.73 m 2 [facility] Hematocrit Auto (Bld) [Volum e fraction]on 12-06-2024 Hematocrit (Bld) [Volume fraction] Hematocrit [Volume Fraction] of Blood by Automated count 42.0-54.0 [facility] Hemoglobin [Mass/volume] in Bloodon 12-06-2024 Hemoglobin (Bld) [Mass/Vol] Hemoglobin [Mass/volume] in Blood 14.0-18.0 [facility] Laboratory - Chemistry and C hemistry - challengeon 12-06-2024 Albumin [Mass/Vol] 3.8 g/dL 3.4-5.0 [facility] Calcium [Mass/Vol] 8.8 mg/dL 8.5-10.1 [facility] Chloride [Moles/Vol] 105 mmol/L 98-107 [facility] CO2 [Moles/Vol] 30.0 mmol/L 21.0-32.0 [facility] Creatinine [Mass/Vol] 1.62 mg/dL High 0.70-1.30 [facility] GFR/1.73 sq M.predicted MDRD (S/P/Bld) [Vol rate/Area] 51 mL/min/{1.73_m2} Low >=60 mL/min/1.73 m 2 [facility] Glucose [Mass/Vol] 86 mg/dL 74-106 [facility] Magnesium [Mass/Vol] 2.0 mg/dL 1.8-2.4 [facility] Potassium [Moles/Vol] 5.0 mmol/L 3.5-5.1 [facility] Sodium [Moles/Vol] 141 mmol/L 136-145 [facility] Urate [Mass/Vol] 6.7 mg/dL 3.5-7.2 [facility] Urea nitrogen [Mass/Vol] 25.0 mg/dL High 7.0-18.0 [facility] Urea nitrogen/Creatinine [Mass ratio] 15.4 mg/mg [facility] Laboratory - Urinalysison Protein (U) [Mass/Vol] 24.3 mg/dL High <=11.9 [facility] Leukocytes [#/volume] correc denis for nucleated erythrocytes in Blood by Automated counon 12-06-2024 WBC corrected for nucl RBC Auto (Bld) [#/Vol] Leukocytes [#/volume] corrected for nucleated erythrocytes in Blood by Automated coun 4.0-11.0 [facility] MCH Auto (RBC) [Entitic mass ]on 12-06-2024 MCH (RBC) [Entitic mass] MCH [Entitic ma ss] by Automated count 25.9-34.0 [facility] MCHC Auto (RBC) [Mass/Vol]on 12-06-2024 MCHC (RBC) [Mass/Vol] MCHC [Mass/volume] by Automated count 29.9-35.2 [facility] MCV Auto (RBC) [Entitic vol] on 12-06-2024 MCV (RBC) [Entitic vol] MCV [Entitic vol ume] by Automated count High 80.0-94.0 [facility] No Panel Informationon 12-06 25-Hydroxy Vitamin D Total 37.1 ng/mL [facility] Comment on above: <20 ng/mL Vit D defi cient20-<30 ng/mL Vit D [id number] ng/mL Vit D sufficient>100 ng/mL Potential Toxicity Parathyroid Hormone (Intact) 47 pg/mL 15-65 [facility] Comment on above: Performed at: [facility] [employer] [address] [id number] Director: Vinny Alexander PhD, Phone: [phone] Phosphorus Level 2.6 mg/dL 2.6-4.7 [facility] Urine Random Creatinine 96.62 mg/dL 20.0 0-300.0 0 [facility] Platelet mean volume Auto (B ld) [Entitic vol]on 12-06-2024 Platelet mean volume (Bld) [Entitic vol] Platelet mean volume [Entitic volume] in Blood by Automated count 9.5-13.5 [facility] Platelets Auto (Bld) [#/Vol] on 12-06-2024 Platelets (Bld) [#/Vol] Platelets [#/vol ume] in Blood by Automated count 150-450 [facility] RBC Auto (Bld) [#/Vol]on RBC (Bld) [#/Vol] Erythrocytes [#/volume] in Blood by Automated count Low 4.70-6.10 [facility] Serum or plasma anion gap de terminationon 12-06-2024 Anion gap [Moles/Vol] Serum or plasma anion gap determination [facility] Urine protein/creatinine rat ioon 12-06-2024 Protein/Creatinine (U) [Ratio] Urine protein/creatinine ratio [facility] Basophils Auto (Bld) [#/Vol] on 10-14-2024 Basophils (Bld) [#/Vol] Automated basoph il count 0.0-0.1 [facility] Basophils/100 WBC Auto (Bld) on 10-14-2024 Basophils/100 WBC (Bld) Automated basophil % 0. 2-2.0 [facility] Eosinophils/100 WBC Auto (Bl d)on 10-14-2024 Eosinophils/100 WBC (Bld) Automated eosinophil % 0.9-7.0 [facility] Erythrocyte distribution wid th Auto (RBC) [Ratio]on 10-14-2024 Erythrocyte distribution width (RBC) [Ratio] Erythrocyte distribution width [Ratio] by Automated count 11.0-15.0 [facility] Hematocrit Auto (Bld) [Volum e fraction]on 10-14-2024 Hematocrit (Bld) [Volume fraction] Hematocrit [Volume Fraction] of Blood by Automated count 42.0-54.0 [facility] Hemoglobin [Mass/volume] in Bloodon 10-14-2024 Hemoglobin (Bld) [Mass/Vol] Hemoglobin [Mass/volume] in Blood Low 14.0-18.0 [facility] Laboratory - Hematology and Cell countson 10-14-2024 Immature granulocytes/100 WBC (Bld) 0.5 % 0.0-0.5 [facility] Leukocytes [#/volume] correc denis for nucleated erythrocytes in Blood by Automated counon 10-14-2024 WBC corrected for nucl RBC Auto (Bld) [#/Vol] Leukocytes [#/volume] corrected for nucleated erythrocytes in Blood by Automated coun 4.0-11.0 [facility] Lymphocytes Auto (Bld) [#/Vo l]on 10-14-2024 Lymphocytes (Bld) [#/Vol] Lymphocytes [#/volume] in Blood by Automated count 1.2-3.8 [facility] Lymphocytes/100 WBC Auto (Bl d)on 10-14-2024 Lymphocytes/100 WBC (Bld) Lymphocytes/100 leukocytes in Blood by Automated count 20.5-60.0 [facility] MCH Auto (RBC) [Entitic mass ]on 10-14-2024 MCH (RBC) [Entitic mass] MCH [Entitic ma ss] by Automated count 25.9-34.0 [facility] MCHC Auto (RBC) [Mass/Vol]on 10-14-2024 MCHC (RBC) [Mass/Vol] MCHC [Mass/volume] by Automated count 29.9-35.2 [facility] MCV Auto (RBC) [Entitic vol] on 10-14-2024 MCV (RBC) [Entitic vol] MCV [Entitic vol ume] by Automated count High 80.0-94.0 [facility] Monocytes Auto (Bld) [#/Vol] on 10-14-2024 Monocytes (Bld) [#/Vol] Automated blood monocyte count High 0.3-0.8 [facility] Monocytes/100 WBC Auto (Bld) on 10-14-2024 Monocytes/100 WBC (Bld) Automated monocyte % High 1. 7-12.0 [facility] Neutrophils Auto (Bld) [#/Vo l]on 10-14-2024 Neutrophils (Bld) [#/Vol] Neutrophils [#/volume] in Blood by Automated count 1.4-6.5 [facility] Neutrophils/100 WBC Auto (Bl d)on 10-14-2024 Neutrophils/100 WBC (Bld) Automated neutrophil % 43.0-75.0 [facility] No Panel Informationon 10-14 Eosinophils # (Auto) 0.2 10 3/uL 0.0-0.7 [facility] Immature Granulocyte # (Auto) 0.03 10 3/uL 0.00-0.03 [facility] Platelet mean volume Auto (B ld) [Entitic vol]on 10-14-2024 Platelet mean volume (Bld) [Entitic vol] Platelet mean volume [Entitic volume] in Blood by Automated count 9.5-13.5 [facility] Platelets Auto (Bld) [#/Vol] on 10-14-2024 Platelets (Bld) [#/Vol] Platelets [#/vol ume] in Blood by Automated count 150-450 [facility] RBC Auto (Bld) [#/Vol]on RBC (Bld) [#/Vol] Erythrocytes [#/volume] in Blood by Automated count Low 4.70-6.10 [facility] Erythrocyte distribution wid th Auto (RBC) [Ratio]on 06-22-2024 Erythrocyte distribution width (RBC) [Ratio] 12.6 % 11.0-15.0 [facility] Erythrocyte distribution width (RBC) [Ratio] Erythrocyte distribution width [Ratio] by Automated count 11.0-15.0 [facility] Estimated glomerular filtrat ion rate (GFR) non- Americanon 06-22-2024 GFR/1.73 sq M.predicted among non-blacks MDRD (S/P/Bld) [Vol rate/Area] 40 mL/min/{1.73_m2} Low >=60 mL/min/1.73 m 2 [facility] GFR/1.73 sq M.predicted among non-blacks MDRD (S/P/Bld) [Vol rate/Area] Estimated glomerular filtration rate (GFR) non- Low >=60 mL/min/1.73 m 2 [facility] Hematocrit Auto (Bld) [Volum e fraction]on 06-22-2024 Hematocrit (Bld) [Volume fraction] 45.1 % 42.0-54.0 [facility] Hematocrit (Bld) [Volume fraction] Hematocrit [Volume Fraction] of Blood by Automated count 42.0-54.0 [facility] Hemoglobin [Mass/volume] in Bloodon 06-22-2024 Hemoglobin (Bld) [Mass/Vol] 14.6 g/dL 14.0-18.0 [facility] Hemoglobin (Bld) [Mass/Vol] Hemoglobin [Mass/volume] in Blood 14.0-18.0 [facility] Iron binding capacity [Mass/ volume] in Serum or Plasmaon 06-22-2024 Iron binding capacity [Mass/Vol] 317.0 ug/dL 250.0-450.0 [facility] Iron binding capacity [Mass/Vol] Iron binding capacity [Mass/volume] in Serum or Plasma 250.0-450.0 [facility] Iron saturation [Mass Fracti on] in Serum or Plasmaon 06-22-2024 Iron saturation [Mass fraction] 30.3 % [facility] Iron saturation [Mass fraction] Iron saturation [Mass Fraction] in Serum or Plasma [facility] Laboratory - Chemistry and C hemistry - challengeon 06-22-2024 Albumin [Mass/Vol] 3.9 g/dL 3.4-5.0 [facility] Calcium [Mass/Vol] 9.2 mg/dL 8.5-10.1 [facility] Chloride [Moles/Vol] 105 mmol/L 98-107 [facility] CO2 [Moles/Vol] 28.9 mmol/L 21.0-32.0 [facility] Creatinine [Mass/Vol] 1.67 mg/dL High 0.70-1.30 [facility] Ferritin [Mass/Vol] 53.0 ng/mL 26.0-388.0 [facility] GFR/1.73 sq M.predicted MDRD (S/P/Bld) [Vol rate/Area] 49 mL/min/{1.73_m2} Low >=60 mL/min/1.73 m 2 [facility] Glucose [Mass/Vol] 121 mg/dL High 74-106 [facility] Iron [Mass/Vol] 96.0 ug/dL 65.0-175.0 [facility] Magnesium [Mass/Vol] 2.2 mg/dL 1.8-2.4 [facility] Potassium [Moles/Vol] 5.0 mmol/L 3.5-5.1 [facility] Sodium [Moles/Vol] 141 mmol/L 136-145 [facility] Urate [Mass/Vol] 6.9 mg/dL 3.5-7.2 [facility] Urea nitrogen [Mass/Vol] 26.0 mg/dL High 7.0-18.0 [facility] Urea nitrogen/Creatinine [Mass ratio] 15.6 mg/mg [facility] Bilirubin Ql (U) Negative NEGATIVE [facility] Glucose (U) [Mass/Vol] Negative NEGATIVE [facility] Ketones Ql (U) Negative NEGATIVE [facility] pH (U) 6.0 [pH] 5.0-9.0 [facility] Specific gravity (U) [Rel density] 1.015 1.005-1.025 [facility] Urobilinogen Qn (U) 0.2 {Aimee'U}/dL 0.2-1.0 [facility] Laboratory - Specimen inform ationon 06-22-2024 Appearance (U) CLEAR CLEAR [facility] Color (U) LT. YELLOW YELLOW [facility] Laboratory - Urinalysison Leukocyte esterase Test strip Ql (U) Negative NEGATIVE [facility] Mucus Ql (Urine sed) NONE SEEN NONE SEEN [facility] Nitrite Ql (U) Negative NEGATIVE [facility] Protein (U) [Mass/Vol] 21.1 mg/dL High <=11.9 [facility] Protein Ql (U) Negative NEG/TRACE [facility] Leukocytes [#/volume] correc denis for nucleated erythrocytes in Blood by Automated counon 06-22-2024 WBC corrected for nucl RBC Auto (Bld) [#/Vol] 5.1 10 3/uL 4.0-11.0 [facility] WBC corrected for nucl RBC Auto (Bld) [#/Vol] Leukocytes [#/volume] corrected for nucleated erythrocytes in Blood by Automated coun 4.0-11.0 [facility] MCH Auto (RBC) [Entitic mass ]on 06-22-2024 MCH (RBC) [Entitic mass] 31.2 pg 25.9-34.0 [facility] MCH (RBC) [Entitic mass] MCH [Entitic ma ss] by Automated count 25.9-34.0 [facility] MCHC Auto (RBC) [Mass/Vol]on 06-22-2024 MCHC (RBC) [Mass/Vol] 32.4 g/dL 29.9-35.2 [facility] MCHC (RBC) [Mass/Vol] MCHC [Mass/volume] by Automated count 29.9-35.2 [facility] MCV Auto (RBC) [Entitic vol] on 06-22-2024 MCV (RBC) [Entitic vol] 96.4 fL High 80.0-94.0 [facility] MCV (RBC) [Entitic vol] MCV [Entitic vol ume] by Automated count High 80.0-94.0 [facility] No Panel Informationon 06-22 Parathyroid Hormone (Intact) 41 pg/mL 15 [facility] Comment on above: Performed at: [address] [id number] Director: Vinny Alexander PhD, Phone: [phone] Phosphorus Level 2.5 mg/dL Low 2.6-4.7 [facility] Urine Bacteria TRACE #/HPF Abnormal NONE SEEN [facility] Urine Occult Blood Negative NEGATIVE [facility] Urine Other Casts NONE SEEN #/LPF NONE SEEN [facility] Urine Other Crystals None Seen #/HPF None Seen [facility] Urine Random Creatinine 104.02 mg/dL 20.0 0-300.0 0 [facility] Urine RBC NONE SEEN #/HPF 0-2 [facility] Urine Squamous Epithelial Cells RARE #/LPF NONE/RARE [facility] Urine WBC NONE SEEN #/HPF NONE SEEN [facility] Platelet mean volume Auto (B ld) [Entitic vol]on 06-22-2024 Platelet mean volume (Bld) [Entitic vol] 9.8 fL 9.5-13.5 [facility] Platelet mean volume (Bld) [Entitic vol] Platelet mean volume [Entitic volume] in Blood by Automated count 9.5-13.5 [facility] Platelets Auto (Bld) [#/Vol] on 06-22-2024 Platelets (Bld) [#/Vol] 234 10 3/uL 150-450 [facility] Platelets (Bld) [#/Vol] Platelets [#/vol ume] in Blood by Automated count 150-450 [facility] RBC Auto (Bld) [#/Vol]on RBC (Bld) [#/Vol] 4.68 10 6/uL Low 4.70-6.10 [facility] RBC (Bld) [#/Vol] Erythrocytes [#/volume] in Blood by Automated count Low 4.70-6.10 [facility] Serum or plasma anion gap de terminationon 06-22-2024 Anion gap [Moles/Vol] 12.1 [facility] Anion gap [Moles/Vol] Serum or plasma anion gap determination [facility] Urine protein/creatinine rat ioon 06-22-2024 Protein/Creatinine (U) [Ratio] 0.20 [facility] Protein/Creatinine (U) [Ratio] Urine protein/creatinine ratio [facility] Erythrocyte distribution wid th Auto (RBC) [Ratio]on 03-19-2024 Erythrocyte distribution width (RBC) [Ratio] 12.8 % 11.0-15.0 [facility] Estimated glomerular filtrat ion rate (GFR) non- Americanon 03-19-2024 GFR/1.73 sq M.predicted among non-blacks MDRD (S/P/Bld) [Vol rate/Area] 36 mL/min/{1.73_m2} Low >=60 [facility] Hematocrit Auto (Bld) [Volum e fraction]on 03-19-2024 Hematocrit (Bld) [Volume fraction] 42.1 % 42.0-54.0 [facility] Hemoglobin [Mass/volume] in Bloodon 03-19-2024 Hemoglobin (Bld) [Mass/Vol] 13.7 g/dL Low 14.0-18.0 [facility] Laboratory - Chemistry and C hemistry - challengeon 03-19-2024 Albumin [Mass/Vol] 3.8 g/dL 3.4-5.0 [facility] Calcium [Mass/Vol] 8.8 mg/dL 8.5-10.1 [facility] Chloride [Moles/Vol] 105 mmol/L 98-107 [facility] CO2 [Moles/Vol] 25.8 mmol/L 21.0-32.0 [facility] Creatinine [Mass/Vol] 1.83 mg/dL High 0.70-1.30 [facility] GFR/1.73 sq M.predicted MDRD (S/P/Bld) [Vol rate/Area] 44 mL/min/{1.73_m2} Low >=60 [facility] Glucose [Mass/Vol] 108 mg/dL High 74-106 [facility] Magnesium [Mass/Vol] 1.9 mg/dL 1.8-2.4 [facility] Potassium [Moles/Vol] 4.8 mmol/L 3.5-5.1 [facility] Sodium [Moles/Vol] 140 mmol/L 136-145 [facility] Urate [Mass/Vol] 7.9 mg/dL High 3.5-7.2 [facility] Urea nitrogen [Mass/Vol] 30.0 mg/dL High 7.0-18.0 [facility] Urea nitrogen/Creatinine [Mass ratio] 16.4 mg/mg [facility] Bilirubin Ql (U) Negative NEGATIVE [facility] Glucose (U) [Mass/Vol] Negative NEGATIVE [facility] Ketones Ql (U) Negative NEGATIVE [facility] pH (U) 6.0 [pH] 5.0-9.0 [facility] Specific gravity (U) [Rel density] 1.015 1.005-1.025 [facility] Urobilinogen Qn (U) 0.2 {Aimee'U}/dL 0.2-1.0 [facility] Laboratory - Specimen inform ationon 03-19-2024 Appearance (U) CLEAR CLEAR [facility] Color (U) YELLOW YELLOW [facility] Laboratory - Urinalysison Leukocyte esterase Test strip Ql (U) Negative NEGATIVE [facility] Mucus Ql (Urine sed) NONE SEEN NONE SEEN [facility] Nitrite Ql (U) Negative NEGATIVE [facility] Protein (U) [Mass/Vol] 20.0 mg/dL High <=11.9 [facility] Protein Ql (U) Negative NEG/TRACE [facility] Leukocytes [#/volume] correc denis for nucleated erythrocytes in Blood by Automated counon 03-19-2024 WBC corrected for nucl RBC Auto (Bld) [#/Vol] 5.0 10 3/uL 4.0-11.0 [facility] MCH Auto (RBC) [Entitic mass ]on 03-19-2024 MCH (RBC) [Entitic mass] 30.9 pg 25.9-34.0 [facility] MCHC Auto (RBC) [Mass/Vol]on 03-19-2024 MCHC (RBC) [Mass/Vol] 32.5 g/dL 29.9-35.2 [facility] MCV Auto (RBC) [Entitic vol] on 03-19-2024 MCV (RBC) [Entitic vol] 95.0 fL High 80.0-94.0 [facility] No Panel Informationon 03-19 25-Hydroxy Vitamin D Total 52.4 ng/mL [facility] Comment on above: <20 ng/mL Vit D defi cient20-<30 ng/mL Vit D -715 ng/mL Vit D sufficient>100 ng/mL Potential Toxicity Parathyroid Hormone (Intact) 41 pg/mL 15-65 [facility] Comment on above: Performed at: [address] [id number] Director: Vinny Alexander PhD, Phone: [phone] Phosphorus Level 3.0 mg/dL 2.6-4.7 [facility] Urine Bacteria NONE SEEN #/HPF NONE SEEN [facility] Urine Occult Blood Negative NEGATIVE [facility] Urine Other Casts NONE SEEN #/LPF NONE SEEN [facility] Urine Other Crystals None Seen #/HPF None Seen [facility] Urine Random Creatinine 118.03 mg/dL 20.0 0-300.0 0 [facility] Urine RBC 0-2 #/HPF 0-2 [facility] Urine Squamous Epithelial Cells NONE SEEN #/LPF NONE/RARE [facility] Urine WBC 0-2 #/HPF Abnormal NONE SEEN [facility] Platelet mean volume Auto (B ld) [Entitic vol]on 03-19-2024 Platelet mean volume (Bld) [Entitic vol] 10.6 fL 9.5-13.5 [facility] Platelets Auto (Bld) [#/Vol] on 03-19-2024 Platelets (Bld) [#/Vol] 221 10 3/uL 150-450 [facility] RBC Auto (Bld) [#/Vol]on RBC (Bld) [#/Vol] 4.43 10 6/uL Low 4.70-6.10 [facility] Serum or plasma anion gap de terminationon 03-19-2024 Anion gap [Moles/Vol] 14.0 mmol/L [facility] Urine protein/creatinine rat ioon 03-19-2024 Protein/Creatinine (U) [Ratio] 0.17 [facility] Albumin [Mass/volume] in Ser um or Plasmaon 12-16-2023 Albumin [Mass/Vol] 4.2 g/dL 2.9-4.4 [facility] Automated urine specific gra vity by refractometryon 12-16-2023 Specific gravity Refractometry automated (U) [Rel density] <=1.005 Abnormal 1.005-1.025 [facility] Basophils Auto (Bld) [#/Vol] on 12-16-2023 Basophils (Bld) [#/Vol] 0.0 10 3/uL 0.0-0.1 [facility] Basophils/100 WBC Auto (Bld) on 12-16-2023 Basophils/100 WBC (Bld) 0.5 % 0.2-2.0 [facility] Bilirubin Auto test strip (U ) [Mass/Vol]on 12-16-2023 Bilirubin (U) [Mass/Vol] Negative NEGATIVE [facility] Color Auto (U)on 12-16-2023 Color (U) LT. YELLOW YELLOW [facility] Eosinophils/100 WBC Auto (Bl d)on 12-16-2023 Eosinophils/100 WBC (Bld) 2.5 % 0.9-7.0 [facility] Erythrocyte distribution wid th Auto (RBC) [Ratio]on 12-16-2023 Erythrocyte distribution width (RBC) [Ratio] 12.6 % 11.0-15.0 [facility] Hematocrit Auto (Bld) [Volum e fraction]on 12-16-2023 Hematocrit (Bld) [Volume fraction] 42.8 % 42.0-54.0 [facility] Hemoglobin [Mass/volume] in Bloodon 12-16-2023 Hemoglobin (Bld) [Mass/Vol] 14.0 g/dL 14.0-18.0 [facility] IgA [Mass/volume] in Serum o r Plasmaon 12-16-2023 IgA [Mass/Vol] 143 mg/dL 61-437 [facility] IgG [Mass/volume] in Serum o r Plasmaon 12-16-2023 IgG [Mass/Vol] 1110 mg/dL 603-1613 [facility] IgM [Mass/volume] in Serum o r Plasmaon 12-16-2023 IgM [Mass/Vol] 62 mg/dL 15-143 [facility] Immunoglobulin light chains. kappa.free [Mass/volume] in Serumon 12-16-2023 Immunoglobulin light chains.kappa.free (S) [Mass/Vol] 39.7 mg/L Abnormal 3.3-19.4 [facility] Immunoglobulin light chains. kappa.free/Immunoglobulin light chains.lambda.free [Kassy 12-16-2023 Immunoglobulin light chains.kappa.free/Immuno globulin light chains.lambda.free (S) [Mass ratio] 1.68 Abnormal 0.26-1.65 [facility] Comment on above: [facility]formed [email or web address] [place], [place] [id number] Director: Vinny Alexander PhD, Phone: [phone] Immunoglobulin light chains. lambda.free [Mass/volume] in Serum or Plasmaon 12-16-2023 Immunoglobulin light chains.lambda.free [Mass/Vol] 23.7 mg/L 5.7-26.3 [facility] Ketones Auto test strip (U) [Mass/Vol]on 12-16-2023 Ketones (U) [Mass/Vol] Negative NEGATIVE Fi [facility] - Hematology and Cell countson 12-16-2023 Immature granulocytes/100 WBC (Bld) 0.7 % High 0.0-0.5 [facility] Leukocytes [#/volume] correc denis for nucleated erythrocytes in Blood by Automated counon 12-16-2023 WBC corrected for nucl RBC Auto (Bld) [#/Vol] 6.1 10 3/uL 4.0-11.0 [facility] Lymphocytes Auto (Bld) [#/Vo l]on 12-16-2023 Lymphocytes (Bld) [#/Vol] 1.4 10 3/uL 1.2-3.8 [facility] Lymphocytes/100 WBC Auto (Bl d)on 12-16-2023 Lymphocytes/100 WBC (Bld) 23.1 % 20.5-60.0 [facility] MCH Auto (RBC) [Entitic mass ]on 12-16-2023 MCH (RBC) [Entitic mass] 31.0 pg 25.9-34.0 [facility] MCHC Auto (RBC) [Mass/Vol]on 12-16-2023 MCHC (RBC) [Mass/Vol] 32.7 g/dL 29.9-35.2 [facility] MCV Auto (RBC) [Entitic vol] on 12-16-2023 MCV (RBC) [Entitic vol] 94.9 fL High 80.0-94.0 [facility] Monocytes Auto (Bld) [#/Vol] on 12-16-2023 Monocytes (Bld) [#/Vol] 0.8 10 3/uL 0.3-0.8 [facility] Monocytes/100 WBC Auto (Bld) on 12-16-2023 Monocytes/100 WBC (Bld) 13.3 % High 1.7-12.0 [facility] Neutrophils Auto (Bld) [#/Vo l]on 12-16-2023 Neutrophils (Bld) [#/Vol] 3.6 10 3/uL 1.4-6.5 [facility] Neutrophils/100 WBC Auto (Bl d)on 12-16-2023 Neutrophils/100 WBC (Bld) 59.9 % 43.0-75.0 [facility] No Panel Informationon 12-15 Eosinophils # (Auto) 0.2 10 3/uL 0.0-0.7 [facility] Immature Granulocyte # (Auto) 0.04 10 3/uL High 0.00-0.03 [facility] Protein Electrophoresis M-Valerio Not Observed g/dL Not Observed [facility] Protein Electrophoresis Note Comment . [facility] Comment on above: Protein electrophore sis scan will follow via computer,mail, or human resources professional delivery. Platelet mean volume Auto (B ld) [Entitic vol]on 12-16-2023 Platelet mean volume (Bld) [Entitic vol] 9.9 fL 9.5-13.5 [facility] Platelets Auto (Bld) [#/Vol] on 12-16-2023 Platelets (Bld) [#/Vol] 230 10 3/uL 150-450 [facility] Protein Auto test strip (U) [Mass/Vol]on 12-16-2023 Protein (U) [Mass/Vol] Negative NEG[facility] Protein [Mass/volume] in Ser um or Plasmaon 12-16-2023 Protein [Mass/Vol] 7.1 g/dL 6.0-8.5 [facility] RBC Auto (Bld) [#/Vol]on RBC (Bld) [#/Vol] 4.51 10 6/uL Low 4.70-6.10 [facility] Serum globulin measurement ( mass/volume)on 12-16-2023 Globulin (S) [Mass/Vol] 2.9 g/dL 2.2-3.9 [facility] Serum or plasma albumin/glob ulin mass ratioon 12-16-2023 Albumin/Globulin [Mass ratio] 1.5 {ratio} 0.7-1.7 [facility] Serum or plasma alpha 1 glob ulin measurement by electrophoresis (mass/volume)on 12-16-2023 Alpha 1 globulin Elph [Mass/Vol] 0.2 g/dL 0.0-0.4 [facility] Serum or plasma alpha 2 glob ulin measurement by electrophoresis (mass/volume)on 12-16-2023 Alpha 2 globulin Elph [Mass/Vol] 0.7 g/dL 0.4-1.0 [facility] Serum or plasma beta globuli n measurement by electrophoresis (mass/volume)on 12-16-2023 Beta globulin Elph [Mass/Vol] 0.8 g/dL 0.7-1.3 [facility] Serum or plasma gamma globul in measurement by electrophoresis (mass/volume)on 12-16-2023 Gamma globulin Elph [Mass/Vol] 1.1 g/dL 0.4-1.8 [facility] Serum or plasma immunoelectr ophoresis interpretationon 12-16-2023 Interpretation IEP [Interp] Comment . [facility] Comment on above: No monoclonality det ected. Specific gravity Auto test s trip (U) [Rel density]on 12-16-2023 Specific gravity (U) [Rel density] CLEAR CLEAR [facility] Urine glucose measurement by test strip (mass/volume)on 12-16-2023 Glucose Test strip (U) [Mass/Vol] Negative NEGATIVE [facility] Urine hemoglobin detection b y automated test stripon 12-16-2023 Hemoglobin Auto test strip Ql (U) Negative NEGATIVE [facility] Urine nitrite detection by a utomated test stripon 12-16-2023 Nitrite Auto test strip Ql (U) Negative NEGATIVE [facility] Urobilinogen Auto test strip (U) [Mass/Vol]on 12-16-2023 Urobilinogen Qn (U) 0.2 {Aimee'U}/dL 0.2-1.0 [facility] pH Auto test strip (U)on pH (U) 6.0 [pH] 5.0-9.0 [facility] Automated urine specific gra vity by refractometryon 12-10-2023 Specific gravity Refractometry automated (U) [Rel density] 1.015 1.005-1.025 [facility] Bilirubin Auto test strip (U ) [Mass/Vol]on 12-10-2023 Bilirubin (U) [Mass/Vol] Negative NEGATIVE [facility] Color Auto (U)on 12-10-2023 Color (U) LT. YELLOW YELLOW [facility] Estimated glomerular filtrat ion rate (GFR) non- Americanon 12-10-2023 GFR/1.73 sq M.predicted among non-blacks MDRD (S/P/Bld) [Vol rate/Area] 32 mL/min/{1.73_m2} Low >=60 [facility] Ketones Auto test strip (U) [Mass/Vol]on 12-10-2023 Ketones (U) [Mass/Vol] Negative NEGATIVE [facility] - Chemistry and C hemistry - challengeon 12-10-2023 Calcium [Mass/Vol] 9.1 mg/dL 8.5-10.1 [facility] Chloride [Moles/Vol] 102 mmol/L 98-107 [facility] CO2 [Moles/Vol] 29.9 mmol/L 21.0-32.0 [facility] Creatinine [Mass/Vol] 2.02 mg/dL High 0.70-1.30 [facility] GFR/1.73 sq M.predicted MDRD (S/P/Bld) [Vol rate/Area] 39 mL/min/{1.73_m2} Low >=60 [facility] Glucose [Mass/Vol] 92 mg/dL 74-106 [facility] Potassium [Moles/Vol] 5.1 mmol/L 3.5-5.1 [facility] Sodium [Moles/Vol] 139 mmol/L 136-145 [facility] Urea nitrogen [Mass/Vol] 29.0 mg/dL High 7.0-18.0 [facility] Urea nitrogen/Creatinine [Mass ratio] 14.4 mg/mg [facility] Protein Auto test strip (U) [Mass/Vol]on 12-10-2023 Protein (U) [Mass/Vol] Negative NEG/TRACE Fi [facility] Serum or plasma anion gap de terminationon 12-10-2023 Anion gap [Moles/Vol] 12.2 mmol/L Fi [facility] Specific gravity Auto test s trip (U) [Rel density]on 12-10-2023 Specific gravity (U) [Rel density] CLEAR CLEAR [facility] Urine glucose measurement by test strip (mass/volume)on 12-10-2023 Glucose Test strip (U) [Mass/Vol] Negative NEGATIVE [facility] Urine hemoglobin detection b y automated test stripon 12-10-2023 Hemoglobin Auto test strip Ql (U) Negative NEGATIVE [facility] Urine nitrite detection by a utomated test stripon 12-10-2023 Nitrite Auto test strip Ql (U) Negative NEGATIVE [facility] Urobilinogen Auto test strip (U) [Mass/Vol]on 12-10-2023 Urobilinogen Qn (U) 0.2 {Aimee'U}/dL 0.2-1.0 [facility] pH Auto test strip (U)on pH (U) 8.0 [pH] 5.0-9.0 [facility] No Panel Informationon 12-08 Prostate Specific Antigen Total 1.96 ng/mL <=4.00 [facility] Potassiumon 04-10-2023 Potassium [Moles/Vol] 4.3 mmol/L Normal 3.5-5.1 [facility] Comment on above: Result Comment: PERF ORMED BY: [place] [address] PATHOLOGIST SIGNAL OPERATOR ANGELICA SUN M.D. Performed By: #### K #### [facility] [address] Basic Metabolic Panelon 03-09 Anion gap [Moles/Vol] 9.5 mmol/L Normal 6.0-15.0 [facility] Comment on above: Performed By: #### C BC, BMP #### [place] [address] Calcium [Mass/Vol] 9.2 mg/dL Normal 8.6-10.3 [facility] Comment on above: Result Comment: PERF ORMED BY: [place] [address] PATHOLOGIST SIGNAL OPERATOR ANGELICA SUN M.D. Performed By: #### C BC, BMP #### [place] [address] [place] Chloride [Moles/Vol] 107 mmol/L Normal 98-107 [facility] Comment on above: Performed By: #### C BC, BMP #### [address] CO2 [Moles/Vol] 28.4 mmol/L Normal 21.0-31.0 [facility] Comment on above: Performed By: #### C BC, BMP #### [address] Creatinine [Mass/Vol] 1.47 mg/dL High 0.70-1.30 [facility] Comment on above: Performed By: #### C BC, BMP #### [place] [address] [place] GFR/1.73 sq M.predicted MDRD (S/P/Bld) [Vol rate/Area] 49.742 mL/min/{1.73_m2} [facility] Comment on above: Performed By: #### C BC, BMP #### [address] Glucose [Mass/Vol] 90 mg/dL Normal 70-100 [facility] Comment on above: Result Comment: [place] Glucose Reference Range is dependent on time and content of last meal. Glucose of more than 200 mg/dL in a nonstressed, ambulatory subject supports the diagnosis of Diabetes Mellitus. ADA recommended reference range Performed By: #### C BC, BMP #### [place] [address] [place] Potassium [Moles/Vol] 5.9 mmol/L High 3.5-5.1 [facility] Comment on above: Performed By: #### C BC, BMP #### [facility] [address] Sodium [Moles/Vol] 139 mmol/L Normal 136-145 [facility] Comment on above: Performed By: #### C BC, BMP #### [facility] [address] Urea nitrogen [Mass/Vol] 27 mg/dL High 7-25 [facility] Comment on above: Performed By: #### C BC, BMP #### [facility] [address] Basophils Auto (Bld) [#/Vol] Ordered By: Ryan Cornell on 03-27-2023 Basophils (Bld) [#/Vol] 0.0 10*3/uL 0.0-0.2 [facility] Basophils/100 WBC Auto (Bld) Ordered By: Ryan Cornell on 03-27-2023 Basophils/100 WBC (Bld) 0.6 % . [facility] Calcium [Mass/volume] in Ser um or PlasmaOrdered By: Ryan Cornell on 03-27-2023 Calcium [Mass/Vol] 9.2 mg/dL 8.6-10.3 [facility] Carbon dioxide, total [Moles /volume] in Serum or PlasmaOrdered By: Ryan Cornell on 03-27-2023 CO2 [Moles/Vol] 28.4 mmol/L 21.0-31.0 [facility] Chloride [Moles/volume] in S arturo or PlasmaOrdered By: Ryan Cornell on 03-27-2023 Chloride [Moles/Vol] 107 mmol/L 98-107 [facility] Complete Blood Count Auto Di ffon 03-27-2023 Basophils (Bld) [#/Vol] 0.0 10*3/uL Normal 0.0-0.2 [facility] Comment on above: Result Comment: PERF ORMED BY: [facility] [address] [place] [address] PATHOLOGIST SIGNAL OPERATOR ANGELICA SUN M.D. Performed By: #### C BC, BMP #### [facility] [address] [place] [address] [place] Basophils/100 WBC (Bld) 0.6 % Normal . [facility] Comment on above: Performed By: #### C BC, BMP #### [facility] [address] [place] [address] [place] Eosinophils (Bld) [#/Vol] 0.2 10*3/uL Normal 0.0-0.45 [facility] Comment on above: Performed By: #### C BC, BMP #### [facility] [address] [place] [address] [place] Eosinophils/100 WBC (Bld) 3.2 % Normal . [facility] Comment on above: Performed By: #### C BC, BMP #### [facility] [address] Erythrocyte distribution width (RBC) [Ratio] 13.3 % Normal 12.0-14.8 [facility] Comment on above: Performed By: #### C BC, BMP #### [facility] [address] [place] [address] [place] Hematocrit (Bld) [Volume fraction] 36.5 % Low 38.8-50.0 [facility] Comment on above: Performed By: #### C BC, BMP #### [facility] [address] [place] [address] [place] Hemoglobin (Bld) [Mass/Vol] 12.3 g/dL Low 13.0-17.0 [facility] Comment on above: Performed By: #### C BC, BMP #### [facility] [address] [place] [id number] [place] Lymphocytes (Bld) [#/Vol] 1.6 10*3/uL Normal 1.00-4.8 [facility] Comment on above: Performed By: #### C BC, BMP #### [facility] [address] [place] [id number] [place] Lymphocytes/100 WBC (Bld) 24.3 % Normal . [facility] Comment on above: Performed By: #### C BC, BMP #### [facility] [address] MCH (RBC) [Entitic mass] 31.8 pg Normal 27.5-35.2 [facility] Comment on above: Performed By: #### C BC, BMP #### [facility] [address] MCV (RBC) [Entitic vol] 94.2 fL Normal 83.5-101 [facility] Comment on above: Performed By: #### C BC, BMP #### [facility] [address] Mean Corpuscular HGB Conc 33.7 g/dL Normal 32.5-35.6 [facility] Comment on above: Performed By: #### C BC, BMP #### [facility] [address] Monocytes (Bld) [#/Vol] 0.7 10*3/uL Normal 0.0-0.8 [facility] Comment on above: Performed By: #### C BC, BMP #### [facility] [address] [place] [address] [place] Monocytes/100 WBC (Bld) 11.1 % Normal . [facility] Comment on above: Performed By: #### C BC, BMP #### [facility] [address] Neutrophils (Bld) [#/Vol] 3.9 10*3/uL Normal 1.8-7.7 [facility] Comment on above: Performed By: #### C BC, BMP #### [facility] [address] [place] [address] [place] Neutrophils/100 WBC (Bld) 60.8 % Normal . [facility] Comment on above: Performed By: #### C BC, BMP #### [facility] [address] [place] [address] [place] NRBC% 0.1 /100{WBC} Normal 0-0.5 [facility] Comment on above: Performed By: #### C BC, BMP #### [facility] [address] [place] [id number] [email or web address] Platelet mean volume (Bld) [Entitic vol] 7.9 fL Normal 6.6-10.1 [facility] Comment on above: Performed By: #### C BC, BMP #### [facility] [address] [place] [id number] [place] Platelets (Bld) [#/Vol] 235 10*3/uL Normal 150-450 [facility] Comment on above: Performed By: #### C BC, BMP #### [facility] [address] RBC (Bld) [#/Vol] 3.87 10*6/uL Low 3.90-5.60 [facility] Comment on above: Performed By: #### C GARRETT, BMP #### [facility] [address] [place] [id number] [facility] [[email or web address]] WBC (Bld) [#/Vol] 6.5 10*3/uL Normal 4.1-10.5 [facility] Comment on above: Performed By: #### C GARRETT, BMP #### [facility] [address] Creatinine [Mass/volume] in Serum or PlasmaOrdered By: Ryan Cornell on 03-27-2023 Creatinine [Mass/Vol] 1.47 mg/dL 0.70-1.30 [facility] ECG 12 lead ECGon 03-27-2023 ECG 12 lead ECG [facility] [place] [address] [place] [address] Electrocardiograph Report Signed Patient: Marcelino Escobar MR#: [id number] 48 : 1950 Acct:[id number] Age/Sex: 72 / M ADM Date: 03/27/23 Loc: PS Room: Type: [facility] Attending Dr: Ryan Cornell MD [...] Signed By Duglas Hernandez MD [id number] Normal [facility] Eosinophils Auto (Bld) [#/Vo l]Ordered By: Ryan Cornell on 03-27-2023 Eosinophils (Bld) [#/Vol] 0.2 10*3/uL 0.0-0.45 [facility] Eosinophils/100 WBC Auto (Bl d)Ordered By: Ryan Cornell on 03-27-2023 Eosinophils/100 WBC (Bld) 3.2 % . [facility] Erythrocyte distribution wid th Auto (RBC) [Ratio]Ordered By: Ryan Cornell on 03-27-2023 Erythrocyte distribution width (RBC) [Ratio] 13.3 % 12.0-14.8 [facility] Glucose [Mass/volume] in Ser um or PlasmaOrdered By: Ryan Cornell on 03-27-2023 Glucose [Mass/Vol] 90 mg/dL 70-100 [facility] Comment on above: ADA recommended refe rence rangeRandom Glucose Reference Range is dependent on time and content of last meal. Glucose of more than 200 mg/dL in a nonstressed, ambulatory subject supports the diagnosis of Diabetes Mellitus. Hematocrit Auto (Bld) [Volum e fraction]Ordered By: Ryan Cornell on 03-27-2023 Hematocrit (Bld) [Volume fraction] 36.5 % 38.8-50.0 [facility] Hemoglobin [Mass/volume] in BloodOrdered By: Ryan Cornell on 03-27-2023 Hemoglobin (Bld) [Mass/Vol] 12.3 g/dL 13.0-17.0 [facility] Leukocytes [#/volume] correc denis for nucleated erythrocytes in Blood by Automated counOrdered By: Ryan Cornell on 03-27-2023 WBC corrected for nucl RBC Auto (Bld) [#/Vol] 6.5 10*3/uL 4.1-10.5 [facility] Lymphocytes Auto (Bld) [#/Vo l]Ordered By: Ryan Cornell on 03-27-2023 Lymphocytes (Bld) [#/Vol] 1.6 10*3/uL 1.00-4.8 [facility] Lymphocytes/100 WBC Auto (Bl d)Ordered By: Ryan Cornell on 03-27-2023 Lymphocytes/100 WBC (Bld) 24.3 % . [facility] MCH Auto (RBC) [Entitic mass ]Ordered By: Ryan Cornell on 03-27-2023 MCH (RBC) [Entitic mass] 31.8 pg 27.5-35.2 [facility] MCHC Auto (RBC) [Mass/Vol]Or dered By: Ryan Cornell on 03-27-2023 MCHC (RBC) [Mass/Vol] 33.7 g/dL 32.5-35.6 [facility] MCV Auto (RBC) [Entitic vol] Ordered By: Ryan Cornell on 03-27-2023 MCV (RBC) [Entitic vol] 94.2 fL 83.5-101 [facility] Monocytes Auto (Bld) [#/Vol] Ordered By: Ryan Cornell on 03-27-2023 Monocytes (Bld) [#/Vol] 0.7 10*3/uL 0.0-0.8 [facility] Monocytes/100 WBC Auto (Bld) Ordered By: Ryan Cornell on 03-27-2023 Monocytes/100 WBC (Bld) 11.1 % . [facility] Neutrophils Auto (Bld) [#/Vo l]Ordered By: Ryan Cornell on 03-27-2023 Neutrophils (Bld) [#/Vol] 3.9 10*3/uL 1.8-7.7 [facility] Neutrophils/100 WBC Auto (Bl d)Ordered By: Ryan Cornell on 03-27-2023 Neutrophils/100 WBC (Bld) 60.8 % . [facility] No Panel InformationOrdered By: Ryan Cornell on 03-27-2023 Estimated GFR (CKD-EPI) 49.742 mL/Min [facility] Creatinine Clearance (Chem N/A [facility] Nucleated erythrocytes [Pres ence] in Blood by Automated countOrdered By: Ryan Cornell on 03-27-2023 Nucleated RBC Auto Ql (Bld) 0.1 /100{WBC} 0-0.5 [facility] Platelet mean volume Auto (B ld) [Entitic vol]Ordered By: Ryan Cornell on 03-27-2023 Platelet mean volume (Bld) [Entitic vol] 7.9 fL 6.6-10.1 [facility] Platelets Auto (Bld) [#/Vol] Ordered By: Ryan Cornell on 03-27-2023 Platelets (Bld) [#/Vol] 235 10*3/uL 150-450 [facility] Potassium [Moles/volume] in Serum or PlasmaOrdered By: Ryan Cornell on 03-27-2023 Potassium [Moles/Vol] 5.9 mmol/L 3.5-5.1 [facility] RBC Auto (Bld) [#/Vol]Ordere d By: Ryan Cornell on 03-27-2023 RBC (Bld) [#/Vol] 3.87 10*6/uL 3.90-5.60 [facility] Serum or plasma anion gap de terminationOrdered By: Ryan Cornell on 03-27-2023 Anion gap [Moles/Vol] 9.5 mmol/L 6.0-15.0 [facility] Sodium [Moles/volume] in Ser um or PlasmaOrdered By: Ryan Cornell on 03-27-2023 Sodium [Moles/Vol] 139 mmol/L 136-145 [facility] Urea nitrogen [Mass/volume] in Serum or PlasmaOrdered By: Ryan Cornell on 03-27-2023 Urea nitrogen [Mass/Vol] 27 mg/dL 7-25 [facility] WBC Auto (Bld) [#/Vol]Ordere d By: Ryan Cornell on 03-27-2023 WBC (Bld) [#/Vol] 6.5 10*3/uL 4.1-10.5 [facility] CBC AUTO DIFFon 02-04-2023 BASO # 0.0 103/ul Normal 0.0-0.1 [facility] Comment on above: Performed By: #### C BC #### [facility] [address] [address] [address] Haley Mays Basophils/100 WBC (Bld) 0.4 % Normal 0.2-2.0 [facility] Comment on above: Performed By: #### C BC #### [facility] [address] [address] [address] Haley Mays EO # 0.0 103/ul Normal 0.0-0.7 [facility] Comment on above: Performed By: #### C BC #### [facility] [address] [address] [address] Haley Mays Eosinophils/100 WBC (Bld) 0.5 % Critically low 0.9-7.0 [facility] Comment on above: Performed By: #### C BC #### [facility] [address] [address] [address] Haley Mays Erythrocyte distribution width (RBC) [Ratio] 12.3 % Normal 11.0-15.0 [facility] Comment on above: Performed By: #### C BC #### [facility] [address] [address] [address] Haley Mays Hematocrit (Bld) [Volume fraction] 33.2 % Critically low 42.0-54.0 [facility] Comment on above: Performed By: #### C BC #### [facility] [address] [address] [address] Haley Mays Hemoglobin (Bld) [Mass/Vol] 11.6 g/dL Critically low 14.0-18.0 [facility] Comment on above: Performed By: #### C BC #### [facility] [address] [address] [address] Haley Mays IG # 0.05 10e3/ul Critically high 0.00-0.03 [facility] Comment on above: Performed By: #### C BC #### [facility] [address] [address] [address] Haley Mays IG % 0.9 % Critically high 0.0-0.5 [facility] Comment on above: Performed By: #### C BC #### [facility] [address] [place] [address] Dr. Haley Mays LYMPH # 1.3 103/ul Normal 1.2-3.8 [facility] Comment on above: Performed By: #### C BC #### [facility] [address] [place] [address] Dr. Haley Mays Lymphocytes/100 WBC (Bld) 21.9 % Normal 20.5-60.0 [facility] Comment on above: Performed By: #### C BC #### [facility] [address] [place] [address] Dr. Haley Mays MANUAL DIFF REQ NO Normal [facility] Comment on above: Performed By: #### C BC #### [facility] [address] [place] [address] Dr. Haley Mays MCH (RBC) [Entitic mass] 32.0 pg Normal 25.9-34.0 [facility] Comment on above: Performed By: #### C BC #### [facility] [address] [place] [address] Dr. Haley Mays MCHC (RBC) [Mass/Vol] 34.9 g/dL Normal 29.9-35.2 [facility] Comment on above: Performed By: #### C BC #### [facility] [address] [place] [address] Dr. Haley Mays MCV (RBC) [Entitic vol] 91.5 fL Normal 80.0-94.0 [facility] Comment on above: Performed By: #### C BC #### [facility] [address] [place] [address] Dr. Haley Mays MONO # 0.7 103/ul Normal 0.3-0.8 [facility] Comment on above: Performed By: #### C BC #### [facility] [address] [place] [address] Dr. Haley Mays Monocytes/100 WBC (Bld) 11.6 % Normal 1.7-12.0 [facility] Comment on above: Performed By: #### C BC #### [facility] [address] [place] [address] Dr. Haley Mays NEUT # 3.7 103/ul Normal 1.4-6.5 [facility] Comment on above: Performed By: #### C BC #### [facility] [address] [place] [address] Dr. Haley Mays Neutrophils/100 WBC (Bld) 64.7 % Normal 43.0-75.0 [facility] Comment on above: Performed By: #### C BC #### [facility] [address] [place] [address] Dr. Haley Mays Platelet mean volume (Bld) [Entitic vol] 9.1 fL Critically low 9.5-13.5 [facility] Comment on above: Performed By: #### C BC #### [facility] [address] [place] [address] Dr. Haley Mays PLT 281 103/ul Normal 150-450 [facility] Comment on above: Performed By: #### C BC #### [facility] [address] [place] [address] Dr. Haley Mays RBC 3.63 106/ul Critically low 4.70-6.10 [facility] Comment on above: Performed By: #### C BC #### [facility] [address] [place] [address] Dr. Haley Mays WBC 5.7 103/ul Normal 4.0-11.0 [facility] Comment on above: Performed By: #### C BC #### [facility] [address] [place] [address] Dr. Haley Mays PROF CHEM 8 (BAS METB)on Anion gap [Moles/Vol] 15.2 mmol/L Normal Th [facility] [facility] Comment on above: Performed By: #### B MP #### [facility] [address] [address] [address] Haley Mays Calcium [Mass/Vol] 8.8 mg/dL Normal 8.5-10.1 [facility] Comment on above: Performed By: #### B MP #### [facility] [address] [address] [address] Haley Mays Chloride [Moles/Vol] 97 mmol/L Critically low 98-107 [facility] Comment on above: Performed By: #### B MP #### [facility] [address] [address] [address] Haley Mays CO2 [Moles/Vol] 23.5 mmol/L Normal 21.0-32.0 [facility] Comment on above: Performed By: #### B MP #### [facility] [address] [place] [address] Dr. Haley Mays Creatinine [Mass/Vol] 1.44 mg/dL Critically high 0.70-1.30 [facility] Comment on above: Performed By: #### B MP #### [facility] [address] [address] [address] Haley Mays EGFR-AF [place] 58 mL/min/1.73m2 Critically low >=60 [facility] Comment on above: Performed By: #### B MP #### [facility] [address] [address] [address] Haley Mays EGFR-NON AF [place] 48 mL/min/1.73m2 Critically low >=60 [facility] Comment on above: Performed By: #### B MP #### [facility] [address] [address] [address] Haley Mays Glucose [Mass/Vol] 129 mg/dL Critically high 74-106 [facility] Comment on above: Performed By: #### B MP #### [facility] [address] [address] [address] Haley Mays Potassium [Moles/Vol] 4.7 mmol/L Normal 3.5-5.1 [facility] Comment on above: Performed By: #### B MP #### [facility] [address] [place], [place] [address] Dr. Haley Mays Sodium [Moles/Vol] 131 mmol/L Critically low 136-145 [facility] Comment on above: Performed By: #### B MP #### [facility] [address] [place], [place] [address] Dr. Haley Mays Urea nitrogen [Mass/Vol] 16.0 mg/dL Normal 7.0-18.0 [facility] Comment on above: Performed By: #### B MP #### [facility] [address] [address] [address] Haley Mays Urea nitrogen/Creatinine [Mass ratio] 11.1 mg/mg Normal [facility] Comment on above: Performed By: #### B MP #### [facility] [address] [address] [address] Haley Mays XR KUB 1 VIEWon 02-04-2023 XR KUB 1 VIEW EXAMINATION: XR KUB 1 VIEW HISTORY: Pain COMPARISON: No relevant comparison available. FINDINGS: BOWEL GAS PATTERN: No abnormal dilation or deviation. CALCIFICATIONS: None significant. OTHER: Mild bilateral hip osteoarthropathy. Degenerative spondylosis. No abnormal gaseous collections. IMPRESSION: Nonobstructive bowel gas pattern Electronically authenticated by: RUSTY SILVA Date: 2023-02-04 13:57 Normal [facility] 01-23-2023 L Specimen: [id number] Received: 01/24/23 Status: TONY Rosen Num: [id number] Spec Type: Surgical Subm Dr: Vaughn Pretty MD Tissues: A Stomach - Biopsy/Polyp (DUOD BX) B Colon Biopsy (RNDM COL BX) C Colon Biopsy (DESC COL POLYP) Procedures: HE/6, Gross/Micro L4/3 Age/ Patient Sex Location Account Attending Physician Marcelino Escobar 72/M [id number] Vaughn Pretty MD SPEC NUM: [id number] RECD: 01/24/23 STATUS: TONY ROSEN NUM: [id number] REGINALDO: 01/23/23- [facility] DR: Vaughn Pretty MD ENTERED: 01/24/[address] [facility] DR: KENNETH TYPE: Surgical DEPT: S ENTERED BY: [id number] RECV BY: [id number] ORDERED: HE/6, Gross/Micro L4/3 ORDERED: HE/6, Gross/Micro [...] out celiac, rule out microscopic colitis Specimen: [id number] Received: 01/24/23 Status: TONY Rosen Num: [id number] Spec Type: Surgical Subm Dr: Vaughn Pretty MD Tissues: A Stomach - Biopsy/Polyp (DUOD BX) B Colon Biopsy (RNDM COL BX) C Colon Biopsy (DESC COL POLYP) Procedures: HE/6, Gross/Micro L4/3 Patient: Marcelino Escobar [id number] (Continued) Specimen: [id number] Received: 01/24/23 (Continued) Signed (signature on file) Pop Perez MD 01/27/23 1005 Specimen: [id number] Received: 01/24/23 Status: TONY Rosen Num: [id number] Spec Type: Surgical Subm Dr: Vaughn Pretty MD Tissues: A Stomach - Biopsy/Polyp (DUOD BX) B Colon Biopsy (RNDM COL BX) C Colon Biopsy (DESC COL POLYP) Procedures: HE/6, Gross/Micro L4/3 Patient: Marcelino Escobar [id number] (Continued) Specimen: [id number] Received: 01/24/23 (Continued) Gross Description A. Received [...] microscopic examination confirms the diagnosis. CPT Codes 79753?3 Specimen: [id number] Received: 01/24/23 Status: TONY Rosen Num: [id number] Spec Type: Surgical Subm Dr: Vaughn Pretty MD Tissues: A Stomach - Biopsy/Polyp (DUOD BX) B Colon Biopsy (RNDM COL BX) C Colon Biopsy (DESC COL POLYP) Procedures: [place]/Yovanny, Gross/Micro L4/3 Patient: Marcelino Escobar [id number] (Continued) Signed (signature on file) Pop Perez MD 01/27/23 1005 [facility] CBC AUTO DIFFon 01-07-2023 BASO # 0.0 103/ul Normal 0.0-0.1 [facility] Comment on above: Performed By: #### C BC #### [facility] [address] [address] [address] Haley Mays Basophils/100 WBC (Bld) 0.5 % Normal 0.2-2.0 [facility] Comment on above: Performed By: #### C BC #### [facility] [address] [address] [address] Haley Mays EO # 0.1 103/ul Normal 0.0-0.7 [facility] Comment on above: Performed By: #### C BC #### [facility] [address] [place] [address] Dr. Haley Mays Eosinophils/100 WBC (Bld) 0.8 % Critically low 0.9-7.0 [facility] Comment on above: Performed By: #### C BC #### [facility] [address] [place] [address] Dr. Haley Mays Erythrocyte distribution width (RBC) [Ratio] 12.6 % Normal 11.0-15.0 [facility] Comment on above: Performed By: #### C BC #### [facility] [address] [place] [address] Dr. Haley Mays Hematocrit (Bld) [Volume fraction] 37.7 % Critically low 42.0-54.0 [facility] Comment on above: Performed By: #### C BC #### [facility] [address] [place] [address] Dr. Haley Mays Hemoglobin (Bld) [Mass/Vol] 12.3 g/dL Critically low 14.0-18.0 [facility] Comment on above: Performed By: #### C BC #### [facility] [address] [place] [address] Dr. Haley Mays IG # 0.05 10e3/ul Critically high 0.00-0.03 [facility] [place] [facility] Comment on above: Performed By: #### C BC #### [facility] [address] [place] [address] Dr. Haley Mays IG % 0.8 % Critically high 0.0-0.5 [facility] Comment on above: Performed By: #### C BC #### [facility] [address] [place] [address] Dr. Haley Mays LYMPH # 1.5 103/ul Normal 1.2-3.8 [facility] Comment on above: Performed By: #### C BC #### [facility] [address] [place] [address] Dr. Haley Mays Lymphocytes/100 WBC (Bld) 25.0 % Normal 20.5-60.0 [facility] Comment on above: Performed By: #### C BC #### [facility] [address] [place] [address] Dr. Haley Mays MANUAL DIFF REQ NO Normal [facility] Comment on above: Performed By: #### C BC #### [facility] [address] [place] [address] Dr. Haley Mays MCH (RBC) [Entitic mass] 31.1 pg Normal 25.9-34.0 [facility] Comment on above: Performed By: #### C BC #### [facility] [address] [place] [address] Dr. Haley Mays MCHC (RBC) [Mass/Vol] 32.6 g/dL Normal 29.9-35.2 [facility] Comment on above: Performed By: #### C BC #### [facility] [address] [place] [address] Dr. Haley Mays MCV (RBC) [Entitic vol] 95.4 fL Critically high 80.0-94 .0 [facility] Comment on above: Performed By: #### C BC #### [facility] [address] [place] [address] Dr. Haley Mays MONO # 0.7 103/ul Normal 0.3-0.8 [facility] Comment on above: Performed By: #### C BC #### [facility] [address] [address] [address] Haley Mays Monocytes/100 WBC (Bld) 11.3 % Normal 1.7-12.0 [facility] Comment on above: Performed By: #### C BC #### [facility] [address] [address] [address] Haley Mays NEUT # 3.8 103/ul Normal 1.4-6.5 [facility] Comment on above: Performed By: #### C BC #### [facility] [address] [address] [address] Haley Mays Neutrophils/100 WBC (Bld) 61.6 % Normal 43.0-75.0 [facility] Comment on above: Performed By: #### C BC #### [facility] [address] [place] [address] Dr. Haley Mays Platelet mean volume (Bld) [Entitic vol] 9.2 fL Critically low 9.5-13.5 [facility] Comment on above: Performed By: #### C BC #### [facility] [address] [place] [address] Dr. Haley Mays PLT 300 103/ul Normal 150-450 [facility] Comment on above: Performed By: #### C BC #### [facility] [address] [address] [address] Haley Mays RBC 3.95 106/ul Critically low 4.70-6.10 [facility] Comment on above: Performed By: #### C BC #### [facility] [address] [place] [address] Dr. Haley Mays WBC 6.1 103/ul Normal 4.0-11.0 [facility] Comment on above: Performed By: #### C BC #### [facility] [address] [place] [address] ABD/PELV W CONon [...] by: COURTNEY GILL Date: 2022-12-25 08:48 Normal [facility] Complete Blood Count and Dif kodak 12-03-2022 Anisocytosis Ql (Bld) [facility] [employer] Other Basophilic stippling LM Ql (Bld) [place] [employer] Other RBC morphology finding Nom (Bld) [place] [employer] Other IMMUNOGLOBULIN IGA QUANTITIA VEon 12-03-2022 Immunoglobulin A, Qn, Serum 321 mg/dL Normal 61-437 [facility] Comment on above: Performed By: #### C BC #### [facility] [address] [place] [address] Dr. Haley Mays TISSUE TRANSGLUTAMINASE IGGo n 12-03-2022 t-Transglutaminase (tTG) IgG 11 U/mL Critically high 0-5 [facility] Comment on above: Result Comment: Nega tive 0 - 5 Weak Positive 6 - 9 Positive >9 Performed By: #### T RNSIGG #### [facility] [address] [place] [address] Dr. Haley Mays TRANSGLUTAMINASE IGAon 12-03 t-Transglutaminase (tTG) IgA >100 Critically high 0-3 [facility] Comment on above: Result Comment: Nega tive 0 - 3 Weak Positive 4 - 10 Positive >10 . Tissue Transglutaminase (tTG) has been identified as the endomysial antigen. Studies have demonstr- ated that endomysial IgA antibodies have over 99% specificity for gluten sensitive enteropathy. Performed By: #### C BC #### [facility] [address] [place] [address] Dr. Haley Mays tTG IgA/IgG Transglutaminase on 12-03-2022 tTG IgA/IgG Transglutaminase [facility] Other Basic Metabolic Panelon 11-07 Anion gap [Moles/Vol] 14.2 mmol/L Normal No rt [employer] Other Comment on above: Performed By: #### B MP #### [facility] [address] [place] [address] Dr. Haley Mays Calcium [Mass/Vol] 8.3106857 mg/dL 8.5-10 .1 mg/dL [facility] Other Chloride [Moles/Vol] 110 mmol/L Critically high 98-107 [facility] Other Comment on above: Performed By: #### B MP #### [facility] [address] [place] [address] Dr. Haley Mays CO2 [Moles/Vol] 26.54695634 mmol/L 21.0-3 2.0 mmol/L [facility] Other Creatinine [Mass/Vol] 1.61653839 mg/dL Critically high 0.70-1.30 mg/dL [facility] Other Potassium [Moles/Vol] 5.61807763 mmol/L Critically hig h 3.5-5.1 mmol/L [facility] Other Urea nitrogen [Mass/Vol] 25.0946210 mg/dL Critically h igh 7.0-18.0 mg/dL [facility] Other Urea nitrogen/Creatinine [Mass ratio] 18.8 mg/mg Normal [place] [employer] Other Comment on above: Performed By: #### B MP #### [facility] [address] [place] [address] Dr. Haley Mays Basic Metabolic Panel see note Nor [employer] Other Basic Metabolic Panel 145 mmol/L 136-14 5 mmol/L [facility] Other Basic Metabolic Panel 106 mg/dL 74-106 mg/dL [facility] Other Basic Metabolic Panel 53 mL/min/1.73m2 Critically low >=60 mL/min/1.73 m2 [facility] Other Basic Metabolic Panel >60 mL/min/1.73m2 > =60 mL/min/1.73 m2 [facility] Other CBC AUTO DIFFon 12-02-2022 BASO # 0.0 103/ul Normal 0.0-0.1 [facility] Comment on above: Performed By: #### C BC #### [facility] [address] [place] [address] Dr. Haley Mays Basophils/100 WBC (Bld) 0.3 % Normal 0.2-2.0 [facility] Comment on above: Performed By: #### C BC #### [facility] [address] [place] [address] Dr. Haley Mays EO # 0.1 103/ul Normal 0.0-0.7 [facility] Comment on above: Performed By: #### C BC #### [facility] [address] [place], [place] [id number] Dr. Haley Mays Eosinophils/100 WBC (Bld) 1.6 % Normal 0.9-7.0 [facility] Comment on above: Performed By: #### C BC #### [facility] [address] [place] [address] Dr. Haley Mays Erythrocyte distribution width (RBC) [Ratio] 12.9 % Normal 11.0-15.0 [facility] Comment on above: Performed By: #### C BC #### [facility] [address] [place] [address] Dr. Haley Mays Hematocrit (Bld) [Volume fraction] 36.7 % Critically low 42.0-54.0 [facility] Comment on above: Performed By: #### C BC #### [facility] [address] [place] [address] Dr. Haley Mays Hemoglobin (Bld) [Mass/Vol] 11.9 g/dL Critically low 14.0-18.0 [facility] Comment on above: Performed By: #### C BC #### [facility] [address] [place] [address] Dr. Haley Mays IG # 0.07 10e3/ul Critically high 0.00-0.03 [facility] [place] [facility] Comment on above: Performed By: #### C BC #### [facility] [address] [place] [address] Dr. Haley Mays IG % 1.2 % Critically high 0.0-0.[address] [facility] Comment on above: Performed By: #### C BC #### [facility] [address] [place] [address] Dr. Haley Mays LYMPH # 1.4 103/ul Normal 1.2-3.8 [facility] Comment on above: Performed By: #### C BC #### [facility] [address] [place] [address] Dr. Haley Mays Lymphocytes/100 WBC (Bld) 23.4 % Normal 20.5-60.0 [facility] Comment on above: Performed By: #### C BC #### [facility] [address] [place] [address] Dr. Haley Mays MANUAL DIFF REQ NO Normal [facility] Comment on above: Performed By: #### C BC #### [facility] [address] [place] [address] Dr. Haley Mays MCH (RBC) [Entitic mass] 30.7 pg Normal 25.9-34.0 [facility] Comment on above: Performed By: #### C BC #### [facility] [address] [place] [address] Dr. Haley Mays MCHC (RBC) [Mass/Vol] 32.4 g/dL Normal 29.9-35.2 [facility] Comment on above: Performed By: #### C BC #### [facility] [address] [place] [address] Dr. Haley Mays MCV (RBC) [Entitic vol] 94.6 fL Critically high 80.0-94 .0 [facility] Comment on above: Performed By: #### C BC #### [facility] [address] [place] [address] Dr. Haley Mays MONO # 0.7 103/ul Normal 0.3-0.8 [facility] Comment on above: Performed By: #### C BC #### [facility] [address] [place] [address] Dr. Haley Mays Monocytes/100 WBC (Bld) 11.5 % Normal 1.7-12.0 [facility] Comment on above: Performed By: #### C BC #### [facility] [address] [place] [address] Dr. Haley Mays NEUT # 3.8 103/ul Normal 1.4-6.5 [facility] Comment on above: Performed By: #### C BC #### [facility] [address] [place] [address] Dr. Haley Mays Neutrophils/100 WBC (Bld) 62.0 % Normal 43.0-75.0 [facility] Comment on above: Performed By: #### C BC #### [facility] [address] [place] [address] Dr. Haley Mays Platelet mean volume (Bld) [Entitic vol] 9.4 fL Critically low 9.5-13.5 [facility] Comment on above: Performed By: #### C BC #### [facility] [address] [place] [address] Dr. Haley Mays PLT 269 103/ul Normal 150-450 [facility] Comment on above: Performed By: #### C BC #### [facility] [address] [place] [address] Dr. Haley Mays RBC 3.88 106/ul Critically low 4.70-6.[address] [facility] Comment on above: Performed By: #### C BC #### [facility] [address] [place] [address] Dr. Haley Mays WBC 6.1 103/ul Normal 4.0-11.0 [facility] Comment on above: Performed By: #### C BC #### [facility] [address] [place] [address] Dr. Haley Mays FERRITINon 12-02-2022 Ferritin [Mass/Vol] 57.0 ng/mL Normal 26.0-388.0 [facility] Comment on above: Performed By: #### C BC #### [facility] [address] [place] [address] Dr. Haley Mays Ferritin [Mass/Vol] 57.4948784 ng/mL 26.0 -388.0 ng/mL [facility] Other IRON AND TIBCon 12-02-2022 % SATURATION 34.5 % Normal [facility] Comment on above: Performed By: #### C BC #### [facility] [address] [place] [address] Dr. Haley Mays Iron [Mass/Vol] 88.0 ug/dL Normal 65.0-175.[address] [facility] Comment on above: Performed By: #### C BC #### [facility] [address] [place] [address] Dr. Haley Mays TIBC DIRECT 255.0 ug/dL Normal 250.0-450.0 [facility] Comment on above: Performed By: #### C BC #### [facility] [address] [address] [address] Haley Mays Iron [Mass/Vol] 88.3587955 ug/dL 65.0-175 .0 ug/dL [facility] [employer] Other IRON AND TIBC 255.0 ug/dL 250.0-450.0 ug/dL [employer] [facility] [employer] Other IRON AND TIBC 34.5 % [employer] [facility] [employer] Other PROF CHEM 8 (BAS METB)on Calcium [Mass/Vol] 8.7 mg/dL Normal 8.5-10.1 [facility] Comment on above: Performed By: #### B MP #### [facility] [address] [address] [address] Haley Mays CO2 [Moles/Vol] 26.0 mmol/L Normal 21.0-32.0 [facility] Comment on above: Performed By: #### B MP #### [facility] [address] [address] [address] Haley Mays Creatinine [Mass/Vol] 1.33 mg/dL Critically high 0.70-1.30 [facility] Comment on above: Performed By: #### B MP #### [facility] [address] [address] [address] Haley Mays EGFR-AF [place] >60 Normal >=60 [facility] Comment on above: Performed By: #### B MP #### [facility] [address] [address] [address] Haley Mays EGFR-NON AF [place] 53 mL/min/1.73m2 Critically low >=60 [facility] Comment on above: Performed By: #### B MP #### [facility] [address] [place] [address] Dr. Haley Mays Glucose [Mass/Vol] 106 mg/dL Normal 74-[address] [facility] Comment on above: Performed By: #### B MP #### [facility] [address] [address] [address] Haley Mays Potassium [Moles/Vol] 5.2 mmol/L Critically high 3.5-5.1 [facility] Comment on above: Performed By: #### B MP #### [facility] [address] [place] [address] Dr. Haley Mays Sodium [Moles/Vol] 145 mmol/L Normal 136-145 [facility] Comment on above: Performed By: #### B MP #### [facility] [address] [place] [address] Dr. Haley Mays Urea nitrogen [Mass/Vol] 25.0 mg/dL Critically high 7.0-18 .0 [facility] Comment on above: Performed By: #### B MP #### [facility] [address] [place] [address] Dr. Haley Mays VIT B12 AND FOLATEon 023 FOLATE 19.60 ng/mL Normal 8.60-58.90 [facility] Comment on above: Performed By: #### C BC #### [facility] [address] [place] [address] Dr. Haley Mays Cobalamin (Vitamin B12) [Mass/Vol] pg/mL Critically high 193.0-986.0 [facility] [employer] [facility] Other Comment on above: Performed By: #### C BC #### [facility] [address] [place] [address] Dr. Haley Mays VIT B12 AND FOLATE 19.60 ng/mL 8.60-58.9 0 ng/mL [facility] Other CBC AUTO DIFFon 09-20-2022 BASO # 0.0 103/ul Normal 0.0-0.1 [facility] Comment on above: Performed By: #### C BC #### [facility] [address] [place] [address] Dr. Haley Mays Basophils/100 WBC (Bld) 0.3 % Normal 0.2-2.0 [facility] Comment on above: Performed By: #### C BC #### [facility] [address] [address] [address] Haley Mays EO # 0.1 103/ul Normal 0.0-0.7 [facility] Comment on above: Performed By: #### C BC #### [facility] [address] [place] [address] Dr. Haley Mays Eosinophils/100 WBC (Bld) 1.4 % Normal 0.9-7.0 [facility] Comment on above: Performed By: #### C BC #### [facility] [address] [place] [address] Dr. Haley Mays Erythrocyte distribution width (RBC) [Ratio] 12.9 % Normal 11.0-15.0 [facility] Comment on above: Performed By: #### C BC #### [facility] [address] [place] [address] Dr. Haley Mays Hematocrit (Bld) [Volume fraction] 39.5 % Critically low 42.0-54.0 [facility] Comment on above: Performed By: #### C BC #### [facility] [address] [place] [address] Dr. Haley Mays Hemoglobin (Bld) [Mass/Vol] 11.9 g/dL Critically low 14.0-18.0 [facility] Comment on above: Performed By: #### C BC #### [facility] [address] [place] [address] Dr. Haley Mays IG # 0.06 10e3/ul Critically high 0.00-0.03 [facility] Comment on above: Performed By: #### C BC #### [facility] [address] [place] [address] Dr. Haley Mays IG % 0.9 % Critically high 0.0-0.[address] [facility] Comment on above: Performed By: #### C BC #### [facility] [address] [place] [address] Dr. Haley Mays LYMPH # 1.7 103/ul Normal 1.2-3.8 [facility] Comment on above: Performed By: #### C BC #### [facility] [address] [place] [address] Dr. Haley Mays Lymphocytes/100 WBC (Bld) 25.6 % Normal 20.5-60.0 [facility] Comment on above: Performed By: #### C BC #### [facility] [address] [place] [address] Dr. Haley Mays MANUAL DIFF REQ NO Normal [facility] Comment on above: Performed By: #### C BC #### [facility] [address] [place] [address] Dr. Haley Mays MCH (RBC) [Entitic mass] 31.4 pg Normal 25.9-34.0 [facility] Comment on above: Performed By: #### C BC #### [facility] [address] [place] [address] Dr. Haley Mays MCHC (RBC) [Mass/Vol] 30.1 g/dL Normal 29.9-35.2 [facility] Comment on above: Performed By: #### C BC #### [facility] [address] [place] [address] Dr. Haley Mays MCV (RBC) [Entitic vol] 104.2 fL Critically high 80.0-94 .0 [facility] Comment on above: Performed By: #### C BC #### [facility] [address] [place] [address] Dr. Haley Mays MONO # 0.9 103/ul Critically high 0.3-0.[address] [facility] Comment on above: Performed By: #### C BC #### [facility] [address] [place] [address] Dr. Haley Mays Monocytes/100 WBC (Bld) 14.0 % Critically high 1.7-12. 0 [facility] Comment on above: Performed By: #### C BC #### [facility] [address] [place] [address] Dr. Haley Mays NEUT # 3.7 103/ul Normal 1.4-6.5 [facility] Comment on above: Performed By: #### C BC #### [facility] [address] [place] [address] Dr. Haley Mays Neutrophils/100 WBC (Bld) 57.8 % Normal 43.0-75.0 [facility] Comment on above: Performed By: #### C BC #### [facility] [address] [place] [address] Dr. Haley Mays Platelet mean volume (Bld) [Entitic vol] 9.6 fL Normal 9.5-13.5 [facility] Comment on above: Performed By: #### C BC #### [facility] [address] [address] [address] Haley Mays PLT 291 103/ul Normal 150-450 [facility] Comment on above: Performed By: #### C BC #### [facility] [address] [place] [address] Dr. Haley Mays RBC 3.79 106/ul Critically low 4.70-6.10 [facility] Comment on above: Performed By: #### C BC #### [facility] [address] [place] [address] Dr. Haley Mays WBC 6.4 103/ul Normal 4.0-11.0 [facility] Comment on above: Performed By: #### C BC #### [facility] [address] [place] [address] Dr. Haley Mays LIPID PROFILEon 09-20-2022 CHOL-HDL RATIO NORM SEE BELOW Normal [facility] Comment on above: Result Comment: 3.3 - 4.4 LOW RISK 4.4 - 7.1 AVERAGE RISK 7.1 - 11.0 MODERATE RISK >11.0 HIGH RISK Performed By: #### L IPWILMER BMP, ALT #### [facility] [address] [place] [address] Dr. Haley Mays Cholesterol [Mass/Vol] 123 mg/dL Normal <=200 Th [facility] Comment on above: Performed By: #### L IPWILMER BMP, ALT #### [facility] [address] [place] [address] Dr. Haley Mays Cholesterol in HDL [Mass/Vol] 26 mg/dL Critically low 40-60 [facility] Comment on above: Performed By: #### L CARLOS, BMP, ALT #### [facility] [address] [address] [address] Haley Mays Cholesterol in LDL [Mass/Vol] 57.6 mg/dL Normal [facility] Comment on above: Performed By: #### L IPID, BMP, ALT #### [facility] [address] [address] [address] Haley Mays Cholesterol.total/Choles terol in HDL [Mass ratio] 4.7 {ratio} Normal [facility] Comment on above: Performed By: #### L IPID, BMP, ALT #### [facility] [address] [address] [address] Haley Mays HDL NORMAL > or = 60 mg/dl - LOW CARDIOVASCULAR RISK <40 mg/dl - HIGH CARDIOVASCULAR RISK Normal [facility] Comment on above: Performed By: #### L IPID, BMP, ALT #### [facility] [address] [place] [address] Dr. Haley Mays LDL CALC NORMAL SEE BELOW Normal [facility] Comment on above: Result Comment: <100 mg/dl OPTIMAL 100 - 129 mg/dl NEAR OR ABOVE OPTIMAL 130 - 159 mg/dl BORDERLINE HIGH 160 - 189 mg/dl HIGH >190 mg/dl VERY HIGH Performed By: #### L IPID, BMP, ALT #### [facility] [address] [address] [address] Haley Mays Triglyceride [Mass/Vol] 197 mg/dL Critically high <=150 [facility] Comment on above: Performed By: #### L IPID, BMP, ALT #### [facility] [address] [place] [address] Dr. Haley Mays VLDL CALC 39.4 mg/dL Normal [facility] Comment on above: Performed By: #### L IPID, BMP, ALT #### [facility] [address] [address] [address] Haley Mays PROF CHEM 8 (BAS METB)on Anion gap [Moles/Vol] 13.9 mmol/L Normal [facility] Comment on above: Performed By: #### L IPID, BMP, ALT #### [facility] [address] [place] [address] Dr. Haley Mays Calcium [Mass/Vol] 8.6 mg/dL Normal 8.5-10.1 [facility] Comment on above: Performed By: #### L IPID, BMP, ALT #### [facility] [address] [place] [address] Dr. Haley Mays Chloride [Moles/Vol] 105 mmol/L Normal 98-107 [facility] Comment on above: Performed By: #### L IPID, BMP, ALT #### [facility] [address] [place] [address] Dr. Haley Mays CO2 [Moles/Vol] 25.1 mmol/L Normal 21.0-32.0 [facility] Comment on above: Performed By: #### L IPID, BMP, ALT #### [facility] [address] [place] [address] Dr. Haley Mays Creatinine [Mass/Vol] 1.47 mg/dL Critically high 0.70-1.30 [facility] Comment on above: Performed By: #### L IPID, BMP, ALT #### [facility] [address] [place] [address] Dr. Haley Mays EGFR-AF [place] 57 mL/min/1.73m2 Critically low >=60 [facility] Comment on above: Performed By: #### L IPID, BMP, ALT #### [facility] [address] [place] [address] Dr. Haley Mays EGFR-NON AF [place] 47 mL/min/1.73m2 Critically low >=60 [facility] Comment on above: Performed By: #### L IPID, BMP, ALT #### [facility] [address] [place] [address] Dr. Haley Mays Glucose [Mass/Vol] 71 mg/dL Critically low 74-106 Th [facility] Comment on above: Performed By: #### L IPID, BMP, ALT #### [facility] [address] [place] [address] Dr. Haley Mays Potassium [Moles/Vol] 5.0 mmol/L Normal 3.5-5.1 [facility] Comment on above: Performed By: #### L IPID, BMP, ALT #### [facility] [address] [address] [address] Haley Mays Sodium [Moles/Vol] 139 mmol/L Normal 136-145 [facility] Comment on above: Performed By: #### L IPID, BMP, ALT #### [facility] [address] [address] [address] Haley Mays Urea nitrogen [Mass/Vol] 27.0 mg/dL Critically high 7.0-18 .0 [facility] Comment on above: Performed By: #### L IPID, BMP, ALT #### [facility] [address] [place] [address] Dr. Haley Mays Urea nitrogen/Creatinine [Mass ratio] 18.4 mg/mg Normal [facility] Comment on above: Performed By: #### L IPID, BMP, ALT #### [facility] [address] [place] [address] Dr. Haley Mays [facility] 09-20-2022 ALT [Catalytic activity/Vol] 37 U/L Normal 16-63 [facility] Comment on above: Performed By: #### L IPID, BMP, ALT #### [facility] [address] [place] [address] Dr. Haley Mays Vital Signs Date Time Vital Sign Value Performing Clinician Facility 01-18-2025 12:06040 Body height 180.34 cm [facility] 01-18-2025 12:06-0400 Body mass index (BMI) [Ratio] 25 kg/m2 [facility] 01-18-2025 12:06040 Body weight 81.41 kg [facility] 01-18-2025 12:06-0400 Diastolic blood pressure 75 mm[Hg] [facility] 01-18-2025 12:06-0400 Heart rate 81 /min [facility] 01-18-2025 12:06-0400 Respiratory rate 12 /min [facility] 01-18-2025 12:06-0400 Systolic blood pressure 120 mm[Hg] [facility] 01-04-2025 09:51-0400 Body height 180.34 cm [facility] 01-04-2025 09:51-0400 Body mass index (BMI) [Ratio] 25.4 kg/m2 [facility] 01-04-2025 09:51-0400 Body weight 82.72 kg [facility] 01-04-2025 09:51-0400 Diastolic blood pressure 78 mm[Hg] [facility] 01-04-2025 09:51-0400 Heart rate 86 /min [facility] 01-04-2025 09:51-0400 Respiratory rate 12 /min [facility] 01-04-2025 09:51-0400 Systolic blood pressure 122 mm[Hg] [facility] 12-16-2024 12:52-0400 Body height 180.34 cm [facility] 12-16-2024 12:52-0400 Body mass index (BMI) [Ratio] 26.8 kg/m2 [facility] 12-16-2024 12:52-0400 Body temperature 97.4 [degF] [facility] 12-16-2024 12:52-0400 Body weight 87.14 kg [facility] 12-16-2024 12:52-0400 Diastolic blood pressure 91 mm[Hg] [facility] 12-16-2024 12:52-0400 Heart rate 77 /min [facility] 12-16-2024 12:52-0400 Respiratory rate 16 /min [facility] 12-16-2024 12:52-0400 SaO2% (BldA) [Mass fraction] 98 % [facility] 12-16-2024 12:52-0400 Systolic blood pressure 149 mm[Hg] [facility] 08-31-2024 08:55-0500 Body height 180.34 cm [facility] 08-31-2024 08:55-0500 Body mass index (BMI) [Ratio] 26.4 kg/m2 [facility] 08-31-2024 08:55-0500 Body weight 85.95 kg [facility] 08-31-2024 08:55-0500 Diastolic blood pressure 89 mm[Hg] [facility] 08-31-2024 08:55-0500 Heart rate 80 /min [facility] 08-31-2024 08:55-0500 Respiratory rate 12 /min [facility] 08-31-2024 08:55-0500 Systolic blood pressure 139 mm[Hg] [facility] 08-30-2024 10:22-0500 Diastolic blood pressure 76 mm[Hg] Ashkan Pacheco MD [facility] 08-30-2024 10:22-0500 Systolic blood pressure 138 mm[Hg] Ashkan Pacheco MD [facility] 07-01-2024 11:57-0400 Body height 180.34 cm [facility] 07-01-2024 11:57-0400 Body mass index (BMI) [Ratio] 25.7 kg/m2 [facility] 07-01-2024 11:57-0400 Body temperature 97.5 [degF] [facility] 07-01-2024 11:57-0400 Body weight 83.51 kg [facility] 07-01-2024 11:57-0400 Diastolic blood pressure 92 mm[Hg] [facility] 07-01-2024 11:57-0400 Heart rate 76 /min [facility] 07-01-2024 11:57-0400 Respiratory rate 16 /min [facility] 07-01-2024 11:57-0400 SaO2% (BldA) [Mass fraction] 96 % [facility] 07-01-2024 11:57-0400 Systolic blood pressure 139 mm[Hg] [facility] 05-03-2024 09:42-0400 Body height 180.34 cm [facility] 05-03-2024 09:42-0400 Body mass index (BMI) [Ratio] 25.4 kg/m2 [facility] 05-03-2024 09:42-0400 Body weight 82.55 kg [facility] 05-03-2024 09:42-0400 Diastolic blood pressure 78 mm[Hg] [facility] 05-03-2024 09:42-0400 Heart rate 82 /min [facility] 05-03-2024 09:42-0400 Systolic blood pressure 126 mm[Hg] [facility] 04-01-2024 14:13-0400 Body height 180.34 cm [facility] 04-01-2024 14:13-0400 Body mass index (BMI) [Ratio] 25.1 kg/m2 [facility] 04-01-2024 14:13-0400 Body temperature 97.8 [degF] [facility] 04-01-2024 14:13-0400 Body weight 81.76 kg [facility] 04-01-2024 14:13-0400 Diastolic blood pressure 80 mm[Hg] [facility] 04-01-2024 14:13-0400 Heart rate 74 /min [facility] 04-01-2024 14:13-0400 Respiratory rate 18 /min [facility] 04-01-2024 14:13-0400 SaO2% (BldA) [Mass fraction] 99 % [facility] 04-01-2024 14:13-0400 Systolic blood pressure 122 mm[Hg] [facility] 03-18-2024 14:22-0400 Body height 180.34 cm [facility] 03-18-2024 14:22-0400 Body mass index (BMI) [Ratio] 25.5 kg/m2 [facility] 03-18-2024 14:22-0400 Body temperature 98.5 [degF] [facility] 03-18-2024 14:22-0400 Body weight 83 kg [facility] 03-18-2024 14:22-0400 Diastolic blood pressure 75 mm[Hg] [facility] 03-18-2024 14:22-0400 Heart rate 67 /min [facility] 03-18-2024 14:22-0400 Respiratory rate 16 /min [facility] 03-18-2024 14:22-0400 SaO2% (BldA) [Mass fraction] 97 % [facility] 03-18-2024 14:22-0400 Systolic blood pressure 125 mm[Hg] [facility] 01-01-2024 09:13-0400 Body height 182.88 cm [facility] 01-01-2024 09:13-0400 Body mass index (BMI) [Ratio] 24.7 kg/m2 [facility] 01-01-2024 09:13-0400 Body weight 82.61 kg [facility] 01-01-2024 09:13-0400 Diastolic blood pressure 87 mm[Hg] [facility] 01-01-2024 09:13-0400 Heart rate 81 /min [facility] 01-01-2024 09:13-0400 Respiratory rate 16 /min [facility] 01-01-2024 09:13-0400 Systolic blood pressure 136 mm[Hg] [facility] 12-22-2023 14:12-0400 Blood Pressure Location Graham VELAZQUEZ [facility] 12-22-2023 14:12-0400 Body temperature 98.6 [degF] Graham VELAZQUEZ [facility] 12-22-2023 14:12-0400 Diastolic blood pressure 87 mm[Hg] Graham VELAZQUEZ [facility] 12-22-2023 14:12-0400 Heart rate 75 /min Graham VELAZQUEZ [facility] 12-22-2023 14:12-0400 Respiratory rate 16 /min Graham VELAZQUEZ [facility] 12-22-2023 14:12-0400 Systolic blood pressure 138 mm[Hg] Graham VELAZQUEZ [facility] 11-05-2023 11:43-0500 Body height 182.88 cm [facility] 11-05-2023 11:43-0500 Body mass index (BMI) [Ratio] 24.5 kg/m2 [facility] 11-05-2023 11:43-0500 Body weight 82.1 kg [facility] 11-05-2023 11:43-0500 Diastolic blood pressure 83 mm[Hg] [facility] 11-05-2023 11:43-0500 Heart rate 87 /min [facility] 11-05-2023 11:43-0500 Respiratory rate 12 /min [facility] 11-05-2023 11:43-0500 Systolic blood pressure 158 mm[Hg] [facility] 09-19-2023 09:30-0500 Body height 182.88 cm Anirudh Ball Other [facility] 09-19-2023 09:30-0500 Body mass index (BMI) [Ratio] 23.62 kg/m2 Anirudh Ball Other [facility] [employer] Other 09-19-2023 09:30-0500 Body weight 79.02 kg Anirudh Ball Other [facility] [employer] Other 09-19-2023 09:30-0500 Body weight 79.01 kg [facility] 09-19-2023 09:30-0500 Diastolic blood pressure 80 mm[Hg] Anirudh Ball Other [facility] 09-19-2023 09:30-0500 Respiratory rate 12 /min Anirudh Ball Other [facility] [employer] Other 09-19-2023 09:30-0500 Systolic blood pressure 135 mm[Hg] Anirudh Ball Other [facility] 08-20-2023 08:45-0500 Body height 182.88 cm Anirudh Ball Other [facility] 08-20-2023 08:45-0500 Body mass index (BMI) [Ratio] 22.62 kg/m2 Anirudh Ball Other [facility] [employer] Other 08-20-2023 08:45-0500 Body weight 75.66 kg Anirudh Ball Other [employer] Other 08-20-2023 08:45-0500 Body weight 75.65 kg [facility] 08-20-2023 08:45-0500 Diastolic blood pressure 93 mm[Hg] Anirudh Ball Other [facility] 08-20-2023 08:45-0500 Respiratory rate 12 /min Anirudh Ball Other [facility] [employer] Other 08-20-2023 08:45-0500 Systolic blood pressure 177 mm[Hg] Anirudh Ball Other [facility] 04-17-2023 11:00-0400 Body height 182.88 cm Anirudh Ball Other [facility] [employer] Other 04-17-2023 11:00-0400 Body mass index (BMI) [Ratio] 22.51 kg/m2 Anirudh Ball Other [facility] Other 04-17-2023 11:00-0400 Body weight 75.3 kg Anirudh Ball Other [facility] Other 04-17-2023 11:00-0400 Diastolic blood pressure 76 mm[Hg] Anirudh Ball Other [facility] Other 04-17-2023 11:00-0400 Systolic blood pressure 144 mm[Hg] Anirudh Ball Other [facility] Other 04-14-2023 14:00-0400 Body height 182.88 cm Imad Asaad Other [facility] Other 04-14-2023 14:00-0400 Body mass index (BMI) [Ratio] 22.38 kg/m2 Imad Asaad Other [facility] Other 04-14-2023 14:00-0400 Body weight 74.84 kg Imad Asaad Other [facility] Other 04-14-2023 14:00-0400 Diastolic blood pressure 85 mm[Hg] Imad Asaad Other [facility] Other 04-14-2023 14:00-0400 Systolic blood pressure 149 mm[Hg] Imad Asaad Other [facility] Other 02-05-2023 09:30-0400 Body height 182.88 cm Anirudh Ball Other [facility] Other 02-05-2023 09:30-0400 Body mass index (BMI) [Ratio] 20.67 kg/m2 Anirudh Ball Other [facility] Other 02-05-2023 09:30-0400 Body weight 69.13 kg Anirudh Ball Other [facility] Other 02-05-2023 09:30-0400 Diastolic blood pressure 74 mm[Hg] Anirudh Ball Other [facility] Other 02-05-2023 09:30-0400 Respiratory rate 12 /min Anirudh Ball Other [facility] Other 02-05-2023 09:30-0400 Systolic blood pressure 129 mm[Hg] Anirudh Ball Other [facility] Other 01-23-2023 16:15-0400 Diastolic blood pressure 88 mm[Hg] DO Anirudh Ball Work Phone: [facility] 01-23-2023 16:15-0400 Heart rate 68 /min DO Anirudh Ball Work Phone: [facility] 01-23-2023 16:15-0400 Respiratory rate 16 /min DO Anirudh Ball Work Phone: [facility] 01-23-2023 16:15-0400 SaO2% (BldA) [Mass fraction] 99 % DO Anirudh Ball Work Phone: [facility] 01-23-2023 16:15-0400 Systolic blood pressure 128 mm[Hg] DO Anirudh Ball Work Phone: [facility] 01-23-2023 13:44-0400 Body height 180.34 cm DO Anirudh Ball Work Phone: [facility] 01-23-2023 13:44-0400 Body weight 69.39 kg DO Anirudh Ball Work Phone: [facility] 01-06-2023 14:15-0400 Body height 182.88 cm Imad Asaad Other [facility] [employer] Other 01-06-2023 14:15-0400 Body mass index (BMI) [Ratio] 21.7 kg/m2 Imad Asaad Other [facility] Other 01-06-2023 14:15-0400 Body weight 72.58 kg Imad Asaad Other [facility] Other 01-06-2023 14:15-0400 Diastolic blood pressure 84 mm[Hg] Imad Asaad Other [facility] Other 01-06-2023 14:15-0400 Systolic blood pressure 150 mm[Hg] Imad Asaad Other [facility] Other 12-18-2022 12:30-0400 Body height 182.88 cm Anirudh [employer] Other [facility] Other 12-18-2022 12:30-0400 Body mass index (BMI) [Ratio] 21.62 kg/m2 Anirudh Ball Other [facility] Other 12-18-2022 12:30-0400 Body weight 72.3 kg Anirudh Ball Other [facility] Other 12-18-2022 12:30-0400 Diastolic blood pressure 69 mm[Hg] Anirudh Ball Other [facility] Other 12-18-2022 12:30-0400 Respiratory rate 12 /min Anirudh Ball Other [facility] Other 12-18-2022 12:30-0400 Systolic blood pressure 114 mm[Hg] Anirudh Ball Other [facility] Other 12-02-2022 11:00-0400 Body height 182.88 cm Anirudh Ball Other [facility] Other 12-02-2022 11:00-0400 Body mass index (BMI) [Ratio] 21.64 kg/m2 Anirudh Ball Other [facility] Other 12-02-2022 11:00-0400 Body weight 72.39 kg Anirudh Ball Other [facility] Other 12-02-2022 11:00-0400 Diastolic blood pressure 83 mm[Hg] Anirudh Ball Other [facility] Other 12-02-2022 11:00-0400 Respiratory rate 12 /min Anirudh Ball Other [facility] Other 12-02-2022 11:00-0400 Systolic blood pressure 149 mm[Hg] Anirudh Ball Other [facility] [employer] Other 11-25-2022 08:34-0400 Blood Pressure Location Graham VELAZQUEZ [facility] 11-25-2022 08:34-0400 Diastolic blood pressure 74 mm[Hg] Graham VELAZQUEZ [facility] 11-25-2022 08:34-0400 Heart rate 69 /min Graham VELAZQUEZ [facility] 11-25-2022 08:34-0400 Respiratory rate 16 /min Graham VELAZQUEZ [facility] 11-25-2022 08:34-0400 Systolic blood pressure 137 mm[Hg] Graham VEALZQUEZ [facility] 09-20-2022 09:30-0500 Body height 182.88 cm Anirudh Ball Other [facility] [employer] Other 09-20-2022 09:30-0500 Body mass index (BMI) [Ratio] 22.46 kg/m2 Anirudh Ball Other [facility] [employer] Other 09-20-2022 09:30-0500 Body weight 75.12 kg Anirudh Ball Other [employer] [facility] [employer] Other 09-20-2022 09:30-0500 Diastolic blood pressure 62 mm[Hg] Anirudh Ball Other [employer] [facility] [employer] Other 09-20-2022 09:30-0500 Respiratory rate 12 /min Anirudh Ball Other [employer] [facility] [employer] Other 09-20-2022 09:30-0500 Systolic blood pressure 118 mm[Hg] Anirudh Wang Other [facility] [employer] Other Encounters Encounter Date Encounter Type Care Provider Facility Start: 01-02-2026 ambulatory Graham R ANDREEA Facili ty:[facility] Start: 12-26-2025 ambulatory Graham Ruby ANDREEA Facili ty:[facility] [place] Start: 04-28-2025 End: 04-28-2025 ambulatory Anirudh Wang DO Work Phone: [facility] Work Phone: Start: 04-28-2025 End: 04-28-2025 Patient encounter procedure Anirudh Wang DO -[facility] Work Phone: Start: 04-04-2025 End: 04-04-2025 Encounter identifier Ashkan Costa Elbert Work Phone: [facility] [place] Start: 04-04-2025 ambulatory Ashkan Igor [facility]well [facility] Start: 03-10-2025 End: 03-10-2025 ambulatory Anirudh Wang DO Work Phone: [facility] Work Phone: Start: 03-10-2025 End: 03-10-2025 Patient encounter procedure Anirudh Wang DO -[facility] Work Phone: Start: 02-18-2025 ambulatory DEVEN Richardsi ty:[facility] Start: 02-07-2025 End: 02-07-2025 ambulatory [facility] Work Phone: Start: 02-07-2025 End: 02-07-2025 Patient encounter procedure [facility] Work Phone: Start: 01-18-2025 End: 01-18-2025 ambulatory [facility] Work Phone: Start: 01-18-2025 End: 01-18-2025 Patient encounter procedure [facility] Work Phone: Start: 01-13-2025 End: 01-13-2025 ambulatory [facility] Work Phone: Start: 01-13-2025 End: 01-13-2025 Patient encounter procedure [facility] Work Phone: Start: 01-04-2025 End: 01-04-2025 ambulatory [facility] Work Phone: Start: 01-04-2025 End: 01-04-2025 Patient encounter procedure [facility] Work Phone: Start: 12-27-2024 End: 12-27-2024 ambulatory Graham VELAZQUEZ Facility:[facility] [place] Start: 12-20-2024 End: 12-20-2024 Lab Drop off Graham VELAZQUEZ [facility] Start: 12-20-2024 End: 12-20-2024 ambulatory Graham VELAZQUEZ Facility:[facility] Start: 12-16-2024 End: 12-16-2024 ambulatory [facility] Work Phone: Start: 12-16-2024 End: 12-16-2024 Patient encounter procedure [facility] [place] Work Phone: Start: 12-13-2024 End: 12-13-2024 Encounter identifier Ashkan Pacheco Work Phone: [facility] [place] Start: 12-13-2024 ambulatory Ashkan Pacheco [facility] [place] Start: 12-06-2024 Non-patient / Non-visit [facility] Work Phone: Start: 11-30-2024 End: 11-30-2024 ambulatory [facility] Work Phone: Start: 11-30-2024 End: 11-30-2024 Patient encounter procedure [facility] Work Phone: Start: 2024 End: 2024 ambulatory [facility] Work Phone: Start: 2024 End: 2024 Patient encounter procedure [facility] Work Phone: Start: 10-14-2024 Non-patient / Non-visit [facility] Work Phone: Start: 09-20-2024 End: 09-20-2024 ambulatory [facility] Work Phone: Start: 09-20-2024 End: 09-20-2024 Patient encounter procedure [facility] Work Phone: Start: 09-02-2024 Non-patient / Non-visit [facility] Work Phone: Start: 08-31-2024 End: 08-31-2024 Patient encounter procedure [facility] Work Phone: Start: 08-30-2024 End: 08-30-2024 Encounter identifier Ashkan Al Randyiki Work Phone: [facility] Start: 08-30-2024 End: 08-30-2024 Ashkan Al Shweiki Work Phone: [facility] Start: 08-30-2024 ambulatory Ashkan Al Shweiki [facility] Start: 08-18-2024 End: 08-18-2024 Patient encounter procedure [facility] Work Phone: Start: 07-19-2024 End: 07-19-2024 ambulatory [facility] Work Phone: Start: 07-19-2024 End: 07-19-2024 Patient encounter procedure [facility] Work Phone: Start: 07-01-2024 End: 07-01-2024 ambulatory [facility] Work Phone: Start: 07-01-2024 End: 07-01-2024 Patient encounter procedure [facility] [place] Work Phone: Start: 06-22-2024 Non-patient / Non-visit [facility] Work Phone: Start: 06-18-2024 End: 06-18-2024 ambulatory [facility] Work Phone: Start: 06-18-2024 End: 06-18-2024 Patient encounter procedure [facility] Work Phone: Start: 06-07-2024 End: 06-07-2024 Encounter identifier Ashkan Al Shweiki Work Phone: [facility] Start: 06-07-2024 End: 06-07-2024 Ashkan Al Shweiki Work Phone: [facility] Start: 06-07-2024 ambulatory Ashkan Al Shweiki [facility] Start: 05-31-2024 End: 05-31-2024 Encounter identifier Ashkan Al Shweiki Work Phone: [facility] Start: 05-31-2024 End: 05-31-2024 Ashkan Al Shweiki Work Phone: [facility] Start: 05-31-2024 ambulatory Ashkan Al Shweiki [facility] Start: 05-19-2024 End: 05-19-2024 ambulatory [facility] Work Phone: Start: 05-19-2024 End: 05-19-2024 Patient encounter procedure [facility] Work Phone: Start: 05-03-2024 End: 05-03-2024 ambulatory [facility] Work Phone: Start: 05-03-2024 End: 05-03-2024 Patient encounter procedure [facility] Work Phone: Start: 04-30-2024 End: 04-30-2024 Office outpatient visit 25 minutes Ashkan Pacheco Work Phone: [facility] Start: 04-30-2024 ambulatory Ashkan Pacheco [facility] Start: 04-07-2024 End: 04-07-2024 ambulatory [facility] Work Phone: Start: 04-07-2024 End: 04-07-2024 Patient encounter procedure [facility] Work Phone: Start: 04-01-2024 End: 04-01-2024 ambulatory [facility] Work Phone: Start: 04-01-2024 End: 04-01-2024 Patient encounter procedure [facility] [place] Work Phone: Start: 03-19-2024 Non-patient / Non-visit [facility] Work Phone: Start: 03-18-2024 End: 03-18-2024 ambulatory [facility] Work Phone: Start: 03-18-2024 End: 03-18-2024 Patient encounter procedure [facility] Work Phone: Start: 03-04-2024 End: 03-04-2024 ambulatory [facility] Work Phone: Start: 03-04-2024 End: 03-04-2024 Patient encounter procedure [facility] Work Phone: Start: 01-29-2024 End: 01-29-2024 ambulatory [facility] Work Phone: Start: 01-29-2024 End: 01-29-2024 Patient encounter procedure [facility] Work Phone: Start: 01-20-2024 End: 01-20-2024 Encounter identifier Francoise Taylor Robsonchuck Work Phone: [facility] [place] Start: 01-20-2024 End: 01-20-2024 Francoise Layton Work Phone: [facility] Start: 01-01-2024 End: 01-01-2024 ambulatory [facility] Work Phone: Start: 01-01-2024 End: 01-01-2024 Patient encounter procedure [facility] Work Phone: Start: 12-30-2023 End: 12-30-2023 ambulatory [facility] Work Phone: Start: 12-30-2023 End: 12-30-2023 Patient encounter procedure [facility] Work Phone: Start: 12-22-2023 End: 12-22-2023 Patient encounter procedure Graham VELAZQUEZ [facility] Start: 12-16-2023 Non-patient / Non-visit [facility] Work Phone: Start: 12-10-2023 Non-patient / Non-visit [facility] Work Phone: Start: 12-09-2023 Non-patient / Non-visit [facility] Work Phone: Start: 11-28-2023 End: 11-28-2023 ambulatory [facility] Work Phone: Start: 11-28-2023 End: 11-28-2023 Patient encounter procedure [facility] Work Phone: Start: 11-05-2023 End: 11-05-2023 Patient encounter procedure [facility] Work Phone: Start: 10-24-2023 End: 10-24-2023 ambulatory [facility] Work Phone: Start: 10-24-2023 End: 10-24-2023 Patient encounter procedure [facility] Work Phone: Start: 10-21-2023 End: 10-21-2023 Encounter identifier May El Rashedy Work Phone: [facility] Start: 10-21-2023 End: 10-21-2023 May El Rashedy Work Phone: [facility] Start: 09-22-2023 End: 09-22-2023 ambulatory Anirudh Wang Other [facility] Other Start: 09-22-2023 Nursing evaluation o f patient and report [facility] Start: 09-19-2023 End: 09-19-2023 ambulatory Anirudh Wang Other [facility] Other Start: 09-19-2023 Office outpatient visit 15 minutes Anirudh [facility] Start: 09-19-2023 End: 09-19-2023 Patient encounter procedure [facility] Work Phone: Start: 08-26-2023 End: 08-26-2023 Encounter identifier May El Rashedy Work Phone: [facility] Start: 08-26-2023 End: 08-26-2023 May El Rashedy Work Phone: [facility] Start: 08-21-2023 End: 08-21-2023 Office outpatient visit 15 minutes Avani España Pollybenedicto Work Phone: [facility] Start: 08-20-2023 End: 08-20-2023 ambulatory Anirudh Wang Other [facility] Other Start: 08-20-2023 Office outpatient visit 15 minutes Anirudh Wang [facility] Start: 08-20-2023 End: 08-20-2023 Patient encounter procedure [facility] Work Phone: Start: 08-06-2023 End: 08-06-2023 ambulatory Anirudh Wang Other [facility] Other Start: 08-06-2023 Telephone encounter Anirudh WING [facility] Start: 07-29-2023 End: 07-29-2023 Office outpatient visit 25 minutes May Brandon Layton Work Phone: [facility] [place] Start: 07-28-2023 End: 07-28-2023 ambulatory Anirudh Wang Other [facility] Other Start: 07-28-2023 Telephone encounter Anirudh Thrasher [facility] Start: 07-21-2023 End: 07-21-2023 ambulatory Anirudh Wang Other [facility] Other Start: 07-21-2023 Nursing evaluation o f patient and report Anirudh Wang [facility] Start: 07-14-2023 End: 07-14-2023 ambulatory Anirudh Wang Other [facility] Other Start: 07-14-2023 Telephone encounter Anirudh Thrasher [facility] Start: 05-19-2023 End: 05-19-2023 ambulatory Tricia Weiss Other [facility] Other Start: 05-19-2023 Nursing evaluation o f patient and report Tricia Weiss [facility] Start: 05-19-2023 Telephone encounter Anirudh WING G [facility] Start: 05-16-2023 End: 05-16-2023 ambulatory Imad Asaad Other [facility] Other Start: 05-16-2023 Telephone encounter Imad Asaad [facility] Start: 05-09-2023 End: 05-09-2023 ambulatory Imad Asaad Other [facility] Other Start: 05-09-2023 Telephone encounter Imad Asaad [employer] Start: 05-02-2023 End: 05-02-2023 ambulatory Anirudh Wang Other [facility] Other Start: 05-02-2023 Telephone encounter Anirudh WING [facility] Start: 04-17-2023 End: 04-17-2023 ambulatory Anirudh Wang Other [facility] Other Start: 04-17-2023 Office outpatient visit 25 minutes Anirudh Wang [facility] Start: 04-14-2023 End: 04-14-2023 ambulatory Imad Asaad Other [facility] Other Start: 04-14-2023 Office outpatient visit 25 minutes Imad Asaad [facility] Start: 04-10-2023 Telephone encounter Anirudh WING [facility] Start: 04-10-2023 End: 04-10-2023 ambulatory Anirudh Wang [facility] Other Start: 04-04-2023 End: 04-04-2023 ambulatory Anirudh Wang Other [facility] Other Start: 04-04-2023 Telephone encounter Anirudh WING [facility] Start: 04-01-2023 End: 04-01-2023 ambulatory Anirudh Wang Other [facility] Other Start: 04-01-2023 Telephone encounter Anirudh WING [facility] Start: 03-27-2023 End: 03-27-2023 ambulatory Anirudh Wang Facility:[facility] Start: 03-27-2023 End: 03-27-2023 ambulatory DO Anirudh Wang Work Phone: [facility] Work Phone: Start: 03-27-2023 End: 03-27-2023 Patient encounter procedure DO Anirudh Ball Work Phone: [facility] Work Phone: Start: 02-18-2023 End: 02-18-2023 ambulatory Anirudh Wang Other [facility] Other Start: 02-18-2023 Telephone encounter Anirudh Wang FP G [facility] Start: 02-10-2023 End: 02-10-2023 ambulatory Anirudh Wang Other [facility] Other Start: 02-10-2023 Nursing evaluation o f patient and report Anirudh Wang [facility] Start: 02-05-2023 End: 02-05-2023 ambulatory Anirudh Wang Other [facility] Other Start: 02-05-2023 Office outpatient visit 15 minutes Anirudh Wang [facility] Start: 02-04-2023 End: 02-04-2023 ambulatory WAI DAUGHERTY Facility:[facility] Start: 01-31-2023 End: 01-31-2023 ambulatory Imad Asaad Other [facility] Other Start: 01-31-2023 Telephone encounter Imad Asaad [facility] Start: 01-23-2023 End: 01-23-2023 ambulatory Imad Asaad Facility:[facility] Start: 01-23-2023 End: 01-23-2023 Admission to same day surgery center DO Anirudh Wang Work Phone: [facility] Work Phone: Start: 01-07-2023 End: 01-08-2023 ambulatory IMAD ASAAD Facility:[facility] Start: 01-06-2023 End: 01-06-2023 ambulatory Imad Asaad Other [facility] Other Start: 01-06-2023 Office outpatient ne w 45 minutes Imad Asaad [facility] Start: 01-02-2023 End: 01-02-2023 ambulatory Anirudh Wang Other [facility] Other Start: 01-02-2023 Nursing evaluation o f patient and report Anirudh DONALDSON [facility] Start: 12-25-2022 Telephone encounter Anirudh Wang MACIEJ [facility] Start: 12-25-2022 End: 12-26-[address] ANIRUDH WANG [facility] Other Start: 12-18-2022 End: 12-18-2022 ambulatory Anirudh Wang Other [facility] Other Start: 12-18-2022 Office outpatient visit 25 minutes Anirudh Wang [facility] Start: 12-13-2022 End: 12-13-2022 ambulatory Anirudh Wang Other [facility] Other Start: 12-13-2022 Telephone encounter Anirudh Wang MACIEJ [facility] Start: 12-04-2022 End: 12-04-2022 ambulatory Anirudh Wang Other [facility] Other Start: 12-04-2022 Telephone encounter Anirudh Wang MACIEJ [facility] Start: 12-02-2022 End: 12-03-[address] ANIRUDH WANG [facility] Other Start: 12-02-2022 Nursing evaluation o f patient and report Anirudh DONALDSON [facility] Start: 12-02-2022 Office outpatient visit 15 minutes Anirudh Wang [facility] Start: 11-25-2022 End: 11-25-2022 Patient encounter procedure Graham VELAZQUEZ [facility] Start: 11-18-2022 End: 11-19-[address] GRAHAM VELAZQUEZ . Facility: Start: 10-31-2022 End: 10-31-2022 ambulatory Anirudh Adeline Other [facility] Other Start: 10-31-2022 Nursing evaluation o f patient and report Anirudh Wang [facility] Start: 10-14-2022 End: 10-14-2022 Encounter identifier Khari Bates Work Phone: [facility] Start: 10-14-2022 End: 10-14-2022 Khari Bates Work Phone: [facility] Start: 10-08-2022 End: 10-08-2022 ambulatory Anirudh Wang Other [facility] Other Start: 10-08-2022 Telephone encounter Anirudh WING [facility] Start: 09-30-2022 End: 09-30-2022 ambulatory Anirudh Wang Other [facility] Other Start: 09-30-2022 Nursing evaluation o f patient and report Anirudh Wang [facility] Start: 09-27-2022 Encounter for genera l adult medical examination without abnormal findings DR ANIRUDH WANG [facility] Start: 09-27-2022 End: 09-27-2022 ambulatory Anirudh Wang Other [facility] Other Start: 09-27-2022 Telephone encounter Anirudh WING [facility] Start: 09-20-2022 Patient encounter procedure Anirudh Wang [facility] Start: 09-20-2022 End: 09-21-[address] ANIRUDH WANG [facility] Other Start: 09-20-2022 End: 09-21-2022 Encounter for general adult medical examination without abnormal findings DR ANIRUDH WANG Facility:[facility] Start: 06-24-2022 End: 06-24-2022 Encounter identifier Khari Bates Work Phone: [facility] Start: 06-24-2022 End: 06-24-2022 Khari Bates Work Phone: [facility] Start: 03-04-2022 End: 03-04-2022 Encounter identifier Khari Bates Work Phone: [facility] Start: 03-04-2022 End: 03-04-2022 Khari Bates Work Phone: [facility] Start: 01-07-2022 End: 01-07-2022 Encounter identifier Khari Bates Work Phone: [facility] Start: 01-07-2022 End: 01-07-2022 Khari Olverabs Work Phone: [facility] [place] Start: 12-10-2021 End: 12-10-2021 Encounter identifier Khari Bates Work Phone: [facility] Start: 12-10-2021 End: 12-10-2021 Khari Bates Work Phone: [facility] Start: 11-21-2021 End: 11-21-2021 Office outpatient visit 25 minutes Avani Mcguire Work Phone: [facility] [place] Start: 10-31-2021 End: 10-31-2021 Office outpatient visit 15 minutes Avani España Pollybenedicto Work Phone: [facility] [place] Start: 10-15-2021 End: 10-15-2021 Office outpatient visit 15 minutes Khari Bates Work Phone: [facility] Start: 09-17-2021 Adult health examination Anirudh Wang Other [employer] Other Start: 06-06-2021 End: 06-06-2021 Office outpatient visit 15 minutes Khari Bates Work Phone: [facility] [place] Start: 03-07-2021 End: 03-07-2021 Office outpatient visit 25 minutes Khari Truong Jana Work Phone: [facility] Start: 12-06-2020 End: 12-06-2020 Encounter identifier Khari Truong Jana Work Phone: [facility] [place] Start: 12-06-2020 End: 12-06-2020 Khari Bates Work Phone: [facility] [place] Start: 09-06-2020 End: 09-06-2020 Office outpatient visit 15 minutes Khari Bates Work Phone: [facility] Start: 07-12-2020 End: 07-12-2020 Encounter identifier Khari [employer] Work Phone: [facility] [place] Start: 07-12-2020 End: 07-12-2020 Khari [employer] Work Phone: [facility] Start: 01-05-2020 End: 01-05-2020 Encounter identifier Khari [employer] Work Phone: [facility] Start: 01-05-2020 End: 01-05-2020 Khari [employer] Work Phone: [facility] Start: 10-06-2019 End: 10-06-2019 Office outpatient visit 15 minutes Khari Bates Work Phone: [facility] [place] Start: 07-07-2019 End: 07-07-2019 Encounter identifier Khari [employer] Work Phone: [facility] [place] Start: 07-07-2019 End: 07-07-2019 Khari [employer] Work Phone: [facility] [place] Start: 04-14-2019 End: 04-14-2019 Encounter identifier Khari [employer] Work Phone: [facility] [place] Start: 04-14-2019 End: 04-14-2019 Khari [employer] Work Phone: [facility] Start: 02-17-2019 End: 02-17-2019 Encounter identifier Khari [employer] Work Phone: [facility] [place] Start: 02-17-2019 End: 02-17-2019 Khari [employer] Work Phone: [facility] Start: 01-06-2019 End: 01-06-2019 Encounter identifier Khari Truong Jana Work Phone: [facility] Start: 01-06-2019 End: 01-06-2019 Khari [employer] Work Phone: [facility] [place] Start: 10-07-2018 End: 10-07-2018 Encounter identifier Khari Bates Work Phone: [facility] Start: 10-07-2018 End: 10-07-2018 Khari Bates Work Phone: [facility] [place] Start: 08-05-2018 End: 08-05-2018 Encounter identifier Khari Bates Work Phone: [facility] [place] Start: 08-05-2018 End: 08-05-2018 Khari Bates Work Phone: [facility] Start: 04-15-2018 End: 04-15-2018 Encounter identifier Khari Bates Work Phone: [facility] Start: 04-15-2018 End: 04-15-2018 Khari Bates Work Phone: [facility] Start: 02-18-2018 End: 02-18-2018 Encounter identifier Khari Bates Work Phone: [facility] Start: 02-18-2018 End: 02-18-2018 Khari Bates Work Phone: [facility] Start: 01-14-2018 End: 01-14-2018 Office outpatient visit 15 minutes Khari Bates Work Phone: [facility] Start: 12-10-2017 End: 12-10-2017 Encounter identifier Khari Bates Work Phone: [facility] Start: 12-10-2017 End: 12-10-2017 Khari Bates Work Phone: [facility] Start: 11-19-2017 End: 11-19-2017 Encounter identifier Khari Bates Work Phone: [facility] Start: 11-19-2017 End: 11-19-2017 Khari Bates Work Phone: [facility] Start: 10-14-2017 End: 10-14-2017 Encounter identifier Rowan Sherman Work Phone: [facility] [place] Start: 10-14-2017 End: 10-14-2017 Rowanmasha Sherman Work Phone: [facility] [place] Start: 09-10-2017 End: 09-10-2017 Encounter identifier Khari Bates Work Phone: [facility] Start: 09-10-2017 End: 09-10-2017 Khari Bates Work Phone: [facility] Start: 07-30-2017 End: 07-30-2017 Encounter identifier Khari Bates Work Phone: [facility] Start: 07-30-2017 End: 07-30-2017 Khari Bates Work Phone: [facility] Start: 06-23-2017 End: 06-23-2017 Encounter identifier Rowan Farrel Work Phone: [facility] Start: 06-23-2017 End: 06-23-2017 Rowanmasha Sherman Work Phone: [facility] Start: 05-13-2017 End: 05-13-2017 Office outpatient visit 15 minutes Khari Bates Work Phone: [facility] Start: 04-02-2017 End: 04-02-2017 Encounter identifier Khari Bates Work Phone: [facility] Start: 04-02-2017 End: 04-02-2017 Khari Bates Work Phone: [facility] Start: 02-12-2017 End: 02-12-2017 Encounter identifier Khari Bates Work Phone: [facility] Start: 02-12-2017 End: 02-12-2017 Khari Bates Work Phone: [facility] Start: 01-08-2017 End: 01-08-2017 Encounter identifier Khari Bates Work Phone: [facility] Start: 01-08-2017 End: 01-08-2017 Khari Bates Work Phone: [facility] Start: 12-11-2016 End: 12-11-2016 Office outpatient new 45 minutes Khari Bates Work Phone: [facility] Procedures Date Procedure Procedure Detail Performing Clinician Start: 04-04-2025 End: 04-04-2025 Computerized ophthalmic imaging retina Ashakn Pacheco Start: 04-04-2025 Eylea 1mg Pre-filled Syringe Ashkan Al Jovan trujillo Start: 04-04-2025 End: 04-04-2025 Eylea 1mg Pre-filled Syringe Ashkan Polanco MD Start: 04-04-2025 End: 04-04-2025 Intravitreal njx pharmacologic agt spx Ashkan Pacheco Start: 12-13-2024 End: 12-13-2024 Computerized ophthalmic imaging retina Ashkan Pacheco Start: 12-13-2024 Eylea 1mg Pre-filled Syringe Ashkan Polanco Start: 12-13-2024 End: 12-13-2024 Eylea 1mg Pre-filled Syringe Ashkan Polanco MD Start: 12-13-2024 End: 12-13-2024 Intravitreal njx pharmacologic agt spx Ashkan Pacheco Start: 08-30-2024 End: 08-30-2024 Eylea 1mg Pre-filled Syringe Ashkan Polanco MD Start: 08-30-2024 Eylea 1mg Pre-filled Syringe Ashkan Polanco Start: 08-30-2024 End: 08-30-2024 Intravitreal njx pharmacologic agt spx Ashkan Pacheco MD Start: 06-07-2024 End: 06-07-2024 Dstrj loclzd lesion retina 1/> sess pc Ashkan Pacheco MD Start: 05-31-2024 End: 05-31-2024 Eylea 1mg Pre-filled Syringe Ashkan Polanco MD Start: 05-31-2024 Eylea 1mg Pre-filled Syringe Ashkan Polanco Start: 05-31-2024 End: 05-31-2024 Fluorescein angrph w/multiframe i&r uni/bi Ashkan Pachceo MD Start: 05-31-2024 Fundus Photos No Charge Ashkan Carrera i Start: 05-31-2024 End: 05-31-2024 Fundus Photos No Charge Bilateral Ashkan Pacheco MD Start: 05-31-2024 End: 05-31-2024 Intravitreal njx pharmacologic agt spx Ashkan Pacheco MD Start: 04-30-2024 End: 04-30-2024 Computerized ophthalmic imaging retina Ashkan Pacheco MD Start: 01-20-2024 End: 01-20-2024 Computerized ophthalmic imaging [...] on above: Performed By: #### CBC #### [facility] [address] [place] [address] Dr. Haley Mays Start: 10-14-2022 End: 10-14-2022 [...] End: 03-07-2021 Eylea 1mg Pre-filled Syringe Ashkan Al S hweiki MD Start: 03-07-2021 End: 03-07-2021 Intravitreal njx [...] Pacheco MD Start: 01-01-2017 Hyperlipidemia screening Anirudh Ball Other Start: 12-11-2016 End: 12-11-2016 Bevacizumab injection [...] 09-08-1974 Repair of left inguinal hernia Graham Ibrahim FRANKIEEVITA Depression screening Yucarlos enrique Wang Other Depression screening Jona keke Wang Other History of operative procedure on knee Graham VELAZQUEZ Vasectomy Graham VELAZQUEZ Plan of Treatment Date Care Activity Detail Author Start: 07-25-2025 Marcelino Escobar 16 Week IO EYL (2-3) OS/ OCT [facility] Work Phone: Start: 04-04-2025 Counseling about tobacco use Tobacco cessation counseling [facility] Start: 12-13-2024 Counseling about tobacco use Tobacco cessation counseling [facility] Start: 12-06-2024 Marcelino Escobar 14 Weeks EYL OS(2-3) OCT [facility] Work Phone: Start: 01-01-2024 Patient referral [facility] Work Phone: Start: 01-23-2023 [facility] Start: 10-15-2021 Smoking cessation education Tobacco cessation counseling [facility] Start: 01-05-2020 Patient Education Health Infor mation for You: [facility] Work Phone: Start: 10-06-2019 Patient Education Health Infor mation for You: [facility] Work Phone: Start: 07-07-2019 Patient Education Health Infor mation for You: [facility] Work Phone: Patient Education Colon polyps [facility] Work Phone: Patient referral [facility] Work Phone: Renal function 1999 panel - Serum or Plasma [facility] Renal function 1999 panel - Serum or Plasma [facility] Renal function 1999 panel - Serum or Plasma [facility] Renal function 1999 panel - Serum or Plasma [facility] Immunizations Immunization Date Immunization Notes Care Provider Fa cility NEGATED: Highlighted row has not occurred!11-20-2020 influenza virus vaccine, unspecified formulation Graham VELAZQUEZ [facility] NEGATED: Highlighted row has not occurred!11-22-2019 influenza virus vaccine, live, attenuated, for intranasal use Graham VELAZQUEZ [facility] Payers Date Payer Category Payer Self-pay 2021 Private Health Insurance [id number] 1961 Medicare [id number] 1950 Unknown [id number] 1948 Unknown [id number] 1948 Unknown [id number] 1950 Unknown [id number] 2.16840.1.624323.3.579.2.59 3 1950 Unknown [id number] 2.16.840.1.233717.3.579.2.59 3 1950 Unknown [id number] 2.16.840.1.281818.3.579.2.59 3 1950 Unknown [id number] 2.16.840.1.386861.3.579.2.72 7 1948 Unknown [id number] 2.16.840.1.574140.3.579.2.72 7 1948 Unknown [id number] 2.16.840.1.209356.3.579.2.72 7 1948 Unknown [id number] 2.16.840.1.485073.3.579.2.72 7 1948 Unknown [id number] 2.16.840.1.379993.3.579.2.72 7 1948 Unknown [id number] 2.16.840.1.268705.3.579.2.72 7 1948 Unknown [id number] 2.16.840.1.472649.3.579.2.13 47 1948 Unknown [id number] 2.16.840.1.032798.3.579.2.13 47 1948 Unknown [id number] 2.16.840.1.867637.3.579.2.13 47 1948 Unknown [id number] 2.16.840.1.220872.3.579.2.13 47 1948 Unknown [id number] 2.16.840.1.728959.3.579.2.13 47 1948 Unknown [id number] 2.16.840.1.117745.3.579.2.13 47 1950 Unknown [id number] 2.16.840.1.518093.3.579.2.13 47 Private Health Insurance [employer] Mcr PFFS N on Pt [id number] Unknown [id number] 2.16.840.1.142587.3.579.2.53 1 Unknown [id number] 2.16.840.1.192254.3.579.2.53 1 Unknown [id number] 2.16.840.1.744748.3.579.2.53 1 Social History Date Type Detail Facility Sex Assigned At [facility] Start: 11-25-2022 End: 01-04-2025 Tobacco smoking status Never smoked tobacco (finding) [facility] Tobacco smoking status Never [facility] Start: 1950 Sex Assigned At Male [facility] Start: 07-19-2024 End: 02-07-2025 Sex Male (finding) [facility] Start: 08-30-2024 Health-related behavior (observable entity) Caffeine Use Details [facility] Sexual Orientation [facility] Start: 04-04-2025 Tobacco use and exposure Non-Smoking Tobacco Use Details [facility] NEGATED: Highlighted rowStart: 08-30-2024 End: 04-04-2025 Tobacco smoking status NHIS Unknown if ever smoked [facility] NEGATED: Highlighted row Alcohol intake Alcohol Use Details [facility] NEGATED: Highlighted rowStart: 08-30-2024 History of tobacco use Current non-smoker [facility] Medical Equipment Procedure Code Equipment Code Equipment Origin al Text Equipment Identifier Dates Repair, hernia, inguinal, with mesh Abdominal hernia surgical mesh, synthetic polymer, non-bioabsorbable [id number] [facility] Start: 04-10-2023 Goals Date Patient Goal Desired Activity /State Functional Status Date Assessment Result Facility 12-22-2023 Functional Status N/A [facility] 11-25-2022 Functional Status N/A [facility] Clinical Notes 09-20-2022 to 04-04-2025 Note Date & Type Note Facility 04-04-2025 Evaluation note Type assessment Trib rtnl vein occlu maribel, left eye, with macular edema impression Trib rtnl vein occlu maribel, left eye, with macular edema: H34.8320. Let assessment Diplopia impression Diplopia: H53.2 [facility] Work Phone: [phone] History of Present illness Narrative* Encounter Date Complaint History Of Prese nt Illness BRVO The 74 year old male presents for treatment of BRVO in the left eye. Patient reports vision is stable with glasses. Denies current flashes of light or floaters but does report diplopia. Intermittent diplopia for the last four months. Reports when he is driving and looks peripherally, it looks like there are two cars present instead of one. Denies ocular pain. Dry eyes. Patient is using Optase gel QHS OU and Gentreal BID-TID OU and reports improvement with use. BRVO The 74 year old male presents for treatment of BRVO in the left eye. (Two of three) Patient reports vision is stable with glasses. Patient had a blepharoplasty back in October and states great outcome. Denies current flashes of light, floaters OU intermittently that are stable with change. Denies ocular pain. Patient is using Refresh QHS OU. BRVO The 73 year old male presents [...] a retinal occlusion in the left eye. [facility] Work Phone: 1([phone]) 513-460007-28-2025 Instructions* Date Instruction Additional Infor naveen Impression/Plan Related to Trib rtnl vein occlusion, left eye, with macular edema Impression/Plan Related to Diplo johan Impression/Plan Related to Trib rtnl vein occlusion, left eye, with macular edema Impression/Plan Related to Catar act, Nuclear Sclerosis OS Impression/Plan Related to Trib rtnl vein occlusion, left eye, with macular edema Keep next appt Related to Trib rtnl vein occlusion, left eye, with macular edema Impression/Plan Related to Trib rtnl vein occlusion, left eye, with macular edema Impression/Plan Related to Catar act, Nuclear Sclerosis OS Impression/Plan Related to Pseud ophakia Impression/Plan Related to Trib rtnl vein occlusion, left eye, with macular edema Impression/Plan Related to Hyper tension Impression/Plan Related to Hyper tension Impression/Plan Related to Pseud ophakia Impression/Plan Related to Catar act, Nuclear Sclerosis OS Impression/Plan Related to Trib rtnl vein occlusion, left eye, with macular edema Impression/Plan Related to Ptosi s, bilateral Impression/Plan [...] Related to Prese nce of intraocular lens Return in Related to Trib rtnl vein occlusion, left eye, with macular edema Impression/Plan Related to Trib rtnl vein occlusion, left eye, with macular edema Impression/Plan Related to Prese nce of intraocular lens Impression/Plan Related to Hyper tensive retinopathy of both eyes Return in Related to Trib rtnl vein [...] tensive retinopathy of both eyes Return in Related to Trib rtnl vein [...] elated nuclear cataract, left eye Return in 1 Related to Trib rtnl [...] al hemorrhage, left eye Impression/Plan Related to Retin al edema Impression/Plan Related to Trib rtnl vein occlusion, left eye, with macular edema Return in 3 months jesenia Bates MD for follow up and OCT. [...] al hemorrhage, left eye Impression/Plan Related to Retin al [...] Impression/Plan Related to Vitre ous degeneration, bilateral Return in 6 months w esther Bates [...] with macular edema Return in 6-[address] Bates for follow up exam and OCT. The need for additional EYL OS will be determined at that time. Related to Trib rtnl vein occlusion, left eye, with macular edema Impression/Plan Related to Age-r elated nuclear cataract, bilateral Impression/Plan Related to Vitre ous degeneration, bilateral Impression/Plan Related to Pucke ring of macula, right eye Impression/Plan Related to Essen tial (primary) hypertension [...] Essen tial (primary) hypertension Impression/Plan Related to Pucke ring of macula, [...] macular edema Return in [address] [...] Appropriate follow up with primary eye childcare administrator was recommended. Related to Trib rtnl vein occlusion, left eye, with macular edema Follow up - Return i n 3 [...] Appropriate follow up with primary eye childcare administrator was recommended. Related to Trib rtnl vein [...] degeneration, bilateral Return in [address] Bates for follow [...] up exam with OCT and possible Avastin. Impression/Plan - Re mialar follow up appointments with the patient's comprehensive [...] left eye, with macular edema Return in [address] [...] Appropriate follow up with primary eye childcare administrator was recommended. Related to Trib rtnl vein [...] follow up exam, OCT and possible Avastin. Impression/Plan - Re gular follow up appointments with the patient's comprehensive eye doctor were recommended to monitor the patients cataract for progression. Referral for surgical intervention is not indicated at this time. Related to Age-related nuclear cataract, bilateral Oct- Impression/Plan - Po sterior vitreous detachment was noted on examination today and explained to the patient. There is no evidence of a retinal tear, break, or detachment. Patient instructed to call the office immediately if any symptoms noted. Related to Vitreous degeneration, bilateral Oct- Impression/Plan - RI GHT EYE: Macular Pucker [...] 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, right eye Oct- Impression/Plan - In traretinal hemorrhages secondary to [...] Related to Retinal hemorrhage, left eye - Return in 4-6 week s for [...] Appropriate follow up with primary eye childcare administrator was recommended. Related to Trib rtnl vein occlusion, left eye, with macular edema Follow up - Return i n 6-8 [...] Appropriate follow up with primary eye childcare administrator was recommended. Related to Trib rtnl vein [...] macula, right eye [facility] Work Phone: 1([phone]) 773-126604-21-2025 NotePatient Education Urology Benign Prostatic Hyperplasia Benign prostatic [...] or symptoms? Symptoms of this condition include: ??? Getting up often during the night to urinate. ??? Needing to urinate frequently during the day. ??? Difficulty starting urine flow. ??? Decrease in size and strength of your urine stream. ??? Leaking (dribbling) after urinating. ??? Inability to pass urine. This needs immediate treatment. ??? Inability to completely empty your bladder. ??? Pain when you pass urine. This is more common if there is also an infection. ??? Urinary tract infection (UTI). How is this diagnosed? This condition is diagnosed based on your medical history, a physical exam, and your symptoms. Tests will also be done, such as: ??? A post-void bladder scan. This measures any amount of urine that may remain in your bladder after you finish urinating. ??? A digital rectal exam. In a rectal exam, your health care provider checks your prostate by putting a lubricated, gloved finger into your rectum to feel the back of your prostate gland. This exam detects the size of your gland and any abnormal lumps or growths. ??? An exam of your urine (urinalysis). ??? A prostate specific antigen (PSA) screening. This is a blood test used to screen for prostate cancer. ??? An ultrasound. This test uses sound waves [...] severity of your condition. Treatment may include: ??? Observation and yearly exams. This may be the only treatment needed if your condition and symptoms are mild. ??? Medicines to relieve your symptoms, including: ? Medicines to shrink the prostate. ? Medicines to relax the muscle of the prostate. ??? Surgery in severe cases. Surgery may include: ? Prostatectomy. In this procedure, the prostate tissue is removed completely through an open incision or with a laparoscope or robotics. ? Transurethral resection of the prostate (TURP). In this procedure, a tool is inserted through theopening at the tip of the penis (urethra). [...] procedure uses radio frequencies to destroy and removea small amount of prostate tissue. ? Interstitial laser coagulation (ILC). This procedure uses a laser to destroy and remove a small amount of prostate tissue. ? Transurethral electrovaporization (TUVP). This procedure uses electrodes to destroy and remove a small amount of prostate tissue. ? Prostatic urethral lift. This procedure inserts an implant to push the lobes of the prostate awayfrom the urethra. Follow these instructions at home: ??? Take rsjd-yfb-uzjciwv and prescription medicines only as told by your health care provider. ??? Monitor your symptoms for any changes. Contact your health care provider with any changes. ??? Avoid drinking large amounts of liquid before going to bed or out in public. ??? Avoid or reduce how much caffeine or alcohol you drink. ??? Give yourself time when you urinate. ??? Keep all follow-up visits. This is important. Contact a health care provider if: ??? You have unexplained back pain. ??? Your symptoms do not get (more content not included)...[facility]04-10-2025 Evaluation note* Diagnosis Onset Date Resolution Status Admit Date Benign prostatic hyperplasia with lower urinary tract symptoms acute December 16, 2024 12:45pm CKD (chronic kidney disease) stage 3, GFR 30-59 ml/min acute December 16, 2024 12:45pm Hypertensive chronic kidney disease with stage 1 through stage 4 chronic ki acute December 16 12:45pm Pernicious anemia acute December 072024 12:45pm Retinal vein occlusion of right eye acute December 16, 2024 12:45pm Vitamin D deficiency acute Apri l 2024 12:45pm Squamous cell carcinoma of skin of left hand noneactive December 16 12:45pm Benign prostatic hyperplasia with lower urinary tract symptoms acute January 04, 2025 9:28am Celiac disease acute December 9:28am Chronic kidney disease acute Ap ril 2024 9:28am Chronic venous insufficiency of lower extremity acute January 04 9:28am KEVIN (generalized anxiety disorder) acute January 04, 2025 9:28am Primary hypertension acute Apri l 2024 9:28am Medicare annual wellness visit, subsequent noneactive January 04 9:28am [facility] Work Phone: 1([phone]) 606-881604-10-2025 Evaluation note* Diagnosis Onset Date Resolution Status Admit Date Benign prostatic hyperplasia with lower urinary tract symptoms acute December 16, 2024 12:45pm CKD (chronic kidney disease) stage 3, GFR 30-59 ml/min acute December 16, 2024 12:45pm Hypertensive chronic kidney disease with stage 1 through stage 4 chronic ki acute December 16 12:45pm Pernicious anemia acute December 072024 12:45pm Retinal vein occlusion of right eye acute December 16, 2024 12:45pm Vitamin D deficiency acute Apri l 2024 12:45pm Squamous cell carcinoma of skin of left hand noneactive December 16 12:45pm Benign prostatic hyperplasia with lower urinary tract symptoms acute January 04, 2025 9:28am Celiac disease acute December 9:28am Chronic kidney disease acute Ap ril 2024 9:28am Chronic venous insufficiency of lower extremity acute January 04, 2 025 9:28am KEVIN (generalized anxiety disorder) acute January 04, 2025 9:28am Primary hypertension acute Apri l 2024 9:28am Medicare annual wellness visit, subsequent noneactive January 04 9:28am Dysuria deleted January 13, 2025 2:39pm Chronic kidney disease acute Ma y 2024 11:44am KEVIN (generalized anxiety disorder) acute January 18, 2025 1 1:44am MCI (mild cognitive impairment) acute January 18, 2025 1 1:44am Primary hypertension acute January 18, 2025 11:44am [facility] Work Phone: 1(955) 984-585504-10-2025 Evaluation note* Diagnosis Onset Date Resolution Status Admit Date Benign prostatic hyperplasia with lower urinary tract symptoms acute December 16, 2024 12:45pm CKD (chronic kidney disease) stage 3, GFR 30-59 ml/min acute December 16, 2024 12:45pm Hypertensive chronic kidney disease with stage 1 through stage 4 chronic ki acute December 16 025 12:45pm Pernicious anemia acute December 072024 12:45pm Retinal vein occlusion of right eye acute December 16, 2024 12:45pm Vitamin D deficiency acute 2024 12:45pm Squamous cell carcinoma of skin of left hand noneactive December 16 12:45pm Benign prostatic hyperplasia with lower urinary tract symptoms acute January 04, 2025 9:28am Celiac disease acute December 9:28am Chronic kidney disease acute Ap ril 2024 9:28am Chronic venous insufficiency of lower extremity acute January 04, 025 9:28am KEVIN (generalized anxiety disorder) acute January 04, 2025 9:28am Primary hypertension acute Apri l 2024 9:28am Medicare annual wellness visit, subsequent noneactive January 04 9:28am Dysuria deleted January 13, 2025 2:39pm KEVIN (generalized anxiety disorder) acute January 18, 2025 1 1:44am MCI (mild cognitive impairment) acute January 18, 2025 1 1:44am Primary hypertension acute January 18, 2025 11:44am [facility] Work Phone: 1(672) 687-476012-24-2024 Evaluation note* Diagnosis Onset Date Resolution Status Admit Date Benign prostatic hyperplasia with lower urinary tract symptoms acute August 31, 8:51am Celiac disease acute August 092023 8:51am Chronic kidney disease acute De cem2023 8:51am Chronic venous insufficiency of lower extremity acute August 31, 8:51am KEVIN (generalized anxiety disorder) acute August 31 8:51am Primary hypertension acute Dece mber 2023 8:51am [facility] Work Phone: 1(331) 999-651012-23-2024 Evaluation note* Type Assessment Date assessment Trib rtnl vein occlusion, left e ye, with macular edema impression Trib rtnl vein occlu maribel, left eye, with macular edema: H34.8320. Let [facility] Work Phone: 1(674) 711-645812-23-2024 History of Present illness Narrative* Encounter Date [...] the left eye. reports stable vision The miryam gongora reports stable vision in both eyes since [...] 3-4 times last night while watching the [employer] game. referred by Dr. Andrei ruby for a retinal occlusion The 66 year old male referred by Dr. Zayas for a retinal occlusion in the left eye. [facility] Work Phone: [phone] Instructions* Date Instruction Additional Infor mation Impression/Plan [...] macular edema Return in 3 months w ith Khari Bates MD for follow up and OCT [...] Appropriate follow up with primary eye childcare administrator was recommended. Related to Trib rtnl vein [...] Appropriate follow up with primary eye childcare administrator was recommended. Related to Trib rtnl vein [...] degeneration, bilateral Return in [address] Bates for follow [...] possible Avastin. Return in [address] Bates for follow up exam with [...] Appropriate follow up with primary eye childcare administrator was recommended. Related to Trib rtnl vein [...] follow up exam, OCT and possible Avastin. Impression/Plan - Re gular follow up appointments [...] degeneration, bilateral Impression/Plan - RI GHT EYE: Macular Pucker [...] Appropriate follow up with primary eye childcare administrator was recommended. Related to Trib rtnl vein [...] Appropriate follow up with primary eye childcare administrator was recommended. Related to Trib rtnl vein [...] macula, right eye [facility] Work Phone: 1(240) 367-322010-24-2024 Evaluation note* Diagnosis Onset Date Resolution Status Admit Date Benign prostatic hyperplasia with lower urinary tract symptoms acute July 01 1:41pm CKD (chronic kidney disease) stage 3, GFR 30-59 ml/min acute Octobe 2023 1:41pm Hypertensive chronic kidney disease with stage 1 through stage 4 chronic ki acute July 01, 2024 1:41pm Pernicious anemia acute July 01, 2024 1:41pm Retinal vein occlusion of ri ght eye acute July 01 1:41pm Vitamin D deficiency acute Oct2023 1:41pm Benign prostatic hyperplasia with lower urinary tract symptoms acute August 31, 024 8:51am Celiac disease acute August 092023 8:51am Chronic kidney disease acute 2023 8:51am Chronic venous insufficiency of lower extremity acute August 31 2 024 8:51am KEVNI (generalized anxiety disorder) acute Derick 24th, 2 024 8:51am Primary hypertension acute Dece mber 2023 8:51am [facility] Work Phone: 1(792) 433-693908-26-2024 Evaluation note* Diagnosis Onset Date Resolution Status [...] 1:41pm Vitamin D deficiency acute 2023 1:41pm [facility] Work Phone: 1(215) 768-911104-15-2024 Hospital Discharge instructions Patient Education 12/22/2023 15:16:35 [...] urethra. Follow these instructions at home: Take yxda-jui-puhezkj and prescription medicines only as told by [...] provider. Document Revised: 03/13/2022 Document Reviewed: 03/13/2022 modulR Patient Education 2022 [employer]. Follow Up Care 11/25/2022 09:03:23 With:ANDREEA DIXON, Graham Ruby, URL Address: [facility] [address], [place] [address]- [phone] When: Unknown Comments:1 yr w/ PSA [facility] 03-22-2024 Evaluation note* Diagnosis Onset Date Resolution Status Pernicious anemia acute Chronic venous insufficiency of lower extremity acute Primary hypertension acute Stage 3a chronic kidney disease (CKD) [facility] Work Phone: 1(704) 347-467601-15-2024 Evaluation note* Encounter Date Diagnosis Assessment Notes Treatment Notes Treatment Clinical Notes Sep, Pernicious anemia (ICD-10 - D51.0) [facility] Other 01-12-2024 Evaluation note* Encounter Date Diagnosis [...] quality Sep, Pernicious anemia (ICD-10 - D51.0) [facility] Other 12-13-2023 Evaluation note* Encounter Date Diagnosis [...] may cause sedation Recheck in 1 mo [facility] Other 11-20-2023 Evaluation note* Encounter Date Diagnosis Assessment Notes Treatment Notes Treatment Clinical Notes Jul, Primary hypertension (ICD-10 - I10) [facility] Other 11-13-2023 Evaluation note* Encounter Date Diagnosis Assessment Notes Treatment Notes Treatment Clinical Notes Jul, Pernicious anemia (ICD-10 - D51.0) [facility] Other 09-11-2023 Evaluation note* Encounter Date Diagnosis Assessment Notes Treatment Notes Treatment Clinical Notes May, Pernicious anemia (ICD-10 - D51.0) [facility] Other 09-08-2023 Evaluation note* Encounter Date Diagnosis Assessment Notes Treatment Notes Treatment Clinical Notes May, Other osteoporosis without current pathological fracture (ICD-10 - M81.8) [facility] Other 08-10-2023 Evaluation note* Encounter Date Diagnosis [...] softeners for maintenance as well as Metamucil. [facility] Other 08-07-2023 Evaluation note* Encounter Date Diagnosis Assessment Notes Treatment Notes Treatment Clinical Notes Apr, Celiac disease (ICD-10 - K90.0) Patient advised to avoid gluten Apr, Encounter for screening for osteoporosis (ICD-10 - Z13.820) [facility] Other 06-05-2023 Evaluation note* Encounter Date Diagnosis Assessment Notes Treatment Notes Treatment Clinical Notes Feb, Pernicious anemia (ICD-10 - D51.0) [facility] Other 05-31-2023 Evaluation note* Encounter Date Diagnosis Assessment Notes Treatment Notes Treatment Clinical Notes January, Pernicious anemia (ICD-10 - D51.0) Continue monthly B12 injections January, Celiac disease (ICD-10 - K90.0) Continue Gluten free diet f/u GI January, Chronic idiopathic constipation (ICD-10 - K59.04) Miralax and Amitiza didn't help. Using Supp every 72 hours as needed. Push fluids [facility] Other 05-26-2023 Evaluation note* Encounter Date Diagnosis Assessment Notes Treatment Notes Treatment Clinical Notes January, Celiac disease (ICD-10 - K90.0) [facility] Other 05-01-2023 Evaluation note* Encounter Date Diagnosis [...] January, Iron deficiency anemia (ICD-10 - D50.9) [facility] Other 04-27-2023 Evaluation note* Encounter Date Diagnosis Assessment Notes Treatment Notes Treatment Clinical Notes Dec, Pernicious anemia (ICD-10 - D51.0) [facility] Other 04-12-2023 Evaluation note* Encounter Date Diagnosis [...] schedule CT scan to r/o obstructing mass [facility] Other 03-27-2023 Evaluation note* Encounter Date Diagnosis Assessment Notes Treatment Notes Treatment Clinical Notes Nov, Pernicious anemia (ICD-10 - D51.0) [facility] Other 03-27-2023 Evaluation note* Encounter Date Diagnosis [...] adequate fluid balance and to avoid dehydration. [facility] Other 03-20-2023 Hospital Discharge instructions Patient Education [...] urethra. Follow these instructions at home: Take vzqg-twh-zlxleek and prescription medicines only as told by [...] 08/25/2006 Document Revised: 07/20/2019 Document Reviewed: 09/29/2017 modulR Patient Education 2020 [employer]. Follow Up Care 11/23/2021 08:51:05 With:ANDREEA DIXON, Graham Ruby, URL Address: [facility] [address], [place] [address]- When: Unknown [facility] 02-23-2023 Evaluation note* Encounter Date Diagnosis Assessment Notes Treatment Notes Treatment Clinical Notes Oct, Pernicious anemia (ICD-10 - D51.0) [facility] Other 01-23-2023 Evaluation note* Encounter Date Diagnosis Assessment Notes Treatment Notes Treatment Clinical Notes Sep, Pernicious anemia (ICD-10 - D51.0) [facility] Other 01-20-2023 Evaluation note* Encounter Date Diagnosis Assessment Notes Treatment Notes Treatment Clinical Notes Sep, Anemia, unspecified type (ICD-10 - D64.9) [facility] Other 01-13-2023 Evaluation note* Encounter Date Diagnosis [...] High risk medication use (ICD-10 - Z79.899) [facility] Other Consult note* Clinical Note Date No Information [facility] Work Phone: Discharge summary* Clinical Note Date No Information [facility] Work Phone: Evaluation + Plan note Future Appointments Appointment Date:11/28/2023 08:30:00 AM Scheduled Provider:Graham VELAZQUEZ MD Location:[facility] Appointment Type:URO Office Visit Diagnostic Tests Pending * PSA Total 11/25/[address] [facility] evaluation + Plan note Future Appointments Appointment Date:12/27/2024 09:45:00 AM Scheduled Provider:Graham VELAZQUEZ MD Location:[facility] Appointment Type:URO Office Visit Diagnostic Tests Pending * PSA Total 12/22/[address] [facility] evaluation + Plan note Future Appointments Appointment Date:12/27/2024 09:45:00 AM Scheduled Provider:Graham VELAZQUEZ MD Location:[facility] Appointment Type:URO Office Visit [facility] evaluation noteNo InformationNort [employer] Other evaluation noteNo assessment information available [facility] Work Phone: evaluation note* Diagnosis Onset Date Resolution Status Pernicious anemia acute Chronic venous insufficiency of lower extremity acute Primary hypertension acute [facility] Work Phone: evaluledbb note* Diagnosis Onset Date Resolution Status Pernicious anemia acute Chronic venous insufficiency of lower extremity acute Primary hypertension acute Benign prostatic hyperplasia with lower urinary tract symptoms acute Celiac disease acute Chronic kidney disease acute Chronic venous insufficiency of lower extremity acute KEVIN (generalized anxiety disorder) acute Primary hypertension acute Medicare annual wellness visit, subsequent noneactive [facility] Work Phone: evaluation note* Diagnosis Onset Date Resolution Status Chronic venous insufficiency of lower extremity acute Primary hypertension acute Benign prostatic hyperplasia with lower urinary tract symptoms acute Celiac disease acute Chronic kidney disease acute Chronic venous insufficiency of lower extremity acute KEVIN (generalized anxiety disorder) acute Primary hypertension acute Medicare annual wellness visit, subsequent noneactive [facility] Work Phone: evaluation note* Diagnosis Onset Date Resolution Status Benign prostatic hyperplasia with lower urinary tract symptoms acute Celiac disease acute Chronic kidney disease acute Chronic venous insufficiency of lower extremity acute KEVIN (generalized anxiety disorder) acute Primary hypertension acute Medicare annual wellness visit, subsequent noneactive [facility] Work Phone: evaluation note* Diagnosis Onset Date Resolution Status Benign prostatic hyperplasia with lower urinary tract symptoms acute Celiac disease acute Chronic kidney disease acute Chronic venous insufficiency of lower extremity acute KEVIN (generalized anxiety disorder) acute Primary hypertension acute Medicare annual wellness visit, subsequent noneactive Benign prostatic hyperplasia with lower urinary tract symptoms acute Chronic kidney disease acute [id number] acute Other osteoporosis without c urrent pathological fracture acute Pernicious anemia acute Retinal vein occlusion of right eye acute [facility] Work Phone: Evaluation note* Diagnosis Onset Date Resolution Status Benign prostatic hyperplasia with lower urinary tract symptoms acute Chronic kidney disease acute [id number] acute Pernicious anemia acute Retinal vein occlusion of right eye acute Benign prostatic hyperplasia with lower urinary tract symptoms acute Chronic kidney disease acute [id number] acute Pernicious anemia acute Retinal vein occlusion of right eye acute [facility] Work Phone: Evaluation note* Diagnosis Onset Date Resolution Status Benign prostatic hyperplasia with lower urinary tract symptoms acute Chronic kidney disease acute [id number] acute Pernicious anemia acute Retinal vein occlusion of right eye acute Benign prostatic hyperplasia with lower urinary tract symptoms acute Chronic kidney disease acute [id number] acute Pernicious anemia acute Retinal vein occlusion of right eye acute Vitamin D deficiency acute [facility] Work Phone: evaluation note* Diagnosis Onset Date Resolution Status Benign prostatic hyperplasia with lower urinary tract symptoms acute Chronic kidney disease acute [id number] acute Pernicious anemia acute Retinal vein occlusion of right eye acute Benign prostatic hyperplasia with lower urinary tract symptoms acute Chronic kidney disease acute [id number] acute Pernicious anemia acute Retinal vein occlusion of right eye acute Vitamin D deficiency acute Benign prostatic hyperplasia with lower urinary tract symptoms acute Celiac disease acute Chronic kidney disease acute Chronic venous insufficiency of lower extremity acute KEVIN (generalized anxiety disorder) acute Primary hypertension acute [facility] Work Phone: Evaluation note* Diagnosis Onset Date Resolution Status Benign prostatic hyperplasia with lower urinary tract symptoms acute Chronic kidney disease acute [id number] acute Pernicious anemia acute Retinal vein occlusion of right eye acute Vitamin D deficiency acute Benign prostatic hyperplasia with lower urinary tract symptoms acute Celiac disease acute Chronic kidney disease acute Chronic venous insufficiency of lower extremity acute KEVIN (generalized anxiety disorder) acute Primary hypertension acute [facility] Work Phone: Evaluation note* Diagnosis Onset Date Resolution Status Benign prostatic hyperplasia with lower urinary tract symptoms acute Celiac disease acute Chronic kidney disease acute Chronic venous insufficiency of lower extremity acute KEVIN (generalized anxiety disorder) acute Primary hypertension acute Benign prostatic hyperplasia with lower urinary tract symptoms acute CKD (chronic kidney disease) stage 3, GFR 30-59 ml/min acute [id number] acute Pernicious anemia acute Retinal vein occlusion of right eye acute Vitamin D deficiency acute [facility] Work Phone: Evaluation note* Diagnosis Onset Date Resolution Status Admit Date Benign prostatic hyperplasia with lower urinary tract symptoms acute December 16, 2024 12:45pm CKD (chronic kidney disease) stage 3, GFR 30-59 ml/min acute December 16, 2024 12:45pm Hypertensive chronic kidney disease with stage 1 through stage 4 chronic ki acute December 16, 025 12:45pm Pernicious anemia acute December 072024 12:45pm Retinal vein occlusion of right eye acute December 16, 2024 12:45pm Vitamin D deficiency acute Apri 2024 12:45pm Squamous cell carcinoma of skin of left hand noneactive December 16 12:45pm [facility] Work Phone: History and physical note* Clinical Note Date No Information [facility] Work Phone: Hisqxue general Narrative - Reported* Type Description Date [...] CATARACT ECTRACTION, BILATERAL Hospitalization History SEE ABOVE [facility] Other Hislutj general Narrative - Reported* Type Description Date [...] polypectomy 01/25 23 Hospitalization History SEE ABOVE [place] [employer] [facility] [employer] Other History general Narrative - Reported* Type [...] inguinal hernia 04/2023 Hospitalization History SEE ABOVE [facility] Other History general Narrative - Reported* Type [...] inguinal hernia 04/2023 Hospitalization History SEE ABOVE [facility] Other Hospital course Narrative No data available for this section [facility] Hospital Discharge instructionsAmbulatory Orders* Referral to Nephrology Location: None Selected [facility] Work Phone: Hospital Discharge instructions No data available for this section [facility] Progress note No data available for this section [facility] progress note* Clinical Note Date No Information [facility] Work Phone: Reason for referral (narrative)* Reason *Waiting for appt Referral to confirm Celiac disease Diagnosis 1 Celiac disease (K90. 0) Referral Organization [facility] Adeline Hussein C keith Referring Provider First Name Anirudh Referring Provider Last Name Adeline Referring Provider Specialty Internal Me dicine Referred Organization [facility] Gastroenterolo gy Referred Provider Zeeshan Joe Referred Address [address],[facility] [address] ,[place], [place],[address] Referred Provider Specialty Gastroentero logy Referral Priority Routine General Notes Sanam Guido 11:00:10 AM >RECEIVED TODAY, SENT P [facility] Other Reason for referral (narrative)* Reason For Referral No Information [facility] Work Phone: Reason for referral (narrative)No reason for referral [facility] Summary Purpose Family History Relationship [...] lower urinary tract symptoms Chronic kidney disease [id number] Other osteoporosis without current pathological fracture Pernicious anemia Retinal vein occlusion of right eye Chief Complaint B12 B12 Shot RENAL CKD RENAL 2 WK F/U Reason for Visit Benign prostatic hyp erplasia with lower urinary tract symptoms Chronic kidney disease [id number] Pernicious anemia Retinal vein occlusion of right eye Benign prostatic hyperplasia with lower urinary tract symptoms Chronic kidney disease [id number] Pernicious anemia Retinal vein occlusion of right eye Chief Complaint B12 B12 Shot RENAL CKD RENAL 2 WK F/U B12 shot Reason for Visit Benign prostatic hyp erplasia with lower urinary tract symptoms Chronic kidney disease [id number] Pernicious anemia Retinal vein occlusion of right eye Benign prostatic hyperplasia with lower urinary tract symptoms Chronic kidney disease [id number] Pernicious anemia Retinal vein occlusion of right eye Vitamin D deficiency Chief Complaint B12 Shot RENAL CKD RENAL 2 WK F/U B12 shot 4 month check up Reason for Visit Benign prostatic hyp erplasia with lower urinary tract symptoms Chronic kidney disease [id number] Pernicious anemia Retinal vein occlusion of right eye Benign prostatic hyperplasia with lower urinary tract symptoms Chronic kidney disease [id number] Pernicious anemia Retinal vein occlusion of right [...] lower urinary tract symptoms Chronic kidney disease [id number] Pernicious anemia Retinal vein occlusion of right eye Benign prostatic hyperplasia with lower urinary tract symptoms Chronic kidney disease [id number] Pernicious anemia Retinal vein occlusion of right [...] lower urinary tract symptoms Chronic kidney disease [id number] Pernicious anemia Retinal vein occlusion of right [...] kidney disease) stage 3, GFR 30-59 ml/min [id number] Pernicious anemia Retinal vein occlusion of right [...] B12 shot November 30, 2024 8:5 5am Chief Complaint Admit Date B12 shot September 20, 2024 8 :46am b12 shot 2024 9:16am B12 shot November 30, 2024 8:5 5am RENAL 6 MONTH F/U December 16, 2024 12: 45pm Reason for Visit Admit Date Benign prostatic hyperplasia with lower urinary tract symptoms December 16, 2024 12:45pm CKD (chronic kidney disease) stage 3, GF R 30-59 ml/min December 16, 2024 12:45pm Hypertensive chronic kidney disease with stage 1 through stage 4 chronic ki December 16, 2024 12:45pm Pernicious anemia December 16, 2024 12: 45pm Retinal vein occlusion of right eye Apri l 2024 12:45pm Vitamin D deficiency December 16, 2024 12 :45pm Squamous cell carcinoma of skin of left hand December 16, 2024 12:45pm Chief Complaint Admit Date b12 shot 2024 9:16am B12 shot November 30, 2024 8:5 5am RENAL 6 MONTH F/U December 16, 2024 12: 45pm Medicare Wellness/B12 shot January 04, 9:28am Reason for Visit Admit Date Benign prostatic hyperplasia with lower urinary tract symptoms December 16, 2024 12:45pm CKD (chronic kidney disease) stage 3, GF R 30-59 ml/min December 16, 2024 12:45pm Hypertensive chronic kidney disease with stage 1 through stage 4 chronic ki December 16, 2024 12:45pm Pernicious anemia December 16, 2024 12: 45pm Retinal vein occlusion of right eye Apri l 2024 12:45pm Vitamin D deficiency December 16, 2024 12 :45pm Squamous cell carcinoma of skin of left hand December 16, 2024 12:45pm Benign prostatic hyperplasia with lower urinary tract symptoms January 04, 2025 9:28am Celiac disease January 04, 2025 9:2 8am Chronic kidney disease January 04, 2025 9:28am Chronic venous insufficiency of lower ex tremity January 04, 2025 9:28am KEVIN (generalized anxiety disorder) January 04, 2025 9:28am Primary hypertension January 04, 2025 9: 28am Medicare annual wellness visit, subseque nt January 04, 2025 9:28am Chief Complaint Admit Date b12 shot 2024 9:16am B12 shot November 30, 2024 8:5 5am RENAL 6 MONTH F/U December 16, 2024 12: 45pm Medicare Wellness/B12 shot January 04 9:28am cloudy urine January 13, 2025 2:39pm Chief Complaint Admit Date b12 shot 2024 9:16am B12 shot November 30, 2024 8:5 5am RENAL 6 MONTH F/U December 16, 2024 12: 45pm Medicare Wellness/B12 shot January 04 9:28am cloudy urine January 13, 2025 2:39pm memory issues January 18, 2025 11:44 am Reason for Visit Admit Date Benign prostatic hyperplasia with lower urinary tract symptoms December 16, 2024 12:45pm CKD (chronic kidney disease) stage 3, GF R 30-59 ml/min December 16, 2024 12:45pm Hypertensive chronic kidney disease with stage 1 through stage 4 chronic ki December 16, 2024 12:45pm Pernicious anemia December 16, 2024 12: 45pm Retinal vein occlusion of right eye Apri l 2024 12:45pm Vitamin D deficiency December 16, 2024 12 :45pm Squamous cell carcinoma of skin of left hand December 16, 2024 12:45pm Benign prostatic hyperplasia with lower urinary tract symptoms January 04, 2025 9:28am Celiac disease January 04, 2025 9:2 8am Chronic kidney disease January 04, 2025 9:28am Chronic venous insufficiency of lower ex tremity January 04, 2025 9:28am KEVIN (generalized anxiety disorder) January 04, 2025 9:28am Primary hypertension January 04, 2025 9: 28am Medicare annual wellness visit, subseque nt January 04, 2025 9:28am Dysuria January 13, 2025 2:39pm Chronic kidney disease January 18, 2025 11 :44am KEVIN (generalized anxiety disorder) January 062024 11:44am MCI (mild cognitive impairment) January 11:44am Primary hypertension January 18, 2025 11:4 4am Chief Complaint Admit Date B12 shot November 30, 2024 8:5 5am RENAL 6 MONTH F/U December 16, 2024 12: 45pm Medicare Wellness/B12 shot January 04 025 9:28am cloudy urine January 13, 2025 2:39pm memory issues January 18, 2025 11:44 am B12 Shot February 07, 2025 8:32a m Reason for Visit Admit Date Benign prostatic hyperplasia with lower urinary tract symptoms December 16, 2024 12:45pm CKD (chronic kidney disease) stage 3, GF R 30-59 ml/min December 16, 2024 12:45pm Hypertensive chronic kidney disease with stage 1 through stage 4 chronic ki December 16, 2024 12:45pm Pernicious anemia December 16, 2024 12: 45pm Retinal vein occlusion of right eye Apri l 2024 12:45pm Vitamin D deficiency December 16, 2024 12 :45pm Squamous cell carcinoma of skin of left hand December 16, 2024 12:45pm Benign prostatic hyperplasia with lower urinary tract symptoms January 04, 2025 9:28am Celiac disease January 04, 2025 9:2 8am Chronic kidney disease January 04, 2025 9:28am Chronic venous insufficiency of lower ex tremity January 04, 2025 9:28am KEVIN (generalized anxiety disorder) January 04, 2025 9:28am Primary hypertension January 04, 2025 9: 28am Medicare annual wellness visit, subseque nt January 04, 2025 9:28am Dysuria January 13, 2025 2:39pm KEVIN (generalized anxiety disorder) January 062024 11:44am MCI (mild cognitive impairment) January 11:44am Primary hypertension January 18, 2025 11:4 4am Chief Complaint Admit Date RENAL 6 MONTH F/U December 16, 2024 12: 45pm Medicare Wellness/B12 shot January 04, 025 9:28am cloudy urine January 13, 2025 2:39pm memory issues January 18, 2025 11:44 am B12 Shot February 07, 2025 8:32a m B12 shot March 10, 2025 8:34a m Chief Complaint Admit Date B12 Shot February 07, 2025 8:32a m B12 shot March 10, 2025 8:34a m B12 Shot April 28, 2025 8: 21am Additional Source Comments REASON FOR VISIT (unrecogniz ed section and content) WELLNESS MBLab ResultsB-12 S hot mbmedicationB-12 ShotB-12 ShotDigestive System IssuesCeliac resultsReferralMultiple IssuesBloating/GasIncreased PainB-12 ShotCONSULT FOR CELIAC DISEASESENDING LABS1 week follow upB-12 ShotmessageLab resultsNo InformationPATIENT IS HERE FOR FOLLOW UP TO DISCUSS CELIAC DISEASE6 month Follow up -b12Lab ResultsGASTRO CONSULTNo InformationB-12 ShotRefillDEXA [id number] QuestionHigh BP1 month Follow up1 month Follow [...] DO Primary Care Provider Active Start: December 06, 2024 Billy Mata MD Attending Provider Active Start : December 06, 2024 Team Status: Inactive Member Role Status Renato Wang DO Primary Care Provider Active Start: December 16, 2024 End: December 16, 2024 Billy Mata MD Attending Provider Active Start : December 16, 2024 End: December 16, 2024 Team Status: Inactive Member Role Status Renato Wang DO Primary Care Provide r, Attending Provider Active Start: January 04, 2025 End: January 04, 2025 Team Status: Inactive Member Role Status Renato Wang DO Primary Care Provider Active Start: January 13, 2025 End: January 13, 2025 Tricia Weiss MD Attending Provider Active St art: January 13, 2025 End: January 13, 2025 Team Status: Active Member Role Status Renato [...] 2023 Team Status: Active Member Role Status Dates Anirudh Ball , [...] Provide r, Attending Provider Active Start: January 18, 2025 End: January 18, 2025 Team Status: Inactive Member Role Status Dates Anirudh Wang DO Primary Care Provide r, Attending Provider Active Start: February 07, 2025 End: February 07, 2025 Team Status: Inactive Member Role Status Dates Anirudh Wang DO Primary Care Provider Active Start: January 04, 2025 End: January 04, 2025 Anirudh Wang , DO Attending Provider Active Sta rt: January 04, 2025 End: January 04, 2025 Team Status: Inactive Member Role Status Dates Anirudh Wang DO Primary Care Provider Active Start: January 18, 2025 End: January 18, 2025 Anirudh Wang , Attending Provider Active Sta rt: January 18, 2025 End: January 18, 2025 Team Status: Inactive Member Role Status Dates Anirudh Wang DO Primary Care Provider Active Start: February 07, 2025 End: February 07, 2025 Anirudh Wang DO Attending Provider Active Sta rt: February 07, 2025 End: February 07, 2025 Team Status: Inactive Member Role Status Dates Anirudh Wang DO Primary Care Provider Active Start: March 10, 2025 End: March 10, 2025 Anirudh Wang , Attending Provider Active Sta rt: March 10, 2025 End: March 10, 2025 Team Status: Inactive Member Role Status Dates Anirudh Wang DO Primary Care Provider Active Start: April 28, 2025 End: April 28, 2025 Anirudh Wang , DO Attending Provider Active Sta rt: April 28, 2025 End: April 28, 2025 (unrecognized sect ion and content) No Status Records FoundNo Status Records FoundNo Status Records FoundNo Status Records FoundNo Status Records Found INFORMATION SOURCE (unrecogn ized section and content) DATE CREATED AUTHOR 02/14/2023 [facility] DATE CREATED AUTHOR AUTHOR'S ORGANIZ ATION 04/21/2023 [facility] DATE CREATED AUTHOR AUTHOR'S ORGANIZ ATION 12/28/2024 [facility] DATE CREATED AUTHOR AUTHOR'S ORGANIZ ATION 02/17/2025 Hicks Aguada [facility] DATE CREATED AUTHOR AUTHOR'S ORGANIZ ATION 04/08/2025 [facility] Goals (unrecognized section and [...] BE BASED ON THE PRIMARY CLINICAL RECORDS. [facility]. provides no warranty or guarantee of the accuracy or completeness of information in this document.
== END 2025-05-17 08:53 | disposition home or self-care (01) ==
LOC: RAD 08:52
PROVIDERS: PCP Internal Medicine; Visit Provider Internal Medicine Rheumatology
DX: M81.0 Age-related osteoporosis without current pathological fracture (principal)
CPT/HCPCS: 77080

== ENCOUNTER 2025-07-11 13:42 | Outpatient (OUT) | payer MEDICARE, SELFPAY ==
--- OUTSIDE RECORDS SUMMARY | 2025-07-04 04:27 | XMS_ITS | Continuity of Care Document ---
Author Organization [facility] Address [address] [place] [address] Phone Care Team Providers Care High Pressure Operator Name Role Phone Anirudh Wang DO Primary Care Provider Anirudh Wang DO Attending Provider Care Teams Patient Care Team Team Status: Active Member Role/Relationship Status Dates Anirudh Wang DO Primary Care Provider Active Visit Care Team Team Status: Inactive Member Role/Relationship Status Dates Anirudh Wang DO Primary Care Provider Active Start: April 28, 2025 End: April 28Arlene Mcfarland ProviderActiveStart: April 28, 2025 End: April 28, 2025 Visit Care Team Team Status: Inactive Member Role/Relationship Status Dates Anirudh Wang DO Primary Care Provider Active Start: May 30, 2025 End: May 30Arlene Mcfarland ProviderActiveStart: May 30, 2025 End: May 30, 2025 Visit Care Team Team Status: Inactive Member Role/Relationship Status Dates Anirudh Wang DO Primary Care Provider Active Start: June 27, 2025 End: June 27Arlene Mcfarland ProviderActiveStart: June 27, 2025 End: June 27, 2025 Patient Care Team Team Status: Inactive Member Role/Relationship Status Dates Anirudh Wang DO Primary Care Provider Active Start: July 04, 2025 End: July 04brina Wang DOAttrajeev ProviderActiveStart: July 04, 2025 End: July 04, 2025 Chief Complaint and Reason for Visit Chief Complaint Admit Date B12 Shot April 28, 2025 8: 21am b12 shot May 30, 2025 8:33am 6 month f/u June 27, 2025 9 :17am B12 injection July 04, 2025 9 :03am Reason for Visit Admit Date Benign prostatic hyperplasia with lower urinary tract symptoms June 27, 2025 9:17am Celiac disease June 27, 2025 9 :17am Chronic kidney disease June 27 9:17am Chronic venous insufficiency of lower ex tremity June 27, 2025 9:17am Diplopia June 27, 2025 9 :17am KEVIN (generalized anxiety disorder) Octob er 2024 9:17am Other osteoporosis without current patho logical fracture June 27, 2025 9:17am Primary hypertension June 27, 2025 9:17am Allergies, Adverse Reactions, Alerts Allergen Type Severity Reaction Last Updated Verified Status doxycycline Allergy Unknown Unknown Reaction July 04, 2025 9:06am Yes Active Social History Smoking Status Status Start Date End Date Date of Observa tion Never smoked tobacco (finding) January 04, 2025 9:49am Observation Status Observation Response Date of Response Legal Sex [facility] (finding) [facility] 1950 Family History Relationship Condition Age at Onset Recorded Date/T jj father Carcinoma of peritoneum Unknown Heart diseaseUnknownmotherHypertensionUnknown Problems Active Problems Problem Diagnosis/Recorded Date Onset Date Status C omments Retinal vein occlusion of right eye October 24, 2023 10:51am Unknown Active Chronic venous insufficiency of lower extremityFebruary 2023 1:36pmUnknown ActiveGAD (generalized anxiety disorder)October 24, 2023 10:51amUnknownActive Other osteoporosis without current pathological fractureFebruary 2023 10:51amUnknownActiveDiplopiaOctober 2024 10:03amUnknownActiveCKD (chronic kidney disease) stage 3, GFR 30-59 ml/minOctober 2023 2:36pmUnknownActive Pernicious anemiaFebruary 2023 10:51amUnknownActiveHypertensive chronic kidney disease with stage 1 through stage 4 chronic kidney disease, or unspecif ied chronic kidney diseaseJuly 2023 2:42pmUnknownActiveChronic kidney diseaseApril 2023 9:37pmUnknownActiveMCI (mild cognitive impairment)January 16, 2025 7:35amUnknownActivePrimary hypertensionFebruary 2023 10:51am UnknownActiveBenign prostatic hyperplasia with lower urinary tract symptoms October 24, 2023 10:51amUnknownActiveVitamin D deficiencyJuly 2023 12:31pmUnknownActiveCeliac diseaseFebruary 2023 10:52amUnknownActive Inactive/Resolved Problems Problem Diagnosis/Recorded Date Onset Date Status C omments Other acute postprocedural pain April 10, 2023 9:42am Unknown Resolved Prob kisha List clean-up per request of Phys. EHR Cmte Medications Medication Status Dose Units Route Directions Qty Days Refills S tart Date Stop Date End Date Reason(s) Instructions Adherence Escitalopram Oxalate 10 mg tablet Discontinued 0 .ROUTE.JUHBXPH262Fljej 2023 7:28pmAugust 2023 9:45amTAKE 1 TABLET BY MOUTH EVERY DAY FOR 30 DAYSFolic Acid 1 mg fmhhgcCizwvngdganr7CIBHVztpr31847Ixq 2023 3:39pmJune 2024 8:38amBenazepril 10 mg vdzlhnFeqsgytozbjt24LKNF Yaxpz86545Eam 2023 3:40pmMay 2024 7:36amEscitalopram Oxalate 10 mg tabletDiscontinued0.ROUTE.FYHEQBI121Rbejyfe 2023 8:42amDecember 2023 10:07amTAKE 1 TABLET BY MOUTH EVERY DAY FOR 30 DAYSAmlodipine 5 mg tablet Discontinued0.ROUTE.ZVQRRXL266Retihcfw 2024 9:43amApril 2024 12:55pm TAKE 1 TABLET BY MOUTH EVERY DAY FOR 90 DAYSBenazepril 10 mg tabletActive0.ROUTE .AMKLVQK497Tmb 2024 7:36amTAKE 1 TABLET BY MOUTH DAILYComplies with drug therapyFolic Acid 1 mg utgqrlLzenet2CUQVBelwm68437Divj 2024 8:38amComplies with drug therapyEscitalopram Oxalate 10 mg tabletActive0.ROUTE.OTEBYOV198Blhe 2024 7:40amTAKE 1 TABLET BY MOUTH EVERY DAYComplies with drug therapy Tamsulosin 0.4 mg capsuleActive0.ROUTE.VLELHNT966Yuncqg 2024 6:14pmTAKE 1 CAPSULE BY MOUTH DAILY AT BEDTIMEComplies with drug therapyCyanocobalamin (Vitamin B-12) (Vitamin B-12) 100 mcg/mL SolutionDiscontinued0.ROUTE.COMPLEXJuly 2022 12:00amFebruary 2023 10:54ampatient reports vitatmin b-12 shot once a month, unaware of dosageCholecalciferol (Vitamin D3) (Vitamin D3) 25 mcg (1,000 unit) IzqyreKzzhtgyzlnoq7917JGSOWXDoqvkFfdh 2022 12:00amFebruary 2023 10:54amHydrocodone-Acetaminophen 5-325 mg exbcbnBmnufswdcmns7SHENRT1P as needed for tspn5773Itfich 2022February 2023 10:55amOther acute postprocedural pain Other acute postprocedural painAmlodipine 5 mg qmdyhjAwlcopsjxwmx6REYNBlgnp eveningMay 2022 12:00amFebruary 2024 9:43amTamsulosin 0.4 mg capsule Discontinued0.4MGPODailyMay 2022 12:00amFebruary 2023 10:55amFolic Acid 1 mg gjvmxsIcwvsgekovbz7JNAZAygyiEsh 2022 12:00amMay 2023 3:40pmBenazepril 10 mg tsbljnMdgzkvzrbquu07VDGJPlbncWmq 2022 12:00amMay 2023 3:40pmLorazepam 0.5 mg tabletDiscontinued0.5MGPOEvery 6 oufcf91222 January 01, 2024 9:55amJuly 2023 2:26pmGeneralized anxiety disorder Generalized anxiety disorderCalcium Carbonate-Vitamin D3 (Calcium 600 With Vitamin D3) 600 mg-12.5 mcg (500 unit) suazejgUqhhzx1WOTGUdmrngMkpj 2023 12:00amComplies with drug therapyAmlodipine 5 mg gmzaxuJcdwfm3JBKKYultsAnghc 2024 12:54pmComplies with drug therapyEscitalopram Oxalate 10 mg tablet Fjebdwhdhpim54AXSEIqvtqOptkt 2024 12:54pmJuly 2024 7:41amAspirin 81 mg tablet,delayed release (DR/EC)Ntdhcx85VFQTLnvajQejgqhax 2023 1:00am Complies with drug therapyEscitalopram Oxalate 10 mg bcxpnpCclsccglwdym34XRYI DailyFebruary 2023 1:00amApril 2023 7:29pmFreeTextSi tablet Orally Once a day; Note: Source Status: Taking; Refills: 5; Provider: Felipe hurst EAlendronate 70 mg tablet, tksvwgjnjdsyLtyhfhpesglc23LUSMMuwfzWuyhgwst 2023 1:00amJuly 2023 2:26pm1 tablet 30 minutes before the first food, beverage or medicine of the day dissolved in 4 ounces ofwaterTamsulosin (Flomax) 0.4 mg capsuleDiscontinued0.4MGPODailyFebruary 2023 1:00amJuly 2023 2:26pmLorazepam 0.5 mg tabletDiscontinued0.5MGPOEvery 6 hoursFebruary 2023 1:00amApril 2023 9:57amEscitalopram Oxalate 10 mg tablet Zstpzfzhfmlk55AETJAcwdnSuwtea 2023 9:45amOctober 2023 8:43am Tamsulosin 0.4 mg capsuleDiscontinued0.4MGPODaily at fxaausr48982Ttmdmr 2023 12:00amAugust 2024 6:14pmEscitalopram Oxalate 10 mg tablet Discontinued0.ROUTE.ZTXYMSF937Ghfkpunf 2023 10:07amApril 2024 12:55pmTAKE 1 TABLET BY MOUTH EVERY DAY FOR 30 DAYS Medical Equipment Device Date Implanted Device Details Abdominal hernia surgical me sh, synthetic polymer, non-bioabsorbable April 10, 2023 SAUNDRA: ([id number] Issuing Agency: [facility] Device Id: [id number] Expiration Date: 2027-07-05 Lot Number: [id number] Vital Signs Vital Reading Result Reference Range Collection Date/Time Height 71 [in_i] June 27, 2025 9:47moAaeuga81.53 kgOctpaintsville [facility] 2024 9:32amHeart Rate80 /olu04-730Wjipcjk 2024 9:32amRespiratory rate12 /zek04-53Gyaffxw 2024 9:32amBP Nuheblfc720 mm[Hg]100-140Octpaintsville [facility] hospital 2024 9:32amBP Dkxtpqnef22 mm[Hg]60-100Octpaintsville [facility] 2024 9:32amBMI (Body Mass Index)25.9 kg/y2Wocswjv 2024 9:32am Advance Directives Advance Directive Response Recorded Date/ Time Advance Directives nn January 15 9:48am Insurance Providers Guarantor Marcelino Escobar Address [address] [place] [id number] Info.Home Phone: Payer Group Member ID Coverage Type Subscriber Relationship to Subscriber Effective Date Expiration Date [employer] [facility] [employer] Retired Id: [id number] L Meyer Id: [id number] [address] [facility] [id number] Home Phone: Self Encounters Encounter Location(s) Arrival/Admit Date Discharge/Departure Date Discharge/Departure Disposition Provider(s) Departed Physician/ Provider Office Visit -[facility] April 28, 2025 8:21am April 28, 2025 8:35am Discharged to home care or self care (routine discharge) Anirudh Wang DO Departed Physician/ Provider Office Visit -[facility] May 30, 2025 8:33am May 30, 2025 9:00am Discharged to home care or self care (routine discharge) Anirudh Wang DO Departed Physician/ Provider Office Visit -[facility] June 27, 2025 9:17am June 27, 2025 10:01am Discharged to home care or self care (routine discharge) Anirudh Wang DO Departed Physician/ Provider Office Visit -[facility] July 04, 2025 9:03am July 04, 2025 9:24am Discharged to home care or self care (routine discharge) Anirudh Ball , DO Recent Diagnosis Onset Date Admit Date Benign prostatic hyperplasia with lower urinary tract symptoms Unknown June 27, 2025 9:17am Celiac disease Unknown June 27 9:17am Chronic kidney disease Unknown June 092024 9:17am Chronic venous insufficiency of lower extremity Unknown June 27, 2025 9:17am Diplopia Unknown June 27 9:17am KEVIN (generalized anxiety disorder) Unknown June 27, 2025 9:17am Other osteoporosis without c urrent pathological fracture Unknown June 27, 2025 9:17am Primary hypertension Unknown June 9:17am Assessments Diagnosis Onset Date Resolution Status Admit Date Benign prostatic hyperplasia with lower urinary tract symptoms acuteOctober 2024 9:17amCeliac diseaseacuteOctober 2024 9:17am Chronic kidney diseaseacuteOctober 2024 9:17amChronic venous insufficiency of lower extremityacuteOctober 2024 9:17amDiplopiaacuteOctober 2024 9:17amGAD (generalized anxiety disorder)acuteOctober 2024 9:17amOther osteoporosis without current pathological fractureacuteOctober 2024 9:17am Primary hypertensionacuteOctober 2024 9:17am Plan of Treatment Author [facility]ud[facility] Fel[facility] 20[facility] 10:04amI instructed this patient on the benefits of adequate control of hypertension and diabetes, if appropriate. I have also instructed them to avoid use of NSAIDs due to the adverse effects on renal function. I instructed them on adequate fluid balance and to consume at least 48 oz of fluids daily. I also instructed them to monitor for an unexplained increase in weight and lower extremity edema. They have been instructed to notify the office for any changes or concerns. No s/s obstructive uropathy and euvolemic BP controlled f/u Nephrology I have instructed this patient to consume a healthy, low-fat, low-salt diet. I have also encouraged them to continue exercise with weight loss to achieve/maintain a BMI < 30. I have instructed this patient on the correct procedure for obtaining home BP measurements:? - rest for 5 minutes w/o talking. - positioned w/ feet on floor and arms supported. - average best 2/3 readings w/ goal < 135/85. - update office w/ home readings in 2 weeks. Continue Amlodipine and Benazepril without interruption I have instructed this patient to avoid salt and elevate their lower extremities. I have also recommended use of support stockings. I instructed them to inspect their legs and feet daily for blisters and ulcerations. Stable w/ correction of anemia and vitamin deficiencies. f/u GI Continue gluten free diet Instructed on a healthy diet and exercise routine. Instructed to continue medical treatment w/o interruption. Instructed to avoid abrupt d/c of medication due to w/d symptoms. Continue Lexapro without interruption Continue Flomax and yearly PSA f/u Urology Instructed to continue calcium and vitamin D supplements. Instructed on weight bearing exercises. Monitor w/ DEXA qoy. Due to Celiac disease DEXA 06/2025 Occurs w/ lateral gaze. He denies any associated unilateral weakness, facial droop, dysarthria He denies headache He has seen his Ophthalogist who referred back to his Polymerization Oven Operator for prisms Future Tests Future scheduled test information is unavailable Pending Tests Pending diagnostic test information is unavailable Future Visits Future appointment information is unavailable Future Procedures Future procedure information is unavailable Future Medications Future medication information is unavailable Patient Instructions Patient instructions are unavailable
--- OUTSIDE RECORDS SUMMARY | 2025-07-11 13:46 | XMS_ITS | Clinical Summary ---
Author Organization [facility] Address [address] [place] [address] Care Team Providers Care Noodle Maker Name Role Phone Anirudh Wang DO Primary Care Provider [phone] Allergies Active AllergyReactionsCriticalityNoted IuuvOemtomfuRknwfegcbas26/09/2023 Other Reaction(s): Unknown Medications MedicationSigDispense QuantityRefillsLast FilledStart DateEnd DateStatus amLODIPine (Norvasc) 5 MG tablet Take 5 mg by mouth in the morning.11/15/2022ctive benazepril (Lotensin) 10 MG tablet 01/08/2023ctive folic acid (Folvite) 1 MG tablet 12/26/2022ctive tamsulosin (Flomax) 0.4 MG 24 hr capsule TAKE 1 CAPSULE BY MOUTH DAILY 30 MINUTES AFTER EVENING MEAL11/12/2022ctive cyanocobalamin (Vitamin B-12) 1,000 mcg/mL oral liquid 1 (one) time.Active HYDROcodone-acetaminophen ([place]) 5-325 MG tablet 04/10/2023ctive Active Problems ProblemNoted DateDiagnosed DateAbdominal pain, left lower eupvjnpb09/09/2023 Altered bowel uopjrqfo33/09/2023MI 23.0-23.9, adult04/16/2023PH with urinary hlkoqlrkcag65/09/2023eliac vldrsbb8204/16/20230296Iikkeaxlauiw13/09/2023Urge mpvtegjwtcnb50/09/2023ge-related nuclear cataract of left eye03/10/2023 Epiretinal fgtobofx94/03/2023osterior vitreous detachment of left eye03/10/2023 Zpeqirzouxwr48/03/2023Sensorineural hearing loss (SNHL) of both ears03/10/2023 Tinnitus of right ear03/10/2023Venous retinal branch qohgkayyt73/03/2023Left inguinal mgrifr0303/10/2023 Family History Medical HistoryRelationNameCommentsCancerFatherGlaucomaMotherParkinsonismMother MelanomaNeg HtHypfzwuaYnwqElywohGjmnughyRwddxeyNxfjvAynwvsssh6LpcrjsXsngqxnu MotherDeceasedSisterAlive Social History Tobacco UseTypesPacks/DayYears UsedDateSmoking Tobacco: NeverSmokeless Tobacco: NeverAlcohol UseStandard Drinks/WeekCommentsNever0 (1 standard drink = 0.6 oz pure alcohol)Sex and Gender InformationValueDate RecordedSex Assigned at Not on fileLegal AkrSngq7211/20/2022 6:48 PM EDTGender IdentityNot on fileSexual OrientationNot on file Last Filed Vital Signs Vital SignReadingTime TakenCommentsBlood Bnmrneug473/72004/01/2023 11:33 AM EDT Pulse--Temperature--Respiratory Rate--Oxygen Saturation--Inhaled Oxygen Concentration--Drwvkh31.3 kg (166 lb)04/30/2023 9:32 AM ETIEhvdgg376.3 cm (5' 11 )04/30/2023 9:32 AM EDTBody Mass Index23.1508 9:32 AM EDT Plan of Treatment Not on file Insurance Care Teams Team MemberRelationshipSpecialtyStart DateEnd Date Anirudh Wang DO PCP - GeneralInternal Medicine03/07/23
--- OUTSIDE RECORDS SUMMARY | 2025-07-11 13:50 | XMS_ITS | CCD ---
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 Name Role Phone Anirudh Lr Unavailable ANIRUDH LR Primary Care Physician [phone] Asaad, Imad Unavailable ANDREEA ., DR STEVENSON Attending Unavailable ANDREEA ., DR STEVENSON Consulting Unavailable ANDREEA ., DR STEVENSON Admitting Unavailable ADELINE, DR OLEARY Primary Care Unavailable BALL, DR OLEARY Admitting Unavailable BALL, DR OLEARY Attending Unavailable ADELINE, DR OLEARY Consulting Unavailable ADELINE, DR OLEARY Primary Care Unavailable DEVI, IMADOLFO Admitting Unavailable ADELINE, DR OLEARY Primary Care Unavailable ASAADOLFO, VAUGHN Attending Unavailable [...] Admitting Unavailable BALL, DR OLEARY Attending Unavailable ADELINE, DR OLEARY Consulting Unavailable ADELINE, DR OLEARY Primary Care Unavailable MD Vaughn Pretty Attending Provider DO Anirudh Lr Primary Care Provider MD Ryan Arriaga Attending Provider Asaad, Imadolfo Attending Unavailable Anirudh Lr Primary Care Unavailable Devi, Imadolfo Admitting Unavailable Anirudh Lr Primary Care Unavailable Ryan Arriaga Admitting Unavailable Ryan Arriaga Attending Unavailable Anirudh Lr Primary Care Unavailable Ryan Arriaga Admitting Unavailable Ryan Arriaga Attending Unavailable Tricia Weiss Unavailable Igor Boswell MD, Ashkan Unavailable UnavailGraham Proctor Attending Unavailable Graham DORAN Attending Unavailable Graham DORAN Attending Unavailable DORAN, Graham R Admitting Unavailable DEVEN HANNA Attending Unavailable ANDREEA, Graham R Attending Unavailable DORAN, Graham R Attending Unavailable DORAN, Graham R Attending Unavailable ANDREEA, Graham R Admitting Unavailable Adeline GUZMAN Anirudh Primary Care Provider [phone] Billy Mata MD Attending Provider [phone] Adeline GUZMAN, Anirudh Attending Provider [phone] Tricia Weiss MD Attending Provider [phone] Al Shweiki, Ashkan Attending Unavailable Al Shweiki, [...] Al Ashkan Boswell MD Unavailable Unavailabl e Adeline GUZMAN Anirudh Primary Care Provider Adeline GUZMAN, Anirudh Attending Provider Ball DO, Anirudh Primary Care Provider [phone] Adeline GUZMAN, Anirudh Attending Provider Ball DO, Anirudh Primary Care Provider Ball , Anirudh Attending Provider [phone] Allergies Allergy ClassificationReported Allergen(s)Allergy TypeDate of OnsetReaction(s) Facility (20 sources)DoxycyclineDrug AllergyUnkSpangle Other (4 sources)patient allergy list reviewed by nurse or physiciaPropensity to adverse uikalzxoo08-75-3397Cbdvnta:[facility] Other (1 source)DoxycyclineDrug AllergyiContainers Other (2 sources)Amoxicillin; Translations: [amoxicillin]Drug Jxzwqrt36-77-4604Istthbq CVP Physicians Medications Current Medications MedicationDrug Class(es)DatesSig (Normalized)Sig (Original)amLODIPine 5 mg oral tablet (20 sources)Dihydropyridine Calcium Channel BlockerStart: 65-51-2064zubu 1 tablet by mouth once dailyAmlodipine 5 mg tablet Active 5 MG PO Daily December 16, 2024 12:54pm Complies with drug therapyStart: 10-24-2024 End: 24-74-6628looi 1 tablet by mouth once dailyAmlodipine 5 mg tablet Discontinued 0 .ROUTE .COMPLEX 90 3 October 24, 2024 9:43am December 16, 2024 12:55pm TAKE 1 TABLET BY MOUTH EVERY DAY FOR 90 DAYSStart: 11-25-2022 End: 86-83-3531tieu 1 tablet by mouth once daily in the eveningAmlodipine 5 mg tablet Discontinued 5 MG PO Every evening January 23, 2023 12:00am October 24, 2024 9:43amaspirin 81 mg delayed release oral tablet (20 sources)Platelet Aggregation Inhibitor, Nonsteroidal Anti-inflammatory Drug Start: 20-13-5096wckv 1 tablet by mouth once dailyAspirin 81 mg tablet,delayed release (DR/EC) Active 81 MG PO Daily October 24, 2023 1:00am Complies with drug therapytake 1 tablet by mouth every twenty-four hoursAspirin 81 81 MG 1 tablet Orally Once a day Activebenazepril hydrochloride 10 mg oral tablet (20 sources)Angiotensin Converting Enzyme InhibitorStart: 21-52-0519mlri 1 tablet by mouth once dailyBenazepril 10 mg tablet Active 0 .ROUTE .COMPLEX 90 3 January 27, 2025 7:36am TAKE 1 TABLET BY MOUTH DAILY Complies with drug therapy Start: 01-23-2023 End: 65-44-4689uluw 1 tablet by mouth once dailyBenazepril 10 mg tablet Discontinued 10 MG PO Daily 90 90 3 January 29, 2024 3:40pm January 27, 2025 7:36am Start: 97-89-8412gnhm 1 mg by mouth once dailybenazepril 5 mg oral tablet mg tab(s), Oral, Daily, Refills(s) 0 Start Date: 11/11/19 Status: OrderedRepeat number: 1calcium carbonate 1500 mg / cholecalciferol 500 unt oral capsule (20 sources)Vitamin DStart: 24-71-0510nyqj 1 capsule by mouth once dailyCalcium Carbonate-Vitamin D3 (Calcium 600 With Vitamin D3) 600 mg-12.5 mcg (500 unit) capsule Active 1 CAP PO daily March 18, 2024 12:00am Complies with drug therapy dextran 70 1 mg/ml / hypromellose 3 mg/ml ophthalmic solution (2 sources)Plasma Volume ExpanderArtificial Tears (PF) drops in a dropperette - Activeescitalopram 10 mg oral tablet (20 sources)Serotonin Reuptake InhibitorStart: 28-65-5232vviz 1 tablet by mouth once dailyEscitalopram Oxalate 10 mg tablet Active 0 .ROUTE .COMPLEX 90 1 March 15, 2025 7:40am TAKE 1 TABLETBY MOUTH EVERY DAY Complies with drug therapy Start: 12-16-2024 End: 23-15-2062hrte 1 tablet by mouth once dailyEscitalopram Oxalate 10 mg tablet Discontinued 10 MG PO Daily December 16, 2024 12:54pm March 15, 2025 7:41amStart: 06-14-2024 End: 60-64-9879nscv 1 tablet by mouth once dailyEscitalopram Oxalate 10 mg tablet Discontinued 0 .ROUTE .COMPLEX 90 1 August 31, 2024 10:07am December 16, 2024 12:55pm TAKE 1 TABLET BY MOUTH EVERY DAY FOR 30 DAYSStart: 12-22-2023 End: 65-16-0637kbcx 1 tablet by mouth once dailyEscitalopram Oxalate 10 mg tablet Discontinued 10 MG PO Daily May 03, 2024 9:45am June 8:43amStart: 12-15-2023 End: 00-12-0657mrnk 1 tablet by mouth once dailyEscitalopram Oxalate 10 mg tablet Discontinued 0 .ROUTE .COMPLEX 90 1 December 15, 2023 7:28pm 2023 9:45am TAKE 1 TABLET BY MOUTH EVERY DAY FOR 30 DAYSStart: 10-24-2023 End: 93-37-0518tjkh 1 tablet by mouth once dailyEscitalopram Oxalate 10 mg tablet Discontinued 10 MG PO Daily October 24, 2023 1:00am December 7:29pm FreeTextSi tablet Orally Once a day; Note: Source Status: Taking; Refills: 5; Provider: Adeline Oleary EStart: 92-60-9111ibot 1 tablet by mouth every twenty-four hoursEscitalopram Oxalate 10 MG 1 tablet Orally Once a day for 30 days Aug, Activeindomethacin 50 mg oral capsule (20 sources)Nonsteroidal Anti-inflammatory Drugtake 1 capsule by mouth every twelve hoursIndomethacin 50 MG 1 capsule with food or milk Orally Twice a day Activeketorolac tromethamine 4 mg/ml ophthalmic solution (3 sources)Nonsteroidal Anti-inflammatory Drug, Cyclooxygenase InhibitorStart: 04-30-2024 End: 82-74-7367upfz 1 drop(s) into the eye(s) three times dailyketorolac 0.4 % eye drops instill 1 drop by ophthalmic route 3 times every day into the left eye - Active substitutions are acceptableComment on above:substitutions are acceptablelubiprostone 0.008 mg oral capsule (7 sources)Chloride Channel ActivatorStart: 37-00-1386epnr 1 capsule by mouth twice daily at mealtimeLubiprostone 8 MCG 1 capsule with food and water Orally Twice a day for 30 days January, Activemineral oil 0.15 mg/mg / petrolatum 0.83 mg/mg ophthalmic ointment (2 sources)Artificial Eye Lubricant 83 %-15 % ointment - ActiveMiraLax 17 GM/SCOOP (12 sources)Start: 88-40-8492Ahagz: 52-03-2736cxhe 17 g by mouth once daily MiraLax 17 GM/SCOOP as directed Orally Once a day for 30 days Dec, Activepolysaccharide iron complex 150 mg oral capsule (5 sources)Start: 13-37-9240xxjc 1 capsule by mouth every twenty-four hours Ferrex 150 150 MG 1 capsule Orally Once a day for 90 days Sep, Active Psyllium (16 sources)Start: 41-63-1135Ucqkb: 38-05-2903Wsjchcpjl 28 % 1 packet with 8 ounces of liquid as needed Orally Once a day for 30 days Nov, Active tamsulosin hydrochloride 0.4 mg oral capsule (20 sources)alpha-Adrenergic BlockerStart: 91-95-1341zlta 1 capsule by mouth once daily at bedtimeTamsulosin 0.4 mg capsule Active 0 .ROUTE .COMPLEX 90 May 01, 2025 6:14pm TAKE 1 CAPSULE BY MOUTH DAILY AT BEDTIME Complies with drug therapyStart: 05-03-2024 End: 86-44-9495jjrr 1 capsule by mouth once daily at bedtimeTamsulosin 0.4 mg capsule Discontinued 0.4 MG PO Daily at bedtime 90 90 3 May 03, 2024 12:00amAugust 2024 6:14pmStart: 11-25-2022 End: 40-81-5562jcmt 1 capsule by mouth once dailyTamsulosin (Flomax) 0.4 mg capsule Discontinued 0.4 MG PO Daily October 24, 2023 1:00am March 18, 2024 2:26pmvitamin B12 (3 sources)Vitamin A08Sstvf: 75-03-2364Thynlfr B12 Refills(s) 0 Start Date: 11/22/19 Status: Ordered Repeat number: 1Start: 24-52-3266Rwnzkpa B12 Refills(s) 0 Start Date: 11/22/19 Status: OrderedVitamin D (3 sources)Start: 56-09-8134Vhjfths D International_Unit, Oral, Daily, Refills(s) 0 Start Date: 11/20/20 Status: Ordered Repeat number: 1Start: 28-91-4522Vriurld D International_Unit, Oral, Daily, Refills(s) 0 Start Date: 11/20/20 Status: Ordered Completed/Discontinued Medications MedicationDrug Class(es)DatesSig (Normalized)Sig (Original)acetaminophen 325 mg / HYDROcodone bitartrate 5 mg oral tablet (20 sources)Opioid AgonistStart: 04-10-2023 End: 96-62-2147ibgr 1 tablet by mouth every six hours as needed for pain Hydrocodone-Acetaminophen 5-325 mg tablet Discontinued 1 TAB PO Q6H as needed for pain 20 5 0 April 10, 2023 October 24, 2023 10:55am Other acute postprocedural pain Other acute postprocedural painalendronic acid 70 mg effervescent oral tablet (20 sources)BisphosphonateStart: 10-24-2023 End: 92-80-6484Jxggfhxeyqd 70 mg tablet, effervescent Discontinued 70 MG PO Daily October 24, 2023 1:00am March 18, 2024 2:26pm 1 tablet 30 minutes before the first food, beverage or medicine of the day dissolved in 4 ounces of waterStart: 10-24-2023 End: 64-42-6371Uiatmdmykuc Discontinued 70 MG PO Daily October 24, 2023 1:00am March 18, 2024 2:26pm 1 tablet 30 minutes before the first food, beverage or medicine of the day dissolved in 4 ounces of waterStart: 05-16-2023 take 1 tablet by mouth once daily, then take 4 tablets by mouth once daily Alendronate Sodium 70 MG 1 tablet 30 minutes before the first food, beverage or medicine of the daydissolved in 4 ounces of water Orally Once a day for 30 days May, ActiveAlendronate 70 mg tablet, effervescent (9 sources)Start: 10-24-2023 End: 61-62-9256Fgveqzsrglk 70 mg tablet, effervescent Discontinued 70 MG PO Daily October 24, 2023 1:00am March 18, 2024 2:26pm 1 tablet 30 minutes before the first food, beverage or medicine of the day dissolved in 4 ounces of waterStart: 10-24-2023 End: 36-73-1780Kwotrkgembp 70 mg tablet, effervescent Discontinued 70 MG PO Daily October 24, 2023 12:00am 2023 1:26pm 1 tablet 30 minutes before the first food, beverage or medicine of the day dissolved in 4 ounces of waterB-12 - up to 1000 mcg (20 sources)Start: 69-11-2499P-12 - up to 1000 mcg Sep, 1000 mcgStart: 92-22-3888O-12 - up to 1000 mcg Aug, 1 mLStart: 64-48-3384E-12 - up to 1000 mcg Jul, 1000 mcgStart: 82-28-9920A-12 - up to 1000 mcg Jun, 1000 mcgStart: 21-27-2980X-12 - up to 1000 mcg May, 1000 mcgStart: 55-98-7250J-12 - up to 1000 mcg Apr, 1000 mcgStart: 91-55-2803V-12 - up to 1000 mcg Mar, 1000 mcgStart: 77-48-7637Ccqzi: 35-03-6977Ujqkr: 31-43-0129Q-12 - up to 1000 mcg Feb, 1000 mcgStart: 33-52-1901Amgmk: 19-89-7873L-12 - up to 1000 mcg Dec, 1000 mcgStart: 75-37-2440Ofrpz: 56-93-4724A-12 - up to 1000 mcg Nov, 1000 mcgStart: 94-06-2262Chvxv: 44-29-5162W-12 - up to 1000 mcg Oct, 1000 mcgStart: 83-07-2408Igxqq: 29-99-6270S-12 - up to 1000 mcg Sep, 1000 mcgcholecalciferol 0.025 mg oral tablet (20 sources)Vitamin DStart: 03-27-2023 End: 50-50-6987bbmo 1 tablet by mouth once dailyCholecalciferol (Vitamin D3) (Vitamin D3) 25 mcg (1,000 unit) Tablet Discontinued 1000 UNIT PO Daily March 27, 2023 12:00am October 24, 2023 10:54amCyanocobalamin (Vitamin B-12) (Vitamin B-12) 100 mcg/mL Solution (20 sources)Start: 03-27-2023 End: 95-62-0649Gbaoitxmufrtpu (Vitamin B-12) (Vitamin B-12) 100 mcg/mL Solution Discontinued 0 .ROUTE .COMPLEX March 26, 2023 11:00pm October 24, 2023 9:54am patient reports vitatmin b-12 shot once a month, unaware of dosageStart: 03-27-2023 End: 57-03-7533Ypyvvrwtjivccl (Vitamin B-12) (Vitamin B-12) 100 mcg/mL Solution Discontinued 0 .ROUTE .COMPLEX March 27, 2023 12:00am October 24, 2023 10:54am patient reports vitatmin b-12 shot once a month, unaware of dosageStart: 14-52-0991Clvicitlbenadu (Vitamin B-12) (Vitamin B-12) 100 mcg/mL Solution Active 0 .ROUTE .COMPLEX March 26, 2023 11:00pm patient reports vitatmin b-12 shot once a month, unaware of dosageStart: 12-23-6691Lsdqtsphztyzcl (Vitamin B- 12) (Vitamin B-12) 100 mcg/mL Solution Active 0 .ROUTE .COMPLEX March 27, 2023 12:00am patient reports vitatmin b-12 shot once a month, unaware of dosagefolic acid 1 mg oral tablet (20 sources)Start: 09-27-2022 End: 81-61-1238thau 1 tablet by mouth once dailyFolic Acid 1 mg tablet Discontinued 1 MG PO Daily January 23, 2023 12:00am January 29, 2024 3:40pmStart: 14-50-4374inwk 1 tablet by mouth once dailyfolic acid 0.4 mg Tab 0.4 mg = 1 tab(s), Oral, Daily, # 100 tab(s), Refills(s) 0 Start Date: 11/22/19 Status: Ordered Quantity: 100.0 Unit: tab(s) Repeat number: 1LORazepam 0.5 mg oral tablet (20 sources)BenzodiazepineStart: 10-24-2023 End: 97-92-4196rxwn 1 tablet by mouth every six hoursLorazepam 0.5 mg tablet Discontinued 0.5 MG PO Every 6 hours 60 30 1 January 01, 2024 9:55am March 18, 2024 2:26pm Generalized anxiety disorder Generalized anxiety disorderStart: 50-60-9096fwkf 0.5-1 tablets by mouth every six hours as needed for anxiety LORazepam 0.5 MG 1/2 - 1 tablet Orally every 6 hours as needed for anxiety for 30 days Aug,ctive Problems Active Problems Problem ClassificationProblemDateDocumented DateEpisodic/ChronicAbdominal hernia (20 sources)Left inguinal hernia ; Translations: [Unilateral inguinal hernia, without obstruction or gangrene, not specified as recurrent]Onset: 04-10-2023 15-78-1550GcwdrztfBnsdmdubs pain (19 sources)Left lower quadrant pain; Translations: [Left lower quadrant pain] Onset: 12-25-2022 Resolved: 376788-37-2960IthfviatQopbu and unspecified renal failure (20 sources)Acute injury of kidney; Translations: [Acute renal failure syndrome] Resolved: 183918-92-2651RbaxoglySlleoesj reactions (11 sources)Allergic contact dermatitis caused by chemical; Translations: [Allergic contact dermatitis due to other chemical products]EpisodicAnxiety disorders (20 sources)Generalized anxiety disorder; Translations: [Generalized anxiety disorder]ChronicBiliary tract disease (20 sources)Biliary dyskinesia; Translations: [Other specified diseases of gallbladder]54-74-3024GvppzxbyKzzhmibmf and vision defects (5 sources)Diplopia; Translations: [Diplopia]Onset: 73-82-5878RcbrjenjHurqtpmr (20 sources)Age-related nuclear cataract, left eye; Translations: [Presence of intraocular lens]Onset: 43-87-2103QgpmaabDahbzmu kidney disease (20 sources)Chronic kidney disease stage 3A ; Translations: [Stage 3a chronic kidney disease (CKD)]98-74-2296DjcvmgfKrmdsuavwd and other anemia (20 sources)Iron deficiency anemia; Translations: [Iron deficiency anemia, unspecified]Onset: 73-97-9557VqyhssxyMpfioesrnp and other anemia (20 sources)Pernicious anemia; Translations: [Vitamin B12 deficiency anemia due to intrinsic factor deficiency]54-85-5177TbunpusrYedzrlbwwl and other anemia (20 sources)Vitamin B12 deficiency anemia due to intrinsic factor deficiency; Translations: [Pernicious anemia]EpisodicDeficiency and other anemia (3 sources)Anemia, unspecified; Translations: [ANEMIA UNSPECIFIED]Onset: 20-05-1415ZurzmsfpGcwjfgzrry and other anemia (14 sources)Megaloblastic anemia due to poor nutrition; Translations: [Dietary folate deficiency anemia] Resolved: 501181-65-2055RbeejfwoNczxvlqohd and other anemia (13 sources)Nutritional anemia; Translations: [Nutritional anemia, unspecified] 37-07-2609VxamjhqcBqtfxrkgco and other anemia (20 sources)Iron deficiency anemia secondary to inadequate dietary iron intake; Translations: [Other iron deficiency anemias]EpisodicDeficiency and other anemia (20 sources)Anemia; Translations: [Anemia, unspecified]Onset: 93-37-7590Cebopxbj Deficiency and other anemia (6 sources)Iron deficiency anemia, unspecified; Translations: [IRON DEFICIENCY ANEMIA UNSPECIFIED]Onset: 03-67-0776NbhwfiejSbyijjyhpx and other anemia (1 source)Nutritional anemia, unspecified; Translations: [Nutritional anemia, unspecified]EpisodicDisorders of lipid metabolism (20 sources)Pure hypercholesterolemia; Translations: [Pure hypercholesterolemia, unspecified]Onset: 73-66-1303ZwfwytbMygrnlsjg hypertension (20 sources)Essential hypertension; Translations: [Essential (primary) hypertension]Onset: 72-25-0641WnzuehsNlrgwkrazmyhq symptoms and ill-defined conditions (3 sources)Urge incontinence of uogep24-15-1540TzctwjxNyryyqbwvbgxz symptoms and ill-defined conditions (20 sources)Nocturia; Translations: [Nocturia]43-29-6312PqiutzvaFnrx and other crystal arthropathies (20 sources)Gout; Translations: [Gout, unspecified]ChronicHyperplasia of prostate (20 sources)Lower urinary tract symptoms due to benign prostatic hypertrophy; Translations: [Benign prostatic hyperplasia with lower urinary tract symptoms] Onset: 26-13-0236EvzdqzaQfiuknouseoy with complications and secondary hypertension (20 sources)Chronic kidney disease due to hypertension; Translations: [Hypertensive chronic kidney disease withstage 1 through stage 4 chronic kidney disease, or unspecified chronic kidney disease]08-95-3036UgnkovySmpfdtj and fatigue (20 sources)Malaise; Translations: [Other malaise]Onset: 63-56-9771Nyyusodw Nephritis; nephrosis; renal sclerosis (3 sources)Atrophy of kidney; Translations: [Atrophy of kidney (terminal)]Onset: 38-43-0813ZhwslwjTqjpwqfvpwb chest pain (20 sources)Chest pain; Translations: [Other chest pain]EpisodicNutritional deficiencies (20 sources)Vitamin D deficiency; Translations: [Vitamin D deficiency, unspecified]64-02-1417WkkicgaQovqsfbhscxf (20 sources)Osteoporosis; Translations: [Other osteoporosis without current pathological fracture]ChronicOther aftercare (2 sources)Other long-term (current) drug therapy; Translations: [OTH LONG-TERM CURRENT DRUG THERAPY]Onset: 53-66-8261QtqyjoioFvtah diseases of kidney and ureters (1 source)Urinary tract obstruction; Translations: [Other obstructive and reflux uropathy]Onset: 56-15-1910OmrapqshNhmlb diseases of veins and lymphatics (20 sources)Venous insufficiency of leg; Translations: [Venous insufficiency (chronic) (peripheral)]62-21-4916IitutwveEjmfm diseases of veins and lymphatics (20 sources)Venous insufficiency (chronic) (peripheral); Translations: [Venous (peripheral) insufficiency, unspecified]17-23-0682HydnpbzyEuibf ear and sense organ disorders (20 sources)Sensorineural hearing loss; Translations: [Unspecified sensorineural hearing loss]63-60-2722TueugeqHuppp ear and sense organ disorders (2 sources)Unspecified sensorineural hearing loss; Translations: [Unspecified sensorineural hearing loss]ChronicOther ear and sense organ disorders (11 sources)Sensorineural hearing loss, bilateral; Translations: [Sensorineural hearing loss, bilateral]Onset: 21-91-3616XpaagwaFtnpb ear and sense organ disorders (20 sources)Bilateral tinnitus; Translations: [Tinnitus, bilateral]EpisodicOther ear and sense organ disorders (7 sources)Tinnitus; Translations: [Unspecified tinnitus]Onset: 09-06-2016 24-87-3328YqmcvdflEwuxejc on above:BilateralOther eye disorders (20 sources)Vitreous degeneration, bilateralChronicOther eye disorders (2 sources)Dry eyes; Translations: [Dry eyes]EpisodicOther eye disorders (2 sources)Ptosis of eyelid; Translations: [Ptosis of eyelid]EpisodicOther eye disorders (3 sources)Unspecified ptosis of bilateral eyelids; Translations: [Ptosis, bilateral]Onset: 34-54-4036XfsypdimFgzmk eye disorders (2 sources)Dry eye syndrome of bilateral lacrimal glands; Translations: [Dry eyes, bilateral]EpisodicOther gastrointestinal disorders (20 sources)Celiac disease; Translations: [Celiac disease]Onset: 12-02-2022 86-80-2287GvtttzkJatyb gastrointestinal disorders (20 sources)Celiac disease; Translations: [Celiac disease]Onset: 12-05-2022 ChronicOther gastrointestinal disorders (20 sources)Chronic idiopathic constipation; Translations: [Chronic idiopathic constipation]ChronicOther gastrointestinal disorders (2 sources)Chronic idiopathic constipationChronicOther gastrointestinal disorders (10 sources)Irritable bowel syndrome; Translations: [Irritable bowel syndrome without diarrhea]Onset: 69-91-0895GzzcjzpJtpko gastrointestinal disorders (1 source)Irritable bowel syndrome without diarrhea; Translations: [Irritable bowel syndrome without diarrhea]Onset: 26-70-6022IylzjiaRofic gastrointestinal disorders (20 sources)Acute constipation; Translations: [Constipation, unspecified] EpisodicOther gastrointestinal disorders (3 sources)Alteration in bowel pdutrhfdzvn64-46-5281EbbahehjGbpgg gastrointestinal disorders (20 sources)Smearing feces; Translations: [Fecal smearing]EpisodicOther gastrointestinal disorders (1 source)Fecal smearingEpisodicOther gastrointestinal disorders (20 sources)Constipation; Translations: [Constipation, unspecified]EpisodicOther gastrointestinal disorders (7 sources)Constipation, unspecified; Translations: [CONSTIPATION UNSPECIFIED] Onset: 85-99-7778WhprvbeeWcqkh gastrointestinal disorders (20 sources)Altered bowel function; Translations: [Change in bowel habit] EpisodicOther gastrointestinal disorders (20 sources)Flatulence, eructation and gas pain; Translations: [Abdominal distension (gaseous)]EpisodicOther gastrointestinal disorders (1 source)Abdominal distension (gaseous)EpisodicOther gastrointestinal disorders (1 source)Change in bowel habitEpisodicOther hereditary and degenerative nervous system conditions (8 sources)Impaired cognition; Translations: [Mild cognitive impairment, so stated]15-73-6217JvduuvdAlrgj hereditary and degenerative nervous system conditions (2 sources)Mild cognitive impairment, so stated; Translations: [Mild cognitive impairment, so stated]16-09-8423OyzzyqvSqcan injuries and conditions due to external causes (10 sources)History of fall; Translations: [History of falling]EpisodicOther injuries and conditions due to external causes (1 source)History of falling; Translations: [History of falling]EpisodicOther lower respiratory disease (20 sources)Lung field abnormal; Translations: [Other nonspecific abnormal finding of lung field]EpisodicOther lower respiratory disease (2 sources)Other nonspecific abnormal finding of lung field; Translations: [Other nonspecific abnormal findingof lung field]EpisodicOther nervous system disorders (20 sources)Acute postoperative pain; Translations: [Other acute postprocedural pain]48-89-0316BphcsiqkMrekpmg on above:Problem List clean-up per request of Phys. EHR CmteOther non-epithelial cancer of skin (6 sources)Squamous cell carcinoma of skin of left upper limb, including shoulder; Translations: [Squamous cell carcinoma of skin of upper limb, including shoulder]07-07-1462SvtglrbxKfbag nutritional; endocrine; and metabolic disorders (20 sources)Overweight; Translations: [Overweight]Onset: 9054QwxqbgnvKlmbc nutritional; endocrine; and metabolic disorders (2 sources)Abnormal weight loss; Translations: [ABNORMAL WEIGHT LOSS]Onset: 49-36-6412GszdybxyNqyjq screening for suspected conditions (not mental disorders or infectious disease) (18 sources)Encounter for screening for diseases of the blood and blood-forming organs and certain disorders involving the immune mechanism; Translations: [Encounter for screening for lipoid disorders]Onset: 65-36-1695WozjxjkoPcokq upper respiratory infections (11 sources)Acute maxillary sinusitis; Translations: [Acute maxillary sinusitis, unspecified]EpisodicRetinal detachments; defects; vascular occlusion; and retinopathy (20 sources)Venous retinal branch occlusion; Translations: [Tributary (branch) retinal vein occlusion, left eye, with macular edema]Onset: ChronicComment on above:left eyeScreening and history of mental health and substance abuse codes (1 source)Encounter for screening for depression; Translations: [Encounter for screening for depression]EpisodicUnclassified (3 sources)Body mass index -ntlazq58-95-4411Hqqltgbjczio (1 source)Bacterial infection, unspecified, in conditions classified elsewhere and of unspecified site; Translations: [Bacterial infection, unspecified, in conditions classified elsewhere and of unspecified site]Onset: 09-06-2016 Unclassified (1 source)Hypertrophy (benign) of prostate without urinary obstruction and other lower urinary tract symptoms[LUTS]; Translations: [Hypertrophy (benign) of prostate without urinary obstruction and other lowerurinary tract symptoms [LUTS]]Onset: 70-10-7474Qjtkwxwdgrrh (1 source)Encounter for preprocedural laboratory examination; Translations: [Encounter for preprocedural laboratory examination]Onset: 63-02-1400Qvyhgcv tract infections (11 sources)Urinary tract infectious disease; Translations: [Urinary tract infection, site not specified]Episodic Past or Other Problems Problem ClassificationProblemDateDocumented DateEpisodic/ChronicBacterial infection; unspecified site (3 sources)Bacterial infectious disease; Translations: [Bacterial infection, unspecified, in conditions classified elsewhere and of unspecified site]Onset: 61-07-4495DflrdddoRskuidv kidney disease (4 sources)Chronic kidney disease; Translations: [CHRONIC KIDNEY DISEASE STAGE 3A]Onset: 31-15-4923Wrgtdvco; including migraine (10 sources)Headache; Translations: [Headache, unspecified] Resolved: 66-53-9335CklwetxoWhmarlhj; including migraine (1 source)Headache; including migraine; Translations: [Headache, unspecified] Resolved: 20-45-6633Mftqfitwhka deficiencies (11 sources)Vitamin B deficiency; Translations: [Deficiency of other specified B group vitamins] Resolved: 91-13-5384HaasoiwuBsjxt circulatory disease (10 sources)Elevated blood-pressure reading without diagnosis of hypertension; Translations: [Elevated blood-pressure reading, without diagnosis of hypertension]Onset: 23-30-1255OczzococBuazr circulatory disease (1 source)Elevated blood-pressure reading, without diagnosis of hypertension; Translations: [Elevated blood-pressure reading, without diagnosis of hypertension]Onset: 64-86-4113JvdcsmqvUtzdo gastrointestinal disorders (15 sources)Diarrhea; Translations: [Diarrhea]Onset: 12-06-2013 Resolved: 28-36-3776DoyzgtkoPkcnr lower respiratory disease (10 sources)Solitary nodule of lung; Translations: [Solitary pulmonary nodule] Resolved: 62-34-8842VnjpfrroGagol lower respiratory disease (1 source)Solitary pulmonary nodule; Translations: [Solitary pulmonary nodule] Resolved: 05-80-3078CqzvyevwVvyxb nutritional; endocrine; and metabolic disorders (11 sources)Abnormal weight loss; Translations: [Abnormal weight loss]Onset: 57-10-4095JrxtnlwaBtuip nutritional; endocrine; and metabolic disorders (1 source)Overweight; Translations: [Overweight]Onset: 99-52-2403FhldbvogHojti upper respiratory disease (11 sources)Nasal congestion; Translations: [Nasal congestion]Onset: 09-19-2016 EpisodicOtitis media and related conditions (11 sources)Eustachian tube salpingitis; Translations: [Unspecified Eustachian salpingitis, right ear]Onset: 72-47-5647FyrvfmjmJyukdyfpj (except that caused by tuberculosis or sexually transmitted disease) (11 sources)Pneumonia; Translations: [Pneumonia, unspecified organism]Onset: 00-09-5470OlycufdmOajmqggkelli (20 sources)BRVO (chief complaint)Onset: 07-12-2020 Resolved: 23-44-6753Wqlkmbjaioxm (2 sources)BRVO with ME (chief complaint)Onset: 88-00-5871Bksttcuewdpd (2 sources)retinal vein occlusion (chief complaint)Onset: 95-30-8953Tooqwbfilywp (2 sources)branch retinal vein occlusion (chief complaint)Onset: 10-21-2023 Unclassified (2 sources)discomfort like a toothache (chief complaint)Onset: 08-21-2023 Unclassified (4 sources)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 (chief complaint) reports gradual vision improvement (chief complaint)Onset: 84-35-9478Wumjtxcwtrvc (4 sources)BRVO (chief complaint) decreased vision (chief complaint)Onset: 01-06-2019 Resolved: 69-24-1415Sbouaeuyxcjd (2 sources)BRVO (chief complaint) no vision changes (chief complaint)Onset: 08-42-1528Swsevkpyydyv (2 sources)2 mo fu due to BRVO w/ mac edema (chief complaint) Stable vision (chief complaint)Onset: 35-51-3617Seufapcrinem (6 sources)BRVO (chief complaint) stable vision (chief complaint)Onset: 07-07-2019 Resolved: 17-78-0238Lthsfpocrqpd (2 sources)BRVO (chief complaint) increased (chief complaint)Onset: 04-14-2019 Unclassified (2 sources)BRVO with edema (chief complaint) increase in vision (chief complaint)Onset: 94-39-8885Wyhmynxdyqka (4 sources)vein occlusion (chief complaint) denies vision changes (chief complaint)Onset: 01-14-2018 Resolved: 52-99-9539Hfqidqedghen (2 sources)vein occlusion (chief complaint) decrease in vision (chief complaint) Onset: 90-61-1274Pmrkcnqgvssr (2 sources)vein occlusion (chief complaint) burry vision (chief complaint) denies vision change (chief complaint)Onset: 53-03-0676Lxmyqjunzyge (2 sources)vein occlusion (chief complaint) stable vision (chief complaint) Onset: 01-67-2730Xaowjccizxap (2 sources)vein occlusion (chief complaint) blurry vision (chief complaint) denies vision changes (chief complaint)Onset: 10-82-2675Ebzjrofpkirc (2 sources)BRVO (chief complaint) denies vision change (chief complaint) new medication (chief complaint)Onset: 71-17-5846Zogqlastvfuj (2 sources)BRVO (chief complaint) blurry vision (chief complaint) no visual changes (chief complaint)Onset: 39-46-6618Cwnbhhxwjhqz (2 sources)BRVO (chief complaint) reports stable vision (chief complaint)Onset: 90-26-8158Dufasmfefjsk (2 sources)vein occlusion (chief complaint) slight decrease in vision (chief complaint) distorted vision (chief complaint)Onset: 10-90-1541Onxojrsblaud (2 sources)vision changes (chief complaint) blurry vision (chief complaint) reports no visual changes (chief complaint)Onset: 99-15-0523Cmzlswyxuwwx (2 sources)vein occlusion (chief complaint) small black floater, with no vision changes (chief complaint) denies any vision changes (chief complaint)Onset: 91-96-6685Jyznvjgzxyka (2 sources)BRVO with macular edema (chief complaint) blurry vision (chief complaint) stable vision (chief complaint)Onset: 53-14-9257Forupugeqfgg (2 sources)BRVO with macular edema (chief complaint) reports no visual changes (chief complaint)Onset: 62-66-2676Fcvbpjsmxgdy (2 sources)BRVO with macular edema (chief complaint) red dots (chief complaint) Onset: 61-43-2286Bzzcrwxiqeaw (2 sources)referred by Dr. Zayas for a retinal occlusion (chief complaint) flashes (chief complaint) blurriness in vision (chief complaint)Onset: 17-77-3837Fborn infection (11 sources)Disease caused by 2019-nCoV; Translations: [COVID-19] Resolved: 02-18-2022 Results Test NameValueInterpretationReference RangeFacilityLaboratory - Chemistry and Chemistry - challengeon 94-91-0393Xoxxnfmpz Ql (U)[facility]Glucose (U) [Mass/Vol][facility] Ketones Ql (U)[facility] HospitalpH (U)5 [pH][facility]ronpecific gravity (U) [Rel density]1.000[address] HospitalUrobilinogen (U) [Mass/Vol]0.2 mg/dLWilson [address] HospitalLaboratory - Specimen informationon 98-81-5187Loujtjvdem (U)clearWilson Street HospitalColor (U)yellowWilson Street Hospital Laboratory - Urinalysison 38-13-0163Kflagoijm esterase Test strip Ql (U)Negative [facility] HospitalNitrite Ql (U)NegativeWilson Street HospitalProtein Ql (U)NegativeWilson Street HospitalNo Panel Informationon 76-82-2615Ppnxj Occult BloodNegativeWilson Street HospitalAmbulatory Visit Summaryon 06-08-7123Xvfaufobmf Visit SummaryAmbulatory Visit Summary MARCELINO ESCOBAR :1950 Visit Date:12/27/2024 Ambulatory Visit Instructions Your Diagnosis BPH with urinary obstruction ED (erectile dysfunction) Renal atrophy Your Care Team Attending Physician - Graham DORAN MD Primary Care Physician - ADELINE GUZMAN ANIRUDH This Is Your Medications List Contact prescribing [...] Performed Laparoscopic cholecystostomy (09/08/2013), Colonoscopy (09/08/2011), EGD (esophagogastroduodenoscopy) gastric outlet reduction (09/08/2011), Repair of left inguinal hernia (09/08/1974), Blepharoplasty, History of knee surgery, vasectomy. Discharge Vitals Temperature (Temporal Artery) 37 ???C Heart Rate (Peripheral) 71 Respiratory Rate 17 Blood Pressure 135/83 Height 180 cm Height 71 in Weight 86.5 kg Weight 190.7 lb BMI 26.7 What to do next You Need to Schedule the Following Appointments Follow Up with ANDREEA DIXON, BILLY Peralta When: Where: [facility] [address] , [place] [address] [phone] Medications What How Much When Instructions Unchanged amlodipine (amLODIPine 5 mg Tab) Contact prescribing physician if questions or concerns Unchanged aspirin (aspirin 81 mg Oral EC Tab) By Mouth Every day Contact prescribing physician if questions or concerns Unchanged benazepril (benazepril 5 mg oral tablet) By Mouth Every day Contact prescribing physicianif questions or concerns Unchanged cyanocobalamin (Vitamin B12) [...] is also an infection (more content not included)...[facility] HospitalUrology Office/Clinic Noteon 73-44-0387Hymjjjt Office/Clinic NoteUrology Office/Clinic Note Chief Complaint 1 year with [...] and history for this patient from Dr. Doran. I have reviewed and verified the staff [...] Taking Tamsulosin 0.4mg qd per PCP. Good stream.Feels he empties. Shares he delays urination and will have leakage at times. Recommended timed voids. PSA remains stable. Pt wishes to continue to monitor level. -Cont Tamsulosin as above -Timed voids q2-3hrs -F/u in1 yr w/ PSA 2. ED (erectile dysfunction) (N52.9: Male erectile dysfunction, unspecified) Shares interest in trying medications. Discussed risks/benefits/possible SEs. Pt not taking any nitro products. -Start Tadalafil 20mg prn. Recommended GoodRx (coupon provided). Rx sent to [facility]. 3. Renal atrophy (N26.1: Atrophy of kidney (terminal)) ROBERT 12/16/23 [facility] (ordered by Dr. Lr due to CKD) - bilateral renal cortical atrophy with increasedcortical echotexture suggests medical renal disease. 12/10/23 - BUN 29. Cr 2.02. eGFR 32. [1] Now follows with nephrology q6mos. Follow-up With When Contact Information ANDREEA DIXON, Graham Ruby, URL [facility] [address] , [place] [address] [phone] Additional Instructions: 1 yr w/ PSA Patient Education Benign Prostatic Hyperplasia I, Anita Magana, personally scribed for Dr. Doran on 12/27/2024 10:45:20. . Documentation recorded by the scribe, Anita Magana, accurately reflects the services(s) I performed and decisions made by me. Authenticated by Dr. Doran on 12/27/2024 10:46:06. Problem List/Past Medical History [...] History Laparoscopic cholecystostomy (09/08/2013), Colonoscopy (09/08/2011), EGD (esophagogastroduodenoscopy) gastric outlet reduction (09/08/2011), Repair of left [...] mg/dl) (12/27/24 09:50:00) Specif (more content not included)...[facility] HospitalComment on above:Result Comment: Electronically Signed By: ANDREEA DIXON, Graham Chase\Date and Time Signed: 12/27/24 10:46 EDT\.br\Electronically Co-Signed By: Anita Magana\.br\Date and Time Co-Signed: 12/27/24 10:45 EDTCHEMISTRYOrdered By: SYSTEM SYSTEM on 18-71-7452Aekxoeyf specific Ag [Mass/Vol]1.9 ng/mLNormal0.1 - 3.5 ng/mLRemisol ChemComment on above:Interpretive Data: The concentration of PSA determined by different manufacturers can vary due to differences in assay methods and reagent specificity. Values obtained from different assay methods cannot be used interchangeably. The methodology used for this result was chemiluminescence using [employer]'s Access Hybritech PSA reagent.PSA Total on 04-92-7107Jvelayle specific Ag [Mass/Vol]1.9 ng/mLNormal0.1-3.5[facility] CampusComment on above:Result Comment: The concentration of PSA determined by different manufacturers can vary due to differences in assay methods and reagent specificity. Values obtained from different assay methods cannot be used interchangeably. The methodology used for this result was chemiluminescence using [employer]'s Access Hybritech PSA reagent.Performed By: #### [id number] #### [facility] [address] [place], [place] [address]Xbidyiikjfa distribution width Auto (RBC) [Ratio]on 12-06-2024 Erythrocyte distribution width (RBC) [Ratio]Erythrocyte distribution width [Ratio] by Automated count11.0-15.0[address] HospitalEstimated glomerular filtration rate (GFR) non- Americanon 27-86-4740GVH/1.73 sq M.predicted among non-blacks MDRD (S/P/Bld) [Vol rate/Area]Estimated glomerular filtration rate (GFR) non- AmericanLow>=60 mL/min/1.73m [address] [place], [place] [address]Hematocrit Auto (Bld) [Volume fraction]on 12-06-2024 Hematocrit (Bld) [Volume fraction]Hematocrit [Volume Fraction] of Blood by Automated count42.0-54.0[address] HospitalHemoglobin [Mass/volume] in Bloodon 03-94-4648Hfeqxhvyld (Bld) [Mass/Vol]Hemoglobin [Mass/volume] in Blood14.0-18.0[address] HospitalLaboratory - Chemistry and Chemistry - challengeon 14-79-9110Mfbzwfx [Mass/Vol]3.8 g/dL 3.4-5.0[address] HospitalCalcium [Mass/Vol]8.8 mg/dL8.5-10.[address] HospitalChloride [Moles/Vol]105 mmol/I69-665HstmxlnlsWilson [address] HospitalCO2 [Moles/Vol]30.0 mmol/L21.0-32.0[address] HospitalCreatinine [Mass/Vol]1.62 mg/dLHigh0.70-1.30[address] HospitalGFR/1.73 sq M.predicted MDRD (S/P/Bld) [Vol rate/Area]51 mL/min/{1.73_m2}Low>=60 mL/min/1.73m 2FGrand Lake Joint Township District Memorial HospitalGlucose [Mass/Vol]86 mg/uC80-118ZpodnfznjWilson [address] HospitalMagnesium [Mass/Vol]2.0 mg/dL1.8-2.4FGrand Lake Joint Township District Memorial HospitalPotassium [Moles/Vol]5.0 mmol/L 3.5-5.1FUniversity Hospitals Conneaut Medical Centerodium [Moles/Vol]141 mmol/Y293-[address] HospitalUrate [Mass/Vol]6.7 mg/dL3.5-7.2FGrand Lake Joint Township District Memorial HospitalUrea nitrogen [Mass/Vol]25.0 mg/dLHigh7.0-18.0[address] HospitalUrea nitrogen/Creatinine [Mass ratio]15.4 mg/mgWilson [address] HospitalLaboratory - Urinalysison 74-67-1264Tssczfo (U) [Mass/Vol]24.3 mg/dLHigh<=11.9[address] HospitalLeukocytes [#/volume] corrected for nucleated erythrocytes in Blood by Automated counon 98-07-5176XHE corrected for nucl RBC Auto (Bld) [#/Vol]Leukocytes [#/volume] corrected for nucleated erythrocytes in Blood by Automated coun4.0-11.0[address] HospitalMCH Auto (RBC) [Entitic mass]on 76-84-5716XGC (RBC) [Entitic mass]MCH [Entitic mass] by Automated count25.9-34.0[address] HospitalMCHC Auto (RBC) [Mass/Vol]on 31-83-7029VRZB (RBC) [Mass/Vol]MCHC [Mass/volume] by Automated count29.9-35.2FGrand Lake Joint Township District Memorial HospitalMCV Auto (RBC) [Entitic vol]on 84-96-4094WCR (RBC) [Entitic vol]MCV [Entitic volume] by Automated zjzehGbia26.0-94.0[address] HospitalNo Panel Informationon [id number]-Rbdcqmu Vitamin D Total37.1 ng/mLWilson Street HospitalComment on above:<20 ng/mL Vit D zrfhzowvd24-<30 ng/mL Vit D bsfpsglkscaf17-275 ng/mL Vit D sufficient>100 ng/mL Potential Toxicity Parathyroid Hormone (Intact)47 pg/bL45-65LiorekyiaWilson [address] Hospital Comment on above:Performed at: [facility] [address] [id number] Director: Vinny Alexander PhD, Phone: [phone] Level 2.6 mg/dL2.6-4.7FGrand Lake Joint Township District Memorial HospitalUrine Random Pjqaqxerfa26.62 mg/dL20.00-300.00[address] HospitalPlatelet mean volume Auto (Bld) [Entitic vol]on 99-35-1524Yvljdric mean volume (Bld) [Entitic vol]Platelet mean volume [Entitic volume] in Blood by Automated count9.5-13.5FGrand Lake Joint Township District Memorial HospitalPlatelets Auto (Bld) [#/Vol]on 67-86-8334Bleapvyqh (Bld) [#/Vol]Platelets [#/volume] in Blood by Automated -395EkxmrspkhWilson [address] HospitalRBC Auto (Bld) [#/Vol]on 82-98-4628VSH (Bld) [#/Vol]Erythrocytes [#/volume] in Blood by Automated countLow4.70-6.10[facility] Akronerum or plasma anion gap determinationon 81-65-2434Hqwsk gap [Moles/Vol] Serum or plasma anion gap determinationWilson Street HospitalUrine protein/creatinine ratioon 41-08-9551Yegirjq/Creatinine (U) [Ratio]Urine protein/creatinine ratioWilson Street HospitalBasophils Auto (Bld) [#/Vol]on 84-53-8943Dmbmkmymz (Bld) [#/Vol]Automated basophil count0.0-0.[address] HospitalBasophils/100 WBC Auto (Bld)on 10-14-2024 Basophils/100 WBC (Bld)Automated basophil %0.2-2.0[address] HospitalEosinophils/100 WBC Auto (Bld)on 46-48-7233Hqjkufmoiwd/100 WBC (Bld) Automated eosinophil %0.9-7.0[address] HospitalErythrocyte distribution width Auto (RBC) [Ratio]on 59-50-2075Natkovfuble distribution width (RBC) [Ratio]Erythrocyte distribution width [Ratio] by Automated count11.0-15.[address] HospitalHematocrit Auto (Bld) [Volume fraction]on 30-31-3536Upzkaaitcx (Bld) [Volume fraction]Hematocrit [Volume Fraction] of Blood by Automated count42.0-54.0[address] HospitalHemoglobin [Mass/volume] in Bloodon 91-51-6459Yyqkzemuza (Bld) [Mass/Vol]Hemoglobin [Mass/volume] in WlhfaNtb70.0-18.0[address] HospitalLaboratory - Hematology and Cell countson 88-26-2998Peobjnaz granulocytes/100 WBC (Bld)0.5 % 0.0-0.5FGrand Lake Joint Township District Memorial HospitalLeukocytes [#/volume] corrected for nucleated erythrocytes in Blood by Automated counon 93-19-1543YGW corrected for nucl RBC Auto (Bld) [#/Vol]Leukocytes [#/volume] corrected for nucleated erythrocytes in Blood by Automated coun4.0-11.0[facility] Lymphocytes Auto (Bld) [#/Vol]on 35-01-9222Hszablkzduc (Bld) [#/Vol]Lymphocytes [#/volume] in Blood by Automated count1.2-3.8[facility] Lymphocytes/100 WBC Auto (Bld)on 95-16-3275Rpduxwwhvbn/100 WBC (Bld) Lymphocytes/100 leukocytes in Blood by Automated count20.5-60.0[facility] HospitalH Auto (RBC) [Entitic mass]on 59-82-5535TNZ (RBC) [Entitic mass]MCH [Entitic mass] by Automated count25.9-34.0[address] HospitalMCHC Auto (RBC) [Mass/Vol]on 13-66-3193LDPC (RBC) [Mass/Vol]MCHC [Mass/volume] by Automated count29.9-35.2FGrand Lake Joint Township District Memorial HospitalMCV Auto (RBC) [Entitic vol]on 97-47-9297VYZ (RBC) [Entitic vol]MCV [Entitic volume] by Automated uektbUaxs66.0-94.0[address] HospitalMonocytes Auto (Bld) [#/Vol]on 34-04-6251Aahkscdvi (Bld) [#/Vol]Automated blood monocyte count High0.3-0.8[address] HospitalMonocytes/100 WBC Auto (Bld)on 59-59-0533Gvderszgh/100 WBC (Bld)Automated monocyte %High1.7-12.0[address] HospitalNeutrophils Auto (Bld) [#/Vol]on 74-11-4313Wetmqnxxobp (Bld) [#/Vol]Neutrophils [#/volume] in Blood by Automated count1.4-6.5FGrand Lake Joint Township District Memorial HospitalNeutrophils/100 WBC Auto (Bld)on 10-14-2024 Neutrophils/100 WBC (Bld)Automated neutrophil %43.0-75.0[address] HospitalNo Panel Informationon 97-18-1198Ysqutdblger # (Auto)0.2 10 3/uL 0.0-0.7FGrand Lake Joint Township District Memorial HospitalImmature Granulocyte # (Auto)0.03 10 3/uL0.00-0.03[address] HospitalPlatelet mean volume Auto (Bld) [Entitic vol]on 47-44-9697Lngrwvje mean volume (Bld) [Entitic vol]Platelet mean volume [Entitic volume] in Blood by Automated count9.5-13.5FGrand Lake Joint Township District Memorial HospitalPlatelets Auto (Bld) [#/Vol]on 78-47-1992Ifxfgzpkz (Bld) [#/Vol] Platelets [#/volume] in Blood by Automated amugd089-051OobmequweWilson [address] HospitalRBC Auto (Bld) [#/Vol]on 06-96-8108VBR (Bld) [#/Vol]Erythrocytes [#/volume] in Blood by Automated countLow4.70-6.10[address] HospitalErythrocyte distribution width Auto (RBC) [Ratio]on 35-94-1872Cteiakrfxat distribution width (RBC) [Ratio]12.6 %11.0-15.0[facility] Erythrocyte distribution width (RBC) [Ratio]Erythrocyte distribution width [Ratio] by Automated count11.0-15.0[address] HospitalEstimated glomerular filtration rate (GFR) non- Americanon 99-74-2204LOU/1.73 sq M.predicted among non-blacks MDRD (S/P/Bld) [Vol rate/Area]40 mL/min/{1.73_m2} Low>=60 mL/min/1.73m 2FGrand Lake Joint Township District Memorial HospitalGFR/1.73 sq M.predicted among non-blacks MDRD (S/P/Bld) [Vol rate/Area]Estimated glomerular filtration rate (GFR) non- AmericanLow>=60 mL/min/1.73m 2FGrand Lake Joint Township District Memorial HospitalHematocrit Auto (Bld) [Volume fraction]on 60-07-1084Rlwknonqzh (Bld) [Volume fraction]45.1 %42.0-54.0[facility] [address] HospitalHematocrit (Bld) [Volume fraction]Hematocrit [Volume Fraction] of Blood by Automated count 42.0-54.0[address] HospitalHemoglobin [Mass/volume] in Bloodon 86-87-7698Yuvehqyncp (Bld) [Mass/Vol]14.6 g/dL14.0-18.0[address] HospitalHemoglobin (Bld) [Mass/Vol]Hemoglobin [Mass/volume] in Blood 14.0-18.0[address] HospitalIron binding capacity [Mass/volume] in Serum or Plasmaon 28-14-9393Uaoz binding capacity [Mass/Vol]317.0 ug/dL 250.0-450.0[address] HospitalIron binding capacity [Mass/Vol]Iron binding capacity [Mass/volume] in Serum or Ntlbmo407.0-450.0[address] HospitalIron saturation [Mass Fraction] in Serum or Plasmaon 06-22-2024 Iron saturation [Mass fraction]30.[address] HospitalIron saturation [Mass fraction]Iron saturation [Mass Fraction] in Serum or Plasma [facility] HospitalLaboratory - Chemistry and Chemistry - challengeon 99-99-5799Qifmbtm [Mass/Vol]3.9 g/dL3.4-5.0[address] HospitalCalcium [Mass/Vol]9.2 mg/dL8.5-10.1FGrand Lake Joint Township District Memorial HospitalChloride [Moles/Vol]105 mmol/T77-815HsbpjzamaWilson [address] HospitalCO2 [Moles/Vol]28.9 mmol/L21.0-32.0[address] HospitalCreatinine [Mass/Vol]1.67 mg/dLHigh0.70-1.30[address] HospitalFerritin [Mass/Vol]53.0 ng/mL26.0-388.0[address] HospitalGFR/1.73 sq M.predicted MDRD (S/P/Bld) [Vol rate/Area]49 mL/min/{1.73_m2}Low>=60 mL/min/1.73m 2FGrand Lake Joint Township District Memorial HospitalGlucose [Mass/Vol]121 mg/dLHigh 74-106[address] HospitalIron [Mass/Vol]96.0 ug/dL65.0-175.[address] HospitalMagnesium [Mass/Vol]2.2 mg/dL1.8-2.4FGrand Lake Joint Township District Memorial HospitalPotassium [Moles/Vol]5.0 mmol/L3.5-5.1FUniversity Hospitals Conneaut Medical Centerodium [Moles/Vol]141 mmol/C398-395GqtoefneeWilson [address] HospitalUrate [Mass/Vol]6.9 mg/dL3.5-7.2FGrand Lake Joint Township District Memorial HospitalUrea nitrogen [Mass/Vol]26.0 mg/dLHigh7.0-18.0[address] HospitalUrea nitrogen/Creatinine [Mass ratio]15.6 mg/mgWilson [facility] Bilirubin Ql (U)NegativeNEGUpper Valley Medical CenterGlucose (U) [Mass/Vol]NegativeNEGATIVEWilson Street HospitalKetones Ql (U) NegativeNEGUpper Valley Medical CenterpH (U)6.0 [pH]5.0-9.0[facility] - Akronpecific gravity (U) [Rel density]1.0151.005-1.[address] HospitalUrobilinogen Qn (U)0.2 {Aimee'U}/dL0.2-1.[address] HospitalLaboratory - Specimen informationon 06-22-2024 Appearance (U)CLEARCLEARFGrand Lake Joint Township District Memorial HospitalColor (U)LT. YELLOW YELLOWWilson Street HospitalLaboratory - Urinalysison 06-22-2024 Leukocyte esterase Test strip Ql (U)NegativeNEGUpper Valley Medical CenterMucus Ql (Urine sed)NONE SEENNONE SEENWilson Street Hospital Nitrite Ql (U)NegativeNEGUpper Valley Medical CenterProtein (U) [Mass/Vol]21.1 mg/dLHigh<=11.9[address] HospitalProtein Ql (U) NegativeNEG/TRACEWilson Street HospitalLeukocytes [#/volume] corrected for nucleated erythrocytes in Blood by Automated counon 62-92-4672EQA corrected for nucl RBC Auto (Bld) [#/Vol]5.1 10 3/uL4.0-11.0[address] HospitalWBC corrected for nucl RBC Auto (Bld) [#/Vol]Leukocytes [#/volume] corrected for nucleated erythrocytes in Blood by Automated coun4.0-11.[address] HospitalMC Auto (RBC) [Entitic mass]on 73-00-3104PWI (RBC) [Entitic mass]31.2 pg25.9-34.0[facility] (RBC) [Entitic mass]MCH [Entitic mass] by Automated count25.9-34.0Wilson [facility] HospitalMC Auto (RBC) [Mass/Vol]on 97-01-9344BBSG (RBC) [Mass/Vol]32.4 g/dL29.9-35.2FGrand Lake Joint Township District Memorial HospitalMCHC (RBC) [Mass/Vol]MCHC [Mass/volume] by Automated count29.9-35.2FGrand Lake Joint Township District Memorial HospitalMCV Auto (RBC) [Entitic vol]on 81-79-0305OZT (RBC) [Entitic vol]96.4 wLAjsa24.0-94.0 [facility] HospitalV (RBC) [Entitic vol]MCV [Entitic volume] by Automated twefzOomo11.0-94.0[address] HospitalNo Panel Informationon 26-85-8620Shxqhxpwxoo Hormone (Intact)41 pg/fH68-48KkuagmtphWilson Street HospitalComment on above:Performed at: [facility] [address] [id number] Director: Vinny Alexander PhD, Phone: [phone] Level2.5 mg/dLLow2.6-4.7FGrand Lake Joint Township District Memorial Hospital Urine BacteriaTRACE #/HPFAbnormalNONE SEENWilson Street HospitalUrine Occult BloodNegativeNEGATIVEWilson Street HospitalUrine Other Casts NONE SEEN #/LPFNONE [facility] CenterUrine Other Crystals None Seen #/HPFNone [facility] CenterUrine Random Creatinine 104.02 mg/dL20.00-300.00[address] HospitalUrine RBCNONE SEEN #/HPF0-2FGrand Lake Joint Township District Memorial HospitalUrine Squamous Epithelial CellsRARE #/LPFNONE/RAREWilson Street HospitalUrine WBCNONE SEEN #/HPFNONE SEEN [address] HospitalPlatelet mean volume Auto (Bld) [Entitic vol]on 56-24-8597Tayxkmjh mean volume (Bld) [Entitic vol]9.8 fL9.5-13.5FGrand Lake Joint Township District Memorial HospitalPlatelet mean volume (Bld) [Entitic vol]Platelet mean volume [Entitic volume] in Blood by Automated count9.5-13.5FGrand Lake Joint Township District Memorial HospitalPlatelets Auto (Bld) [#/Vol]on 69-99-9544Cdivnwpkp (Bld) [#/Vol] 234 10 3/nA409-202ByarqtjyyWilson [address] HospitalPlatelets (Bld) [#/Vol] Platelets [#/volume] in Blood by Automated -025MhidlhaaiWilson [address] HospitalRBC Auto (Bld) [#/Vol]on 88-00-2918DJI (Bld) [#/Vol]4.68 10 6/uL Low4.70-6.10[address] HospitalRBC (Bld) [#/Vol]Erythrocytes [#/volume] in Blood by Automated countLow4.70-6.10[facility] Akronerum or plasma anion gap determinationon 78-91-0717Tezzl gap [Moles/Vol] 12.1 mmol/LFGrand Lake Joint Township District Memorial HospitalAnion gap [Moles/Vol]Serum or plasma anion gap determinationWilson Street HospitalUrine protein/creatinine ratioon 21-17-9400Wuqxnbr/Creatinine (U) [Ratio]0.20[address] HospitalProtein/Creatinine (U) [Ratio]Urine protein/creatinine ratioWilson Street HospitalErythrocyte distribution width Auto (RBC) [Ratio]on 65-77-5457Pwyovdavspq distribution width (RBC) [Ratio]12.8 %11.0-15.[address] HospitalEstimated glomerular filtration rate (GFR) non- Americanon 85-77-6867XRD/1.73 sq M.predicted among non-blacks MDRD (S/P/Bld) [Vol rate/Area]36 mL/min/{1.73_m2}Low>=60[address] HospitalHematocrit Auto (Bld) [Volume fraction]on 26-89-1781Ncixsgyhty (Bld) [Volume fraction]42.1 %42.0-54.0[address] HospitalHemoglobin [Mass/volume] in Bloodon 37-40-9184Vswgexkzyp (Bld) [Mass/Vol]13.7 g/dLLow 14.0-18.0[address] HospitalLaboratory - Chemistry and Chemistry - challengeon 75-87-7417Ewwzlfp [Mass/Vol]3.8 g/dL3.4-5.0[address] HospitalCalcium [Mass/Vol]8.8 mg/dL8.5-10.1FGrand Lake Joint Township District Memorial HospitalChloride [Moles/Vol]105 mmol/C54-480CnhqhrzygWilson [address] HospitalCO2 [Moles/Vol]25.8 mmol/L21.0-32.0[address] HospitalCreatinine [Mass/Vol]1.83 mg/dLHigh0.70-1.30[address] HospitalGFR/1.73 sq M.predicted MDRD (S/P/Bld) [Vol rate/Area]44 mL/min/{1.73_m2}Low>=60[address] HospitalGlucose [Mass/Vol]108 mg/nFHjbx71-159FphbnwpugWilson Street HospitalMagnesium [Mass/Vol]1.9 mg/dL1.8-2.4FGrand Lake Joint Township District Memorial HospitalPotassium [Moles/Vol]4.8 mmol/L3.5-5.1FGrand Lake Joint Township District Memorial Hospital Sodium [Moles/Vol]140 mmol/A552-812BwzhlndatWilson [address] HospitalUrate [Mass/Vol]7.9 mg/dLHigh3.5-7.2FGrand Lake Joint Township District Memorial HospitalUrea nitrogen [Mass/Vol]30.0 mg/dLHigh7.0-18.0[address] HospitalUrea nitrogen/Creatinine [Mass ratio]16.4 mg/mgWilson [facility] Hospital Bilirubin Ql (U)NegativeNEGATIVEWilson Street HospitalGlucose (U) [Mass/Vol]NegativeNEGATIVEWilson Street HospitalKetones Ql (U) NegativeNEGUpper Valley Medical CenterpH (U)6.0 [pH]5.0-9.0[facility] Akronpecific gravity (U) [Rel density]1.0151.005-1.[address] HospitalUrobilinogen Qn (U)0.2 {Aimee'U}/dL0.2-1.[address] HospitalLaboratory - Specimen informationon 03-19-2024 Appearance (U)CLEARCLEARFGrand Lake Joint Township District Memorial HospitalColor (U)YELLOWYELLOW [address] HospitalLaboratory - Urinalysison 87-38-5141Guffmqywl esterase Test strip Ql (U)NegativeNEGATIVEWilson Street HospitalMucus Ql (Urine sed)NONE SEENNONE SEENWilson Street HospitalNitrite Ql (U) NegativeNEGATIVEWilson Street HospitalProtein (U) [Mass/Vol]20.0 mg/dLHigh<=11.9[address] HospitalProtein Ql (U)NegativeNEG/TRACE [address] HospitalLeukocytes [#/volume] corrected for nucleated erythrocytes in Blood by Automated counon 52-91-2544ZPE corrected for nucl RBC Auto (Bld) [#/Vol]5.0 10 3/uL4.0-11.0[facility] HospitalH Auto (RBC) [Entitic mass]on 20-55-5476JXJ (RBC) [Entitic mass]30.9 pg25.9-34.[address] HospitalMCHC Auto (RBC) [Mass/Vol]on 38-67-4192PLBW (RBC) [Mass/Vol]32.5 g/dL29.9-35.2FACMC Healthcare System GlenbeighV Auto (RBC) [Entitic vol]on 61-19-8701PWR (RBC) [Entitic vol]95.0 [address]MSzwc70.0-94.[address] HospitalNo Panel Informationon 057973-Svxccte Vitamin D Total52.4 ng/mLWilson Street HospitalComment on above:<20 ng/mL Vit D puaqssrzg30-<30 ng/mL Vit D frnmeyzikepc26-691 ng/mL Vit D sufficient>100 ng/mL Potential ToxicityParathyroid Hormone (Intact)41 pg/mL15-[address] HospitalComment on above:Performed at: - [facility] [address] [id number] Director: Vinny Alexander PhD, Phone: [phone] Level3.0 mg/dL2.6-4.7FGrand Lake Joint Township District Memorial HospitalUrine BacteriaNONE SEEN #/HPFNONE [facility] Urine Occult BloodNegativeNEGUpper Valley Medical CenterUrine Other CastsNONE SEEN #/LPFNONE [facility] CenterUrine Other CrystalsNone Seen #/HPFNone [facility] CenterUrine Random Zpzyquyggh845.03 mg/dL20.00-300.00[address] HospitalUrine RBC0-2 #/HPF0-2FGrand Lake Joint Township District Memorial HospitalUrine Squamous Epithelial CellsNONE SEEN #/LPFNONE/RAREWilson Street HospitalUrine WBC0-2 #/HPFAbnormal NONE SEENWilson [address] HospitalPlatelet mean volume Auto (Bld) [Entitic vol]on 62-07-1054Gfgywzqk mean volume (Bld) [Entitic vol]10.6 fL 9.5-13.5FGrand Lake Joint Township District Memorial HospitalPlatelets Auto (Bld) [#/Vol]on 96-38-1971Bbsxtoqur (Bld) [#/Vol]221 10 3/xG940-451IkhzzrywtWilson Street HospitalRBC Auto (Bld) [#/Vol]on 45-04-5239ZFG (Bld) [#/Vol]4.43 10 6/uLLow 4.70-6.10[facility] Akronerum or plasma anion gap determinationon 25-59-7254Xemys gap [Moles/Vol]14.0 mmol/LFGrand Lake Joint Township District Memorial HospitalUrine protein/creatinine ratioon 96-43-8142Fdcltcv/Creatinine (U) [Ratio]0.17[address] HospitalAlbumin [Mass/volume] in Serum or Plasmaon 93-40-9284Speprqq [Mass/Vol]4.2 g/dL2.9-4.4FGrand Lake Joint Township District Memorial HospitalAutomated urine specific gravity by refractometryon 34-40-0923Nrnmxlqf gravity Refractometry automated (U) [Rel density]<=1.541Ykmfmsra8.005-1.[address] HospitalBasophils Auto (Bld) [#/Vol]on 12-16-2023 Basophils (Bld) [#/Vol]0.0 10 3/uL0.0-0.1FGrand Lake Joint Township District Memorial Hospital Basophils/100 WBC Auto (Bld)on 54-29-4050Guuarxyfo/100 WBC (Bld)0.5 %0.2-2.[address] HospitalBilirubin Auto test strip (U) [Mass/Vol]on 22-08-7777Sfwsrkpxq (U) [Mass/Vol]NegativeNEGATIVEWilson Street HospitalColor Auto (U)on 46-65-9173Ehrqp (U)LT. YELLOWYELLOWWilson Street HospitalEosinophils/100 WBC Auto (Bld)on 32-65-0564Nmkqpicwznq/100 WBC (Bld)2.5 %0.9-7.0[address] HospitalErythrocyte distribution width Auto (RBC) [Ratio]on 41-03-1866Xrxpxdvzxmw distribution width (RBC) [Ratio]12.6 %11.0-15.0[address] HospitalHematocrit Auto (Bld) [Volume fraction]on 46-10-7336Tbzweoavlp (Bld) [Volume fraction]42.8 %42.0-54.0[address] HospitalHemoglobin [Mass/volume] in Bloodon 51-67-8687Umdnodavbc (Bld) [Mass/Vol]14.0 g/dL14.0-18.0[address] HospitalIgA [Mass/volume] in Serum or Plasmaon 38-14-7197UkI [Mass/Vol]143 mg/dL10-[address] HospitalIgG [Mass/volume] in Serum or Plasmaon 61-75-0714KoM [Mass/Vol]1110 mg/oD891-5829WdaknrntvWilson [address] HospitalIgM [Mass/volume] in Serum or Plasmaon 90-15-1669KrX [Mass/Vol]62 mg/mC31-[address] HospitalImmunoglobulin light chains.kappa.free [Mass/volume] in Serumon 69-01-3558Xsyxbrgvhuzrcz light chains.kappa.free (S) [Mass/Vol]39.7 mg/LAbnormal3.3-19.4FGrand Lake Joint Township District Memorial Hospital Immunoglobulin light chains.kappa.free/Immunoglobulin light chains.lambda.free [Kassy 77-12-3246Girnbkzgpnyjds light chains.kappa.free/Immunoglobulin light chains.lambda.free (S) [Mass ratio]1.36Zqkhpvja7.26-1.65[address] HospitalComment on above:Performed at: [facility] [id number] Director: Vinny Alexander PhD, Phone: [phone] Immunoglobulin light chains.lambda.free [Mass/volume] in Serum or Plasmaon 24-59-6752Tzjyofvfhrcnex light chains.lambda.free [Mass/Vol]23.7 mg/L5.7-26.[address] HospitalKetones Auto test strip (U) [Mass/Vol]on 77-78-8300Bgmncdm (U) [Mass/Vol]NegativeNEGATIVEWilson Street HospitalLaboratory - Hematology and Cell countson 22-33-5876Mhxawuho granulocytes/100 WBC (Bld)0.7 %High0.0-0.5FGrand Lake Joint Township District Memorial Hospital Leukocytes [#/volume] corrected for nucleated erythrocytes in Blood by Automated counon 50-81-2755GSN corrected for nucl RBC Auto (Bld) [#/Vol]6.1 10 3/uL 4.0-11.0[address] HospitalLymphocytes Auto (Bld) [#/Vol]on 36-44-2197Nulzevprumx (Bld) [#/Vol]1.4 10 3/uL1.2-3.8[address] HospitalLymphocytes/100 WBC Auto (Bld)on 72-10-0531Afobxcqptih/100 WBC (Bld)23.1 % 20.5-60.0[facility] HospitalH Auto (RBC) [Entitic mass]on 41-92-1817XTV (RBC) [Entitic mass]31.0 pg25.9-34.0[address] HospitalMCHC Auto (RBC) [Mass/Vol]on 79-55-4465MPRR (RBC) [Mass/Vol]32.7 g/dL 29.9-35.2FGrand Lake Joint Township District Memorial HospitalMCV Auto (RBC) [Entitic vol]on 95-41-0658UHH (RBC) [Entitic vol]94.[address]fji86.0-94.0[address] HospitalMonocytes Auto (Bld) [#/Vol]on 12-47-7750Lmivzldxn (Bld) [#/Vol]0.8 10 3/uL0.3-0.8[address] HospitalMonocytes/100 WBC Auto (Bld)on 02-60-3982Achgzzoxa/100 WBC (Bld)13.3 %High1.7-12.0[address] HospitalNeutrophils Auto (Bld) [#/Vol]on 64-71-1215Gddefvvfeup (Bld) [#/Vol]3.6 10 3/uL1.4-6.5FGrand Lake Joint Township District Memorial HospitalNeutrophils/100 WBC Auto (Bld)on 53-30-5635Eebcgxsamob/100 WBC (Bld)59.9 %43.0-75.0[address] HospitalNo Panel Informationon 44-23-4200Odksqrbfvrx # (Auto)0.2 10 3/uL0.0-0.[address] HospitalImmature Granulocyte # (Auto)0.04 10 3/uLHigh 0.00-0.03[address] HospitalProtein Electrophoresis M-SpikeNot Observed g/dLNot ObservedWilson Street HospitalProtein Electrophoresis NoteComment.[address] HospitalComment on above: Protein electrophoresis scan will follow via computer,mail, or road machine operator delivery. Platelet mean volume Auto (Bld) [Entitic vol]on 33-66-1733Klmrdahf mean volume (Bld) [Entitic vol]9.9 fL9.5-13.5FGrand Lake Joint Township District Memorial HospitalPlatelets Auto (Bld) [#/Vol]on 11-64-5623Hllargkkd (Bld) [#/Vol]230 10 3/lA757-108IdbjardlaWilson [address] HospitalProtein Auto test strip (U) [Mass/Vol]on 12-16-2023 Protein (U) [Mass/Vol]NegativeNEG/TRACEWilson Street HospitalProtein [Mass/volume] in Serum or Plasmaon 60-19-8050Vqmmzot [Mass/Vol]7.1 g/dL6.0-8.[address] HospitalRBC Auto (Bld) [#/Vol]on 37-79-1407LDV (Bld) [#/Vol]4.51 10 6/uLLow4.70-6.10[facility] Akronerum globulin measurement (mass/volume)on 43-80-4115Puzcxlae (S) [Mass/Vol]2.9 g/dL2.2-3.9 [facility] Akronerum or plasma albumin/globulin mass ratioon 20-13-2777Cunofhp/Globulin [Mass ratio]1.5 {ratio}0.7-1.7FUniversity Hospitals Conneaut Medical Centererum or plasma alpha 1 globulin measurement by electrophoresis (mass/volume)on 70-39-8833Ndxgi 1 globulin Elph [Mass/Vol]0.2 g/dL0.0-0.4 [facility] Akronerum or plasma alpha 2 globulin measurement by electrophoresis (mass/volume)on 13-28-0059Wvuxx 2 globulin Elph [Mass/Vol]0.7 g/dL0.4-1.0[facility] Akronerum or plasma beta globulin measurement by electrophoresis (mass/volume)on 70-38-6959Sqwa globulin Elph [Mass/Vol]0.8 g/dL0.7-1.3FUniversity Hospitals Conneaut Medical Centererum or plasma gamma globulin measurement by electrophoresis (mass/volume)on 22-14-4673Mgtuq globulin Elph [Mass/Vol]1.1 g/dL0.4-1.8[facility] Akronerum or plasma immunoelectrophoresis interpretationon 23-53-6394Asknocjzmhoynt IEP [Interp] Comment.[address] HospitalComment on above:No monoclonality detected.Specific gravity Auto test strip (U) [Rel density]on 06-94-4813Xyjqfmrh gravity (U) [Rel density]CLEARCLEOhioHealth Riverside Methodist HospitalUrine glucose measurement by test strip (mass/volume)on 80-05-0641Tlkwjdp Test strip (U) [Mass/Vol]NegativeNEGATIVEWilson Street HospitalUrine hemoglobin detection by automated test stripon 59-40-3747Mncckmciyb Auto test strip Ql (U) NegativeNEGATIVEWilson Street HospitalUrine nitrite detection by automated test stripon 26-91-4294Ozavxvn Auto test strip Ql (U)NegativeNEGATIVE [address] HospitalUrobilinogen Auto test strip (U) [Mass/Vol]on 05-49-3802Pgwuxqyigoaf Qn (U)0.2 {Aimee'U}/dL0.2-1.0[address] HospitalpH Auto test strip (U)on 22-78-6310nB (U)6.0 [pH]5.0-9.0[address] HospitalAutomated urine specific gravity by refractometryon 61-23-0568Kbbupnxk gravity Refractometry automated (U) [Rel density]1.015 1.005-1.025[address] HospitalBilirubin Auto test strip (U) [Mass/Vol]on 50-65-1464Rdntodtov (U) [Mass/Vol]NegativeNEGATIVEWilson Street HospitalColor Auto (U)on 70-09-9049Bimmm (U)LT. [facility] CenterEstimated glomerular filtration rate (GFR) non- Americanon 67-93-5330WSO/1.73 sq M.predicted among non-blacks MDRD (S/P/Bld) [Vol rate/Area]32 mL/min/{1.73_m2}Low>=60[address] HospitalKetones Auto test strip (U) [Mass/Vol]on 04-72-8533Vdrfvfq (U) [Mass/Vol] NegativeNEGATIVEWilson Street HospitalLaboratory - Chemistry and Chemistry - challengeon 12-11-6918Vmdxdfb [Mass/Vol]9.1 mg/dL8.5-10.1FGrand Lake Joint Township District Memorial HospitalChloride [Moles/Vol]102 mmol/N41-031AguixcqtjWilson [address] HospitalCO2 [Moles/Vol]29.9 mmol/L21.0-32.0[address] HospitalCreatinine [Mass/Vol]2.02 mg/dLHigh0.70-1.30[address] HospitalGFR/1.73 sq M.predicted MDRD (S/P/Bld) [Vol rate/Area]39 mL/min/{1.73_m2} Low>=60[address] HospitalGlucose [Mass/Vol]92 mg/jO28-[address] HospitalPotassium [Moles/Vol]5.1 mmol/L3.5-5.1FUniversity Hospitals Conneaut Medical Centerodium [Moles/Vol]139 mmol/R387-595CkpgkakdzWilson [address] HospitalUrea nitrogen [Mass/Vol]29.0 mg/dLHigh7.0-18.0[facility] CenterUrea nitrogen/Creatinine [Mass ratio]14.4 mg/mgWilson Street HospitalProtein Auto test strip (U) [Mass/Vol]on 62-34-6724Apnzshk (U) [Mass/Vol]NegativeNEG/TRACESelect Medical Specialty Hospital - Akronerum or plasma anion gap determinationon 54-00-3600Aubgq gap [Moles/Vol]12.2 mmol/LFUniversity Hospitals Conneaut Medical Centerpecific gravity Auto test strip (U) [Rel density]on 49-17-6829Twpcjcmf gravity (U) [Rel density]CLEARCLEARFGrand Lake Joint Township District Memorial HospitalUrine glucose measurement by test strip (mass/volume)on 58-90-8134Evugbdn Test strip (U) [Mass/Vol]NegativeNEGUpper Valley Medical CenterUrine hemoglobin detection by automated test stripon 89-41-9101Icauuxatoa Auto test strip Ql (U)NegativeNEGUpper Valley Medical CenterUrine nitrite detection by automated test stripon 02-43-8830Izrakal Auto test strip Ql (U) NegativeNEGUpper Valley Medical CenterUrobilinogen Auto test strip (U) [Mass/Vol]on 08-73-9495Rlmnqvnjcmig Qn (U)0.2 {Aimee'U}/dL0.2-1.0[address] HospitalpH Auto test strip (U)on 53-99-8294rO (U)8.0 [pH]5.0-9.[address] HospitalNo Panel Informationon 44-75-8325Psgmtlzx Specific Antigen Total1.96 ng/mL<=4.00[address] HospitalPotassium on 67-65-3734Dlgrcftxy [Moles/Vol]4.3 mmol/LNormal3.5-5.1FGrand Lake Joint Township District Memorial HospitalComment on above:Result Comment: PERFORMED BY: [place] [address] PATHOLOGIST MARKET INVESTIGATOR ANGELICA SUN M.D.Performed By: #### K #### [place] [address] USABasic Metabolic Panelon 08-75-4317Sideo gap [Moles/Vol]9.5 mmol/LNormal6.0-15.0[address] HospitalComment on above:Performed By: #### CBC, BMP #### [facility] [address] [place] [address] USACalcium [Mass/Vol]9.2 mg/dLNormal8.6-10.3FGrand Lake Joint Township District Memorial HospitalComment on above:Result Comment: PERFORMED BY: [place] [address] PATHOLOGIST MARKET INVESTIGATOR ANGELICA SUN M.D.Performed By: #### CBC, BMP #### [facility] [address] [place] [address] USAChloride [Moles/Vol]107 mmol/NYopyfu38-077DtvohakjvWilson [address] HospitalComment on above:Performed By: #### CBC, BMP #### [facility] [address] [place] [address] USACO2 [Moles/Vol]28.4 mmol/IFmrsee71.0-31.0[address] HospitalComment on above:Performed By: #### CBC, BMP #### [facility] [address] [place] [address] USACreatinine [Mass/Vol]1.47 mg/dLHigh0.70-1.30[address] HospitalComment on above:Performed By: #### CBC, BMP #### [facility] [address] [place] [address] USAGFR/1.73 sq M.predicted MDRD (S/P/Bld) [Vol rate/Area] 49.742 mL/min/{1.73_m2}NormalWilson Street HospitalComment on above: Performed By: #### CBC, BMP #### [facility] [address] [place] [address] USAGlucose [Mass/Vol]90 mg/vGEwokxw69-254SpiggwrqgWilson [address] HospitalComment on above:Result Comment: Random Glucose Reference Range is dependent on time and content of last meal. Glucose of more than 200 mg/dL in a nonstressed, ambulatory subject supports the diagnosis of Diabetes Mellitus. ADA recommended reference rangePerformed By: #### CBC, BMP #### [facility] [address] [place] [address] USAPotassium [Moles/Vol]5.9 mmol/LHigh3.5-5.1FGrand Lake Joint Township District Memorial HospitalComment on above:Performed By: #### CBC, BMP #### [facility] [address] [place] [address] USASodium [Moles/Vol]139 mmol/XHfufqv465-672ApzdharaqWilson [address] HospitalComment on above:Performed By: #### CBC, BMP #### [facility] [address] [place] [address] USAUrea nitrogen [Mass/Vol]27 mg/dLHigh7-25[address] HospitalComment on above:Performed By: #### CBC, BMP #### [facility] [address] [place] [id number] USABasophils Auto (Bld) [#/Vol]Ordered By: Ryan Arriaga on 74-84-3599Xadqaqior (Bld) [#/Vol]0.0 10*3/uL0.0-0.2FGrand Lake Joint Township District Memorial HospitalBasophils/100 WBC Auto (Bld)Ordered By: Ryan Arriaga on 03-27-2023 Basophils/100 WBC (Bld)0.[address] HospitalCalcium [Mass/volume] in Serum or PlasmaOrdered By: Ryan Arriaga on 91-71-9583Apybsct [Mass/Vol]9.2 mg/dL8.6-10.3FGrand Lake Joint Township District Memorial HospitalCarbon dioxide, total [Moles/volume] in Serum or PlasmaOrdered By: Ryan Arriaga on 03-27-2023 CO2 [Moles/Vol]28.4 mmol/L21.0-31.0[address] HospitalChloride [Moles/volume] in Serum or PlasmaOrdered By: Ryan Arriaga on 56-04-9655Onkkmcde [Moles/Vol]107 mmol/A03-112InardpzxdWilson [address] HospitalComplete Blood Count Auto Diffon 12-74-1747Oaxjyozzg (Bld) [#/Vol]0.0 10*3/uLNormal0.0-0.[address] HospitalComment on above:Result Comment: PERFORMED BY: [place] [address] PATHOLOGIST MARKET INVESTIGATOR ANGELICA SUN M.D.Performed By: #### CBC, BMP #### [place] [address] USABasophils/100 WBC (Bld)0.6 %Normal.[address] HospitalComment on above:Performed By: #### CBC, BMP #### [place] [address] USAEosinophils (Bld) [#/Vol]0.2 10*3/uLNormal0.0-0.[address] HospitalComformerly [facility] hospital on above:Performed By: #### CBC, BMP #### [place] [address] USAEosinophils/100 WBC (Bld)3.2 %Normal.[address] HospitalComment on above:Performed By: #### CBC, BMP #### [place] [address] USAErythrocyte distribution width (RBC) [Ratio]13.3 %Normal 12.0-14.8[address] HospitalComformerly [facility] on above:Performed By: #### CBC, BMP #### [place] [address] USAHematocrit (Bld) [Volume fraction]36.5 %Low38.8-50.[address] [facility]Comformerly [facility] on above:Performed By: #### CBC, BMP #### [place] [address] USAHemoglobin (Bld) [Mass/Vol]12.3 g/dLLow13.0-17.0[address] HospitalComformerly [facility] hospital on above:Performed By: #### CBC, BMP #### [place] [address] USALymphocytes (Bld) [#/Vol]1.6 10*3/uLNormal1.00-4.[address] HospitalComment on above:Performed By: #### CBC, BMP #### [facility] [address] [place] [address] USALymphocytes/100 WBC (Bld)24.3 %Normal.[address] HospitalComment on above:Performed By: #### CBC, BMP #### [facility] [address]H (RBC) [Entitic mass]31.8 dgYqfzka14.5-35.2FGrand Lake Joint Township District Memorial HospitalComment on above:Performed By: #### CBC, BMP #### [facility] [address]V (RBC) [Entitic vol]94.[address] wPEfhdvk55.5-101[address] HospitalComment on above:Performed By: #### CBC, BMP #### [facility] [address] [place] [address] USAMean Corpuscular HGB Conc33.7 g/fCLplzaj00.5-35.6FGrand Lake Joint Township District Memorial HospitalComment on above:Performed By: #### CBC, BMP #### [facility] [address] [place] [address] USAMonocytes (Bld) [#/Vol]0.7 10*3/uLNormal0.0-0.8[address] HospitalComment on above:Performed By: #### CBC, BMP #### [facility] [address] [place] [address] USAMonocytes/100 WBC (Bld)11.1 %Normal.[address] HospitalComment on above:Performed By: #### CBC, BMP #### [facility] [address] [place] [address] USANeutrophils (Bld) [#/Vol]3.9 10*3/uLNormal1.8-7.7FGrand Lake Joint Township District Memorial HospitalComment on above:Performed By: #### CBC, BMP #### [facility] [address] [place] [address] USANeutrophils/100 WBC (Bld)60.8 %Normal.[address] HospitalComment on above:Performed By: #### CBC, BMP #### [facility] [address] [place] [address] USANRBC%0.1 /100{WBC}Normal0-0.5FGrand Lake Joint Township District Memorial HospitalComment on above:Performed By: #### CBC, BMP #### [facility] [address] [place] [address] USAPlatelet mean volume (Bld) [Entitic vol]7.9 fLNormal 6.6-10.1FGrand Lake Joint Township District Memorial HospitalComment on above:Performed By: #### CBC, BMP #### [facility] [address] [place] [address] USAPlatelets (Bld) [#/Vol]235 10*3/oOZngxjj632-550ZfrkbqrpzWilson [address] HospitalComment on above:Performed By: #### CBC, BMP #### [facility] [address] [place] [address] USARBC (Bld) [#/Vol]3.87 10*6/uLLow3.90-5.60[address] HospitalComment on above:Performed By: #### CBC, BMP #### [facility] [address] [place] [address] USAWBC (Bld) [#/Vol]6.5 10*3/uLNormal4.1-10.5FGrand Lake Joint Township District Memorial HospitalComment on above:Performed By: #### CBC, BMP #### [facility] [address] [place] [address] USACreatinine [Mass/volume] in Serum or PlasmaOrdered By: Ryan Arriaga on 10-18-6609Hjofksnfby [Mass/Vol]1.47 mg/dL0.70-1.30[address] HospitalECG 12 lead ECGon 03-07-3128AKH 12 lead ECGADENA [facility] [place] [address] [place] [address] Electrocardiograph Report Signed Patient: Marcelino Escobar MR#: [id number] 48 : 1950 Acct:[id number] Age/Sex: 72 / M ADM Date: 03/27/23 Loc: PS Room: Type: [facility] Attending Dr: Ryan Arriaga MD Ordering Provider: Ryan Arriaga MD Date of Service: 03/27/23 ECG/ECG 12 [...] on 03/28/2023 8:07:43 AM Referred By: DR ARRIAGA Electronically Signed By:DUGLAS HERNANDEZ MD Transcribed By: MUS Signed By Duglas Hernandez MD [address] HospitalEosinophils Auto (Bld) [#/Vol] Ordered By: Ryan Arriaga on 17-75-6329Eqdwysatzsa (Bld) [#/Vol]0.2 10*3/uL 0.0-0.45[address] HospitalEosinophils/100 WBC Auto (Bld)Ordered By: Ryan Arriaga on 94-90-4265Wfqhfsnjlaa/100 WBC (Bld)3.[address] HospitalErythrocyte distribution width Auto (RBC) [Ratio]Ordered By: Ryan Arriaga on 46-40-5532Czinegkoxtq distribution width (RBC) [Ratio]13.3 % 12.0-14.8[address] HospitalGlucose [Mass/volume] in Serum or PlasmaOrdered By: Ryan Arriaga on 71-89-0765Elsrhaq [Mass/Vol]90 mg/vP93-[address] HospitalComment on above:ADA recommended reference rangeRandom Glucose Reference Range is dependent on time and content of last meal. Glucose of more than 200 mg/dL in a nonstressed, ambulatory subject supports the diagnosisof Diabetes Mellitus.Hematocrit Auto (Bld) [Volume fraction]Ordered By: Ryan Arriaga on 51-58-1205Comunevqyy (Bld) [Volume fraction]36.5 %38.8-50.0[address] HospitalHemoglobin [Mass/volume] in BloodOrdered By: Ryan Arriaga on 54-17-2416Edyyqpkmhh (Bld) [Mass/Vol]12.3 g/dL13.0-17.0[address] HospitalLeukocytes [#/volume] corrected for nucleated erythrocytes in Blood by Automated coun Ordered By: Ryan Arriaga on 69-52-9130MZG corrected for nucl RBC Auto (Bld) [#/Vol]6.5 10*3/uL4.1-10.5FGrand Lake Joint Township District Memorial HospitalLymphocytes Auto (Bld) [#/Vol]Ordered By: Ryan Arriaga on 25-93-3025Iyosnunpsdb (Bld) [#/Vol]1.6 10*3/uL1.00-4.8[address] HospitalLymphocytes/100 WBC Auto (Bld) Ordered By: Ryan Arriaga on 05-34-2423Ihtmttpzwat/100 WBC (Bld)24.3 %.[facility] HospitalH Auto (RBC) [Entitic mass]Ordered By: Ryan Arriaga on 14-75-5336NPT (RBC) [Entitic mass]31.8 pg27.5-35.2FGrand Lake Joint Township District Memorial HospitalMCHC Auto (RBC) [Mass/Vol]Ordered By: Ryan Arriaga on 48-47-5153VOUB (RBC) [Mass/Vol]33.7 g/dL32.5-35.6FGrand Lake Joint Township District Memorial HospitalMCV Auto (RBC) [Entitic vol]Ordered By: Ryan Arriaga on 62-01-3994WNN (RBC) [Entitic vol]94.2 fL83.5-101[address] HospitalMonocytes Auto (Bld) [#/Vol] Ordered By: Ryan Arriaga on 78-46-7560Pibcwmtly (Bld) [#/Vol]0.7 10*3/uL0.0-0.[address] HospitalMonocytes/100 WBC Auto (Bld)Ordered By: Ryan Arriaga on 69-87-6186Tegqzmacs/100 WBC (Bld)11.[address] HospitalNeutrophils Auto (Bld) [#/Vol]Ordered By: Ryan Arriaga on 03-27-2023 Neutrophils (Bld) [#/Vol]3.9 10*3/uL1.8-7.7FGrand Lake Joint Township District Memorial Hospital Neutrophils/100 WBC Auto (Bld)Ordered By: Ryan Arriaga on 03-27-2023 Neutrophils/100 WBC (Bld)60.[address] HospitalNo Panel InformationOrdered By: Ryan Arriaga on 35-16-6263Pgybrhghh GFR (CKD-EPI)49.742 mL/MinWilson Street HospitalPharmacy Creatinine Clearance (ChemN/A [address] HospitalNucleated erythrocytes [Presence] in Blood by Automated countOrdered By: Ryan Arriaga on 68-24-3353Ursdwgbpz RBC Auto Ql (Bld)0.1 /100{WBC}0-0.5FGrand Lake Joint Township District Memorial HospitalPlatelet mean volume Auto (Bld) [Entitic vol]Ordered By: Ryan Arriaga on 23-10-9097Pqlrhbzp mean volume (Bld) [Entitic vol]7.9 fL6.6-10.1FGrand Lake Joint Township District Memorial Hospital Platelets Auto (Bld) [#/Vol]Ordered By: Ryan Arriaga on 01-53-0677Sntichhsc (Bld) [#/Vol]235 10*3/hV278-435MqazneusnWilson [address] HospitalPotassium [Moles/volume] in Serum or PlasmaOrdered By: Ryan Arriaga on 03-27-2023 Potassium [Moles/Vol]5.9 mmol/L3.5-5.1FGrand Lake Joint Township District Memorial HospitalRBC Auto (Bld) [#/Vol]Ordered By: Ryan Arriaga on 93-59-5792QDX (Bld) [#/Vol]3.87 10*6/uL3.90-5.60[facility] Hospital - Akronerum or plasma anion gap determinationOrdered By: Ryan Arriaga on 79-82-9381Ggzaj gap [Moles/Vol]9.5 mmol/L6.0-15.0[facility] Hospital - Akronodium [Moles/volume] in Serum or PlasmaOrdered By: Ryanfransisca Arriaga on 51-40-6956Cdpwhh [Moles/Vol]139 mmol/L 136-145[address] HospitalUrea nitrogen [Mass/volume] in Serum or PlasmaOrdered By: Ryan Arriaga on 73-66-0372Thpb nitrogen [Mass/Vol]27 mg/dL 7-25[address] HospitalWBC Auto (Bld) [#/Vol]Ordered By: Ryan Arriaga on 51-94-7801WJV (Bld) [#/Vol]6.5 10*3/uL4.1-10.5FGrand Lake Joint Township District Memorial HospitalCBC AUTO DIFFon 96-65-2874SYFK #0.0 103/ulNormal0.0-0.1The [facility] HospitalComment on above:Performed By: #### CBC #### [facility] [address] [address] [address] Haley MaysBasophils/100 WBC (Bld)0.4 %Normal0.2-2.0The [facility] Comment on above:Performed By: #### CBC #### [facility] [address] [address] [address] Haley Dowling #0.0 103/ulNormal0.0-0.7The [facility] HospitalComment on above: Performed By: #### CBC #### [facility] [address] [address] [address] Haley Hdezosinophils/100 WBC (Bld)0.5 %Critically low0.9-7.0The [facility] HospitalComment on above:Performed By: #### CBC #### [facility] [address] [address] [address] Haley Hdezrythrocyte distribution width (RBC) [Ratio]12.3 %Nszypf97.0-15.0 The [facility] HospitalComment on above:Performed By: #### CBC #### [facility] [address] [address] [address] Halye MaysHematocrit (Bld) [Volume fraction]33.2 %Critically low42.0-54.0 The [facility] HospitalComment on above:Performed By: #### CBC #### [facility] [address] [place] [address] Dr. Haley MaysHemoglobin (Bld) [Mass/Vol]11.6 g/dLCritically low14.0-18.0The [facility] HospitalComment on above:Performed By: #### CBC #### [facility] [address] [place] [address] Dr. Haley aMysIG #0.05 10e3/ulCritically high0.00-0.03The [facility] Comment on above:Performed By: #### CBC #### [facility] [address] [place] [address] Dr. Haley Nguyen %0.9 %Critically high0.0-0.5The [facility] HospitalComment on above:Performed By: #### CBC #### [facility] [address] [place] [address] Dr. Haley Craven #1.3 103/ulNormal1.2-3.8The [facility] HospitalComment on above:Performed By: #### CBC #### [facility] [address] [place] [address] Dr. Haley Chackomphocytes/100 WBC (Bld)21.9 %Goskzj07.5-60.0The [facility] HospitalComment on above:Performed By: #### CBC #### [facility] [address] [place] [address] Dr. Haley MccrackenUAL DIFF REQNONormalThe [facility] HospitalComment on above: Performed By: #### CBC #### [facility] [address] [place] [address] Dr. Haley Flores (RBC) [Entitic mass]32.0 wnHfqlks11.9-34.0The [facility] HospitalComment on above:Performed By: #### CBC #### [facility] [address] [address] [address] Haley Landa (RBC) [Mass/Vol]34.9 g/aJDwowhx13.9-35.2The [facility] HospitalComment on above:Performed By: #### CBC #### [facility] [address] [place] [address] Dr. Haley LandaV (RBC) [Entitic vol]91.5 qTIsvbeq96.0-94.0The [facility] HospitalComment on above:Performed By: #### CBC #### [facility] [address] [place] [address] Dr. Haley Gabriel #0.7 103/ulNormal0.3-0.8The [facility] HospitalComment on above:Performed By: #### CBC #### [facility] [address] [place] [address] Dr. Haley Panocytes/100 WBC (Bld)11.6 %Normal1.7-12.0The [facility] Comment on above:Performed By: #### CBC #### [facility] [address] [place] [address] Dr. Haley Corcoran #3.7 103/ulNormal1.4-6.5The [facility] HospitalComment on above:Performed By: #### CBC #### [facility] [address] [place] [address] Dr. Haley Carterutrophils/100 WBC (Bld)64.7 %Jqkteb52.0-75.0The [facility] HospitalComment on above:Performed By: #### CBC #### [facility] [address] [place] [address] Dr. Haley Olivalet mean volume (Bld) [Entitic vol]9.1 fLCritically low 9.5-13.5The [facility] HospitalComment on above:Performed By: #### CBC #### [facility] [address] [place] [address] Dr. Haley MaysPLT281 103/zcLkjyfh047-652Vnt Erika HospitalComment on above: Performed By: #### CBC #### [facility] [address] [address] [address] Haley MaysRBC3.63 106/ulCritically low4.70-6.10The [facility] HospitalComment on above:Performed By: #### CBC #### [facility] [address] [address] [address] Haley MaysWBC5.7 103/ulNormal4.0-11.0The [facility] HospitalComment on above: Performed By: #### CBC #### [facility] [address] [address] [address] Haley MaysPROF CHEM 8 (BAS METB)on 43-47-8526Ietxl gap [Moles/Vol]15.2 mmol/LNormalThe [facility] HospitalComment on above:Performed By: #### BMP #### [facility] [address] [place] [address] Dr. Haley MaysCalcium [Mass/Vol]8.8 mg/dLNormal8.5-10.1The [facility] Comment on above:Performed By: #### BMP #### [facility] [address] [place] [address] Dr. Haley MaysChloride [Moles/Vol]97 mmol/LCritically gux14-211Txe [facility] HospitalComment on above:Performed By: #### BMP #### [facility] [address] [place] [address] Dr. Haley MaysCO2 [Moles/Vol]23.5 mmol/HPpppqd77.0-32.0The [facility] Comment on above:Performed By: #### BMP #### [facility] [address] [place] [address] Dr. Haley MaysCreatinine [Mass/Vol]1.44 mg/dLCritically high0.70-1.30The [facility] HospitalComment on above:Performed By: #### BMP #### [facility] [address] [place] [address] Dr. Haley HdezGFR-AF ISZAJYTP42 mL/min/1.32z9Seuloxpmsl low>=60The [facility] HospitalComment on above:Performed By: #### BMP #### [facility] [address] [address] [address] Haley HdezGFR-NON AF EJQOTIIB56 mL/min/1.95x2Zyorxzodzs low>=60The [facility] HospitalComment on above:Performed By: #### BMP #### [facility] [address] [address] [address] Haley MaysGlucose [Mass/Vol]129 mg/dLCritically sfrx15-974Kdd [facility] HospitalComment on above:Performed By: #### BMP #### [facility] [address] [address] [address] Haley MaysPotassium [Moles/Vol]4.7 mmol/LNormal3.5-5.1The [facility] Comment on above:Performed By: #### BMP #### [facility] [address] [address] [address] Haley MaysSodium [Moles/Vol]131 mmol/LCritically vbl570-510Isv [facility] HospitalComment on above:Performed By: #### BMP #### [facility] [address] [address] [address] Haley MaysUrea nitrogen [Mass/Vol]16.0 mg/dLNormal7.0-18.0The [facility] HospitalComment on above:Performed By: #### BMP #### [facility] [address] [address] [address] Haley MaysUrea nitrogen/Creatinine [Mass ratio]11.1 mg/mgNormalThe [facility] HospitalComment on above:Performed By: #### BMP #### [facility] [address] [address] [address] Haley MaysXR KUB 1 VIEWon 13-31-0531SM KUB 1 VIEWEXAMINATION: XR KUB 1 VIEW HISTORY: Pain COMPARISON: No relevant comparison available. FINDINGS: BOWEL GAS PATTERN: No abnormal dilation or deviation. CALCIFICATIONS: None significant. OTHER: Mild bilateral hip osteoarthropathy. Degenerative spondylosis. No abnormal gaseous collections. IMPRESSION: Nonobstructive bowel gas pattern Electronically authenticated by: RUSTY SILVA Date: 2023-02-04 13:57NormRosio [facility]operBar[facility] Specimen: [id number] Received: 01/24/23 Status: TONY Miranda Num: [id number] Spec Type: Surgical Subm Dr: Vaughn Pretty MD Tissues: A Stomach - Biopsy/Polyp (DUOD BX) B Colon Biopsy (RNDM COL BX) C Colon Biopsy (DESC COL POLYP) Procedures: [place]/Janeth Hairston/Dianna L4/3 Age/ Patient Sex Location Account Attending Physician Marcelino Escobar/Patria [id number] Vaughn Pretty MD SPEC NUM: [id number] RECD: 01/24/23 STATUS: TONY MIRANDA NUM: [id number] REGINALDO: 01/23/23- SUBM DR: Vaughn Pretty MD ENTERED: 01/24/[address] [facility] [address]: SPEC TYPE: Surgical DEPT: S ENTERED BY: [id number] RECV BY: [id number] ORDERED: HE/6, Gross/Micro L4/3 ORDERED: HE/6, Gross/Micro [...] out celiac, rule out microscopic colitis Specimen: [id number] Received: 01/24/23 Status: TONY Miranda Num: [id number] Spec Type: Surgical Subm Dr: Vaughn Pretty MD Tissues: A Stomach - Biopsy/Polyp (DUOD BX) B Colon Biopsy (RNDM COL BX) C Colon Biopsy (DESC COL POLYP) Procedures: HE/6, Gross/Micro L4/3 Patient: Marcelino Escobar [id number] (Continued) Specimen: [id number] Received: 01/24/23 (Continued) Signed (signature on file) Pop Perez MD 01/27/23 1005 Specimen: [id number] Received: 01/24/23 Status: TONY Miranda Num: [id number] Spec Type: Surgical Subm Dr: Vaughn Pretty MD Tissues: A Stomach - Biopsy/Polyp (DUOD BX) B Colon Biopsy (RNDM COL BX) C Colon Biopsy (DESC COL POLYP) Procedures: [place]/Yovanny Gross/Micro L4/3 Patient: Marcelino Escobar [id number] (Continued) Specimen: [id number] Received: 01/24/23 (Continued) Gross Description A. Received [...] microscopic examination confirms the diagnosis. CPT Codes 13874?3 Specimen: [id number] Received: 01/24/23 Status: TONY Miranda Num: [id number] Spec Type: Surgical Subm Dr: Vaughn Pretty MD Tissues: A Stomach - Biopsy/Polyp (DUOD BX) B Colon Biopsy (RNDM COL BX) C Colon Biopsy (DESC COL POLYP) Procedures: HE/6, Gross/Dianna L4/3 Patient: Marcelino Escobar [id number] (Continued) Signed (signature on file) Pop Perez MD 01/27/[address] [place], [place] [id number] AUTO DIFFon 01-07-2023 BASO #0.0 103/ulNormal0.0-0.1[facility] Medical CenterComment on above:Performed By: #### CBC #### [facility] [address] [place] [address] Dr. Haley Spencersophils/100 WBC (Bld)0.5 %Normal0.2-2.0[facility] Comment on above:Performed By: #### CBC #### [facility] [address] [address] [address] Haley Dowling #0.1 103/ulNormal0.0-0.7The [facility] HospitalComment on above: Performed By: #### CBC #### [facility] [address] [place] [address] Dr. Hlaey Hdezosinophils/100 WBC (Bld)0.8 %Critically low0.9-7.0The [facility] HospitalComment on above:Performed By: #### CBC #### [facility] [address] [address] [address] Haley Hdezrythrocyte distribution width (RBC) [Ratio]12.6 %Wlcrih95.0-15.0 Premier Healthment on above:Performed By: #### CBC #### [facility] [address] [place] [address] Dr. Haley MaysHematocrit (Bld) [Volume fraction]37.7 %Critically low42.0-54.0 The [facility] HospitalComment on above:Performed By: #### CBC #### [facility] [address] [place] [address] Dr. Haley MaysHemoglobin (Bld) [Mass/Vol]12.3 g/dLCritically low14.0-18.0The [facility] Medical Centerment on above:Performed By: #### CBC #### [facility] [address] [place] [address] Dr. Haley Nguyen #0.05 10e3/ulCritically high0.00-0.03The [facility] Comment on above:Performed By: #### CBC #### [facility] [address] [place] [address] Dr. Haley Nguyen %0.8 %Critically high0.0-0.5The [facility]itt[facility] Medical Centerment on above:Performed By: #### CBC #### [facility] [address] [place] [address] Dr. Haley OwusuH #1.5 103/ulNormal1.2-3.8The [facility] HospitalComment on above:Performed By: #### CBC #### [facility] [address] [place] [address] Dr. Haley Owusuhocytes/100 WBC (Bld)25.0 %Heywnz90.5-60.0Premier Healthment on above:Performed By: #### CBC #### [facility] [address] [place] [address] Dr. Haley MccrackenUAL DIFF REQNONormalThe [facility] HospitalComment on above: Performed By: #### CBC #### [facility] [address] [address] [address] Haley Landa (RBC) [Entitic mass]31.1 nuQiykqv23.9-34.0The [facility] HospitalComment on above:Performed By: #### CBC #### [facility] [address] [place] [address] Dr. Haley Landa (RBC) [Mass/Vol]32.6 g/vUHdcyld68.9-35.2The [facility] HospitalComment on above:Performed By: #### CBC #### [facility] [address] [place] [address] Dr. Haley Landa (RBC) [Entitic vol]95.4 fLCritically high80.0-94.0The [facility] HospitalComment on above:Performed By: #### CBC #### [facility] [address] [place] [address] Dr. Haley Gabriel #0.7 103/ulNormal0.3-0.8The [facility] HospitalComment on above:Performed By: #### CBC #### [facility] [address] [place] [address] Dr. Haley Panocytes/100 WBC (Bld)11.3 %Normal1.7-12.0The [facility] Comment on above:Performed By: #### CBC #### [facility] [address] [address] [address] Haley Corcoran #3.8 103/ulNormal1.4-6.5The [facility] HospitalComment on above:Performed By: #### CBC #### [facility] [address] [place] [address] Dr. Haley Carterutrophils/100 WBC (Bld)61.6 %Fbeiik46.0-75.0The [facility] HospitalComment on above:Performed By: #### CBC #### [facility] [address] [place] [address] Dr. Haley Olivalet mean volume (Bld) [Entitic vol]9.2 fLCritically low 9.5-13.5The [facility] HospitalComment on above:Performed By: #### CBC #### [facility] [address] [place] [address] Dr. Haley MaysPLT300 103/kwGfipvv396-730Byw [facility] HospitalComment on above: Performed By: #### CBC #### [facility] [address] [place] [address] Dr. Haley MaysRBC3.95 106/ulCritically low4.70-6.10The [facility] HospitalComment on above:Performed By: #### CBC #### [facility] [address] [place] [address] Dr. Haley MaysWBC6.1 103/ulNormal4.0-11.0The [facility] HospitalComment on above: Performed By: #### CBC #### [facility] [address] [place] [address] Dr. Haley MaysCT ABD/PELV W CONon 76-08-5316EV ABD/PELV W CONEXAMINATION: CT ABD/PELV W CON 12/25/2022 HISTORY: Left [...] Electronically authenticated by: COURTNEY GILL Date: 2022-12-25 08:48NoCleveland Clinic Akron GeneralComplete Blood Count and Diffon 39-30-3344Haauahbzijtx Ql (d) [facility] [employer] Other Basophilic stippling LM Ql (d)[facility] [employer] Other RBC morphology finding Nom ([facility] [employer] Other IMMUNOGLOBULIN IGA QUANTITIAVEon 12-03-2022 Immunoglobulin A, Qn, Fdpyp531 mg/xWTczcjf61-827GvxMercy Health St. Vincent Medical CenterComment on above:Performed By: #### CBC #### [facility] [address] [place] [address] Dr. Haley Rodríguez TRANSGLUTAMINASE IGGon 89-81-3245x-Transglutaminase (tTG) IgG11 U/mLCritically high0-5ThKindred HealthcareComment on above:Result Comment: Negative 0 - 5 Weak Positive 6 - 9 Positive >9Performed By: #### TRNSIGG #### [facility] [address] [place] [address] Dr. Haley MaysTRANSGLUTAMINASE IGAon 94-36-1620y-Transglutaminase (tTG) IgA>100 Critically high0-3TKeenan Private HospitalComment on above:Result Comment: Negative 0 - 3 Weak Positive 4 - 10 Positive >10 . Tissue Transglutaminase (tTG) has been identified as the endomysial antigen. Studies have demonstr- ated that endomysial IgA antibodies have over 99% specificity for gluten sensitive enteropathy.Performed By: #### CBC #### [facility] [address] [place] [address] Dr. Haley Landis IgA/IgG Transglutaminaseon 98-12-5050gAK IgA/IgG TransglutaminaseSaffron Technology [employer] Other Basic Metabolic Panelon 77-96-7038Ykzje gap [Moles/Vol]14.2 mmol/LNormalDorsaVI Other Comment on above:Performed By: #### BMP #### [facility] [address] [address] [address] Haley MaysCalcium [Mass/Vol]8.4792244 mg/dL8.5-10.1 mg/dLDorsaVI Other Chloride [Moles/Vol]110 mmol/LCritically ocse75-548 [employer] Other Comment on above:Performed By: #### BMP #### [facility] [address] [address] [address] Haley MaysCO2 [Moles/Vol]26.02049150 mmol/L21.0-32.0 mmol/LNPetpace Other Creatinine [Mass/Vol]1.95346329 mg/dLCritically high 0.70-1.30 mg/dLDorsaVI Other Potassium [Moles/Vol]5.86609250 mmol/LCritically high 3.5-5.1 mmol/GILUPI Other Urea nitrogen [Mass/Vol]25.2867263 mg/dLCritically high7.0-18.0 mg/dLDorsaVI Other Urea nitrogen/Creatinine [Mass ratio]18.8 mg/mgNormal [employer] Other Comment on above:Performed By: #### BMP #### [facility] [address] [place] [address] Dr. Haley MaysBasic Metabolic Panelsee noteVideojug Other Basic Metabolic Yoezu461 mmol/J189-975 mmol/GILUPI Other Basic Metabolic Wascm178 mg/mQ93-033 mg/dLNosaint john's saint [facility] [employer] Other Basic Metabolic Panel53 mL/min/1.38n6Cuuacltcwp low >=60 mL/min/1.27l1Dager [employer] Other Basic Metabolic Panel>60 mL/min/1.73m2>=60 mL/min/1.98w3Eibnq [employer] Other CBC AUTO DIFFon 92-56-4021LEDL #0.0 103/ulNormal 0.0-0.1The [facility] HospitalComment on above:Performed By: #### CBC #### [facility] [address] [address] [address] Haley MaysBasophils/100 WBC (Bld)0.3 %Normal0.2-2.0[facility] Comment on above:Performed By: #### CBC #### [facility] [address] [address] [address] Haley Dowling #0.1 103/ulNormal0.0-0.7The [facility] HospitalComment on above: Performed By: #### CBC #### [facility] [address] [address] [address] Haley Hdezosinophils/100 WBC (Bld)1.6 %Normal0.9-7.0[facility] Comment on above:Performed By: #### CBC #### [facility] [address] [address] [address] Haley Hdezrythrocyte distribution width (RBC) [Ratio]12.9 %Gmxebs20.0-15.[address] Vincent Medical CenterComment on above:Performed By: #### CBC #### [facility] [address] [address] [address] Haley MaysHematocrit (Bld) [Volume fraction]36.7 %Critically low42.0-54.[address] Vincent Medical CenterComment on above:Performed By: #### CBC #### [facility] [address] [address] [address] Haley MaysHemoglobin (Bld) [Mass/Vol]11.9 g/dLCritically low14.0-18.0The [facility] HospitalComment on above:Performed By: #### CBC #### [facility] [address] [place] [address] Dr. Haley Nguyen #0.07 10e3/ulCritically high0.00-0.03The [facility] Comment on above:Performed By: #### CBC #### [facility] [address] [place] [address] Dr. Haley Nguyen %1.2 %Critically high0.0-0.5The [facility] HospitalComment on above:Performed By: #### CBC #### [facility] [address] [place] [address] Dr. Haley Craven #1.4 103/ulNormal1.2-3.8The [facility] HospitalComment on above:Performed By: #### CBC #### [facility] [address] [place] [address] Dr. Haley Owusuhocytes/100 WBC (Bld)23.4 %Vzjjks59.5-60.0The [facility] HospitalComment on above:Performed By: #### CBC #### [facility] [address] [place] [address] Dr. Haley MccrackenUAL DIFF REQNONormalThe [facility] HospitalComment on above: Performed By: #### CBC #### [facility] [address] [place] [address] Dr. Haley Landa (RBC) [Entitic mass]30.7 rcKxifpv00.9-34.0The [facility] HospitalComment on above:Performed By: #### CBC #### [facility] [address] [place] [address] Dr. Haley Landa (RBC) [Mass/Vol]32.4 g/lZKjmbco96.9-35.2The [facility] HospitalComment on above:Performed By: #### CBC #### [facility] [address] [address] [address] Haley LandaV (RBC) [Entitic vol]94.6 fLCritically high80.0-94.0The [facility] HospitalComment on above:Performed By: #### CBC #### [facility] [address] [address] [address] Haley Gabriel #0.7 103/ulNormal0.3-0.8The [facility] HospitalComment on above:Performed By: #### CBC #### [facility] [address] [address] [address] Haley Panocytes/100 WBC (Bld)11.5 %Normal1.7-12.0The [facility] on above:Performed By: #### CBC #### [facility] [address] [place] [address] Dr. Haley Corcoran #3.8 103/ulNormal1.4-6.5The [facility] HospitalComment on above:Performed By: #### CBC #### [facility] [address] [place] [address] Dr. Haley Carterutrophils/100 WBC (Bld)62.0 %Xfbzmn08.0-75.0The [facility] HospitalComment on above:Performed By: #### CBC #### [facility] [address] [place] [address] Dr. Haley Olivalet mean volume (Bld) [Entitic vol]9.4 fLCritically low 9.5-13.5The [facility] HospitalComment on above:Performed By: #### CBC #### [facility] [address] [place] [address] Dr. Haley MaysPLT269 103/hcJirybk171-367Atp [facility] HospitalComment on above: Performed By: #### CBC #### [facility] [address] [place] [address] Dr. Haley MaysRBC3.88 106/ulCritically low4.70-6.10The [facility] HospitalComment on above:Performed By: #### CBC #### [facility] [address] [address] [address] Haley MaysWBC6.1 103/ulNormal4.0-11.0The [facility] HospitalComment on above: Performed By: #### CBC #### [facility] [address] [address] [address] Haley Marieeon [id number] [Mass/Vol]57.0 ng/mLNormal 26.0-388.0The [facility] HospitalComment on above:Performed By: #### CBC #### [facility] [address] [place] [address] Dr. Haley MaysFerritin [Mass/Vol]57.7261047 ng/mL26.0-388.0 ng/mLNHarlem Valley State [facility] [employer] Other IRON AND TIBCon 12-02-2022% KGCAUOOJYR19.5 %NormalThe [facility] HospitalComment on above:Performed By: #### CBC #### [facility] [address] [place] [address] Dr. Haley Conn [Mass/Vol]88.0 ug/mHKggcfx21.0-175.0The [facility] Comment on above:Performed By: #### CBC #### [facility] [address] [place] [address] Dr. Haley MaysTIBC PNAYLW245.0 ug/dEIkpcsd568.0-450.0[facility] Comment on above:Performed By: #### CBC #### [facility] [address] [place] [address] Dr. Haley Conn [Mass/Vol]88.1355063 ug/dL65.0-175.0 ug/dLNort [employer] Other IRON AND SVCX574.0 ug/dL250.0-450.0 ug/dLNort [employer]pta [employer] Other IRON AND TIBC34.5 %[employer] Other PROF CHEM 8 (BAS METB)on [id number] [Mass/Vol] 8.7 mg/dLNormal8.5-10.1[facility] Vincent Medical CenterComment on above:Performed By: #### BMP #### [facility] [address] [address] [address] Haley MaysCO2 [Moles/Vol]26.0 mmol/FQsqlda53.0-32.0The [facility] Comment on above:Performed By: #### BMP #### [facility] [address] [address] [address] Haley MaysCreatinine [Mass/Vol]1.33 mg/dLCritically high0.70-1.30The [facility] HospitalComment on above:Performed By: #### BMP #### [facility] [address] [place] [address] Dr. De Leon ChangEGFR-AF MACEDONIAN>60Normal>=60The [facility] HospitalComment on above:Performed By: #### BMP #### [facility] [address] [place] [address] Dr. Haley HdezGFR-NON AF JHWPMCAG27 mL/min/1.19t6Efnxgvqvie low>=60The [facility] HospitalComment on above:Performed By: #### BMP #### [facility] [address] [place] [address] Dr. Haley MaysGlucose [Mass/Vol]106 mg/aPBgerjk14-184Ywt [facility] Comment on above:Performed By: #### BMP #### [facility] [address] [place] [address] Dr. Haley MaysPotassium [Moles/Vol]5.2 mmol/LCritically high3.5-5.1The [facility] HospitalComment on above:Performed By: #### BMP #### [facility] [address] [place] [address] Dr. Haley MaysSodium [Moles/Vol]145 mmol/RObboju238-493Etq [facility] Comment on above:Performed By: #### BMP #### [facility] [address] [address] [address] Haley Joya nitrogen [Mass/Vol]25.0 mg/dLCritically high7.0-18.0The [facility] HospitalComment on above:Performed By: #### BMP #### [facility] [address] [place] [address] Dr. Haley Mayer B12 AND FOLATEon 10-61-9741LMPRAJ62.60 ng/mLNormal8.60-58.90 The [facility] HospitalComment on above:Performed By: #### CBC #### [facility] [address] [place] [address] Dr. Haley Huertabalamin (Vitamin B12) [Mass/Vol]pg/mLCritically szmo965.0-986.0 [employer] Other Comment on above:Performed By: #### CBC #### [facility] [address] [place] [address] Dr. Haley Mayer B12 AND GLWLTT42.60 ng/mL8.60-58.90 ng/mLNHarlem Valley State Hospital [employer] Other CB AUTO DIFFon [id number] #0.0 103/ulNormal 0.0-0.1The [facility] HospitalComment on above:Performed By: #### CBC #### [facility] [address] [place] [address] Dr. Haley Spencersophils/100 WBC (Bld)0.3 %Normal0.2-2.0[facility] Comment on above:Performed By: #### CBC #### [facility] [address] [place] [address] Dr. Haley Dowling #0.1 103/ulNormal0.0-0.7The [facility] HospitalComment on above: Performed By: #### CBC #### [facility] [address] [place] [address] Dr. Haley Hdezosinophils/100 WBC (Bld)1.4 %Normal0.9-7.0[facility] Comment on above:Performed By: #### CBC #### [facility] [address] [address] [address] Haley Hdezrythrocyte distribution width (RBC) [Ratio]12.9 %Zmoxct74.0-15.0 [facility]ment on above:Performed By: #### CBC #### [facility] [address] [place] [address] Dr. Haley MaysHematocrit (Bld) [Volume fraction]39.5 %Critically low42.0-54.0 The [facility] HospitalComment on above:Performed By: #### CBC #### [facility] [address] [place] [address] Dr. Haley MaysHemoglobin (Bld) [Mass/Vol]11.9 g/dLCritically low14.0-18.0The [facility] Centerment on above:Performed By: #### CBC #### [facility] [address] [place] [address] Dr. Haley Nguyen #0.06 10e3/ulCritically high0.00-0.03The [facility] Comment on above:Performed By: #### CBC #### [facility] [address] [place] [address] Dr. Haley Nguyen %0.9 %Critically high0.0-0.5The [facility] Centerment on above:Performed By: #### CBC #### [facility] [address] [place] [address] Dr. Haley OwusuH #1.7 103/ulNormal1.2-3.8The [facility] HospitalComment on above:Performed By: #### CBC #### [facility] [address] [place] [address] Dr. Haely Owusuhocytes/100 WBC (Bld)25.6 %Ddyiir79.5-60.0The [facility] Centerment on above:Performed By: #### CBC #### [facility] [address] [place] [address] Dr. Haley MccrackenUAL DIFF REQNONormalThe [facility] HospitalComment on above: Performed By: #### CBC #### [facility] [address] [address] [address] Haley Landa (RBC) [Entitic mass]31.4 pnIjafqj41.9-34.0The [facility] HospitalComment on above:Performed By: #### CBC #### [facility] [address] [address] [address] Haley Landa (RBC) [Mass/Vol]30.1 g/xQSftvrl58.9-35.2The [facility] HospitalComment on above:Performed By: #### CBC #### [facility] [address] [address] [address] Haley Landa (RBC) [Entitic vol]104.2 fLCritically high80.0-94.0The [facility] HospitalComment on above:Performed By: #### CBC #### [facility] [address] [address] [address] Haley Gabriel #0.9 103/ulCritically high0.3-0.8The [facility] Comment on above:Performed By: #### CBC #### [facility] [address] [address] [address] Haley Panocytes/100 WBC (Bld)14.0 %Critically high1.7-12.0The [facility] HospitalComment on above:Performed By: #### CBC #### [facility] [address] [address] [address] Haley Corcoran #3.7 103/ulNormal1.4-6.5The [facility] HospitalComment on above:Performed By: #### CBC #### [facility] [address] [address] [address] Haley Carterutrophils/100 WBC (Bld)57.8 %Zogtnv43.0-75.0The [facility] HospitalComment on above:Performed By: #### CBC #### [facility] [address] [address] [address] Haley Olivalet mean volume (Bld) [Entitic vol]9.6 fLNormal9.5-13.5The [facility] HospitalComment on above:Performed By: #### CBC #### [facility] [address] [address] [address] Haley AikenT291 103/hgIbsppx984-262Fqo [facility] HospitalComment on above: Performed By: #### CBC #### [facility] [address] [address] [address] Haley MaysRBC3.79 106/ulCritically low4.70-6.10The [facility] HospitalComment on above:Performed By: #### CBC #### [facility] [address] [place] [address] Dr. Haley MaysWBC6.4 103/ulNormal4.0-11.0The [facility] HospitalComformerly [facility] on above: Performed By: #### CBC #### [facility] [address] [place] [address] Dr. Haley VargasID PROFILEon [id number]-HDL RATIO NORMSEE Madison HealthComment on above:Result Comment: 3.3 - 4.4 LOW RISK 4.4 - 7.1 AVERAGE RISK 7.1 - 11.0 MODERATE RISK >11.0 HIGH RISKPerformed By: #### LIPID, BMP, ALT #### [facility] [address] [place] [address] Dr. Haley MaysCholesterol [Mass/Vol]123 mg/dLNormal<=200[facility] Comment on above:Performed By: #### LIPID, BMP, ALT #### [facility] [address] [place] [address] Dr. Haley Willardesterol in HDL [Mass/Vol]26 mg/dLCritically svi33-35Sps [facility] on above:Performed By: #### LIPID, BMP, ALT #### [facility] [address] [place] [address] Dr. Haley Willardesterol in LDL [Mass/Vol]57.6 mg/dLFairfield Medical CenterComformerly [facility] on above:Performed By: #### LIPID, BMP, ALT #### [facility] [address] [address] [address] Haley MaysCholesterol.total/Cholesterol in HDL [Mass ratio]4.7 {ratio} NormalThe [facility] Medical Centerment on above:Performed By: #### LIPID, BMP, ALT #### [facility] [address] [address] [address] Haley Casas NORMAL> or = 60 mg/dl - LOW CARDIOVASCULAR RISK <40 mg/dl - HIGH CARDIOVASCULAR RISKFairfield Medical CenterComment on above:Performed By: #### LIPID, BMP, ALT #### [facility] [address] [address] [address] Haley MaysLDL CALC NORMALSEE BELOWFairfield Medical CenterComment on above:Result Comment: <100 mg/dl OPTIMAL 100 - 129 mg/dl NEAR OR ABOVE OPTIMAL 130 - 159 mg/dl BORDERLINE HIGH 160 - 189 mg/dl HIGH >190 mg/dl VERY HIGH Performed By: #### LIPID, BMP, ALT #### [facility] [address] [address] [address] Haley MaysTriglyceride [Mass/Vol]197 mg/dLCritically high<=150The [facility] HospitalComment on above:Performed By: #### LIPID, BMP, ALT #### [facility] [address] [address] [address] Haley MaysVLDL CALC39.4 mg/dLNoCleveland Clinic Akron GeneralComment on above: Performed By: #### LIPID, BMP, ALT #### [facility] [address] [address] [address] Haley MaysPROF CHEM 8 (BAS METB)on [id number] gap [Moles/Vol]13.9 mmol/LNormalMercy Health St. Vincent Medical CenterComment on above:Performed By: #### LIPID, BMP, ALT #### [facility] [address] [address] [address] Haley MaysCalcium [Mass/Vol]8.6 mg/dLNormal8.5-10.1The [facility] Comment on above:Performed By: #### LIPID, BMP, ALT #### [facility] [address] [address] [address] Haley MaysChloride [Moles/Vol]105 mmol/MUicpqi68-741Iym [facility] Comment on above:Performed By: #### LIPID, BMP, ALT #### [facility] [address] [place] [address] Dr. Haley MaysCO2 [Moles/Vol]25.1 mmol/EBxvkhf29.0-32.0The [facility] Comment on above:Performed By: #### LIPID, BMP, ALT #### [facility] [address] [address] [address] Haley MaysCreatinine [Mass/Vol]1.47 mg/dLCritically high0.70-1.30The [facility] HospitalComment on above:Performed By: #### LIPID, BMP, ALT #### [facility] [address] [place] [address] Dr. Haley HdezGFR-AF OTOGHWYO66 mL/min/1.20v3Wwrxxwsexg low>=60The [facility] HospitalComment on above:Performed By: #### LIPID, BMP, ALT #### [facility] [address] [place] [address] Dr. Haley Alaniz-NON AF KLKOUISU37 mL/min/1.08w0Smmawzdgwl low>=60The [facility] HospitalComment on above:Performed By: #### LIPID, BMP, ALT #### [facility] [address] [place] [address] Dr. Haley MaysGlucose [Mass/Vol]71 mg/dLCritically kvt62-499Abo [facility] HospitalComment on above:Performed By: #### LIPID, BMP, ALT #### [facility] [address] [place] [address] Dr. Haley MaysPotassium [Moles/Vol]5.0 mmol/LNormal3.5-5.1The [facility] Comment on above:Performed By: #### LIPID, BMP, ALT #### [facility] [address] [place] [address] Dr. Haley Gordonum [Moles/Vol]139 mmol/OXccjej125-376Vjp [facility] Comment on above:Performed By: #### LIPID, BMP, ALT #### [facility] [address] [address] [address] Haley Joya nitrogen [Mass/Vol]27.0 mg/dLCritically high7.0-18.0[facility] Medical CenterComment on above:Performed By: #### LIPID, BMP, ALT #### [facility] [address] [address] [address] Haley Joya nitrogen/Creatinine [Mass ratio]18.4 mg/mgNormalThe [facility] HospitalComment on above:Performed By: #### LIPID, BMP, ALT #### [facility] [address] [address] [address] Haley Wang [id number] [Catalytic activity/Vol]37 U/PWrxvwd93-52Wof [facility] HospitalComment on above:Performed By: #### LIPID, BMP, ALT #### [facility] [address] [address] [address] Haley Mays Vital Signs Date TimeVital SignValuePerforming GgskngaslFanapoid36-93-0750 09:32-0400Body ylcmcy830.34 cmBenjamin Ball DO Work Phone: [phone]10-20-2025 09:32-0400 Body mass index (BMI) [Ratio]25.9 kg/p7Rnzvyeyx Ball DO Work Phone: [phone]10-20-2025 09:32-0400 Body dyhxfc68.53 kgBenjamin Ball DO Work Phone: [phone]10-20-2025 09:32-0400 Diastolic blood udlacxex30 mm[Hg]Anirudh Ball DO Work Phone: [phone]10-20-2025 09:32-0400 Heart rate80 /minBenjamin Ball DO Work Phone: [phone]10-20-2025 09:32-0400 Respiratory rate12 /minBenmayomin Ball DO Work Phone: [facility]10-20-2025 09:32-0400 Systolic blood omdzmtbf956 mm[Hg]Anirudh Ball DO Work Phone: [facility]05-13-2025 12:06-[address]05-13-2025 12:06-0400Body mass index (BMI) [Ratio]25 kg/z7DtivoafawWilson [address] Hospital05-13-2025 12:06-0400Body [address]ffefh47.[address]05-13-2025 12:06-0400Diastolic blood mm[Hg][facility] 01-18-2025 12:06-0400Heart rate81 /[facility] 01-18-2025 12:06-0400Respiratory rate12 /[facility] 01-18-2025 12:06-0400Systolic blood mm[Hg][facility]04-29-2025 09:51-0400Body [address]gepr256.[address]04-29-2025 09:51-0400Body mass index (BMI) [Ratio]25.4 kg/f8BmmzqexswWilson [address] Hospital04-29-2025 09:51-0400Body [address]04-29-2025 09:51-0400Diastolic blood dbfgorwv90 mm[Hg] [facility]04-29-2025 09:51-0400Heart rate86 /[facility]04-29-2025 09:51-0400Respiratory rate12 /[facility]04-29-2025 09:51-0400Systolic blood hthhkkeo450 mm[Hg] [facility]04-10-2025 12:52-0400Body epzsaq713.[address] [facility]04-10-2025 12:52-0400Body mass index (BMI) [Ratio]26.8 kg/w8StmishdfjWilson [address] Hospital04-10-2025 12:52-0400Body ntkypjdmijo44.4 [degF][facility]04-10-2025 12:52-0400Body ahezpk51.[address]04-10-2025 12:52-0400Diastolic blood qkmyuplq37 mm[Hg][facility]04-10-2025 12:52-0400 Heart rate77 /[facility]04-10-2025 12:52-0400 Respiratory rate16 /[facility]04-10-2025 12:52-0400 SaO2% (BldA) [Mass fraction]98 %[facility]04-10-2025 12:52-0400Systolic blood mm[Hg][facility] 08-31-2024 08:55-0500Body [address] 08-31-2024 08:55-0500Body mass index (BMI) [Ratio]26.4 kg/b3KqygefmpxWilson [address] Hospital12-24-2024 08:55-0500Body afushx76.[address]12-24-2024 08:55-0500Diastolic blood yrxiynbw57 mm[Hg][facility]12-24-2024 08:55-0500Heart rate80 /[facility]12-24-2024 08:55-0500Respiratory rate12 [facility]12-24-2024 08:55-0500Systolic blood frclfyhl988 mm[Hg][facility]12-23-2024 10:22-0500Diastolic blood rgapndhj44 mm[Hg]Ashkan Pacheco [facility] Ojisvbfsjj02-38-0289 10:22-0500Systolic blood wgybaurk669 mm[Hg] Ashkan Pacheco [facility] Glhmdfgiyl15-90-4999 11:57-0400Body qbpzyi601.[address] [facility]10-24-2024 11:57-0400Body mass index (BMI) [Ratio]25.7 kg/y2ZiyixmbtxWilson Street Hospital10-24-2024 11:57-0400Body kyboxyhtlmw51.5 [degF][facility]10-24-2024 11:57-0400Body [address]vnfn83.[address]10-24-2024 11:57-0400Diastolic blood yojjtbkg21 mm[Hg][facility]10-24-2024 11:57-0400 Heart rate76 /[facility]10-24-2024 11:57-0400 Respiratory rate16 /[facility]10-24-2024 11:57-0400 SaO2% (BldA) [Mass fraction]96 %[facility]10-24-2024 11:57-0400Systolic blood imgeuwpt629 mm[Hg][facility] 05-03-2024 09:42-0400Body [address]tytx907.[address] 05-03-2024 09:42-0400Body mass index (BMI) [Ratio]25.4 kg/e2QsorfeszqWilson Street Hospital08-26-2024 09:42-0400Body otfucs11.[address]08-26-2024 09:42-0400Diastolic blood zzxyfvdg98 mm[Hg][facility]08-26-2024 09:42-0400Heart rate82 /[facility]08-26-2024 09:42-0400Systolic blood ogmmvjjw686 mm[Hg][facility]07-25-2024 14:13-0400Body [address]07-25-2024 14:13-0400Body mass index (BMI) [Ratio]25.1 kg/m2 [facility]07-25-2024 14:13-0400Body hzdligfrzko51.8 [degF][facility]07-25-2024 14:13-0400Body rcmoxx17.[address] [facility]07-25-2024 14:13-0400Diastolic blood ulhyuktr22 mm[Hg][facility]07-25-2024 14:13-0400Heart rate74 /min [facility]07-25-2024 14:13-0400Respiratory rate18 /min [facility]07-25-2024 14:137290LdW6% (BldA) [Mass fraction]99 %[facility]07-25-2024 14:130400Systolic blood qcecbcue111 mm[Hg][facility]07-11-2024 14:22-[address]07-11-2024 14:22-0400Body mass index (BMI) [Ratio]25.5 kg/q3MtlalmpvsWilson Street Hospital07-11-2024 14:22-0400Body nbtbbbfmzyr40.5 [degF][facility]07-11-2024 14:0400Body [address]xuou[address]07-11-2024 14:220400Diastolic blood devvnxsv69 mm[Hg][facility] 03-18-2024 14:22-0400Heart rate67 /[facility] 03-18-2024 14:220400Respiratory rate16 /[facility] 03-18-2024 14:226073LlB5% (BldA) [Mass fraction]97 %[facility]07-11-2024 14:22-0400Systolic blood vgibijnp138 mm[Hg][facility]04-25-2024 09:13-0400Body almmby215.[address]04-25-2024 09:13-0400Body mass index (BMI) [Ratio]24.7 kg/m2 [facility]04-25-2024 09:13-0400Body qmhyzm51.[address] [facility]04-25-2024 09:13-0400Diastolic blood afkgvrsc10 mm[Hg][facility]04-25-2024 09:13-0400Heart rate81 /min [facility]04-25-2024 09:13-0400Respiratory rate16 /min [facility]04-25-2024 09:13-0400Systolic blood dtnwlwho241 mm[Hg][facility]04-15-2024 14:12-0400Blood Pressure LocationPaG[facility]04-15-2024 14:12-0400Body vujnhqofwle31.6 [degF]Graham DORAN [facility]04-15-2024 14:12-0400Diastolic blood mvzhwneb04 mm[Hg]Graham DORAN [facility]04-15-2024 14:12-0400Heart rate75 /minPatrick DORAN [facility] [place] [address]-15-2024 14:12-0400Respiratory rate16 /minPatrick DORAN [facility] [place] [address]-15-2024 14:12-0400Systolic blood mmgkwanr966 mm[Hg]Graham DORAN [facility]02-28-2024 11:43-0500Body [address]qoomi[address]02-28-2024 11:43-0500Body mass index (BMI) [Ratio]24.5 kg/h2KhtmjpjhsWilson Street Hospital02-28-2024 11:43-0500Body [address]ymkjs23.[address]02-28-2024 11:43-0500Diastolic blood kvcivjcx56 mm[Hg][facility]02-28-2024 11:43-0500Heart rate87 /[facility]02-28-2024 11:43-0500Respiratory rate12 /[facility]02-28-2024 11:43-0500Systolic blood keuzgwba267 mm[Hg][facility]01-12-2024 09:30-0500Body .88 cmBenjamin Ball [address] [facility]01-12-2024 09:30-0500 Body mass index (BMI) [Ratio]23.62 kg/n9Qkoiaqoi Ball Other [employer] Other 01-12-2024 09:30-0500Body fwhldy42.02 kgBenjamin Ball Other [employer] Other 01-12-2024 09:30-0500Body egaajo43.[address]01-12-2024 09:30-0500Diastolic blood saeugfqg03 mm[Hg] Anirudh Ball Other [facility]01-12-2024 09:30-0500 Respiratory rate12 /minBenjamin Ball Other [employer] Other 01-12-2024 09:30-0500Systolic blood izgciymx882 mm[Hg] Anirudh Ball Other [facility]12-13-2023 08:45-0500 Body udjkbp470.88 cmBenjamin Ball Other [facility]12-13-2023 08:45-0500 Body mass index (BMI) [Ratio]22.62 kg/t5Yngjjtxb Ball Other [employer] Other 12-13-2023 08:45-0500Body zqncke02.66 kgBenjamin Ball Other [employer] Other 12-13-2023 08:45-0500Body fhxyby18.[address]12-13-2023 08:45-0500Diastolic blood qjrqibax51 mm[Hg] Anirudh Ball Other [facility]12-13-2023 08:45-0500 Respiratory rate12 /minBenjamin Ball Other [employer] Other 12-13-2023 08:45-0500Systolic blood mm[Hg] Anirudh Ball Other [facility]08-10-2023 11:00-0400 Body keqzka723.88 cmBenjamin Ball Other [employer] Other 08-10-2023 11:00-0400Body mass index (BMI) [Ratio] 22.51 kg/r9Glktxzgf Ball Other [employer] Other 08-10-2023 11:00-0400Body kdzyvt04.3 kgBenjamin Ball Other [employer] Other 08-10-2023 11:00-0400Diastolic blood kmzajxhb50 mm[Hg] Anirudh Ball Other [employer] Other 08-10-2023 11:00-0400Systolic blood zdlrxini295 mm[Hg] Anirudh Ball Other [employer] Other 08-07-2023 14:00-0400Body afldek146.88 cmImad Asaad Other [employer] Other 08-07-2023 14:00-0400Body mass index (BMI) [Ratio] 22.38 kg/m2Imad Asaad Other [employer] Other 08-07-2023 14:00-0400Body gwrbax22.84 kgImad Asaad Other [employer] Other 08-07-2023 14:00-0400Diastolic blood mm[Hg] Imad Asaad Other [employer] Other 08-07-2023 14:00-0400Systolic blood yvgfxmvl697 mm[Hg] [facility] [employer] Other 05-31-2023 09:30-0400Body faplrk380.88 cmBenjamin Ball Other [facility] [employer] Other 05-31-2023 09:30-0400Body mass index (BMI) [Ratio] 20.67 kg/z3Ohevnvmy Ball Other [place] [employer] Other 05-31-2023 09:30-0400Body oxzmsr89.13 kgBenjamin Ball Other [place] [employer] Other 05-31-2023 09:30-0400Diastolic blood mm[Hg] Anirudh Ball Other [place] [employer] Other 05-31-2023 09:30-0400Respiratory rate12 /minBenjamin Ball Other [place] [employer] Other 05-31-2023 09:30-0400Systolic blood hiohedtf535 mm[Hg] Anirudh Ball Other [place] [employer] Other 05-18-2023 16:15-0400Diastolic blood sxvikxnd09 mm[Hg] DO Anirudh Ball Work Phone: [facility]05-18-2023 16:15-0400 Heart rate68 /minDO Anirudh Ball Work Phone: [facility]05-18-2023 16:15-0400 Respiratory rate16 /minDO Anirudh Ball Work Phone: [facility]05-18-2023 16:15-0400 SaO2% (BldA) [Mass fraction]99 %DO Anirudh Ball Work Phone: [facility]05-18-2023 16:15-0400 Systolic blood mwpnimwx411 mm[Hg]DO Anirudh Ball Work Phone: [facility]05-18-2023 13:44-0400 Body kwzmay275.34 cmDO Anirudh Machina Work Phone: [facility]05-18-2023 13:44-0400 Body vjoggb24.39 kgDO Anirudh Ball Work Phone: [facility]05-01-2023 14:15-0400 Body rdexgi211.88 cmImad Asaad Other [employer] Other 05-01-2023 14:15-0400Body mass index (BMI) [Ratio]21.7 kg/m2Imad Asaad Other [employer] Other 05-01-2023 14:15-0400Body rinceb88.58 kgImad Asaad Other [employer] Other 05-01-2023 14:15-0400Diastolic blood gyvismis38 mm[Hg] Imad Asaad Other [employer] Other 05-01-2023 14:15-0400Systolic blood uwhahquw630 mm[Hg] Imad Asaad Other [employer] Other 04-12-2023 12:30-0400Body .88 cmBenjamin Machina Other [employer] Other 04-12-2023 12:30-0400Body mass index (BMI) [Ratio] 21.62 kg/u1Amqfrblm Ball Other [employer] Other 04-12-2023 12:30-0400Body buqeza50.3 kgBenjamin Ball Other [employer] Other 04-12-2023 12:30-0400Diastolic blood vyyjfytw90 mm[Hg] Anirudh Ball Other [employer] Other 04-12-2023 12:30-0400Respiratory rate12 /minBenjamin Ball Other [employer] Other 04-12-2023 12:30-0400Systolic blood mm[Hg] Anirudh Ball Other [employer] Other 03-27-2023 11:00-0400Body .88 cmBenjamin Ball Other [employer] Other 03-27-2023 11:00-0400Body mass index (BMI) [Ratio] 21.64 kg/s6Ycsgjutq Ball Other [employer] Other 03-27-2023 11:00-0400Body cuexgz70.39 kgBenjamin Ball Other [employer] Other 03-27-2023 11:00-0400Diastolic blood eqmhgpuu08 mm[Hg] Anirudh Ball Other [employer] Other 03-27-2023 11:00-0400Respiratory rate12 /minBenjamin Ball Other [employer] Other 03-27-2023 11:00-0400Systolic blood wcunmmyr649 mm[Hg] Anirudh Ball Other [employer] Other 03-20-2023 08:34-0400Blood Pressure LocationPatrick DORAN [facility]03-20-2023 08:34-0400Diastolic blood fbqtasyw96 mm[Hg]Graham DORAN [facility]03-20-2023 08:34-0400Heart rate69 /minPatrick [employer] [facility]03-20-2023 08:34-0400Respiratory rate16 /minPatricalexi [employer] [facility]03-20-2023 08:34-0400Systolic blood mm[Hg]Graham DORAN [facility]01-13-2023 09:30-0500Body ankxbh130.88 cmBenjamin Ball Other [employer] Other 01-13-2023 09:30-0500Body mass index (BMI) [Ratio] 22.46 kg/h3Wrfgsvor Ball Other [employer] Other 01-13-2023 09:30-0500Body ijfzpb06.12 kgBenjamin Ball Other [employer] Other 01-13-2023 09:30-0500Diastolic blood lydjktnp32 mm[Hg] Anirudh Ball Other [employer] Other 01-13-2023 09:30-0500Respiratory rate12 /minBenjamin Ball Other [employer] Other 01-13-2023 09:30-0500Systolic blood mm[Hg] Anirudh Lr Other [facility] [employer] Other Encounters Encounter DateEncounter TypeCare ProviderFacilityStart: 16-47-4520jijzaawklo Graham DORANFacility:[place]vueStart: 33-87-9799toollnknujZstdjcn R WATERS Facility:[place]Start: 07-04-2025 End: 37-48-4261iskizdjcfrOcxcxvdi Ball DO Work Phone: [facility]Start: 07-04-2025 End: 81-66-9006Fdelxik encounter procedureBenjamin Ball DO-[facility] Work Phone: Start: 06-27-2025 End: 45-90-0142hozrwbdazpIqwhfcaq Ball DO Work Phone: -[facility]Start: 06-27-2025 End: 36-87-6385Rwruqzp encounter procedureBenjamin Ball DO-[facility] Work Phone: Start: 05-30-2025 End: 61-15-6545vpsbsyskypElwtbmpx Ball DO Work Phone: [facility] Work Phone: Start: 05-30-2025 End: 21-59-8011Bobbuvz encounter procedureBenjamin Ball DO-[facility] Work Phone: Start: 04-28-2025 End: 84-02-0747brbvkyxyefRkbnmjlm Ball DO Work Phone: [facility] Work Phone: Start: 04-28-2025 End: 19-39-2763Ygtbblm encounter procedureBenjamin Ball DO-[facility] Work Phone: Start: 04-04-2025 End: 36-46-8071Ezpucyplr Amy Pacheco Work Phone: [facility] [place]Start: 42-05-0218snavuntxodQabfyk Al Elbert [facility]art: 03-10-2025 End: 19-56-8294fjrcfeyeryFlsleqbm Ball DO Work Phone: [facility] Work Phone: Start: 03-10-2025 End: 06-88-0503Xdafruf encounter procedureBenaris Lr DO-[facility] Work Phone: Start: 18-37-4174ygqcypmynjHGFPYCHW E PERRYFacility:[place]vueStart: 02-07-2025 End: 30-21-8792btigsyxvmjLgfkuflxgProMedica [facility] Hospital Work Phone: Start: 02-07-2025 End: 01-40-3358Mdpqevi encounter procedureFirelands Physician [facility] Work Phone: Start: 01-18-2025 End: 68-65-8172ufrxmnptizAbxtmlazdProMedica Bay Park Hospital Work Phone: Start: 01-18-2025 End: 43-92-6111Grscwbv encounter procedureFirelands Physician Group-[facility] Work Phone: Start: 01-13-2025 End: 33-38-9335eftruxubxpKpqbjsuejProMedica Bay Park Hospital Work Phone: Start: 01-13-2025 End: 50-61-4297Inmadgu encounter procedureFirelands Physician Group-[facility] Work Phone: Start: 01-04-2025 End: 01-86-2966zqftfbejksKnkdulgaiProMedica Bay Park Hospital Work Phone: Start: 01-04-2025 End: 77-34-8394Bfjzxhz encounter procedureFirelands Physician Group-[facility] Work Phone: Start: 12-27-2024 End: 38-50-3745nhzuyxrvmiXynuydr R WATERSFacility:[place]Start: 12-20-2024 End: 28-18-1060Lbf Drop offPadora Tung DORAN [facility] Start: 12-20-2024 End: 82-02-1117ducbaapvmkPwdtgrm R WATERSFacility:[place]vueStart: 12-16-2024 End: 79-63-3062cohjdvpcosGnagxrlstProMedica Bay Park Hospital Work Phone: Start: 12-16-2024 End: 46-86-5697Lpedbyb encounter procedurePsychiatric Hospital Physician [facility] Ne[facility] Work Phone: Start: 12-13-2024 End: 62-67-6158Bzhscbjfn identifierSamevirgilio Valeraelma Work Phone: [facility] [place]Start: 23-54-9186ulxhhzsjwdQsqfmt Al sonjaiki [facility] Centertart: 81-08-5081Msz-patient / Non-visitFirelands Physician Group-[employer] Work Phone: Start: 11-30-2024 End: 77-97-9223ryxbbhsppuQlbpmuqcfProMedica Bay Park Hospital Work Phone: Start: 11-30-2024 End: 65-49-1024Uptvhmb encounter procedureFirhospital corporation of america Physician [facility] Work Phone: Start: 2024 End: 28-80-3457xciefjykgcQvsxxixhlProMedica Bay Park Hospital Work Phone: Start: 2024 End: 75-10-9654Homtlvt encounter procedureFirhospital corporation of america Physician [facility] Work Phone: Start: 37-68-5734Sjn-patient / Non-visitFirelands Physician Group-[employer] Work Phone: Start: 09-20-2024 End: 04-65-7728pyhyaqznjuYrsrvvdmlProMedica Bay Park Hospital Work Phone: Start: 09-20-2024 End: 90-28-7501Svkbker encounter procedureFirelands Physician Group-[facility] Work Phone: Start: 18-93-8710Tan-patient / Non-visitFirelands Physician Group-[facility] Work Phone: Start: 08-31-2024 End: 72-50-6680Dsyrozt encounter procedureFirelands Physician Group-[facility] Work Phone: Start: 08-30-2024 End: 68-44-7330Wmhtuwxuq identifierSameer Al Shweiki Work Phone: [facility] [place]Start: 08-30-2024 End: 27-86-0567Ivkwnz Al Shweiki Work Phone: rva [place]edoStart: 75-97-0362plqtesjbohKpsklk Al Shweiki [facility]ertart: 08-18-2024 End: 37-96-9588Asrbvxb encounter procedureFirelands Physician Group-[facility] Work Phone: Start: 07-19-2024 End: 29-80-3481ttoczaakooJhrrpazneKettering Health [facility] Work Phone: Start: 07-19-2024 End: 89-36-3366Ibiyzqa encounter procedureFirelands Physician Group-[facility] Work Phone: Start: 07-01-2024 End: 73-99-1041siluwjkydtLkphvfqqtProMedica Bay Park Hospital Work Phone: Start: 07-01-2024 End: 92-05-3356Nofwtjj encounter procedureFirelands Physician [facility] Nephrology [facility] Work Phone: Start: 67-47-1858Gop-patient / Non-visitFirelands Physician Group-[facility] Work Phone: Start: 06-18-2024 End: 97-93-5090hvfnddzthrIglwoirdoProMedica Bay Park Hospital Work Phone: Start: 06-18-2024 End: 21-78-0646Fkybrhf encounter procedurePsychiatric Hospital Physician [facility] Work Phone: Start: 06-07-2024 End: 35-99-9368Kolkyeuqd identifierSameer Al Shweiki Work Phone: rv[facility] [place]Start: 06-07-2024 End: 50-39-2265Injird Al Shweiki Work Phone: rva [place]Start: 96-22-3650rsnlcpllwyJflkzz Al Shweiki [facility]ertart: 05-31-2024 End: 89-56-2750Yloghaxlu identifierSameer Al Shweiki Work Phone: rv[facility] [place]Start: 05-31-2024 End: 59-88-5164Hiytup Al Shweiki Work Phone: [facility] [place]Start: 09-18-2807tsckgmezbpBtronh Al Shweiki [facility]ertart: 05-19-2024 End: 87-23-7103hnfcsdszelTazavyrajProMedica Bay Park Hospital Work Phone: Start: 05-19-2024 End: 47-81-7634Mbyxzod encounter procedurePsychiatric Hospital Physician GroupNew[facility] Work Phone: Start: 05-03-2024 End: 50-66-9573mbcoxoysjaIgconorwoProMedica Bay Park Hospital Work Phone: Start: 05-03-2024 End: 86-48-4635Vykbdrr encounter procedurePsychiatric Hospital Physician GroupNewark Hospital Work Phone: start: 04-30-2024 End: 15-29-1291Fipzxx outpatient visit 25 minutesSameer Al Shweiki Work Phone: [facility] [place]Start: 22-16-8703hbhicliqzsYentzu Al Shweiki [facility]ertart: 04-07-2024 End: 73-99-9386aggubzfqieRygyhbgtbKettering Health [facility]burg Work Phone: Start: 04-07-2024 End: 91-46-9648Rofqyiz encounter procedureFirnuiqsuts Physician Group-[facility] Work Phone: Start: 04-01-2024 End: 47-91-1653kqxlvxrdipWwboyjtbkKettering Health [facility]amisburg Work Phone: Start: 04-01-2024 End: 22-15-8840Rlglirq encounter procedurePsychiatric Hospital Phys[facility] Nephrology [employer] Work Phone: Start: 70-16-3468Mib-patient / Non-visitPsychiatric Hospital Physician Group-[facility] Work Phone: Start: 03-18-2024 End: 54-71-0289vhyqntmbwjFuabefclsKettering Health [facility] Work Phone: Start: 03-18-2024 End: 94-35-1900Hhandzf encounter procedurePsychiatric Hospital Physician [facility] Neph[facility] Work Phone: Start: 03-04-2024 End: 87-23-9870lrjfjbcuboRtvbwkxxgKettering Health [facility]burg Work Phone: Start: 03-04-2024 End: 76-09-7615Frexntq encounter procedurePsychiatric Hospital Physician [facility] Work Phone: Start: 01-29-2024 End: 62-99-0791lqvozsqzukFzuxjumvfProMedica Bay Park Hospital Work Phone: Start: 01-29-2024 End: 08-80-0965Jwnbrmt encounter procedurePsychiatric Hospital Physician [facility] Work Phone: Start: 01-20-2024 End: 14-91-1446Xikazjrth identifierMay El Rashedy Work Phone: [facility] [place]Start: 01-20-2024 End: 71-47-2052Wra El Rashedy Work Phone: [facility] [place]Start: 01-01-2024 End: 82-53-1408nenjfligxyRdzxjxxqoProMedica Bay Park Hospital Work Phone: Start: 01-01-2024 End: 95-32-3034Litzjtn encounter procedureFirelands Physician [facility] Work Phone: Start: 12-30-2023 End: 60-60-6603bufxjnqkwvLxymyuhjfProMedica Bay Park Hospital Work Phone: Start: 12-30-2023 End: 27-63-3645Oxigffl encounter procedureFirelands Physician [facility] Work Phone: Start: 12-22-2023 End: 40-22-8009Kruadot encounter procedureGraham DORAN [facility] start: 94-72-7637Ndr-patient / Non-visitFirelands Physician Group-[facility] Work Phone: Start: 71-31-9481Fmv-patient / Non-visitFirelands Physician Group-[facility] Work Phone: Start: 46-96-7874Vzn-patient / Non-visitFirelands Physician Group-[facility] Work Phone: Start: 11-28-2023 End: 65-46-2014pqezqxxtvzGqjpffbguProMedica [facility] Hospital Work Phone: Start: 11-28-2023 End: 62-87-9258Pqhyoxl encounter procedureFirelands Physician Group-[facility] Work Phone: Start: 11-05-2023 End: 82-14-4258Bskwvdv encounter procedureFirelands Physician Group-[facility] Work Phone: Start: 10-24-2023 End: 73-85-8519gcuxoujehlXqcicrflpProMedica Bay Park Hospital Work Phone: Start: 10-24-2023 End: 59-33-6857Rkdsosh encounter procedureFirnuiqsuts Physician Group-[facility] Work Phone: Start: 10-21-2023 End: 48-25-6753Ujhkjoqjd identifierMay El Rashedy Work Phone: [facility] [place]Start: 10-21-2023 End: 25-11-0143Lmj El Rashedy Work Phone: [facility] [place]Start: 09-22-2023 End: 82-11-7522imcxggdwwwBaiqozhy Ball Other [employer] Other Start: 10-87-9721Fabpnrv evaluation of patient and reportAnirudh Lr [facility]tart: 09-19-2023 End: 76-13-5516jotaaaydtfUovcthgn Adeline Other [employer] Other Start: 78-60-5678Ktogfr outpatient visit 15 minutes Anirudh AdelineOhio[facility] ClinicStart: 09-19-2023 End: 94-47-4892Wroykqn encounter procedureFirhospital corporation of america Physician [facility] Work Phone: Start: 08-26-2023 End: 83-09-0044Himsnaiqh identifierMay El Rashedy Work Phone: [facility] [place]Start: 08-26-2023 End: 67-49-6582Akx El Rashedy Work Phone: rvA [place]Start: 08-21-2023 End: 99-03-7162Nwjcll outpatient visit 15 minutesAvani España Maynor Work Phone: rvA [place]Start: 08-20-2023 End: 01-97-2934qdhlastertStjyxnnk Ball Other [employer] Other Start: 22-82-1015Spruuo outpatient visit 15 minutes [facility]h L[facility] ClinicStart: 08-20-2023 End: 08-74-9127Wdqkyxy encounter procedureFirelands Physician Group-[facility] Work Phone: Start: 08-06-2023 End: 35-94-7446fidobyneshWmqoyrkm Ball Other [employer] Other Start: 05-49-9306Luiaaitgl encounterBenaris Lr Medical ClinicStart: 07-29-2023 End: 94-53-3250Belmuj outpatient visit 25 minutesMay Brandon Rashedy Work Phone: rva [place]edoStart: 07-28-2023 End: 95-12-2318uzihjtbvnhKzkmbozx Ball Other [employer] Other Start: 80-08-1428Pqylnfdfk encounterBenaris Lr Medical ClinicStart: 07-21-2023 End: 19-49-6545cwgsndvzdwZkevymuy Ball Other [employer] Other Start: 13-63-5011Mlfgvfs evaluation of patient and reportAnirudh Lr Medical ClinicStart: 07-14-2023 End: 99-43-0349pwaeaiayvcXxosmvrw Ball Other [employer] Other Start: 19-52-1365Wkcmosyyu encounterBenaris Lr Medical ClinicStart: 05-19-2023 End: 25-07-3374dcscrouwhqEcfzdi Weiss Other [employer] Other Start: 17-51-7482Kjpxkmf evaluation of patient and reportMarcia BraunMENDOZA Lr Medical ClinicStart: 58-90-6914Pguugnbfl encounter An[facility]udh Lr Medical ClinicStart: 05-16-2023 End: 62-03-4778ozekjtdsfdKtwo Asaad Other [employer] Other Start: 19-39-3697Lhgrpspkq encounterImad AsaadFPG [facility] ClinicStart: 05-09-2023 End: 51-71-7641hqxwpdyitbBytj Asaad Other [employer] Other Start: 79-75-7694Tovbtdjyx encounterImad AsaadFPG Referral CoordinatorStart: 05-02-2023 End: 53-70-9512jqhkrgjlyhVjadgygk Ball Other [employer] Other Start: 31-79-3510Mktgokakj encounterBenjamin BallFPG [facility] ClinicStart: 04-17-2023 End: 01-12-6532ncaleqvvptRefisyuv Ball Other [employer] Other Start: 86-43-1805Wpfewm outpatient visit 25 minutes Anirudh BallFPG [facility] ClinicStart: 04-14-2023 End: 79-32-7150kmqpnujmkcDdzn Asaad Other [employer] Other Start: 26-86-3868Odkjhd outpatient visit 25 minutes Imad AsaadFPG GastroenterologyStart: 00-89-2120Slywfbhkg encounterBenjamin Ball [facility] ClinicStart: 04-10-2023 End: 40-77-9860jjkgfoctegJibhbhlo BallNort [employer] Other Start: 04-04-2023 End: 14-08-1210htduomitrjAmhlnsbx Ball Other [employer] Other Start: 71-41-1873Hgxagotja encounterBenjamin BallFPG [facility] ClinicStart: 04-01-2023 End: 12-49-5603iarqmndxdcPuhfrdmv Ball Other [employer] Other Start: 91-00-9844Uhyglaizg encounterBenjamin BallFPG [facility] ClinicStart: 03-27-2023 End: 32-66-4330rovnxbvgrjJeffpqlu BallFacility:[facility] Start: 03-27-2023 End: 43-90-2750ceodkakmxwVN Anirudh Ball Work Phone: [facility] Work Phone: Start: 03-27-2023 End: 15-41-5054Iwczaen encounter procedureDO Anirudh Ball Work Phone: [facility] [employer] Work Phone: Start: 02-18-2023 End: 75-91-6069nmxsxpfwjqIzbpfbto Ball Other [employer] Other Start: 68-11-8714Nxeviitky encounterBenjamin BallFPG [facility] ClinicStart: 02-10-2023 End: 90-30-5513gxhpvxfngqXrqsopeb Ball Other [employer] Other Start: 10-73-6480Xesxofh evaluation of patient and reportBenjamin BallFPG [facility] ClinicStart: 02-05-2023 End: 23-67-4625maxtgprrcxEgizlbgj Ball Other [employer] Other Start: 50-64-2906Hmuahv outpatient visit 15 minutes Anirudh BallFPG [facility] ClinicStart: 02-04-2023 End: 29-37-2121kvdxbtzfpkHMBDIXE D KATKOFacility:Z1Ejcsf: 01-31-2023 End: 60-43-4260euuvcsqsyoZeqw Asaad Other [employer] Other Start: 45-42-3603Foikdgjph encounterImad AsaadFPG GastroenterologyStart: 01-23-2023 End: 27-60-8324fweuwoevwyXkhp AsaadFacility:[facility] Start: 01-23-2023 End: 59-07-0826Wjbqnnxug to same day surgery centerDO Anirudh Ball Work Phone: [facility] Work Phone: Start: 01-07-2023 End: 27-18-0146idforzwcrwBMPZ ASAADFacility:W3Pwumx: 01-06-2023 End: 41-06-1567bljjthanobSqei Asaad Other [employer] Other Start: 25-07-2419Khqkqz outpatient new 45 minutesImad AsaadFPG GastroenterologyStart: 01-02-2023 End: 57-08-0457boxjalsbfjBhsjdcyg Ball Other [employer] Other Start: 96-39-5664Uvgtdqb evaluation of patient and reportBenaris LrFPG [facility] Medical ClinicStart: 16-67-6176Zyurgiwux encounter [facility]h Lr [facility] ClinicStart: 12-25-2022 End: 41-62-7406noczzcwleaEB ANIRUDH ADELINESaffron Technology [employer] Other Start: 12-18-2022 End: 96-62-4063mjwhzuepdqRnerbkvs Ball Other [employer] Other Start: 97-52-7738Crakgg outpatient visit 25 minutes Anirudh FigueroaG [facility] ClinicStart: 12-13-2022 End: 58-31-1276abkkmpmcrxBifsxryk Ball Other [employer] Other Start: 75-00-0066Lzidduqqb encounterBenjamin BallFPG [facility] ClinicStart: 12-04-2022 End: 91-02-7253dfenzgbuunAbhqdjsw Ball Other [employer] Other Start: 79-64-0796Tgauccoxp encounterBenaris Lr Medical ClinicStart: 12-02-2022 End: 48-38-7456krvhxbtpksBI ANIRUDH [facility] [employer] Other Start: 25-39-8665Idzgghe evaluation of patient and reportBetiffanie Lr Medical ClinicStart: 35-28-3698Gfribh outpatient visit 15 minutesBenaris Lr Medical ClinicStart: 11-25-2022 End: 77-40-3157Fwnopjh encounter procedureGraham DORAN [facility] start: 11-18-2022 End: 19-78-5087bhppmsyglpPY GRAHAM DORAN .Facility:T6Senbp: 10-31-2022 End: 32-39-9199yxgtzgyzosCxhoyrya Ball Other [facility] [employer] Other Start: 74-61-6759Ufblfem evaluation of patient and reportAnirudh Lr Medical ClinicStart: 10-14-2022 End: 28-99-3929Ravnnphll Aime Bates Work Phone: RVMasha HariniuskyStart: 10-14-2022 End: 31-18-1596Dredssg K Dabbs Work Phone: RVMasha AudreyyStart: 10-08-2022 End: 03-23-6692hceiamwjaiCpuwygna Ball Other [employer] Other Start: 23-27-5380Ugfjnrfkb encounterBenaris Lr Medical ClinicStart: 09-30-2022 End: 32-22-9729xwlanjeovdLshrfcnz Ball Other [employer] Other Start: 61-81-3288Dkvcxex evaluation of patient and reportAnirudh Lr Medical ClinicStart: 87-49-8068Vrtaruitz for general adult medical examination without abnormal findings ANIRUDH ADELINEDoctors Hospitaltart: 09-27-2022 End: 81-85-4893hodctnzdudQazuyjby Ball Other [employer] Other Start: 85-64-2874Wqnntarbj encounterBetiffanie Lr Medical ClinicStart: 12-62-5811Ynynxts encounter procedureAnirudh Lr Medical ClinicStart: 09-20-2022 End: 82-60-2314dxqgjvwkvdUO [facility] [employer] Other Start: 09-20-2022 End: 66-67-5239Avkjxolpc for general adult medical examination without abnormal findingsDR ANIRUDH LRFacility:B0Znypn: 06-24-2022 End: 81-87-5897Emlrkxpnc identifierChaevelyn Truong Jana Work Phone: [facility] [place]kyStart: 06-24-2022 End: 95-54-9157Evcpbwv K Jana Work Phone: [facility] [place]kyStart: 03-04-2022 End: 06-66-7609Piipkvsxz identifierCharles K Jana Work Phone: [facility] [place]Start: 03-04-2022 End: 11-58-2016Fwxbult K Jana Work Phone: [facility] [place]Start: 01-07-2022 End: 20-93-8900Rdnlyaegx identifierCharles K Jana Work Phone: [facility] [place]Start: 01-07-2022 End: 68-30-0187Tkjbucd K Jana Work Phone: rva [place]kyStart: 12-10-2021 End: 87-27-2358Uewrxvrym identifierCharles K Jana Work Phone: [facility] [place]Start: 12-10-2021 End: 37-30-5459Gwmmgol K Jana Work Phone: [facility] [place]kyStart: 11-21-2021 End: 70-23-6943Znwovs outpatient visit 25 minutesAhmed M Alkaliby Work Phone: [facility] [place]kyStart: 10-31-2021 End: 59-69-3643Wqcigb outpatient visit 15 minutesAhmed M Alkaliby Work Phone: [facility] [place]kyStart: 10-15-2021 End: 49-70-6270Esxdxr outpatient visit 15 minutesCharles K Jana Work Phone: rvA AudreyyStart: 64-46-7327Xvkam health examination Anirudh Ball Other [place] [employer] Other Start: 06-06-2021 End: 20-01-7518Aqtdji outpatient visit 15 minutesCharles K Jana Work Phone: [facility] [place]kyStart: 03-07-2021 End: 41-99-3191Skzlae outpatient visit 25 minutesCharles K Jana Work Phone: [facility] [place]Start: 12-06-2020 End: 92-02-2036Ixfxpyhks identifierCharles K Jana Work Phone: [facility] [place]: 12-06-2020 End: 22-92-8244Rxkzwsu K Jana Work Phone: [facility] [place]: 09-06-2020 End: 16-28-9687Llbpgk outpatient visit 15 minutesCharles K Jana Work Phone: [facility] [place]: 07-12-2020 End: 01-32-3960Gmuxwvhre identifierCharles K Jana Work Phone: [facility] [place]: 07-12-2020 End: 61-05-3765Snimuxn K Jana Work Phone: [facility] [place]: 01-05-2020 End: 65-01-0629Hztrpxeyc identifierCharles K Jana Work Phone: [facility] [place]: 01-05-2020 End: 76-24-3614Vcdsgxi K Jana Work Phone: [facility] [place]: 10-06-2019 End: 30-49-3715Yqwuqf outpatient visit 15 minutesCharles K Jana Work Phone: [facility] [place]: 07-07-2019 End: 80-82-1092Caxbpopoj identifierCharles K Jana Work Phone: [facility] [place]: 07-07-2019 End: 93-14-5795Tglkkju K Jana Work Phone: [facility] [place]kyStart: 04-14-2019 End: 82-60-6094Yctfcjuny identifierCharles K Jana Work Phone: [facility] [place]Start: 04-14-2019 End: 70-51-1708Ansnudk K Jana Work Phone: [facility] [place]Start: 02-17-2019 End: 04-50-9594Fmzosoqoz identifierCharles K Jana Work Phone: [facility] [place]Start: 02-17-2019 End: 70-58-7577Mnumaww K Jana Work Phone: [facility] [place]Start: 01-06-2019 End: 93-69-9843Irtomjxkc identifierCharles K Jana Work Phone: [facility] [place]Start: 01-06-2019 End: 31-88-0281Uhnamob K Jana Work Phone: [facility] [place]Start: 10-07-2018 End: 11-29-1050Nzspvpief identifierCharles K Jana Work Phone: [facility] [place]Start: 10-07-2018 End: 84-77-7672Leytqkt K Jana Work Phone: [facility] [place]Start: 08-05-2018 End: 13-83-4505Clczdgdtt identifierCindyrles K Jana Work Phone: [facility] [place]Start: 08-05-2018 End: 03-55-4532Zqqoysh K Jana Work Phone: [facility] [place]Start: 04-15-2018 End: 39-50-9115Jgnnmmcmk identifierCharles K Jana Work Phone: [facility] [place]Start: 04-15-2018 End: 67-42-0437Vosjybh K Jana Work Phone: [facility] [place]Start: 02-18-2018 End: 44-69-5454Sdfhoqzfh identifierCharles K Jana Work Phone: [facility] [place]Start: 02-18-2018 End: 84-62-4147Ayspxoi K Jana Work Phone: [facility] [place]Start: 01-14-2018 End: 73-72-9212Ecxicn outpatient visit 15 minutesCharles K Jana Work Phone: [facility] [place]: 12-10-2017 End: 65-75-7585Rgbenoqfg identifierCharles K Jana Work Phone: [facility] [place]: 12-10-2017 End: 99-26-1179Aciwagf K Jana Work Phone: [facility] [place]Start: 11-19-2017 End: 66-21-2142Kygkqwdqu identifierCharles K Jana Work Phone: [facility] [place]: 11-19-2017 End: 09-12-1210Qtguwky K Jana Work Phone: RVMasha [place]Start: 10-14-2017 End: 68-37-8440Shkeiarsz identifierIra K Orgel Work Phone: rvMasha Floyd WildwoodStart: 10-14-2017 End: 08-77-6772Clx K Orgel Work Phone: RVMasha Floyd WildwoodStart: 09-10-2017 End: 49-89-7646Pscbturqb identifierCharles K Jana Work Phone: [facility] [place]Start: 09-10-2017 End: 51-89-9819Cgwslix K Jana Work Phone: rvA [place]iuskyStart: 07-30-2017 End: 77-22-5318Wjlbxoalf identifierCharles K Jana Work Phone: rvMasha [place]Start: 07-30-2017 End: 85-39-1112Ozudhsz K Jana Work Phone: rvMasha [place]Start: 06-23-2017 End: 01-85-5250Gmvgooolu identifierIra K Orgel Work Phone: rvMasha [place]Start: 06-23-2017 End: 64-62-4658Kdf K Orgel Work Phone: [facility] [place]Start: 05-13-2017 End: 07-86-5505Tqxbwu outpatient visit 15 minutesCharles K Jaan Work Phone: [facility] [place]Start: 04-02-2017 End: 01-75-5441Mbgtlhltn identifierCharles K Jana Work Phone: [facility] [place]Start: 04-02-2017 End: 89-39-3026Lkoolhr K Jana Work Phone: [facility] [place]Start: 02-12-2017 End: 97-74-6338Obrxfccum identifierCharles K Jana Work Phone: [facility] [place]Start: 02-12-2017 End: 91-35-2099Ubqkjxu K Jana Work Phone: [facility]va [place]Start: 01-08-2017 End: 02-24-0704Gfyymmqgv identifierKhari Bates Work Phone: rvMasha [place]Start: 01-08-2017 End: 52-98-1227Vzutqvh K Dabbs Work Phone: rva SandjyayStart: 12-11-2016 End: 10-61-9107Pxfejy outpatient new 45 minutesChaevelyn Alexi Jana Work Phone: RVMasha Raya Procedures DateProcedureProcedure DetailPerforming ClinicianStart: 04-04-2025 End: 67-62-2827Qwpmkqyuylnm ophthalmic imaging retinaSameer Al ikiStart: 20-96-2292Xbznn 1mg Pre-filled SyringeSameer Al Start: 04-04-2025 End: 86-75-0088Prfyx 1mg Pre-filled SyringeSameer Al [facility] MDStart: 04-04-2025 End: 25-67-2428Lrhjwigauodq njx pharmacologic agt spxSameer Al Start: 12-13-2024 End: 62-06-7071Dioudbfmngaf ophthalmic imaging retinaSameer Al ikiStart: 51-60-0317Wfhjm 1mg Pre-filled SyringeSameer Al Start: 12-13-2024 End: 35-61-0824Efmxn 1mg Pre-filled SyringeSameer Al [facility] MDStart: 12-13-2024 End: 50-86-3650Mowxosthkrrg njx pharmacologic agt spxSameer Al ShikiStart: 08-30-2024 End: 15-54-0894Wqxay 1mg Pre-filled SyringeSameer Al [facility] MDStart: 08-30-2024 Eylea 1mg Pre-filled SyringeSameer Al ShikiStart: 08-30-2024 End: 36-53-1391Rqyljkfvwrjn njx pharmacologic agt spxSameer Al [facility] MDStart: 06-07-2024 End: 34-22-6386Zmxuv loclzd lesion retina 1/> sess pcSameer Al [facility] MDStart: 05-31-2024 End: 45-78-2227Yalwk 1mg Pre-filled SyringeSameer Al [facility] MDStart: 05-31-2024 Eylea 1mg Pre-filled SyringeSameer Al [facility] healthcareStart: 05-31-2024 End: 54-31-7323Bbhgmlqmrlj angrph w/multiframe i&r uni/biSameer Al Elbert DIXON Start: 11-42-0221Ybokgn Photos No ChargeSameer Al [facility]: 05-31-2024 End: 62-12-7359Zcdqvw Photos No Charge BilateralSameer Al elma MDStart: 05-31-2024 End: 20-16-7180Pooljfuclnet njx pharmacologic agt spxSameer Al [facility] MDStart: 04-30-2024 End: 50-40-1142Vxpyjinpsbqx ophthalmic imaging retinaSameer Al [facility] MDStart: 01-20-2024 End: 79-09-6410Wlxcostwultq ophthalmic imaging retinaSameer Al [facility] MDStart: 01-20-2024 End: 56-72-8720Inksz 1mg Pre-filled SyringeSameer Al [facility] MDStart: 01-20-2024 End: 09-29-3711Cbduedzsvbnl njx pharmacologic agt spxSameer Al [facility] MDStart: 10-21-2023 End: 85-97-0473Uudrmytyowe injectionSameer Al [facility] MDStart: 10-21-2023 End: 28-75-6134Bdrlrxyfmfxl ophthalmic imaging retinaSameer Al [facility] MDStart: 10-21-2023 End: 24-75-0675Gtjbuluqrlrx njx pharmacologic agt spxSameer Al [facility] MDStart: 08-26-2023 End: 35-34-7382Eymnzdhiaean ophthalmic imaging retinaSameer Al [facility] MDStart: 08-26-2023 End: 39-23-3193Srbfv 1mg Pre-filled SyringeSameer Al [facility] MDStart: 08-26-2023 End: 04-89-7404Llgqlw Photos No Charge BilateralSameer Igor Boswell MDStart: 08-26-2023 End: 66-21-2509Kkdbbkhlkcei njx pharmacologic agt spxSameer Al Elbert MDStart: 08-21-2023 End: 51-28-3114Xqtdrankuvws ophthalmic imaging retinaSameer Al Elbert MDStart: 07-29-2023 End: 33-70-6266Pkntvxdvjua injectionSameer Al Elbert MDStart: 07-29-2023 End: 42-70-7706Mfzsyunrxhoo ophthalmic imaging retinaSameer Al Bryonelma MDStart: 07-29-2023 End: 40-46-5910Jcopdfbwclyz njx pharmacologic agt spxSameer Al Bryonelma MDStart: 32-07-8868PbvunjwzjxbcotrqkcmoyppvynRA Anirudh Lr Work Phone: Start: 43-82-9315JQF screeningDR GRAHAM DORAN . Comment on above:Performed By: #### CBC #### [facility] [address] [place] [address] Dr. De Leon ChangStart: 10-14-2022 End: 80-13-3032Wyiystuvrqwg ophthalmic imaging retinaSameer Al Elbert MDStart: 06-24-2022 End: 47-87-3160Cmwwnukhdxyo ophthalmic imaging retinaSameer Al Elbert MDStart: 03-04-2022 End: 91-47-1587Vapeppalfrsg ophthalmic imaging retinaSameer Al Randyelma MDStart: 01-07-2022 End: 87-47-7340Woqfgpbpleqe ophthalmic imaging retinaSameer Al Randyelma MDStart: 12-10-2021 End: 32-11-7328Oqwvdodkjkop ophthalmic imaging optic nerveSameer Igor Elbert MD Start: 12-10-2021 End: 22-64-9148Zqeaw 1mg Pre-filled SyringeSameer Igor Boswell MDStart: 12-10-2021 End: 82-11-6318Ecnjtqgshtct njx pharmacologic agt spxSameer Al Elbert MDStart: 11-21-2021 End: 87-99-6794Sqzgwxlwvsqb ophthalmic imaging retinaSameer Al Elbert MDStart: 11-21-2021 End: 46-10-9976Fvxso Sample DrugSameer Al terence MDStart: 11-21-2021 End: 24-75-1943Qmohbribwvch njx pharmacologic agt spxSameer Al Elbert MDStart: 10-31-2021 End: 83-55-9383Kdspeybuwtet ophthalmic imaging retinaSameer Al Elbert MDStart: 10-15-2021 End: 05-97-6400Ulefyhxuvgeo ophthalmic imaging retinaSameer Al Elbert MDStart: 06-06-2021 End: 99-63-4631Gbahqtamjgok ophthalmic imaging retinaSameer Al Elbert MDStart: 03-07-2021 End: 40-30-8368Eeuxxukucjhh ophthalmic imaging retinaSameer Al Elbert MDStart: 03-07-2021 End: 52-12-4198Khjxh 1mg Pre-filled SyringeSamevirgilio Pacheco MDStart: 03-07-2021 End: 30-19-2251Qolmxmdpggrc njx pharmacologic agt spxSameer Al Elbert MDStart: 12-06-2020 End: 79-08-1726Kqjpxofpmrft ophthalmic imaging retinaSameer Al Elbert MDStart: 09-06-2020 End: 88-83-7070Anhxuszzvzza ophthalmic imaging retinaSameer Al Elbert MDStart: 09-06-2020 End: 97-74-0382Znmzu 1mg Pre-filled SyringeSamevirgilio Pacheco MDStart: 09-06-2020 End: 61-72-8282Twljosfbahrr njx pharmacologic agt spxSameer Al Elbert MDStart: 07-12-2020 End: 23-37-6646Rjtfnshlokod ophthalmic imaging retinaSameer Al Elbert MDStart: 07-12-2020 End: 71-30-8397Rukcv 1mg Pre-filled SyringeSameer Al Elbert MDStart: 07-12-2020 End: 62-14-2224Fyezeuwbfoak njx pharmacologic agt spxSameer Al Elbert MDStart: 01-05-2020 End: 37-56-1112Tzvrnnfntztb ophthalmic imaging retinaSameer Al Elbert MDStart: 10-06-2019 End: 84-21-6021Xggkjtbztewf ophthalmic imaging retinaSameer Al Elbert MDStart: 07-07-2019 End: 82-53-8637Izjkgapnamt injectionSameer Al Elbert MDStart: 07-07-2019 End: 38-08-4756Xibieojwjoal ophthalmic imaging retinaSameer Al Elbert MDStart: 07-07-2019 End: 64-60-3300Xfipacqrbndr njx pharmacologic agt spxSameer Al Elbert MDStart: 04-14-2019 End: 17-56-9201Xqwfjymgtyro ophthalmic imaging retinaSameer Al Elbert MDStart: 02-17-2019 End: 81-58-8287Apbfkhlnoprn ophthalmic imaging retinaSameer Al Elbert MDStart: 01-06-2019 End: 91-94-6617Npqzlqmfzht injectionSameer Al Elbert MDStart: 01-06-2019 End: 25-86-7385Yxfgadyzwndm ophthalmic imaging retinaSameer Al Elbert MDStart: 01-06-2019 End: 34-73-2021Oyrnxzusdnst njx pharmacologic agt spxSameer Al Elbert MDStart: 10-07-2018 End: 53-51-0675Nwteoxhbewzx ophthalmic imaging retinaSameer Al Elbert MDStart: 08-05-2018 End: 05-07-5167Fnkqdnonblhs ophthalmic imaging retinaSameer Al Elbert MDStart: 04-15-2018 End: 55-74-8661Tioxcbmtxvo injectionSameer Al Elbert MDStart: 04-15-2018 End: 03-84-6630Hyiiyuquzmfo ophthalmic imaging retinaSameer Al Elbert MDStart: 04-15-2018 End: 02-62-2721Cqgjcvmphepg njx pharmacologic agt spxSameer Al Elbert MDStart: 02-18-2018 End: 19-29-6150Pgyfadwavci injectionSameer Al Elbert MDStart: 02-18-2018 End: 83-18-3685Xpeatebfpidd ophthalmic imaging retinaSameer Al Elbert MDStart: 02-18-2018 End: 29-78-6889Dabczdcbwkwi njx pharmacologic agt spxSameer Al [facility] MDStart: 01-14-2018 End: 84-56-1714Ryxslyuxtme injectionSameer Al [facility] MDStart: 01-14-2018 End: 61-97-2523Sxpzdjgqkpbo ophthalmic imaging retinaSameer Al [facility] MDStart: 01-14-2018 End: 89-96-6366Kwisdfbykmpx njx pharmacologic agt spxSameer Al [facility] MDStart: 12-10-2017 End: 35-99-7897Xqbishkmdwe injectionSameer Al [facility] MDStart: 12-10-2017 End: 27-08-4575Obondapqgmrn ophthalmic imaging retinaSameer Al [facility] MDStart: 12-10-2017 End: 79-89-2118Fzdpldnyaksb njx pharmacologic agt spxSameer Al [facility] MDStart: 11-19-2017 End: 03-09-3222Cqrqzuhvhlyo ophthalmic imaging retinaSameer Al [facility] MDStart: 10-14-2017 End: 44-56-0845Rpyjwjiqcwq injectionSameer Al [facility] MDStart: 10-14-2017 End: 89-88-9532Ihdlplfrodul ophthalmic imaging retinaSameer Al [facility] MDStart: 10-14-2017 End: 07-99-7277Ifghurgxlxzb njx pharmacologic agt spxSameer Al [facility] MDStart: 09-10-2017 End: 19-13-0406Ewlokmhppwdv ophthalmic imaging retinaSameer Al [facility] MDStart: 09-10-2017 End: 01-33-2682Qmzkbtxakdld njx pharmacologic agt spxSameer Al [facility] MDStart: 09-10-2017 End: 95-26-0947Vsxlaksfptxk biologicsSameer Al [facility] MDStart: 07-30-2017 End: 58-24-6814Vkbhnmhezag injectionSameer Al [facility] MDStart: 07-30-2017 End: 35-81-4730Erhupdqgnoov ophthalmic imaging retinaSameer Al [facility] MDStart: 07-30-2017 End: 56-30-6435Yuhmzmvfrmqn njx pharmacologic agt spxSameer Al [facility] MDStart: 06-23-2017 End: 93-54-1681Lyaivjzrdna injectionSameer Al [facility] MDStart: 06-23-2017 End: 30-58-1081Qrjwqsjwazaa ophthalmic imaging retinaSameer Al [facility] MDStart: 06-23-2017 End: 06-87-9530Tbrklwnqydma njx pharmacologic agt spxSameer Al [facility] MDStart: 05-13-2017 End: 70-72-8973Axtwyoiwlcdt ophthalmic imaging retinaSameer Al [facility] MDStart: 05-13-2017 End: 02-73-0036Cnbunymyyzbb njx pharmacologic agt spxSameer Al [facility] MDStart: 05-13-2017 End: 67-18-5722Ggenpwgfboch biologicsSameer Al [facility] MDStart: 04-02-2017 End: 60-75-0735Qsxppokdnyi injectionSameer Al [facility] MDStart: 04-02-2017 End: 64-69-6648Oxovkyvsngym ophthalmic imaging retinaSameer Al [facility] MDStart: 04-02-2017 End: 68-06-1410Hsvpfagdvrlh njx pharmacologic agt spxSameer Al [facility] MDStart: 02-12-2017 End: 05-39-9583Mphkuvhlaci injectionSameer Al [facility] MDStart: 02-12-2017 End: 81-38-8235Exgaastetwxl ophthalmic imaging retinaSameer Al [facility] MDStart: 02-12-2017 End: 41-20-3872Mzugjuznfbzc njx pharmacologic agt spxSameer Al [facility] MDStart: 01-08-2017 End: 77-37-4550Ihiyccxsqqh injectionSameer Al [facility] MDStart: 01-08-2017 End: 99-88-0469Umnfsxsgkpvz ophthalmic imaging retinaSameer Al [facility] MDStart: 01-08-2017 End: 42-69-8557Wcnmexmqyvub njx pharmacologic agt spxSameer Al [facility] MDStart: 23-14-5553Gmitnebcqwwfsn screeningAnirudh Lr Other Start: 12-11-2016 End: 20-26-7164Mrgeuovnrxn injectionSameer Al [facility] MDStart: 12-11-2016 End: 22-91-0986Cblnicmgwuwh ophthalmic imaging retinaSameer Al Shweiki MDStart: 12-11-2016 End: 02-83-9503Cxrpkrrlutkb njx pharmacologic agt spxSlaisha Pacheco MDStart: 38-97-0190Xyeleimbvoav cholecystostomyGraham DORAN Start: 13-27-4629VonnworidacSmrrqkd WATERS Comment on above:01/2023Start: 09-08-2011 Esophagogastroduodenoscopy gastric outlet reductionMacielsaint joseph mount sterlingalexi DORAN Start: 56-01-5113Ihycbi of left inguinal herniaMacielsaint joseph mount sterlingalexi DORAN Depression screeningBenjamin Ball Other Depression screeningBenjamin Ball Other History of operative procedure on kneeGraham DORAN VasectomyGraham DORAN Plan of Treatment DateCare ActivityDetailAuthorStart: 81-94-6677Rhjjs, Marvin 16 Week IO EYL (2-3) OS/ OCTCVP Physicians Work Phone: Start: 07-67-5569Bwexofpwln about tobacco useTobacco cessation counselingCVP PhysiciansStart: 14-33-9094Gemsdukzqi about tobacco use Tobacco cessation counselingCVP PhysiciansStart: 81-28-9997Jzryc, Marvin 14 Weeks EYL OS(2-3) OCTCVP Physicians Work Phone: Start: 32-85-3425Qghpfmc referralMagruder Memorial Hospital Work Phone: Start: 99-43-3366Jhlkqwqcd[facility] [address] [facility] Start: 30-61-8198Rqkmbpu cessation educationTobacco cessation counselingCVP PhysiciansStart: 39-93-0085Rpfloft EducationHealth Information for You: MedlinePl~[facility] Work Phone: Start: 57-70-1504Mtmanbz EducationHealth Information for You: [employer]~[facility] Work Phone: Start: 78-46-4530Memhxvg EducationHealth Information for You: [employer]line[employer]~[facility] Work Phone: Patient EducationColon [facility] Work Phone: Patient [facility] Work Phone: Renal function 1999 panel - Serum [facility] 1999 panel [facility] Serum or [facility]Renal function 1999 panel - Serum or [facility] HamiltonRenal function 1999 panel - Serum or [facility] Immunizations Immunization DateImmunizationNotesCare ProviderFacilityNEGATED: Highlighted row has not occurred!08-35-9609ixzihsnjt virus vaccine, unspecified formulation Graham DORAN [facility] HospitalNEGATED: Highlighted row has not occurred!17-64-6975skourktuy virus vaccine, live, attenuated, for intranasal useGraham DORAN [facility] Payers DatePayer CategoryPayerPolicy [id number] Health [id number] [id number] 2.1.128581.3.5[id number] 2.0.1.583365.3.57[id number] 2..1.495193.3.57[id number] 2.16.840.1.561233.3.57[id number] 2.16.840.1.515116.3.579.2.83729-87-9144Fxykrtq1844499 2.16.840.1.406503.3.579.2.14[id number] 2.16.840.1.322795.3.57[id number] 2.16.840.1.480121.3.57[id number] 2.16.840.1.218844.3.579.[id number] 2..840.1.696863.3.579.2.67047-18-1352Yachhbs69101402 2.16.840.1.849291.3.579.2.37003-28-9210Tohfdyb30349638 2.16.840.1.760455.3.579.2.16806-89-2634Zitcgao9712372 2.16.840.1.974183.3.579.2.516215-79-6768Zggufwr3444866 2.16.840.1.597724.3.579.2.284681-61-5511Swbzqcd7850722 2.16.840.1.024580.3.579.2.994470-99-4099Moknopr280656 2.16.840.1.753865.3.579.2.348930-99-9182Xgzxsbx293329 2.16.840.1.727470.3.579.2.837397-09-9224Mdqctta855821 2.0.1.464473.3.579.2.198237-09-0198Fbbygcz573296 2.840.1.460490.3.579.2.1347Private Health InsuranceAetna Mcr PFFS Non Pt MEBJCPNP [id number] 2.840.1.904307.[id number] 2.840.1.247955.3.579.2.531 [id number] 2.0.1.910550.3.579.2.531 Social History DateTypeDetailFacilitySex Assigned At [facility]art: 11-25-2022 End: 52-02-5671Mzyhecb smoking statusNever smoked tobacco (finding)[facility] HospitalToday [facility] smoking statusNever [facility] BellueStart: 31-48-9932Tdh Assigned At [facility] Limatart: 07-19-2024 End: 96-49-1251GclPheq (finding)[facility] Akrontart: 19-49-6578Vntblm-related behavior (observable entity)Caffeine Use DetailsCVP PhysiciansSexual OrientationOhio Valley Surgical Hospital Start: 60-85-7158Mwplsar use and exposureNon-Smoking Tobacco Use DetailsCVP PhysiciansNEGATED: Highlighted rowStart: 08-30-2024 End: 62-24-9580Ltrpuxz smoking status NHISUnknown if ever smokedCVP Physicians NEGATED: Highlighted rowAlcohol intakeAlcohol Use DetailsCVP PhysiciansNEGATED: Highlighted rowStart: 42-05-3698Kbsudez of tobacco useCurrent non-smokerCVP Physicians Medical Equipment Procedure CodeEquipment CodeEquipment Original TextEquipment IdentifierDates Repair, hernia, inguinal, with meshAbdominal hernia surgical mesh, synthetic polymer, non-[id number] FDAStart: 04-10-2023 Goals DatePatient GoalDesired Activity/State Functional Status XesqUmwfvythmpNxepjdNjqybcjn77-14-1065Qsoqmwjdca StatusN/AExec[facility]03-20-2023Functional StatusN/A[facility] Clinical Notes 09-20-2022 to 06-27-2025 Note Date & ZgwcCrepMnkrxpux72-43-6477 Evaluation note* Diagnosis Onset Date Resolution Status Admit Date Benign prostatic hyperplasia with lower urinary tract symptoms acuteOctober 2024 9:17amCeliac diseaseacuteOctober 2024 9:17am Chronic kidney diseaseacuteOctober 2024 9:17amChronic venous insufficiency of lower extremityacuteOctober 2024 9:17amDiplopiaacuteOctober 2024 9:17amGAD (generalized anxiety disorder)acuteOctober 2024 9:17amOther osteoporosis without current pathological fractureacuteOctober 2024 9:17am Primary hypertensionacuteOctober 2024 9:17am [facility] Work Phone: 1(262) 314-604307-28-2025 Evaluation note* Type Assessment Date assessment Trib rtnl vein occlusion, left e ye, with macular edema impression Trib rtnl vein occlu maribel, left eye, with macular edema: H34.8320. Let assessment Diplopia impression Diplopia: H53.2 [facility] Work Phone: 1(456) 293-625507-28-2025 History of Present illness Narrative* Encounter Date [...] flashes, floaters. denies any vision changes The pa tiejanine denies any vision changes in the right [...] eye. reports no visual changes The maciel benoitjanine reports no visual changes in the right [...] a retinal occlusion in the left eye. [facility] Work Phone: 1(908) 413-899007-28-2025 Instructions* Date Instruction Additional Infor mation Impression/Plan [...] edema Return in 1 month wi th Khari Bates MD for follow up, OCT, [...] degeneration, bilateral Return in 6 months w ith Khari [...] macular edema Return in 4 months w esther Bates for follow up [...] PCP. Appropriate follow up with primary eye healthcare administration intern was recommended. Related to Trib rtnl vein [...] PCP. Appropriate follow up with primary eye healthcare administration intern was recommended. Related to Trib rtnl vein [...] vein occlusion, left eye, with macular edema Feb-06-2018 Follow up - Return i n 4-[address] Bates for follow up exam with OCT and possible Avastin. Ide-55-0555Mqrwipseae/Plan - Regular follow up appointments with the patient's comprehensive eye doctor were recommended to monitor the patients cataract for progression. Referral for surgical intervention is not indicated at this time. Related to Age-related nuclear cataract, kntyyzastQfg-58-9698Ozqriaghlq/Plan - There is no evidence of a retinal tear, break, or detachment.Related to Vitreous degeneration, uokezajykIzz-95-8868Oxjksrpjvv/Plan - RIGHT EYE: Stable Macular Pucker was noted on examination today and discussed with the patient. The pucker is not inducing vision loss or distortion that is severe enough to warrant surgical risk. 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 Bates for follow up exam with OCT and possible Avastin.Related to Trib rtnl vein occlusion, left eye, with macular tyewwIby-92-6538Jozdtd up - Return in [address] Bates for follow up exam with OCT and possible Avastin.Related to Trib rtnl vein occlusion, left eye, with macular optboFmt-12-3303Fjugocsaid/Plan - Regular follow up appointments with the patient's comprehensive eye doctor were recommended to monitor the patients cataract for progression. Referral for surgical intervention is not indicated at this time.Related to Age-related nuclear cataract, bilateral /Plan - There is no evidence of a retinal tear, break, or detachment.Related to Vitreous degeneration, iocdthtwjYkv-19-2948Hhlycwphrr/Plan - RIGHT EYE: Stable Macular Pucker was noted on examination today and discussed with the patient. The pucker is not inducing vision loss or distortion that is severe enough to warrantsurgical risk. I have counseled for continued observation at the current level of vision, and the patient will l let us know if there is any progressive vision loss or worsening metamorphopsia.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, right sphYkz-54-2011Tdkxmfhqfr/Plan - Branch Retinal Vein Occlusion with improving macular edema was noted on examination today and explained to the patient. Continued anti-VEGF treatment was recommended to reduce the macular edema and hopefully improve vision. Risks, benefits, and alternatives were reviewed. The offlabel status of Avastin was discussed. The use [...] PCP. 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 The pucker is not inducing vision loss or distortion that is severe enough to warrant surgicalrisk. 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 Patient feels his vision has declined therefore we will continue antiVEGF treatment today instead of next week. Risks, benefits, and alternatives were reviewed. 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 Referral for surgical intervention is not indicated at this time. Related to Age-related nuclear cataract, ytydicflsZum-24-2508Jfunniwdpz/Plan - Posterior vitreous detachment was noted on examination today and explained to thepatient. There is no evidence of a retinal tear, break, or detachment. Patient instructed to call the office immediately if any symptoms noted.Related to Vitreous degeneration, xvnqilqwdKqg-14-2331Hvissu up - Return in 4-[address] Bates for follow up exam, OCT and possible Avastin. Impression/Plan - Regular follow up appointments with the patient's comprehensive eye doctor were recommended to monitor the patients cataract for progression. Referral for surgical intervention is not indicated at this time. Related to Age-related nuclear cataract, kpjyndcbzEoi-42-4796Vypfhitpfz/Plan - Posterior vitreous detachment was noted on examination today and explained to thepatient. There is no evidence of a retinal tear, break, or detachment. Patient instructed to call the office immediately if any symptoms noted.Related to Vitreous degeneration, nsyrgwscrJsk-98-5536Ilqemtceiz/Plan - RIGHT EYE: Macular Pucker was noted on examination today and explained to the patient. The pucker is not inducing vision loss or distortion that is severe enough to warrant surgicalrisk. 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 Improving s/p Avastin - see plan #1.Related to Retinal hemorrhage, left eye Xmq-15-9388Gsaxfspjgk/Plan - Branch Retinal Vein Occlusion with mild macular edema was noted on examination today and explained to the patient. Patient feels his vision has declined therefore we will continue antiVEGF treatment today instead of next week. Risks, benefits, and alternatives were reviewed. 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 Bates for INJ AVN OS w/OCT.Related to Trib rtnl vein occlusion, left eye, with macular sfzprByj-14-0298Aavtqc up - Return in 4-[address] Bates for INJ AVN OS w/OCT.Related to Trib rtnl vein occlusion, left eye, with macular fcdunLrx-13-0654Wnwmubbwnu/Plan - Regular follow up appointments with the patient's comprehensive eye doctor were re commended to monitor the patients cataract for progression. Referral for surgical intervention is not indicated at this time.Related to Age-related nuclear cataract, vgqraqzyeQza-43-6323Jgkxcoejni/Plan - Posterior vitreous detachment was noted on examination today and explained to thepatient. There is no evidence of a retinal tear, break, or detachment. Patient instructed to call the office immediately if any symptoms noted.Related to Vitreous degeneration, dlmqauvazHrw-43-9308Wrqevglplf/Plan - LEFT EYE: Branch Retinal Vein Occlusion with persistent [...] from a retinal standpoint and with the PCP.Related to Trib rtnl vein occlusion, left eye, with macular ogoibYhd-41-7691Qvphacpgnl/Plan - RIGHT EYE: Macular Pucker was noted on examination today and explained to the patient. The pucker is not inducing vision loss or distortion that is severe enough to warrant surgicalrisk. 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 Referral for surgical intervention is not indicated at this time.Related to Age-related nuclear cataract, nfpyyclqwChi-50-6067Cupethnjwj/Plan - Posterior vitreous detachment was noted on examination today and explained to thepatient. There is no evidence of a retinal tear, break, or detachment. Patient instructed to call the office immediately if any symptoms noted.Related to Vitreous degeneration, bilateral Pif-99-7910Qeurugzofw/Plan - LEFT EYE: Branch Retinal Vein Occlusion with macular [...] PCP. 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 The pucker is not inducing vision loss or distortion that is severe enough to warrant surgicalrisk. I have counseled for observation at the current level of vision, and the patient will l let us know if there is any progressive vision loss or worsening metamorphopsia.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, right rckWqi-80-8917Iusebrauzt/Plan - Intraretinal hemorrhages secondary to BRVO - see plan #1.Related to Retinal hemorrhage, left tojUyf-09-6833- 1 mo for INJ AVN OS w/OCTRelated to Tributary (branch) retinal vein occlusion, left eye, with macular putraZxm-99-6380Osuchp in [address] Bates for follow up exam with OCT and possible Avastin OS.Related to Trib rtnl vein occlusion, left eye, with macular gophnWsg-55-4342Ofgkzjznkf/Plan - LEFT: Branch Retinal Vein Occlusion with macular edema [...] and received an intravitreal injection of Avastin today.The patient tolerated the procedure well and has been instructed to call immediately with severe pain or visual changes. The ocular and systemic benefits of blood pressure control were discussed as well as follow up compliance from a retinal standpoint and with the PCP. Appropriate follow up with primary eye healthcare administration intern was recommended.Related to Trib rtnl vein occlusion, left eye, with macular hnzesVbu-20-4384Wttzdi up - Return in [address] Bates for follow up exam with OCT and possible Avastin OS.Related to Trib rtnl vein occlusion, left eye, with macular lnaufNzh-28-8828Regudazojb/Plan - Intraretinal hemorrhages secondary to BRVO - see plan #1.Related to Retinal hemorrhage, left alrYhg-98-4388Iuojtwpvir/Plan - Regular follow up appointments with the patient's comprehensive eye doctor were recommended to monitor the patients cataract for progression. Referral for surgical intervention is not indicated at this time.Related to Age-related nuclear cataract, ogpcailqqYmp-57-6719 Impression/Plan - Posterior vitreous detachment was noted on examination today and explained to thepatient. There is no evidence of a retinal tear, break or detachment. Patient instructed to call the office immediately if any symptoms noted.Related to Vitreous degeneration, ztywhsbntYcd-07-1149Bdifxjslbo/Plan - RIGHT: Macular Pucker was noted on examination today and explained to the patient. The pucker is not inducing vision loss or distortion that is severe enough to warrant surgical risk. 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 Take htwj-qir-japttjj and prescription medicines only as told by [...] symptoms do not get (more content not included)...[facility]04-10-2025 Evaluation note* Diagnosis Onset Date Resolution Status Admit Date Benign prostatic hyperplasia with lower urinary tract symptoms acuteApril 2024 12:45pmCKD (chronic kidney disease) stage 3, GFR 30-59 ml/minacuteApril 2024 12:45pmHypertensive chronic kidney disease with stage 1 through stage 4 chronic kiacuteApril 2024 12:45pmPernicious anemia acuteApril 2024 12:45pmRetinal vein occlusion of right eyeacuteApril 2024 12:45pmVitamin D deficiencyacuteApr2024 12:45pmSquamous cell carcinoma of skin of left handnoneactiveApr2024 12:45pmBenign prostatic hyperplasia with lower urinary tract symptomsacuteApril 2024 9:28amCeliac diseaseacuteApril 2024 9:28amChronic kidney diseaseacuteApril 2024 9:28amChronic venous insufficiency of lower extremityacuteApril 2024 9:28amGAD (generalized anxiety disorder)acuteApril 2024 9:28amPrimary hypertensionacuteApril 2024 9:28amMedicare annual wellness visit, subsequentnoneactiveApril 2024 9:28am [facility] Work Phone: 1(860) 526-475204-10-2025 Evaluation note* Diagnosis Onset Date Resolution Status Admit Date Benign prostatic hyperplasia with lower urinary tract symptoms acuteApril 2024 12:45pmCKD (chronic kidney disease) stage 3, GFR 30-59 ml/minacuteApril 2024 12:45pmHypertensive chronic kidney disease with stage 1 through stage 4 chronic kiacuteApr2024 12:45pmPernicious anemia acuteApril 2024 12:45pmRetinal vein occlusion of right eyeacuteApril 2024 12:45pmVitamin D deficiencyacuteApril 2024 12:45pmSquamous cell carcinoma of skin of left handnoneactiveApr2024 12:45pmBenign prostatic hyperplasia with lower urinary tract symptomsacuteApril 2024 9:28amCeliac diseaseacuteApril 2024 9:28amChronic kidney diseaseacuteApril 2024 9:28amChronic venous insufficiency of lower extremityacuteApril 2024 9:28amGAD (generalized anxiety disorder)acuteApril 2024 9:28amPrimary hypertensionacuteApril 2024 9:28amMedicare annual wellness visit, subsequentnoneactiveApril 2024 9:28amDysuriadeletedMay 2024 2:39pm Chronic kidney diseaseacuteMay 2024 11:44amGAD (generalized anxiety disorder)acuteMay 2024 11:44amMCI (mild cognitive impairment)acuteMay 2024 11:44amPrimary hypertensionacuteMay 2024 11:44am [facility] Work Phone: 1(360) 674-819604-10-2025 Evaluation note* Diagnosis Onset Date Resolution Status Admit Date Benign prostatic hyperplasia with lower urinary tract symptoms acuteApril 2024 12:45pmCKD (chronic kidney disease) stage 3, GFR 30-59 ml/minacuteApril 2024 12:45pmHypertensive chronic kidney disease with stage 1 through stage 4 chronic kiacuteApril 2024 12:45pmPernicious anemia acuteApril 2024 12:45pmRetinal vein occlusion of right eyeacuteApril 2024 12:45pmVitamin D deficiencyacuteApril 2024 12:45pmSquamous cell carcinoma of skin of left handnoneactiveApril 2024 12:45pmBenign prostatic hyperplasia with lower urinary tract symptomsacuteApril 2024 9:28amCeliac diseaseacuteApril 2024 9:28amChronic kidney diseaseacuteApril 2024 9:28amChronic venous insufficiency of lower extremityacuteApril 2024 9:28amGAD (generalized anxiety disorder)acuteApril 2024 9:28amPrimary hypertensionacuteApril 2024 9:28amMedicare annual wellness visit, subsequentnoneactiveApril 2024 9:28amDysuriadeletedMay 2024 2:39pmGAD (generalized anxiety disorder)acuteMay 2024 11:44amMCI (mild cognitive impairment)acuteMay 2024 11:44amPrimary hypertensionacuteMay 2024 11:44am [facility] Work Phone: 1(916) 811-393012-24-2024 Evaluation note* Diagnosis Onset Date Resolution Status Admit Date Benign prostatic hyperplasia with lower urinary tract symptoms acuteDecember 2023 8:51amCeliac diseaseacuteDecember 2023 8:51am Chronic kidney diseaseacuteDecember 2023 8:51amChronic venous insufficiency of lower extremityacuteDecember 2023 8:51amGAD (generalized anxiety disorder)acuteDecember 2023 8:51amPrimary hypertensionacute August 31, 2024 8:51am [facility] Work Phone: 1(622) 232-405012-23-2024 Evaluation note* Type Assessment Date assessment Trib rtnl vein occlusion, left e ye, with macular edema impression Trib rtnl vein occlu maribel, left eye, with macular edema: H34.8320. Let [facility] Work Phone: 1(680) 139-249912-23-2024 History of Present illness Narrative* Encounter Date [...] the left eye. reports stable vision The patilo t reports stable vision in both eyes [...] flashes, floaters. denies any vision changes The pa gurjit denies any vision changes in the right [...] the left eye. [facility] Work Phone: 1(416) 694-359512-23-2024 Instructions* Date Instruction Additional Infor mation Impression/Plan [...] vein occlusion, left eye, with macular edema Feb-13-2024 Impression/Plan Related to Trib rtnl vein occlusion, [...] edema Return in 1 month wi th Khari Bates MD for follow up, OCT, [...] Return in 7-8 week(s ) with Khari Btaes MD for follow up, OCT, possible Eylea [...] PCP. Appropriate follow up with primary eye healthcare administration intern was recommended. Related to Trib rtnl vein [...] PCP. Appropriate follow up with primary eye healthcare administration intern was recommended. Related to Trib rtnl vein [...] up exam with OCT and possible Avastin. Kon-88-3377Rsfxgd in [address] Bates for follow up exam with OCT and possible Avastin.Related to Trib rtnl vein occlusion, left eye, with macular roezrOuc-73-4509Cthiqf up - Return in [address] Bates for follow up exam with OCT and possible Avastin.Related to Trib rtnl vein occlusion, left eye, with macular bpbkiRiy-77-6567Xufevekpgr/Plan - Regular follow up appointments with the patient's comprehensive eye doctor were recommended to monitor the patients cataract for progression. Referral for surgical intervention is not indicated at this time.Related to Age-related nuclear cataract, bilateral Ene-24-0995Fsiwwgwbch/Plan - There is no evidence of a retinal tear, break, or detachment.Related to Vitreous degeneration, plmwwtvzaGnm-35-8918Cgetwulufe/Plan - RIGHT EYE: Stable Macular Pucker was noted on examination today and discussed with the patient. The pucker is not inducing vision loss or distortion that is severe enough to warrantsurgical risk. 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 Continued anti-VEGF treatment was recommended to reduce the macular edema and hopefully improve vision. Risks, benefits, and alternatives were reviewed. The offlabel status of Avastin was discussed. The use [...] PCP. Appropriate follow up with primary eye healthcare administration intern was recommended.Related to Trib rtnl vein occlusion, left eye, with macular tcmdaLsw-13-6048Kupcoe in Return in 1-2 Related to Trib rtnl vein occlusion, left eye, with macular jbinvKgn-53-7168 Impression/Plan - RIGHT EYE: Macular Pucker was noted on examination today and explained to the patient. The pucker is not inducing vision loss or distortion that is severe enough to warrant surgicalrisk. 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 Patient feels his vision has declined therefore we will continue antiVEGF treatment today instead of next week. Risks, benefits, and alternatives were reviewed. 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 Referral for surgical intervention is not indicated at this time. Related to Age-related nuclear cataract, grpbfvmcnBpz-26-2428Wpvjatzygn/Plan - Posterior vitreous detachment was noted on examination today and explained to thepatient. There is no evidence of a retinal tear, break, or detachment. Patient instructed to call the office immediately if any symptoms noted.Related to Vitreous degeneration, yberwgvkkPbc-27-6696Atgibv up - Return in 4-[address] Bates for follow up exam, OCT and possible Avastin.Oct Impression/Plan - Regular follow up appointments with the patient's comprehensive eye doctor were recommended to monitor the patients cataract for progression. Referral for surgical intervention is not indicated at this time. Related to Age-related nuclear cataract, bzlvvlnbhTob-13-9637Usmkqabnfx/Plan - Posterior vitreous detachment was noted on examination today and explained to thepatient. There is no evidence of a retinal tear, break, or detachment. Patient instructed to call the office immediately if any symptoms noted.Related to Vitreous degeneration, cgumvjvfjJgb-60-5092Adhlapxtdr/Plan - RIGHT EYE: Macular Pucker was noted on examination today and explained to the patient. The pucker is not inducing vision loss or distortion that is severe enough to warrant surgicalrisk. 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 Improving s/p Avastin - see plan #1.Related to Retinal hemorrhage, left eye Sjf-24-0209Wmlwjpimnv/Plan - Branch Retinal Vein Occlusion with mild macular edema was noted on examination today and explained to the patient. Patient feels his vision has declined therefore we will continue antiVEGF treatment today instead of next week. Risks, benefits, and alternatives were reviewed. 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 Bates for INJ AVN OS w/OCT.Related to Trib rtnl vein occlusion, left eye, with macular owdsrXoi-19-0924Wytyrdgttv/Plan - Intraretinal hemorrhages secondary to BRVO. Improving s/p Avastin - see plan #1.Related to Retinal hemorrhage, left cpmQlx-14-8120Roeveibowy/Plan - RIGHT EYE: Macular Pucker was noted on examination today and explained to the patient. The pucker is not inducing vision loss or distortion that is severe enough to warrant surgicalrisk. I have counseled for observation at the current level of vision, and the patient will l let us know if there is any progressive vision loss or worsening metamorphopsia.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, right eye Yws-23-8473Hjyamlituw/Plan - Regular follow up appointments with the patient's comprehensive eye doctor were recommended to monitor the patients cataract for progression. Referral for surgical intervention is not indicated at this time. Related to Age-related nuclear cataract, tbiitxgmxZcf-28-9418Olsmzndknk/Plan - Posterior vitreous detachment was noted on examination today and explained to thepatient. There is no evidence of a retinal tear, break, or detachment. Patient instructed to call the office immediately if any symptoms noted.Related to Vitreous degeneration, buxnormrbXed-18-9837Dzrhmargjo/Plan - LEFT EYE: Branch Retinal Vein Occlusion with persistent [...] from a retinal standpoint and with the PCP.Related to Trib rtnl vein occlusion, left eye, with macular uefreQfr-98-0428Dgkdqi up - Return in 4-[address] 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 Appr opriate follow up with primary eye healthcare administration intern was recommended.Related to Trib rtnl vein occlusion, left eye, with macular mlftpWhw-57-0138Bchuugplki/Plan - Regular follow up appointments with the patient's comprehensive eye doctor were recommended to monitor the patients cataract for progression. Referral for surgical intervention is not indicated at this time.Related to Age-related nuclear cataract, hburifuztEcg-69-2997Wfshciitrv/Plan - Posterior vitreous detachment was noted on examination today and explained to thepatient. There is no evidence of a retinal tear, break, or detachment. Patient instructed to call the office immediately if any symptoms noted.Related to Vitreous degeneration, puqjirtpzKmy-96-9981Silvij up - Return in 6-8 weeks for FU, OCT, poss AVN OS. Related to Trib rtnl vein occlusion, left eye, with macular xfsugGyk-44-3977 Impression/Plan - RIGHT EYE: Macular Pucker was noted on examination today and explained to the patient. The pucker is not inducing vision loss or distortion that is severe enough to warrant surgicalrisk. I have counseled for observation at the current level of vision, and the patient will l let us know if there is any progressive vision loss or worsening metamorphopsia.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, right psnBai-25-6854Hqlolrtpwn/Plan - Intraretinal hemorrhages secondary to BRVO - see plan #1.Related to Retinal hemorrhage, left [id number]- 1 mo for INJ AVN OS w/OCTRelated to Tributary (branch) retinal vein occlusion, left eye, with macular [id number] in [address] Bates for follow up exam with OCT and possible Avastin OS.Related to Trib rtnl vein occlusion, left eye, with macular lqrmmBxm-[id number]/Plan - LEFT: Branch Retinal Vein Occlusion with macular edema [...] and received an intravitreal injection of Avastin today.The patient tolerated the procedure well and has been instructed to call immediately with severe pain or visual changes. The ocular and systemic benefits of blood pressure control were discussed as well as follow up compliance from a retinal standpoint and with the PCP. Appropriate follow up with primary eye healthcare administration intern was recommended.Related to Trib rtnl vein occlusion, left eye, with macular ieolsZqt-[id number] up - Return in [address] Bates for follow up exam with OCT and possible Avastin OS.Related to Trib rtnl vein occlusion, left eye, with macular dsftoTqm-[id number]/Plan - Intraretinal hemorrhages secondary to BRVO - see plan #1.Related to Retinal hemorrhage, left cweNjt-[id number]/Plan - Regular follow up appointments with the patient's comprehensive eye doctor were recommended to monitor the patients cataract for progression. Referral for surgical intervention is not indicated at this time.Related to Age-related nuclear cataract, xazwkrcgrJhr-[id number] Impression/Plan - Posterior vitreous detachment was noted on examination today and explained to thepatient. There is no evidence of a retinal tear, break or detachment. Patient instructed to call the office immediately if any symptoms noted.Related to Vitreous degeneration, kmaigicydVar-[id number]/Plan - RIGHT: Macular Pucker was noted on examination today and explained to the patient. The pucker is not inducing vision loss or distortion that is severe enough to warrant surgical risk. I have counseled for observation at the current level of vision, and the patient will l let us know if there is any progressive vision loss or worsening metamorphopsia.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, right eye [facility] Work Phone: 1(916) 612-528610-24-2024 Evaluation note* Diagnosis Onset Date Resolution Status Admit Date Benign prostatic hyperplasia with lower urinary tract symptoms acuteOct2023 1:41pmCKD (chronic kidney disease) stage 3, GFR 30-59 ml/minacuteOct2023 1:41pmHypertensive chronic kidney disease with stage 1 through stage 4 chronic kiacuteOctober 2023 1:41pmPernicious anemiaacuteOctober 2023 1:41pmRetinal vein occlusion of right eyeacute July 01, 2024 1:41pmVitamin D deficiencyacuteOct2023 1:41pm Benign prostatic hyperplasia with lower urinary tract symptomsacuteDecember 2023 8:51amCeliac diseaseacuteDecember 2023 8:51amChronic kidney diseaseacuteDecember 2023 8:51amChronic venous insufficiency of lower extremityacuteDecemb2023 8:51amGAD (generalized anxiety disorder)acute August 31, 2024 8:51amPrimary hypertensionacuteDecemb2023 8:51am [facility] Work Phone: 1(595) 320-471308-26-2024 Evaluation note* Diagnosis Onset Date Resolution Status Admit Date Benign prostatic hyperplasia with lower urinary tract symptoms acuteAugust 2023 9:29amCeliac diseaseacuteAugust 2023 9:29amChronic kidney diseaseacuteAugust 2023 9:29amChronic venous insufficiency of lower extremityacuteAugust 2023 9:29amGAD (generalized anxiety disorder)acute May 03, 2024 9:29amPrimary hypertensionacuteAugust 2023 9:29amBenign prostatic hyperplasia with lower urinary tract symptomsacuteOctn[facility] 20[facility] 1:41pmCKD (chronic kidney disease) stage 3, GFR 30-59 ml/minacuteOctober 2023 1:41pmHypertensive chronic kidney disease with stage 1 through stage 4 chronic [facility]uteOctn[facility] 2023 1:41pmPernicious anemiaacuteOctnorton [facility] 2023 1:41pmRetinal vein occlusion of right eyeacuteOctnorton [facility] 2023 1:41pmVitamin D deficiencyacuteOctnorton [facility] 2023 1:41pm [facility] Work Phone: 1(387) 629-513304-15-2024 Hospital Discharge instructions Patient Education 12/22/2023 15:16:35 [...] urethra. Follow these instructions at home: Take ubpg-wpp-vgfaphf and prescription medicines only as told by [...] provider. Document Revised: 03/13/2022 Document Reviewed: 03/13/2022 [employer] Patient Education 2022 [employer]. Follow Up Care 11/25/2022 09:03:23 With:ANDREEA DIXON, Graham Ruby, URL Address: [facility] [address] [place] [address]- [phone] When: Unknown Comments:1 yr w/ PSA [facility] 03-22-2024 Evaluation note* Diagnosis Onset Date Resolution Status Pernicious anemia acuteChronic venous insufficiency of lower extremityacutePrimary hypertension acuteStage 3a chronic kidney disease (CKD)[facility] Work Phone: 1(626) 599-652001-15-2024 Evaluation note* Encounter Date Diagnosis Assessment Notes Treatment Notes Treatment Clinical Notes Sep, Pernicious anemia (ICD-10 - D51. 0) [facility] Other 01-12-2024 Evaluation note* Encounter Date Diagnosis Assessment Notes Treatment Notes Treatment Clinical Notes Sep, Primary hypertension (ICD-10 - I 10) This patient is instructed to consume a healthy, low-fat, low-salt diet. They are also encouraged to continue exercise to achieve/maintain a normal BMI. Sep,Other osteoporosis without current pathological fracture (ICD-10 - M81.8)Healthy diet, weight bearing exercises. Ca and Vit D supplements. Discussed treatment options, hesitant to start medication. Sep,GAD (generalized anxiety disorder) (ICD-10 - F41.1)Healthy diet and exercise. Continue Lexapro. Continue Ativan: 1/2 1-2 x daily. - helping calm his anxiety and improve his sleep quality Sep,ernicious anemia (ICD-10 - D51.0) [facility] Other 12-13-2023 Evaluation note* Encounter Date Diagnosis Assessment Notes Treatment Notes Treatment Clinical Notes Aug, Pernicious anemia (ICD-10 - D51. 0) Aug,rimary hypertension (ICD-10 - I10)This patient is instructed to consume a healthy, low-fat, low-salt diet. They are also encouraged to continue exercise to achieve/maintain a normal BMI. Patient is instructed on home BP measurements: - rest for 5 minutes w/o talking- positioned w/ feeton floor and arm supported- average best 2/3 readings w/ goal < 135/85 Aug,AD (generalized anxiety disorder) (ICD-10 - F41.1)Healthy diet and exercise. Relaxation stressed. Initiate SSRI and Lorazepam - caution w/ use of Lorazepam as it may cause sedation Recheck in 1 mo [facility] Other 11-20-2023 Evaluation note* Encounter Date Diagnosis Assessment Notes Treatment Notes Treatment Clinical Notes Jul, Primary hypertension (ICD-10 - I 10) [facility] Other 11-13-2023 Evaluation note* Encounter Date Diagnosis Assessment Notes Treatment Notes Treatment Clinical Notes Jul, Pernicious anemia (ICD-10 - D51. 0) [facility] Other 09-11-2023 Evaluation note* Encounter Date Diagnosis Assessment Notes Treatment Notes Treatment Clinical Notes May, Pernicious anemia (ICD-10 - D51. 0) [facility] Other 09-08-2023 Evaluation note* Encounter Date Diagnosis Assessment Notes Treatment Notes Treatment Clinical Notes May, Other osteoporosis w ithout current pathological fracture (ICD-10 - M81.8) [facility] Other 08-10-2023 Evaluation note* Encounter Date Diagnosis Assessment Notes Treatment Notes Treatment Clinical Notes Apr, Primary hypertension (ICD-10 - I 10) This patient is instructed to consume a healthy, low-fat, low-salt diet. They are also encouraged to continue exercise to achieve/maintain a normal BMI. Patient is instructed on home BP measurements: - rest for 5 minutes w/o talking- positioned w/ feeton floor and arm supported- average best 2/3 readings w/ goal < 135-85 Restart Benazepril - recheck BMP in 2 wks to check for hyperkalemia Apr,Stage 3a chronic kidney disease (ICD-10 - N18.31)The patient is instructed on adequate control of hypertension and diabetes, if appropriate. They are also educated on the associated risks of NSAIDs and PPI use with kidney disease. They were instructed on adequate fluid balance and to avoid dehydration. Apr,eliac disease (ICD-10 - K90.0)Continue gluten free diet. DEXA scan ordered f/u GI Apr,ernicious anemia (ICD-10 - D51.0)Monthly B12 injections Patient meets criteria for vitamin B12 deficiency/insufficiency. We discussed the etiology of this deficiency and, which is related to his Celiac diseae. Discussed natural sources that can be obtained in the diet including meat, poultry, fish etc. Encouraged vitamin B12 supplement by monthly IM injections Apr,ure hypercholesterolemia (ICD-10 - E78.00)Instructed on diet and exercise with continued statin therapy.Discussed the beneficial effects of lo wering cholesterol in reducing the risk for cerebrovascular and cardiovascular disease. Apr,hronic idiopathic constipation (ICD-10 - K59.04)Diet instructions, push fluids, increase fiber Amitiza as needed Discussed constipation and IBS-C today. Discussed increasing fiber in the diet routinely and how increased fluid intake will improve stools/bowel movements as well. Discussed stool softeners for maintenance as well as Metamucil. [facility] Other 08-07-2023 Evaluation note* Encounter Date Diagnosis Assessment Notes Treatment Notes Treatment Clinical Notes Apr, Celiac disease (ICD-10 - K90.0) Patient advised to avoid gluten Apr,Encounter for screening for osteoporosis (ICD-10 - Z13.820) [facility] Other 06-05-2023 Evaluation note* Encounter Date Diagnosis Assessment Notes Treatment Notes Treatment Clinical Notes Feb, Pernicious anemia (ICD-10 - D51. 0) [facility] Other 05-31-2023 Evaluation note* Encounter Date Diagnosis Assessment Notes Treatment Notes Treatment Clinical Notes January, Pernicious anemia (ICD-10 - D51. 0) Continue monthly B12 injections January,eliac disease (ICD-10 - K90.0)Continue Gluten free diet f/u GI January,hronic idiopathic constipation (ICD-10 - K59.04)Miralax and Amitiza didn't help. Using Supp every 72 hours as needed. Push fluids [facility] Other 05-26-2023 Evaluation note* Encounter Date Diagnosis Assessment Notes Treatment Notes Treatment Clinical Notes January, Celiac disease (ICD-10 - K90.0) [facility] Other 05-01-2023 Evaluation note* Encounter Date Diagnosis Assessment Notes Treatment Notes Treatment Clinical Notes January, Celiac disease (ICD-10 - K90.0) Will proceed with EGD/Colonoscopy to confirm Celiac disease. January,onstipation, unspecified constipation type (ICD-10 - K59.00)Patient states that he has around 1 bowel movement every 4 days since november 2022. Does use a laxative as needed. Recomended patient to use OTC Miralax to avoid constipation.Titrate dosage as needed. January,loating (ICD-10 - R14.0)Gas has improved since starting Celiac diet. January,hange in bowel habits (ICD-10 - R19.4) January,Iron deficiency anemia (ICD-10 - D50.9) [facility] Other 04-27-2023 Evaluation note* Encounter Date Diagnosis Assessment Notes Treatment Notes Treatment Clinical Notes Dec, Pernicious anemia (ICD-10 - D51. 0) [facility] Other 04-12-2023 Evaluation note* Encounter Date Diagnosis Assessment Notes Treatment Notes Treatment Clinical Notes Dec, Essential hypertension (ICD-10 - I10) This patient is instructed to consume a healthy, low-fat, low-salt diet. They are also encouraged to continue exercise to achieve/maintain a normal BMI. Dec,Left lower quadrant abdominal pain (ICD-10 - R10.32)Increase fiber, increase fluids CT to r/o obstructing mass Dec,Unexplained weight loss (ICD-10 - R63.4)Increase calories, increase dietary protein r/o thyroid disease and diabetes Dec,ernicious anemia (ICD-10 - D51.0)Continue B12 injections Dec,eliac disease (ICD-10 - K90.0)Continue Gluten free diet Dec,onstipation, unspecified constipation type (ICD-10 - K59.00) Increase fluids, fiber and schedule CT scan to r/o obstructing mass [facility] Other 03-27-2023 Evaluation note* Encounter Date Diagnosis Assessment Notes Treatment Notes Treatment Clinical Notes Nov, Pernicious anemia (ICD-10 - D51. 0) [facility] Other 03-27-2023 Evaluation note* Encounter Date Diagnosis Assessment Notes Treatment Notes Treatment Clinical Notes Nov, Celiac disease (ICD-10 - K90.0) Recheck IgA levels. Gluten free diet Nov,nemia, unspecified type (ICD-10 - D64.9)Hold Fe for now. Recheck CBC and B12,FA,Fe Nov,Fecal smearing (ICD-10 - R15.1)Decrease dietary fruits Start Metamucil Nov,Stage 3a chronic kidney disease (ICD-10 - N18.31)The patient is instructed on adequate control of hypertension and diabetes, if appropriate. They are also educated on the associated risks of NSAIDs and PPI use with kidney disease. They were instructed on adequate fluid balance and to avoid dehydration. [facility] Other 03-20-2023 Hospital Discharge instructions Patient Education [...] urethra. Follow these instructions at home: Take ahcq-bav-clpnjji and prescription medicines only as told by [...] 08/25/2006 Document Revised: 07/20/2019 Document Reviewed: 09/29/2017 [employer] Patient Education 2020 [employer]. Follow Up Care 11/23/2021 08:51:05 With:ANDREEA DIXON, Graham Ruby, URL Address: [facility] [address] [place] [address]- When: Unknown [facility] 02-23-2023 Evaluation note* Encounter Date Diagnosis Assessment Notes Treatment Notes Treatment Clinical Notes Oct, Pernicious anemia (ICD-10 - D51. 0) [employer] Other 01-23-2023 Evaluation note* Encounter Date Diagnosis Assessment Notes Treatment Notes Treatment Clinical Notes Sep, Pernicious anemia (ICD-10 - D51. 0) [employer] Other 01-20-2023 Evaluation note* Encounter Date Diagnosis Assessment Notes Treatment Notes Treatment Clinical Notes Sep, Anemia, unspecified type (ICD-10 - D64.9) [employer] Other 01-13-2023 Evaluation note* Encounter Date Diagnosis Assessment Notes Treatment Notes Treatment Clinical Notes Sep, Essential hypertension (ICD-10 - I10) This patient is instructed to consume a healthy, low-fat, low-salt diet. They are also encouraged to continue exercise to achieve/maintain a normal BMI. Sep,ure hypercholesterolemia (ICD-10 - E78.00)Diet and exercise with continued statin therapy. Sep,Stage 3a chronic kidney disease (CKD) (ICD-10 - N18.31)The patient is instructed on adequate control of hypertension and diabetes, if appropriate. They are also educated on the associated risks of NSAIDs and PPI use with kidney disease. They were instructed on adequate fluid balance and to avoid dehydration. Sep,ernicious anemia (ICD-10 - D51.0) Sep,Multiple pulmonary nodules determined by computed tomography of lung (ICD-10 - R91.8)CT surveillance over 2 years revealed no significant change and determined to be benign. Sep,Sensorineural hearing loss (SNHL), unspecified laterality (ICD-10 - H90.5)f/u Audiology, avoid use of Qtips. Sep,eliac disease (ICD-10 - K90.0)Gluten free diet, monitor for vitamin deficiencies. Patient noncompliant w/ diet. Sep,Medicare annual wellness visit, subsequent (ICD-10 - Z00.00) Personalized health [...] reviewed and amended by provider signed below. Sep,nnual physical exam (ICD-10 - Z00.00) Sep,High risk medication use (ICD-10 - Z79.899) [facility] Other Consult note* Clinical Note Date No Information [facility] Work Phone: Discharge summary* Clinical Note Date No Information [facility] Work Phone: Evaluation + Plan note Future Appointments Appointment Date:11/28/2023 08:30:00 AM Scheduled Provider:Graham DORAN MD Location:[facility] Appointment Type:URO Office Visit Diagnostic Tests Pending * PSA Total 11/25/22 [facility] evaluation + Plan note Future Appointments Appointment Date:12/27/2024 09:45:00 AM Scheduled Provider:Graham DORAN MD Location:[facility] Appointment Type:URO Office Visit Diagnostic Tests Pending * PSA Total 12/22/23 [facility] evaluation + Plan note Future Appointments Appointment Date:12/27/2024 09:45:00 AM Scheduled Provider:Graham DORAN MD Location:[facility] Appointment Type:URO Office Visit [facility] evaluation noteNo InformationN[employer] Other evalutssja noteNo assessment information available [facility] Work Phone: evaluation note* Diagnosis Onset Date Resolution Status Pernicious anemia acuteChronic venous insufficiency of lower extremityacutePrimary hypertension acute [facility] Work Phone: evaluation note* Diagnosis Onset Date Resolution Status Pernicious anemia acuteChronic venous insufficiency of lower extremityacutePrimary hypertension acuteBenign prostatic hyperplasia with lower urinary tract symptomsacuteCeliac diseaseacuteChronic kidney diseaseacuteChronic venous insufficiency of lower extremityacuteGAD (generalized anxiety disorder)acutePrimary hypertensionacute Medicare annual wellness visit, subsequentnoneactive [facility] Work Phone: evaluation note* Diagnosis Onset Date Resolution Status Chronic venous insufficiency of lower ex tremity acutePrimary hypertensionacuteBenign prostatic hyperplasia with lower urinary tract symptomsacuteCeliac diseaseacuteChronic kidney diseaseacuteChronic venous insufficiency of lower extremityacuteGAD (generalized anxiety disorder)acute Primary hypertensionacuteMedicare annual wellness visit, [facility]: [facility]* Diagnosis Onset Date Resolution Status Benign prostatic hyperplasia with lower urinary tract symptoms acuteCeliac diseaseacuteChronic kidney diseaseacuteChronic venous insufficiency of lower extremityacuteGAD (generalized anxiety disorder)acutePrimary hypertensionacuteMedicare annual wellness visit, [facility]non[facility] Work Phone: evaluation note* Diagnosis Onset Date Resolution Status Benign prostatic hyperplasia with lower urinary tract symptoms acuteCeliac diseaseacuteChronic kidney diseaseacuteChronic venous insufficiency of lower extremityacuteGAD (generalized anxiety disorder)acutePrimary hypertensionacuteMedicare annual wellness visit, subsequentnoneactiveBenign prostatic hyperplasia with lower urinary tract symptomsacuteChronic kidney [id number] osteoporosis without current pathological fractureacutePernicious anemiaacuteRetinal vein occlusion of right eyeacute [facility] Work Phone: Evaluation note* Diagnosis Onset Date Resolution Status Benign prostatic hyperplasia with lower urinary tract symptoms acuteChronic kidney rvlwsbnnqfwySJF-[id number] anemiaacute Retinal vein occlusion of right eyeacuteBenign prostatic hyperplasia with lower urinary tract symptomsacuteChronic kidney wprwoxbictpxMHO-[id number] Pernicious anemiaacuteRetinal vein occlusion of right eyeacute [facility] Work Phone: Evaluation note* Diagnosis Onset Date Resolution Status Benign prostatic hyperplasia with lower urinary tract symptoms acuteChronic kidney hgzelbvmzhciLEV-[id number] anemiaacute Retinal vein occlusion of right eyeacuteBenign prostatic hyperplasia with lower urinary tract symptomsacuteChronic kidney wynjaphdlkpuTMY-[id number] Pernicious anemiaacuteRetinal vein occlusion of right eyeacuteVitamin D deficiencyacute [facility] Work Phone: Evaluation note* Diagnosis Onset Date Resolution Status Benign prostatic hyperplasia with lower urinary tract symptoms acuteChronic kidney kszxknvdgyioFSS-[id number] anemiaacute Retinal vein occlusion of right eyeacuteBenign prostatic hyperplasia with lower urinary tract symptomsacuteChronic kidney mauadgcxzhraAEY-[id number] Pernicious anemiaacuteRetinal vein occlusion of right eyeacuteVitamin D deficiencyacuteBenign prostatic hyperplasia with lower urinary tract symptoms acuteCeliac diseaseacuteChronic kidney diseaseacuteChronic venous insufficiency of lower extremityacuteGAD (generalized anxiety disorder)acutePrimary hypertensionacute [facility] Work Phone: Evaluation note* Diagnosis Onset Date Resolution Status Benign prostatic hyperplasia with lower urinary tract symptoms acuteChronic kidney cdupezdlvmpyRWA-[id number] anemiaacute Retinal vein occlusion of right eyeacuteVitamin D deficiencyacuteBenign prostatic hyperplasia with lower urinary tract symptomsacuteCeliac diseaseacute Chronic kidney diseaseacuteChronic venous insufficiency of lower extremityacute KEVIN (generalized anxiety disorder)acutePrimary hypertensionacute [facility] Work Phone: Evaluation note* Diagnosis Onset Date Resolution Status Benign prostatic hyperplasia with lower urinary tract symptoms acuteCeliac diseaseacuteChronic kidney diseaseacuteChronic venous insufficiency of lower extremityacuteGAD (generalized anxiety disorder)acutePrimary hypertensionacuteBenign prostatic hyperplasia with lower urinary tract symptoms acuteCKD (chronic kidney disease) stage 3, GFR 30-59 ml/minacute [id number] anemiaacuteRetinal vein occlusion of right eye acuteVitamin D deficiencyacute [facility] Work Phone: Evaluation note* Diagnosis Onset Date Resolution Status Admit Date Benign prostatic hyperplasia with lower urinary tract symptoms acuteApril 2024 12:45pmCKD (chronic kidney disease) stage 3, GFR 30-59 ml/minacuteApril 2024 12:45pmHypertensive chronic kidney disease with stage 1 through stage 4 chronic kiacuteApril 2024 12:45pmPernicious anemia acuteApril 2024 12:45pmRetinal vein occlusion of right eyeacuteApril 2024 12:45pmVitamin D deficiencyacuteApril 2024 12:45pmSquamous cell carcinoma of skin of left handnoneactiveApril 2024 12:45pm [facility] Work Phone: Evaluation note* Diagnosis Onset Date Resolution Status Admit Date Benign prostatic hyperplasia with lower urinary tract symptoms acuteOctober 2024 9:17amCeliac diseaseacuteOctober 2024 9:17am Chronic kidney diseaseacuteOctober 2024 9:17amChronic venous insufficiency of lower extremityacuteOctober 2024 9:17amGAD (generalized anxiety disorder)acuteOctober 2024 9:17amOther osteoporosis without current pathological fractureacuteOctober 2024 9:17amPrimary hypertensionacute October 2024 9:17am [facility] Work Phone: History and physical note* Clinical Note Date No Information [facility] Work Phone: History general Narrative - Reported* Type Description Date Medical History 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 Medical HistoryBody mass index (BMI) of 25.0 to 29.9Medical HistoryChest pain Medical HistoryEssential hypertensionMedical HistoryMalaiseMedical History FatigueMedical HistoryPure hypercholesterolemiaMedical HistoryDepression screeningMedical HistoryCeliac diseaseMedical HistoryRight-sided chest wall pain Medical HistoryGoutMedical HistoryBenign prostatic hyperplasia with lower urinary tract symptomsMedical HistoryNocturiaMedical HistoryPernicious anemia Medical HistoryAcute constipationMedical HistoryLeft inguinal herniaMedical HistoryMultiple pulmonary nodules determined by computed tomography of lung Medical HistoryHypertensive chronic kidney disease with stage 1 through stage 4 chronic kidney disease, or unspecified chronic kidney diseaseMedical History Stage 3a chronic kidney disease (CKD)Medical HistorySensorineural hearing loss (SNHL), unspecified lateralityMedical HistoryTinnitus, bilateralMedical History Biliary dyskinesiaMedical HistoryRetinal vein occlusion of left eye, unspecified retinal veinSurgical [id number] ImbxaiuEXH76/2019 Surgical VikdwxmJNVNPWCVFDT32/2019Surgical HistoryCATARACT ECTRACTION, BILATERAL Hospitalization HistorySEE ABOVE [facility] Other History general Narrative - Reported* Type Description Date Medical History 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 Medical HistoryBody mass index (BMI) of 25.0 to 29.9Medical HistoryChest pain Medical HistoryEssential hypertensionMedical HistoryMalaiseMedical History FatigueMedical HistoryPure hypercholesterolemiaMedical HistoryDepression screeningMedical HistoryCeliac diseaseMedical HistoryRight-sided chest wall pain Medical HistoryGoutMedical HistoryBenign prostatic hyperplasia with lower urinary tract symptomsMedical HistoryNocturiaMedical HistoryPernicious anemia Medical HistoryAcute constipationMedical HistoryLeft inguinal herniaMedical HistoryMultiple pulmonary nodules determined by computed tomography of lung Medical HistoryHypertensive chronic kidney disease with stage 1 through stage 4 chronic kidney disease, or unspecified chronic kidney diseaseMedical History Stage 3a chronic kidney disease (CKD)Medical HistorySensorineural hearing loss (SNHL), unspecified lateralityMedical HistoryTinnitus, bilateralMedical History Biliary dyskinesiaMedical HistoryRetinal vein occlusion of left eye, unspecified retinal veinSurgical [id number] HduzdnlQPQ39/2019 Surgical YofinipNBGBFVOVRGG75/2019Surgical HistoryCATARACT ECTRACTION, BILATERAL Surgical HistoryEGD w/ bx01/2023Surgical HistoryColonoscopy w/ polypectomy01/2023 Hospitalization HistorySEE ABOVE [facility] Other [facility] general Narrative - ReportedNort [employer] Other [facility]ism[facility] general Narrative - Reported* Type Description Date Medical History 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 Medical HistoryBody mass index (BMI) of 25.0 to 29.9Medical HistoryChest pain Medical HistoryEssential hypertensionMedical HistoryMalaiseMedical History FatigueMedical HistoryPure hypercholesterolemiaMedical HistoryDepression screeningMedical HistoryCeliac diseaseMedical HistoryRight-sided chest wall pain Medical HistoryGoutMedical HistoryBenign prostatic hyperplasia with lower urinary tract symptomsMedical HistoryNocturiaMedical HistoryPernicious anemia Medical HistoryAcute constipationMedical HistoryLeft inguinal herniaMedical HistoryMultiple pulmonary nodules determined by computed tomography of lung Medical HistoryHypertensive chronic kidney disease with stage 1 through stage 4 chronic kidney disease, or unspecified chronic kidney diseaseMedical History Stage 3a chronic kidney disease (CKD)Medical HistorySensorineural hearing loss (SNHL), unspecified lateralityMedical HistoryTinnitus, bilateralMedical History Biliary dyskinesiaMedical HistoryRetinal vein occlusion of left eye, unspecified retinal veinSurgical [id number] CnpuemxHBA58/2019 Surgical JqrwvaqBSFHWZVIKHQ34/2019Surgical HistoryCATARACT ECTRACTION, BILATERAL Surgical HistoryEGD w/ bx01/2023Surgical HistoryColonoscopy w/ polypectomy01/2023 Surgical HistoryLeft inguinal hernia04/2023Hospitalization HistorySEE ABOVE [facility] Other [facility] general Narrative - Reported* Type Description Date Medical History 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 Medical HistoryBody mass index (BMI) of 25.0 to 29.9Medical HistoryChest pain Medical HistoryEssential hypertensionMedical HistoryMalaiseMedical History FatigueMedical HistoryPure hypercholesterolemiaMedical HistoryDepression screeningMedical HistoryCeliac diseaseMedical HistoryRight-sided chest wall pain Medical HistoryGoutMedical HistoryBenign prostatic hyperplasia with lower urinary tract symptomsMedical HistoryNocturiaMedical HistoryPernicious anemia Medical HistoryAcute constipationMedical HistoryLeft inguinal herniaMedical HistoryMultiple pulmonary nodules determined by computed tomography of lung Medical HistoryHypertensive chronic kidney disease with stage 1 through stage 4 chronic kidney disease, or unspecified chronic kidney diseaseMedical History Stage 3a chronic kidney disease (CKD)Medical HistorySensorineural hearing loss (SNHL), unspecified lateralityMedical HistoryTinnitus, bilateralMedical History Biliary dyskinesiaMedical HistoryRetinal vein occlusion of left eye, unspecified retinal veinMedical HistoryOsteoporosisSurgical [id number] Surgical GycbydsPUP35/2019Surgical UktvpzhITKDWMVVQVS17/2019Surgical History CATARACT ECTRACTION, BILATERALSurgical HistoryEGD w/ bx01/2023Surgical History Colonoscopy w/ polypectomy01/2023Surgical HistoryLeft inguinal hernia04/2023 Hospitalization HistorySEE ABOVE [facility] Other Hospital course Narrative No data available for this section [facility] Hospital Discharge instructionsAmbulatory Orders* Referral to Nephrology Location: None [facility] Work Phone: Hospital Discharge instructions No data available for this section [facility] Progress note No data available for this section [facility] progress note* Clinical Note Date No Information [facility] Work Phone: Reason for referral (narrative)* Reason *Waiting for appt Referral to confirm Celiac disease Diagnosis 1 Celiac disease (K90. 0) Referral Organization [facility] Adeline praker Referring Provider First Name Anirudh Referring Provider Last Name Adeline Referring Provider Specialty Internal Me dicine Referred Organization [facility] Referred Provider Zeeshan Joe Referred Address [address],[id number] Referred Provider Specialty Gastroentero logy Referral Priority Routine General Notes Sanam Guido 11:00:10 AM >RECEIVED TODAY, SENT [facility] Other Reason for referral (narrative)* Reason For Referral No Information [facility] Work Phone: Reason for referral (narrative)No reason for referral information availableMagruder [facility] Work Phone: Summary Purpose Family History Relationship Condition Age at Onset Recorded Date/T jj father Carcinoma of peritoneum Unknown Not SpecifiedHypertensionUnknown Relationship Condition Age at Onset Recorded Date/T jj father Carcinoma of peritoneum Unknown Not SpecifiedHypertensionUnknownfatherHeart diseaseUnknown Relationship Condition Age at Onset Recorded Date/T jj father Carcinoma of peritoneum Unknown Heart diseaseUnknownNot SpecifiedHypertensionUnknown Relationship Condition Age at Onset Recorded Date/T jj father Carcinoma of peritoneum Unknown Heart diseaseUnknownmotherHypertensionUnknown Family Member Type Diagnosis Age At Onset [...] Up B-12 SHOT swelling, increased weight B-12 SHOTReason for VisitPernicious anemia Chronic venous insufficiency of lower extremity Primary hypertension Stage 3a chronic kidney disease (CKD) Chief Complaint B-12 SHOT swelling, increased weight B-12 SHOT [id number] for VisitPernicious anemia Chronic venous insufficiency of lower extremity Primary hypertension Chief Complaint B-12 SHOT swelling, increased weight B-12 SHOT B12 Medicare WellnessReason for VisitPernicious anemia Chronic venous insufficiency of lower extremity Primary hypertension Benign prostatic hyperplasia with lower urinary tract symptoms Celiac disease Chronic kidney disease Chronic venous insufficiency of lower extremity KEVIN (generalized anxiety disorder) Primary hypertension Medicare annual wellness visit, subsequent Chief Complaint swelling, increased weight B-12 SHOT B12 Medicare Wellness [id number] for VisitChronic venous insufficiency of lower extremity Primary hypertension Benign prostatic hyperplasia with lower urinary tract symptoms Celiac disease Chronic kidney disease Chronic venous insufficiency of lower extremity KEVIN (generalized anxiety disorder) Primary hypertension Medicare annual wellness visit, subsequent Chief Complaint B12 Medicare Wellness B12 B12 ShotReason for VisitBenign prostatic hyperplasia with lower urinary tract symptoms Celiac disease Chronic kidney disease Chronic venous insufficiency of lower extremity KEVIN (generalized anxiety disorder) Primary hypertension Medicare annual wellness visit, subsequent Chief Complaint B12 Medicare Wellness B12 B12 Shot RENAL CKDReason for VisitBenign prostatic hyperplasia with lower urinary tract symptoms Celiac disease Chronic kidney disease Chronic venous insufficiency of lower extremity KEVIN (generalized anxiety disorder) Primary hypertension Medicare annual wellness visit, subsequent Benign prostatic hyperplasia with lower urinary tract symptoms Chronic kidney disease [id number] Other osteoporosis without current pathological fracture Pernicious anemia Retinal vein occlusion of right eye Chief Complaint B12 B12 Shot RENAL CKD RENAL 2 WK F/UReason for VisitBenign prostatic hyperplasia with lower urinary tract symptoms Chronic kidney disease [id number] Pernicious anemia Retinal vein occlusion of right eye Benign prostatic hyperplasia with lower urinary tract symptoms Chronic kidney disease [id number] Pernicious anemia Retinal vein occlusion of right eye Chief Complaint B12 B12 Shot RENAL CKD RENAL 2 WK F/U B12 shotReason for VisitBenign prostatic hyperplasia with lower urinary tract symptoms Chronic kidney disease [id number] Pernicious anemia Retinal vein occlusion of right eye Benign prostatic hyperplasia with lower urinary tract symptoms Chronic kidney disease [id number] Pernicious anemia Retinal vein occlusion of right eye Vitamin D deficiency Chief Complaint B12 Shot RENAL CKD RENAL 2 WK F/U B12 shot 4 month check upReason for VisitBenign prostatic hyperplasia with lower urinary tract symptoms Chronic kidney disease [id number] Pernicious anemia Retinal vein occlusion of right eye Benign prostatic hyperplasia with lower urinary tract symptoms Chronic kidney disease [id number] Pernicious anemia Retinal vein occlusion of right eye Vitamin D deficiency Benign prostatic hyperplasia with lower urinary tract symptoms Celiac disease Chronic kidney disease Chronic venous insufficiency of lower extremity KEVIN (generalized anxiety disorder) Primary hypertension Chief Complaint B12 Shot RENAL CKD RENAL 2 WK F/U B12 shot 4 month check up B 12 ShotReason for VisitBenign prostatic hyperplasia with lower urinary tract symptoms Chronic kidney disease [id number] Pernicious anemia Retinal vein occlusion of right eye Benign prostatic hyperplasia with lower urinary tract symptoms Chronic kidney disease [id number] Pernicious anemia Retinal vein occlusion of right eye Vitamin D deficiency Benign prostatic hyperplasia with lower urinary tract symptoms Celiac disease Chronic kidney disease Chronic venous insufficiency of lower extremity KEVIN (generalized anxiety disorder) Primary hypertension Chief Complaint RENAL 2 WK F/U B12 shot 4 month check up B 12 Shot b12 shotReason for VisitBenign prostatic hyperplasia with lower urinary tract symptoms Chronic kidney disease [id number] Pernicious anemia Retinal vein occlusion of right eye Vitamin D deficiency Benign prostatic hyperplasia with lower urinary tract symptoms Celiac disease Chronic kidney disease Chronic venous insufficiency of lower extremity KEVIN (generalized anxiety disorder) Primary hypertension Chief Complaint B12 shot 4 month check up B 12 Shot b12 shot RENAL 3 MONTH F/UReason for VisitBenign prostatic hyperplasia with lower urinary tract symptoms Celiac disease Chronic kidney disease Chronic venous insufficiency of lower extremity KEVIN (generalized anxiety disorder) Primary hypertension Benign prostatic hyperplasia with lower urinary tract symptoms CKD (chronic kidney disease) stage 3, GFR 30-59 ml/min [id number] Pernicious anemia Retinal vein occlusion of right [...] 45pm Medicare Wellness/B12 shot January 04 9:28am Reason for Visit Admit Date Benign [...] B12 Shot April 28, 2025 8: 21am Chief Complaint Admit Date B12 shot March 10, 2025 8:34a m B12 Shot April 28, 2025 8: 21am b12 shot May 30, 2025 8:33am Chief Complaint Admit Date B12 Shot April 28, 2025 8: 21am b12 shot May 30, 2025 8:33am 6 month f/u June 27, 2025 9 :17am Reason for Visit Admit Date Benign prostatic hyperplasia with lower urinary tract symptoms June 27, 2025 9:17am Celiac disease June 27, 2025 9 :17am Chronic kidney disease June 27 9:17am Chronic venous insufficiency of lower ex tremity June 27, 2025 9:17am KEVIN (generalized anxiety disorder) Octob er 2024 9:17am Other osteoporosis without current patho logical fracture June 27, 2025 9:17am Primary hypertension June 27, 2025 9:17am Chief Complaint Admit Date B12 Shot April [...] 9:17am Primary hypertension June 27, 2025 9:17am Additional Source Comments REASON FOR VISIT (unrecogniz ed section and content) WELLNESS MBLab ResultsB-12 S hot mbmedicationB-12 ShotB-12 ShotDigestive System IssuesCeliac resultsReferralMultiple IssuesBloating/GasIncreased PainB-12 ShotCONSULT FOR CELIAC DISEASESENDING LABS1 week follow upB-12 ShotmessageLab resultsNo InformationPATIENT IS HERE FOR FOLLOW UP TO DISCUSS CELIAC DISEASE6 month Follow up -b12Lab ResultsGASTRO CONSULTNo InformationB-12 ShotRefillDEXA beocxiwJUXFHQ59VfcpviGqusibilpt QuestionHigh BP1 month Follow up1 month Follow upB-12 SHOT Patient Care team informatio n (unrecognized section and content) Team Status: Active Member Role Status Dates Anirudh Lr DO Primary Care Provider Active Team Status: Inactive Member Role Status Dates Anirudh Lr DO Primary Care Provide r, Attending Provider Active Start: 2024 End: 2024 Team Status: Inactive Member Role Status Renato Lr DO Primary Care Provide r, Attending Provider Active Start: November 30, 2024 End: November 30, 2024 Team Status: Active Member Role Status Renato Lr DO Primary Care Provider Active Start: December 06, 2024 Billy Mata MDAttending ProviderActiveStart: December 06, 2024 Team Status: Inactive Member Role Status Dates Anirudh Lr DO Primary Care Provider Active Start: December 16, 2024 End: December 16bdmike Mata MDAttending ProviderActiveStart: December 16, 2024 End: December 16, 2024 Team Status: Inactive Member Role Status Renato Lr DO Primary Care Provide r, Attending Provider Active Start: January 04, 2025 End: January 04, 2025 Team Status: Inactive Member Role Status Renato Lr DO Primary Care Provider Active Start: January 13, 2025 End: January 13, 2025Tricia Weiss MDAttending ProviderActiveStart: January 13, 2025 End: January 13, 2025 Team Status: Active Member Role Status Renato Lr DO Primary Care Provide r, Attending Provider Active Start: October 14, 2024 Team Status: Inactive Member Role Status Renato Lr DO Primary Care Provide r, Attending Provider Active Start: September 20, 2024 End: September 20, 2024 Team Status: Active Member Role Status Renato Lr DO Primary Care Provide r, Attending Provider Active Start: September 02, 2024 Team Status: Inactive Member Role Status Renato Lr DO Primary Care Provide r, Attending Provider Active Start: August 18, 2024 End: August 18, 2024 Team Status: Inactive Member Role Status Renato Lr DO Primary Care Provide r, Attending Provider Active Start: August 31, 2024 End: August 31, 2024 Team Status: Active Member Role Status Renato Lr DO Primary Care Provider Active Start: June 22, 2024 Billy Mata MDAttending ProviderActiveStart: June 22, 2024 Team Status: Inactive Member Role Status Renato Lr DO Primary Care Provider Active Start: July 01, 2024 End: July 01bdul Adolfo , MDAttending ProviderActiveStart: July 01, 2024 End: July 01, 2024 Team Status: Inactive Member Role Status Renato Lr DO Primary Care Provide r, Attending Provider Active Start: July 19, 2024 End: July 19, 2024 Team Status: Inactive Member Role Status Renato Lr DO Primary Care Provider Active Start: December 30, 2023 End: December 30, 2023Adelina Jerry ProviderActiveStart: December 30, 2023 End: December 30, 2023 Team Status: Inactive Member Role Status Renato Lr DO Primary Care Provide r, Attending Provider Active Start: January 01, 2024 End: January 01, 2024 Team Status: Inactive Member Role Status Renato Lr DO Primary Care Provide r, Attending Provider Active Start: January 29, 2024 End: January 29, 2024 Team Status: Inactive Member Role Status Renato Lr DO Primary Care Provide r, Attending Provider Active Start: March 04, 2024 End: March 04, 2024 Team Status: Inactive Member Role Status Renato Lr DO Primary Care Provide r, Referring Provider Active Start: March 18, 2024 End: March 18lidia Delgadodir , JACIttending ProviderActiveStart: March 18, 2024 End: March 18, 2024 Team Status: Active Member Role Status Renato Lr DO Primary Care Provide r, Attending Provider Active Start: December 09, 2023 Team Status: Active Member Role Status Renato Lr DO Primary Care Provide r, Attending Provider Active Start: December 10, 2023 Team Status: Active Member Role Status Renato Lr DO Primary Care Provide r, Attending Provider Active Start: December 16, 2023 Team Status: Inactive Member Role Status Dates Vaughn Pretty MD Attending Provider Active Lucinda Narvaez Care ProviderActive Team Status: Inactive Member Role Status Renato Lr DO Primary Care Provider Active Adelina Britton ProviderActive Team Status: Inactive Member Role Status Renato Lr DO Attending Provider Active Sta rt: August 20, 2023 End: August 20, 2023 Team Status: Inactive Member Role Status Renato Lr DO Attending Provider Active Sta rt: September 19, 2023 End: September 19, 2023 Team Status: Inactive Member Role Status Dates Anirudh Ball , DO Primary Care Provide r, Attending Provider Active Start: October 24, 2023 End: October 24, 2023 Team Status: Inactive Member Role Status Renaot Lr DO Primary Care Provide r, Attending Provider Active Start: November 05, 2023 End: November 05, 2023 Team Status: Inactive Member Role Status Renato Lr DO Primary Care Provide r, Attending Provider Active Start: November 28, 2023 End: November 28, 2023 Team Status: Active Member Role Status Renato Lr DO Primary Care Provider Active Start: March 19, 2024 Billymike Mata MDAttending ProviderActiveStart: March 19, 2024 Team Status: Inactive Member Role Status Renato Lr DO Primary Care Provider Active Start: April 01, 2024 End: April 01bdmike Mata MDAttending ProviderActiveStart: April 01, 2024 End: April 01, 2024 Team Status: Inactive Member Role Status Renato Lr DO Primary Care Provide r, Attending Provider Active Start: April 07, 2024 End: April 07, 2024 Team Status: Inactive Member Role Status Renato Lr DO Primary Care Provide r, Attending Provider Active Start: May 03, 2024 End: May 03, 2024 Team Status: Inactive Member Role Status Renato Lr DO Primary Care Provide r, Attending Provider Active Start: May 19, 2024 End: May 19, 2024 Team Status: Inactive Member Role Status Renato Lr DO Primary Care Provide r, Attending Provider Active Start: June 18, 2024 End: June 18, 2024 Name Effective Dates (start - stop) Status Members No Information Team Status: Inactive Member Role Status Renato Lr DO Primary Care Provide r, Attending Provider Active Start: January 18, 2025 End: January 18, 2025 Team Status: Inactive Member Role Status Renato Lr DO Primary Care Provide r, Attending Provider Active Start: February 07, 2025 End: February 07, 2025 Team Status: Inactive Member Role Status Renato Lr DO Primary Care Provider Active Start: January 04, 2025 End: January 04brina Lr DOAttending ProviderActiveStart: January 04, 2025 End: January 04, 2025 Team Status: Inactive Member Role Status Renato Lr DO Primary Care Provider Active Start: January 18, 2025 End: January 18enaris Lr , DOAttending ProviderActiveStart: January 18, 2025 End: January 18, 2025 Team Status: Inactive Member Role Status Dates Anirudh Lr DO Primary Care Provider Active Start: February 07, 2025 End: February 07brina Lr , DOAttending ProviderActiveStart: February 07, 2025 End: February 07, 2025 Team Status: Inactive Member Role Status Dates Anirudh Lr DO Primary Care Provider Active Start: March 10, 2025 End: March 10enaris Ball , DOAttending ProviderActiveStart: March 10, 2025 End: March 10, 2025 Team Status: Inactive Member Role Status Dates Anirudh Lr DO Primary Care Provider Active Start: April 28, 2025 End: April 28brina Lr , DOAttending ProviderActiveStart: April 28, 2025 End: April 28, 2025 Team Status: Inactive Member Role Status Dates Anirudh Lr DO Primary Care Provider Active Start: May 30, 2025 End: May 30enaris Lr , DOAttending ProviderActiveStart: May 30, 2025 End: May 30, 2025 Team Status: Active Member Role/Relationship Status Dates Anirudh Lr DO Primary Care Provider Active Team Status: Inactive Member Role/Relationship Status Dates Anirudh Lr DO Primary Care Provider Active Start: April 28, 2025 End: April 28enaris Lr , DOAttending ProviderActiveStart: April 28, 2025 End: April 28, 2025 Team Status: Inactive Member Role/Relationship Status Dates Anirudh Lr DO Primary Care Provider Active Start: May 30, 2025 End: May 30enaris Ball , DOAttending ProviderActiveStart: May 30, 2025 End: May 30, 2025 Team Status: Inactive Member Role/Relationship Status Dates Anirudh Lr DO Primary Care Provider Active Start: June 27, 2025 End: June 27brina Lr , DOAttending ProviderActiveStart: June 27, 2025 End: June 27, 2025 Team Status: Inactive Member Role/Relationship Status Dates Anirudh Lr DO Primary Care Provider Active Start: July 04, 2025 End: July 04enaris Lr , DOAttending ProviderActiveStart: July 04, 2025 End: July 04, 2025 (unrecognized sect ion and content) No Status Records FoundNo Status Records FoundNo Status Records FoundNo Status Records FoundNo Status Records Found INFORMATION SOURCE (unrecogn ized section and content) DATE CREATED AUTHOR 02/14/[address] [facility] DATE CREATED AUTHOR AUTHOR'S ORGANIZ ATION 04/21/[address] [facility] DATE CREATED AUTHOR AUTHOR'S ORGANIZ ATION 12/28/2024 [facility] DATE CREATED AUTHOR AUTHOR'S ORGANIZ ATION 02/17/2025 [facility] DATE CREATED AUTHOR AUTHOR'S ORGANIZ ATION 04/08/2025 [facility] Goals (unrecognized section and content) Goals [...] BE BASED ON THE PRIMARY CLINICAL RECORDS. [employer] provides no warranty or guarantee of the accuracy or completeness of information in this document.
[2025-07-11 14:28] LABS: Protein Creatinine Ratio Urine 0.46; Total Protein Urine Random 38.6 mg/dL (<=11.9)
[2025-07-11 14:31] LABS: Albumin Level 4.0 g/dL (3.4-5.0); Anion Gap 10.6; Blood Urea Nitrogen 29.0 mg/dL (7.0-18.0); Calcium 9.1 mg/dL (8.5-10.1); Carbon Dioxide 30.3 mmol/L (21.0-32.0); Chloride 105 mmol/L (98-107); Estimated GFR (African America 55 (>=60 mL/min/1.73m^2); Estimated GFR (Non-African Ame 46 (>=60 mL/min/1.73m^2); Glucose 109 mg/dL (74-106); Magnesium 2.0 mg/dL (1.8-2.4); Potassium 4.9 mmol/L (3.5-5.1); Sodium 141 mmol/L (136-145); Uric Acid 6.3 mg/dL (3.5-7.2)
[2025-07-11 14:46] LABS: Hematocrit 42.2 % (42.0-54.0); Hemoglobin 13.8 g/dL (14.0-18.0); Mean Corpuscular HGB Conc 32.7 g/dL (29.9-35.2); Mean Corpuscular Hemoglobin 31.9 pg (25.9-34.0); Mean Corpuscular Volume 97.7 fL (80.0-94.0); Platelet Count 242 10^3/uL (150-450); Red Blood Count 4.32 10^6/uL (4.70-6.10); White Blood Count 5.7 10^3/uL (4.0-11.0)
[2025-07-11 14:54] LABS: Glucose Urine UA NEGATIVE (NEGATIVE)
[2025-07-11 15:16] LABS: Cast Seen? NONE SEEN #/LPF (NONE SEEN); Crystals Seen? None Seen #/HPF (None Seen)
== END 2025-07-11 13:43 | disposition home or self-care (01) ==
PROVIDERS: PCP Internal Medicine; Visit Provider Internal Medicine
DX: I12.9 Hypertensive chronic kidney disease with stage 1 through stage 4 chronic kidney disease, or unspecified chronic kidney disease (principal); N18.30 Chronic kidney disease, stage 3 unspecified; E55.9 Vitamin D deficiency, unspecified; H34.8112 Central retinal vein occlusion, right eye, stable; N40.1 Benign prostatic hyperplasia with lower urinary tract symptoms; R35.1 Nocturia
CPT/HCPCS: 36415; 80069; 81001; 82306; 82570; 83735; 83970; 84156; 84550; 85027; 86803